=== PATIENT | male | born 1945 | race Caucasian/White ===

== ENCOUNTER 2022-05-26 10:55 | Inpatient (IN) ==
--- NOTE | 2022-05-26 11:21 | Emergency Department Note ---
History of Present Illness General Chief complaint: Fall Stated complaint: FALL, L SIDE WEAKNESS Time Seen by Provider: 05/26/22 11:06 Source: patient, EMS, RN notes reviewed and old records reviewed (I did review the notes from EMS) Mode of arrival: ambulatory Limitations: no limitations History of Present Illness This patient is a 77-year-old male who comes in with weakness on his and numbness on his left side. He fell last night around 7 or 8 he said he was leaning against the counter and kind of slid down he did hit his head he has minimal headache there is no loss of conscious no neck pain. He thinks he went to bed around 10:00 and felt like he was feeling okay woke up around 7 today and noticed that he was weak and numb on his left side more so numbness and weakness he does have trouble with his legs normally due to back issues but not his arm. Denies any trouble speaking or swallowing he is not on any blood thinners she has a minimal headache no change in vision. No chest pain or shortness of breath no abdominal pain no fever chills he does do peritoneal dialysis at home. Home Medications Medication Instructions Recorded Confirmed Type allopurinol 100 mg tablet 200 mg PO DAILY 03/23/21 05/26/22 History carvedilol 3.125 mg tablet 3.125 mg PO BID 03/23/21 05/26/22 History latanoprost 0.005 % eye drops 1 drp OPB HS 03/23/21 05/26/22 History oxycodone 5 mg tablet 7.5 mg PO Q6H PRN Pain 03/23/21 05/26/22 History triamcinolone acetonide 0.1 % 1 applic topical DIRECTED PRN 03/23/21 05/26/22 History topical ointment Skin Irritation lactulose 10 gram/15 mL oral 30 ml PO DAILY 05/26/22 05/26/22 History solution sevelamer carbonate 800 mg tablet 800 mg PO TIDM 05/26/22 05/26/22 History torsemide 100 mg tablet 100 mg PO DAILY 05/26/22 05/26/22 History Allergies Allergy/AdvReac Type Severity Reaction Status Date / Time No Known Allergies Allergy Verified 03/23/21 15:27 Past Med/Surg History Medical History Anemia of renal disease ESRD (end stage renal disease) on dialysis Peritoneal dialysis Glaucoma Gout History of nephrolithiasis HLD (hyperlipidemia) HTN (hypertension) Lumbar stenosis with neurogenic claudication Pre-diabetes Spondylolisthesis of lumbar region Surgical History History of lumbar fusion Hx of cataract extraction Hx of colonoscopy Hx of prostatectomy robotic assisted retropubic 2013 Family History Mother , at 88 Stroke Father , in 60s Heart disease Social History Smoking Status: Never smoker Tobacco Type: Smokeless Tobacco (Dip or Chew) Second Hand Exposure: No; Do You Dip or Chew Tobacco: Yes; Tobacco Cessation Education Requested by Patient: No Hx Alcohol Use: No Hx Substance Use: No Preferred Language: Liberian Communication Ability: Effective Food And Drug Research Scientist Required: No Beliefs That Will Affect Care: None marital status: Current Living Situation: Spouse Other Information That Helps Us Care for You: No Feels Safe at Home: Yes Safety Concerns: Feels Safe At This Time Assistive Devices: Cane Immunizations: Past medical historyperitoneal dialysis. He says he is on dialysis secondary to Advil/NSAID use he says he is on this permanently since February Social historyl[facility] in the [facility] Review of Systems A total of 10 systems reviewed and were otherwise negative Physical Exam Vital Signs Vital Signs - 24 hr 05/26/22 10:59 05/26/22 11:18 05/26/22 12:19 Temperature Temperature Source Pulse Rate 60 61 Pulse Rate [Right Apical] 61 Pulse Rate from SpO2 Sensor Respiratory Rate 16 16 Respiratory Effort / Characteristics Non-Labored Spontaneous Non-Labored Spontaneous Respiratory Depth Normal Normal Respiratory Pattern Regular Regular Blood Pressure Blood Pressure [Left Arm] 125/76 Blood Pressure Mean Blood Pressure Mean [Left Arm] 92 Pulse Oximetry 100 Oxygen Delivery Method Room Air Sepsis Recent Fever Within 48 Hours No Sepsis New/Unexplained Change in Mental Status No Sepsis Action Taken by Nursing No Action Required 05/26/22 12:24 05/26/22 11:16 05/26/22 12:00 Temperature 36.6 C Temperature Source Oral Pulse Rate 59 L 61 Pulse Rate [Right Apical] Pulse Rate from SpO2 Sensor 61 Respiratory Rate 15 16 Respiratory Effort / Characteristics Respiratory Depth Respiratory Pattern Blood Pressure 125/76 144/79 H Blood Pressure [Left Arm] Blood Pressure Mean 92 100 Blood Pressure Mean [Left Arm] Pulse Oximetry 97 100 Oxygen Delivery Method Room Air Room Air Sepsis Recent Fever Within 48 Hours Sepsis New/Unexplained Change in Mental Status Sepsis Action Taken by Nursing 05/26/22 12:44 05/26/22 13:00 05/26/22 13:30 Temperature Temperature Source Pulse Rate 65 74 65 Pulse Rate [Right Apical] Pulse Rate from SpO2 Sensor 67 73 66 Respiratory Rate 16 10 L 14 Respiratory Effort / Characteristics Respiratory Depth Respiratory Pattern Blood Pressure 128/72 121/70 127/73 Blood Pressure [Left Arm] Blood Pressure Mean 90 87 91 Blood Pressure Mean [Left Arm] Pulse Oximetry 96 94 97 Oxygen Delivery Method Room Air Room Air Room Air Sepsis Recent Fever Within 48 Hours Sepsis New/Unexplained Change in Mental Status Sepsis Action Taken by Nursing 05/26/22 14:00 Temperature Temperature Source Pulse Rate 65 Pulse Rate [Right Apical] Pulse Rate from SpO2 Sensor 66 Respiratory Rate 16 Respiratory Effort / Characteristics Respiratory Depth Respiratory Pattern Blood Pressure 148/77 H Blood Pressure [Left Arm] Blood Pressure Mean 100 Blood Pressure Mean [Left Arm] Pulse Oximetry 96 Oxygen Delivery Method Room Air Sepsis Recent Fever Within 48 Hours Sepsis New/Unexplained Change in Mental Status Sepsis Action Taken by Nursing General: Well developed well nourished older male who appears in no acute distress, breathing comfortably on room air. Normal speech HEENT: Normal cephalic atraumatic. Pupils are equal round and reactive to light. Extraocular movements are intact. Oropharynx is pink with moist mucous membranes. No swelling of the mouth lips or tongue. Neck: Supple with a midline trachea. No meningeal signs or stiffness, no JVD or bruits. No Stridor. Chest: Clear to auscultation bilaterally. No wheezes or rhonchi. No increased work of breathing. Heart: Regular rate and rhythm without murmurs or gallops. Abdomen: Soft nontender, nondistended without rebound guarding or rigidity. Extremities: No cyanosis clubbing or edema. No calf tenderness or assymetry Spine/Back. Non tender to palpation. No CVA tenderness Skin: Good turgor without rashes. Neurologic exam: Cranial nerves two through 12 are intact. Sensation is decreased to light touch in the left arm and leg. 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 Course Administered Medications Sevelamer HCl (Sevelamer Hcl 800 Mg Tablet) 800 mg PO TIDM MITZY Stop: 06/25/22 16:59 Last Admin: 05/26/22 18:04 Dose: Not Given Documented By: DW Discontinued Medications Aspirin (Aspirin 81 Mg Chew) 324 mg PO NOW STA Stop: 05/26/22 13:13 Last Admin: 05/26/22 13:29 Dose: 324 mg Documented By: TOMASZ Clopidogrel Bisulfate (Clopidogrel Bisulfate 300 Mg Tab) 600 mg PO NOW STA Stop: 05/26/22 13:13 Last Admin: 05/26/22 13:30 Dose: 600 mg Documented By: TOMASZ Sodium Chloride (Nss 1000ml) 500 mls @ 999 mls/hr IV .Q31M ONE Stop: 05/26/22 13:59 Last Infusion: 05/26/22 14:57 Dose: 0 mls/hr Documented By: Admin: 05/26/22 14:12 Dose: 999 mls/hr Documented By: ALMITA Ioversol (Optiray 320 500ml) 110 ml IV ONCE ONE Stop: 05/26/22 12:43 Last Admin: 05/26/22 12:43 Dose: 110 ml Documented By: JB Critical Care Time Critical Care Time: Yes Total Critical Care Time: 40 Due to the patient presenting with strokelike symptoms, the need to call a stroke alert, discussions with multiple consultants including neurology and consideration for potential thrombolytics or neuro intervention that are time- limited, frequent reassessment and family discussion, I have personally spent greater than 30 minutes of critical care time in the direct management of this patient. This includes bedside care, interpretation of diagnostic studies, and testing, discussion with consultants, patient, and family members, and other required patient management activities. This 30 minutes is in excess of all separately billable procedures. Medical Decision Making Differential Diagnosis CVA, intracranial hemorrhage, trauma, cervical spine injury, TIA, infection, electrolyte or metabolic abnormal Medical Records Attestation: I reviewed the patient's medical records. Home Medications Current Medication List: was personally reviewed by me Laboratory Data Attestation: I reviewed the patient's lab results. 05/26/22 11:10 05/26/22 11:10 Lab Results 05/26/22 05/26/22 05/26/22 Range/Units 11:03 11:10 11:10 WBC 5.50 (4.8-10.8) K/ul RBC 4.00 L (4.70-6.10) M/uL Hgb 12.5 L (14.0-18.0) g/dl POC Hgb (14.0-18.0) g/dl Hct 37.2 L (42.0-52.0) % POC Hct (42-52) % MCV 93.0 (80.0-100.0) fL MCH 31.3 (25.0-34.0) pg MCHC 33.6 (32.0-36.0) g/dL RDW Std Deviation 56.7 H (36.4-46.3) fL RDW Coeff of Bayron 16.5 H (11.5-14.5) % Plt Count 256 (130-400) K/uL MPV 10.0 (9.4-12.4) fL Immature Gran % (Auto) 0.2 % Neut % (Auto) 61.8 % Lymph % (Auto) 22.0 % [place] % (Auto) 8.7 % Eos % (Auto) 6.2 % Baso % (Auto) 1.1 % Neut # (Auto) 3.40 (1.40-6.50) K/uL Lymph # (Auto) 1.21 (1.2-3.4) K/uL [place] # (Auto) 0.48 (0.11-0.59) K/uL Eos # (Auto) 0.34 (0-0.50) K/uL Baso # (Auto) 0.06 (0-0.2) K/uL Immature Gran # (Auto) 0.01 (0.01-0.20) K/uL PT 10.2 (9.0-12.0) Seconds INR 1.0 (0.9-1.1) APTT 25.2 (21.0-31.0) Seconds PTT Ratio 0.9 POC Sodium (135-144) mmol/L Sodium (136-145) mmol/L POC Potassium (3.3-5.0) mmol/L Potassium (3.5-5.1) mmol/L POC Chloride (101-112) mmol/L Chloride (98-107) mmol/L Carbon Dioxide (21-32) mmol/L POC Total CO2 (24-31) mmol/L Anion Gap (3-11) POC Anion Gap (16-25) mmol/L POC BUN (7-18) mg/dl BUN (6-23) mg/dl Creatinine (0.6-1.4) mg/dl POC Creatinine (0.6-1.3) mg/dl Est Cr Clr Drug Dosing ml/min Est GFR ( Amer) ml/min Est GFR (Non-Af Amer) ml/min BUN/Creatinine Ratio (10-20) Glucose (70-99(Fasting)) mg/dl POC Glucose 72 (70-99) mg/dl POC Glucose (other) (70-99) mg/dl Calcium (8.6-10.3) mg/dl POC Ioniz Calcium Karlo (1.12-1.32) mmol/l Magnesium (1.7-2.4) mg/dl Total Bilirubin (0.2-1.0) mg/dl AST (13-39) U/L ALT (7-52) U/L Alkaline Phosphatase (34-104) U/L Troponin I High Sens (0-20) pg/ml Total Protein (6.0-8.3) gm/dl Albumin (3.4-5.0) gm/dl Globulin (2.5-4.0) gm/dl Albumin/Globulin Ratio (0.9-2) SARS-CoV-2, RNA, NAAT (NEGATIVE) Blood Type Antibody Screen 05/26/22 05/26/22 05/26/22 Range/Units 11:10 11:11 11:36 WBC (4.8-10.8) K/ul RBC (4.70-6.10) M/uL Hgb (14.0-18.0) g/dl POC Hgb 11.2 L (14.0-18.0) g/dl Hct (42.0-52.0) % POC Hct 33 L (42-52) % MCV (80.0-100.0) fL MCH (25.0-34.0) pg MCHC (32.0-36.0) g/dL RDW Std Deviation (36.4-46.3) fL RDW Coeff of Bayron (11.5-14.5) % Plt Count (130-400) K/uL MPV (9.4-12.4) fL Immature Gran % (Auto) % Neut % (Auto) % Lymph % (Auto) % [place] % (Auto) % Eos % (Auto) % Baso % (Auto) % Neut # (Auto) (1.40-6.50) K/uL Lymph # (Auto) (1.2-3.4) K/uL [place] # (Auto) (0.11-0.59) K/uL Eos # (Auto) (0-0.50) K/uL Baso # (Auto) (0-0.2) K/uL Immature Gran # (Auto) (0.01-0.20) K/uL PT (9.0-12.0) Seconds INR (0.9-1.1) APTT (21.0-31.0) Seconds PTT Ratio POC Sodium 137 (135-144) mmol/L Sodium 134 L (136-145) mmol/L POC Potassium 4.6 (3.3-5.0) mmol/L Potassium 4.0 (3.5-5.1) mmol/L POC Chloride 99 L (101-112) mmol/L Chloride 95 L (98-107) mmol/L Carbon Dioxide 25 (21-32) mmol/L POC Total CO2 26 (24-31) mmol/L Anion Gap 14 H (3-11) POC Anion Gap 17.0 (16-25) mmol/L POC BUN 64 H (7-18) mg/dl BUN 55 H (6-23) mg/dl Creatinine 6.35 H* (0.6-1.4) mg/dl POC Creatinine 6.7 H* (0.6-1.3) mg/dl Est Cr Clr Drug Dosing 8.9 ml/min Est GFR ( Amer) 9.0 ml/min Est GFR (Non-Af Amer) 7.8 ml/min BUN/Creatinine Ratio 8.7 L (10-20) Glucose 92 (70-99(Fasting)) mg/dl POC Glucose (70-99) mg/dl POC Glucose (other) 87 (70-99) mg/dl Calcium 9.8 (8.6-10.3) mg/dl POC Ioniz Calcium Karlo 1.04 L (1.12-1.32) mmol/l Magnesium 2.4 (1.7-2.4) mg/dl Total Bilirubin 0.5 (0.2-1.0) mg/dl AST 26 (13-39) U/L ALT 21 (7-52) U/L Alkaline Phosphatase 69 (34-104) U/L Troponin I High Sens 18.1 (0-20) pg/ml Total Protein 8.0 (6.0-8.3) gm/dl Albumin 4.0 (3.4-5.0) gm/dl Globulin 4.0 (2.5-4.0) gm/dl Albumin/Globulin Ratio 1.0 (0.9-2) SARS-CoV-2, RNA, NAAT (NEGATIVE) Blood Type A Negative Antibody Screen NEGATIVE 05/26/22 Range/Units 12:21 WBC (4.8-10.8) K/ul RBC (4.70-6.10) M/uL Hgb (14.0-18.0) g/dl POC Hgb (14.0-18.0) g/dl Hct (42.0-52.0) % POC Hct (42-52) % MCV (80.0-100.0) fL MCH (25.0-34.0) pg MCHC (32.0-36.0) g/dL RDW Std Deviation (36.4-46.3) fL RDW Coeff of Bayron (11.5-14.5) % Plt Count (130-400) K/uL MPV (9.4-12.4) fL Immature Gran % (Auto) % Neut % (Auto) % Lymph % (Auto) % [place] % (Auto) % Eos % (Auto) % Baso % (Auto) % Neut # (Auto) (1.40-6.50) K/uL Lymph # (Auto) (1.2-3.4) K/uL [place] # (Auto) (0.11-0.59) K/uL Eos # (Auto) (0-0.50) K/uL Baso # (Auto) (0-0.2) K/uL Immature Gran # (Auto) (0.01-0.20) K/uL PT (9.0-12.0) Seconds INR (0.9-1.1) APTT (21.0-31.0) Seconds PTT Ratio POC Sodium (135-144) mmol/L Sodium (136-145) mmol/L POC Potassium (3.3-5.0) mmol/L Potassium (3.5-5.1) mmol/L POC Chloride (101-112) mmol/L Chloride (98-107) mmol/L Carbon Dioxide (21-32) mmol/L POC Total CO2 (24-31) mmol/L Anion Gap (3-11) POC Anion Gap (16-25) mmol/L POC BUN (7-18) mg/dl BUN (6-23) mg/dl Creatinine (0.6-1.4) mg/dl POC Creatinine (0.6-1.3) mg/dl Est Cr Clr Drug Dosing ml/min Est GFR ( Amer) ml/min Est GFR (Non-Af Amer) ml/min BUN/Creatinine Ratio (10-20) Glucose (70-99(Fasting)) mg/dl POC Glucose (70-99) mg/dl POC Glucose (other) (70-99) mg/dl Calcium (8.6-10.3) mg/dl POC Ioniz Calcium Karlo (1.12-1.32) mmol/l Magnesium (1.7-2.4) mg/dl Total Bilirubin (0.2-1.0) mg/dl AST (13-39) U/L ALT (7-52) U/L Alkaline Phosphatase (34-104) U/L Troponin I High Sens (0-20) pg/ml Total Protein (6.0-8.3) gm/dl Albumin (3.4-5.0) gm/dl Globulin (2.5-4.0) gm/dl Albumin/Globulin Ratio (0.9-2) SARS-CoV-2, RNA, NAAT NEGATIVE (NEGATIVE) Blood Type Antibody Screen Imaging Data Attestation: I personally reviewed and interpreted this imaging study as follows: My Impression: Head CTno hemorrhage or mass effect seen Radiologist's Impression: Head CT 05/26/22 11:[address] DOSE: HISTORY: Left-sided paresthesias. Recent head injury. neuro deficit, acute stroke suspected TECHNIQUE: Multiaxial CT images of the head were performed without the use of intravenous contrast. Automated exposure control was utilized for this study. A dose lowering technique was utilized adhering to the principles of ALARA. Comparison: None. Findings: The paranasal sinuses and mastoid air cells are clear. There is a 2.5 cm lucent lesion within the high convexity right parietal bone. This favors a benign lesion such as a hemangioma. Otherwise, the calvarium and skull base are intact. The ventricles and sulci which remain mild age-related involutional changes. There is no hematoma, midline shift, intracranial mass identified. Within the right posterior sylvian fissure on image 16 there is a punctate hyperdense focus suspicious for thrombus within a branch of the distal right MCA. Distal to this area there is a focal hypodensity within the right parietal lobe likely corresponding to an acute distal MCA territory infarct. This is best seen on image 19. Impression: Within the right posterior sylvian fissure there is a punctate hyperdense focus suspicious for thrombus within a branch of the distal right MCA. Distal to this area there is a focal hypodensity within the right parietal lobe likely corresponding to an acute distal MCA territory infarct. ACT 112: Negative or not required by law. Electronically signed by: Marito Mcgee M.D. 05/26/2022 11:[address] 05/26/22 11:18 CT cervical spine wo con CLINICAL HISTORY: fall TECHNIQUE: Multidetector row helical CT of the cervical spine was performed without administration of intravenous contrast. Coronal and sagittal reformations were obtained. Automated dose lowering techniques and/or adjustment according to patient size were utilized for this exam. Comparison: None available at the time of this dictation. FINDINGS: No acute fractures or subluxations are identified. Degenerative changes are seen in the visualized spine. The alignment is normal. Soft tissues are unremarkable. IMPRESSION: Degenerative changes without evidence of acute bony injury. ACT 112: Negative or not required by law. Electronically signed by: Ren Thompson M.D. 05/26/2022 11:37 AM Head CTA 05/26/22 12:13 HEAD CTA HISTORY: Left-sided paresthesias. Abnormal head CT. cva, eval for large vessel occlusion TECHNIQUE: Multiaxial CT images of the head were performed both before and after the intravenous administration of contrast to evaluate the major cerebral vessels. Maximum intensity projection images were also obtained. A dose lowe ring technique was utilized adhering to the principles of ALARA. COMPARISON: None. FINDINGS: Small area of hypodensity within the right parietal lobe again noted consistent with an acute infarct. There is a small distal branch of the right MCA within the distal sylvian fissure best seen on images 169 through 179 which is severely attenuated consistent with the area of thrombus seen on the prior study. This accounts for the acute right MCA territory infarct. Otherwise, the bilateral ACAs, bilateral sewer repairer, and left MCA show no significant stenosis, occlusion, or aneurysm. Mild calcified plaque within the bilateral carotid siphons without significant stenosis or occlusion. A basilar artery and left vertebral artery widely patent. 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 The distal right vertebral artery is severely hypoplastic and not well visualized. The major dural venous sinuses are patent. IMPRESSION: 1. Small area of hypodensity within the right parietal lobe again noted consistent with an acute infarct. 2. There is a small distal branch of the right MCA within the distal sylvian fissure which is severely attenuated consistent with the area of thrombus seen on the prior study. This accounts for the acute right MCA territory infarct. 3. 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 4. Severely hypoplastic distal right vertebral artery which is not well visualized. ACT 112: Negative or not required by law. Electronically signed by: Marito Mcgee M.D. 05/26/2022 1:09 PM Neck CTA 05/26/22 12:13 CT ANGIOGRAPHY OF THE NECK WITH CONTRAST CLINICAL HISTORY: Neuro deficit. Possible stroke. Evaluate for large vessel occlusion. COMPARISON STUDY: No previous studies for comparison. Technique: CT angiography of the carotid and vertebral arteries was obtained using [employer] and 3D reconstruction on an independent workstation. NASCET criteria was utilized. Automated exposure control was utilized for the study. A dose lowering technique was utilized adhering to the principles of ALARA. CT DOSE: 509.50 mGy.cm Findings: Visualized portions of the lung apices are unremarkable. There is no cervical lymphadenopathy. There is moderate plaque within the proximal left internal carotid artery without stenosis. The left common carotid and cervical internal carotid arteries are patent. There is moderate plaque of the left subclavian artery without stenosis. The left vertebral artery is dominant and patent. The right vertebral artery is diminutive and ends in PICA. There is no stenosis within the right common carotid artery. Moderate plaque within this vessel is noted. There is extensive plaque within the proximal right internal carotid artery. Vessel narrowing is difficult to measure on the axial images however there is approximate 40-50% stenosis of the proximal right internal carotid artery. No additional stenoses are identified. IMPRESSION: 1. Extensive plaque within the proximal right internal carotid artery with approximate 40-50% stenosis. 2. Moderate plaque within the left internal carotid artery without stenosis. 3. Dominant, patent left carotid artery. Diminutive right vertebral artery, on a congenital basis. ACT 112: Negative or not required by law. Electronically signed by: Junito Kim M.D. 05/26/2022 1:06 PM ECG Data Attestation: I personally reviewed and interpreted this ECG as follows: Indication: + weakness Rate (beats per minute): 58 Rhythm: + sinus bradycardia ECG Intervals/blocks: + Normal QRS, + Normal QT and + Normal UT ECG [place]: + Normal ECG ST segments: + Normal ST segments ECG Findings: no PACs or no PVCs Comparison ECG Date: from (03/23/21) Change: no significant change MDM Narrative This patient comes in as described above he was placed in room C9. He has strokelike symptoms. It sounds like they likely started last night he woke up this way but also had an episode last night when he fell. He is on no blood thinners. He is outside the tPA window at this point. I did call a stroke alert and talk to Dr. Epstein. Initially I did the CAT scan of the head and neck without contrast as I wanted to clarify his renal status better to ensure that he was permanently on dialysis. I did talk to Dr. 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 She said that if he still makes urine they would try to avoid contrast if possible. If it may alter his medical care, the then we can do it. I discussed this with Dr. Epstein when the CAT scan came back and the radiologist was concerned on the CAT scan for a MCA occlusion Dr. Epstein the neurologist felt like the benefit would outweigh the risk and if he has a large vessel occlusion he may be amenable to an intervention. I discussed this with the family and explained the risk and the benefits and they agree. CT angiogram does show an occlusion but it is distal to the point where it is not amenable to neuro intervention. Dr. Epstein reviewed the angiography and agrees. He did recommend putting the patient on aspirin and Plavix which I ordered both also IV hydration which I ordered 500 cc bolus given the fact that he is a dialysis p atient I started with just 500 and having permissive hypertension up to 220 systolic. I did consult and discussed the case with the [facility] team and the patient will be admitted Continuous cardiac monitoring: Orders placed in EMR for continuous cardiac monitoring. Upon my interpretation patient was noted to be sinus bradycardia with a rate of 60 Impression & Plan Stroke, Acute left-sided weakness, Left sided numbness, ESRD (end stage renal disease) on dialysis Discharge Plan Visit Data Chief Complaint: Fall Stated Complaint: FALL, L SIDE WEAKNESS ED Provider: Medhat Ambrocio Discharge Problem: Stroke, Acute left-sided weakness, Left sided numbness, ESRD (end stage renal disease) on dialysis Patient Disposition: Admitted As Inpatient Discharge Instructions Interventions: ED Discharge Assessment Last Done: 05/26/22 17:05
[2022-05-26 11:32] LABS: Basophils # (auto) 0.06 K/uL (0-0.2); Basophils % (auto) 1.1 %; Eosinophils # (auto) 0.34 K/uL (0-0.50); Eosinophils % (auto) 6.2 %; Hematocrit (blood only) 37.2 % (42.0-52.0); Hemoglobin 12.5 g/dl (14.0-18.0); Immature Granulocytes # (auto) 0.01 K/uL (0.01-0.20); Immature Granulocytes % (auto) 0.2 %; Lymphocytes # (auto) 1.21 K/uL (1.2-3.4); Mean Corpuscular Hemoglobin 31.3 pg (25.0-34.0); Mean Corpuscular Hgb Conc 33.6 g/dL (32.0-36.0); Monocytes # (auto) 0.48 K/uL (0.11-0.59); Monocytes % (auto) 8.7 %; Neutrophils % (auto) 61.8 %; Platelet Count 256 K/uL (130-400); RDW Coefficient of Variation 16.5 % (11.5-14.5); RDW Standard Deviation 56.7 fL (36.4-46.3)
--- NOTE | 2022-05-26 11:39 | CT Scan Report ---
CT cervical spine wo con CLINICAL HISTORY: fall TECHNIQUE: Multidetector row helical CT of the cervical spine was performed without administration of intravenous contrast. Coronal and sagittal reformations were obtained. Automated dose lowering techn iques and/or adjustment according to patient size were utilized for this exam. Comparison: None available at the time of this dictation. FINDINGS: No acute fractures or subluxations are identified. Degenerative changes are seen in the visualized sp ine. The alignment is normal. Soft tissues are unremarkable. IMPRESSION: Degenerative changes without evidence of acute bony injury. ACT 112: Negative or not required by law. Electronically signed by: Ren Thompson M.D. 05/26/2022 11:37 AM
[2022-05-26 11:40] LABS: iSTAT Creatinine 6.7 mg/dl (0.6-1.3); iSTAT Hemoglobin 11.2 g/dl (14.0-18.0); iSTAT Ionized Calcium 1.04 mmol/l (1.12-1.32); iSTAT Potassium 4.6 mmol/L (3.3-5.0)
--- NOTE | 2022-05-26 11:49 | CT Scan Report ---
HEAD CT NONCONTRAST CT DOSE: HISTORY: Left-sided paresthesias. Recent head injury. neuro deficit, acute stroke suspected TECHNIQUE: Multiaxial CT images of the head were performed without the use of intravenous contrast. A utomated exposure control was utilized for this study. A dose lowering technique was utilized adheri ng to the principles of ALARA. Comparison: None. Findings: The paranasal sinuses and mastoid air cells are clear. There is a 2.5 cm lucent lesion with in the high convexity right parietal bone. This favors a benign lesion such as a hemangioma. Otherwis e, the calvarium and skull base are intact. The ventricles and sulci which remain mild age-related in volutional changes. There is no hematoma, midline shift, intracranial mass identified. Within the rig ht posterior sylvian fissure on image 16 there is a punctate hyperdense focus suspicious for thrombus within a branch of the distal right MCA. Distal to this area there is a focal hypodensity within the right parietal lobe likely corresponding to an acute distal MCA territory infarct. This is best seen on image 19. Impression: Within the right posterior sylvian fissure there is a punctate hyperdense focus suspicious for thromb us within a branch of the distal right MCA. Distal to this area there is a focal hypodensity within t he right parietal lobe likely corresponding to an acute distal MCA territory infarct. ACT 112: Negative or not required by law. Electronically signed by: Marito Mcgee M.D. 05/26/2022 11:47 AM
[2022-05-26 12:00] LABS: BUN Creatinine Ratio 8.7 (10-20); Bilirubin,Total 0.5 mg/dl (0.2-1.0); Calcium 9.8 mg/dl (8.6-10.3); Creatinine Clr Calc Pharmacy 8.9 ml/min; Est GFR (Non-African American) 7.8 ml/min; Magnesium 2.4 mg/dl (1.7-2.4); Troponin I High Sensitivity 18.1 pg/ml (0-20)
[2022-05-26 12:04] LABS: Partial Thromboplastin Ratio 0.9; Partial Thromboplastin Time 25.2 Seconds (21.0-31.0); Prothrombin Time 10.2 Seconds (9.0-12.0)
[2022-05-26] MEDS ORDERED: OPTIRAY 320 500ml IV ONE (12:42)
--- NOTE | 2022-05-26 13:09 | CT Scan Report ---
CT ANGIOGRAPHY OF THE NECK WITH CONTRAST CLINICAL HISTORY: Neuro deficit. Possible stroke. Evaluate for large vessel occlusion. COMPARISON STUDY: No previous studies for comparison. Technique: CT angiography of the carotid and vertebral arteries was obtained using [employer] and 3D rec onstruction on an independent workstation. NASCET criteria was utilized. Automated exposure control was utilized for the study. A dose lowering technique was utilized adhering to the principles of ALA RA. CT DOSE: 509.50 mGy.cm Findings: Visualized portions of the lung apices are unremarkable. There is no cervical lymphadenopat hy. There is moderate plaque within the proximal left internal carotid artery without stenosis. The l eft common carotid and cervical internal carotid arteries are patent. There is moderate plaque of the left subclavian artery without stenosis. The left vertebral artery is dominant and patent. The right vertebral artery is diminutive and ends in PICA. There is no stenosis within the right common caroti d artery. Moderate plaque within this vessel is noted. There is extensive plaque within the proximal right internal carotid artery. Vessel narrowing is difficult to measure on the axial images however t here is approximate 40-50% stenosis of the proximal right internal carotid artery. No additional sten oses are identified. IMPRESSION: 1. Extensive plaque within the proximal right internal carotid artery with approximate 40-50% stenosi s. 2. Moderate plaque within the left internal carotid artery without stenosis. 3. Dominant, patent left carotid artery. Diminutive right vertebral artery, on a congenital basis. ACT 112: Negative or not required by law. Electronically signed by: Junito Kim M.D. 05/26/2022 1:06 PM
--- NOTE | 2022-05-26 13:11 | CT Scan Report ---
HEAD CTA HISTORY: Left-sided paresthesias. Abnormal head CT. cva, eval for large vessel occlusion TECHNIQUE: Multiaxial CT images of the head were performed both before and after the intravenous admi nistration of contrast to evaluate the major cerebral vessels. Maximum intensity projection images we re also obtained. A dose lowering technique was utilized adhering to the principles of ALARA. COMPARISON: None. FINDINGS: Small area of hypodensity within the right parietal lobe again noted consistent with an acu te infarct. There is a small distal branch of the right MCA within the distal sylvian fissure best se en on images 169 through 179 which is severely attenuated consistent with the area of thrombus seen o n the prior study. This accounts for the acute right MCA territory infarct. Otherwise, the bilateral ACAs, bilateral ror engineer, and left MCA show no significant stenosis, occlusion, or aneurysm. Mild calcifi ed plaque within the bilateral carotid siphons without significant stenosis or occlusion. A basilar a rtery and left vertebral artery widely patent. Focal fusiform aneurysmal dilatation of the distal lef t vertebral artery on image 91 measuring 5.6 mm. The distal right vertebral artery is severely hypopl astic and not well visualized. The major dural venous sinuses are patent. IMPRESSION: 1. Small area of hypodensity within the right parietal lobe again noted consistent with an acute infa rct. 2. There is a small distal branch of the right MCA within the distal sylvian fissure which is severel y attenuated consistent with the area of thrombus seen on the prior study. This accounts for the acut e right MCA territory infarct. 3. 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 4. Severely hypoplastic distal right vertebral artery which is not well visualized. ACT 112: Negative or not required by law. Electronically signed by: Marito Mcgee M.D. 05/26/2022 1:09 PM
[2022-05-26] MEDS ORDERED: ASPIRIN 81 MG CHEW PO STA (13:12)
[2022-05-26] MEDS ORDERED: CLOPIDOGREL BISULFATE 300 MG TAB PO STA (13:12)
[2022-05-26] MEDS ORDERED: SODIUM CHLORIDE 0.9% 1000ML 500 ML IV ONE (13:29)
--- NOTE | 2022-05-26 14:05 | History & Physical Report ---
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 2. There is a small distal branch of the right MCA within the distal sylvian fissure which is severely attenuated consistent with the area of thrombus seen on the prior study. This accounts for the acute right MCA territory infarct. 3. 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 4. Severely hypoplastic distal right vertebral artery which is not well visualized. Head CT: Within the right posterior sylvian fissure there is a punctate hyperdense focus suspicious for thrombus within a branch of the distal right MCA. Distal to this area there is a focal hypodensity within the right parietal lobe likely corresponding to an acute distal MCA territory infarct. admit to PCU Consult neurology continue dual antiplatelet therapy with ASA and plavix Initiate statin therapy continue tele monitoring echocardiogram pt out of window for TPA and per Tele stroke distal occlusion not amendable to intervention Neuro checks permissive HTN A1c, lipid panel in am PT/OT/ST ESRD on PD nephrology consulted daily weights, renal diet HTN allow for permissive HTN will hold bp meds for now, coreg and torsemide Pre diabetes a1c 6.0 03/2022 diet/lifestyle modifications no indication for monitoring at this time Gout continue allopurinol DVT ppx: ASA, Plavix, SCDS PCP: Praneeth FULL CODE Dispo: Admit to PCU for further stroke work up A total of 90 minutes was spent with greater than 50% of that time personally viewing all current laboratory work and diagnostic imaging studies obtained in the ED. Additionally, I was able to view the patients past medication reconciliation and history with direct visualization in the patients chart. Included in the time above, a portion of that time was spent assessing the patient while discussing and collaborating with specialists, if necessary, and making medical decision making on treatment plan. All of the above was collaborated with Dr. Ennis. Please see addendum for further details. History of Present Illness Chief Complaint: L sided weakness/numbness x 1 day. Primary Care Provider: Barrett Dacosta MD This is a 77-year-old male who has significant past medical history of end-stage renal disease on PD, T2DM, HTN, HLD, gout, anemia of renal disease, glaucoma, history of prostate cancer who presents to ED secondary to left-sided numbness and weakness since this morning. Patient fell last night around 7 or 8 when he was leaning against the counter and kind of slid down and hit his head but there was no loss of consciousness. EMS was summoned by but at that time he would not come to ER. He does have a minimal headache but no neck pain. He believes he went to bed around 10 PM and was feeling in his normal state of health at that time. He woke up at approximately 7 AM today and noticed that he was experiencing weakness and numbness to left side more than usual. This morning he was unable to walk. Typically he walks w/o assist device. He denies f/c/s, dizziness, lightheaded, cough, cp, sob, palpitations, n/v/d, abd pain, change in bowel or urinary habits. Currently he denies problems other than weakness/numbness to L arm/leg. He denies difficulty talking of swallowing. In ED patient was hemodynamically stable. A stroke alert was called due to neurological symptoms. Initial head CT concerning for suspicious thrombus within the branch of the distal right MCA as distal to this area there was a focal hypodensity within the right parietal lobe likely corresponding with an acute distal MCA territory infarct. He underwent head and neck CTA which revealed again small area of hypodensity within the right parietal lobe consistent with acute infarct, small distal branch of right MCA within distal sylvian fissure which is severely attenuated consistent with area of thrombus seen on the prior study. This accounts for the acute right MCA territory infarct. Foca fusiform aneurysm dilatation of the distal left vertebral artery measuring 5.6 mm as well as a severe hypoplastic distal right vertebral artery which is not well visualized. Neck CTA revealed extensive plaque within the proximal right internal carotid artery approximately 40 to 50% stenosis, moderate plaque within the left internal carotid artery without stenosis. Dominant, patent left carotid artery. 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 Telemetry neurologist recommended loading with ASA and Plavix. Patient was out of window for thrombolytic and occlusion to distal for intervention. Allergies Allergy/AdvReac Type Severity Reaction Status Date / Time No Known Allergies Allergy Verified 03/23/21 15:27 Home Medications Medication Instructions Recorded Confirmed Type allopurinol 100 mg tablet 200 mg PO DAILY 03/23/21 05/26/22 History carvedilol 3.125 mg tablet 3.125 mg PO BID 03/23/21 05/26/22 History latanoprost 0.005 % eye drops 1 drp OPB HS 03/23/21 05/26/22 History oxycodone 5 mg tablet 7.5 mg PO Q6H PRN Pain 03/23/21 05/26/22 History triamcinolone acetonide 0.1 % 1 applic topical DIRECTED PRN 03/23/21 05/26/22 History topical ointment Skin Irritation lactulose 10 gram/15 mL oral 30 ml PO DAILY 05/26/22 05/26/22 History solution sevelamer carbonate 800 mg tablet 800 mg PO TIDM 05/26/22 05/26/22 History torsemide 100 mg tablet 100 mg PO DAILY 05/26/22 05/26/22 History Past Med/Surg History Medical History Anemia of renal disease ESRD (end stage renal disease) on dialysis Peritoneal dialysis Glaucoma Gout History of nephrolithiasis HLD (hyperlipidemia) HTN (hypertension) Lumbar stenosis with neurogenic claudication Pre-diabetes Spondylolisthesis of lumbar region Surgical History History of lumbar fusion Hx of cataract extraction Hx of colonoscopy Hx of prostatectomy robotic assisted retropubic 2013 Family History Mother , at 88 Stroke Father , in 60s Heart disease Social History Smoking Status: Never smoker Tobacco Type: Smokeless Tobacco (Dip or Chew) Second Hand Exposure: No; Do You Dip or Chew Tobacco: Yes; Tobacco Cessation Education Requested by Patient: No Hx Alcohol Use: No Hx Substance Use: No Preferred Language: Kiswahili Communication Ability: Effective Oil Refiner Required: No Beliefs That Will Affect Care: None marital status: Current Living Situation: Spouse Other Information That Helps Us Care for You: No Feels Safe at Home: Yes Safety Concerns: Feels Safe At This Time Assistive Devices: Cane Review of Systems Review of Systems: All systems reviewed & are unremarkable except as noted in HPI & below Physical Exam Physical Exam: please refer to Dr. Ennis addendum for physical exam findings. Results & Data Results & Data Vital Signs (Past 12 Hours) Vital Signs Temp Pulse Pulse Resp BP BP Pulse Ox 05/26/22 13:00 74 10 L 121/70 94 05/26/22 12:44 65 16 128/72 96 05/26/22 12:00 61 16 144/79 H 100 05/26/22 11:16 59 L 15 125/76 97 05/26/22 12:24 36.6 C 05/26/22 12:19 61 05/26/22 11:18 61 16 125/76 100 05/26/22 10:59 60 16 O2 Del Method 05/26/22 13:00 Room Air 05/26/22 12:44 Room Air 05/26/22 12:00 Room Air 05/26/22 11:16 Room Air 05/26/22 12:24 05/26/22 12:19 05/26/22 11:18 Room Air 05/26/22 10:[address] 05/26/22 11:[address] DOSE: HISTORY: Left-sided paresthesias. Recent head injury. neuro deficit, acute stroke suspected TECHNIQUE: Multiaxial CT images of the head were performed without the use of intravenous contrast. Automated exposure control was utilized for this study. A dose lowering technique was utilized adhering to the principles of ALARA. Comparison: None. Findings: The paranasal sinuses and mastoid air cells are clear. There is a 2.5 cm lucent lesion within the high convexity right parietal bone. This favors a benign lesion such as a hemangioma. Otherwise, the calvarium and skull base are intact. The ventricles and sulci which remain mild age-related involutional changes. There is no hematoma, midline shift, intracranial mass identified. Within the right posterior sylvian fissure on image 16 there is a punctate hyperdense focus suspicious for thrombus within a branch of the distal right MCA. Distal to this area there is a focal hypodensity within the right parietal lobe likely corresponding to an acute distal MCA territory infarct. This is best seen on image 19. Impression: Within the right posterior sylvian fissure there is a punctate hyperdense focus suspicious for thrombus within a branch of the distal right MCA. Distal to this area there is a focal hypodensity within the right parietal lobe likely corresponding to an acute distal MCA territory infarct. ACT 112: Negative or not required by law. Electronically signed by: Marito Mcgee M.D. 05/26/2022 11:[address] 05/26/22 11:18 CT cervical spine wo con CLINICAL HISTORY: fall TECHNIQUE: Multidetector row helical CT of the cervical spine was performed without administration of intravenous contrast. Coronal and sagittal reformations were obtained. Automated dose lowering techniques and/or adjustment according to patient size were utilized for this exam. Comparison: None available at the time of this dictation. FINDINGS: No acute fractures or subluxations are identified. Degenerative changes are seen in the visualized spine. The alignment is normal. Soft tissues are unremarkable. IMPRESSION: Degenerative changes without evidence of acute bony injury. ACT 112: Negative or not required by law. Electronically signed by: Ren Thompson M.D. 05/26/2022 11:37 AM Head CTA 05/26/22 12:13 HEAD CTA HISTORY: Left-sided paresthesias. Abnormal head CT. cva, eval for large vessel occlusion TECHNIQUE: Multiaxial CT images of the head were performed both before and after the intravenous administration of contrast to evaluate the major cerebral vessels. Maximum intensity projection images were also obtained. A dose lowering technique was utilized adhering to the principles of ALARA. COMPARISON: None. FINDINGS: Small area of hypodensity within the right parietal lobe again noted consistent with an acute infarct. There is a small distal branch of the right MCA within the distal sylvian fissure best seen on images 169 through 179 which is severely attenuated consistent with the area of thrombus seen on the prior study. This accounts for the acute right MCA territory infarct. Otherwise, the bilateral ACAs, bilateral hall clerk, and left MCA show no significant stenosis, occlusion, or aneurysm. Mild calcified plaque within the bilateral carotid siphons without significant stenosis or occlusion. A basilar artery and left yakelin tebral artery widely patent. 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 The distal right vertebral artery is severely hypoplastic and not well visualized. The major dural venous sinuses are patent. IMPRESSION: 1. Small area of hypodensity within the right parietal lobe again noted consistent with an acute infarct. 2. There is a small distal branch of the right MCA within the distal sylvian fissure which is severely attenuated consistent with the area of thrombus seen on the prior study. This accounts for the acute right MCA territory infarct. 3. 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 4. Severely hypoplastic distal right vertebral artery which is not well visualized. ACT 112: Negative or not required by law. Electronically signed by: Marito Mcgee M.D. 05/26/2022 1:09 PM Neck CTA 05/26/22 12:13 CT ANGIOGRAPHY OF THE NECK WITH CONTRAST CLINICAL HISTORY: Neuro deficit. Possible stroke. Evaluate for large vessel occlusion. COMPARISON STUDY: No previous studies for comparison. Technique: CT angiography of the carotid and vertebral arteries was obtained using [employer] and 3D reconstruction on an independent workstation. NASCET criteria was utilized. Automated exposure control was utilized for the study. A dose lowering technique was utilized adhering to the principles of ALARA. CT DOSE: 509.50 mGy.cm Findings: Visualized portions of the lung apices are unremarkable. There is no cervical lymphadenopathy. There is moderate plaque within the proximal left internal carotid artery without stenosis. The left common carotid and cervical internal carotid arteries are patent. There is moderate plaque of the left subclavian artery without stenosis. The left vertebral artery is dominant and patent. The right vertebral artery is diminutive and ends in PICA. There is no stenosis within the right common carotid artery. Moderate plaque within this vessel is noted. There is extensive plaque within the proximal right internal carotid artery. Vessel narrowing is difficult to measure on the axial images however there is approximate 40-50% stenosis of the proximal right internal carotid artery. No additional stenoses are identified. IMPRESSION: 1. Extensive plaque within the proximal right internal carotid artery with approximate 40-50% stenosis. 2. Moderate plaque within the left internal carotid artery without stenosis. 3. Dominant, patent left carotid artery. Diminutive right vertebral artery, on a congenital basis. ACT 112: Negative or not required by law. Electronically signed by: Junito Kim M.D. 05/26/2022 1:06 PM Medications Administered Medication List Discontinued Medications Aspirin (Aspirin 81 Mg Chew) 324 mg PO NOW STA Stop: 05/26/22 13:13 Last Admin: 05/26/22 13:29 Dose: 324 mg Documented By: TOMASZ Clopidogrel Bisulfate (Clopidogrel Bisulfate 300 Mg Tab) 600 mg PO NOW STA Stop: 05/26/22 13:13 Last Admin: 05/26/22 13:30 Dose: 600 mg Documented By: TOMASZ Sodium Chloride (Nss 1000ml) 500 mls @ 999 mls/hr IV .Q31M ONE Stop: 05/26/22 13:59 Last Admin: 05/26/22 14:12 Dose: 999 mls/hr Documented By: ALMITA Ioversol (Optiray 320 500ml) 110 ml IV ONCE ONE Stop: 05/26/22 12:43 Last Admin: 05/26/22 12:43 Dose: 110 ml Documented By: JB ECG Rate (beats per minute): 58 Rhythm: sinus bradycardia Additional Comments: viewed by me COVID-19 Results Results COVID-19 Adm Lab Results: RBC 4.00 M/uL (4.70-6.10) L 05/26/22 WBC 5.50 K/ul (4.8-10.8) 05/26/22 Hgb 12.5 g/dl (14.0-18.0) L 05/26/22 Hct 37.2 % (42.0-52.0) L 05/26/22 Plt Count 256 K/uL (130-400) 05/26/22 Neutrophils (%) (Auto) 61.8 % 05/26/22 Lymphocytes (%) (Auto) 22.0 % 05/26/22 Monocytes # (Auto) 0.48 K/uL (0.11-0.59) 05/26/22 Eosinophils # (Auto) 0.34 K/uL (0-0.50) 05/26/22 Immature Granulocyte % (Auto) 0.2 % 05/26/22 Neutrophils # (Auto) 3.40 K/uL (1.40-6.50) 05/26/22 Lymphocytes # (Auto) 1.21 K/uL (1.2-3.4) 05/26/22 Monocytes # (Auto) 0.48 K/uL (0.11-0.59) 05/26/22 Eosinophils # (Auto) 0.34 K/uL (0-0.50) 05/26/22 Basophils # (Auto) 0.06 K/uL (0-0.2) 05/26/22 Immature Granulocyte # (Auto) 0.01 K/uL (0.01-0.20) 3 Na 134 mmol/L (136-145) L 05/26/22 K 4.0 mmol/L (3.5-5.1) 05/26/22 Cl 95 mmol/L (98-107) L 05/26/22 CO2 25 mmol/L (21-32) 05/26/22 Anion Gap 14 (3-11) H 05/26/22 BUN 55 mg/dl (6-23) H 05/26/22 Creatinine 6.35 mg/dl (0.6-1.4) H* 05/26/22 BUN/Creatinine Ratio 8.7 (10-20) L 05/26/22 Glucose Level 92 mg/dl (70-99(Fasting)) 05/26/22 Ca 9.8 mg/dl (8.6-10.3) 05/26/22 Total Bilirubin 0.5 mg/dl (0.2-1.0) 05/26/22 AST/SGOT 26 U/L (13-39) 05/26/22 ALT/SGPT 21 U/L (7-52) 05/26/22 Alkaline Phosphatase 69 U/L (34-104) 05/26/22 Total Protein 8.0 gm/dl (6.0-8.3) 05/26/22 Albumin 4.0 gm/dl (3.4-5.0) 05/26/22 Globulin 4.0 gm/dl (2.5-4.0) 05/26/22 Albumin/Globulin Ratio 1.0 (0.9-2) 05/26/22 PTT 25.2 Seconds (21.0-31.0) 05/26/22 INR 1.0 (0.9-1.1) 05/26/22 SARS-CoV-2, RNA, NAAT NEGATIVE (NEGATIVE) 05/26/22 Code Status & VTE Plan Code Status FULL CODE VTE Prophylaxis Plan VTE Prophylaxis will be ordered: Yes Supervising Physician Co-Signing Physician Notes History and physical exam performed by me. History notable for 77-year-old man with history of end-stage renal disease on peritoneal dialysis, diabetes mellitus, hypertension, gout, anemia, prostate cancer who presents with left-sided numbness and weakness this morning. According to and patient, patient had a fall yesterday night around 7 PM. Did not lose consciousness helped him as he was falling down and called EMS. She reported that he had some speech change at the time but that when EMS came out symptoms has resolved and he did not go with EMS. On waking up this morning, patient could not get up due to left-sided weakness. Patient also reports left-sided numbness especially and upper and lower extremities. Denies any changes speech, difficulty swallowing. Denies any dizziness, headache, nausea, vomiting. Denies any other complaints. On Exam, General: Elderly man in no distress Eyes: PERRL, conjunctivae normal, not pale, anicteric sclerae, EOM intact bilaterally ENMT: External ear and nose normal, oropharynx normal Respiratory: Normal respiratory effort, no respiratory distress, lungs clear to auscultation, no crackles and no wheezes Cardiovascular: RRR S1 S2 Gastrointestinal (Abdomen): Abdomen is not distended, soft, non-tender to palpation, no guarding, no palpable hepatosplenomegaly, normal bowel sounds Musculoskeletal: No pedal edema Neurologic: Alert and oriented x 3, deficits to fine touch on LUE/LLE, +Left arm drift, good hand manager management Psychiatric: Euthymic affect Labs notable for hemoglobin of 12.5, creatinine of 6.35, BUN of 55, CT head noted punctate hyperdense focus suspicious for thrombus within a branch of distal right MCA. CT angio head showed this small acute infarct in the right parietal lobe, small distal branch of the right MCA thrombus, fusiform aneurysmal dilatation of the distal left vertebral artery measuring 5.6 mm, severely hypoplastic distal right vertebral artery. CT angio of the neck noted extensive plaque within the proximal right internal carotid with approximate 40 to 50% stenosis, moderate plaque within the left internal carotid artery without stenosis, dominant patent left carotid artery, diminutive right vertebral artery on a congenital basis Acute CVA Per ER physician, patient was evaluated by neurologist. His past window for tPA and thrombosis beyond intervention Patient was loaded with aspirin and Plavix in the ER. We will continue aspirin 81 and Plavix 75 mg for now pending neurology evaluation Get echocardiogram. Check hemoglobin A1c and lipid panel Start atorvastatin PT/OT eval Nephrology consult for peritoneal dialysis Other plans as detailed by Josette Arce PA-C
--- NOTE | 2022-05-26 14:18 | Electrocardiogram Report ---
Test Reason : Blood Pressure : / mmHG Vent. Rate : 058 BPM Atrial Rate : 058 BPM P-R Int : 178 ms QRS Dur : 084 ms QT Int : 468 ms P-R-T Axes : -18 -09 003 degrees QTc Int : 459 ms Poor data quality, interpretation may be adversely affected Sinus bradycardia Otherwise normal ECG When compared with ECG of 23-MAR-2021 12:15, No significant change was found Confirmed by Benitez Zuñiga ([id number]) on 05/26/2022 2:17:59 PM Referred By: REFERRED SELF Confirmed By:Nathaniel Zuñiga
[2022-05-26] MEDS ORDERED: POLYETHYLENE (MIRALAX) 17 GM PACK PO PRN (16:57)
[2022-05-26] MEDS ORDERED: ONDANSETRON INJ 2 MG/ML 2 ML VIAL IV PRN (16:57)
[2022-05-26] MEDS ORDERED: PHARMACIST DISCHARGE MED REC CONSULT PRN (16:57)
[2022-05-26] MEDS ORDERED: oxyCODONE HCL IR 5 MG TAB (IMMEDIATE RELEASE) PO PRN (16:57)
[2022-05-26] MEDS ORDERED: ACETAMINOPHEN 325 MG TAB PO PRN (16:57)
[2022-05-26] MEDS ORDERED: SEVELAMER HCL 800 MG TABLET PO PRN (17:04)
[2022-05-26] MEDS: SEVELAMER HCL 800 MG TABLET PO SCH (18:04)
--- NOTE | 2022-05-26 18:11 | Nephrology Consultation ---
Date of Consultation May 26, 2022 Assessment & Plan (1) ESRD (end stage renal disease) on dialysis: Have modified his outpatient manual exchange prescription to 4 x 2.5 L exchanges over 8 hours with all 1.5% dextrose today. He tells me the cycler does not work due to drain challenges; unfortunately overnight we have few other options but to attempt the cycler. May need to roll patient at times during the night to help him drain; nurses aware and will communicate about this Avoid further IV contrast if possible in attempt to retain residual renal function; that said in life-threatening situations, IV contrast not contraindicated Avoid torsemide and other diuretics or ANGEL inhibitor or ARB for the next 48 hours at least in the setting of IV contrast administration in attempt to retain any residual renal function Daily basic metabolic panel Continue lactulose and with meals sevelamer Hemoglobin above threshold for needing intervention at this time (2) Acute right MCA stroke: Per primary service (3) Anemia of renal disease: History of Present Illness Reason for Consultation: ESRD on PD Requesting Physician: Dr Ennis Attending Physician: Carlie Ennis MD History of Present Illness 77 y/o M whom I am asked to see for ESRD on peritoneal dialysis was admitted today with an acute right middle cerebral artery stroke. Past medical history includes impaired fasting glucose, hypertension, hyperlipidemia, gout, prostate cancer, chronic back pain on narcotics. He fell at approximately 7:30 PM last evening and hit his head without loss of consciousness. The patient refused ER evaluation. This morning he noticed left-sided numbness and weakness in the arm and leg. He was also unable to walk. He came to the ER for evaluation where a stroke alert was called. Work- up revealed acute right MCA territory infarct. [facility] neurology evaluated the patient. He is beyond the timeframe for thrombolytics and right MCA occl usion is not amenable to intervention. Permissive hypertension is recommended at this time. He did have CT angiography to work-up the stroke. His is at bedside and tells me he has been on PD since February 2022. He normally does not use the cycler because "it does not work for me," presumably meaning that he has challenges with draining. They were able to do 1 exchange yesterday but have not had any dialysis today. He still makes urine daily but cannot tell me how much. He reports 1 episode of peritonitis to date attributed to constipation. He dialyzes under the care of Dr. Quan at [facility]. His last bowel movement was yesterday. Denies abdominal pain, nausea vomiting, diarrhea. He does believe he may have made less urine today than usual. No other new or worrisome voiding symptoms. Denies issues with swallowing. Denies cough or shortness of breath. Denies uncontrolled pain at this time. Ongoing left numbness and weakness. No edema. No fevers or chills. He has redness on the dorsi of bilateral hands which tells me is actually improved and attributes to antimicrobial cleansers for PD. Allergies Allergy/AdvReac Type Severity Reaction Status Date / Time No Known Allergies Allergy Verified 03/23/21 15:27 Home Medications Medication Instructions Recorded Confirmed Type allopurinol 100 mg tablet 200 mg PO DAILY 03/23/21 05/26/22 History carvedilol 3.125 mg tablet 3.125 mg PO BID 03/23/21 05/26/22 History latanoprost 0.005 % eye drops 1 drp OPB HS 03/23/21 05/26/22 History oxycodone 5 mg tablet 7.5 mg PO Q6H PRN Pain 03/23/21 05/26/22 History triamcinolone acetonide 0.1 % 1 applic topical DIRECTED PRN 03/23/21 05/26/22 History topical ointment Skin Irritation lactulose 10 gram/15 mL oral 30 ml PO DAILY 05/26/22 05/26/22 History solution sevelamer carbonate 800 mg tablet 800 mg PO TIDM 05/26/22 05/26/22 History torsemide 100 mg tablet 100 mg PO DAILY 05/26/22 05/26/22 History Patient History Medical History Anemia of renal disease ESRD (end stage renal disease) on dialysis Peritoneal dialysis Glaucoma Gout History of nephrolithiasis HLD (hyperlipidemia) HTN (hypertension) Lumbar stenosis with neurogenic claudication Pre-diabetes Spondylolisthesis of lumbar region Surgical History History of lumbar fusion Hx of cataract extraction Hx of colonoscopy Hx of prostatectomy robotic assisted retropubic 2013 Family History Mother , at 88 Stroke Father , in 60s Heart disease Social History Smoking Status: Never smoker Tobacco Type: Smokeless Tobacco (Dip or Chew) Second Hand Exposure: No; Do You Dip or Chew Tobacco: Yes; Tobacco Cessation Education Requested by Patient: No Hx Alcohol Use: No Hx Substance Use: No Preferred Language: [place] Communication Ability: Effective Tacking Machine Operator Required: No Beliefs That Will Affect Care: None marital status: Current Living Situation: Spouse Other Information That Helps Us Care for You: No Feels Safe at Home: Yes Safety Concerns: Feels Safe At This Time Assistive Devices: Cane Review of Systems Review of Systems: All systems reviewed & are unremarkable except as noted in HPI & below Physical Exam Constitutional: well developed, well nourished and average body habitus; no acute distress Eyes: EOM intact bilaterally ENMT: Ears: + external ear abnormality (Laceration) Nose: no external nose abnormality Mouth: + dry oral mucous membranes Neck: no nuchal rigidity Respiratory: normal respiratory effort Auscultation: + diminished lung sounds Cardiovascular: RRR, no murmur, no edema Gastrointestinal (Abdomen): Inspection/Auscultation: abdomen normal to inspec tion (Peritoneal dialysis catheter), normal bowel sounds and + scaphoid Percussion/Palpation: abdomen soft; abdomen nontender Musculoskeletal: Extremities: strength 5/5 throughout Skin: no rashes, warm and dry Trauma: + laceration (Left brow) Neurologic: diego, fluent speech, no tremor Psychiatric: Orientation: oriented x 3 Speech: normal rate/rhythm/volume of speech Mood: + irritable mood Results & Data Vital Signs (Past 12 Hours) Vital Signs Temp Pulse Pulse Resp BP BP Pulse Ox 05/26/22 17:11 05/26/22 17:11 62 05/26/22 17:00 36.4 C L 61 16 150/77 H 100 05/26/22 16:24 64 05/26/22 15:30 62 16 143/86 H 100 05/26/22 15:00 69 21 148/82 H 98 05/26/22 15:35 62 14 143/86 H 100 05/26/22 14:30 61 17 143/74 H 99 05/26/22 14:00 65 16 148/77 H 96 05/26/22 13:30 65 14 127/73 97 05/26/22 13:00 74 10 L 121/70 94 05/26/22 12:44 65 16 128/72 96 05/26/22 12:00 61 16 144/79 H 100 05/26/22 11:16 59 L 15 125/76 97 05/26/22 12:24 36.6 C 05/26/22 12:19 61 05/26/22 11:18 61 16 125/76 100 05/26/22 10:59 60 16 O2 Del Method 05/26/22 17:11 Room Air 05/26/22 17:11 05/26/22 17:00 Room Air 05/26/22 16:24 05/26/22 15:30 Room Air 05/26/22 15:00 Room Air 05/26/22 15:35 Room Air 05/26/22 14:30 Room Air 05/26/22 14:00 Room Air 05/26/22 13:30 Room Air 05/26/22 13:00 Room Air 05/26/22 12:44 Room Air 05/26/22 12:00 Room Air 05/26/22 11:16 Room Air 05/26/22 12:24 05/26/22 12:19 05/26/22 11:18 Room Air 05/26/22 10:59 Laboratory Results 05/26/22 11:10 05/26/22 11:10 Diagnostic Findings Imaging reviewed
[2022-05-26] MEDS: LATANOPROST 0.005% OP SOLN 2.5 ML BTL OPB SCH (21:19)
[2022-05-27 07:19] LABS: Basophils # (auto) 0.05 K/uL (0-0.2); Eosinophils # (auto) 0.31 K/uL (0-0.50); Eosinophils % (auto) 6.4 %; Hematocrit (blood only) 36.3 % (42.0-52.0); Hemoglobin 12.1 g/dl (14.0-18.0); Immature Granulocytes # (auto) 0.02 K/uL (0.01-0.20); Immature Granulocytes % (auto) 0.4 %; Lymphocytes # (auto) 1.06 K/uL (1.2-3.4); Lymphocytes % (auto) 21.8 %; Mean Corpuscular Hgb Conc 33.3 g/dL (32.0-36.0); Mean Corpuscular Volume 93.1 fL (80.0-100.0); Mean Platelet Volume 9.9 fL (9.4-12.4); Monocytes # (auto) 0.49 K/uL (0.11-0.59); Monocytes % (auto) 10.1 %; Neutrophils # (auto) 2.93 K/uL (1.40-6.50); Neutrophils % (auto) 60.3 %; Platelet Count 235 K/uL (130-400); RDW Coefficient of Variation 16.7 % (11.5-14.5); RDW Standard Deviation 56.2 fL (36.4-46.3); White Blood Count 4.86 K/ul (4.8-10.8)
[2022-05-27 08:03] LABS: BUN Creatinine Ratio 8.3 (10-20); Chol HDL Ratio 6.3 (0-5); Creatinine Clr Calc Pharmacy 9.4 ml/min; Est GFR (African American) 9.6 ml/min; Est GFR (Non-African American) 8.3 ml/min; Potassium 3.7 mmol/L (3.5-5.1)
[2022-05-27] MEDS: SEVELAMER HCL 800 MG TABLET PO SCH ×3 (08:18→17:29)
[2022-05-27] MEDS: allopurinoL 100 MG TAB PO SCH (08:18)
[2022-05-27] MEDS: ATORVASTATIN 40 MG TAB PO SCH (08:19)
[2022-05-27] MEDS: LACTULOSE SYRUP 20 GM/30 ML UDC PO SCH (08:19)
[2022-05-27] MEDS: CLOPIDOGREL BISULFATE 75 MG TAB PO SCH (08:19)
[2022-05-27] MEDS: ASPIRIN 81 MG ECTAB PO SCH (08:19)
[2022-05-27 08:30] LABS: Estimated Average Glucose 131 mg/dl; Hemoglobin A1C 6.2 % (4.5-5.6)
--- NOTE | 2022-05-27 10:48 | Magnetic Resonance Report ---
Brain MRI WITHOUT CONTRAST HISTORY: Left-sided weakness. Acute right MCA territory stroke. Headaches. Follow-up. TECHNIQUE: Multiplanar multisequence MRI of the brain was performed without the use of contrast. COMPARISON STUDY: Head CT 05/26/2022. FINDINGS: Patchy areas of restricted diffusion involving the right temporoparietal region which measu res an area of approximately 4.5 x 3.4 cm consistent with the patient's known distal right MCA territ ory infarct. This is similar to the prior CT examination. There is associated cytotoxic edema at the area of infarct. However, no significant mass effect or midline shift at this time. The midline struc tures appear intact. Prior bilateral lens replacement. The paranasal sinuses and mastoid air cells ar e clear. The major vascular flow-voids at the skull base are well-maintained. Mild atrophy and microv ascular ischemic changes are noted. No intracranial hemorrhage identified. IMPRESSION: 1. Confirmation of the distal right MCA territory infarct as described above. This is similar to the prior CT examination. 2. No intracranial hemorrhage or midline shift at this time. ACT 112: Negative or not required by law. Electronically signed by: Marito Mcgee M.D. 05/27/2022 10:46 AM
--- NOTE | 2022-05-27 14:23 | Neurology Consultation ---
Date of Consultation May 27, 2022 Assessment & Plan (1) Acute right MCA stroke: Impression: The patient had new onset of left-sided weakness and numbness which started the day before yesterday. The patient was not a candidate for intravenous or intra-arterial thrombolytic treatment. He was loaded with a spirin and Plavix as well as started on Lipitor, and was admitted to hospital for stroke work-up. Imaging studies was consistent with right distal middle cerebral artery territory ischemic stroke. The patient has been neurologically stable. Cardiac monitoring has been showing sinus rhythm. Plan/recommendations: We will keep the patient on double antiplatelet treatment for a month. Then, one of antiplatelet agent can be stopped. We will keep the patient on Lipitor 40 mg daily. Goal LDL level is lower than 70. Management of hypertension. There is no further indication of permissive hypertension. Goal blood pressure is below 130/80. Management of metabolic derangements including hyperglycemia. Physical therapy, and Occupational Therapy evaluations. Based on the evalua tion, the patient will need outpatient or inpatient rehabilitation. The patient will need follow-up at neurology clinic. I will contact with [facility] neurology, to set up an appointment. If the patient stays stable, then he can be discharged tomorrow. (2) ESRD (end stage renal disease) on dialysis: Impression: The patient has end-stage renal disease on peritoneal dialysis. (3) HLD (hyperlipidemia): Impression: The patient is started on Lipitor 40 mg at bedtime. Goal LDL level is lower than 70. (4) HTN (hypertension): Impression: The patient has history of hypertension on treatment. Recommendations: No further indication for permissive hypertension. Regular management of hypertension. (5) Aneurysm of left vertebral artery: Impression: Imaging studies showed incidental findings of a left vertebral artery fusiform dilatation, suggestive of aneurysm. Recommendations: We will keep the patient on antiplatelet and lipid-lowering treatment for now. Outpatient evaluation at vascular neurology clinic or interventional radiology for vertebral artery aneurysm. (6) Stenosis of right vertebral artery: Impression: Imaging studies showed right distal vertebral artery stenosis. There is no associated ischemic lesion. Recommendations: There is no indication for intervention. Conservative treatment on antiplatelet and lipid-lowering agents. Plan Thank you for the consultation. History of Present Illness Reason for Consultation: CVA Requesting Physician: Brandon manriquez MD Attending Physician: Brandon Manriquez MD History of Present Illness The patient is an 77-year-old right-handed gentleman, who presented to emergency department yesterday morning, because of left-sided weakness and numbness, which started the day before yesterday. Apparently, the patient fell down after his left leg gave up the day before yesterday evening which caused the left upper extremity bruises. The patient was initially seen by local emergency department, and based on their evaluation, there was no obvious neurological deficit, and he was discharged home. He decided to come to ED of [facility] yesterday morning due to worsening symptoms. His NIH stroke scale was 5 in ED, and stroke alert was activated. Tele stroke neurology was consulted and the patient was found not a candidate for intravenous thrombolytic treatment because of being outside of window. The patient was not a candidate for intra-arterial thrombectomy based on distal location of thrombus and low NIHSS. The patient was loaded with aspirin and Plavix, and was admitted to hospital for further stroke work-up. Since admission, cardiac monitoring has been showing sinus rhythm. He is started on Lipitor [address] was consistent with right MCA territory ischemic stroke. CT angiography of the head showed right middle cerebral artery distal branch occlusion. CT angiography has also showed left vertebral artery fusiform aneurysm, and right vertebral artery distal stenosis. Overall, the patient has been doing better today. He still has a left-sided heaviness, some sensory deficit, coordination difficulty, but he was able to stand up with walker. The patient denies having stroke symptoms in the past. He has been on peritoneal dialysis for end-stage renal disease. The patient has been compliant on treatment. I have reviewed the patient's chart including imaging studies and visualized them personally. I have discussed the case with the patient and family and answered their questions in detail. Allergies Allergy/AdvReac Type Severity Reaction Status Date / Time No Known Allergies Allergy Verified 03/23/21 15:27 Home Medications Medication Instructions Recorded Confirmed Type allopurinol 100 mg tablet 200 mg PO DAILY 03/23/21 05/26/22 History carvedilol 3.125 mg tablet 3.125 mg PO BID 03/23/21 05/26/22 History latanoprost 0.005 % eye drops 1 drp OPB HS 03/23/21 05/26/22 History oxycodone 5 mg tablet 7.5 mg PO Q6H PRN Pain 03/23/21 05/26/22 History triamcinolone acetonide 0.1 % 1 applic topical DIRECTED PRN 03/23/21 05/26/22 History topical ointment Skin Irritation lactulose 10 gram/15 mL oral 30 ml PO DAILY 05/26/22 05/26/22 History solution sevelamer carbonate 800 mg tablet 800 mg PO TIDM 05/26/22 05/26/22 History torsemide 100 mg tablet 100 mg PO DAILY 05/26/22 05/26/22 History Patient History Medical History Anemia of renal disease ESRD (end stage renal disease) on dialysis Peritoneal dialysis Glaucoma Gout History of nephrolithiasis HLD (hyperlipidemia) HTN (hypertension) Lumbar stenosis with neurogenic claudication Pre-diabetes Spondylolisthesis of lumbar region Surgical History History of lumbar fusion Hx of cataract extraction Hx of colonoscopy Hx of prostatectomy robotic assisted retropubic 2013 Family History Mother , at 88 Stroke Father , in 60s Heart disease Social History Smoking Status: Never smoker Tobacco Type: Smokeless Tobacco (Dip or Chew) Second Hand Exposure: No; Do You Dip or Chew Tobacco: Yes; Tobacco Cessation Education Requested by Patient: No Hx Alcohol Use: No Hx Substance Use: No Preferred Language: Frisian Communication Ability: Effective Dj Instructor Required: No Beliefs That Will Affect Care: None marital status: Current Living Situation: Spouse Other Information That Helps Us Care for You: No Feels Safe at Home: Yes Safety Concerns: Feels Safe At This Time Assistive Devices: Cane Review of Systems Review of Systems: All systems reviewed & are unremarkable except as noted in HPI & below Physical Exam Physical Exam: General Examination: Constitutional: Well developed person in no acute distress. HENT: Normal exam with inspection. CV: Hearth rhythm is regular. Neck: Supple, no carotid bruits. Lungs: Non-labored and comfortable breathing. Abdomen: Soft, non-tender, non-distended. Skin: No rash or ecchymosis. Left arm bruises. Extremities: No edema or cyanosis NEUROLOGICAL EXAMINATION: Mental Status: Alert and oriented to place, person and time. Cranial Nerves: II-XII are intact. No nystagmus. Funduscopy: Normal looking optic discs. Motor: 5/5 in right upper and lower extremities. Left arm strength is 4+ to 5- /5. Left foot dorsiflexion is 4-/5, left leg strength is 4+/5 overall. Tone: Normal without spasticity or rigidity. Sensory: Intact to all sensory modalities. Coordination: Dysmetria with left FTN and HTS testing. Speech: Fluent. Comprehension is intact. Gait: Not assessed Musculoskeletal: Normal muscle bulk, no atrophy. DTRs: 2+ in upper extremities and 1+ in lower extremities. Left Babinsky. Results & Data Vital Signs (Past 12 Hours) Vital Signs Temp Pulse Pulse Pulse Resp BP Pulse Ox 05/27/22 08:30 05/27/22 11:36 36.7 C 68 18 151/79 H 98 05/27/22 07:00 65 05/27/22 07:40 36.9 C 70 16 05/27/22 07:28 36.9 C 70 16 161/92 H 98 05/27/22 03:11 36.4 C L 66 16 143/79 H 97 O2 Del Method 05/27/22 08:30 Room Air 05/27/22 11:36 Room Air 05/27/22 07:00 05/27/22 07:40 05/27/22 07:28 Room Air 05/27/22 03:11 Room Air Laboratory Results Laboratory Results - last 24 hr 05/27/22 05/27/22 05/27/22 05:30 05:30 05:30 WBC 4.86 RBC 3.90 L Hgb 12.1 L Hct 36.3 L MCV 93.1 MCH 31.0 MCHC 33.3 RDW Std Deviation 56.2 H RDW Coeff of Bayron 16.7 H Plt Count 235 MPV 9.9 Immature Gran % (Auto) 0.4 Neut % (Auto) 60.3 Lymph % (Auto) 21.8 Roberts % (Auto) 10.1 Eos % (Auto) 6.4 Baso % (Auto) 1.0 Neut # (Auto) 2.93 Lymph # (Auto) 1.06 L Roberts # (Auto) 0.49 Eos # (Auto) 0.31 Baso # (Auto) 0.05 Immature Gran # (Auto) 0.02 Sodium 135 L Potassium 3.7 Chloride 97 L Carbon Dioxide 27 Anion Gap 11 BUN 50 H Creatinine 6.03 H* D Est Cr Clr Drug Dosing 9.4 Est GFR ( Amer) 9.6 Est GFR (Non-Af Amer) 8.3 BUN/Creatinine Ratio 8.3 L Glucose 87 Estimat Average Glucose 131 Hemoglobin A1c 6.2 H Calcium 9.0 Triglycerides 265 H Cholesterol 164 LDL Cholesterol, Calc 85 VLDL Cholesterol, Calc 53 H HDL Cholesterol 26 Cholesterol/HDL Ratio 6.3 H Diagnostic Findings Head CT 05/26/22 11:[address] DOSE: HISTORY: Left-sided paresthesias. Recent head injury. neuro deficit, acute stroke suspected TECHNIQUE: Multiaxial CT images of the head were performed without the use of intravenous contrast. Automated exposure control was utilized for this study. A dose lowering technique was utilized adhering to the principles of ALARA. Comparison: None. Findings: The paranasal sinuses and mastoid air cells are clear. There is a 2.5 cm lucent lesion within the high convexity right parietal bone. This favors a benign lesion such as a hemangioma. Otherwise, the calvarium and skull base are intact. The ventricles and sulci which remain mild age-related involutional changes. There is no hematoma, midline shift, intracranial mass identified. Within the right posterior sylvian fissure on image 16 there is a punctate hyperdense focus suspicious for thrombus within a branch of the distal right MCA. Distal to this area there is a focal hypodensity within the right parietal lobe likely corresponding to an acute distal MCA territory infarct. This is best seen on image 19. Impression: Within the right posterior sylvian fissure there is a punctate hyperdense focus suspicious for thrombus within a branch of the distal right MCA. Distal to this area there is a focal hypodensity within the right parietal lobe likely corresponding to an acute distal MCA territory infarct. ACT 112: Negative or not required by law. Electronically signed by: Marito Mcgee M.D. 05/26/2022 11:[address] 05/26/22 11:18 CT cervical spine wo con CLINICAL HISTORY: fall TECHNIQUE: Multidetector row helical CT of the cervical spine was performed without administration of intravenous contrast. Coronal and sagittal reformations were obtained. Automated dose lowering techniques and/or adjustment according to patient size were utilized for this exam. Comparison: None available at the time of this dictation. FINDINGS: No acute fractures or subluxations are identified. Degenerative changes are seen in the visualized spine. The alignment is normal. Soft tissues are unremarkable. IMPRESSION: Degenerative changes without evidence of acute bony injury. ACT 112: Negative or not required by law. Electronically signed by: Ren Thompson M.D. 05/26/2022 11:37 AM Head CTA 05/26/22 12:13 HEAD CTA HISTORY: Left-sided paresthesias. Abnormal head CT. cva, eval for large vessel occlusion TECHNIQUE: Multiaxial CT images of the head were performed both before and after the intravenous administration of contrast to evaluate the major cerebral vessels. Maximum intensity projection images were also obtained. A dose lowering technique was utilized adhering to the principles of ALARA. COMPARISON: None. FINDINGS: Small area of hypodensity within the right parietal lobe again noted consistent with an acute infarct. There is a small distal branch of the right MCA within the distal sylvian fissure best seen on images 169 through 179 which is severely attenuated consistent with the area of thrombus seen on the prior study. This accounts for the acute right MCA territory infarct. Otherwise, the b ilateral ACAs, bilateral sheet metal shop foreman, and left MCA show no significant stenosis, occlusion, or aneurysm. Mild calcified plaque within the bilateral carotid siphons without significant stenosis or occlusion. A basilar artery and left vertebral artery widely patent. 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 The distal right vertebral artery is severely hypoplastic and not well visualized. The major dural venous sinuses are patent. IMPRESSION: 1. Small area of hypodensity within the right parietal lobe again noted consistent with an acute infarct. 2. There is a small distal branch of the right MCA within the distal sylvian fissure which is severely attenuated consistent with the area of thrombus seen on the prior study. This accounts for the acute right MCA territory infarct. 3. 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 4. Severely hypoplastic distal right vertebral artery which is not well visualized. ACT 112: Negative or not required by law. Electronically signed by: Marito Mcgee M.D. 05/26/2022 1:09 PM Neck CTA 05/26/22 12:13 CT ANGIOGRAPHY OF THE NECK WITH CONTRAST CLINICAL HISTORY: Neuro deficit. Possible stroke. Evaluate for large vessel occlusion. COMPARISON STUDY: No previous studies for comparison. Technique: CT angiography of the carotid and vertebral arteries was obtained using [employer] and 3D reconstruction on an independent workstation. NASCET criteria was utilized. Automated exposure control was utilized for the study. A dose lowering technique was utilized adhering to the principles of ALARA. CT DOSE: 509.50 mGy.cm Findings: Visualized portions of the lung apices are unremarkable. There is no cervical lymphadenopathy. There is moderate plaque within the proximal left internal carotid artery without stenosis. The left common carotid and cervical internal carotid arteries are patent. There is moderate plaque of the left subclavian artery without stenosis. The left vertebral artery is dominant and patent. The right vertebral artery is diminutive and ends in PICA. There is no stenosis within the right common carotid artery. Moderate plaque within this vessel is noted. There is extensive plaque within the proximal right internal carotid artery. Vessel narrowing is difficult to measure on the axial images however there is approximate 40-50% stenosis of the proximal right internal carotid artery. No additional stenoses are identified. IMPRESSION: 1. Extensive plaque within the proximal right internal carotid artery with approximate 40-50% stenosis. 2. Moderate plaque within the left internal carotid artery without stenosis. 3. Dominant, patent left carotid artery. Diminutive right vertebral artery, on a congenital basis. ACT 112: Negative or not required by law. Electronically signed by: Junito Kim M.D. 05/26/2022 1:06 PM Brain MRI 05/27/22 09:01 Brain MRI WITHOUT CONTRAST HISTORY: Left-sided weakness. Acute right MCA territory stroke. Headaches. Follow-up. TECHNIQUE: Multiplanar multisequence MRI of the brain was performed without the use of contrast. COMPARISON STUDY: Head CT 05/26/2022. FINDINGS: Patchy areas of restricted diffusion involving the right temporoparietal region which measures an area of approximately 4.5 x 3.4 cm consistent with the patient's known distal right MCA territory infarct. This is similar to the prior CT examination. There is associated cytotoxic edema at the area of infarct. However, no significant mass effect or midline shift at this time. The midline structures appear intact. Prior bilateral lens replacement. The paranasal sinuses and mastoid air cells are clear. The major vascular flow- voids at the skull base are well-maintained. Mild atrophy and microvascular ischemic changes are noted. No intracranial hemorrhage identified. IMPRESSION: 1. Confirmation of the distal right MCA territory infarct as described above. This is similar to the prior CT examination. 2. No intracranial hemorrhage or midline shift at this time. ACT 112: Negative or not required by law. Electronically signed by: Marito Mcgee M.D. 05/27/2022 10:46 AM ECHO--normal left ventricular chamber size and wall thickness, normal left ventricular systolic function, no patent foramen ovale, no obvious intracardiac embolic source.
--- NOTE | 2022-05-27 14:58 | Hospitalist Progress Note ---
Date of Service May 27, 2022 Assessment & Plan (1) Acute right MCA stroke: (2) Cerebral infarction due to occlusion of right middle cerebral artery: (3) Acute left-sided weakness: (4) ESRD (end stage renal disease) on dialysis: (5) HTN (hypertension): (6) Pre-diabetes: Plan Patient is a 77 yr male with H/O End-stage renal disease on dialysis, DM II, HTN, HLD, gout, anemia of renal disease, glaucoma, history of prostate cancer who presents to ED secondary to left-sided numbness and weakness. 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 There is a small distal branch of the right MCA within the distal sylvian fissure which is severely attenuated consistent with the area of thrombus seen on the prior study. This accounts for the acute right MCA territory infarct. 3. 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 4. Severely hypoplastic dis juan miguel right vertebral artery which is not well visualized. --Head CT: Within the right posterior sylvian fissure there is a punctate hyperdense focus suspicious for thrombus within a branch of the distal right MCA. Distal to this area there is a focal hypodensity within the right parietal lobe likely corresponding to an acute distal MCA territory infarct. --Brain MRI:Confirmation of the distal right MCA territory infarct as described above. This is similar to the prior CT examination. No intracranial hemorrhage or midline shift at this time. --Neck CTA:Extensive plaque within the proximal right internal carotid artery with approximate 40-50% stenosis. Moderate plaque within the left internal carotid artery without stenosis. Dominant, patent left carotid artery. Diminut rosario right vertebral artery, on a congenital basis. --ECHO: EF 55 to 60%. Grade 2 diastolic dysfunction. Calcified mitral apparatus causing mitral stenosis. Moderate mitral regurgitation. Mild mitral stenosis. Interatrial septum is intact with no evidence of ASD. No interatrial shunt. Continue aspirin, Plavix, Lipitor PT OT, speech eval Appreciate neurology input Needs rehab placement Prediabetes HbA1c 6.2 ESRD on Dialysis Appreciate Nephrology Input HTN allow for permissive HTN BP slightly elevated Resume home medications as able Gout continue allopurinol DVT Px: SCDs for now Code Status FULL CODE Admission and Anticipated Discharge Date Admission Date: May 26, 2022 Subjective Patient is seen and examined at bedside States having right arm, left leg weakness Denies any chest pain, shortness of breath, dizziness, nausea, abdominal pain Eager to get discharged Discussed with patient's at bedside No other complaints Review of Systems Review of Systems: All systems reviewed & are unremarkable except as noted in Subjective Physical Exam Physical Exam: Physical Exam: Vitals signs as noted above General Appearance:Moderately built and nourished, no apparent distress Head: normocephalic, Atraumatic Eyes: normal inspection, EOMI Neck: supple, Trachea midline Respiratory/Chest: Normal breath sounds, CTA, No accessory muscle use Cardiovascular: S1, S2, + murmur Abdomen/GI:Soft, Non tender, Bowel sounds present Extremities/Musculoskeletal:normal inspection, no edema Neurologic/Psych:AAOX3, grossly no focal motor deficits, Mild hearing impairment Skin: normal color, warm Results & Data Results & Data Vital Signs (Past 12 Hours) Vital Signs Temp Pulse Pulse Pulse Resp BP Pulse Ox 05/27/22 08:30 05/27/22 11:36 36.7 C 68 18 151/79 H 98 05/27/22 07:00 65 05/27/22 07:40 36.9 C 70 16 05/27/22 07:28 36.9 C 70 16 161/92 H 98 05/27/22 03:11 36.4 C L 66 16 143/79 H 97 O2 Del Method 05/27/22 08:30 Room Air 05/27/22 11:36 Room Air 05/27/22 07:00 05/27/22 07:40 05/27/22 07:28 Room Air 05/27/22 03:11 Room Air Laboratory Results Short CBC 05/27/22 Range/Units 05:30 WBC 4.86 (4.8-10.8) K/ul Hgb 12.1 L (14.0-18.0) g/dl Hct 36.3 L (42.0-52.0) % Plt Count 235 (130-400) K/uL BMP 05/27/22 05:30 Sodium 135 L Potassium 3.7 Chloride 97 L Carbon Dioxide 27 BUN 50 H Creatinine 6.03 H* D Glucose 87 Calcium 9.0
--- NOTE | 2022-05-27 17:33 | Nephrology Progress Note ---
Date of Service May 27, 2022 Assessment & Plan (1) ESRD (end stage renal disease) on dialysis: Plan: Have modified his outpatient manual exchange prescription to 4 x 2.5 L exchanges over 10 hours with 2 at 1.5% and 2 at 2.5% given neuro comments about ending permissive HTN He stated at admission that the cycler does not work due to drain challenges; but he ran w/ 2 alarms on day of admission. May need to roll patient at times during the night to help him drain. Avoid further IV contrast if possible in attempt to retain residual renal function; that said in life-threatening situations, IV contrast not contraindicated Avoid torsemide and other diuretics or ANGEL inhibitor or ARB for the next 24 hours at least in the setting of IV contrast administration in attempt to retain any residual renal function Daily basic metabolic panel Continue lactulose and with meals sevelamer Hemoglobin above threshold for needing intervention at this time (2) Acute right MCA stroke: Plan: Per primary service and neuro Admission and Anticipated Discharge Date Admission Date: May 26, 2022 Subjective ambulated in bang today w/ walker and 2 person assist; no BM; no sob, no edema, no n/v; refusing to use bedside commode he states Review of Systems Review of Systems: All systems reviewed & are unremarkable except as noted in Subjective Physical Exam Constitutional: well developed, well nourished and average body habitus; no acute distress Eyes: EOM intact bilaterally ENMT: Ears: + external ear abnormality (Laceration) Nose: no external nose abnormality Mouth: + dry oral mucous membranes Neck: no nuchal rigidity Respiratory: normal respiratory effort Auscultation: + diminished lung sounds Cardiovascular: RRR, no murmur, no edema Gastrointestinal (Abdomen): Inspection/Auscultation: abdomen normal to inspection (Peritoneal dialysis catheter), normal bowel sounds and + scaphoid Percussion/Palpation: abdomen soft; abdomen nontender Musculoskeletal: Extremities: strength 5/5 throughout Skin: no rashes, warm and dry Trauma: + laceration (Left brow) Psychiatric: Orientation: oriented x 3 Speech: normal rate/rhythm/volume of speech Mood: + irritable mood Results & Data Vital Signs (Past 12 Hours) Vital Signs Temp Pulse Pulse Pulse Resp BP Pulse Ox 05/27/22 16:00 75 05/27/22 16:10 36.8 C 78 17 142/80 H 97 05/27/22 08:30 05/27/22 11:36 36.7 C 68 18 151/79 H 98 05/27/22 07:00 65 05/27/22 07:40 36.9 C 70 16 05/27/22 07:28 36.9 C 70 16 161/92 H 98 O2 Del Method 05/27/22 16:00 05/27/22 16:10 Room Air 05/27/22 08:30 Room Air 05/27/22 11:36 Room Air 05/27/22 07:00 05/27/22 07:40 05/27/22 07:28 Room Air Laboratory Results 05/27/22 05:30 05/27/22 05:30
[2022-05-27] MEDS: LATANOPROST 0.005% OP SOLN 2.5 ML BTL OPB SCH (20:40)
[2022-05-28 07:45] LABS: Basophils # (auto) 0.04 K/uL (0-0.2); Basophils % (auto) 0.9 %; Eosinophils # (auto) 0.34 K/uL (0-0.50); Eosinophils % (auto) 7.3 %; Hematocrit (blood only) 35.4 % (42.0-52.0); Hemoglobin 11.9 g/dl (14.0-18.0); Immature Granulocytes # (auto) 0.01 K/uL (0.01-0.20); Immature Granulocytes % (auto) 0.2 %; Lymphocytes # (auto) 1.02 K/uL (1.2-3.4); Mean Corpuscular Hgb Conc 33.6 g/dL (32.0-36.0); Mean Corpuscular Volume 92.2 fL (80.0-100.0); Mean Platelet Volume 9.8 fL (9.4-12.4); Monocytes # (auto) 0.46 K/uL (0.11-0.59); Monocytes % (auto) 9.9 %; Neutrophils # (auto) 2.76 K/uL (1.40-6.50); Neutrophils % (auto) 59.7 %; Platelet Count 227 K/uL (130-400); RDW Coefficient of Variation 16.3 % (11.5-14.5); RDW Standard Deviation 55.5 fL (36.4-46.3); Red Blood Count 3.84 M/uL (4.70-6.10); White Blood Count 4.63 K/ul (4.8-10.8)
[2022-05-28] MEDS: allopurinoL 100 MG TAB PO SCH (08:02)
[2022-05-28] MEDS: SEVELAMER HCL 800 MG TABLET PO SCH ×3 (08:02→16:53)
[2022-05-28] MEDS: LACTULOSE SYRUP 20 GM/30 ML UDC PO SCH (08:02)
[2022-05-28] MEDS: ASPIRIN 81 MG ECTAB PO SCH (08:02)
[2022-05-28] MEDS: ATORVASTATIN 40 MG TAB PO SCH (08:02)
[2022-05-28] MEDS: CLOPIDOGREL BISULFATE 75 MG TAB PO SCH (08:02)
[2022-05-28 08:41] LABS: BUN Creatinine Ratio 7.3 (10-20); Calcium 8.9 mg/dl (8.6-10.3); Creatinine Clr Calc Pharmacy 8.8 ml/min; Est GFR (African American) 8.9 ml/min; Est GFR (Non-African American) 7.6 ml/min; Potassium 3.6 mmol/L (3.5-5.1)
[2022-05-28] MEDS: carvediloL 3.125 MG TAB PO SCH ×2 (11:21→21:53)
--- NOTE | 2022-05-28 16:14 | Neurology Progress Note ---
Date of Service May 28, 2022 Assessment & Plan (1) Acute right MCA stroke: Plan: Impression: The patient had new onset of left-sided weakness and numbness. The patient was not a candidate for intravenous or intra-arterial thrombolytic treatment. He was loaded with aspirin and Plavix as well as started on Lipitor, and was admitted to hospital for stroke work-up. Imaging studies was consistent with right distal middle cerebral artery territory ischemic stroke. The patient has been neurologically stable. Cardiac monitoring has been showing sinus rhythm. Plan/recommendations: We will keep the patient on double antiplatelet treatment for a month. Then, one of antiplatelet agent can be stopped. We will keep the patient on Lipitor 40 mg daily. Goal LDL level is lower than 70. Management of hypertension. There is no further indication of permissive hypertension. Goal blood pressure is below 130/80. Management of metabolic derangements including hyperglycemia. Physical therapy, and Occupational Therapy evaluations. Based on the e valuation, the patient will need outpatient or inpatient rehabilitation. The patient will need follow-up at neurology clinic. I have contacted with [facility] neurology, to set up an appointment. Will sign off. (2) ESRD (end stage renal disease) on dialysis: Plan: Impression: The patient has end-stage renal disease on peritoneal dialysis. (3) HLD (hyperlipidemia): Plan: Impression: The patient is started on Lipitor 40 mg at bedtime. Goal LDL level is lower than 70. (4) HTN (hypertension): Plan: Impression: The patient has history of hypertension on treatment. Recommendations: No further indication for permissive hypertension. Regular management of hypertension. (5) Aneurysm of left vertebral artery: Plan: Impression: Imaging studies showed incidental findings of a left vertebral artery fusiform dilatation, suggestive of aneurysm. Recommendations: We will keep the patient on antiplatelet and lipid-lowering treatment for now. Outpatient evaluation at vascular neurology clinic or interventional radiology for vertebral artery aneurysm. (6) Stenosis of right vertebral artery: Plan: Impression: Imaging studies showed right distal vertebral artery stenosis. There is no associated ischemic lesion. Recommendations: There is no indication for intervention. Conservative treatment on antiplatelet and lipid-lowering agents. Plan As seen above. Admission and Anticipated Discharge Date Admission Date: May 26, 2022 Subjective The patient denies any new neurological symptoms. His left sided weakness, and coordination difficulty has been improving. He was able to ambulate with walker today. He eats well. No swallowing difficulty. Review of Systems Review of Systems: All systems reviewed & are unremarkable except as noted in Subjective Physical Exam Physical Exam: General Examination: Constitutional: Well developed person in no acute distress. HENT: Normal exam with inspection. CV: Hearth rhythm is regular. Neck: Supple, no carotid bruits. Lungs: Non-labored and comfortable breathing. Abdomen: Soft, non-tender, non-distended. Skin: No rash or ecchymosis. Left arm bruises. Extremities: No edema or cyanosis NEUROLOGICAL EXAMINATION: Mental Status: Alert and oriented to place, person and time. Cranial Nerves: II-XII are intact. No nystagmus. Funduscopy: Normal looking optic discs. Motor: 5/5 in right upper and lower extremities. Left arm strength is 5-/5. Left foot dorsiflexion is 4-/5, left leg strength is 4+ to 5-/5 overall. Tone: Normal without spasticity or rigidity. Sensory: Intact to all sensory modalities. Coordination: Dysmetria with left FTN and HTS testing which has been better since yesterday Speech: Fluent. Comprehension is intact. Gait: Not assessed Musculoskeletal: Normal muscle bulk, no atrophy. DTRs: 2+ in upper extremities and 1+ in lower extremities. Left Babinsky. Results & Data Vital Signs (Past 12 Hours) Vital Signs Temp Pulse Pulse Pulse Resp BP Pulse Ox 05/28/22 15:47 107 H 05/28/22 15:29 37.0 C 104 H 18 114/79 96 05/28/22 11:53 36.7 C 109 H 19 98/70 L 97 05/28/22 08:00 36.6 C 67 18 05/28/22 07:00 84 05/28/22 07:52 36.6 C 67 18 140/76 96 O2 Del Method 05/28/22 15:47 05/28/22 15:29 Room Air 05/28/22 11:53 Room Air 05/28/22 08:00 05/28/22 07:00 05/28/22 07:52 Room Air Laboratory Results Laboratory Results - last 24 hr 05/28/22 05/28/22 06:56 06:56 WBC 4.63 L RBC 3.84 L Hgb 11.9 L Hct 35.4 L MCV 92.2 MCH 31.0 MCHC 33.6 RDW Std Deviation 55.5 H RDW Coeff of Bayron 16.3 H Plt Count 227 MPV 9.8 Immature Gran % (Auto) 0.2 Neut % (Auto) 59.7 Lymph % (Auto) 22.0 Twiggs % (Auto) 9.9 Eos % (Auto) 7.3 Baso % (Auto) 0.9 Neut # (Auto) 2.76 Lymph # (Auto) 1.02 L Twiggs # (Auto) 0.46 Eos # (Auto) 0.34 Baso # (Auto) 0.04 Immature Gran # (Auto) 0.01 Sodium 135 L Potassium 3.6 Chloride 97 L Carbon Dioxide 27 Anion Gap 11 BUN 47 H Creatinine 6.45 H* D Est Cr Clr Drug Dosing 8.8 Est GFR ( Amer) 8.9 Est GFR (Non-Af Amer) 7.6 BUN/Creatinine Ratio 7.3 L Glucose 104 H Calcium 8.[address] 05/26/22 11:[address] DOSE: HISTORY: Left-sided paresthesias. Recent head injury. neuro deficit, acute stroke suspected TECHNIQUE: Multiaxial CT images of the head were performed without the use of intravenous contrast. Automated exposure control was utilized for this study. A dose lowering technique was utilized adhering to the principles of ALARA. Comparison: None. Findings: The paranasal sinuses and mastoid air cells are clear. There is a 2.5 cm lucent lesion within the high convexity right parietal bone. This favors a benign lesion such as a hemangioma. Otherwise, the calvarium and skull base are intact. The ventricles and sulci which remain mild age-related involutional changes. There is no hematoma, midline shift, intracranial mass identified. Within the right posterior sylvian fissure on image 16 there is a punctate hyperdense focus suspicious for thrombus within a branch of the distal right MCA. Distal to this area there is a focal hypodensity within the right parietal lobe likely corresponding to an acute distal MCA territory infarct. This is best seen on image 19. Impression: Within the right posterior sylvian fissure there is a punctate hyperdense focus suspicious for thrombus within a branch of the distal right MCA. Distal to this area there is a focal hypodensity within the right parietal lobe likely corresponding to an acute distal MCA territory infarct. ACT 112: Negative or not required by law. Electronically signed by: Marito Mcgee M.D. 05/26/2022 11:[address] 05/26/22 11:18 CT cervical spine wo con CLINICAL HISTORY: fall TECHNIQUE: Multidetector row helical CT of the cervical spine was performed without administration of intravenous contrast. Coronal and sagittal reformations were obtained. Automated dose lowering techniques and/or adjustment according to patient size were utilized for this exam. Comparison: None available at the time of this dictation. FINDINGS: No acute fractures or subluxations are identified. Degenerative changes are seen in the visualized spine. The alignment is normal. Soft tissues are unremarkable. IMPRESSION: Degenerative changes without evidence of acute bony injury. ACT 112: Negative or not required by law. Electronically signed by: Ren Thompson M.D. 05/26/2022 11:37 AM Head CTA 05/26/22 12:13 HEAD CTA HISTORY: Left-sided paresthesias. Abnormal head CT. cva, eval for large vessel occlusion TECHNIQUE: Multiaxial CT images of the head were performed both before and after the intravenous administration of contrast to evaluate the major cerebral vessels. Maximum intensity projection images were also obtained. A dose lowering technique was utilized adhering to the principles of ALARA. COMPARISON: None. FINDINGS: Small area of hypodensity within the right parietal lobe again noted consistent with an acute infarct. There is a small distal branch of the right MCA within the distal sylvian fissure best seen on images 169 through 179 which is severely attenuated consistent with the area of thrombus seen on the prior study. This accounts for the acute right MCA territory infarct. Otherwise, the bilateral ACAs, bilateral supervisor wood room, and left MCA show no significant stenosis, occlusion, or aneurysm. Mild calcified plaque within the bilateral carotid siphons without significant stenosis or occlusion. A basilar artery and left vertebral artery widely patent. 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 The distal right vertebral artery is severely hypoplastic and not well visualized. The major dural venous sinuses are patent. IMPRESSION: 1. Small area of hypodensity within the right parietal lobe again noted consistent with an acute infarct. 2. There is a small distal branch of the right MCA within the distal sylvian fissure which is severely attenuated consistent with the area of thrombus seen on the prior study. This accounts for the acute right MCA territory infarct. 3. 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 4. Severely hypoplastic distal right vertebral artery which is not well visualized. ACT 112: Negative or not required by law. Electronically signed by: Marito Mcgee M.D. 05/26/2022 1:09 PM Neck CTA 05/26/22 12:13 CT ANGIOGRAPHY OF THE NECK WITH CONTRAST CLINICAL HISTORY: Neuro deficit. Possible stroke. Evaluate for large vessel occlusion. COMPARISON STUDY: No previous studies for comparison. Technique: CT angiography of the carotid and vertebral arteries was obtained using Optiray and 3D reconstruction on an independent workstation. NASCET criteria was utilized. Automated exposure control was utilized for the study. A dose lowering technique was utilized adhering to the principles of ALARA. CT DOSE: 509.50 mGy.cm Findings: Visualized portions of the lung apices are unremarkable. There is no cervical lymphadenopathy. There is moderate plaque within the proximal left internal carotid artery without stenosis. The left common carotid and cervical internal carotid arteries are patent. There is moderate plaque of the left subcl michael artery without stenosis. The left vertebral artery is dominant and patent. The right vertebral artery is diminutive and ends in PICA. There is no stenosis within the right common carotid artery. Moderate plaque within this vessel is noted. There is extensive plaque within the proximal right internal carotid artery. Vessel narrowing is difficult to measure on the axial images however there is approximate 40-50% stenosis of the proximal right internal carotid artery. No additional stenoses are identified. IMPRESSION: 1. Extensive plaque within the proximal right internal carotid artery with approximate 40-50% stenosis. 2. Moderate plaque within the left internal carotid artery without stenosis. 3. Dominant, patent left carotid artery. Diminutive right vertebral artery, on a congenital basis. ACT 112: Negative or not required by law. Electronically signed by: Junito Kim M.D. 05/26/2022 1:06 PM Brain MRI 05/27/22 09:01 Brain MRI WITHOUT CONTRAST HISTORY: Left-sided weakness. Acute right MCA territory stroke. Headaches. Follow-up. TECHNIQUE: Multiplanar multisequence MRI of the brain was performed without the use of contrast. COMPARISON STUDY: Head CT 05/26/2022. FINDINGS: Patchy areas of restricted diffusion involving the right temporoparietal region which measures an area of approximately 4.5 x 3.4 cm consistent with the patient's known distal right MCA territory infarct. This is similar to the prior CT examination. There is associated cytotoxic edema at the area of infarct. However, no significant mass effect or midline shift at this time. The midline structures appear intact. Prior bilateral lens replacement. The paranasal sinuses and mastoid air cells are clear. The major vascular flow- voids at the skull base are well-maintained. Mild atrophy and microvascular ischemic changes are noted. No intracranial hemorrhage identified. IMPRESSION: 1. Confirmation of the distal right MCA territory infarct as described above. This is similar to the prior CT examination. 2. No intracranial hemorrhage or midline shift at this time. ACT 112: Negative or not required by law. Electronically signed by: Marito Mcgee M.D. 05/27/2022 10:46 AM
--- NOTE | 2022-05-28 16:54 | Hospitalist Progress Note ---
Date of Service May 28, 2022 Assessment & Plan (1) Acute right MCA stroke: (2) Cerebral infarction due to occlusion of right middle cerebral artery: (3) Acute left-sided weakness: (4) ESRD (end stage renal disease) on dialysis: (5) HTN (hypertension): (6) Pre-diabetes: Plan Patient is a 77 yr male with H/O End-stage renal disease on dialysis, DM II, HTN, HLD, gout, anemia of renal disease, glaucoma, history of prostate cancer who presents to ED secondary to left-sided numbness and weakness. 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 There is a small distal branch of the right MCA within the distal sylvian fissure which is severely attenuated consistent with the area of thrombus seen on the prior study. This accounts for the acute right MCA territory infarct. 3. 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 4. Severely hypoplastic dis juan miguel right vertebral artery which is not well visualized. --Head CT: Within the right posterior sylvian fissure there is a punctate hyperdense focus suspicious for thrombus within a branch of the distal right MCA. Distal to this area there is a focal hypodensity within the right parietal lobe likely corresponding to an acute distal MCA territory infarct. --Brain MRI:Confirmation of the distal right MCA territory infarct as described above. This is similar to the prior CT examination. No intracranial hemorrhage or midline shift at this time. --Neck CTA:Extensive plaque within the proximal right internal carotid artery with approximate 40-50% stenosis. Moderate plaque within the left internal carotid artery without stenosis. Dominant, patent left carotid artery. Diminut rosario right vertebral artery, on a congenital basis. --ECHO: EF 55 to 60%. Grade 2 diastolic dysfunction. Calcified mitral apparatus causing mitral stenosis. Moderate mitral regurgitation. Mild mitral stenosis. Interatrial septum is intact with no evidence of ASD. No interatrial shunt. Continue aspirin, Plavix, Lipitor PT OT, speech eval Appreciate neurology input Waiting for rehab placement Needs follow-up with neurology upon discharge Prediabetes HbA1c 6.2 ESRD on Dialysis Appreciate Nephrology Input HTN Continue Coreg Gout continue allopurinol DVT Px: SCDs for now Code Status FULL CODE Disposition Rehab as able Admission and Anticipated Discharge Date Admission Date: May 26, 2022 Subjective Patient is seen and examined at bedside Left sided weakness improving No new complaints Denies any chest pain, shortness of breath, dizziness, nausea, abdominal pain Rehab as able Review of Systems Review of Systems: All systems reviewed & are unremarkable except as noted in Subjective Physical Exam Physical Exam: Physical Exam: Vitals signs as noted above General Appearance:Moderately built and nourished, no apparent distress Head: normocephalic, Atraumatic Eyes: normal inspection, EOMI Neck: supple, Trachea midline Respiratory/Chest: Normal breath sounds, CTA, No accessory muscle use Cardiovascular: S1, S2, + murmur Abdomen/GI:Soft, Non tender, Bowel sounds present Extremities/Musculoskeletal:normal inspection, no edema Neurologic/Psych:AAOX3, Left leg mild weakness when compared to Right Skin: normal color, warm Results & Data Results & Data Vital Signs (Past 12 Hours) Vital Signs Temp Pulse Pulse Pulse Resp BP Pulse Ox 05/28/22 15:47 107 H 05/28/22 15:29 37.0 C 104 H 18 114/79 96 05/28/22 11:53 36.7 C 109 H 19 98/70 L 97 05/28/22 08:00 36.6 C 67 18 05/28/22 07:00 84 05/28/22 07:52 36.6 C 67 18 140/76 96 O2 Del Method 05/28/22 15:47 05/28/22 15:29 Room Air 05/28/22 11:53 Room Air 05/28/22 08:00 05/28/22 07:00 05/28/22 07:52 Room Air Laboratory Results Short CBC 05/28/22 Range/Units 06:56 WBC 4.63 L (4.8-10.8) K/ul Hgb 11.9 L (14.0-18.0) g/dl Hct 35.4 L (42.0-52.0) % Plt Count 227 (130-400) K/uL BMP 05/28/22 06:56 Sodium 135 L Potassium 3.6 Chloride 97 L Carbon Dioxide 27 BUN 47 H Creatinine 6.45 H* D Glucose 104 H Calcium 8.9
--- NOTE | 2022-05-28 18:50 | Nephrology Progress Note ---
Date of Service May 28, 2022 Assessment & Plan (1) ESRD (end stage renal disease) on dialysis: Plan: Have modified his outpatient manual exchange prescription to 4 x 2.5 L exchanges over 10 hours with 2 at 1.5% and 2 at 2.5% given neuro comments about ending permissive HTN He stated at admission that the cycler does not work due to drain challenges; but he ran w/ 2 alarms on day of admission. May need to roll patient at times during the night to help him drain. Avoid further IV contrast if possible in attempt to retain residual renal function; that said in life-threatening situations, IV contrast not contraindicated Avoid torsemide and other diuretics or ANGEL inhibitor or ARB for the next 24 hours at least in the setting of IV contrast administration in attempt to retain any residual renal function Daily basic metabolic panel Continue lactulose and with meals sevelamer > lactulose frequency increased to tid w/ hold parameter, cont miralax prn Hemoglobin above threshold for needing intervention at this time (2) Acute right MCA stroke: Plan: Per primary service and neuro Admission and Anticipated Discharge Date Admission Date: May 26, 2022 Subjective has ambulated w/ walker and asst to bathroom; feeling stronger; no sob; still no bm; no abd pain or n/v/d Review of Systems Review of Systems: All systems reviewed & are unremarkable except as noted in Subjective Physical Exam Constitutional: well developed, well nourished and average body habitus; no acute distress Eyes: EOM intact bilaterally ENMT: Ears: + external ear abnormality (Laceration) Nose: no external nose abnormality Mouth: + dry oral mucous membranes Neck: no nuchal rigidity Respiratory: normal respiratory effort Auscultation: + diminished lung sounds Cardiovascular: RRR, no murmur, no edema Gastrointestinal (Abdomen): Inspection/Auscultation: abdomen normal to inspection (Peritoneal dialysis catheter), normal bowel sounds and + scaphoid Percussion/Palpation: abdomen soft; abdomen nontender Musculoskeletal: Extremities: strength 5/5 throughout Skin: no rashes, warm and dry Trauma: + laceration (Left brow) Psychiatric: Orientation: oriented x 3 Speech: normal rate/rhythm/volume of speech Results & Data Vital Signs (Past 12 Hours) Vital Signs Temp Pulse Pulse Pulse Resp BP Pulse Ox 05/28/22 18:24 36.9 C 101 H 18 114/77 96 05/28/22 15:47 107 H 05/28/22 15:29 37.0 C 104 H 18 114/79 96 05/28/22 11:53 36.7 C 109 H 19 98/70 L 97 05/28/22 08:00 36.6 C 67 18 05/28/22 07:00 84 05/28/22 07:52 36.6 C 67 18 140/76 96 O2 Del Method 05/28/22 18:24 Room Air 05/28/22 15:47 05/28/22 15:29 Room Air 05/28/22 11:53 Room Air 05/28/22 08:00 05/28/22 07:00 05/28/22 07:52 Room Air Laboratory Results 05/28/22 06:56 05/28/22 06:56
[2022-05-28] MEDS ORDERED: LACTULOSE SYRUP 30 GM/45 ML UDP PO SCH (21:00)
[2022-05-28] MEDS: LATANOPROST 0.005% OP SOLN 2.5 ML BTL OPB SCH (21:54)
[2022-05-29] MEDS ORDERED: ALBUMIN 25% 100 mL 25 GM/100 ML VIAL IV ONE ×2 (04:02→06:30)
--- NOTE | 2022-05-29 04:18 | Communication Note ---
Date of Service: May 29, 2022 Code elisa called around 3:50 AM. Transient unresponsiveness while on the commode. Patient with diarrhea symptoms as per RN. Patient denies abdominal pain. Patient denies chest pain, SOB. No witnessed seizures. SBP 100s noted with patient in the supine position. Lactic acid 4.5 AP Syncopal event possible orthostasis laxative induced diarrhea given borderline BP Rule out C. difficile IVF bolus, recheck lactic acid Hold Coreg for now Hold lactulose stool C. difficile Will relay to AM provider.
[2022-05-29 04:23] LABS: Basophils # (auto) 0.06 K/uL (0-0.2); Basophils % (auto) 0.9 %; Eosinophils # (auto) 0.34 K/uL (0-0.50); Eosinophils % (auto) 4.9 %; Hematocrit (blood only) 40.4 % (42.0-52.0); Hemoglobin 13.5 g/dl (14.0-18.0); Immature Granulocytes # (auto) 0.02 K/uL (0.01-0.20); Immature Granulocytes % (auto) 0.3 %; Lymphocytes # (auto) 1.96 K/uL (1.2-3.4); Lymphocytes % (auto) 28.2 %; Mean Corpuscular Hemoglobin 31.1 pg (25.0-34.0); Mean Corpuscular Hgb Conc 33.4 g/dL (32.0-36.0); Mean Corpuscular Volume 93.1 fL (80.0-100.0); Mean Platelet Volume 9.9 fL (9.4-12.4); Monocytes # (auto) 0.59 K/uL (0.11-0.59); Monocytes % (auto) 8.5 %; Neutrophils # (auto) 3.98 K/uL (1.40-6.50); Neutrophils % (auto) 57.2 %; Platelet Count 232 K/uL (130-400); RDW Coefficient of Variation 16.4 % (11.5-14.5); RDW Standard Deviation 55.4 fL (36.4-46.3); Red Blood Count 4.34 M/uL (4.70-6.10); White Blood Count 6.95 K/ul (4.8-10.8)
[2022-05-29] MEDS ORDERED: SODIUM CHLORIDE 0.9% 1000ML 1,000 ML IV ONE (04:26)
[2022-05-29 04:31] LABS: BUN Creatinine Ratio 7.6 (10-20); Calcium 9.2 mg/dl (8.6-10.3); Creatinine Clr Calc Pharmacy 8.6 ml/min; Est GFR (African American) 8.7 ml/min; Est GFR (Non-African American) 7.5 ml/min; Magnesium 2.3 mg/dl (1.7-2.4); Potassium 3.6 mmol/L (3.5-5.1)
[2022-05-29] MEDS: SEVELAMER HCL 800 MG TABLET PO SCH ×3 (07:53→16:26)
[2022-05-29] MEDS: CLOPIDOGREL BISULFATE 75 MG TAB PO SCH (09:02)
[2022-05-29] MEDS: ASPIRIN 81 MG ECTAB PO SCH (09:02)
[2022-05-29] MEDS: allopurinoL 100 MG TAB PO SCH (09:02)
[2022-05-29] MEDS: ATORVASTATIN 40 MG TAB PO SCH (09:02)
--- NOTE | 2022-05-29 15:09 | Hospitalist Progress Note ---
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 There is a small distal branch of the right MCA within the distal sylvian fissure which is severely attenuated consistent with the area of thrombus seen on the prior study. This accounts for the acute right MCA territory infarct. 3. 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 4. 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 --Head CT: Within the right posterior sylvian fissure there is a punctate hyperdense focus suspicious for thrombus within a branch of the distal right MCA. Distal to this area there is a focal hypodensity within the right parietal lobe likely corresponding to an acute distal MCA territory infarct. --Brain MRI:Confirmation of the distal right MCA territory infarct as described above. This is similar to the prior CT examination. No intracranial hemorrhage or midline shift at this time. --Neck CTA:Extensive plaque within the proximal right internal carotid artery with approximate 40-50% stenosis. Moderate plaque within the left internal carotid artery without stenosis. Dominant, patent left carotid artery. Diminu tive right vertebral artery, on a congenital basis. --ECHO: EF 55 to 60%. Grade 2 diastolic dysfunction. Calcified mitral apparatus causing mitral stenosis. Moderate mitral regurgitation. Mild mitral stenosis. Interatrial septum is intact with no evidence of ASD. No interatrial shunt. Continue aspirin, Plavix, Lipitor PT OT, speech eval Appreciate neurology input Waiting for rehab placement Needs follow-up with neurology upon discharge Needs ZIO monitor arranged as outpatient Syncope Positive Orthostatics BP relatively low Coreg held Monitor BP Prediabetes HbA1c 6.2 ESRD on Dialysis Appreciate Nephrology Input HTN Resume Coreg as able Gout continue allopurinol DVT Px: SCDs for now Code Status FULL CODE Disposition Rehab as able Admission and Anticipated Discharge Date Admission Date: May 26, 2022 Subjective Patient is seen and examined at bedside Patient had a syncopal episode overnight Left sided weakness continues to improve Denies any chest pain, shortness of breath, dizziness, nausea, abdominal pain Had a brief run of tachycardia on monitor-asymptomatic Review of Systems Review of Systems: All systems reviewed & are unremarkable except as noted in Subjective Physical Exam Physical Exam: Physical Exam: Vitals signs as noted above General Appearance:Moderately built and nourished, no apparent distress Head: normocephalic, Atraumatic Eyes: normal inspection, EOMI Neck: supple, Trachea midline Respiratory/Chest: Normal breath sounds, CTA, No accessory muscle use Cardiovascular: S1, S2, + murmur Abdomen/GI:Soft, Non tender, Bowel sounds present Extremities/Musculoskeletal:normal inspection, no edema Neurologic/Psych:AAOX3, Left leg mild weakness when compared to Right Skin: normal color, warm Results & Data Results & Data Vital Signs (Past 12 Hours) Vital Signs Temp Pulse Pulse Pulse Resp BP BP 05/29/22 11:23 36.5 C 77 18 110/70 05/29/22 08:00 75 05/29/22 08:12 36.3 C L 80 17 05/29/22 07:50 36.3 C L 80 17 127/71 05/29/22 04:17 102 H 124/58 L 05/29/22 03:49 36.9 C 78 18 102/64 05/29/22 03:27 36.6 C 88 14 124/87 Pulse Ox O2 Del Method 05/29/22 11:23 99 Room Air 05/29/22 08:00 05/29/22 08:12 05/29/22 07:50 98 Room Air 05/29/22 04:17 05/29/22 03:49 96 Room Air 05/29/22 03:27 97 Room Air Laboratory Results Short CBC 05/29/22 Range/Units 03:57 WBC 6.95 (4.8-10.8) K/ul Hgb 13.5 L (14.0-18.0) g/dl Hct 40.4 L (42.0-52.0) % Plt Count 232 (130-400) K/uL BMP 05/29/22 04:03 Sodium 134 L Potassium 3.6 Chloride 97 L Carbon Dioxide 22 BUN 50 H Creatinine 6.57 H* Glucose 138 H Calcium 9.2
[2022-05-29] MEDS ORDERED: NSS + 20MEQ KCL 20 MEQ/1,000 ML BAG IV ONE (15:51)
--- NOTE | 2022-05-29 15:55 | Nephrology Progress Note ---
Date of Service May 29, 2022 Assessment & Plan (1) ESRD (end stage renal disease) on dialysis: Plan: Have modified his outpatient manual exchange prescription to 4 x 2.5 L exchanges over 10 hours with 2 at 1.5% and 2 at 2.5%. His BP is generally good but will run gently this evening >> all 1.5% exchanges. Target BP per neuro is <130/80 and he is on target He stated at admission that the cycler does not work due to drain challenges; but he ran w/ 2 alarms on day of admission. May need to roll patient at times during the night to help him drain. Avoid further IV contrast if possible in attempt to retain residual renal function; that said in life-threatening situations, IV contrast not contraindicated No indication at this time to resume torsemide and he may not need it anytime soon Daily basic metabolic panel Continue with meals sevelamer >>>resumed lactulose AM dose starting tomorrow with hold parameters to hold if > 1 BM /day >> HE IS AT RISK FOR PD PERITONITIS if he does not maintain BM daily at least Hemoglobin above threshold for needing intervention at this time (2) Acute right MCA stroke: Plan: Per primary service and neuro Admission and Anticipated Discharge Date Admission Date: May 26, 2022 Subjective Patient had normal saline 1/2 L and 2 doses of albumin overnight after he had transient unresponsiveness while sitting on the commode for a bowel movement. Of note these were his first bowel movements this admission. Participated in physical therapy today feeling more optimistic. Denies shortness of breath, weakness, chest pain, edema. Does endorse a slight headache Review of Systems Review of Systems: All systems reviewed & are unremarkable except as noted in Subjective Physical Exam Constitutional: well developed (Sitting up in chair looking out the window), well nourished and average body habitus; no acute distress Eyes: EOM intact bilaterally ENMT: Ears: + external ear abnormality (Laceration) Nose: no external nose abnormality Mouth: + dry oral mucous membranes Neck: no nuchal rigidity Respiratory: normal respiratory effort Auscultation: + diminished lung sounds Cardiovascular: Rate/Rhythm: + tachycardic Extremities: no AV fistula Gastrointestinal (Abdomen): Inspection/Auscultation: abdomen normal to inspection (Peritoneal dialysis catheter), normal bowel sounds and + scaphoid Percussion/Palpation: abdomen soft; abdomen nontender Musculoskeletal: Extremities: strength 5/5 throughout Skin: no rashes, warm and dry Trauma: + laceration (Left brow) Psychiatric: Orientation: oriented x 3 Speech: normal rate/rhythm/volume of speech Affect: euthymic affect Results & Data Vital Signs (Past 12 Hours) Vital Signs Temp Pulse Pulse Pulse Resp BP BP 05/29/22 15:36 36.5 C 116 H 20 94/59 L 05/29/22 11:23 36.5 C 77 18 110/70 05/29/22 08:00 75 05/29/22 08:12 36.3 C L 80 17 05/29/22 07:50 36.3 C L 80 17 127/71 05/29/22 04:17 102 H 124/58 L 05/29/22 03:49 36.9 C 78 18 102/64 Pulse Ox O2 Del Method 05/29/22 15:36 98 Room Air 05/29/22 11:23 99 Room Air 05/29/22 08:00 05/29/22 08:12 05/29/22 07:50 98 Room Air 05/29/22 04:17 05/29/22 03:49 96 Room Air Laboratory Results 05/29/22 03:57 05/29/22 04:03
[2022-05-29] MEDS: METOPROLOL TARTRATE 25 MG TAB PO SCH ×2 (17:14→21:37)
[2022-05-29] MEDS: LATANOPROST 0.005% OP SOLN 2.5 ML BTL OPB SCH (21:38)
[2022-05-30] MEDS: allopurinoL 100 MG TAB PO SCH (08:52)
[2022-05-30] MEDS: SEVELAMER HCL 800 MG TABLET PO SCH ×2 (08:52→11:51)
[2022-05-30] MEDS: CLOPIDOGREL BISULFATE 75 MG TAB PO SCH (08:52)
[2022-05-30] MEDS: ASPIRIN 81 MG ECTAB PO SCH (08:52)
[2022-05-30] MEDS: ATORVASTATIN 40 MG TAB PO SCH (08:52)
[2022-05-30] MEDS: METOPROLOL TARTRATE 25 MG TAB PO SCH (08:53)
[2022-05-30] MEDS ORDERED: LACTULOSE SYRUP 30 GM/45 ML UDP PO SCH (09:00)
[2022-05-30 09:25] LABS: Hematocrit (blood only) 36.5 % (42.0-52.0); Hemoglobin 12.3 g/dl (14.0-18.0); Mean Corpuscular Hemoglobin 31.1 pg (25.0-34.0); Mean Corpuscular Hgb Conc 33.7 g/dL (32.0-36.0); Mean Corpuscular Volume 92.4 fL (80.0-100.0); Mean Platelet Volume 9.9 fL (9.4-12.4); Platelet Count 221 K/uL (130-400); RDW Coefficient of Variation 16.1 % (11.5-14.5); RDW Standard Deviation 55.2 fL (36.4-46.3); Red Blood Count 3.95 M/uL (4.70-6.10)
[2022-05-30 09:53] LABS: BUN Creatinine Ratio 8.4 (10-20); Calcium 9.1 mg/dl (8.6-10.3); Est GFR (African American) 9.1 ml/min; Est GFR (Non-African American) 7.9 ml/min; Potassium 3.2 mmol/L (3.5-5.1)
--- NOTE | 2022-05-30 10:56 | Dialysis Progress Note ---
Date of Service May 30, 2022 Assessment & Plan Admission and Anticipated Discharge Date Admission Date: May 26, 2022 Subjective Assessment & Plan (1) ESRD (end stage renal disease) on dialysis: Plan: Have modified his outpatient manual exchange prescription to 4 x 2.5 L exchanges over 10 hours with cycler with 2 at 1.5% and 2 at 2.5%. for tonight will do all 2.5% to achieve some UF. Avoid further IV contrast if possible in attempt to retain residual renal function; that said in life-threatening situations, IV contrast not contraindicated Daily basic metabolic panel Continue with meals sevelamer Resume home dose of torsemide 100 daily from tomorrow. (2) Acute right MCA stroke: Plan: Per primary service and neuro Subjective patient seen for PD. Had no UF overnight. No issues overnight. Review of Systems Review of Systems: All systems reviewed & are unremarkable except as noted in Subjective Physical Exam Constitutional: well developed (Sitting up in chair looking out the window), well nourished and average body habitus; no acute distress Eyes: EOM intact bilaterally ENMT: Ears: + external ear abnormality (Laceration) Nose: no external nose abnormality Mouth: + dry oral mucous membranes Neck: no nuchal rigidity Respiratory: normal respiratory effort Auscultation: + diminished lung sounds Cardiovascular: Rate/Rhythm: + tachycardic Extremities: no AV fistula Gastrointestinal (Abdomen): Inspection/Auscultation: abdomen normal to inspection (Peritoneal dialysis catheter), normal bowel sounds and + scaphoid Percussion/Palpation: abdomen soft; abdomen nontender Musculoskeletal: Extremities: strength 5/5 throughout Skin: no rashes, warm and dry Trauma: + laceration (Left brow) Psychiatric: Orientation: oriented x 3 Speech: normal rate/rhythm/volume of speech Affect: euthymic affect Results & Data Vital Signs (Past 12 Hours) Vital Signs Temp Pulse Pulse Resp BP Pulse Ox O2 Del Method 05/30/22 07:46 36.5 C 77 18 05/30/22 07:57 76 05/30/22 07:46 36.5 C 77 18 127/77 98 Room Air 05/30/22 03:31 36.8 C 75 18 132/81 99 Room Air 05/29/22 23:00 36.5 C 73 16 148/86 H 99 Room Air
[2022-05-30] MEDS ORDERED: POTASSIUM CHLORIDE CRTAB 20 MEQ TABCR PO STA (11:16)
--- NOTE | 2022-05-30 12:33 | Pharmacy Report ---
- Date of Service May 30, 2022 - Pharmacy CVA/TIA Medication Review Medications to Prevent Stroke handout has been added to the patients discharge packet. Antiplatelet(s) * ASA 81mg PO daily * Plavix 75mg PO daily * Per neuro recommendations, continue DAPT x1 month, then one antiplatelet agent may be discontinued Cholesterol * High intensity statin: atorvastatin 40 mg daily DVT Prophylaxis * Pharmacologic and mechanical DVT prophylaxis deferred due to frequent ambulation Therapeutic Anticoagulation * No history of Afib/Aflutter noted Type 2 Diabetes * Patient does not have T2DM * Pre-diabetes, per A1c 6.2% -- diet/lifestyle modifications should be encouraged
--- NOTE | 2022-05-30 14:02 | Hospitalist Progress Note ---
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 There is a small distal branch of the right MCA within the distal sylvian fissure which is severely attenuated consistent with the area of thrombus seen on the prior study. This accounts for the acute right MCA territory infarct. 3. 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 4. 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 --Head CT: Within the right posterior sylvian fissure there is a punctate hyperdense focus suspicious for thrombus within a branch of the distal right MCA. Distal to this area there is a focal hypodensity within the right parietal lobe likely corresponding to an acute distal MCA territory infarct. --Brain MRI:Confirmation of the distal right MCA territory infarct as described above. This is similar to the prior CT examination. No intracranial hemorrhage or midline shift at this time. --Neck CTA:Extensive plaque within the proximal right internal carotid artery with approximate 40-50% stenosis. Moderate plaque within the left internal carotid artery without stenosis. Dominant, patent left carotid artery. Diminu tive right vertebral artery, on a congenital basis. --ECHO: EF 55 to 60%. Grade 2 diastolic dysfunction. Calcified mitral apparatus causing mitral stenosis. Moderate mitral regurgitation. Mild mitral stenosis. Interatrial septum is intact with no evidence of ASD. No interatrial shunt. Continue aspirin, Plavix, Lipitor PT OT, speech eval Appreciate neurology input Needs follow-up with neurology upon discharge Needs ZIO monitor arranged as outpatient Patient prefers to be discharged home with home health Syncope Positive Orthostatics BP relatively low Coreg changed to Metoprolol Monitor BP Prediabetes HbA1c 6.2 ESRD on Dialysis Appreciate Nephrology Input Plan to resume torsemide tomorrow HTN Continue Metoprolol Gout continue allopurinol Code Status FULL CODE Disposition Home with Home Health Admission and Anticipated Discharge Date Admission Date: May 26, 2022 Subjective Patient is seen and examined at bedside Doing well this morning No new complaints No issues on life skills coordinator overnight Left sided weakness improved Denies any chest pain, shortness of breath, dizziness, nausea, abdominal pain Discussed with nephrology today Review of Systems 2 Review of Systems: All systems reviewed & are unremarkable except as noted in Subjective Physical Exam Physical Exam: Physical Exam: Vitals signs as noted above General Appearance:Moderately built and nourished, no apparent distress Head: normocephalic, Atraumatic Eyes: normal inspection, EOMI Neck: supple, Trachea midline Respiratory/Chest: Normal breath sounds, CTA, No accessory muscle use Cardiovascular: S1, S2, + murmur Abdomen/GI:Soft, Non tender, Bowel sounds present Extremities/Musculoskeletal:normal inspection, no edema Neurologic/Psych:AAOX3, Left leg mild weakness when compared to Right Skin: normal color, warm Results & Data Results & Data Vital Signs (Past 12 Hours) Vital Signs Temp Pulse Pulse Resp BP Pulse Ox O2 Del Method 05/30/22 11:25 36.5 C 97 H 19 113/73 99 Room Air 05/30/22 07:46 36.5 C 77 18 05/30/22 07:57 76 05/30/22 07:46 36.5 C 77 18 127/77 98 Room Air 05/30/22 03:31 36.8 C 75 18 132/81 99 Room Air Laboratory Results Short CBC 05/30/22 Range/Units 09:03 WBC 8.00 (4.8-10.8) K/ul Hgb 12.3 L (14.0-18.0) g/dl Hct 36.5 L (42.0-52.0) % Plt Count 221 (130-400) K/uL BMP 05/30/22 09:03 Sodium 135 L Potassium 3.2 L Chloride 98 Carbon Dioxide 26 BUN 53 H Creatinine 6.28 H* Glucose 187 H Calcium 9.1
--- NOTE | 2022-05-30 14:16 | Discharge Summary ---
Date of Service May 30, 2022 Admission HPI Per Admitting Provider This is a 77-year-old male who has significant past medical history of end-stage renal disease on PD, T2DM, HTN, HLD, gout, anemia of renal disease, glaucoma, history of prostate cancer who presents to ED secondary to left-sided numbness and weakness since this morning. Patient fell last night around 7 or 8 when he was leaning against the counter and kind of slid down and hit his head but there was no loss of consciousness. EMS was summoned by but at that time he would not come to ER. He does have a minimal headache but no neck pain. He believes he went to bed around 10 PM and was feeling in his normal state of health at that time. He woke up at approximately 7 AM today and noticed that he was experiencing weakness and numbness to left side more than usual. This morning he was unable to walk. Typically he walks w/o assist device. He denies f/c/s, dizziness, lightheaded, cough, cp, sob, palpitations, n/v/d, abd pain, change in bowel or urinary habits. Currently he denies problems other than weakn ess/numbness to L arm/leg. He denies difficulty talking of swallowing. In ED patient was hemodynamically stable. A stroke alert was called due to neurological symptoms. Initial head CT concerning for suspicious thrombus within the branch of the distal right MCA as distal to this area there was a focal hypodensity within the right parietal lobe likely corresponding with an acute distal MCA territory infarct. He underwent head and neck CTA which revealed again small area of hypodensity within the right parietal lobe consistent with acute infarct, small distal branch of right MCA within distal sylvian fissure which is severely attenuated consistent with area of thrombus seen on the prior study. This accounts for the acute right MCA territory infarct. Foca fusiform aneurysm dilatation of the distal left vertebral artery measuring 5.6 mm as well as a severe hypoplastic distal right vertebral artery which is not well visualized. Neck CTA revealed extensive plaque within the proximal right internal carotid artery approximately 40 to 50% stenosis, moderate plaque within the left internal carotid artery without stenosis. Dominant, patent left carotid artery. 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 Telemetry neurologist recommended loading with ASA and Plavix. Patient was out of window for thrombolytic and occlusion to distal for intervention. Admission Exam Per Admitting Provider General: Elderly man in no distress Eyes: PERRL, conjunctivae normal, not pale, anicteric sclerae, EOM intact bilaterally ENMT: External ear and nose normal, oropharynx normal Respiratory: Normal respiratory effort, no respiratory distress, lungs clear to auscultation, no crackles and no wheezes Cardiovascular: RRR S1 S2 Gastrointestinal (Abdomen): Abdomen is not distended, soft, non-tender to palpation, no guarding, no palpable hepatosplenomegaly, normal bowel sounds Musculoskeletal: No pedal edema Neurologic: Alert and oriented x 3, deficits to fine touch on LUE/LLE, +Left arm 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, 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 Psychiatric: Euthymic affect Principal Diagnosis Acute cerebrovascular accident Distal left vertebral artery aneurysm Syncope End-stage renal disease on dialysis Discharge Data Allergies Allergy/AdvReac Type Severity Reaction Status Date / Time No Known Allergies Allergy Verified 03/23/21 15:27 Consultations 05/26/22 14:01 Consult Neurology Routine 05/26/22 14:07 Consult Nephrology Routine Procedures Performed Laboratory Results WBC 8.00 K/ul (4.8-10.8) 05/30/22 09:03 RBC 3.95 M/uL (4.70-6.10) L 05/30/22 09:03 Hgb 12.3 g/dl (14.0-18.0) L 05/30/22 09:03 POC Hgb 11.2 g/dl (14.0-18.0) L 05/26/22 11:11 Hct 36.5 % (42.0-52.0) L 05/30/22 09:03 POC Hct 33 % (42-52) L 05/26/22 11:11 MCV 92.4 fL (80.0-100.0) 05/30/22 09:03 MCH 31.1 pg (25.0-34.0) 05/30/22 09:03 MCHC 33.7 g/dL (32.0-36.0) 05/30/22 09:03 RDW Std Deviation 55.2 fL (36.4-46.3) H 05/30/22 09:03 RDW Coeff of Bayron 16.1 % (11.5-14.5) H 05/30/22 09:03 Plt Count 221 K/uL (130-400) 05/30/22 09:03 MPV 9.9 fL (9.4-12.4) 05/30/22 09:03 Immature Gran % (Auto) 0.3 % 05/29/22 03:57 Neut % (Auto) 57.2 % 05/29/22 03:57 Lymph % (Auto) 28.2 % 05/29/22 03:57 Kershaw % (Auto) 8.5 % 05/29/22 03:57 Eos % (Auto) 4.9 % 05/29/22 03:57 Baso % (Auto) 0.9 % 05/29/22 03:57 Neut # (Auto) 3.98 K/uL (1.40-6.50) 05/29/22 03:57 Lymph # (Auto) 1.96 K/uL (1.2-3.4) 05/29/22 03:57 Kershaw # (Auto) 0.59 K/uL (0.11-0.59) 05/29/22 03:57 Eos # (Auto) 0.34 K/uL (0-0.50) 05/29/22 03:57 Baso # (Auto) 0.06 K/uL (0-0.2) 05/29/22 03:57 Immature Gran # (Auto) 0.02 K/uL (0.01-0.20) 05/29/22 03:57 PT 10.2 Seconds (9.0-12.0) 05/26/22 11:10 INR 1.0 (0.9-1.1) 05/26/22 11:10 APTT 25.2 Seconds (21.0-31.0) 05/26/22 11:10 PTT Ratio 0.9 05/26/22 11:10 POC Sodium 137 mmol/L (135-144) 05/26/22 11:11 Sodium 135 mmol/L (136-145) L 05/30/22 09:03 POC Potassium 4.6 mmol/L (3.3-5.0) 05/26/22 11:11 Potassium 3.2 mmol/L (3.5-5.1) L 05/30/22 09:03 POC Chloride 99 mmol/L (101-112) L 05/26/22 11:11 Chloride 98 mmol/L (98-107) 05/30/22 09:03 Carbon Dioxide 26 mmol/L (21-32) 05/30/22 09:03 POC Total CO2 26 mmol/L (24-31) 05/26/22 11:11 Anion Gap 11 (3-11) 05/30/22 09:03 POC Anion Gap 17.0 mmol/L (16-25) 05/26/22 11:11 POC BUN 64 mg/dl (7-18) H 05/26/22 11:11 BUN 53 mg/dl (6-23) H 05/30/22 09:03 Creatinine 6.28 mg/dl (0.6-1.4) H* 05/30/22 09:03 POC Creatinine 6.7 mg/dl (0.6-1.3) H* 05/26/22 11:11 Est Cr Clr Drug Dosing 9.0 ml/min 05/30/22 09:03 Est GFR ( Amer) 9.1 ml/min 05/30/22 09:03 Est GFR (Non-Af Amer) 7.9 ml/min 05/30/22 09:03 BUN/Creatinine Ratio 8.4 (10-20) L 05/30/22 09:03 Glucose 187 mg/dl (70-99(Fasting)) H 05/30/22 09:03 POC Glucose 72 mg/dl (70-99) 05/26/22 11:03 POC Glucose (other) 87 mg/dl (70-99) 05/26/22 11:11 Estimat Average Glucose 131 mg/dl 05/27/22 05:30 Hemoglobin A1c 6.2 % (4.5-5.6) H 05/27/22 05:30 Lactate 4.8 mmol/L (0.4-2.0) H* 05/29/22 03:57 Calcium 9.1 mg/dl (8.6-10.3) 05/30/22 09:03 POC Ioniz Calcium Karlo 1.04 mmol/l (1.12-1.32) L 05/26/22 11:11 Magnesium 2.3 mg/dl (1.7-2.4) 05/29/22 04:03 Total Bilirubin 0.5 mg/dl (0.2-1.0) 05/26/22 11:10 AST 26 U/L (13-39) 05/26/22 11:10 ALT 21 U/L (7-52) 05/26/22 11:10 Alkaline Phosphatase 69 U/L (34-104) 05/26/22 11:10 Troponin I High Sens 18.1 pg/ml (0-20) 05/26/22 11:10 Total Protein 8.0 gm/dl (6.0-8.3) 05/26/22 11:10 Albumin 4.0 gm/dl (3.4-5.0) 05/26/22 11:10 Globulin 4.0 gm/dl (2.5-4.0) 05/26/22 11:10 Albumin/Globulin Ratio 1.0 (0.9-2) 05/26/22 11:10 Triglycerides 265 mg/dl (0-150) H 05/27/22 05:30 Cholesterol 164 mg/dl (0-200) 05/27/22 05:30 LDL Cholesterol, Calc 85 mg/dl 05/27/22 05:30 VLDL Cholesterol, Calc 53 mg/dl (0-30) H 05/27/22 05:30 HDL Cholesterol 26 mg/dl 05/27/22 05:30 Cholesterol/HDL Ratio 6.3 (0-5) H 05/27/22 05:30 SARS-CoV-2, RNA, NAAT NEGATIVE (NEGATIVE) 05/26/22 12:21 Blood Type A Negative 05/26/22 11:36 Antibody Screen NEGATIVE 05/26/22 11:[address] 05/26/22 11:[address] DOSE: HISTORY: Left-sided paresthesias. Recent head injury. neuro deficit, acute stroke suspected TECHNIQUE: Multiaxial CT images of the head were performed without the use of intravenous contrast. Automated exposure control was utilized for this study. A dose lowering technique was utilized adhering to the principles of ALARA. Comparison: None. Findings: The paranasal sinuses and mastoid air cells are clear. There is a 2.5 cm lucent lesion within the high convexity right parietal bone. This favors a benign lesion such as a hemangioma. Otherwise, the calvarium and skull base are intact. The ventricles and sulci which remain mild age-related involutional changes. There is no hematoma, midline shift, intracranial mass identified. Within the right posterior sylvian fissure on image 16 there is a punctate hyperdense focus suspicious for thrombus within a branch of the distal right MCA. Distal to this area there is a focal hypodensity within the right parietal lobe likely corresponding to an acute distal MCA territory infarct. This is best seen on image 19. Impression: Within the right posterior sylvian fissure there is a punctate hyperdense focus suspicious for thrombus within a branch of the distal right MCA. Distal to this area there is a focal hypodensity within the right parietal lobe likely corresponding to an acute distal MCA territory infarct. ACT 112: Negative or not required by law. Electronically signed by: Marito Mcgee M.D. 05/26/2022 11:[address] 05/26/22 11:18 CT cervical spine wo con CLINICAL HISTORY: fall TECHNIQUE: Multidetector row helical CT of the cervical spine was performed without administration of intravenous contrast. Coronal and sagittal reformations were obtained. Automated dose lowering techniques and/or adjustment according to patient size were utilized for this exam. Comparison: None available at the time of this dictation. FINDINGS: No acute fractures or subluxations are identified. Degenerative changes are seen in the visualized spine. The alignment is normal. Soft tissues are unremarkable. IMPRESSION: Degenerative changes without evidence of acute bony injury. ACT 112: Negative or not required by law. Electronically signed by: Ren Thompson M.D. 05/26/2022 11:37 AM Head CTA 05/26/22 12:13 HEAD CTA HISTORY: Left-sided paresthesias. Abnormal head CT. cva, eval for large vessel occlusion TECHNIQUE: Multiaxial CT images of the head were performed both before and after the intravenous administration of contrast to evaluate the major cerebral vessels. Maximum intensity projection images were also obtained. A dose lowering technique was utilized adhering to the principles of ALARA. COMPARISON: None. FINDINGS: Small area of hypodensity within the right parietal lobe again noted consistent with an acute infarct. There is a small distal branch of the right MCA within the distal sylvian fissure best seen on images 169 through 179 which is severely attenuated consistent with the area of thrombus seen on the prior study. This accounts for the acute right MCA territory infarct. Otherwise, the bilateral ACAs, bilateral tile inspector, and left MCA show no significant stenosis, occlusion, or aneurysm. Mild calcified plaque within the bilateral carotid siphons without significant stenosis or occlusion. A basilar artery and left vertebral artery widely patent. 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 The distal right ve rtebral artery is severely hypoplastic and not well visualized. The major dural venous sinuses are patent. IMPRESSION: 1. Small area of hypodensity within the right parietal lobe again noted con sistent with an acute infarct. 2. There is a small distal branch of the right MCA within the distal sylvian fissure which is severely attenuated consistent with the area of thrombus seen on the prior study. This accounts for the acute right MCA territory infarct. 3. 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 4. Severely hypoplastic distal right vertebral artery which is not well visualized. ACT 112: Negative or not required by law. Electronically signed by: Marito Mcgee M.D. 05/26/2022 1:09 PM Neck CTA 05/26/22 12:13 CT ANGIOGRAPHY OF THE NECK WITH CONTRAST CLINICAL HISTORY: Neuro deficit. Possible stroke. Evaluate for large vessel occlusion. COMPARISON STUDY: No previous studies for comparison. Technique: CT angiography of the carotid and vertebral arteries was obtained using [employer] and 3D reconstruction on an independent workstation. NASCET criteria was utilized. Automated exposure control was utilized for the study. A dose lowering technique was utilized adhering to the principles of ALARA. CT DOSE: 509.50 mGy.cm Findings: Visualized portions of the lung apices are unremarkable. There is no cervical lymphadenopathy. There is moderate plaque within the proximal left internal carotid artery without stenosis. The left common carotid and cervical internal carotid arteries are patent. There is moderate plaque of the left subclavian artery without stenosis. The left vertebral artery is dominant and patent. The right vertebral artery is diminutive and ends in PICA. There is no stenosis within the right common carotid artery. Moderate plaque within this vessel is noted. There is extensive plaque within the proximal right internal carotid artery. Vessel narrowing is difficult to measure on the axial images however there is approximate 40-50% stenosis of the proximal right internal carotid artery. No additional stenoses are identified. IMPRESSION: 1. Extensive plaque within the proximal right internal carotid artery with approximate 40-50% stenosis. 2. Moderate plaque within the left internal carotid artery without stenosis. 3. Dominant, patent left carotid artery. Diminutive right vertebral artery, on a congenital basis. ACT 112: Negative or not required by law. Electronically signed by: Junito Kim M.D. 05/26/2022 1:06 PM Brain MRI 05/27/22 09:01 Brain MRI WITHOUT CONTRAST HISTORY: Left-sided weakness. Acute right MCA territory stroke. Headaches. Follow-up. TECHNIQUE: Multiplanar multisequence MRI of the brain was performed without the use of contrast. COMPARISON STUDY: Head CT 05/26/2022. FINDINGS: Patchy areas of restricted diffusion involving the right temporoparietal region which measures an area of approximately 4.5 x 3.4 cm consistent with the patient's known distal right MCA territory infarct. This is similar to the prior CT examination. There is associated cytotoxic edema at the area of infarct. However, no significant mass effect or midline shift at this time. The midline structures appear intact. Prior bilateral lens replacement. The paranasal sinuses and mastoid air cells are clear. The major vascular flow- voids at the skull base are well-maintained. Mild atrophy and microvascular ischemic changes are noted. No intracranial hemorrhage identified. IMPRESSION: 1. Confirmation of the distal right MCA territory infarct as described above. This is similar to the prior CT examination. 2. No intracranial hemorrhage or midline shift at this time. ACT 112: Negative or not required by law. Electronically signed by: Marito Mcgee M.D. 05/27/2022 10:46 AM Ordered Studies 05/26/22 11:17 CT head/brain wo con Stat 05/26/22 11:18 CT cervical spine wo con Stat 05/26/22 12:13 CT angio head w con Stat CT angio neck with con Stat 05/27/22 09:01 MRI Brain [MR brain wo con] Routine Hospital Course (1) Acute right MCA stroke: (2) Cerebral infarction due to occlusion of right middle cerebral artery: (3) Acute left-sided weakness: (4) ESRD (end stage renal disease) on dialysis: (5) HTN (hypertension): (6) Pre-diabetes: Plan Patient is a 77 yr male with H/O End-stage renal disease on dialysis, DM II, HTN, HLD, gout, anemia of renal disease, glaucoma, history of prostate cancer who presents to ED secondary to left-sided numbness and weakness. 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 There is a small distal branch of the right MCA within the distal sylvian fissure which is severely attenuated consistent with the area of thrombus seen on the prior study. This accounts for the acute right MCA territory infarct. 3. 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 4. Severely hypoplastic distal right vertebral artery which is not well visualized. --Head CT: Within the right posterior sylvian fissure there is a punctate hyperdense focus suspicious for thrombus within a branch of the distal right MCA. Distal to this area there is a focal hypodensity within the right parietal lobe likely corresponding to an acute distal MCA territory infarct. --Brain MRI:Confirmation of the distal right MCA territory infarct as described above. This is similar to the prior CT examination. No intracranial hemorrhage or midline shift at this time. --Neck CTA:Extensive plaque within the proximal right internal carotid artery with approximate 40-50% stenosis. Moderate plaque within the left internal carotid artery without stenosis. Dominant, patent left carotid artery. Diminutive right vertebral artery, on a congenital basis. --ECHO: EF 55 to 60%. Grade 2 diastolic dysfunction. Calcified mitral apparatus causing mitral stenosis. Moderate mitral regurgitation. Mild mitral stenosis. Interatrial septum is intact with no evidence of ASD. No interatrial shunt. Continue aspirin, Plavix, Lipitor PT OT, speech eval Appreciate neurology input Needs follow-up with neurology upon discharge Needs ZIO monitor arranged as outpatient Patient prefers to be discharged home with home health Syncope Positive Orthostatics BP relatively low Coreg changed to Metoprolol Monitor BP Prediabetes HbA1c 6.2 ESRD on Dialysis Appreciate Nephrology Input Plan to resume torsemide tomorrow HTN Continue Metoprolol Gout continue allopurinol Code Status FULL CODE Disposition Home with Home Health Total Time Total Time Spent Total Time Spent (In Minutes): 67 minutes Discharge Plan Discharge Items Patient Disposition: Home - Home Health Services Reason For Visit: ACUTE CVA Discharge Diagnosis: Acute cerebrovascular accident Distal left vertebral artery aneurysm Syncope End-stage renal disease on dialysis Activity: Per Instructions section Exercise/Sports: Gradually increase as tolerated Non-emergency contact: Primary Care Provider, Transit Coach Operator and Neurologist Call non-emergency contact if: you have any medication questions, your symptoms worsen, your pain is concerning for you and you have a fever Follow-up/Referrals: Barrett Dacosta MD [Primary Care Provider] - Raysa Markham PA-C [Physician Behavioral Intervention Specialist] - (Date & Time 06/30/2022 11:20 AM Provider Raysa Markham PA-C Department Neurology [facility] ) Diet: Dialysis Renal Addtl Attending Provider Instructions: Follow-up with your primary care physician Dr. Dc in 1 week Follow-up with your neurologist in 4 weeks Consider following with your detective precinct in 2-4 weeks as advised -- Get Zio patch arranged as outpatient to help rule out arrhythmias --- Continue aspirin 81 mg daily, Plavix 75 mg daily for 1 month and then take aspirin 81 mg daily alone as recommended by her neurologist --Start taking Lipitor 40 mg daily Seek immediate medical attention if your symptoms reoccur or worsen Please take all medications as instructed on discharge list below. Please call if you have any questions or problems. You can reach a [facility] hospitalist on duty at [facility] 24 hours a day by calling [phone] Risk Factors for Stroke: You can reduce your chances of stroke by working with your medical provider to a dopt a healthy lifestyle. Some specific ways to lower your chance of stroke are: * If you are a smoker, now is the time to stop smoking cigarettes * If you are diabetic, improve the control of your blood sugars * Avoid excessive amounts of alcohol * Control high blood pressure * Lose weight if you are overweight * Be sure to lead an active lifestyle * Eat a healthy diet low in salt, cholesterol and fat You should know about other risk factors for stroke that you are unable to control. These include: * Age 55 years or older * Male gender * Certain racial groups: , or / * Family History of Stroke, Mini stroke or Heart Attack * Sickle Cell Disease Follow Up: It is important for you to keep your follow up appointments with your medical provider. Who to Call and When: Medical Emergencies: Call 911 immediately if you experience any of the following warning signs and symptoms of Stroke: * Sudden numbness or weakness of the face, arm or leg, especially on one side of the body * Sudden confusion, trouble speaking or understanding * Sudden trouble seeing in one or both eyes * Sudden trouble walking, dizziness, loss of balance or coordination * Sudden severe headache with no cause Do not delay calling 911 if you experience any warning signs or symptoms of a stroke. Delay in seeking medical attention may affect what treatments can be given to you. . Pending Studies at Discharge: No Stand-Alone Forms: My [facility], Smoking Cessation, Medications to Prevent Stroke Medications and DC Order Prescriptions: New atorvastatin 40 mg Tablet 40 mg PO QAM Qty: 30 0RF clopidogrel 75 mg Tablet 75 mg PO QAM Qty: 30 0RF aspirin 81 mg Tablet,Delayed Release (Dr/Ec) 81 mg PO QAM Qty: 30 1RF metoprolol tartrate 25 mg Tablet 12.5 mg PO BID Qty: 60 1RF Continued latanoprost 0.005 % drops 1 drp OPB HS allopurinol 100 mg tablet 200 mg PO DAILY triamcinolone acetonide 0.1 % ointment 1 applic TOPICAL DIRECTED PRN (Reason: Skin Irritation) oxycodone 5 mg tablet 7.5 mg PO Q6H PRN (Reason: Pain) torsemide 100 mg tablet 100 mg PO DAILY lactulose 10 gram/15 mL solution 30 ml PO DAILY sevelamer carbonate 800 mg tablet 800 mg PO TIDM Rx Instructions: meals and snacks Discontinued carvedilol 3.125 mg tablet 3.125 mg PO BID Discharge Orders: Discharge Order (Routine); Ordered 05/30/22 Ordered By: Brandon Cyr/Other Patient Handouts: A1C, 5 Steps for Eating Healthier Admission Data Admit Date/Time: 05/26/22 14:01 Attending Provider: Brandon Manriquez Admit Provider: Carlie Ennis I. Primary Care Provider: Barrett Dacosta Other Providers: Destini Rodriguez ; Medhat Agarwal ; [facility],Home Healthcare ; [facility]
--- NOTE | 2022-05-30 14:57 | Electrocardiogram Report ---
Test Reason : Blood Pressure : / mmHG Vent. Rate : 116 BPM Atrial Rate : 116 BPM P-R Int : 164 ms QRS Dur : 100 ms QT Int : 340 ms P-R-T Axes : 013 004 067 degrees QTc Int : 472 ms Sinus tachycardia Possible Inferior infarct , age undetermined Abnormal ECG When compared with ECG of 26-MAY-2022 11:05, Vent. rate has increased BY 58 BPM Borderline criteria for Inferior infarct are now Present T wave inversion no longer evident in Inferior leads Confirmed by Stiven Mccann ([id number]) on 05/30/2022 2:56:48 PM Referred By: REFERRED SELF Confirmed By:Stiven Mccann
== END 2022-05-30 15:44 | disposition home health service (06) | DRG 64 ==
LOC: ED 10:55 → 2S 14:01 → SUATTDRO 14:01 → 2S 17:05

== ENCOUNTER 2022-09-05 10:46 | Inpatient (IN) ==
[2022-09-05] MEDS ORDERED: SODIUM CHLORIDE 0.9% 1000ML 250 ML IV ONE (11:25)
--- NOTE | 2022-09-05 11:42 | XRay Report ---
XR chest 1V portable CLINICAL HISTORY: Sepsis TECHNIQUE: Single frontal radiograph of the chest was obtained. Comparison: None available at the time of this dictation. FINDINGS: No lines and tubes are seen. Calcified aortic knob is seen. The lungs are clear. No evidence of pleur al effusion or pneumothorax. IMPRESSION: No acute abnormalities and in particular no radiographic evidence of pneumonia. ACT 112: Negative or not required by law. Electronically signed by: Ren Thompsno M.D. 09/05/2022 11:40 AM
[2022-09-05] MEDS ORDERED: SODIUM CHLORIDE 0.9% 1000ML 500 ML IV ONE (11:52)
[2022-09-05] MEDS ORDERED: OPTIRAY 320 100ml IV ONE (11:54)
[2022-09-05 11:55] LABS: Basophils # (auto) 0.03 K/uL (0-0.2); Basophils % (auto) 0.3 %; Eosinophils # (auto) 0.06 K/uL (0-0.50); Eosinophils % (auto) 0.6 %; Hematocrit (blood only) 35.1 % (42.0-52.0); Hemoglobin 12.6 g/dl (14.0-18.0); Immature Granulocytes # (auto) 0.06 K/uL (0.01-0.20); Immature Granulocytes % (auto) 0.6 %; Lymphocytes # (auto) 1.04 K/uL (1.2-3.4); Lymphocytes % (auto) 10.9 %; Mean Corpuscular Hemoglobin 33.7 pg (25.0-34.0); Mean Corpuscular Hgb Conc 35.9 g/dL (32.0-36.0); Mean Corpuscular Volume 93.9 fL (80.0-100.0); Mean Platelet Volume 9.2 fL (9.4-12.4); Monocytes # (auto) 0.57 K/uL (0.11-0.59); Neutrophils # (auto) 7.79 K/uL (1.40-6.50); Neutrophils % (auto) 81.6 %; Nucleated RBC # (auto) 0.02 K/uL (0-0.12); Nucleated RBC % (auto) 0.2 %; Platelet Count 365 K/uL (130-400); RDW Coefficient of Variation 16.5 % (11.5-14.5); RDW Standard Deviation 56.3 fL (36.4-46.3); Red Blood Count 3.74 M/uL (4.70-6.10); White Blood Count 9.55 K/ul (4.8-10.8)
--- NOTE | 2022-09-05 12:19 | CT Scan Report ---
ABDOMEN AND PELVIS CT WITH IV CONTRAST CT DOSE: 943.89 mGy.cm HISTORY: Lower abdominal pain. Diarrhea. Hypotension. TECHNIQUE: Multiaxial CT images of the abdomen and pelvis were performed following the use of intrave nous contrast. A dose lowering technique was utilized adhering to the principles of ALARA. COMPARISON STUDY: Abdomen and pelvis CT 09/03/2022. FINDINGS: Mild dependent changes seen within the lung bases. A calcified granuloma within the left lo wer lobe. A few small foci of gas/pneumoperitoneum seen within the right upper quadrant which have im proved. This is likely due to the patient's peritoneal catheter which terminates in the right lower q uadrant. Otherwise, no pneumatosis. No acute fractures identified. L3-S1 posterior decompression and fusion with pedicle screws and rods. The liver, gallbladder, pancreas, spleen, and adrenal glands unr emarkable. No renal or ureteral stones. No hydronephrosis. No bladder wall thickening. The right kidn ey remains atrophic. Bilateral renal hypo and hyperdense lesions again noted. No retroperitoneal lymp hadenopathy. Calcified plaque within the normal caliber abdominal aorta. No pelvic lymphadenopathy. T here is mass effect along the bladder from the distended rectum which contains a large stool ball alize suring 9 x 8 cm. This is similar to the prior study. Persistent mild rectal wall thickening for the d egree of distention may represent a stercoral colitis. There is mild perirectal edema. Moderate to la rge amount of liquid stool seen throughout the remaining colon. Colonic diverticulosis. No evidence f or acute diverticulitis. No dilated loops of small bowel identified. Normal appendix. Small to modera te amount of ascites is again noted. IMPRESSION: 1. Moderate to large amount of liquid stool seen throughout the colon including a 9 x 8 cm rectal sto ol ball. This is similar to the prior study. 2. Mild rectal wall thickening for the degree of distention is again noted. There is also mild perire ctal edema. This could represent a stercoral proctitis. 3. A few scattered foci of pneumoperitoneum seen within the upper abdomen which is likely due to the patient's peritoneal dialysis catheter. This has improved in the interval. 4. Small to moderate amount of ascites. 5. Colonic diverticulosis. No evidence for acute diverticular disc. 6. No evidence for a small bowel obstruction. ACT 112: Negative or not required by law. Electronically signed by: Marito Mcgee M.D. 09/05/2022 12:17 PM
[2022-09-05 12:22] LABS: Albumin Level 3.7 gm/dl (3.4-5.0); BUN Creatinine Ratio 9.3 (10-20); Bilirubin Direct 0.1 mg/dl (0-0.2); Bilirubin,Total 0.4 mg/dl (0.2-1.0); Calcium 9.3 mg/dl (8.6-10.3); Creatinine Clr Calc Pharmacy 0.3 ml/min; Est GFR (African American) 9.2 ml/min; Est GFR (Non-African American) 7.9 ml/min; Magnesium 2.2 mg/dl (1.7-2.4); Potassium 2.6 mmol/L (3.5-5.1); Total Protein 7.5 gm/dl (6.0-8.3); Troponin I High Sensitivity 45.6 pg/ml (0-20)
[2022-09-05 12:27] LABS: Base Excess VBG 4.2 mEq/L; HCO3 VBG 28 mmol/L; Oxygen Saturation VBG < 60.0 %; PCO2 VBG 40 mmHg (38-50); PO2 VBG 29 mmHg; pH VBG 7.46 (7.36-7.41)
[2022-09-05 12:28] LABS: Partial Thromboplastin Time 27.2 Seconds (21.0-31.0); Prothrombin Time 11.1 Seconds (9.0-12.0)
[2022-09-05] MEDS ORDERED: PIPERACILLIN/TAZOBACTAM 4.5 GM/120 ML BAG IV ONE (12:54)
[2022-09-05] MEDS ORDERED: POTASSIUM CHLORIDE 10 MEQ TABCR PO STA (12:59)
[2022-09-05] MEDS ORDERED: ACETAMINOPHEN 325 MG TAB PO PRN (13:56)
[2022-09-05] MEDS ORDERED: ONDANSETRON INJ 2 MG/ML 2 ML VIAL IV PRN (13:56)
[2022-09-05] MEDS ORDERED: POLYETHYLENE (MIRALAX) 17 GM PACK PO PRN (13:56)
--- NOTE | 2022-09-05 14:20 | History & Physical Report ---
Date of Service September 05, 2022 Assessment & Plan (1) Sepsis associated hypotension: Plan: improved with 250 ml bolus x 2 unclear if pt truly has sepsis of infectious etiology vs SIRS of non-infectious etiology, will continue IV abx until this becomes clearer pt remains afebrile and without leukocytosis f/u UA, blood and peritoneal fluid cultures no e/o infection on CXR or CT A/P CT A/P notable for stercoral proctitis, huge stool ball Present on Admission?: Yes (2) ESRD (end stage renal disease) on dialysis: Plan: does peritoneal dialysis 4x per day small amount of pneumoperitoneum d/t PD nephrology consulted, appreciate input, will follow recs per Nephrology no PD today (3) Abdominal pain: Plan: d/t chronic opioid induced constipation responded well to Milk of Mg but this had to be d/c d/t renal function. He tried Miralax without improvement. Lactulose worked "too well" and causes uncontrollable diarrhea persistent stool ball despite tx with enemas, will consult GI could benefit from Lubiprostone, Naloxegol or Naldemedine if these are compatible with ERSD on dialysis continue analgesia, avoid opiates as able Present on Admission?: Yes (4) Constipation due to opioid therapy: Plan: continue bowel regimen, GI consulted, appreciate input could benefit from Lubiprostone, Naloxegol or Naldemedine if these are compatible with ERSD on dialysis Present on Admission?: Yes (5) Stercoral colitis: Plan: bowel regimen, GI consulted, appreciate input, will follow recs (6) Type 2 diabetes, diet controlled: Plan: previously on metformin, now diet controlled diabetic diet, monitor glucose, initiate insulin coverage if needed Present on Admission?: Yes (7) Stroke: Plan: no new deficits completed 21 days of DAPT continue ASA daily Present on Admission?: Yes (8) Anemia of renal disease: Plan: h/h 12.6/35.1 at baseline monitor transfuse for hgb < 7 Present on Admission?: Yes (9) HLD (hyperlipidemia): Plan: continue statin therapy no need to check a lipid panel at this time Present on Admission?: Yes (10) HTN (hypertension): Plan: well controlled continue metoprolol 12.5 mg daily and Torsemide 100 mg daily if BP will support (hold for now, resume when indicated) Present on Admission?: Yes (11) Gout: Plan: no complaints at this time continue allopurinol Present on Admission?: Yes (12) Lumbar stenosis with neurogenic claudication: Plan: continue Tramadol consider tx for opioid induced constipation (OIC) Present on Admission?: Yes History of Present Illness Chief Complaint: abdominal pain Primary Care Provider: Barrett Dacosta MD Mr. 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 He presented due to intractable abdominal pain in the setting of chronic constipation. Here he is found to have Sepsis. CT reveals a large amount of liquid stool, a stool ball, and stercoral proctitis. He reports abdominal pain described as sharp and crampy, currently 0/10 but at worst 8/10. Pain escalates until he moves his bowels and then resolves until it begins to build up again. Pain is mainly in the RLQ and suprapubic area and radiates to the low back. He does not notice any other exacerbating or alleviating factors. This is associated with generalized weakness and poor oral intake. He denies dizziness, lightheadedness, f/c/n/v, cough, congestion, rhinorrhea, sore throat, CP/pressure, and dysuria. He does not decreased UOP despite diuretic therapy. He has no other complaints. Mr. Cason states this has been going on for a few weeks now, and is not any better or worse than before. He was seen in the ED 09/03/22 for the same problem with similar findings on imaging. He was treated with an enema which resulted in significant stool output so he was discharged home. He and his did not feel he was any better at that point. He has chronic long standing constipation d/t opiate therapy with Oxycodone which he stopped taking about 3 weeks prior. He used to take Milk of Magnesia which worked well but had to stop d/t progression to ESRD dependent on PD. He was given Miralax but states that never really did anything. He tried lactulose but that worked "too well" and caused uncontrollable diarrhea. ED Course: VS notable for HR 105 and BP 83/52, improved with 500 cc bolus. RR 22. b/w notable for h/h 12.6/35.1, Na 130, K 2.6, Cl 87, AG 19, BUN 58, Cr 6.27, glucose 146. Remaining CBC, CMP, and Mg are wnl/unremarkable. Trop I 45.6, ProCal 0.50. VBG pH 7.46, remaining VBG unimpressive. CXR: neg for acute pathology. CT abd/pelvis with Contrast; read as "Moderate to large amount of liquid stool seen throughout the colon including a 9 x 8 cm rectal stool ball. This is similar to the prior study. Mild rectal wall thickening for the degree of distention is again noted. There is also mild perirectal edema. This could represent a stercoral proctitis. A few scattered foci of pneumoperitoneum seen within the upper abdomen which is likely due to the patient's peritoneal dialysis catheter. This has improved in the interval. Small to moderate amount of ascites." Pt was given IVF. Zosyn is ordered, we are waiting for peritoneal fluid to be collected for testing prior to administration. He was also given a milk of molasses enema and admitted to hospitalist service. Allergies Allergy/AdvReac Type Severity Reaction Status Date / Time No Known Allergies Allergy Verified 09/03/22 13:55 Home Medications Medication Instructions Recorded Confirmed Type allopurinol 100 mg tablet 200 mg PO QAM 03/23/21 09/05/22 History latanoprost 0.005 % eye drops 1 drp OPB HS 03/23/21 09/05/22 History triamcinolone acetonide 0.1 % 1 applic topical DIRECTED PRN 03/23/21 09/05/22 History topical ointment Skin Irritation torsemide 100 mg tablet 100 mg PO DAILY 05/26/22 09/05/22 History aspirin 81 mg tablet,delayed 81 mg PO QAM #30 tabs 05/30/22 09/05/22 Rx release atorvastatin 40 mg tablet 40 mg PO QAM #30 tabs 05/30/22 09/05/22 Rx metoprolol succinate 25 mg 12.5 mg PO QAM 09/03/22 09/05/22 History tablet,extended release 24 hr potassium chloride 20 mEq 20 meq PO .EVERY OTHER DAY 09/03/22 09/05/22 History tablet,extended release(part/cryst) tramadol 50 mg tablet 50 - 100 mg PO Q6H PRN Pain 09/03/22 09/05/22 History sevelamer carbonate 800 mg tablet 800 mg PO TID 09/05/22 09/05/22 History vitamin B complex-vitamin C-folic 1 tab PO DAILY 09/05/22 09/05/22 History acid 0.8 mg tablet (Belinda-Moose) Past Med/Surg History Medical History (Updated 09/05/22 @ 15:06 by Michelle Clements MD) Anemia of renal disease Constipation due to opioid therapy ESRD (end stage renal disease) on dialysis Peritoneal dialysis Glaucoma Gout History of nephrolithiasis HLD (hyperlipidemia) HTN (hypertension) Lumbar stenosis with neurogenic claudication Prostate cancer Spondylolisthesis of lumbar region Stercoral colitis Type 2 diabetes, diet controlled Surgical History History of lumbar fusion Hx of cataract extraction Hx of colonoscopy Hx of prostatectomy robotic assisted retropubic 2013 Family History Mother , at 88 Stroke Father , in 60s Heart disease Social History (Updated 09/05/22 @ 14:43 by Michelle Clements MD) Smoking Status: Never smoker Tobacco Type: Smokeless Tobacco (Dip or Chew) Second Hand Exposure: No; Do You Dip or Chew Tobacco: Yes (1/2 can per day); Hx Alcohol Use: No (used to drink 4-6 beers per day, quit when started peritoneal dialysis.) Hx Substance Use: No Preferred Language: Latvian Communication Ability: Effective Hearing Ability: Hard of Hearing Superintendent Renting Managing Required: No Beliefs That Will Affect Care: None marital status: Current Living Situation: Spouse Feels Safe at Home: Yes Assistive Devices: Cane Review of Systems Review of Systems: All systems reviewed & are unremarkable except as noted in HPI & below Physical Exam Physical Exam: General: NAD, appears older than stated age Head: NC, AT, temporal wasting, sunken cheeks Eyes: anicteric sclera, no conjunctival injection Nose: nares patent Mouth: MMM Neck: supple, trachea midline CV: RRR, S1 S2, no m/r/g Pulm: CTA b/l Abd/GI: + BS, soft, tender to minimal palpation RLQ > suprabubic area, ND, no guarding : no [place] Ext: no pretibial edema MSK: normal bulk and tone Neuro: moving all 4 extremities, alert, oriented x 3. Left sided weakness at baseline. Psych: pleasant mood and affect Skin: visible skin is warm, dry, and without rash. Pt not fully undressed for exam. Results & Data Results & Data Vital Signs (Past 12 Hours) Vital Signs Temp Pulse Pulse Resp BP BP Pulse Ox 09/05/22 13:30 73 23 09/05/22 11:40 71 17 105/61 98 09/05/22 13:15 76 15 09/05/22 13:00 76 18 09/05/22 13:00 105/71 09/05/22 12:45 81 13 97 09/05/22 12:30 76 14 98 09/05/22 12:30 103/67 09/05/22 12:27 102/65 09/05/22 12:27 77 19 09/05/22 12:15 79 22 98 09/05/22 12:10 82 20 98 09/05/22 12:10 89/60 L 09/05/22 12:00 81 19 98 09/05/22 11:45 81 20 09/05/22 11:30 92 H 18 09/05/22 11:23 88 15 09/05/22 12:25 75 09/05/22 11:25 71 17 95 09/05/22 11:09 36.2 C L 105 H 19 83/52 L 100 O2 Del Method 09/05/22 13:30 09/05/22 11:40 Room Air 09/05/22 13:15 09/05/22 13:00 09/05/22 13:00 09/05/22 12:45 09/05/22 12:30 09/05/22 12:30 09/05/22 12:27 09/05/22 12:27 09/05/22 12:15 09/05/22 12:10 09/05/22 12:10 09/05/22 12:00 09/05/22 11:45 09/05/22 11:30 09/05/22 11:23 09/05/22 12:25 09/05/22 11:25 Room Air 09/05/22 11:09 Room Air Laboratory Results Short CBC 09/05/22 Range/Units 11:31 WBC 9.55 (4.8-10.8) K/ul Hgb 12.6 L (14.0-18.0) g/dl Hct 35.1 L (42.0-52.0) % Plt Count 365 (130-400) K/uL BMP 09/05/22 11:31 Sodium 130 L Potassium 2.6 L Chloride 87 L Carbon Dioxide 24 BUN 58 H Creatinine 6.27 H* Glucose 146 H Calcium 9.3 Liver Function 09/05/22 Range/Units 11:31 Total Bilirubin 0.4 (0.2-1.0) mg/dl Direct Bilirubin 0.1 (0-0.2) mg/dl AST 22 (13-39) U/L ALT 21 (7-52) U/L Alkaline Phosphatase 91 (34-104) U/L Albumin 3.7 (3.4-5.0) gm/dl Diagnostic Findings Abdomen/Pelvis CT 09/05/22 11:[address] WITH IV CONTRAST HISTORY: Lower abdominal pain. Diarrhea. Hypotension. COMPARISON STUDY: Abdomen and pelvis CT 09/03/2022. FINDINGS: Mild dependent changes seen within the lung bases. A calcified granuloma within the left lower lobe. A few small foci of gas/pneumoperitoneum seen within the right upper quadrant which have improved. This is likely due to the patient's peritoneal catheter which terminates in the right lower quadrant. Otherwise, no pneumatosis. No acute fractures identified. L3-S1 posterior decompression and fusion with pedicle screws and rods. The liver, gallbladder, pancreas, spleen, and adrenal glands unremarkable. No renal or ureteral stones. No hydronephrosis. No bladder wall thickening. The right kidney remains atrophic. Bilateral renal hypo and hyperdense lesions again noted. No retroperitoneal lymphadenopathy. Calcified plaque within the normal caliber abdominal aorta. No pelvic lymphadenopathy. There is mass effect along the bladder from the distended rectum which contains a large stool ball measuring 9 x 8 cm. This is similar to the prior study. Persistent mild rectal wall thickeni ng for the degree of distention may represent a stercoral colitis. There is mild perirectal edema. Moderate to large amount of liquid stool seen throughout the remaining colon. Colonic diverticulosis. No evidence for acute diverticulitis. No dilated loops of small bowel identified. Normal appendix. Small to moderate amount of ascites is again noted. IMPRESSION: 1. Moderate to large amount of liquid stool seen throughout the colon including a 9 x 8 cm rectal stool ball. This is similar to the prior study. 2. Mild rectal wall thickening for the degree of distention is again noted. There is also mild perirectal edema. This could represent a stercoral proctitis. 3. A few scattered foci of pneumoperitoneum seen within the upper abdomen which is likely due to the patient's peritoneal dialysis catheter. This has improved in the interval. 4. Small to moderate amount of ascites. 5. Colonic diverticulosis. No evidence for acute diverticular disc. 6. No evidence for a small bowel obstruction. Electronically signed by: Marito Mcgee M.D. 09/05/2022 12:17 PM Chest X-Ray 09/05/22 11:25 XR chest 1V portable FINDINGS: No lines and tubes are seen. Calcified aortic knob is seen. The lungs are clear. No evidence of pleural effusion or pneumothorax. IMPRESSION: No acute abnormalities and in particular no radiographic evidence of pneumonia. electronically signed by: Ren Thompson M.D. 09/05/2022 11:40 AM Code Status & VTE Plan Code Status DNR VTE Prophylaxis Plan VTE Prophylaxis will be ordered: Yes
[2022-09-05] MEDS ORDERED: TRIAMCINOLONE ACET 0.1% OINT 15 GM TUBE TOP PRN (15:07)
[2022-09-05] MEDS ORDERED: traMADol HCL 50 MG TABLET PO PRN ×2 (15:12→15:16)
[2022-09-05] MEDS ORDERED: ENOXAPARIN INJ 40 MG/0.4 ML SYR SQ SCH (16:00)
--- NOTE | 2022-09-05 16:40 | Nephrology Consultation ---
Date of Consultation September 05, 2022 Assessment & Plan (1) ESRD (end stage renal disease) on dialysis: ESRD on PD -He is on manual exchanges( 2. 5 l, 1.5%,3 bags of 4 hr dwell and 1 bag of 8 hr long dwell0 -Chronic hypotension , but has been asymptomatic. -In hospital, he will be of Cycler, 4 cycles, 2.5 lit of 1.5%, 4 exchanges for a total of 10 hr. -OK with fluid bolus if becomes symptomatic with hypotension -Continue on home medications , except the diuretics. - Kcl 40 meq daily - Renally dose antibiotic. (2) Sepsis associated hypotension: As above -Peritoneal fluid was clear, unlikley peritonitis.Continue with Zoysn until fluid analysis is avaliable.Will need IP abx if it shows peritonitis-- Vancomycin + cefepime until cultures avaliable. - Likley 2/ colitis. (3) Stercoral colitis: (4) Constipation due to opioid therapy: History of Present Illness Reason for Consultation: ESRD on PD History of Present Illness 77 year old male a/w crampy RLQ and suprapubic abdominal pain, genreralized weakness and poor oral intake over the last few weeks. ER workup was sihnifucant for sepsis and CT revealed a large amount of liquid stool, a stool ball, and stercoral proctitis with few scattered foci of pneumoperitoneum seen within the upper abdomenHe was seen in the ED 09/03/22 for the same problem with similar findings on imaging. He was treated with an enema which resulted in significant stool output so he was discharged home. 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 He used to take Milk of Magnesia which worked well but had to stop d/t progression to ESRD dependent on PD, He has tried miralax which did not help, lactulose worked but caused uncontrollable diarrhea. ED work up was signifucant for HR 105 and BP 83/52(improved with 500 cc bolus)Labs were significant for Na 130, K 2.6, Cl 87, AG 19, BUN 58, Cr 6.27, glucose 146. Remaining CBC, CMP, and Mg are wnl/unremarkable. Pt received IV fluid bolus and was started on Zosyn Peritoneal fluid for sent for analysis. Allergies Allergy/AdvReac Type Severity Reaction Status Date / Time No Known Allergies Allergy Verified 09/03/22 13:55 Home Medications Medication Instructions Recorded Confirmed Type allopurinol 100 mg tablet 200 mg PO QAM 03/23/21 09/05/22 History latanoprost 0.005 % eye drops 1 drp OPB HS 03/23/21 09/05/22 History triamcinolone acetonide 0.1 % 1 applic topical DIRECTED PRN 03/23/21 09/05/22 History topical ointment Skin Irritation torsemide 100 mg tablet 100 mg PO DAILY 05/26/22 09/05/22 History aspirin 81 mg tablet,delayed 81 mg PO QAM #30 tabs 05/30/22 09/05/22 Rx release atorvastatin 40 mg tablet 40 mg PO QAM #30 tabs 05/30/22 09/05/22 Rx metoprolol succinate 25 mg 12.5 mg PO QAM 09/03/22 09/05/22 History tablet,extended release 24 hr potassium chloride 20 mEq 20 meq PO .EVERY OTHER DAY 09/03/22 09/05/22 History tablet,extended release(part/cryst) tramadol 50 mg tablet 50 - 100 mg PO Q6H PRN Pain 09/03/22 09/05/22 History sevelamer carbonate 800 mg tablet 800 mg PO TID 09/05/22 09/05/22 History vitamin B complex-vitamin C-folic 1 tab PO DAILY 09/05/22 09/05/22 History acid 0.8 mg tablet (Belinda-Moose) Patient History Medical History (Updated 09/05/22 @ 15:06 by Michelle Clements MD) Anemia of renal disease Constipation due to opioid therapy ESRD (end stage renal disease) on dialysis Peritoneal dialysis Glaucoma Gout History of nephrolithiasis HLD (hyperlipidemia) HTN (hypertension) Lumbar stenosis with neurogenic claudication Prostate cancer Spondylolisthesis of lumbar region Stercoral colitis Type 2 diabetes, diet controlled Surgical History History of lumbar fusion Hx of cataract extraction Hx of colonoscopy Hx of prostatectomy robotic assisted retropubic 2013 Family History Mother , at 88 Stroke Father , in 60s Heart disease Social History (Updated 09/05/22 @ 14:43 by Michelle Clements MD) Smoking Status: Never smoker Tobacco Type: Smokeless Tobacco (Dip or Chew) Second Hand Exposure: No; Do You Dip or Chew Tobacco: Yes (1/2 can per day); Tobacco Cessation Education Requested by Patient: No Hx Alcohol Use: No (used to drink 4-6 beers per day, quit when started peritoneal dialysis.) Hx Substance Use: No Preferred Language: Turkish Communication Ability: Effective Hearing Ability: Hard of Hearing Data Reporting Analyst Required: No Beliefs That Will Affect Care: None marital status: Current Living Situation: Spouse Feels Safe at Home: Yes Assistive Devices: Cane Review of Systems Review of Systems: All systems reviewed & are unremarkable except as noted in HPI & below Physical Exam Physical Exam: General:NAD, appears older than stated age Eyes: anicteric sclera, no conjunctival injection Neck:supple, trachea midline CV:RRR, S1 S2, no m/r/g Pulm:CTA b/l Abd/GI:+ BS, soft, tender to minimal palpation RLQ > suprabubic area, ND, no guarding Ext:no pretibial edema Results & Data Vital Signs (Past 12 Hours) Vital Signs Temp Pulse Pulse Resp BP BP Pulse Ox 09/05/22 14:30 69 24 100 09/05/22 14:30 116/63 09/05/22 14:27 70 27 H 09/05/22 14:27 114/49 L 09/05/22 14:22 70 20 09/05/22 13:30 102/57 L 09/05/22 13:30 73 23 09/05/22 11:40 71 17 105/61 98 09/05/22 13:15 76 15 09/05/22 13:00 76 18 09/05/22 13:00 105/71 09/05/22 12:45 81 13 97 09/05/22 12:30 76 14 98 09/05/22 12:30 103/67 09/05/22 12:27 102/65 09/05/22 12:27 77 19 09/05/22 12:15 79 22 98 09/05/22 12:10 82 20 98 09/05/22 12:10 89/60 L 09/05/22 12:00 81 19 98 09/05/22 11:45 81 20 09/05/22 11:30 92 H 18 09/05/22 11:23 88 15 09/05/22 12:25 75 09/05/22 11:25 71 17 95 09/05/22 11:09 36.2 C L 105 H 19 83/52 L 100 O2 Del Method 09/05/22 14:30 09/05/22 14:30 09/05/22 14:27 09/05/22 14:27 09/05/22 14:22 09/05/22 13:30 09/05/22 13:30 09/05/22 11:40 Room Air 09/05/22 13:15 09/05/22 13:00 09/05/22 13:00 09/05/22 12:45 09/05/22 12:30 09/05/22 12:30 09/05/22 12:27 09/05/22 12:27 09/05/22 12:15 09/05/22 12:10 09/05/22 12:10 09/05/22 12:00 09/05/22 11:45 09/05/22 11:30 09/05/22 11:23 09/05/22 12:25 09/05/22 11:25 Room Air 09/05/22 11:09 Room Air Laboratory Results 09/05/22 11:31 09/05/22 11:31
--- NOTE | 2022-09-05 16:51 | Emergency Department Note ---
History of Present Illness General Chief complaint: GI Assessment Stated complaint: MIGHT STILL HAVE BLOCKAGE IN BOWEL Time Seen by Provider: 09/05/22 11:15 History of Present Illness Provider complaint: Abdominal pain constipation Onset (ago): week(s) 2 Maximum Pain Intensity: 8 77-year-old male presents emergency department with family member for abdominal pain and constipation. Patient symptoms been low for last 2 weeks. Patient rep orts that he was seen in the emergency department 2 days ago and was given enemas which he thought cleared him up but states he is now again having constipation and thinks his bowels are blocked. Patient is a peritoneal dialysis patient. He reports abdominal pain. No nausea or vomiting. No fever s. Home Medications Medication Instructions Recorded Confirmed Type allopurinol 100 mg tablet 200 mg PO QAM 03/23/21 09/05/22 History latanoprost 0.005 % eye drops 1 drp OPB HS 03/23/21 09/05/22 History triamcinolone acetonide 0.1 % 1 applic topical DIRECTED PRN 03/23/21 09/05/22 History topical ointment Skin Irritation torsemide 100 mg tablet 100 mg PO DAILY 05/26/22 09/05/22 History aspirin 81 mg tablet,delayed 81 mg PO QAM #30 tabs 05/30/22 09/05/22 Rx release atorvastatin 40 mg tablet 40 mg PO QAM #30 tabs 05/30/22 09/05/22 Rx metoprolol succinate 25 mg 12.5 mg PO QAM 09/03/22 09/05/22 History tablet,extended release 24 hr potassium chloride 20 mEq 20 meq PO .EVERY OTHER DAY 09/03/22 09/05/22 History tablet,extended release(part/cryst) tramadol 50 mg tablet 50 - 100 mg PO Q6H PRN Pain 09/03/22 09/05/22 History sevelamer carbonate 800 mg tablet 800 mg PO TID 09/05/22 09/05/22 History vitamin B complex-vitamin C-folic 1 tab PO DAILY 09/05/22 09/05/22 History acid 0.8 mg tablet ([place]inda-Moose) Allergies Allergy/AdvReac Type Severity Reaction Status Date / Time No Known Allergies Allergy Verified 09/03/22 13:55 Past Med/Surg History Medical History Anemia of renal disease Constipation due to opioid therapy ESRD (end stage renal disease) on dialysis Peritoneal dialysis Glaucoma Gout History of nephrolithiasis HLD (hyperlipidemia) HTN (hypertension) Lumbar stenosis with neurogenic claudication Prostate cancer Spondylolisthesis of lumbar region Stercoral colitis Type 2 diabetes, diet controlled Surgical History History of lumbar fusion Hx of cataract extraction Hx of colonoscopy Hx of prostatectomy robotic assisted retropubic 2013 Family History Mother , at 88 Stroke Father , in 60s Heart disease Social History Smoking Status: Never smoker Tobacco Type: Smokeless Tobacco (Dip or Chew) Second Hand Exposure: No; Do You Dip or Chew Tobacco: Yes (1/2 can per day); Tobacco Cessation Education Requested by Patient: No Hx Alcohol Use: No (used to drink 4-6 beers per day, quit when started peritoneal dialysis.) Hx Substance Use: No Preferred Language: Pakistani Communication Ability: Effective Hearing Ability: Hard of Hearing Federal Judge Required: No Beliefs That Will Affect Care: None marital status: Current Living Situation: Spouse Feels Safe at Home: Yes Assistive Devices: Cane Physical Exam Vital Signs Vital Signs - 24 hr 09/05/22 11:09 09/05/22 11:25 09/05/22 12:25 Temperature 36.2 C L Temperature Source Temporal Artery Scan Pulse Rate 105 H 71 75 Pulse Rate [Right Finger] Pulse Rate from SpO2 Sensor Pulse Rhythm Regular Pulse Rhythm [Right Finger] Pulse Strength [Right Finger] Respiratory Rate 19 17 Respiratory Effort / Characteristics Respiratory Depth Respiratory Pattern Blood Pressure 83/52 L Blood Pressure [Right Arm] Blood Pressure Mean 62 Blood Pressure Mean [Right Arm] Pulse Oximetry 100 95 Oxygen Delivery Method Room Air Room Air Sepsis Recent Fever Within 48 Hours No Sepsis New/Unexplained Change in Mental Status N/A Sepsis Action Taken by Nursing Physician Notified 09/05/22 11:23 09/05/22 11:30 09/05/22 11:45 Temperature Temperature Source Pulse Rate 88 92 H 81 Pulse Rate [Right Finger] Pulse Rate from SpO2 Sensor Pulse Rhythm Pulse Rhythm [Right Finger] Pulse Strength [Right Finger] Respiratory Rate 15 18 20 Respiratory Effort / Characteristics Respiratory Depth Respiratory Pattern Blood Pressure Blood Pressure [Right Arm] Blood Pressure Mean Blood Pressure Mean [Right Arm] Pulse Oximetry Oxygen Delivery Method Sepsis Recent Fever Within 48 Hours Sepsis New/Unexplained Change in Mental Status Sepsis Action Taken by Nursing 09/05/22 12:00 09/05/22 12:10 09/05/22 12:10 Temperature Temperature Source Pulse Rate 81 82 Pulse Rate [Right Finger] Pulse Rate from SpO2 Sensor 80 78 Pulse Rhythm Pulse Rhythm [Right Finger] Pulse Strength [Right Finger] Respiratory Rate 19 20 Respiratory Effort / Characteristics Respiratory Depth Respiratory Pattern Blood Pressure 89/60 L Blood Pressure [Right Arm] Blood Pressure Mean 68 Blood Pressure Mean [Right Arm] Pulse Oximetry 98 98 Oxygen Delivery Method Sepsis Recent Fever Within 48 Hours Sepsis New/Unexplained Change in Mental Status Sepsis Action Taken by Nursing 09/05/22 12:15 09/05/22 12:27 09/05/22 12:27 Temperature Temperature Source Pulse Rate 79 77 Pulse Rate [Right Finger] Pulse Rate from SpO2 Sensor 80 Pulse Rhythm Pulse Rhythm [Right Finger] Pulse Strength [Right Finger] Respiratory Rate 22 19 Respiratory Effort / Characteristics Respiratory Depth Respiratory Pattern Blood Pressure 102/65 Blood Pressure [Right Arm] Blood Pressure Mean 70 Blood Pressure Mean [Right Arm] Pulse Oximetry 98 Oxygen Delivery Method Sepsis Recent Fever Within 48 Hours Sepsis New/Unexplained Change in Mental Status Sepsis Action Taken by Nursing 09/05/22 12:30 09/05/22 12:30 09/05/22 12:45 Temperature Temperature Source Pulse Rate 76 81 Pulse Rate [Right Finger] Pulse Rate from SpO2 Sensor 75 81 Pulse Rhythm Pulse Rhythm [Right Finger] Pulse Strength [Right Finger] Respiratory Rate 14 13 Respiratory Effort / Characteristics Respiratory Depth Respiratory Pattern Blood Pressure 103/67 Blood Pressure [Right Arm] Blood Pressure Mean 80 Blood Pressure Mean [Right Arm] Pulse Oximetry 98 97 Oxygen Delivery Method Sepsis Recent Fever Within 48 Hours Sepsis New/Unexplained Change in Mental Status Sepsis Action Taken by Nursing 09/05/22 13:00 09/05/22 13:00 09/05/22 13:15 Temperature Temperature Source Pulse Rate 76 76 Pulse Rate [Right Finger] Pulse Rate from SpO2 Sensor Pulse Rhythm Pulse Rhythm [Right Finger] Pulse Strength [Right Finger] Respiratory Rate 18 15 Respiratory Effort / Characteristics Respiratory Depth Respiratory Pattern Blood Pressure 105/71 Blood Pressure [Right Arm] Blood Pressure Mean 78 Blood Pressure Mean [Right Arm] Pulse Oximetry Oxygen Delivery Method Sepsis Recent Fever Within 48 Hours Sepsis New/Unexplained Change in Mental Status Sepsis Action Taken by Nursing 09/05/22 11:40 09/05/22 13:30 09/05/22 13:30 Temperature Temperature Source Pulse Rate 73 Pulse Rate [Right Finger] 71 Pulse Rate from SpO2 Sensor Pulse Rhythm Pulse Rhythm [Right Finger] Regular Pulse Strength [Right Finger] Normal Respiratory Rate 17 23 Respiratory Effort / Characteristics Non-Labored Respiratory Depth Normal Respiratory Pattern Regular Blood Pressure 102/57 L Blood Pressure [Right Arm] 105/61 Blood Pressure Mean 78 Blood Pressure Mean [Right Arm] 75 Pulse Oximetry 98 Oxygen Delivery Method Room Air Sepsis Recent Fever Within 48 Hours Sepsis New/Unexplained Change in Mental Status Sepsis Action Taken by Nursing 09/05/22 14:22 09/05/22 14:27 09/05/22 14:27 Temperature Temperature Source Pulse Rate 70 70 Pulse Rate [Right Finger] Pulse Rate from SpO2 Sensor Pulse Rhythm Pulse Rhythm [Right Finger] Pulse Strength [Right Finger] Respiratory Rate 20 27 H Respiratory Effort / Characteristics Respiratory Depth Respiratory Pattern Blood Pressure 114/49 L Blood Pressure [Right Arm] Blood Pressure Mean 78 Blood Pressure Mean [Right Arm] Pulse Oximetry Oxygen Delivery Method Sepsis Recent Fever Within 48 Hours Sepsis New/Unexplained Change in Mental Status Sepsis Action Taken by Nursing 09/05/22 14:30 09/05/22 14:30 09/05/22 16:31 Temperature Temperature Source Pulse Rate 69 Pulse Rate [Right Finger] 66 Pulse Rate from SpO2 Sensor 60 Pulse Rhythm Pulse Rhythm [Right Finger] Pulse Strength [Right Finger] Respiratory Rate 24 17 Respiratory Effort / Characteristics Non-Labored Spontaneous Respiratory Depth Normal Respiratory Pattern Blood Pressure 116/63 Blood Pressure [Right Arm] 106/71 Blood Pressure Mean 76 Blood Pressure Mean [Right Arm] 82 Pulse Oximetry 100 98 Oxygen Delivery Method Room Air Sepsis Recent Fever Within 48 Hours Sepsis New/Unexplained Change in Mental Status Sepsis Action Taken by Nursing 09/05/22 16:21 Temperature Temperature Source Pulse Rate 63 Pulse Rate [Right Finger] Pulse Rate from SpO2 Sensor Pulse Rhythm Pulse Rhythm [Right Finger] Pulse Strength [Right Finger] Respiratory Rate Respiratory Effort / Characteristics Respiratory Depth Respiratory Pattern Blood Pressure Blood Pressure [Right Arm] Blood Pressure Mean Blood Pressure Mean [Right Arm] Pulse Oximetry Oxygen Delivery Method Sepsis Recent Fever Within 48 Hours Sepsis New/Unexplained Change in Mental Status Sepsis Action Taken by Nursing Physical Exam EYES: Conjunctivae and EOM are normal. Pupils are equal, round, and reactive to light. Right eye exhibits no discharge. Left eye exhibits no discharge. No scleral icterus. NECK: Normal range of motion. Neck supple. No JVD present. No spinous process tenderness present. No tracheal deviation and normal range of motion present. CV: Normal rate, regular rhythm, normal heart sounds and intact distal pulses. There is no peripheral edema. Palpable radial pulses bue. PULM/CHEST: Effort normal and breath sounds normal. No respiratory distress. No stridor. He has no wheezes. He has no rales. ABD: The abdomen is soft. Peritoneal dialysis catheter in place. Pain on palpation of the left lower quadrant right lower quadrant and suprapubic area. No guarding or rigidity. MUSC/SKEL: Normal range of motion. There is no peripheral edema, tenderness or deformity. NEURO: Motor and sensation grossly intact. Course Course 1115: The patient was evaluated in room B2. A complete history and physical exam was performed Cardiac monitoring: An order was placed for continuous cardiac monitoring. The monitor shows a rate of 90 with sinus rhythm interpreted by me Patient arrives hypotensive. Sepsis protocols initiated. Patient is end-stage renal disease on peritoneal dialysis therefore we will judiciously give small fluid boluses. Normal saline bolus of 250 cc ordered for the patient. 1150: Patient's blood pressure improved with small normal saline 250 cc normal saline bolus. Patient's lactic acid is elevated above 4. Additional normal saline bolus of 250 cc will be given. 1224: Vital signs stable, blood pressure stable after 2 250 cc normal saline boluses. Labs show white blood cell count 9.55. Hemoglobin 12.6. VBG within normal limits. Sodium 130. Potassium 2.6. Creatinine to baseline 6.27. Lactic acid 4.7. Troponin elevated at 45.6, patient not reporting chest pain most likely elevated secondary to patient's end-stage renal disease. CT of the abdomen pelvis shows moderate to large amount of liquid stool with a centimeter rectal stool ball with mild wall rectal thickening associated with perirectal edema associated with sterile coral proctitis. There is a few small scattered foci of pneumoperitoneum seen within the upper abdomen which is likely due to the patient's peritoneal dialysis catheter. Small amount of ascites. Patient does do peritoneal dialysis. Patient has no peritoneal signs however bacterial peritonitis and infected peritoneal fluid could be causing the patient's pain. Discussed the case with nephrology Dr. Cordova. The patient confirms that he does have peritoneal dialysate 2500 cc in him at this time and at the time of the CT scan. 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 Dr. Cordova states to hold the dialysis today. He wants the peritoneal dialysis fluid to be analyzed and states he is going to see if a nurse can come down and evaluate the patient to remove some peritoneal dialysis fluid to analyze it. 1249: Vital signs stable. Dr. Cordova states his nurse will be down to pull off some peritoneal fluid to conduct studies on it. He states he will place the orders for the peritoneal dialysis fluid studies that he wants done. He states he will hold dialysis today. He states it is okay to start antibiotics empirically for sepsis after the patient's peritoneal fluid is pulled. No intraperitoneal antibiotics at this time. He recommends given the patient's K- Dur 40 mill equivalents p.o. Enemas ordered for the patient. Patient will be admitted to the hospitalist team Ab. Administered Medications Enoxaparin Sodium (Enoxaparin Inj 40 Mg/0.4 Ml Syr) 40 mg SQ Q24H MITZY Stop: 10/05/22 15:59 Last Admin: 09/05/22 16:18 Dose: 40 mg Documented By: BERT Discontinued Medications Sodium Chloride (Nss 1000ml) 250 mls @ 999 mls/hr IV .Q16M ONE Stop: 09/05/22 11:40 Last Infusion: 09/05/22 12:08 Dose: 0 mls/hr Documented By: Admin: 09/05/22 11:42 Dose: 999 mls/hr Documented By: ROSS Sodium Chloride (Nss 1000ml) 500 mls @ 999 mls/hr IV .Q31M ONE Stop: 09/05/22 12:22 Last Infusion: 09/05/22 14:55 Dose: 0 mls/hr Documented By: Infusion: 09/05/22 12:30 Dose: 999 mls/hr Documented By: Admin: 09/05/22 12:13 Dose: 999 mls/hr Documented By: ROSS Piperacillin Sod/Tazobactam Sod (Zosyn) 4.5 gm in 120 mls @ 240 mls/hr IV NOW ONE Stop: 09/05/22 13:23 Last Infusion: 09/05/22 14:54 Dose: 0 mls/hr Documented By: Admin: 09/05/22 14:14 Dose: 240 mls/hr Documented By: KARLEY Ioversol (Optiray 320 100ml) 93 ml IV ONCE ONE Stop: 09/05/22 11:55 Last Admin: 09/05/22 11:51 Dose: 93 ml Documented By: CARLOS Potassium Chloride (Potassium Chloride 10 Meq Tabcr) 40 meq PO NOW STA Stop: 09/05/22 13:00 Last Admin: 09/05/22 14:16 Dose: 40 meq Documented By: KARLEY Critical Care Time Critical Care Time: Yes Total Critical Care Time: 54 I have personally spent greater than 54 minutes of critical care time in the direct management of this patient. This includes bedside care, interpretation of diagnostic studies, and testing, discussion with consultants, patient, and family members, and other required patient management activities. This 54 minutes is in excess of all separately billable procedures. Medical Decision Making Laboratory Data Attestation: I reviewed the patient's lab results. 09/05/22 11:31 09/05/22 11:31 Lab Results 09/05/22 09/05/22 09/05/22 Range/Units 11:31 11:31 11:31 WBC 9.55 (4.8-10.8) K/ul RBC 3.74 L (4.70-6.10) M/uL Hgb 12.6 L (14.0-18.0) g/dl Hct 35.1 L (42.0-52.0) % MCV 93.9 (80.0-100.0) fL MCH 33.7 (25.0-34.0) pg MCHC 35.9 (32.0-36.0) g/dL RDW Std Deviation 56.3 H (36.4-46.3) fL RDW Coeff of [place]ron 16.5 H (11.5-14.5) % Plt Count 365 (130-400) K/uL MPV 9.2 L (9.4-12.4) fL Immature Gran % (Auto) 0.6 % Neut % (Auto) 81.6 % Lymph % (Auto) 10.9 % [place] % (Auto) 6.0 % Eos % (Auto) 0.6 % Baso % (Auto) 0.3 % Neut # (Auto) 7.79 H (1.40-6.50) K/uL Lymph # (Auto) 1.04 L (1.2-3.4) K/uL [place] # (Auto) 0.57 (0.11-0.59) K/uL Eos # (Auto) 0.06 (0-0.50) K/uL Baso # (Auto) 0.03 (0-0.2) K/uL Immature Gran # (Auto) 0.06 (0.01-0.20) K/uL Absolute Nucleated RBC 0.02 (0-0.12) K/uL Nucleated RBC % (auto) 0.2 % PT 11.1 (9.0-12.0) Seconds INR 1.0 (0.9-1.1) APTT 27.2 (21.0-31.0) Seconds PTT Ratio 1.0 VBG pH (7.36-7.41) VBG pCO2 (38-50) mmHg VBG pO2 mmHg VBG HCO3 mmol/L VBG O2 Saturation % VBG Base Excess mEq/L Sodium 130 L (136-145) mmol/L Potassium 2.6 L (3.5-5.1) mmol/L Chloride 87 L (98-107) mmol/L Carbon Dioxide 24 (21-32) mmol/L Anion Gap 19 H (3-11) BUN 58 H (6-23) mg/dl Creatinine 6.27 H* (0.6-1.4) mg/dl Est Cr Clr Drug Dosing 0.3 ml/min Est GFR ( Amer) 9.2 ml/min Est GFR (Non-Af Amer) 7.9 ml/min BUN/Creatinine Ratio 9.3 L (10-20) Glucose 146 H (70-99(Fasting)) mg/dl Lactate (0.4-2.0) mmol/L Calcium 9.3 (8.6-10.3) mg/dl Magnesium 2.2 (1.7-2.4) mg/dl Total Bilirubin 0.4 (0.2-1.0) mg/dl Direct Bilirubin 0.1 (0-0.2) mg/dl AST 22 (13-39) U/L ALT 21 (7-52) U/L Alkaline Phosphatase 91 (34-104) U/L Troponin I High Sens 45.6 H (0-20) pg/ml Total Protein 7.5 (6.0-8.3) gm/dl Albumin 3.7 (3.4-5.0) gm/dl Procalcitonin (0-0.5) ng/ml Urine Color Urine Appearance (Clear) Urine pH (4.5-7.5) Ur Specific [place] (1.000-1.030) Urine Protein (Negative) Urine Glucose (UA) (Negative) Urine Ketones (Negative) Urine Blood (Negative) Urine Nitrite (Negative) Urine Bilirubin (Negative) Urine Urobilinogen (Negative) Ur Leukocyte Esterase (Negative) Urine WBC (Auto) (0-5) /hpf Urine RBC (Auto) (0-4) /hpf U Hyaline Cast (Auto) (0-5) /lpf U Epithel Cells (Auto) (0-5) /lpf Urine Bacteria (Auto) (Negative) Fluid Comment SARS-CoV-2, RNA, NAAT (NEGATIVE) 09/05/22 09/05/22 09/05/22 Range/Units 11:31 11:31 12:10 WBC (4.8-10.8) K/ul RBC (4.70-6.10) M/uL Hgb (14.0-18.0) g/dl Hct (42.0-52.0) % MCV (80.0-100.0) fL MCH (25.0-34.0) pg MCHC (32.0-36.0) g/dL RDW Std Deviation (36.4-46.3) fL RDW Coeff of Bayron (11.5-14.5) % Plt Count (130-400) K/uL MPV (9.4-12.4) fL Immature Gran % (Auto) % Neut % (Auto) % Lymph % (Auto) % [place] % (Auto) % Eos % (Auto) % Baso % (Auto) % Neut # (Auto) (1.40-6.50) K/uL Lymph # (Auto) (1.2-3.4) K/uL [place] # (Auto) (0.11-0.59) K/uL Eos # (Auto) (0-0.50) K/uL Baso # (Auto) (0-0.2) K/uL Immature Gran # (Auto) (0.01-0.20) K/uL Absolute Nucleated RBC (0-0.12) K/uL Nucleated RBC % (auto) % PT (9.0-12.0) Seconds INR (0.9-1.1) APTT (21.0-31.0) Seconds PTT Ratio VBG pH 7.46 H (7.36-7.41) VBG pCO2 40 (38-50) mmHg VBG pO2 29 mmHg VBG HCO3 28 mmol/L VBG O2 Saturation < 60.0 % VBG Base Excess 4.2 mEq/L Sodium (136-145) mmol/L Potassium (3.5-5.1) mmol/L Chloride (98-107) mmol/L Carbon Dioxide (21-32) mmol/L Anion Gap (3-11) BUN (6-23) mg/dl Creatinine (0.6-1.4) mg/dl Est Cr Clr Drug Dosing ml/min Est GFR ( Amer) ml/min Est GFR (Non-Af Amer) ml/min BUN/Creatinine Ratio (10-20) Glucose (70-99(Fasting)) mg/dl Lactate 4.7 H* (0.4-2.0) mmol/L Calcium (8.6-10.3) mg/dl Magnesium (1.7-2.4) mg/dl Total Bilirubin (0.2-1.0) mg/dl Direct Bilirubin (0-0.2) mg/dl AST (13-39) U/L ALT (7-52) U/L Alkaline Phosphatase (34-104) U/L Troponin I High Sens (0-20) pg/ml Total Protein (6.0-8.3) gm/dl Albumin (3.4-5.0) gm/dl Procalcitonin 0.50 (0-0.5) ng/ml Urine Color Urine Appearance (Clear) Urine pH (4.5-7.5) Ur Specific [place] (1.000-1.030) Urine Protein (Negative) Urine Glucose (UA) (Negative) Urine Ketones (Negative) Urine Blood (Negative) Urine Nitrite (Negative) Urine Bilirubin (Negative) Urine Urobilinogen (Negative) Ur Leukocyte Esterase (Negative) Urine WBC (Auto) (0-5) /hpf Urine RBC (Auto) (0-4) /hpf U Hyaline Cast (Auto) (0-5) /lpf U Epithel Cells (Auto) (0-5) /lpf Urine Bacteria (Auto) (Negative) Fluid Comment SARS-CoV-2, RNA, NAAT (NEGATIVE) 09/05/22 09/05/22 09/05/22 Range/Units 13:38 13:55 13:55 WBC (4.8-10.8) K/ul RBC (4.70-6.10) M/uL Hgb (14.0-18.0) g/dl Hct (42.0-52.0) % MCV (80.0-100.0) fL MCH (25.0-34.0) pg MCHC (32.0-36.0) g/dL RDW Std Deviation (36.4-46.3) fL RDW Coeff of Bayron (11.5-14.5) % Plt Count (130-400) K/uL MPV (9.4-12.4) fL Immature Gran % (Auto) % Neut % (Auto) % Lymph % (Auto) % [place] % (Auto) % Eos % (Auto) % Baso % (Auto) % Neut # (Auto) (1.40-6.50) K/uL Lymph # (Auto) (1.2-3.4) K/uL [place] # (Auto) (0.11-0.59) K/uL Eos # (Auto) (0-0.50) K/uL Baso # (Auto) (0-0.2) K/uL Immature Gran # (Auto) (0.01-0.20) K/uL Absolute Nucleated RBC (0-0.12) K/uL Nucleated RBC % (auto) % PT (9.0-12.0) Seconds INR (0.9-1.1) APTT (21.0-31.0) Seconds PTT Ratio VBG pH (7.36-7.41) VBG pCO2 (38-50) mmHg VBG pO2 mmHg VBG HCO3 mmol/L VBG O2 Saturation % VBG Base Excess mEq/L Sodium (136-145) mmol/L Potassium (3.5-5.1) mmol/L Chloride (98-107) mmol/L Carbon Dioxide (21-32) mmol/L Anion Gap (3-11) BUN (6-23) mg/dl Creatinine (0.6-1.4) mg/dl Est Cr Clr Drug Dosing ml/min Est GFR ( Amer) ml/min Est GFR (Non-Af Amer) ml/min BUN/Creatinine Ratio (10-20) Glucose (70-99(Fasting)) mg/dl Lactate (0.4-2.0) mmol/L Calcium (8.6-10.3) mg/dl Magnesium (1.7-2.4) mg/dl Total Bilirubin (0.2-1.0) mg/dl Direct Bilirubin (0-0.2) mg/dl AST (13-39) U/L ALT (7-52) U/L Alkaline Phosphatase (34-104) U/L Troponin I High Sens (0-20) pg/ml Total Protein (6.0-8.3) gm/dl Albumin (3.4-5.0) gm/dl Procalcitonin (0-0.5) ng/ml Urine Color Urine Appearance (Clear) Urine pH (4.5-7.5) Ur Specific [place] (1.000-1.030) Urine Protein (Negative) Urine Glucose (UA) (Negative) Urine Ketones (Negative) Urine Blood (Negative) Urine Nitrite (Negative) Urine Bilirubin (Negative) Urine Urobilinogen (Negative) Ur Leukocyte Esterase (Negative) Urine WBC (Auto) (0-5) /hpf Urine RBC (Auto) (0-4) /hpf U Hyaline Cast (Auto) (0-5) /lpf U Epithel Cells (Auto) (0-5) /lpf Urine Bacteria (Auto) (Negative) Fluid Comment SARS-CoV-2, RNA, NAAT NEGATIVE (NEGATIVE) 09/05/22 Range/Units 14:41 WBC (4.8-10.8) K/ul RBC (4.70-6.10) M/uL Hgb (14.0-18.0) g/dl Hct (42.0-52.0) % MCV (80.0-100.0) fL MCH (25.0-34.0) pg MCHC (32.0-36.0) g/dL RDW Std Deviation (36.4-46.3) fL RDW Coeff of [place]ron (11.5-14.5) % Plt Count (130-400) K/uL MPV (9.4-12.4) fL Immature Gran % (Auto) % Neut % (Auto) % Lymph % (Auto) % [place] % (Auto) % Eos % (Auto) % Baso % (Auto) % Neut # (Auto) (1.40-6.50) K/uL Lymph # (Auto) (1.2-3.4) K/uL [place] # (Auto) (0.11-0.59) K/uL Eos # (Auto) (0-0.50) K/uL Baso # (Auto) (0-0.2) K/uL Immature Gran # (Auto) (0.01-0.20) K/uL Absolute Nucleated RBC (0-0.12) K/uL Nucleated RBC % (auto) % PT (9.0-12.0) Seconds INR (0.9-1.1) APTT (21.0-31.0) Seconds PTT Ratio VBG pH (7.36-7.41) VBG pCO2 (38-50) mmHg VBG pO2 mmHg VBG HCO3 mmol/L VBG O2 Saturation % VBG Base Excess mEq/L Sodium (136-145) mmol/L Potassium (3.5-5.1) mmol/L Chloride (98-107) mmol/L Carbon Dioxide (21-32) mmol/L Anion Gap (3-11) BUN (6-23) mg/dl Creatinine (0.6-1.4) mg/dl Est Cr Clr Drug Dosing ml/min Est GFR ( Amer) ml/min Est GFR (Non-Af Amer) ml/min BUN/Creatinine Ratio (10-20) Glucose (70-99(Fasting)) mg/dl Lactate 2.9 H* (0.4-2.0) mmol/L Calcium (8.6-10.3) mg/dl Magnesium (1.7-2.4) mg/dl Total Bilirubin (0.2-1.0) mg/dl Direct Bilirubin (0-0.2) mg/dl AST (13-39) U/L ALT (7-52) U/L Alkaline Phosphatase (34-104) U/L Troponin I High Sens (0-20) pg/ml Total Protein (6.0-8.3) gm/dl Albumin (3.4-5.0) gm/dl Procalcitonin (0-0.5) ng/ml Urine Color Urine Appearance (Clear) Urine pH (4.5-7.5) Ur Specific [place] (1.000-1.030) Urine Protein (Negative) Urine Glucose (UA) (Negative) Urine Ketones (Negative) Urine Blood (Negative) Urine Nitrite (Negative) Urine Bilirubin (Negative) Urine Urobilinogen (Negative) Ur Leukocyte Esterase (Negative) Urine WBC (Auto) (0-5) /hpf Urine RBC (Auto) (0-4) /hpf U Hyaline Cast (Auto) (0-5) /lpf U Epithel Cells (Auto) (0-5) /lpf Urine Bacteria (Auto) (Negative) Fluid Comment SARS-CoV-2, RNA, NAAT (NEGATIVE) Imaging Data Attestation: I personally reviewed and interpreted this imaging study as follows: My Impression: Chest x-ray negative. Airway clear. No pneumothorax. No consolidation. No cardiomegaly or cephalization.. No free air under the diaphragm. No fractures of the skeletal structures. Radiologist's Impression: Abdomen/Pelvis CT 09/05/22 11:[address] WITH IV CONTRAST CT DOSE: 943.89 mGy.cm HISTORY: Lower abdominal pain. Diarrhea. Hypotension. TECHNIQUE: Multiaxial CT images of the abdomen and pelvis were performed following the use of intravenous contrast. A dose lowering technique was utilized adhering to the principles of ALARA. COMPARISON STUDY: Abdomen and pelvis CT 09/03/2022. FINDINGS: Mild dependent changes seen within the lung bases. A calcified granuloma within the left lower lobe. A few small foci of gas/pneumoperitoneum seen within the right upper quadrant which have improved. This is likely due to the patient's peritoneal catheter which terminates in the right lower quadrant. Otherwise, no pneumatosis. No acute fractures identified. L3-S1 posterior decompression and fusion with pedicle screws and rods. The liver, gallbladder, pancreas, spleen, and adrenal glands unremarkable. No renal or ureteral stones. No hydronephrosis. No bladder wall thickening. The right kidney remains atrophic. Bilateral renal hypo and hyperdense lesions again noted. No retroperitoneal lymphadenopathy. Calcified plaque within the normal caliber abdominal aorta. No pelvic lymphadenopathy. There is mass effect along the bladder from the distended rectum which contains a large stool ball measuring 9 x 8 cm. This is similar to the prior study. Persistent mild rectal wall thickening for the degree of distention may represent a stercoral colitis. There is mild perirectal edema. Moderate to large amount of liquid stool seen throughout the remaining colon. Colonic diverticulosis. No evidence for acute diverticulitis. No dilated loops of small bowel identified. Normal appendix. Small to moderate amount of ascites is again noted. IMPRESSION: 1. Moderate to large amount of liquid stool seen throughout the colon including a 9 x 8 cm rectal stool ball. This is similar to the prior study. 2. Mild rectal wall thickening for the degree of distention is again noted. There is also mild perirectal edema. This could represent a stercoral proctitis. 3. A few scattered foci of pneumoperitoneum seen within the upper abdomen which is likely due to the patient's peritoneal dialysis catheter. This has improved in the interval. 4. Small to moderate amount of ascites. 5. Colonic diverticulosis. No evidence for acute diverticular disc. 6. No evidence for a small bowel obstruction. ACT 112: Negative or not required by law. Electronically signed by: Marito Mcgee M.D. 09/05/2022 12:17 PM Chest X-Ray 09/05/22 11:25 XR chest 1V portable CLINICAL HISTORY: Sepsis TECHNIQUE: Single frontal radiograph of the chest was obtained. Comparison: None available at the time of this dictation. FINDINGS: No lines and tubes are seen. Calcified aortic knob is seen. The lungs are clear. No evidence of pleural effusion or pneumothorax. IMPRESSION: No acute abnormalities and in particular no radiographic evidence of pneumonia. ACT 112: Negative or not required by law. Electronically signed by: Ren Thompson M.D. 09/05/2022 11:40 AM ECG Data Attestation: I personally reviewed and interpreted this ECG as follows: Additional Comments: EKG #1 at 1131: Sinus arrhythmia with rate of 89. NM 202 QRS [address] elevation or ST depression. EKG #2 at 1433: Sinus rhythm with a rate of 57. NM 210 QRS [address] elevation or ST depression. MDM Narrative 1115: The patient was evaluated in room B2. A complete history and physical exam was performed Cardiac monitoring: An order was placed for continuous cardiac monitoring. The monitor shows a rate of 90 with sinus rhythm interpreted by me Patient arrives hypotensive. Sepsis protocols initiated. Patient is end-stage renal disease on peritoneal dialysis therefore we will judiciously give small fluid boluses. Normal saline bolus of 250 cc ordered for the patient. 1150: Patient's blood pressure improved with small normal saline 250 cc normal saline bolus. Patient's lactic acid is elevated above 4. Additional normal saline bolus of 250 cc will be given. 1224: Vital signs stable, blood pressure stable after 2 250 cc normal saline boluses. Labs show white blood cell count 9.55. Hemoglobin 12.6. VBG within normal limits. Sodium 130. Potassium 2.6. Creatinine to baseline 6.27. Lactic acid 4.7. Troponin elevated at 45.6, patient not reporting chest pain most likely elevated secondary to patient's end-stage renal disease. CT of the abdomen pelvis shows moderate to large amount of liquid stool with a centimeter rectal stool ball with mild wall rectal thickening associated with perirectal edema associated with sterile coral proctitis. There is a few small scattered foci of pneumoperitoneum seen within the upper abdomen which is likely due to the patient's peritoneal dialysis catheter. Small amount of ascites. Patient does do peritoneal dialysis. Patient has no peritoneal signs however bacterial peritonitis and infected peritoneal fluid could be causing the patient's pain. Discussed the case with nephrology Dr. Cordova. The patient confirms that he does have peritoneal dialysate 2500 cc in him at this time and at the time of the CT scan. 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 Dr. Cordova states to hold the dialysis today. He wants the peritoneal dialysis fluid to be analyzed and states he is going to see if a nurse can come down and evaluate the patient to remove some peritoneal dialysis fluid to analyze it. 1249: Vital signs stable. Dr. Cordova states his nurse will be down to pull off some peritoneal fluid to conduct studies on it. He states he will place the orders for the peritoneal dialysis fluid studies that he wants done. He states he will hold dialysis today. He states it is okay to start antibiotics empirically for sepsis after the patient's peritoneal fluid is pulled. No intraperitoneal antibiotics at this time. He recommends given the patient's K- Dur 40 mill equivalents p.o. Enemas ordered for the patient. Patient will be admitted to the hospitalist team Ab. Impression & Plan Sepsis, Stercoral colitis Discharge Plan Visit Data Chief Complaint: GI Assessment Stated Complaint: MIGHT STILL HAVE BLOCKAGE IN BOWEL ED Provider: Lico Og Discharge Problem: Sepsis, Stercoral colitis Patient Disposition: Admitted As Inpatient Discharge Instructions Interventions: ED Discharge Assessment Last Done: 09/05/22 16:33 Prescriptions Prescriptions: No Action latanoprost 0.005 % drops 1 drp OPB HS allopurinol 100 mg tablet 200 mg PO QAM triamcinolone acetonide 0.1 % ointment 1 applic TOPICAL DIRECTED PRN (Reason: Skin Irritation) tramadol 50 mg tablet 50 - 100 mg PO Q6H PRN (Reason: Pain) potassium chloride 20 mEq tablet,ER particles/crystals 20 meq PO .EVERY OTHER DAY metoprolol succinate 25 mg tablet extended release 24 hr 12.5 mg PO QAM torsemide 100 mg tablet 100 mg PO DAILY atorvastatin 40 mg Tablet 40 mg PO QAM Qty: 30 0RF aspirin 81 mg Tablet,Delayed Release (Dr/Ec) 81 mg PO QAM Qty: 30 1RF [place] 0.8 mg tablet 1 tab PO DAILY sevelamer carbonate 800 mg tablet 800 mg PO TID
[2022-09-05 17:08] LABS: Appearance Peritoneal Fluid Clear; Color Peritoneal Fluid Straw; RBC Peritoneal Fluid Auto < 2000 /uL; WBC Peritoneal Fluid Auto 14 /ul (0-300)
[2022-09-05] MEDS: SEVELAMER HCL 800 MG TABLET PO SCH (17:24)
[2022-09-05 17:40] LABS: Eosinophils, Fluid 4 %; Lymphocytes, Fluid 28 %; Mono,Macrophage,Mesothelial 60 %; Neutrophils, Fluid 8 %
[2022-09-05] MEDS: POTASSIUM CHLORIDE CRTAB 20 MEQ TABCR PO SCH (18:27)
[2022-09-05] MEDS: LATANOPROST 0.005% OP SOLN 2.5 ML BTL OPB SCH (20:45)
[2022-09-05] MEDS: PIPERACILLIN/TAZOBACTAM 4.5 GM in DEXTROSE 5% 100 ML IV SCH (20:45)
[2022-09-06 06:38] LABS: Hemoglobin 11.4 g/dl (14.0-18.0); Mean Corpuscular Hemoglobin 33.1 pg (25.0-34.0); Mean Corpuscular Hgb Conc 34.5 g/dL (32.0-36.0); Mean Corpuscular Volume 95.9 fL (80.0-100.0); Mean Platelet Volume 9.3 fL (9.4-12.4); Platelet Count 307 K/uL (130-400); RDW Coefficient of Variation 16.4 % (11.5-14.5); RDW Standard Deviation 57.5 fL (36.4-46.3); Red Blood Count 3.44 M/uL (4.70-6.10); White Blood Count 8.46 K/ul (4.8-10.8)
[2022-09-06 07:07] LABS: BUN Creatinine Ratio 8.7 (10-20); Calcium 8.4 mg/dl (8.6-10.3); Creatinine Clr Calc Pharmacy 9.9 ml/min; Est GFR (African American) 10.6 ml/min; Est GFR (Non-African American) 9.2 ml/min; Potassium 3.1 mmol/L (3.5-5.1)
[2022-09-06] MEDS: PIPERACILLIN/TAZOBACTAM 4.5 GM in DEXTROSE 5% 100 ML IV SCH ×2 (07:41→20:18)
[2022-09-06] MEDS: SEVELAMER HCL 800 MG TABLET PO SCH ×3 (07:42→17:07)
[2022-09-06] MEDS: ASPIRIN 81 MG ECTAB PO SCH (08:39)
[2022-09-06] MEDS: allopurinoL 100 MG TAB PO SCH (08:39)
[2022-09-06] MEDS: ATORVASTATIN 40 MG TAB PO SCH (08:39)
[2022-09-06] MEDS: DOCUSATE SODIUM/SENNA 50/8.6MG TAB PO SCH (08:39)
[2022-09-06] MEDS: NEPHROCAPS PO SCH (08:39)
[2022-09-06] MEDS ORDERED: DOCUSATE SODIUM/SENNA 50/8.6MG TAB PO SCH (09:00)
--- NOTE | 2022-09-06 09:45 | Gastrointestinal Consultation ---
Date of Consultation September 06, 2022 Assessment & Plan (1) Constipation: Pleasant elderly man with chronic OIC that has been difficult to control. He has a rectal stool ball with evidence of stercoral proctitis on CT scan. I think I will start by giving him a colonoscopy prep to hopefully get the stool ball out. He actually says he wants to try that. Afterwards he can try to maintain control with miralax and sennokot. Any pharmaceutical treatments would have to be approved by renal so I request they tell us which ones are safe in dialysis patients. History of Present Illness Reason for Consultation: constipation Attending Physician: Leonides Reyes MD History of Present Illness 77 year old man with chronic OIC. He was admitted with "sepsis" and found to have large amount of liquid stool in his colon and a 9 cm stool ball in his rectum. He is taking miralax twice daily as an outpatient for his bowel movements but has only been on it two days. He is also taking sennokot. He has had five previous colonoscopies with the last being five years ago with "nothing serious found". He tells me he leaks a little liquid stool every 10-15 minutes during the day but never has a good bowel movement. He is on tramadol for his back. He sees no blood in his stool. He doesn't have much in the way of abdominal pain but is tender when his belly is pressed on. Allergies Allergy/AdvReac Type Severity Reaction Status Date / Time No Known Allergies Allergy Verified 09/03/22 13:55 Home Medications Medication Instructions Recorded Confirmed Type allopurinol 100 mg tablet 200 mg PO QAM 03/23/21 09/05/22 History latanoprost 0.005 % eye drops 1 drp OPB HS 03/23/21 09/05/22 History triamcinolone acetonide 0.1 % 1 applic topical DIRECTED PRN 03/23/21 09/05/22 History topical ointment Skin Irritation torsemide 100 mg tablet 100 mg PO DAILY 05/26/22 09/05/22 History aspirin 81 mg tablet,delayed 81 mg PO QAM #30 tabs 05/30/22 09/05/22 Rx release atorvastatin 40 mg tablet 40 mg PO QAM #30 tabs 05/30/22 09/05/22 Rx metoprolol succinate 25 mg 12.5 mg PO QAM 09/03/22 09/05/22 History tablet,extended release 24 hr potassium chloride 20 mEq 20 meq PO .EVERY OTHER DAY 09/03/22 09/05/22 History tablet,extended release(part/cryst) tramadol 50 mg tablet 50 - 100 mg PO Q6H PRN Pain 09/03/22 09/05/22 History sevelamer carbonate 800 mg tablet 800 mg PO TID 09/05/22 09/05/22 History vitamin B complex-vitamin C-folic 1 tab PO DAILY 09/05/22 09/05/22 History acid 0.8 mg tablet (Belinda-Moose) Patient History Medical History Anemia of renal disease Constipation due to opioid therapy ESRD (end stage renal disease) on dialysis Peritoneal dialysis Glaucoma Gout History of nephrolithiasis HLD (hyperlipidemia) HTN (hypertension) Lumbar stenosis with neurogenic claudication Prostate cancer Spondylolisthesis of lumbar region Stercoral colitis Type 2 diabetes, diet controlled Surgical History History of lumbar fusion Hx of cataract extraction Hx of colonoscopy Hx of prostatectomy robotic assisted retropubic 2013 Family History Mother , at 88 Stroke Father , in 60s Heart disease Social History Smoking Status: Never smoker Tobacco Type: Smokeless Tobacco (Dip or Chew) Second Hand Exposure: No; Do You Dip or Chew Tobacco: Yes (1/2 can per day); Tobacco Cessation Education Requested by Patient: No Hx Alcohol Use: No Hx Substance Use: No Preferred Language: Thai Communication Ability: Effective Hearing Ability: Hard of Hearing Neurology Technologist Required: No Beliefs That Will Affect Care: None marital status: Current Living Situation: Spouse Feels Safe at Home: Yes Assistive Devices: Cane Review of Systems Review of Systems: All systems reviewed & are unremarkable except as noted in HPI & below Results & Data Vital Signs (Past 12 Hours) Vital Signs Temp Pulse Pulse Pulse Resp BP BP 09/06/22 08:25 36.3 C L 69 20 108/66 09/06/22 07:26 72 09/06/22 04:00 36.5 C 81 18 118/79 09/05/22 22:39 72 09/06/22 00:31 09/05/22 23:00 36.5 C 64 18 109/71 Pulse Ox O2 Del Method 09/06/22 08:25 99 Room Air 09/06/22 07:26 09/06/22 04:00 98 Room Air 09/05/22 22:39 09/06/22 00:31 Room Air 09/05/22 23:00 98 Room Air Laboratory Results Laboratory Results WBC 8.46 K/ul (4.8-10.8) 09/06/22 05:34 RBC 3.44 M/uL (4.70-6.10) L 09/06/22 05:34 Hgb 11.4 g/dl (14.0-18.0) L 09/06/22 05:34 Hct 33.0 % (42.0-52.0) L 09/06/22 05:34 MCV 95.9 fL (80.0-100.0) 09/06/22 05:34 MCH 33.1 pg (25.0-34.0) 09/06/22 05:34 MCHC 34.5 g/dL (32.0-36.0) 09/06/22 05:34 RDW Std Deviation 57.5 fL (36.4-46.3) H 09/06/22 05:34 RDW Coeff of [place] 16.4 % (11.5-14.5) H 09/06/22 05:34 Plt Count 307 K/uL (130-400) 09/06/22 05:34 MPV 9.3 fL (9.4-12.4) L 09/06/22 05:34 Immature Gran % (Auto) 0.6 % 09/05/22 11:31 Neut % (Auto) 81.6 % 09/05/22 11:31 Lymph % (Auto) 10.9 % 09/05/22 11:31 [place] % (Auto) 6.0 % 09/05/22 11:31 Eos % (Auto) 0.6 % 09/05/22 11:31 Baso % (Auto) 0.3 % 09/05/22 11:31 Neut # (Auto) 7.79 K/uL (1.40-6.50) H 09/05/22 11:31 Lymph # (Auto) 1.04 K/uL (1.2-3.4) L 09/05/22 11:31 [place] # (Auto) 0.57 K/uL (0.11-0.59) 09/05/22 11:31 Eos # (Auto) 0.06 K/uL (0-0.50) 09/05/22 11:31 Baso # (Auto) 0.03 K/uL (0-0.2) 09/05/22 11:31 Immature Gran # (Auto) 0.06 K/uL (0.01-0.20) 09/05/22 11:31 Absolute Nucleated RBC 0.02 K/uL (0-0.12) 09/05/22 11:31 Nucleated RBC % (auto) 0.2 % 09/05/22 11:31 PT 11.1 Seconds (9.0-12.0) 09/05/22 11:31 INR 1.0 (0.9-1.1) 09/05/22 11:31 APTT 27.2 Seconds (21.0-31.0) 09/05/22 11:31 PTT Ratio 1.0 09/05/22 11:31 VBG pH 7.46 (7.36-7.41) H 09/05/22 12:10 VBG pCO2 40 mmHg (38-50) 09/05/22 12:10 VBG pO2 29 mmHg 09/05/22 12:10 VBG HCO3 28 mmol/L 09/05/22 12:10 VBG O2 Saturation < 60.0 % 09/05/22 12:10 VBG Base Excess 4.2 mEq/L 09/05/22 12:10 Sodium 131 mmol/L (136-145) L 09/06/22 05:34 Potassium 3.1 mmol/L (3.5-5.1) L 09/06/22 05:34 Chloride 92 mmol/L (98-107) L 09/06/22 05:34 Carbon Dioxide 26 mmol/L (21-32) 09/06/22 05:34 Anion Gap 13 (3-11) H 09/06/22 05:34 BUN 48 mg/dl (6-23) H 09/06/22 05:34 Creatinine 5.54 mg/dl (0.6-1.4) H* D 09/06/22 05:34 Est Cr Clr Drug Dosing 9.9 ml/min 09/06/22 05:34 Est GFR ( Amer) 10.6 ml/min 09/06/22 05:34 Est GFR (Non-Af Amer) 9.2 ml/min 09/06/22 05:34 BUN/Creatinine Ratio 8.7 (10-20) L 09/06/22 05:34 Glucose 130 mg/dl (70-99(Fasting)) H 09/06/22 05:34 POC Glucose 111 mg/dl (70-99) H 09/05/22 16:53 Lactate 2.9 mmol/L (0.4-2.0) H* 09/05/22 14:41 Calcium 8.4 mg/dl (8.6-10.3) L 09/06/22 05:34 Magnesium 2.2 mg/dl (1.7-2.4) 09/05/22 11:31 Total Bilirubin 0.4 mg/dl (0.2-1.0) 09/05/22 11:31 Direct Bilirubin 0.1 mg/dl (0-0.2) 09/05/22 11:31 AST 22 U/L (13-39) 09/05/22 11:31 ALT 21 U/L (7-52) 09/05/22 11:31 Alkaline Phosphatase 91 U/L (34-104) 09/05/22 11:31 Troponin I High Sens 45.6 pg/ml (0-20) H 09/05/22 11:31 Total Protein 7.5 gm/dl (6.0-8.3) 09/05/22 11:31 Albumin 3.7 gm/dl (3.4-5.0) 09/05/22 11:31 Procalcitonin 0.50 ng/ml (0-0.5) 09/05/22 11:31 Urine Color 09/05/22 13:55 Urine Appearance (Clear) 09/05/22 13:55 Urine pH (4.5-7.5) 09/05/22 13:55 Ur Specific [place] (1.000-1.030) 09/05/22 13:55 Urine Protein (Negative) 09/05/22 13:55 Urine Glucose (UA) (Negative) 09/05/22 13:55 Urine Ketones (Negative) 09/05/22 13:55 Urine Blood (Negative) 09/05/22 13:55 Urine Nitrite (Negative) 09/05/22 13:55 Urine Bilirubin (Negative) 09/05/22 13:55 Urine Urobilinogen (Negative) 09/05/22 13:55 Ur Leukocyte Esterase (Negative) 09/05/22 13:55 Urine WBC (Auto) /hpf (0-5) 09/05/22 13:55 Urine RBC (Auto) /hpf (0-4) 09/05/22 13:55 U Hyaline Cast (Auto) /lpf (0-5) 09/05/22 13:55 U Epithel Cells (Auto) /lpf (0-5) 09/05/22 13:55 Urine Bacteria (Auto) (Negative) 09/05/22 13:55 Fluid Neutrophils % 8 % 09/05/22 13:55 Fluid Lymphocytes % 28 % 09/05/22 13:55 Fluid Eosinophils % 4 % 09/05/22 13:55 Fluid [place] % 60 % 09/05/22 13:55 Fluid Comment 09/05/22 13:55 Peritoneal Color Straw 09/05/22 13:55 Peritoneal Appearance Clear 09/05/22 13:55 Peritoneal WBC (Auto) 14 /ul (0-300) 09/05/22 13:55 Peritoneal RBC (Auto) < 2000 /uL 09/05/22 13:55 Peritoneal Lipase < 3 U/L 09/05/22 13:55 SARS-CoV-2, RNA, NAAT NEGATIVE (NEGATIVE) 09/05/22 13:38 Impressions Abdomen/Pelvis CT 09/05/22 11:[address] WITH IV CONTRAST CT DOSE: 943.89 mGy.cm HISTORY: Lower abdominal pain. Diarrhea. Hypotension. TECHNIQUE: Multiaxial CT images of the abdomen and pelvis were performed following the use of intravenous contrast. A dose lowering technique was utilized adhering to the principles of ALARA. COMPARISON STUDY: Abdomen and pelvis CT 09/03/2022. FINDINGS: Mild dependent changes seen within the lung bases. A calcified granuloma within the left lower lobe. A few small foci of gas/pneumoperitoneum seen within the right upper quadrant which have improved. This is likely due to the patient's peritoneal catheter which terminates in the right lower quadrant. Otherwise, no pneumatosis. No acute fractures identified. L3-S1 posterior decompression and fusion with pedicle screws and rods. The liver, gallbladder, pancreas, spleen, and adrenal glands unremarkable. No renal or ureteral stones. No hydronephrosis. No bladder wall thickening. The right kidney remains atrophic. Bilateral renal hypo and hyperdense lesions again noted. No retroperitoneal lymphadenopathy. Calcified plaque within the normal caliber abdominal aorta. No pelvic lymphadenopathy. There is mass effect along the bladder from the distended rectum which contains a large stool ball measuring 9 x 8 cm. This is similar to the prior study. Persistent mild rectal wall thickening for the degree of distention may represent a stercoral colitis. There is mild perirectal edema. Moderate to large amount of liquid stool seen throughout the remaining colon. Colonic diverticulosis. No evidence for acute diverticulitis. No dilated loops of small bowel identified. Normal appendix. Small to moderate amount of ascites is again noted. IMPRESSION: 1. Moderate to large amount of liquid stool seen throughout the colon including a 9 x 8 cm rectal stool ball. This is similar to the prior study. 2. Mild rectal wall thickening for the degree of distention is again noted. There is also mild perirectal edema. This could represent a stercoral proctitis. 3. A few scattered foci of pneumoperitoneum seen within the upper abdomen which is likely due to the patient's peritoneal dialysis catheter. This has improved in the interval. 4. Small to moderate amount of ascites. 5. Colonic diverticulosis. No evidence for acute diverticular disc. 6. No evidence for a small bowel obstruction. ACT 112: Negative or not required by law. Electronically signed by: Marito Mcgee M.D. 09/05/2022 12:17 PM Chest X-Ray 09/05/22 11:25 XR chest 1V portable CLINICAL HISTORY: Sepsis TECHNIQUE: Single frontal radiograph of the chest was obtained. Comparison: None available at the time of this dictation. FINDINGS: No lines and tubes are seen. Calcified aortic knob is seen. The lungs are clear. No evidence of pleural effusion or pneumothorax. IMPRESSION: No acute abnormalities and in particular no radiographic evidence of pneumonia. ACT 112: Negative or not required by law. Electronically signed by: Ren Thompson M.D. 09/05/2022 11:40 AM
[2022-09-06] MEDS: ACETAMINOPHEN 500 MG TAB PO PRN (10:27)
--- NOTE | 2022-09-06 11:29 | Nephrology Progress Note ---
Date of Service September 06, 2022 Assessment & Plan (1) ESRD (end stage renal disease) on dialysis: Plan: ESRD on PD -He is on manual exchanges( 2. 5 l, 1.5%,3 bags of 4 hr dwell and 1 bag of 8 hr long dwell0 -Chronic hypotension , but has been asymptomatic. -In hospital, he will be of Cycler, 4 cycles, 2.5 lit of 1.5%, 4 exchanges for a total of 10 hr.- Continue on the dame prescription today, -OK with fluid bolus if becomes symptomatic with hypotension -Continue on home medications , restart the diuretics. - Kcl 40 meq daily - Renally dose antibiotic. (2) Sepsis associated hypotension: Plan: As above -Peritoneal fluid was clear, no peritonitis.Continue with Zoysn . - Likley 2/ colitis. (3) Stercoral colitis: (4) Constipation due to opioid therapy: Admission and Anticipated Discharge Date Admission Date: September 05, 2022 Subjective Comfortable, abdominal pain better.UOP has decreased. Review of Systems Review of Systems: All systems reviewed & are unremarkable except as noted in HPI & below Physical Exam Physical Exam: General:NAD, appears older than stated age Eyes: anicteric sclera, no conjunctival injection Neck:supple, trachea midline CV:RRR, S1 S2, no m/r/g Pulm:CTA b/l Abd/GI:+ BS, soft, tender to minimal palpation RLQ > suprabubic area, ND, no guarding Ext:no pretibial edema Results & Data Vital Signs (Past 12 Hours) Vital Signs Temp Pulse Pulse Resp BP BP Pulse Ox 09/06/22 07:45 09/06/22 08:25 36.3 C L 69 20 108/66 99 09/06/22 07:26 72 09/06/22 04:00 36.5 C 81 18 118/79 98 09/06/22 00:31 O2 Del Method 09/06/22 07:45 Room Air 09/06/22 08:25 Room Air 09/06/22 07:26 09/06/22 04:00 Room Air 09/06/22 00:31 Room Air Laboratory Results 09/06/22 05:34 09/06/22 05:34
[2022-09-06] MEDS: TORSEMIDE 100 MG TAB PO SCH (11:53)
[2022-09-06] MEDS: HEPARIN SOD 5,000 UNIT/0.5 ML VIAL SC SCH ×2 (13:29→22:47)
--- NOTE | 2022-09-06 14:54 | Hospitalist Progress Note ---
Date of Service September 06, 2022 Assessment & Plan (1) Sepsis associated hypotension: Plan: improved with 250 ml bolus x 2. Patient states he always has low blood pressure due to his dialysis. At this point, it is unclear if pt truly has sepsis of infectious etiology vs SIRS of non-infectious etiology, but will continue empiric IV abx until final culture results. Patient remains afebrile and without leukocytosis, procalcitonin negative No evidence of infection on chest x-ray or CT abdomen pelvis except for stercoral proctitis with stool ball in CT Follow-up on final blood and peritoneal fluid cultures for further antibiotic management (2) ESRD (end stage renal disease) on dialysis: Plan: does peritoneal dialysis 4x per day small amount of pneumoperitoneum d/t PD PD per nephrology (3) Stercoral colitis: Plan: CT A/P shows 1. Moderate to large amount of liquid stool seen throughout the colon including a 9 x 8 cm rectal stool ball. This is similar to the prior study. 2. Mild rectal wall thickening for the degree of distention is again noted. There is also mild perirectal edema. This could represent a stercoral proctitis. 3. A few scattered foci of pneumoperitoneum seen within the upper abdomen which is likely due to the patient's peritoneal dialysis catheter. This has improved in the interval. 4. Small to moderate amount of ascites. 5. Colonic diverticulosis. No evidence for acute diverticular disc. 6. No evidence for a small bowel obstruction. Continue empiric Zosyn. Other management as below (4) Constipation due to opioid therapy: Plan: d/t chronic opioid induced constipation responded well to Milk of magnesia but this had to be d/c d/t renal function. He tried Miralax without improvement. Lactulose worked "too well" and causes uncontrollable diarrhea persistent stool ball despite tx with enemas Seen by GI-planning for bowel prep but awaiting nephrology input given his dialysis. I have relayed GI concerns to nephrology. (5) Type 2 diabetes, diet controlled: Plan: previously on metformin, now diet controlled diabetic diet, SSI prn (6) Stroke: Plan: no new deficits completed 21 days of DAPT continue ASA daily (7) Anemia of renal disease: Plan: h/h 12.6/35.1 , at baseline (8) HLD (hyperlipidemia): Plan: continue statin therapy (9) HTN (hypertension): Plan: well controlled, continue home metoprolol and torsemide with hold parameters (10) Gout: Plan: no complaints at this time. continue allopurinol (11) Lumbar stenosis with neurogenic claudication: Plan: continue Tramadol (12) Hypokalemia: Plan: Repleted. Recheck in a.m. (13) Hyponatremia: Plan: Mild, recheck in a.m. Plan DVT prophylaxis-subcu heparin Disposition-pending Admission and Anticipated Discharge Date Admission Date: September 05, 2022 Subjective Patient was seen and examined at bedside. He complains of ongoing overflow incontinence and would like it to be fixed. He would like to try bowel prep as suggested by GI, awaiting nephrology input given his dialysis status. Has mild pain in right lower abdomen. Denies fever, chills, chest pain, cough, cold, URI symptoms, nausea or vomiting. He makes little urine but denies any dysuria. Review of Systems Review of Systems: All systems reviewed & are unremarkable except as noted in Subjective Physical Exam Physical Exam: General: Lying comfortably in bed, not in distress, on room air HEENT: EOMI, VICTOR MANUEL, MMM Chest: Clear breath sounds bilaterally, no wheezes or crackles CVS: Regular rate and rhythm, normal heart sounds, no murmur Abdomen: Soft, mild tenderness right lower quadrant, not distended, normal bowel sounds. Peritoneal dialysis catheter in situ-no signs of infection, no evidence of generalized peritonitis. Neuro: Awake, alert, oriented, conversing well, non focal Extremities: No cyanosis, clubbing or edema Results & Data Results & Data Vital Signs (Past 12 Hours) Vital Signs Temp Pulse Pulse Resp BP BP Pulse Ox 09/06/22 11:48 36.3 C L 62 18 133/76 100 09/06/22 07:45 09/06/22 08:25 36.3 C L 69 20 108/66 99 09/06/22 07:26 72 09/06/22 04:00 36.5 C 81 18 118/79 98 O2 Del Method 09/06/22 11:48 Room Air 09/06/22 07:45 Room Air 09/06/22 08:25 Room Air 09/06/22 07:26 09/06/22 04:00 Room Air Laboratory Results Short CBC 09/06/22 Range/Units 05:34 WBC 8.46 (4.8-10.8) K/ul Hgb 11.4 L (14.0-18.0) g/dl Hct 33.0 L (42.0-52.0) % Plt Count 307 (130-400) K/uL BMP 09/06/22 05:34 Sodium 131 L Potassium 3.1 L Chloride 92 L Carbon Dioxide 26 BUN 48 H Creatinine 5.54 H* D Glucose 130 H Calcium 8.4 L Urine 09/05/22 Range/Units 13:55 Urine Color Urine Appearance (Clear) Urine pH (4.5-7.5) Ur Specific [place] (1.000-1.030) Urine Protein (Negative) Urine Glucose (UA) (Negative) Medications Administered Current Inpatient Medications Acetaminophen (Acetaminophen 500 Mg Tab) 1,000 mg PO Q8H PRN PRN Reason: pain/fever Stop: 10/05/22 13:55 Last Admin: 09/06/22 10:27 Dose: 1,000 mg Allopurinol (Allopurinol 100 Mg Tab) 200 mg PO [facility] Stop: 10/06/22 08:59 Last Admin: 09/06/22 08:39 Dose: 200 mg Aspirin (Aspirin 81 Mg Ectab) 81 mg PO [facility] Stop: 10/06/22 08:59 Last Admin: 09/06/22 08:39 Dose: 81 mg Atorvastatin Calcium (Atorvastatin 40 Mg Tab) 40 mg PO [facility] Stop: 10/06/22 08:59 Last Admin: 09/06/22 08:39 Dose: 40 mg Heparin Sodium (Porcine) (Heparin Sod 5,000 Unit/0.5 Ml Vial) 5,000 units SC Q8 [facility] Stop: 10/06/22 13:59 Last Admin: 09/06/22 13:29 Dose: 5,000 units Piperacillin Sod/Tazobactam (Sod 4.5 gm/ Dextrose) 120 mls @ 30 mls/hr IV Q12H [facility]; Protocol Stop: 09/07/22 19:59 Last Infusion: 09/06/22 11:42 Dose: Infused Latanoprost (Latanoprost 0.005% Op Soln 2.5 Ml Btl) 1 drops OPB HS [facility] Stop: 10/05/22 20:59 Last Admin: 09/05/22 20:45 Dose: 1 drops Ondansetron HCl (Ondansetron Inj 2 Mg/Ml 2 Ml Vial) 4 mg IV Q6H PRN PRN Reason: Nausea Stop: 10/05/22 13:55 Polyethylene Glycol (Polyethylene (Miralax) 17 Gm Pack) 17 gm PO DAILY PRN PRN Reason: Constipation Stop: 10/05/22 13:55 Last Admin: 09/06/22 08:38 Dose: 17 gm Potassium Chloride (Potassium Chloride Crtab 20 Meq Tabcr) 20 meq PO Q2D@0900 [facility] Stop: 10/05/22 15:14 Last Admin: 09/05/22 18:27 Dose: 20 meq Senna/Docusate Sodium (Docusate Sodium/Senna 50/8.6mg Tab) 1 tab PO QAM [facility] Stop: 10/06/22 08:59 Last Admin: 09/06/22 08:39 Dose: 1 tab Sevelamer HCl (Sevelamer Hcl 800 Mg Tablet) 800 mg PO TIDM [facility] Stop: 10/05/22 16:59 Last Admin: 09/06/22 11:53 Dose: Not Given Torsemide (Torsemide 100 Mg Tab) 100 mg PO QAM [facility] Stop: 10/06/22 11:29 Last Admin: 09/06/22 11:53 Dose: 100 mg Tramadol HCl (Tramadol Hcl 50 Mg Tablet) 50 mg PO Q4H PRN PRN Reason: Moderate Pain (Scale 4, 5, 6) Stop: 10/05/22 15:11 Last Admin: 09/06/22 13:28 Dose: 50 mg Triamcinolone Acetonide (Triamcinolone Acet 0.1% Oint 15 Gm Tube) 1 appln TOP UD PRN PRN Reason: Skin Irritation Stop: 10/05/22 15:06 Vitamin B Complex/Folic Acid (Nephrocaps) 1 cap PO DAILY [facility] Stop: 10/06/22 08:59 Last Admin: 09/06/22 08:39 Dose: 1 cap
[2022-09-06] MEDS ORDERED: POTASSIUM CHLORIDE CRTAB 20 MEQ TABCR PO ONE (15:08)
[2022-09-06] MEDS: LINACLOTIDE 145 MCG CAPSULE PO SCH (17:07)
[2022-09-06] MEDS: LATANOPROST 0.005% OP SOLN 2.5 ML BTL OPB SCH (20:19)
[2022-09-07] MEDS: HEPARIN SOD 5,000 UNIT/0.5 ML VIAL SC SCH ×3 (06:15→22:29)
[2022-09-07] MEDS: PIPERACILLIN/TAZOBACTAM 4.5 GM in DEXTROSE 5% 100 ML IV SCH (08:30)
[2022-09-07] MEDS: ASPIRIN 81 MG ECTAB PO SCH (08:58)
[2022-09-07] MEDS: POTASSIUM CHLORIDE CRTAB 20 MEQ TABCR PO SCH (08:58)
[2022-09-07] MEDS: TORSEMIDE 100 MG TAB PO SCH (08:58)
[2022-09-07] MEDS: DOCUSATE SODIUM/SENNA 50/8.6MG TAB PO SCH (08:58)
[2022-09-07] MEDS: NEPHROCAPS PO SCH (08:58)
[2022-09-07] MEDS: LINACLOTIDE 145 MCG CAPSULE PO SCH (08:58)
[2022-09-07] MEDS: ATORVASTATIN 40 MG TAB PO SCH (08:59)
[2022-09-07] MEDS: allopurinoL 100 MG TAB PO SCH (08:59)
[2022-09-07] MEDS: SEVELAMER HCL 800 MG TABLET PO SCH ×3 (08:59→16:59)
--- NOTE | 2022-09-07 09:17 | Gastroenterology Progress Note ---
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 Thank you for allowing us to participate in the care of this patient. Please call with any acute changes, questions or concerns. Please see addendum below with additional recommendation from my supervising physician. Admission and Anticipated Discharge Date Admission Date: September 05, 2022 Supervising Physician Co-Signing Physician Notes I have seen and examined the patient with JACOBO Fernandez whose note reflects our findings and plan. Subjective Feeling well. No abd pain. Moved large amounts of stools, mixed liquid and formed. No black or bloody stools. Is asking for a repeat KUB as he wants to go home but is fearful he may have some impaction still. No rectal pain. Review of Systems Review of Systems: All systems reviewed & are unremarkable except as noted in HPI & below Physical Exam Constitutional: WD/WN, vitals as above Respiratory: normal respiratory effort, lungs clear to auscultation Cardiovascular: Rate/Rhythm: regular rate Gastrointestinal (Abdomen): normal bowel sounds, soft, nontender, no hepatosplenomegaly Skin: no rashes, warm and dry Results & Data Vital Signs (Past 12 Hours) Vital Signs Temp Pulse Pulse Resp BP Pulse Ox O2 Del Method 09/07/22 08:05 78 09/07/22 03:09 36.4 C L 88 18 121/77 94 Room Air 09/06/22 23:48 90 09/06/22 23:19 Room Air 09/06/22 23:08 36.7 C 84 18 110/73 96 Room Air
[2022-09-07 11:02] LABS: Hematocrit (blood only) 35.1 % (42.0-52.0); Hemoglobin 12.3 g/dl (14.0-18.0); Mean Corpuscular Hemoglobin 33.4 pg (25.0-34.0); Mean Corpuscular Volume 95.4 fL (80.0-100.0); Mean Platelet Volume 9.1 fL (9.4-12.4); Platelet Count 341 K/uL (130-400); RDW Coefficient of Variation 16.3 % (11.5-14.5); RDW Standard Deviation 57.4 fL (36.4-46.3); Red Blood Count 3.68 M/uL (4.70-6.10); White Blood Count 8.27 K/ul (4.8-10.8)
[2022-09-07 11:17] LABS: Albumin Globulin Ratio 0.9 (0.9-2); Albumin Level 3.2 gm/dl (3.4-5.0); BUN Creatinine Ratio 8.6 (10-20); Bilirubin,Total 0.4 mg/dl (0.2-1.0); Calcium 8.7 mg/dl (8.6-10.3); Creatinine Clr Calc Pharmacy 10.6 ml/min; Est GFR (African American) 11.2 ml/min; Est GFR (Non-African American) 9.6 ml/min; Globulin 3.5 gm/dl (2.5-4.0); Magnesium 2.1 mg/dl (1.7-2.4); Phosphorus 4.2 mg/dl (2.5-4.9); Potassium 3.4 mmol/L (3.5-5.1); Total Protein 6.7 gm/dl (6.0-8.3)
--- NOTE | 2022-09-07 11:51 | Hospitalist Progress Note ---
Date of Service September 07, 2022 Assessment & Plan (1) Stercoral colitis: (2) Constipation due to opioid therapy: Plan: Presented with abd pain, constipation and had low BP BP improved with 250 ml bolus x 2. Patient states he always has low blood pressure due to his dialysis. Patient has been on empirical antibiotics Patient remains afebrile and without leukocytosis, procalcitonin negative Blood cultures and PD culture are negative so far CT A/P shows 1. Moderate to large amount of liquid stool seen throughout the colon including a 9 x 8 cm rectal stool ball. This is similar to the prior study. 2. Mild rectal wall thickening for the degree of distention is again noted. There is also mild perirectal edema. This could represent a stercoral proctitis. 3. A few scattered foci of pneumoperitoneum seen within the upper abdomen which is likely due to the patient's peritoneal dialysis catheter. This has improved in the interval. 4. Small to moderate amount of ascites. 5. Colonic diverticulosis. No evidence for acute diverticular disc. 6. No evidence for a small bowel obstruction. Based on my review of results so far and discussion with patient, Sepsis is unlikely Stop zosyn and monitor Chronic opioid induced constipation Per history, responded well to Milk of magnesia but this had to be d/c d/t renal function. Lactulose worked "too well" and causes uncontrollable diarrhea Persistent stool ball despite tx with enemas GI evaluation noted. Had bowel prep Has been having multiple BM since yesterday per patient Will get KUB today Will need to be on Miralax 1-2x daily per GI (3) ESRD (end stage renal disease) on dialysis: Plan: Does peritoneal dialysis 4x per day Small amount of pneumoperitoneum d/t PD PD per nephrology (4) Type 2 diabetes, diet controlled: Plan: Previously on metformin, now diet controlled (5) Stroke: Plan: No new deficits completed 21 days of DAPT continue ASA daily (6) Anemia of renal disease: Plan: Hb 12.3, at baseline (7) HLD (hyperlipidemia): Plan: Continue statin therapy (8) HTN (hypertension): Plan: Well controlled Continue home metoprolol and torsemide with hold parameters (9) Gout: Plan: no complaints at this time. continue allopurinol (10) Lumbar stenosis with neurogenic claudication: Plan: Continue Tramadol (11) Hypokalemia: Plan: Monitor and replete (12) Hyponatremia: Plan: Nephro on board Monitor Plan DVT prophylaxis-subcu heparin I spent a total of 45 minutes coordinating, documenting and providing care for this patient excluding time spent in performance of separately billed services Admission and Anticipated Discharge Date Admission Date: September 05, 2022 Subjective Patient seen and examined Patient reports feeling better today since he started moving bowels Reports mild abd discomfort which he reported as gas pains Reports generalized weakness which he attributed to poor intake due to constipation for weeks Denied any nausea or vomiting Denied fever, chills, dizziness Denied cough, chest pain, shortness of breath Physical Exam Constitutional: + well hydrated; no acute distress Eyes: PERRL, conjunctivae normal, anicteric sclerae ENMT: external ear and nose normal, oropharynx normal Respiratory: normal respiratory effort, lungs clear to auscultation Cardiovascular: Rate/Rhythm: regular rate S1 S2 Gastrointestinal (Abdomen): normal bowel sounds, soft, nontender, no hepatosplenomegaly PD catheter in situ Musculoskeletal: No pedal edema Neurologic: PERRL, EOMI, accommodation nl, no face palsy, no dysarthria Psychiatric: A+Ox3, euthymic affect Results & Data Results & Data Vital Signs (Past 12 Hours) Vital Signs Temp Pulse Pulse Pulse Resp BP BP 09/07/22 11:37 36.4 C L 68 17 117/71 09/07/22 07:45 09/07/22 08:35 36.3 C L 76 18 09/07/22 08:05 78 09/07/22 03:09 36.4 C L 88 18 121/77 Pulse Ox O2 Del Method 09/07/22 11:37 96 Room Air 09/07/22 07:45 Room Air 09/07/22 08:35 09/07/22 08:05 09/07/22 03:09 94 Room Air Laboratory Results Abnormal lab results 09/07/22 09/07/22 Range/Units 10:28 10:28 RBC 3.68 L (4.70-6.10) M/uL Hgb 12.3 L (14.0-18.0) g/dl Hct 35.1 L (42.0-52.0) % RDW Std Deviation 57.4 H (36.4-46.3) fL RDW Coeff of Bayron 16.3 H (11.5-14.5) % MPV 9.1 L (9.4-12.4) fL Sodium 127 L (136-145) mmol/L Potassium 3.4 L (3.5-5.1) mmol/L Chloride 89 L (98-107) mmol/L Anion Gap 12 H (3-11) BUN 46 H (6-23) mg/dl Creatinine 5.33 H* (0.6-1.4) mg/dl BUN/Creatinine Ratio 8.6 L (10-20) Glucose 108 H (70-99(Fasting)) mg/dl Albumin 3.2 L (3.4-5.0) gm/dl
--- NOTE | 2022-09-07 17:35 | XRay Report ---
XR KUB/Abdomen 1 view CLINICAL HISTORY: assess stool burden TECHNIQUE: 1 view of the abdomen was obtained. Comparison: Comparison is made to abdomen radiographs 09/03/2022 FINDINGS: A pelvic drain is seen. Degenerative changes are seen in the visualized skeleton. Posterior fixation hardware is seen in the lumbar spine. The bowel gas pattern is nonobstructive. Prominent rectal stool is again seen without evidence of inspissation. Rectal which appears to measure approximately 11 cm. IMPRESSION: Interval enlargement of rectal caliber no measuring 11 mm, although still without emmanuel inspissation. ACT 112: Negative or not required by law. Electronically signed by: Ren Thompson M.D. 09/07/2022 5:34 PM
--- NOTE | 2022-09-07 19:40 | Nephrology Progress Note ---
Date of Service September 07, 2022 Assessment & Plan (1) ESRD (end stage renal disease) on dialysis: Plan: ESRD on PD -He is on manual exchanges at home ( 2. 5 L @ 1.5%,3 bags of 4 hr dwell and 1 bag of 8 hr long dwell0 -not hypertensive generally and SBP often 100-110s as OP; 20 mg daily lasix spring 2022 intensified to 100 mg daily torsemide; sBP at baseline today and has been fairly low -held torsemide starting 09/08 -In hospital, he will be of Cycler, 4 cycles, 2.5 lit of 1.5%, 4 exchanges for a total of 10 hr.- Continue on the same prescription today, only 200 mL UF overnight but had lots of BM >>frequent stool today w/ concerns pt can contaminate PD catheter/tubing with stool >> will ask nursing to check him q 1hr overnight -OK with fluid bolus if becomes symptomatic with hypotension -Continue on home medications except for diuretics > lowered torsemide to 60 mg daily for now -continue q 2 day low dose K; else replete K prn -daily bmp (2) Stercoral colitis: Plan: no evidence of sepsis continue bowel regimen >> nephro fine with miralax regimen proposed by GI; will monitor chemistries on this (sometimes see high Ca and/or mag) (3) Constipation due to opioid therapy: Admission and Anticipated Discharge Date Admission Date: September 05, 2022 Subjective started bowel prep type constipation regimen yesterday am and non stop stools ever since. mild low ant abdominal pain. no n/v. no f/c; no sob. complains that cycler " doesn't work for him" b/c of alarming all night. 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 Review of Systems Review of Systems: All systems reviewed & are unremarkable except as noted in Subjective Physical Exam Constitutional: well developed, + thin and cooperative Eyes: EOM intact bilaterally ENMT: Ears: no external ear abnormality Nose: no external nose abnormality Mouth: + dry oral mucous membranes Neck: no nuchal rigidity Respiratory: normal respiratory effort Auscultation: + diminished lung sounds Gastrointestinal (Abdomen): Inspection/Auscultation: normal bowel sounds Percussion/Palpation: abdomen soft; abdomen nontender Musculoskeletal: Extremities: strength 5/5 throughout Skin: no rashes, warm and dry Neurologic: diego, fluent speech, no tremor Results & Data Vital Signs (Past 12 Hours) Vital Signs Temp Pulse Pulse Pulse Resp BP BP 09/07/22 17:45 36.7 C 68 18 110/65 09/07/22 16:25 36.7 C 67 18 104/64 09/07/22 15:40 66 09/07/22 11:37 36.4 C L 68 17 117/71 09/07/22 07:45 09/07/22 08:35 36.3 C L 76 18 09/07/22 08:05 78 Pulse Ox O2 Del Method 09/07/22 17:45 09/07/22 16:25 95 Room Air 09/07/22 15:40 09/07/22 11:37 96 Room Air 09/07/22 07:45 Room Air 09/07/22 08:35 09/07/22 08:05 Laboratory Results 09/07/22 10:28 09/07/22 10:28
[2022-09-07] MEDS: LATANOPROST 0.005% OP SOLN 2.5 ML BTL OPB SCH (22:29)
--- NOTE | 2022-09-07 23:12 | Electrocardiogram Report ---
Test Reason : Blood Pressure : / mmHG Vent. Rate : 089 BPM Atrial Rate : 089 BPM P-R Int : 202 ms QRS Dur : 082 ms QT Int : 392 ms P-R-T Axes : 077 -12 032 degrees QTc Int : 477 ms Normal sinus rhythm Premature atrial complexes Inferior infarct (cited on or before 29-MAY-2022) Anterior infarct , age undetermined Abnormal ECG When compared with ECG of 03-SEP-2022 10:26, Anterior infarct is now Present Questionable change in initial forces of Inferior leads Premature atrial complexes are now Present Confirmed by Julio Lima [id number]) on 09/07/2022 11:12:27 PM Referred By: Confirmed By:Julio Lima
[2022-09-08] MEDS: HEPARIN SOD 5,000 UNIT/0.5 ML VIAL SC SCH ×3 (04:59→20:22)
[2022-09-08 06:36] LABS: Hematocrit (blood only) 32.2 % (42.0-52.0); Hemoglobin 11.2 g/dl (14.0-18.0); Mean Corpuscular Hemoglobin 32.9 pg (25.0-34.0); Mean Corpuscular Hgb Conc 34.8 g/dL (32.0-36.0); Mean Corpuscular Volume 94.7 fL (80.0-100.0); Mean Platelet Volume 9.4 fL (9.4-12.4); Platelet Count 331 K/uL (130-400); RDW Coefficient of Variation 15.9 % (11.5-14.5); RDW Standard Deviation 54.4 fL (36.4-46.3); White Blood Count 6.82 K/ul (4.8-10.8)
[2022-09-08 07:02] LABS: BUN Creatinine Ratio 7.6 (10-20); Calcium 8.1 mg/dl (8.6-10.3); Creatinine Clr Calc Pharmacy 10.2 ml/min; Est GFR (African American) 11.4 ml/min; Est GFR (Non-African American) 9.8 ml/min; Phosphorus 4.4 mg/dl (2.5-4.9)
[2022-09-08] MEDS: SEVELAMER HCL 800 MG TABLET PO SCH ×3 (08:51→17:14)
[2022-09-08] MEDS: NEPHROCAPS PO SCH (08:52)
[2022-09-08] MEDS: LINACLOTIDE 145 MCG CAPSULE PO SCH (08:52)
[2022-09-08] MEDS: DOCUSATE SODIUM/SENNA 50/8.6MG TAB PO SCH (08:53)
[2022-09-08] MEDS: ASPIRIN 81 MG ECTAB PO SCH (08:53)
[2022-09-08] MEDS: ATORVASTATIN 40 MG TAB PO SCH (08:53)
[2022-09-08] MEDS: allopurinoL 100 MG TAB PO SCH (08:53)
[2022-09-08] MEDS ORDERED: POTASSIUM CHLORIDE CRTAB 20 MEQ TABCR PO SCH (09:00)
[2022-09-08] MEDS ORDERED: TORSEMIDE 10 MG TAB PO SCH (09:00)
--- NOTE | 2022-09-08 10:02 | Nephrology Progress Note ---
Date of Service September 08, 2022 Assessment & Plan (1) ESRD (end stage renal disease) on dialysis: Plan: ESRD on PD -He is on manual exchanges at home ( 2. 5 L @ 1.5%, 3 bags of 4 hr dwell and 1 bag of 8 hr long dwell) -not hypertensive generally and SBP often 100-110s as OP; 20 mg daily lasix spring 2022 intensified to 100 mg daily torsemide; SBP at baseline today and has been fairly low -lowered torsemide starting 09/08 to 60 mg daily; consider holding if he cannot maintain good bowel regimen -In hospital, he will be on Cycler, 4 cycles, 2.5 lit of 1.5%, 4 exchanges for a total of 10 hr.- Continue on the same prescription today, only 200 mL UF overnight but had lots of BM >>frequent stool today w/ concerns pt can contaminate PD catheter/tubing with stool >> will ask nursing to check him q 1hr overnight -OK with fluid bolus if becomes symptomatic with hypotension -Continue on home medications except for diuretics > had torsemide 60 mg daily this am; stopped now ocmpletely -continue q 2 day low dose K; else replete K prn > getting 40 of K IV currently and for recheck 2100 -daily bmp Care coordinated w/ Dr Ennis multiple times in the day (2) Stercoral colitis: Plan: no evidence of sepsis continue bowel regimen >> note GI recommends now q6h tap water enemas >> nephro fine with miralax regimen proposed by GI; will monitor chemistries on this (sometimes see high Ca and/or mag) >>stopped diuretics since these in conjunction w/ fluid limits as dialysis patient can worsen constipation (3) Constipation due to opioid therapy: Admission and Anticipated Discharge Date Admission Date: September 05, 2022 Subjective 8 bm overnight and constant this am per RN; pt c/o back pain after transfer for XR. no sob, no n/v. hypotensive this am and had 1/2 L NS; tx overnight also actually gave him/retained 369 mL fluid Review of Systems Review of Systems: All systems reviewed & are unremarkable except as noted in Subjective Physical Exam 2 Constitutional: well developed, + thin and cooperative Eyes: EOM intact bilaterally ENMT: Ears: no external ear abnormality Nose: no external nose abnormality Mouth: + dry oral mucous membranes Neck: no nuchal rigidity Respiratory: normal respiratory effort Auscultation: + diminished lung sounds Cardiovascular: Rate/Rhythm: + tachycardic Extremities: no edema Gastrointestinal (Abdomen): Inspection/Auscultation: normal bowel sounds Percussion/Palpation: abdomen soft; abdomen nontender Musculoskeletal: Extremities: strength 5/5 throughout Skin: no rashes, warm and dry Neurologic: diego, fluent speech Results & Data Vital Signs (Past 12 Hours) Vital Signs Temp Pulse Pulse Pulse Resp BP BP 09/08/22 08:12 36.5 C 85 17 114/72 09/08/22 08:12 36.5 C 85 17 114/72 09/08/22 03:11 36.4 C L 77 18 112/70 09/08/22 00:05 89 09/07/22 23:19 09/07/22 23:00 36.6 C 76 18 110/70 Pulse Ox O2 Del Method 09/08/22 08:12 97 Room Air 09/08/22 08:12 97 Room Air 09/08/22 03:11 96 Room Air 09/08/22 00:05 09/07/22 23:19 Room Air 09/07/22 23:00 98 Room Air Laboratory Results 09/08/22 05:42 09/08/22 05:[address] non con 1. Increase in pneumoperitoneum since CT of September 05, 2022. Although nonspecific, this is probably related to the peritoneal dialysis catheter. Small amount of peritoneal fluid, decreased since prior exam. 2. No significant change in a large stool ball within the rectum. Mild rectal wall thickening with adjacent stranding which has slightly increased. This favo rs stercoral proctitis. Moderate amount of poorly formed stool throughout remainder of the colon. 3. Interval development of fluid-filled, mildly dilated small bowel without transition point. This may reflect an ileus. A partial small bowel obstruction is considered less likely.
[2022-09-08] MEDS: POTASSIUM CHLORIDE / WTR 10 MEQ/100 ML PLCT IV SCH ×4 (10:27→19:49)
[2022-09-08] MEDS: ACETAMINOPHEN 500 MG TAB PO PRN (10:27)
--- NOTE | 2022-09-08 10:34 | Hospitalist Progress Note ---
Date of Service September 08, 2022 Assessment & Plan (1) Stercoral colitis: (2) Constipation due to opioid therapy: Plan: Presented with abd pain, constipation and had low BP BP improved with 250 ml bolus x 2. Patient states he always has low blood pressure due to his dialysis. Patient was started on empirical antibiotics on admission Patient remains afebrile and without leukocytosis, procalcitonin negative Blood cultures and PD culture are negative so far CT A/P on 09/05/22 showed Moderate to large amount of liquid stool seen throughout the colon including a 9 x 8 cm rectal stool ball, Mild rectal wall thickening for the degree of distention is again noted. There is also mild perirectal edema. This could represent a stercoral proctitis. A few scattered foci of pneumoperitoneum seen within the upper abdomen which is likely due to the patient's peritoneal dialysis catheter. This has improved in the interval. No evidence for a small bowel obstruction. Antibiotics had been stopped on 09/07/22 after 48h of empirical therapy Chronic opioid induced constipation Per history, responded well to Milk of magnesia but this had to be d/c d/t renal function. 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 Gave 500cc NSS bolus Stopped torsemide for now in view of GI losses and electrolyte abnormalities Discussed with Nephro who recommends another NSS 500cc bolus (3) ESRD (end stage renal disease) on dialysis: Plan: Does peritoneal dialysis 4x per day Pneumoperitoneum seen on CTs likely due to PD Peritoneal fluid analysis/culture negative for infection PD per nephrology (4) Type 2 diabetes, diet controlled: Plan: Previously on metformin, now diet controlled (5) Stroke: Plan: No new deficits completed 21 days of DAPT continue ASA daily (6) Anemia of renal disease: Plan: Hb 11.2 today Monitor (7) HLD (hyperlipidemia): Plan: Continue statin therapy (8) HTN (hypertension): Plan: Hypotensive today Continue home metoprolol with hold parameters Torsemide on hold as above (9) Gout: Plan: No complaints at this time. continue allopurinol (10) Lumbar stenosis with neurogenic claudication: Plan: Continue Tramadol (11) Hypokalemia: Plan: Monitor and replete (12) Hyponatremia: Plan: Nephro on board Monitor Plan DVT prophylaxis-subcu heparin I spent a total of 50 minutes coordinating, documenting and providing care for this patient excluding time spent in performance of separately billed services Admission and Anticipated Discharge Date Admission Date: September 05, 2022 Subjective Patient seen and examined Reported he was doing fine this morning without much abd discomfort until after breakfast. Reports abd pain feels like pressure in lower abdomen Denied any anal pain Has been having liquid BM, multiple times today Reports weakness Denied any cough, chest pain, SOB, vomiting Denied any fever, chills Physical Exam Constitutional: + well hydrated; no acute distress Eyes: PERRL, conjunctivae normal, anicteric sclerae ENMT: external ear and nose normal, oropharynx normal Respiratory: normal respiratory effort, lungs clear to auscultation Cardiovascular: Rate/Rhythm: regular rate Regular rhythm S1 S2 Gastrointestinal (Abdomen): Abd is not distended, soft, mild low abd tenderness, no rebound/guarding PD catheter in situ Musculoskeletal: No pedal edema Neurologic: PERRL, EOMI, accommodation nl, no face palsy, no dysarthria Psychiatric: A+Ox3, euthymic affect Results & Data Results & Data Vital Signs (Past 12 Hours) Vital Signs Temp Pulse Pulse Pulse Resp BP BP 09/08/22 08:12 36.5 C 85 17 114/72 09/08/22 08:12 36.5 C 85 17 114/72 09/08/22 03:11 36.4 C L 77 18 112/70 09/08/22 00:05 89 09/07/22 23:19 09/07/22 23:00 36.6 C 76 18 110/70 Pulse Ox O2 Del Method 09/08/22 08:12 97 Room Air 09/08/22 08:12 97 Room Air 09/08/22 03:11 96 Room Air 09/08/22 00:05 09/07/22 23:19 Room Air 09/07/22 23:00 98 Room Air Laboratory Results Abnormal lab results 09/08/22 09/08/22 09/08/22 Range/Units 05:42 05:42 14:47 RBC 3.40 L (4.70-6.10) M/uL Hgb 11.2 L (14.0-18.0) g/dl Hct 32.2 L (42.0-52.0) % RDW Std Deviation 54.4 H (36.4-46.3) fL RDW Coeff of Bayron 15.9 H (11.5-14.5) % Sodium 129 L (136-145) mmol/L Potassium 3.0 L 3.3 L (3.5-5.1) mmol/L Chloride 91 L (98-107) mmol/L BUN 40 H (6-23) mg/dl Creatinine 5.23 H* (0.6-1.4) mg/dl BUN/Creatinine Ratio 7.6 L (10-20) Glucose 110 H (70-99(Fasting)) mg/dl Calcium 8.1 L (8.6-10.3) mg/dl
--- NOTE | 2022-09-08 10:36 | XRay Report ---
KUB CLINICAL HISTORY: Reassess XR findings COMPARISON STUDY: CT of the abdomen and pelvis September 05, 2022. KUB September 07, 2022. FINDINGS: Peritoneal dialysis catheter is incidentally noted. There are postoperative findings within the lumbosacral spine. Large amount of stool within the rectum is noted. Mild small bowel dilatation has developed since prior examination. IMPRESSION: 1. Interval development of mild small bowel dilatation. This may reflect an ileus. A small bowel obst ruction is considered less likely however radiographic follow-up is recommended. 2. Large amount of stool within the rectum. ACT 112: Negative or not required by law. Electronically signed by: Junito Kim M.D. 09/08/2022 10:34 AM
[2022-09-08] MEDS ORDERED: SODIUM CHLORIDE 0.9% 1000ML 500 ML IV ONE ×2 (11:06→16:58)
--- NOTE | 2022-09-08 15:51 | CT Scan Report ---
CT OF THE ABDOMEN AND PELVIS WITHOUT CONTRAST CLINICAL HISTORY: Reassess rectal bowel/constipation/stercoral colitis. COMPARISON STUDY: CT of the abdomen and pelvis September 05, 2022 and KUB performed earlier today. TECHNIQUE: Axial images of the abdomen and pelvis were obtained without IV contrast. Images were revi ewed in the axial, sagittal, and coronal planes. Automated exposure control was utilized for the dagoberto dy. A dose lowering technique was utilized adhering to the principles of ALARA. FINDINGS: Numerous locules of extraluminal gas have increased since CT of September 05, 2022. These are pro bably related to the peritoneal dialysis catheter. A small amount of abdominal and pelvic ascites has slightly decreased. Unenhanced images of the liver, spleen, adrenal glands and pancreas are unremark able. Layering hyperdense material within the gallbladder is noted. This could reflect vicarious excr etion of contrast. Marked right and moderate left renal atrophy are noted. Bilateral renal lesions ar e suboptimally assessed on this unenhanced examination. A large stool ball within the rectum is simil ar to prior exam. Mild adjacent stranding has slightly increased. Moderate amount of liquid stool thr oughout the colon is again noted. There is no evidence for acute appendicitis. The small bowel is now mildly dilated and fluid-filled. No transition point is identified. There is colonic diverticulosis without evidence for acute diverticulitis. No fluid collection is present. Postoperative findings wit hin the spine are incidentally noted. IMPRESSION: 1. Increase in pneumoperitoneum since CT of September 05, 2022. Although nonspecific, this is probably rela ibis to the peritoneal dialysis catheter. Small amount of peritoneal fluid, decreased since prior exam . 2. No significant change in a large stool ball within the rectum. Mild rectal wall thickening with ad jacent stranding which has slightly increased. This favors stercoral proctitis. Moderate amount of po khurram formed stool throughout remainder of the colon. 3. Interval development of fluid-filled, mildly dilated small bowel without transition point. This ma y reflect an ileus. A partial small bowel obstruction is considered less likely. ACT 112: Negative or not required by law. Electronically signed by: Junito Kim M.D. 09/08/2022 3:50 PM
--- NOTE | 2022-09-08 16:40 | Electrocardiogram Report ---
Test Reason : Blood Pressure : / mmHG Vent. Rate : 057 BPM Atrial Rate : 057 BPM P-R Int : 210 ms QRS Dur : 076 ms QT Int : 470 ms P-R-T Axes : 072 -14 020 degrees QTc Int : 457 ms Sinus bradycardia with marked sinus arrhythmia with 1st degree A-V block Possible Inferior infarct (cited on or before 29-MAY-2022) Cannot rule out Anterior infarct (cited on or before 05-SEP-2022) Abnormal ECG When compared with ECG of 05-SEP-2022 11:31, Vent. rate has decreased BY 32 BPM Questionable change in initial forces of Anterior leads Confirmed by Julio Lima ([id number]) on 09/08/2022 4:40:01 PM Referred By: REFERRED SELF Confirmed By:Julio Lima
[2022-09-08] MEDS: LATANOPROST 0.005% OP SOLN 2.5 ML BTL OPB SCH (20:22)
[2022-09-08 21:18] LABS: Calcium 7.8 mg/dl (8.6-10.3); Creatinine Clr Calc Pharmacy 9.7 ml/min; Est GFR (African American) 10.7 ml/min; Est GFR (Non-African American) 9.2 ml/min; Potassium 3.5 mmol/L (3.5-5.1)
[2022-09-09] MEDS: PROMETHAZINE HCL 6.25 MG in SODIUM CHLORIDE 0.9% 50 ML IV PRN ×2 (03:37→09:56)
[2022-09-09] MEDS: HEPARIN SOD 5,000 UNIT/0.5 ML VIAL SC SCH ×2 (04:56→15:06)
[2022-09-09] MEDS ORDERED: MICONAZOLE NITRATE POWDER 85 GM EXT PRN (04:59)
--- NOTE | 2022-09-09 06:53 | CT Scan Report ---
CT OF THE ABDOMEN AND PELVIS WITHOUT CONTRAST CLINICAL HISTORY: worsening belly pain, hx pneumoperitoneum COMPARISON STUDY: CT of the abdomen and pelvis September 08, 2022. TECHNIQUE: Axial images of the abdomen and pelvis were obtained without IV contrast. Images were revi ewed in the axial, sagittal, and coronal planes. Automated exposure control was utilized for the dagoberto dy. A dose lowering technique was utilized adhering to the principles of ALARA. FINDINGS: Multiple locules of extraluminal gas are similar to CT of September 08, 2022. A small amount of a bdominal and pelvic ascites has slightly decreased. Peritoneal dialysis catheter is in place. Evaluat ion of the abdomen and pelvis is suboptimal on this unenhanced exam. Liver, spleen, adrenal glands an d pancreas are unremarkable. There is layering hyperdense material within the gallbladder. Marked rig ht and moderate left renal atrophy is noted. Large amount stool within the rectum is again noted. Rec juan miguel wall thickening with mild adjacent stranding is again noted. Multiple loops of moderately small b owel are noted. Well-defined transition point is not identified. Small bowel dilatation has increased since prior examination. There is contrast within the bladder from recent contrast-enhanced CT T. No acute fractures are identified. There is no lymphadenopathy. No fluid collection is identified. IMPRESSION: 1. No significant change in pneumoperitoneum since CT of September 08, 2022. This is nonspecific although p robably related to the indwelling peritoneal dialysis catheter. However, a perforated hollow viscus c ould result in a similar imaging appearance. 2. Increase in small bowel dilatation. This could reflect an ileus or partial small bowel obstruction . 3. Large amount of stool within the rectum. Rectal wall thickening with adjacent stranding suggestive of stercoral proctitis. ACT 112: Negative or not required by law. Electronically signed by: Junito Kmi M.D. 09/09/2022 6:51 AM
--- NOTE | 2022-09-09 07:31 | Communication Note ---
Date of Service: September 09, 2022 Late entry 2 AM Made aware by RN of worsening abdominal pain/nausea symptoms Patient with BM after enema administration. AP Worsening abdominal pain Pneumoperitoneum on CT 09/[address] abdomen pelvis [address] abdomen pelvis results noted 1. No significant change in pneumoperitoneum since CT of September 08, 2022. This is nonspecific although probably related to the indwelling peritoneal dialysis catheter. However, a perforated hollow viscus could result in a similar imaging appearance. 2. Increase in small bowel dilatation. This could reflect an ileus or partial small bowel obstruction. 3. Large amount of stool within the rectum. Rectal wall thickening with adjacent stranding suggestive of stercoral proctitis General surgery consult Re: Possible partial SBO on CT N.p.o. status until patient seen by General Surgery
[2022-09-09 07:35] LABS: Hematocrit (blood only) 30.5 % (42.0-52.0); Hemoglobin 10.5 g/dl (14.0-18.0); Mean Corpuscular Hgb Conc 34.4 g/dL (32.0-36.0); Mean Corpuscular Volume 95.9 fL (80.0-100.0); Mean Platelet Volume 9.5 fL (9.4-12.4); Platelet Count 307 K/uL (130-400); RDW Coefficient of Variation 15.9 % (11.5-14.5); RDW Standard Deviation 56.3 fL (36.4-46.3); Red Blood Count 3.18 M/uL (4.70-6.10); White Blood Count 8.74 K/ul (4.8-10.8)
[2022-09-09 08:01] LABS: BUN Creatinine Ratio 7.5 (10-20); Calcium 7.9 mg/dl (8.6-10.3); Creatinine Clr Calc Pharmacy 10.7 ml/min; Est GFR (African American) 11.5 ml/min; Est GFR (Non-African American) 9.9 ml/min; Magnesium 1.8 mg/dl (1.7-2.4); Phosphorus 3.9 mg/dl (2.5-4.9)
[2022-09-09] MEDS: allopurinoL 100 MG TAB PO SCH (08:39)
[2022-09-09] MEDS: SEVELAMER HCL 800 MG TABLET PO SCH ×3 (08:39→16:45)
[2022-09-09] MEDS: ASPIRIN 81 MG ECTAB PO SCH (08:40)
[2022-09-09] MEDS: ATORVASTATIN 40 MG TAB PO SCH (08:40)
[2022-09-09] MEDS: LINACLOTIDE 145 MCG CAPSULE PO SCH (08:40)
[2022-09-09] MEDS: DOCUSATE SODIUM/SENNA 50/8.6MG TAB PO SCH (08:40)
[2022-09-09] MEDS: NEPHROCAPS PO SCH (08:40)
[2022-09-09] MEDS ORDERED: POTASSIUM CHLORIDE CRTAB 20 MEQ TABCR PO SCH (09:00)
--- NOTE | 2022-09-09 09:04 | Surgery Consultation ---
Date of Consultation September 09, 2022 Assessment & Plan (1) Abdominal pain: Patient resting in bed Reports last BM was this AM Continues to have Abd pain worse in the RLQ and LLQs to palpation, abdomen soft non-distended, PD catheter insertion site covered with medipore tape + Nausea, denies vomiting CT scan shows possible SBO/ileus VSS Will continue conservative treatment and NPO status Dr. Jorge to see patient later this AM. Supervising Physician Co-Signing Physician Notes Dr. Lauren note as above-I saw the patient in his room and examined him and also reviewed all of his studies I also had his on the cell phone and she heard my discussion and I answered any questions. Actually the patient looks relatively good He is awake and alert, his vital signs are stable, he does complain of some abdominal pain His abdomen is flat and soft and he does not have peritoneal signs, he does have some bowel sounds He has some mild tenderness to deep palpation in the pelvis I reviewed his CAT scan with radiology-the free air is likely from his catheter, there is no evidence of bowel perforation or significant Bowel obstruction from comparison with previous films. We could repeat culture his fluid, obviously he could even have spontaneous bacterial peritonitis He does have significant stool in his rectum which persists-this will likely need to be removed as he is having stool around this area He may need manual and/or endoscopic help with this If he required surgery it would be likely an end colostomy and then he would have to be placed on hemodialysis And his postoperative course may be very difficult He may need PPN if he cannot eat and this may be difficult with his renal failure I will discuss this with the medical team and also the supervisor electronics processing No plan for operation at this point, I will follow him over the weekend History of Present Illness Reason for Consultation: SBO/Ileus seen on CT Attending Physician: Carlie Ennis MD History of Present Illness Patient is a 77 year male with PMH DM2, ESRD with PD catheter, Right MCA stroke, HTN, HLD, constipation due to opioid therapy, that presented to the ER on 09/03/22 with c/o abdominal pain /constipation that was ongoing for 2 weeks. He was treated with an enema and d/c home. Unfortunately he was not feeling better and presented to the ER on 09/05 with worsening abd pain, constipation, hypotension. Patient was admitted, sepsis was r/o, negative blood and peritoneal fluid cultures. Patient was started on miralax and tap water enemas, has had multiple BMs last one noted was this AM. Was taken for an ABd. CT scan early this AM due to worsening abd pain and patient was made NPO. Allergies Allergy/AdvReac Type Severity Reaction Status Date / Time No Known Allergies Allergy Verified 09/03/22 13:55 Home Medications Medication Instructions Recorded Confirmed Type allopurinol 100 mg tablet 200 mg PO QAM 03/23/21 09/05/22 History latanoprost 0.005 % eye drops 1 drp OPB HS 03/23/21 09/05/22 History triamcinolone acetonide 0.1 % 1 applic topical DIRECTED PRN 03/23/21 09/05/22 History topical ointment Skin Irritation torsemide 100 mg tablet 100 mg PO DAILY 05/26/22 09/05/22 History aspirin 81 mg tablet,delayed 81 mg PO QAM #30 tabs 05/30/22 09/05/22 Rx release atorvastatin 40 mg tablet 40 mg PO QAM #30 tabs 05/30/22 09/05/22 Rx metoprolol succinate 25 mg 12.5 mg PO QAM 09/03/22 09/05/22 History tablet,extended release 24 hr potassium chloride 20 mEq 20 meq PO .EVERY OTHER DAY 09/03/22 09/05/22 History tablet,extended release(part/cryst) tramadol 50 mg tablet 50 - 100 mg PO Q6H PRN Pain 09/03/22 09/05/22 History sevelamer carbonate 800 mg tablet 800 mg PO TID 09/05/22 09/05/22 History vitamin B complex-vitamin C-folic 1 tab PO DAILY 09/05/22 09/05/22 History acid 0.8 mg tablet (Belinda-Moose) Patient History Medical History Anemia of renal disease Constipation due to opioid therapy ESRD (end stage renal disease) on dialysis Peritoneal dialysis Glaucoma Gout History of nephrolithiasis HLD (hyperlipidemia) HTN (hypertension) Lumbar stenosis with neurogenic claudication Prostate cancer Spondylolisthesis of lumbar region Stercoral colitis Type 2 diabetes, diet controlled Surgical History History of lumbar fusion Hx of cataract extraction Hx of colonoscopy Hx of prostatectomy robotic assisted retropubic 2013 Family History Mother , at 88 Stroke Father , in 60s Heart disease Social History Smoking Status: Never smoker Tobacco Type: Smokeless Tobacco (Dip or Chew) Second Hand Exposure: No; Do You Dip or Chew Tobacco: Yes (1/2 can per day); Tobacco Cessation Education Requested by Patient: No Hx Alcohol Use: No Hx Substance Use: No Preferred Language: Turkish Communication Ability: Effective Hearing Ability: Hard of Hearing Wall Cleaner Required: No Beliefs That Will Affect Care: None marital status: Current Living Situation: Spouse Feels Safe at Home: Yes Assistive Devices: Bedside Commode, Cane and Walker Review of Systems Respiratory: no dyspnea Cardiovascular: no chest pain Gastrointestinal: + abdominal pain (reports generalized abd pain worse in RLQ and LLQ to palpation) and + nausea; no vomiting Last reported BM this AM Physical Exam Constitutional: cooperative; no acute distress alert/awake/ oriented Respiratory: normal respiratory effort; no respiratory distress and does not use accessory muscles Cardiovascular: Rate/Rhythm: regular rate Gastrointestinal (Abdomen): Inspection/Auscultation: + abdominal surgical drain present (PD catheter ); abdomen not distended Percussion/Palpation: + abdomen tender and abdomen soft Results & Data Vital Signs (Past 12 Hours) Vital Signs Temp Pulse Pulse Pulse Resp BP BP 09/09/22 06:45 98.1 F 80 20 09/09/22 07:47 72 09/09/22 07:37 98.1 F 80 20 112/66 09/09/22 04:34 98.2 F 75 14 118/66 09/09/22 02:59 98.2 F 72 16 108/64 09/08/22 22:12 87 09/08/22 22:59 99.0 F 85 16 111/64 Pulse Ox O2 Del Method 09/09/22 06:45 09/09/22 07:47 09/09/22 07:37 98 Room Air 09/09/22 04:34 98 Room Air 09/09/22 02:59 96 Room Air 09/08/22 22:12 07/06/23 22:59 97 Room Air Diagnostic Findings [place], [place] [phone] CT Scan Report Patient:GUILLERMO ALEJANDRO Admit Date:09/05/22 MR#:[id number] Address1:[address] [place] [address] Acct ID:[id number] Address2: Date:1945 [facility] Zip:[place] [address] Age:77 Location:2W Sex:M Room/Bed:[facility] Att Phy:Carlie Ennis MD Diagnosis:SEPSIS Arianne Phy:Barrett Dacosta MD Service Date:09/09/22 Fam Phy: Interpreting Phy:Junito Kim MDAdmit Phy:Michelle Clements MD Ordering Phy:Leon Ferguson MD cc: ~ CT OF THE ABDOMEN AND PELVIS WITHOUT CONTRAST CLINICAL HISTORY: worsening belly pain, hx pneumoperitoneum COMPARISON STUDY: CT of the abdomen and pelvis September 08, 2022. TECHNIQUE: Axial images of the abdomen and pelvis were obtained without IV contrast. Images were reviewed in the axial, sagittal, and coronal planes. Automated exposure control was utilized for the study. A dose lowering technique was utilized adhering to the principles of ALARA. FINDINGS: Multiple locules of extraluminal gas are similar to CT of September 08, 2022. A small amount of abdominal and pelvic ascites has slightly decreased. Peritoneal dialysis catheter is in place. Evaluation of the abdomen and pelvis is suboptimal on this unenhanced exam. Liver, spleen, adrenal glands and pancreas are unremarkable. There is layering hyperdense material within the gallbladder. Marked right and moderate left renal atrophy is noted. Large amount stool within the rectum is again noted. Rectal wall thickening with mild adjacent stranding is again noted. Multiple loops of moderately small bowel are noted. Well-defined transition point is not identified. Small bowel dilatation has increased since prior examination. There is contrast within the bladder from recent contrast-enhanced CT T. No acute fractures are identified. There is no lymphadenopathy. No fluid collection is identified. IMPRESSION: 1. No significant change in pneumoperitoneum since CT of September 08, 2022. This is nonspecific although probably related to the indwelling peritoneal dialysis catheter. However, a perforated hollow viscus could result in a similar imaging appearance. 2. Increase in small bowel dilatation. This could reflect an ileus or partial small bowel obstruction. 3. Large amount of stool within the rectum. Rectal wall thickening with adjacent stranding suggestive of stercoral proctitis. ACT 112: Negative or not required by law. PG Care Time/CCT Total # of Minutes Spent Total Time Spent with Patient: Total time spent is greater than 50% in coordination of care (as documented) at patient's floor/unit and/or counseling patient: Coding Level of Care Code 16160 INT INP/OBS CARE 2/55MIN Diagnoses Abdominal pain R10.9
--- NOTE | 2022-09-09 09:20 | Gastroenterology Progress Note ---
Date of Service September 09, 2022 Assessment & Plan (1) Stercoral colitis: Plan 77 year old male w/ history of right MCA CVA (July 2022), ESRD on PD, chronic anemia, NIDDM-II (diet controlled, previously on Metformin) associated with HTN and HLP, nephrolithiasis, prostate ca s/p prostatectomy, Lumbar stenosis with claudication, and glaucoma admitted w/ constipation, impaction, bowels moving after bowel purge last night Agree with general surgery evaluation May continue Tap water enema q6h for 24 hours Should be on a bowel regimen, Miralax 1-2 capfuls 1-2 times daily if cleared by renal Recall as needed. Thank you for allowing us to participate in the care of this patient. Please call with any acute changes, questions or concerns. Please see addendum below with additional recommendation from my supervising physician. Admission and Anticipated Discharge Date Admission Date: September 05, 2022 Supervising Physician Co-Signing Physician Notes I have seen and examined the patient with JACOBO Renteria whose note reflects our findings and plan. Imaging reviewed. Patient needs a bowel regimen as detailed above. Subjective GI asked to re-evaluate. Some abd pain yesterday. KUB ?ileus and persistent fecal impaction. Had CT x 2. Notes he has mild pain. No no nausea, vomiting. Having pasty BMs after enema. Was evaluated by general surgery this AM. CT 2022: 1. No significant change in pneumoperitoneum since CT of September 08, 2022. This is nonspecific although probably related to the indwelling peritoneal dialysis catheter. However, a perforated hollow viscus could result in a similar imaging appearance.Increase in small bowel dilatation. This could reflect an ileus or partial small bowel obstruction.Large amount of stool within the rectum. Rectal wall thickening with adjacent stranding suggestive of stercoral proctitis. Review of Systems Review of Systems: All systems reviewed & are unremarkable except as noted in HPI & below Physical Exam Constitutional: WD/WN, vitals as above Respiratory: normal respiratory effort, lungs clear to auscultation Cardiovascular: Rate/Rhythm: regular rate and regular rhythm Gastrointestinal (Abdomen): normal bowel sounds, soft, nontender, no hepatosp lenomegaly Skin: no rashes, warm and dry Results & Data Vital Signs (Past 12 Hours) Vital Signs Temp Pulse Pulse Pulse Resp BP BP 09/09/22 06:45 36.7 C 80 20 09/09/22 07:47 72 09/09/22 07:37 36.7 C 80 20 112/66 09/09/22 04:34 36.8 C 75 14 118/66 09/09/22 02:59 36.8 C 72 16 108/64 09/08/22 22:12 87 09/08/22 22:59 37.2 C 85 16 111/64 Pulse Ox O2 Del Method 09/09/22 06:45 09/09/22 07:47 09/09/22 07:37 98 Room Air 09/09/22 04:34 98 Room Air 09/09/22 02:59 96 Room Air 09/08/22 22:12 09/08/22 22:59 97 Room Air
[2022-09-09] MEDS: PLASMA-LYTE A 1,000 ML IV SCH ×2 (09:30→22:50)
[2022-09-09] MEDS: POTASSIUM CHLORIDE / WTR 10 MEQ/100 ML PLCT IV SCH ×4 (09:32→12:38)
--- NOTE | 2022-09-09 10:22 | Nephrology Progress Note ---
Date of Service September 09, 2022 Assessment & Plan (1) Abdominal pain: Plan: PD peritonitis is on the differential here >PD fluid studies ordered; senior health physics technician team aware >intraperitoneal empiric abtx > 1.25 gm ceftazidime and 1.5 gm vanco to dwell 6- 8 hrs in 2L of 1.5% dextrose >vanco level for am ordered -abtx to continue or not tomorrow pending fluid study results -control pain >> per primary service >d/w Dr Ennis and will f/u pending cell count diff (2) ESRD (end stage renal disease) on dialysis: Plan: ESRD on PD -He is on manual exchanges at home ( 2. 5 L @ 1.5%, 3 bags of 4 hr dwell and 1 bag of 8 hr long dwell) -SBP often 100-110s as OP; 20 mg daily lasix spring 2022 intensified to 100 mg daily torsemide; SBP at baseline today -stopped torsemide and would avoid resuming given constipation issues/dialysis fluid limits -In hospital, he will be on Cycler, 4 cycles, 2.5 lit of 1.5%, 4 exchanges for a total of 10 hr. - Continue on the same prescription today, had 365 mL UF overnight but had lots of BM -reasonable while NPO to do gentle IVF > no mroe than 50 mL/hr -Continue on home medications except for diuretics stopped now completely -continue q 2 day low dose K; else replete K prn > getting 40 of K IV currently and for recheck 2100 -daily bmp Care coordinated w/ Dr Ennis multiple times in the day and also w/ Dr Jorge I spent a total of 50 minutes coordinating, documenting and providing care for this patient excluding time spent in performance of separately billed services (3) Stercoral colitis: Plan: needs disimpaction continue GI recommendations q6h tap water enemas >> nephro fine with miralax regimen proposed by GI; will monitor chemistries on this (sometimes see high Ca and/or mag) >>stopped diuretics since these in conjunction w/ fluid limits as dialysis patient can worsen constipation Admission and Anticipated Discharge Date Admission Date: September 05, 2022 Subjective came off PD in middle of night d/t abrupt onset BLQ/periumbilical abd pain w/ N; CT unrevealing/ no new findings. pain persists though improved. no sob. Review of Systems Review of Systems: All systems reviewed & are unremarkable except as noted in Subjective Physical Exam Constitutional: well developed, + thin and cooperative; no acute distress (lying flat on RA, sleeping but wakens fully) Eyes: EOM intact bilaterally ENMT: Ears: no external ear abnormality Nose: no external nose abnormality Mouth: + dry oral mucous membranes Neck: no nuchal rigidity Respiratory: normal respiratory effort Auscultation: + diminished lung sounds Cardiovascular: Rate/Rhythm: regular rate and regular rhythm Extremities: no edema Gastrointestinal (Abdomen): Inspection/Auscultation: normal bowel sounds and + abdominal surgical drain present (PD cath) Percussion/Palpation: + abdomen tender (periumbilical, BLQ) and abdomen soft; no guarding and no ascites Musculoskeletal: Extremities: strength 5/5 throughout Skin: no rashes, warm and dry Neurologic: diego, fluent speech, no tremor Results & Data Vital Signs (Past 12 Hours) Vital Signs Temp Pulse Pulse Pulse Resp BP BP 09/09/22 06:45 36.7 C 80 20 09/09/22 07:47 72 09/09/22 07:37 36.7 C 80 20 112/66 09/09/22 04:34 36.8 C 75 14 118/66 09/09/22 02:59 36.8 C 72 16 108/64 09/08/22 22:12 87 09/08/22 22:59 37.2 C 85 16 111/64 Pulse Ox O2 Del Method 09/09/22 06:45 09/09/22 07:47 09/09/22 07:37 98 Room Air 09/09/22 04:34 98 Room Air 09/09/22 02:59 96 Room Air 09/08/22 22:12 09/08/22 22:59 97 Room Air Laboratory Results 09/09/22 06:59 09/09/22 06:[address] a/p reviewed
[2022-09-09] MEDS ORDERED: PERITONEAL 1.5% IP SCH ×2 (11:30)
[2022-09-09] MEDS ORDERED: VANCOMYCIN HCL IP SCH ×2 (11:30)
[2022-09-09] MEDS ORDERED: DIALYSIS IP SCH ×2 (11:30)
[2022-09-09] MEDS ORDERED: CEFTAZIDIME IP SCH ×2 (11:30)
--- NOTE | 2022-09-09 12:56 | Hospitalist Progress Note ---
Date of Service September 09, 2022 Assessment & Plan (1) Stercoral colitis: (2) Constipation due to opioid therapy: Plan: Presented with abd pain, constipation and had low BP BP improved with 250 ml bolus x 2. Patient states he always has low blood pressure due to his dialysis. Patient was started on empirical antibiotics on admission Patient remains afebrile and without leukocytosis, procalcitonin negative Admission Blood cultures and PD culture are negative so far CT A/P on 09/05/22 showed Moderate to large amount of liquid stool seen throughout the colon including a 9 x 8 cm rectal stool ball, Mild rectal wall thickening for the degree of distention is again noted. There is also mild perirectal edema. This could represent a stercoral proctitis. A few scattered foci of pneumoperitoneum seen within the upper abdomen which is likely due to the patient's peritoneal dialysis catheter. This has improved in the interval. No evidence for a small bowel obstruction. Antibiotics had been stopped on 09/07/22 after 48h of empirical therapy Chronic opioid induced constipation Per history, responded well to Milk of magnesia but this had to be d/c d/t renal function. Lactulose worked "too well" and causes uncontrollable diarrhea Repeat CT A/P on 09/08/22 noted no significant change in large stool ball within rectum, mild rectal wall thickening slightly increased, stool throughout colon, fluid filled mildly dilated small bowel without transition suggestive of ileus Repeat CT A/P 09/09/22 noted no significant change in pneumoperitoneum, increase in small bowel dilatation suggesting ileus or partial SBO, large stool in rectum I discussed with surgeon Dr Jorge. Patient will be high risk for surgical management considering comorbidities and if need for surgery, he will end up with colostomy and transition to HD. Conservative management recommended for now RN attempted disimpaction. She reported stool was too hard and tough to disimpact Discussed with GI. I asked about possible endoscopic options but GI stated they could not do anything procedurally GI recommend extending tap water enema for another 24h and attempting disimpaction again tomorrow Serial imaging I discussed with Aircraft Structural Fitter due to increasing pain. Also concern for possible development of peritonitis from possible transmigration from gut giselle. PD RN sent PD fluid analysis. Fluid analysis had 2515 WBC compared to 14 on 09/05/22 Fluid culture in lab Possible peritonitis. Nephro added intra peritoneal antibiotics. Will monitor for now. Low threshold for systemic antibiotics if patient develops SIRS Started plasmalyte since patient is NPO Replete hypokalemia and monitor (3) ESRD (end stage renal disease) on dialysis: Plan: Does peritoneal dialysis 4x per day Pneumoperitoneum seen on CTs likely due to PD As above (4) Type 2 diabetes, diet controlled: Plan: Previously on metformin, now diet controlled (5) Stroke: Plan: No new deficits completed 21 days of DAPT continue ASA daily (6) Anemia of renal disease: Plan: Hb 10.5 today Monitor (7) HLD (hyperlipidemia): Plan: Continue statin therapy (8) HTN (hypertension): Plan: Continue home metoprolol with hold parameters Torsemide on hold for now (9) Gout: Plan: No complaints at this time. continue allopurinol (10) Lumbar stenosis with neurogenic claudication: Plan: Continue Tramadol (11) Hypokalemia: Plan: Monitor and replete (12) Hyponatremia: Plan: Nephro on board Monitor Plan DVT prophylaxis-subcu heparin I spent a total of 55 minutes coordinating, documenting and providing care for this patient excluding time spent in performance of separately billed services Admission and Anticipated Discharge Date Admission Date: September 05, 2022 Subjective Per Nuclear Fuels Research Engineer, patien's abd pain worsened overnight with nausea. CT abd was repeated which noted increased small bowel dilatation. Patient has been NPO since. Seen and examined today Reports weakness, stated he did not get enough sleep last night Reports low abd pain and nausea Denied vomiting Denied fever, chills, chest pain, cough, SOB Physical Exam Constitutional: + well hydrated Eyes: PERRL, conjunctivae normal, anicteric sclerae ENMT: external ear and nose normal, oropharynx normal Respiratory: normal respiratory effort, lungs clear to auscultation Cardiovascular: Rate/Rhythm: regular rate and regular rhythm S1 S2 Gastrointestinal (Abdomen): Abd is soft, not distended but tender, No rebound/guarding, +bowel sounds Musculoskeletal: No pedal edema Neurologic: PERRL, EOMI, accommodation nl, no face palsy, no dysarthria Psychiatric: A+Ox3, euthymic affect Results & Data Results & Data Vital Signs (Past 12 Hours) Vital Signs Temp Pulse Pulse Pulse Resp BP BP 09/09/22 11:17 36.5 C 64 16 132/79 09/09/22 10:02 09/09/22 06:45 36.7 C 80 20 09/09/22 07:47 72 09/09/22 07:37 36.7 C 80 20 112/66 09/09/22 04:34 36.8 C 75 14 118/66 09/09/22 02:59 36.8 C 72 16 108/64 Pulse Ox O2 Del Method 09/09/22 11:17 91 Room Air 09/09/22 10:02 Room Air 09/09/22 06:45 09/09/22 07:47 09/09/22 07:37 98 Room Air 09/09/22 04:34 98 Room Air 09/09/22 02:59 96 Room Air Laboratory Results Abnormal lab results 09/08/22 09/08/22 09/09/22 Range/Units 14:47 20:24 06:59 RBC 3.18 L (4.70-6.10) M/uL Hgb 10.5 L (14.0-18.0) g/dl Hct 30.5 L (42.0-52.0) % RDW Std Deviation 56.3 H (36.4-46.3) fL RDW Coeff of Bayron 15.9 H (11.5-14.5) % Sodium 132 L (136-145) mmol/L Potassium 3.3 L (3.5-5.1) mmol/L Chloride (98-107) mmol/L Carbon Dioxide 20 L (21-32) mmol/L Anion Gap 14 H (3-11) BUN 44 H (6-23) mg/dl Creatinine 5.53 H* D (0.6-1.4) mg/dl BUN/Creatinine Ratio 8.0 L (10-20) Glucose 167 H (70-99(Fasting)) mg/dl Calcium 7.8 L (8.6-10.3) mg/dl Peritoneal WBC (Auto) (0-300) /ul 09/09/22 09/09/22 Range/Units 06:59 13:30 RBC (4.70-6.10) M/uL Hgb (14.0-18.0) g/dl Hct (42.0-52.0) % RDW Std Deviation (36.4-46.3) fL RDW Coeff of Bayron (11.5-14.5) % Sodium 131 L (136-145) mmol/L Potassium 3.0 L (3.5-5.1) mmol/L Chloride 95 L (98-107) mmol/L Carbon Dioxide (21-32) mmol/L Anion Gap (3-11) BUN 39 H (6-23) mg/dl Creatinine 5.21 H* D (0.6-1.4) mg/dl BUN/Creatinine Ratio 7.5 L (10-20) Glucose (70-99(Fasting)) mg/dl Calcium 7.9 L (8.6-10.3) mg/dl Peritoneal WBC (Auto) 2515 H (0-300) /ul
[2022-09-09 14:25] LABS: Appearance Peritoneal Fluid Hazy; Color Peritoneal Fluid Pale Yellow; RBC Peritoneal Fluid Auto < 2000 /uL; WBC Peritoneal Fluid Auto 2515 /ul (0-300)
[2022-09-09 14:44] LABS: Eosinophils, Fluid 1 %; Mono,Macrophage,Mesothelial 14 %; Neutrophils, Fluid 85 %
[2022-09-09] MEDS ORDERED: ONDANSETRON INJ 2 MG/ML 2 ML VIAL IV STA (14:53)
--- NOTE | 2022-09-09 15:25 | XRay Report ---
KUB CLINICAL HISTORY: Small bowel obstruction. FINDINGS: 2 AP, portable, supine abdominal radiographs are correlated with abdominal CT performed the same day 09/09/2022. There is gaseous distention of the stomach and small bowel loops consistent with persistent high-grade obstruction. Small bowel loops measure up to 5 cm. Foci of intraperitoneal free air are suggested in the upper abdomen. This is not well assessed on these supine images. A catheter is present in the pelvis. Excreted IV contrast fills the bladder. There are no abnormal abdominal ca lcifications. The skeletal structures are osteopenic and appear intact. Spondylotic and postsurgical change is noted in the lumbar spine. IMPRESSION: 1. Persistent high-grade small bowel obstruction. 2. Small foci of intraperitoneal free air were better assessed on today's abdominal CT and may be rel ated to the presence of a pelvic catheter. Electronically signed by: Rayshawn Javed M.D. 09/09/2022 3:23 PM
--- NOTE | 2022-09-09 16:09 | Critical Care Consultation ---
Date of Consultation September 09, 2022 Assessment & Plan (1) Bowel obstruction: (2) Hypokalemia: (3) Sepsis: (4) Stercoral colitis: (5) Type 2 diabetes, diet controlled: (6) ESRD (end stage renal disease) on dialysis: (7) Glaucoma: Plan Reason Critically Ill: 77-year-old male past medical history of end-stage renal disease on peritoneal dialysis, dyslipidemia, MCA CVA in July 2022, hypertension, dyslipidemia presented to the hospital with sepsis secondary to abdominal peritonitis. Developed high-grade SBO. 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 Plan: Put NG tube in and put it to intermittent dysfunction Plan for the patient is to likely go to the OR later today. No rebound on physical exam but patient is in severe distress, pain medications as needed Patient is already on antibiotics vancomycin and ceftazidime I did speak with Dr. Jorge, if the patient goes to the OR he might end up with colostomy and will not be able to use the peritoneal dialysis catheter. In that instance tomorrow we can put dialysis catheter in the IJ. Labs from today morning showed a potassium of 3. No acute need for dialysis right now Repeat lactate is 1.5 Patient was actively wheezing. I will start the patient on Brovana and budesonide nebulized. Case was discussed with Dr. Jorge I have personally spent 40 minutes of critical care time in the direct management of this patient. This is a life/limb threatening event. This includes time spent evaluating patient, direct bedside care, chart review, placing orders, interpretation of diagnostic studies, discussion with consultants, patient, and family members, as well as other required patient management activities. This time is exclusive of all separately billable procedures, and teaching time and separate from and in addition to any other critical care service time. History of Present Illness Attending Physician: Carlie Ennis MD History of Present Illness 77-year-old male was admitted to the hospital because of abdominal pain and sepsis Past medical history: End-stage renal disease on peritoneal dialysis at home, right MCA CVA in 2012, diabetes type 2 on metformin, hypertension, dyslipidemia, glaucoma Patient was being treated on the floor with antibiotics for abdominal peritonitis. He developed SBO in the interim which was progressively getting worse. ICU was consulted as patient will likely need to go to the OR and then transferred to the ICU for further care At the time of examination patient was in acute distress secondary to vomiting and abdominal discomfort. He was saturating 96 to 97% on room air. Did complain of abdominal pain which was getting progressively worse. Denies any issues with breathing, no chest pain, no dizziness. Denies any cough, no hemoptysis Has been having low-grade fevers. 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 Allergies Allergy/AdvReac Type Severity Reaction Status Date / Time No Known Allergies Allergy Verified 09/03/22 13:55 Home Medications Medication Instructions Recorded Confirmed Type allopurinol 100 mg tablet 200 mg PO QAM 03/23/21 09/05/22 History latanoprost 0.005 % eye drops 1 drp OPB HS 03/23/21 09/05/22 History triamcinolone acetonide 0.1 % 1 applic topical DIRECTED PRN 03/23/21 09/05/22 History topical ointment Skin Irritation torsemide 100 mg tablet 100 mg PO DAILY 05/26/22 09/05/22 History aspirin 81 mg tablet,delayed 81 mg PO QAM #30 tabs 05/30/22 09/05/22 Rx release atorvastatin 40 mg tablet 40 mg PO QAM #30 tabs 05/30/22 09/05/22 Rx metoprolol succinate 25 mg 12.5 mg PO QAM 09/03/22 09/05/22 History tablet,extended release 24 hr potassium chloride 20 mEq 20 meq PO .EVERY OTHER DAY 09/03/22 09/05/22 History tablet,extended release(part/cryst) tramadol 50 mg tablet 50 - 100 mg PO Q6H PRN Pain 09/03/22 09/05/22 History sevelamer carbonate 800 mg tablet 800 mg PO TID 09/05/22 09/05/22 History vitamin B complex-vitamin C-folic 1 tab PO DAILY 09/05/22 09/05/22 History acid 0.8 mg tablet (Belinda-Moose) Patient History Medical History Anemia of renal disease Constipation due to opioid therapy ESRD (end stage renal disease) on dialysis Peritoneal dialysis Glaucoma Gout History of nephrolithiasis HLD (hyperlipidemia) HTN (hypertension) Lumbar stenosis with neurogenic claudication Prostate cancer Spondylolisthesis of lumbar region Stercoral colitis Type 2 diabetes, diet controlled Surgical History History of lumbar fusion Hx of cataract extraction Hx of colonoscopy Hx of prostatectomy robotic assisted retropubic 2013 Family History Mother , at 88 Stroke Father , in 60s Heart disease Social History Smoking Status: Never smoker Tobacco Type: Smokeless Tobacco (Dip or Chew) Second Hand Exposure: No; Do You Dip or Chew Tobacco: Yes (1/2 can per day); Tobacco Cessation Education Requested by Patient: No Hx Alcohol Use: No Hx Substance Use: No Preferred Language: Wolof Communication Ability: Effective Hearing Ability: Hard of Hearing Jute Bag Cutting Machine Operator Required: No Beliefs That Will Affect Care: None marital status: Current Living Situation: Spouse Feels Safe at Home: Yes Assistive Devices: Bedside Commode, Cane and Walker Review of Systems Review of Systems: All systems reviewed & are unremarkable except as noted in HPI & below Physical Exam Physical Exam: Constitutional: In acute distress secondary to pain HEENT: EOMI, PERRLA Respiratory system: Decreased air entry bilaterally, no rhonchi, mild crackles bilateral lower lobes, positive expiratory wheeze bilaterally CVS: S1-S2 positive, no murmurs or gallops, tachycardia Abdomen: Tense, diffuse mild tenderness, no rebound, peritoneal dialysis catheter in place Extremities: +2 pulses bilaterally radialis/ dorsalis pedis, no cyanosis, no edema Neuro: Awake alert oriented x3 Psych: Normal mood and affect G/U: No Vega Skin: no rashes, warm and dry Lymphatic: no cervical or axillary lymphadenopathy Results & Data Results & Data Vital Signs (Past 12 Hours) Vital Signs Temp Pulse Pulse Pulse Resp BP BP 09/09/22 15:41 37.1 C 95 H 18 153/92 H 09/09/22 11:17 36.5 C 64 16 132/79 09/09/22 10:02 09/09/22 06:45 36.7 C 80 20 09/09/22 07:47 72 09/09/22 07:37 36.7 C 80 20 112/66 09/09/22 04:34 36.8 C 75 14 118/66 Pulse Ox O2 Del Method 09/09/22 15:41 93 Room Air 09/09/22 11:17 91 Room Air 09/09/22 10:02 Room Air 09/09/22 06:45 09/09/22 07:47 09/09/22 07:37 98 Room Air 09/09/22 04:34 98 Room Air Laboratory Results 09/09/22 06:59 Coding Level of Care Code 73059 CRITICAL CARE 1ST 30-74M Diagnoses Bowel obstruction K56.609 Hypokalemia E87.6 Sepsis A41.9 Stercoral colitis K52.89 Type 2 diabetes, diet controlled E11.9 ESRD (end stage renal disease) on dialysis N18.6; Z99.2 Glaucoma H40.9 Time Spent (min) 40
[2022-09-09 16:17] LABS: BUN Creatinine Ratio 7.2 (10-20); Calcium 8.4 mg/dl (8.6-10.3); Creatinine Clr Calc Pharmacy 10.5 ml/min; Est GFR (African American) 11.2 ml/min; Est GFR (Non-African American) 9.7 ml/min; Potassium 3.6 mmol/L (3.5-5.1)
[2022-09-09] MEDS ORDERED: VANCOMYCIN CONSULT ACTIVE PRN (16:19)
[2022-09-09] MEDS ORDERED: VANCOMYCIN HCL 1,500 MG in SODIUM CHLORIDE 0.9% 500 ML IV STA (16:35)
--- NOTE | 2022-09-09 17:25 | Surgery Progress Note ---
Date of Service September 09, 2022 Assessment & Plan (1) Bowel obstruction: Plan: Patient having more abdominal pain and his KUB shows worsening bowel obstruction GI and nurses unable to disimpact his rectum Repeat examination of his peritoneal fluid shows increasing white blood cells which may be an indication of translocation of bacteria Patient requires emergent abdominal exploration likely colostomy possible bowel resection May attempt to evacuate his rectum however this is not a priority at this time Patient will have to go to the ICU postop We will need to remove his peritoneal catheter and he will need hemodialysis Admission and Anticipated Discharge Date Admission Date: September 05, 2022 Results & Data Vital Signs (Past 12 Hours) Vital Signs Temp Pulse Pulse Pulse Resp BP BP 09/09/22 16:46 83 09/09/22 16:20 37.1 C 95 H 64 18 09/09/22 10:45 36.5 C 64 16 132/79 09/09/22 15:41 37.1 C 95 H 18 153/92 H 09/09/22 11:17 36.5 C 64 16 132/79 09/09/22 10:02 09/09/22 06:45 36.7 C 80 20 09/09/22 07:47 72 09/09/22 07:37 36.7 C 80 20 112/66 Pulse Ox O2 Del Method 09/09/22 16:46 09/09/22 16:20 09/09/22 10:45 09/09/22 15:41 93 Room Air 09/09/22 11:17 91 Room Air 09/09/22 10:02 Room Air 09/09/22 06:45 09/09/22 07:47 09/09/22 07:37 98 Room Air PG Care Time/CCT Total # of Minutes Spent Total Time Spent with Patient: Total time spent is greater than 50% in coordination of care (as documented) at patient's floor/unit and/or counseling patient: Coding Level of Care Code None Diagnoses Bowel obstruction K56.609
--- NOTE | 2022-09-09 17:35 | XRay Report ---
KUB CLINICAL HISTORY: Enteric tube placement. Small bowel obstruction. FINDINGS: 2 AP, portable, upright views of the lower chest and upper abdomen are correlated with abdo keo CT and radiographs performed the same day 09/09/2022. Enteric tube has been placed. The tip proje cts over diaphragm of the mid stomach. There is evidence of persistent high-grade small bowel obstruc tion. Gaseous distention of the stomach has decreased from previous. Title is a ventriculoperitoneal free air are again suggested below the diaphragm. This was better assessed on today's CT scan. There are no abnormal abdominal calcifications. The skeletal structures are osteopenic. Spondylotic and pos tsurgical change is partially visualized in the lumbar spine. There is a subacute-appearing left late ral rib fracture. IMPRESSION: 1. An enteric tube has been placed as above. 2. Persistent high-grade small bowel obstruction. 3. Small foci of intraperitoneal free air below the diaphragm were better assessed on today's CT scan . Electronically signed by: Rayshawn Javed M.D. 09/09/2022 5:34 PM
[2022-09-09] MEDS ORDERED: fentaNYL citrate PF 100 MCG/2 ML VIAL ONE (18:03)
--- NOTE | 2022-09-09 18:05 | Anesthesiology Consultation ---
Date of Service September 09, 2022 Assessment & Plan Chart Review Chart Review: Acceptable Risk for Surgery and Patient NOT seen in Pre Admission Testing Consults Requested none ASA [id number] Proposed Anesthesia Anesthesia Type: General Anesthesia Line Insertion: Arterial line and Central Venous Catheter Risk / Benefits Reviewed With: PT / POA / Parent / Guardian, Accepts Plan and Informed Consent Obtained History Surgery Operation Date: 09/09/22 17:15 Proposed Procedures p Exploratory Laparotomy - Kishor Jorge MD, FACS Height/Weight Height: 5 ft 6 in Weight: 62.7 kg Allergies Allergy/AdvReac Type Severity Reaction Status Date / Time No Known Allergies Allergy Verified 09/03/22 13:55 Medications Home Medications Medication Instructions Recorded Confirmed Last Taken allopurinol 100 mg tablet 200 mg PO QAM 03/23/21 09/05/22 09/03/22 latanoprost 0.005 % eye drops 1 drp OPB HS 03/23/21 09/05/22 09/02/22 triamcinolone acetonide 0.1 % 1 applic topical DIRECTED PRN 03/23/21 09/05/22 09/02/22 topical ointment Skin Irritation torsemide 100 mg tablet 100 mg PO DAILY 05/26/22 09/05/22 09/03/22 aspirin 81 mg tablet,delayed 81 mg PO QAM #30 tabs 05/30/22 09/05/22 09/03/22 release atorvastatin 40 mg tablet 40 mg PO QAM #30 tabs 05/30/22 09/05/22 09/03/22 metoprolol succinate 25 mg 12.5 mg PO QAM 09/03/22 09/05/22 09/03/22 tablet,extended release 24 hr potassium chloride 20 mEq 20 meq PO .EVERY OTHER DAY 09/03/22 09/05/22 09/01/22 tablet,extended release(part/cryst) tramadol 50 mg tablet 50 - 100 mg PO Q6H PRN Pain 09/03/22 09/05/22 09/02/22 sevelamer carbonate 800 mg tablet 800 mg PO TID 09/05/22 09/05/22 Unknown vitamin B complex-vitamin C-folic 1 tab PO DAILY 09/05/22 09/05/22 Unknown acid 0.8 mg tablet (Belinda-Moose) Active Medications Generic Name Dose Route Start Last Admin Trade Name Freq PRN Reason Stop Dose Admin Acetaminophen 1,000 mg 09/06/22 09:34 09/08/22 10:27 Acetaminophen 500 Mg Tab PO 10/05/22 13:55 1,000 mg Q8H PRN Administration pain/fever Allopurinol 200 mg 09/06/22 09:00 09/09/22 08:39 Allopurinol 100 Mg Tab PO 10/06/22 08:59 200 mg QAM MITZY Administration Aspirin 81 mg 09/06/22 09:00 09/09/22 08:40 Aspirin 81 Mg Ectab PO 10/06/22 08:59 81 mg QAM MITZY Administration Atorvastatin Calcium 40 mg 09/06/22 09:00 09/09/22 08:40 Atorvastatin 40 Mg Tab PO 10/06/22 08:59 40 mg QAM MITZY Administration Heparin Sodium (Porcine) 5,000 units 09/06/22 14:00 09/09/22 15:06 Heparin Sod 5,000 Unit/0.5 Ml Vial SC 10/06/22 13:59 Not Given Q8 MITZY Promethazine HCl 6.25 mg/ 50.25 mls @ 201 mls/hr 09/09/22 02:06 09/09/22 10:20 Sodium Chloride IV 10/09/22 02:05 Infused Q6H PRN Infusion Nausea And Vomiting Parenteral Electrolytes 1,000 mls @ 50 mls/hr 09/09/22 09:30 09/09/22 10:20 Plasma-Lyte A Ph 7.4 IV 10/09/22 09:29 50 mls/hr .Q20H MITZY Infusion Ceftazidime 1,000 mg/ Dextrose 60 mls @ 100 mls/hr 09/09/22 16:30 09/09/22 17:31 IV 09/19/22 16:29 Infused Q12H MITZY Infusion Protocol Vancomycin HCl 1,500 mg/ 530 mls @ 200 mls/hr 09/09/22 16:35 09/09/22 17:31 Sodium Chloride IV 09/09/22 19:13 200 mls/hr ONE STA Administration Latanoprost 1 drops 09/05/22 21:00 09/08/22 20:22 Latanoprost 0.005% Op Soln 2.5 Ml Btl OPB 10/05/22 20:59 1 drops HS MITZY Administration Linaclotide 145 mcg 09/06/22 16:30 09/09/22 08:40 Linaclotide 145 Mcg Capsule PO 10/06/22 16:29 145 mcg DAILY MITZY Administration Polyethylene Glycol 17 gm 09/05/22 13:56 09/06/22 08:38 Polyethylene (Miralax) 17 Gm Pack PO 10/05/22 13:55 17 gm DAILY PRN Administration Constipation Potassium Chloride 20 meq 09/09/22 09:00 09/09/22 08:39 Potassium Chloride Crtab 20 Meq Tabcr PO 10/09/22 08:59 20 meq Q2D MITZY Administration Senna/Docusate Sodium 1 tab 09/06/22 09:00 09/09/22 08:40 Docusate Sodium/Senna 50/8.6mg Tab PO 10/06/22 08:59 1 tab QAM MITZY Administration Sevelamer HCl 800 mg 09/05/22 17:00 09/09/22 16:45 Sevelamer Hcl 800 Mg Tablet PO 10/05/22 16:59 Not Given TIDM MITZY Tramadol HCl 50 mg 09/05/22 15:12 09/06/22 13:28 Tramadol Hcl 50 Mg Tablet PO 10/05/22 15:11 50 mg Q4H PRN Administration Moderate Pain (Scale 4, 5, 6) Vitamin B Complex/Folic Acid 1 cap 09/06/22 09:00 09/09/22 08:40 Nephrocaps PO 10/06/22 08:59 1 cap DAILY MITZY Administration NPO Date Last Intake of Fluids: 09/08/22 Time Last Intake of Fluids: 08:00 Date Last Intake of Solids: 09/08/22 Time Last Intake of Solids: 08:00 Past Medical History Medical History Anemia of renal disease Constipation due to opioid therapy ESRD (end stage renal disease) on dialysis Peritoneal dialysis Glaucoma Gout History of nephrolithiasis HLD (hyperlipidemia) HTN (hypertension) Lumbar stenosis with neurogenic claudication Prostate cancer Spondylolisthesis of lumbar region Stercoral colitis Type 2 diabetes, diet controlled Exercise / Class Metabolic Activity II 4-5 Yardwork/Stairs/Walk up hill Past Family History Family History Mother , at 88 Stroke Father , in 60s Heart disease Past Surgical History Surgical History History of lumbar fusion Hx of cataract extraction Hx of colonoscopy Hx of prostatectomy robotic assisted retropubic 2013 Past Anesthesia History No Hx of Anesthesia Complications and No Family Hx of Anesthesia Complications History of PONV No Hx of PONV and No Hx of Motion Sickness Social History Smoking Status: Never smoker tobacco type: smokeless tobacco Do You Dip or Chew Tobacco: Yes (1/2 can per day) Hx Alcohol Use: No Hx Substance Use: No Physical Exam Vital Signs Last Vital Signs Temp 37.1 C 09/09/22 16:20 Pulse 83 09/09/22 16:46 Resp 18 09/09/22 16:20 BP 153/92 H 09/09/22 15:41 Pulse Ox 93 09/09/22 15:41 O2 Del Method Room Air 09/09/22 15:[address] ENMT Mouth: no dentition abnormality Thyromental Distance: > or= 3.5 Finger Breadths Mallampati Class: II Neck normal visual inspection Respiratory normal respiratory effort Auscultation: lungs clear to auscultation bilaterally Cardiovascular Rate/Rhythm: regular rate and regular rhythm Psychiatric Orientation: alert Testing Laboratory Results 09/09/22 06:59 09/09/22 15:27 PT 11.1 Seconds (9.0-12.0) 09/05/22 11:31 INR 1.0 (0.9-1.1) 09/05/22 11:31 APTT 27.2 Seconds (21.0-31.0) 09/05/22 11:31 Urine Color 09/05/22 13:55 Urine Appearance (Clear) 09/05/22 13:55 Urine pH (4.5-7.5) 09/05/22 13:55 Ur Specific [place] (1.000-1.030) 09/05/22 13:55 Urine Protein (Negative) 09/05/22 13:55 Urine Glucose (UA) (Negative) 09/05/22 13:55 Urine Ketones (Negative) 09/05/22 13:55 Urine Nitrite (Negative) 09/05/22 13:55 Ur Leukocyte Esterase (Negative) 09/05/22 13:55 Urine WBC (Auto) /hpf (0-5) 09/05/22 13:55 Urine RBC (Auto) /hpf (0-4) 09/05/22 13:55 U Hyaline Cast (Auto) /lpf (0-5) 09/05/22 13:55 U Epithel Cells (Auto) /lpf (0-5) 09/05/22 13:55 Urine Bacteria (Auto) (Negative) 09/05/22 13:55 09/09/22 13:30 Gram Stain - Final Peritoneal dialysis fluid 09/05/22 13:55 Gram Stain - Final Peritoneal Fluid Aerobic and Anaerobic Culture - Preliminary No growth to date. 09/05/22 12:10 Aerobic Blood Culture - Preliminary Blood No growth in Aerobic bottle after 48 hours. Anaerobic Blood Culture - Preliminary No growth in Anaerobic bottle after 48 hours. 09/05/22 11:31 Aerobic Blood Culture - Preliminary Blood No growth in Aerobic bottle after 48 hours. Anaerobic Blood Culture - Preliminary No growth in Anaerobic bottle after 48 hours.
[2022-09-09] MEDS ORDERED: ARFORMOTEROL TART 15MCG/2ML VIAL INH SCH (19:00)
[2022-09-09] MEDS ORDERED: LIDOCAINE 2% 2 ML VIAL/AMP(20MG/ML) INFIL ONE (19:08)
[2022-09-09] MEDS ORDERED: PROPOFOL IV EMULSION 10 MG/ML 20 ML VIAL IV ONE (19:08)
[2022-09-09] MEDS ORDERED: SUCCINYLCHOLINE CHLORIDE 20 MG/ML 10 ML VIAL IV ONE (19:09)
[2022-09-09] MEDS ORDERED: ROCURONIUM BROMIDE 10 MG/ML 5 ML VIAL IV ONE (19:09)
[2022-09-09] MEDS ORDERED: ALBUT/IPRATROP 3MG/0.5MG NEB 3 ML VIAL ONE (19:22)
[2022-09-09] MEDS: FORMOTEROL 20 MCG/2 ML VIAL INH SCH ×2 (19:27→21:09)
[2022-09-09] MEDS: BUDESONIDE 0.25 MG/2 ML VIAL (PULMICORT) NEB SCH ×2 (19:27→21:09)
--- NOTE | 2022-09-09 19:57 | Post Operative Brief Note ---
PG Immediate Post Op with CF Date of Surgery September 09, 2022 Pre & Post Diagnosis Operation Date: 09/09/22 17:15 Pre-Op Diagnosis: Bowel obstruction Post-Op Diagnosis: Bowel obstruction I identified the patient and participated in the time-out.: Yes Procedure Operation Date: 09/09/22 17:15 Actual Procedures p Exploratory Laparotomy for Bowel Obstruction - Kishor Jorge MD, FACS Loop sigmoid colostomy Removal of peritoneal dialysis catheter Surgeon Kishor Jorge MD, FACS Typewriters Functional Tester cheryl ramon Estimated Blood Loss 20 Findings Consistent with Post-Op Diagnosis Torsion of the small bowel, dilated bladder Specimens Specimen Description: #1Microbiology Peritoneal Fluid for Routine culture and sentivity with anaerobic and aerobic
[2022-09-09] MEDS ORDERED: MIDAZOLAM HCL 1 MG/ML 2ML VIAL ONE (20:09)
--- NOTE | 2022-09-09 20:11 | Operative Report ---
PG Post Operative Report Pre & Post Diagnosis Operation Date: 09/09/22 17:15 Pre-Op Diagnosis: Bowel obstruction Post-Op Diagnosis: Bowel obstruction I identified the patient and participated in the time-out.: Yes Procedure Operation Date: 09/09/22 17:15 Actual Procedures p Exploratory Laparotomy for Bowel Obstruction - Kishor Jorge MD, FACS Surgeon Kishor Jorge MD, FACS Line Servicer cheryl ramon Estimated Blood Loss 20 Findings Consistent with Post-Op Diagnosis Specimens None Description of Procedure Patient was brought in the operating room for a small bowel obstruction and also rectal obstruction He is placed the operating room table initially in the lithotomy position-he underwent disimpaction of the rectum He was then placed supine-pneumatic stockings were in place nasogastric tube and A-line were in place His abdomen was prepped and draped in usual fashion Midline incision was made from above the umbilicus to the pubis Entering the abdominal cavity and encountered some cloudy fluid which was cultured he had a peritoneal catheter in place which was removed he did have some torsion of the small bowel into the right upper quadrant seem to be causing dilation of the proximal small bowel possibly related to the peritoneal catheter-there were no specific adhesions The small bowel was traced from the ligament of Treitz to the cecum completely viable with no other significant obstruction Because the patient's colonic obstruction I felt this loop sigmoid colostomy would be best Sigmoid colon was mobilized and brought out through the left abdominal wall secured to the fascia and skin using both 2-0 chromic and 0 chromic suture The abdomen was irrigated with saline solution The fascia closed using both running and interrupted #1 PDS suture, also some #1 chromic for the peritoneum Quarter inch Christy drain placed in subcutaneous space secured to the skin using 4-0 nylon suture Skin reapproximated using alessia Colostomy was opened it was completely viable Stoma appliance placed and dressing applied patient transferred to the intensive care unit in guarded condition I attest to the content of the Intraoperative Record and any orders documented therein. Any exceptions are noted below.
--- NOTE | 2022-09-09 20:22 | XRay Report ---
KUB CLINICAL HISTORY: Intraoperative radiographs. Small bowel obstruction. Incorrect sponge count. FINDINGS: 2 AP, portable, supine abdominal radiographs are correlated with [facility] performed earlier the same day 09/09/2022. An enteric tube is unchanged in position. There is co ntinued gaseous distention of the small bowel loops indicating persistent obstruction. Foci of intrap eritoneal free air seen on today's CT scan are not well-visualized. Midline skin clips project over t he lower abdomen and pelvis. A presumed surgical drain is in place. No additional radiodense foreign body is identified. Excreted IV contrast is present within the bladder lumen. There are no abnormal a bdominal calcifications. The skeletal structures are osteopenic and appear intact. Spondylotic and po stsurgical change is noted in the lumbar spine. IMPRESSION: 1. There is no radiodense foreign body identified to suggest a retained surgical sponge. 2. Persistent small bowel obstruction. 3. Midline skin clips and a presumed surgical drain project over the pelvis. Correlate clinically. Electronically signed by: Rayshawn Javed M.D. 09/09/2022 8:20 PM
[2022-09-09] MEDS ORDERED: PROPOFOL IV EMULSION 10 MG/ML 100 ML VIAL IV ONE (20:42)
[2022-09-09] MEDS ORDERED: fentaNYL citrate PF 100 MCG/2 ML VIAL IV PRN (20:44)
[2022-09-09] MEDS ORDERED: STAT IV Infusion **Titration per Protocol STA ×2 (20:44→20:46)
[2022-09-09] MEDS ORDERED: PROPOFOL BOLUS FROM BAG IV PRN (20:44)
[2022-09-09] MEDS ORDERED: fentaNYL citrate 2,500 MCG/250 ML BAG IV SCH (21:00)
--- NOTE | 2022-09-09 21:02 | Anesthesiology Progress Note ---
Date of Service September 09, 2022 Anesthesia Post Procedure Vital Signs Vital Signs: Temp Pulse Pulse Pulse Pulse Resp BP 09/09/22 16:46 83 09/09/22 16:20 37.1 C 95 H 64 18 09/09/22 10:45 36.5 C 64 16 09/09/22 15:41 37.1 C 95 H 18 09/09/22 11:17 36.5 C 64 16 132/79 09/09/22 10:02 09/09/22 06:45 36.7 C 80 20 09/09/22 07:47 72 09/09/22 07:37 36.7 C 80 20 112/66 09/09/22 04:34 36.8 C 75 14 118/66 09/09/22 02:59 36.8 C 72 16 09/08/22 22:12 87 09/08/22 22:59 37.2 C 85 16 BP Pulse Ox O2 Del Method 09/09/22 16:46 09/09/22 16:20 09/09/22 10:45 132/79 09/09/22 15:41 153/92 H 93 Room Air 09/09/22 11:17 91 Room Air 09/09/22 10:02 Room Air 09/09/22 06:45 09/09/22 07:47 09/09/22 07:37 98 Room Air 09/09/22 04:34 98 Room Air 09/09/22 02:59 108/64 96 Room Air 09/08/22 22:12 09/08/22 22:59 111/64 97 Room Air Pain Intensity Medial Abdomen: Pain Intensity: 8 Back: Pain Intensity: 2 Transfer of Care Handoff Completed per policy Notes Mental Status: see notes below Patient Amnestic to Procedure: Yes Nausea / Vomiting: adequately controlled Pain: adequately controlled Airway Patency, RR, SpO2: stable & adequate BP & HR: stable & adequate Hydration State: stable & adequate Anesthetic Complications: no major complications apparent Notes: Patient left intubated as planned and he does not currently have access for dialysis and fluid shifts are expected after surgery. HD temporary catheter planned for placement tomorrow by ICU. Report given to ICU ASSOCIATE DIRECTOR QA.
[2022-09-09 21:09] LABS: iSTAT Art Bld Gas pCO2 Correct 31 mmHg (35-46); iSTAT Art Bld Gas pH Corrected 7.448 (7.35-7.45); iSTAT Arterial Blood Gas HCO3 22 meg/L (19-24); iSTAT Arterial Blood Gas pCO2 32 mmHg (35-46); iSTAT Arterial Blood Gas pH 7.44 (7.35-7.45); iSTAT Arterial Blood Gas pO2 130 mmHg (80-95); iSTAT Arterial Blood Gas pO2 C 127; iSTAT Carbon Dioxide 23 mmol/L (24-31); iSTAT FiO2 35 %; iSTAT Hematocrit 37 % (42-52); iSTAT Hemoglobin 12.6 g/dl (14.0-18.0); iSTAT Potassium 3.2 mmol/L (3.3-5.0); iSTAT Site Art Line; iSTAT Sodium 132 mmol/L (135-144)
--- NOTE | 2022-09-09 21:21 | Anesthesia Procedure Note ---
Anesthesia Procedure Note Central Line Note Indication: Central intravenous access Consent: Risk / Benefits Reviewed With: PT / POA / Parent / Guardian, Accepts Plan, Informed Consent Obtained and All Questions Answered Monitors attached: Blood Pressure, CO2, EKG and Pulse Oximetry Oxygen delivery method: ETT Time out completed: Yes Premedication: General anesthesia Laterality: Right Location: Internal Jugular Surgical Prep: Hand hygeine: Soap and water and Alcohol based hand rub Equipment/Supplies: Cap, Mask, Sterile gown, Sterile gloves, Sterile drapes and Sterile procedures used Skin prep: Chloraprep Ultrasound Guidance: Ultrasound used: Yes US equipment and supplies: Sterile Gel and Sterile Probe Cover Central line lumen: Triple Attempts: 1 Post-Procedure: Pt hemodynamically stable, Pt tolerates well, No complication and Post placement CXR ordered
[2022-09-09] MEDS: propofoL 1,000 MG/100 ML VIAL IV SCH (21:35)
[2022-09-09] MEDS: fentaNYL BOLUS from BAG IV PRN (21:38)
[2022-09-09 21:55] LABS: Basophils # (auto) 0.03 K/uL (0-0.2); Basophils % (auto) 0.3 %; Eosinophils # (auto) 0.07 K/uL (0-0.50); Eosinophils % (auto) 0.7 %; Hematocrit (blood only) 31.8 % (42.0-52.0); Hemoglobin 10.9 g/dl (14.0-18.0); Immature Granulocytes # (auto) 0.05 K/uL (0.01-0.20); Immature Granulocytes % (auto) 0.5 %; Lymphocytes # (auto) 0.62 K/uL (1.2-3.4); Lymphocytes % (auto) 6.4 %; Mean Corpuscular Hemoglobin 33.3 pg (25.0-34.0); Mean Corpuscular Hgb Conc 34.3 g/dL (32.0-36.0); Mean Corpuscular Volume 97.2 fL (80.0-100.0); Mean Platelet Volume 9.5 fL (9.4-12.4); Monocytes # (auto) 0.47 K/uL (0.11-0.59); Monocytes % (auto) 4.9 %; Neutrophils # (auto) 8.44 K/uL (1.40-6.50); Neutrophils % (auto) 87.2 %; Platelet Count 338 K/uL (130-400); RDW Coefficient of Variation 16.2 % (11.5-14.5); RDW Standard Deviation 56.9 fL (36.4-46.3); Red Blood Count 3.27 M/uL (4.70-6.10); White Blood Count 9.68 K/ul (4.8-10.8)
[2022-09-09 22:05] LABS: BUN Creatinine Ratio 7.3 (10-20); Calcium 7.8 mg/dl (8.6-10.3); Creatinine Clr Calc Pharmacy 11.3 ml/min; Est GFR (African American) 12.3 ml/min; Est GFR (Non-African American) 10.6 ml/min; Magnesium 1.8 mg/dl (1.7-2.4); Potassium 3.4 mmol/L (3.5-5.1)
[2022-09-09] MEDS: ICU Protocol for HYPERglycemia SCH (22:13)
--- NOTE | 2022-09-09 23:17 | XRay Report ---
SINGLE VIEW CHEST CLINICAL HISTORY: Catheter placement. FINDINGS: 2 AP, portable, supine chest radiographs are compared to study dated 09/05/2022. A right inte rnal jugular central venous catheter has been placed. The tip projects over the right atrium. An endo tracheal tube has been placed. The tip projects approximately 2 cm above the t[place]. An enteric tube is unchanged in position. The tip projects below the diaphragm over the proximal stomach. The cardiom ediastinal heart is enlarged noting atherosclerotic calcification of the thoracic aorta. The pulmonar y vasculature is noncongested. There are low lung volumes with bibasilar atelectasis. No large pleura l effusion or pneumothorax is seen. The skeletal structures are osteopenic. The bony thorax is grossl y intact. Fusion hardware is seen in the lumbar spine. A small bowel obstruction is noted in the uppe r abdomen. IMPRESSION: 1. Line and tube placement as above. No pneumothorax is seen post procedure. 2. Cardiomegaly without radiographic evidence of congestive failure. 3. Low lung volumes with bibasilar atelectasis. 4. Small bowel obstruction is noted in the upper abdomen. ACT 112: Negative or not required by law. Electronically signed by: Rayshawn Javed M.D. 09/09/2022 11:15 PM
[2022-09-09] MEDS: LATANOPROST 0.005% OP SOLN 2.5 ML BTL OPB SCH (23:43)
[2022-09-10] MEDS ORDERED: STAT IV Infusion **Titration per Protocol STA (00:47)
[2022-09-10] MEDS ORDERED: NOREPINEPHRINE/D5W 4 MG/250 ML IV ONE (00:49)
[2022-09-10] MEDS ORDERED: NOREPINEPHRINE/D5W 4 MG/250 ML PLCT IV SCH (01:00)
[2022-09-10] MEDS: fentaNYL BOLUS from BAG IV PRN (01:24)
[2022-09-10 04:06] LABS: iSTAT Art Bld Gas pCO2 Correct 30 mmHg (35-46); iSTAT Art Bld Gas pH Corrected 7.516 (7.35-7.45); iSTAT Arterial Blood Gas HCO3 24 meg/L (19-24); iSTAT Arterial Blood Gas pCO2 30 mmHg (35-46); iSTAT Arterial Blood Gas pH 7.52 (7.35-7.45); iSTAT Arterial Blood Gas pO2 97 mmHg (80-95); iSTAT Arterial Blood Gas pO2 C 99; iSTAT Carbon Dioxide 25 mmol/L (24-31); iSTAT FiO2 25 %; iSTAT Hematocrit 29 % (42-52); iSTAT Hemoglobin 9.9 g/dl (14.0-18.0); iSTAT Potassium 3.5 mmol/L (3.3-5.0); iSTAT Site Art Line; iSTAT Sodium 131 mmol/L (135-144)
[2022-09-10 04:49] LABS: Basophils # (auto) 0.04 K/uL (0-0.2); Basophils % (auto) 0.4 %; Eosinophils # (auto) 0.17 K/uL (0-0.50); Eosinophils % (auto) 1.6 %; Hematocrit (blood only) 29.2 % (42.0-52.0); Immature Granulocytes # (auto) 0.04 K/uL (0.01-0.20); Immature Granulocytes % (auto) 0.4 %; Lymphocytes # (auto) 1.41 K/uL (1.2-3.4); Lymphocytes % (auto) 13.3 %; Mean Corpuscular Hgb Conc 34.2 g/dL (32.0-36.0); Mean Corpuscular Volume 96.4 fL (80.0-100.0); Mean Platelet Volume 9.4 fL (9.4-12.4); Monocytes # (auto) 0.62 K/uL (0.11-0.59); Monocytes % (auto) 5.8 %; Neutrophils # (auto) 8.33 K/uL (1.40-6.50); Neutrophils % (auto) 78.5 %; Platelet Count 370 K/uL (130-400); RDW Coefficient of Variation 16.1 % (11.5-14.5); Red Blood Count 3.03 M/uL (4.70-6.10); White Blood Count 10.61 K/ul (4.8-10.8)
[2022-09-10 05:08] LABS: BUN Creatinine Ratio 7.2 (10-20); Calcium 7.6 mg/dl (8.6-10.3); Creatinine Clr Calc Pharmacy 10.6 ml/min; Est GFR (African American) 11.3 ml/min; Est GFR (Non-African American) 9.8 ml/min; Magnesium 1.8 mg/dl (1.7-2.4); Potassium 3.5 mmol/L (3.5-5.1)
[2022-09-10] MEDS: propofoL 1,000 MG/100 ML VIAL IV SCH ×2 (06:31→16:04)
[2022-09-10] MEDS: FORMOTEROL 20 MCG/2 ML VIAL INH SCH ×2 (07:07→19:16)
[2022-09-10] MEDS: BUDESONIDE 0.25 MG/2 ML VIAL (PULMICORT) NEB SCH ×2 (07:07→19:16)
[2022-09-10] MEDS: ICU Protocol for HYPERglycemia SCH ×4 (07:39→20:11)
--- NOTE | 2022-09-10 07:42 | Critical Care Progress Note ---
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 Developed high-grade SBO. 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 Plan: In/out: +3.2 L, urine output 783 Potassium and magnesium being replaced Plan is to have hemodialysis today. I will place a right IJ dialysis catheter. Case was discussed with nephrology After the dialysis catheter is placed in trial of SBT. Continue with IV antibiotics for abdominal peritonitis Try to wean off vasopressors as able Patient's was also called and updated regarding current condition I have personally spent 38 minutes of critical care time in the direct management of this patient. This is a life/limb threatening event. This includes time spent evaluating patient, direct bedside care, chart review, placing orders, interpretation of diagnostic studies, discussion with consultants, patient, and family members, as well as other required patient management activities. This time is exclusive of all separately billable procedures, and teaching time and separate from and in addition to any other critical care service time. Admission and Anticipated Discharge Date Admission Date: September 05, 2022 Subjective Patient seen and examined at bedside. No acute distress, no adverse events overnight. Patient was on propofol 30, fentanyl 50 and Levophed 0.04 at the time of examination Map was in the low 70s. He was RASS -1, answering all the questions appropriately Denied any abdominal pain, no headache, no chest pain NG tube to suction Review of Systems Review of Systems: All systems reviewed & are unremarkable except as noted in Subjective Physical Exam Physical Exam: Constitutional: No acute distress HEENT: EOMI, PERRLA Respiratory system: Decreased air entry bilaterally, no rhonchi, mild crackles bilateral lower lobes, no wheeze CVS: S1-S2 positive, no murmurs or gallops Abdomen: Soft, Non tender, no rebound, left-sided ileostomy, midline incision dressing in place Extremities: +2 pulses bilaterally radialis/ dorsalis pedis, no cyanosis, no edema Neuro: Intubated, RASS -1, moving all extremities, following simple commands Psych: Unable to access G/U: No [place] Skin: no rashes, warm and dry Lymphatic: no cervical or axillary lymphadenopathy Results & Data Results & Data Vital Signs (Past 12 Hours) Vital Signs Temp Pulse Pulse Pulse Resp BP BP 09/10/22 07:02 63 14 09/10/22 06:00 37.0 C 66 12 09/10/22 06:00 116/66 09/10/22 05:30 37.1 C 68 12 09/10/22 05:00 37.1 C 62 12 09/10/22 05:00 125/69 09/10/22 04:30 37.2 C 71 12 09/10/22 04:00 37.2 C 77 16 09/10/22 04:00 114/74 09/10/22 04:00 09/10/22 03:50 60 15 09/10/22 03:30 37.3 C 74 28 H 09/10/22 03:00 37.2 C 66 12 09/10/22 03:00 132/69 09/10/22 02:30 37.2 C 72 12 09/10/22 02:00 37.0 C 64 15 09/10/22 02:00 113/68 09/10/22 01:30 36.8 C 80 21 09/10/22 01:00 36.5 C 79 14 09/10/22 01:00 123/72 09/10/22 00:30 36.1 C L 78 14 09/10/22 00:00 35.6 C L 70 14 09/10/22 00:00 112/70 09/09/22 23:30 35.2 C L 58 L 14 09/09/22 23:00 34.8 C L 65 15 09/09/22 22:30 34.5 C L 63 14 09/09/22 22:57 63 14 09/09/22 22:22 09/09/22 22:00 34.5 C L 61 14 140/80 09/09/22 21:30 34.4 C L 77 14 09/09/22 21:25 164/106 H 09/09/22 21:25 34.3 C L 83 14 09/09/22 21:18 34.4 C L 69 14 09/09/22 21:51 72 09/09/22 21:10 75 14 09/09/22 21:01 14 09/09/22 20:30 61 18 09/09/22 20:55 34.3 C L 78 14 134/79 09/09/22 20:50 33.7 C L 76 14 154/87 H 09/09/22 20:40 34.1 C L 81 18 129/66 Pulse Ox O2 Del Method FiO2 09/10/22 07:02 100 25 09/10/22 06:00 100 09/10/22 06:00 09/10/22 05:30 99 09/10/22 05:00 100 09/10/22 05:00 09/10/22 04:30 98 09/10/22 04:00 98 09/10/22 04:00 09/10/22 04:00 25 09/10/22 03:50 99 25 09/10/22 03:30 98 09/10/22 03:00 99 09/10/22 03:00 09/10/22 02:30 98 09/10/22 02:00 98 09/10/22 02:00 09/10/22 01:30 98 09/10/22 01:00 98 09/10/22 01:00 09/10/22 00:30 99 09/10/22 00:00 99 09/10/22 00:00 09/09/22 23:30 100 09/09/22 23:00 09/09/22 22:30 100 09/09/22 22:57 100 25 09/09/22 22:22 Mechanical Vent 30 09/09/22 22:00 100 Mechanical Vent 09/09/22 21:30 100 09/09/22 21:25 09/09/22 21:25 100 09/09/22 21:18 100 09/09/22 21:51 09/09/22 21:10 100 Mechanical Vent 30 09/09/22 21:01 30 09/09/22 20:30 100 35 09/09/22 20:55 100 Mechanical Vent 30 09/09/22 20:50 100 Mechanical Vent 30 09/09/22 20:40 100 Mechanical Vent 35 Laboratory Results 09/10/22 04:09 09/10/22 04:09 Coding Level of Care Code 37777 CRITICAL CARE 1ST 30-74M Diagnoses Bowel obstruction K56.609 Hypokalemia E87.6 Sepsis A41.9 Stercoral colitis K52.89 Type 2 diabetes, diet controlled E11.9 ESRD (end stage renal disease) on dialysis N18.6; Z99.2 Glaucoma H40.9 Time Spent (min) 38
[2022-09-10] MEDS: POTASSIUM CHLORIDE / WTR 10 MEQ/100 ML PLCT IV SCH ×2 (08:48→09:45)
[2022-09-10] MEDS: MAGNESIUM SULFATE / D5W 1 GM/100 ML BAG IV SCH ×2 (08:48→10:05)
[2022-09-10] MEDS ORDERED: SODIUM CHLORIDE 0.9% 1000ML 1,000 ML IV PRN (09:53)
--- NOTE | 2022-09-10 10:33 | Nephrology Progress Note ---
Date of Service September 10, 2022 Assessment & Plan (1) ESRD (end stage renal disease) on dialysis: Plan: ESRD on PD -PD catheter was taken out yesterday -He is for temporary dialysis catheter today -Electrolytes are within normal range, he is around 3 L positive, and continues to get fluids with antibiotics and IV infusion. Chances of him getting fluid overloaded is high. -We will dialyze him today with 250/500-BFR/DFR-UF of 1 L, keeping this MAP more than 65. Care coordinated with Dr. Thompson and Dr. Sexton. (2) Abdominal pain: Plan: - Patient is now ex lap with colostomy -Renally dose antibiotics. (3) Stercoral colitis: Admission and Anticipated Discharge Date Admission Date: September 05, 2022 Subjective Patient intubated , appears comfortable. Had ex lap yesterday, colostomy in situ On small dose of Levophed, systolic blood pressures have been in early 110s Review of Systems Review of Systems: Unobtainable due to cognitive status Physical Exam Physical Exam: General: Ill-appearing but comfortable, Intubated CV:RRR, S1 S2, no m/r/g Pulm:CTA b/l Abd/GI: Soft, colostomy bag in-situ Ext:no pretibial edema Results & Data Vital Signs (Past 12 Hours) Vital Signs Temp Pulse Resp BP Pulse Ox O2 Del Method FiO2 09/10/22 08:00 Mechanical Vent 09/10/22 08:00 58 L 09/10/22 08:00 25 09/10/22 07:02 63 14 100 25 09/10/22 06:00 37.0 C 66 12 100 09/10/22 06:00 116/66 09/10/22 05:30 37.1 C 68 12 99 09/10/22 05:00 37.1 C 62 12 100 09/10/22 05:00 125/69 09/10/22 04:30 37.2 C 71 12 98 09/10/22 04:00 37.2 C 77 16 98 09/10/22 04:00 114/74 09/10/22 04:00 25 09/10/22 03:50 60 15 99 25 09/10/22 03:30 37.3 C 74 28 H 98 09/10/22 03:00 37.2 C 66 12 99 09/10/22 03:00 132/69 09/10/22 02:30 37.2 C 72 12 98 09/10/22 02:00 37.0 C 64 15 98 09/10/22 02:00 113/68 09/10/22 01:30 36.8 C 80 21 98 09/10/22 01:00 36.5 C 79 14 98 09/10/22 01:00 123/72 09/10/22 00:30 36.1 C L 78 14 99 09/10/22 00:00 35.6 C L 70 14 99 09/10/22 00:00 112/70 09/09/22 23:30 35.2 C L 58 L 14 100 09/09/22 23:00 34.8 C L 65 15 09/09/22 22:30 34.5 C L 63 14 100 09/09/22 22:57 63 14 100 25 Laboratory Results 09/10/22 04:09 09/10/22 04:09
[2022-09-10] MEDS: PANTOprazole 40 MG in SYRINGE 0 ML IV SCH (10:47)
--- NOTE | 2022-09-10 11:15 | Hospitalist Progress Note ---
Date of Service September 10, 2022 Assessment & Plan (1) Bowel obstruction: (2) Status post exploratory laparotomy: (3) Colostomy in place: (4) Stercoral colitis: (5) Constipation due to opioid therapy: Plan: Presented on 09/05/22 with abd pain, constipation and had low BP BP improved with 250 ml bolus x 2. CT A/P on 09/05/22 showed Moderate to large amount of liquid stool seen throughout the colon including a 9 x 8 cm rectal stool ball, Mild rectal wall thickening for the degree of distention is again noted. There is also mild perirectal edema. This could represent a stercoral proctitis. A few scattered foci of pneumoperitoneum seen within the upper abdomen which is likely due to the patient's peritoneal dialysis catheter. This has improved in the interval. No evidence for a small bowel obstruction. Patient stated he always has low blood pressure due to his dialysis. Patient was started on empirical antibiotics on admission Infectious workup on admission was negative Antibiotics had been stopped on 09/07/22 after 48h of empirical therapy Chronic opioid induced constipation Patient was started on aggressive bowel regimen. Despite watery diarrhea, he continued to have pain and serial imaging showed persistent stool ball/rectal obstruction Repeat CT A/P on 09/08/22 noted no significant change in large stool ball within rectum, mild rectal wall thickening slightly increased, stool throughout colon, fluid filled mildly dilated small bowel without transition suggestive of ileus Repeat CT A/P 09/09/22 noted no significant change in pneumoperitoneum, increase in small bowel dilatation suggesting ileus or partial SBO, large stool in rectum Patient developed Small bowel obstruction as well on 09/09/22 Had exploratory laparotomy for bowel obstruction by Dr Jorge last night Currently POD 1 in ICU Discussed with ICU Defer vent and pressor management to him Possible extubation later today Continue IV vanc and ceftazidime for now (6) ESRD (end stage renal disease) on dialysis: Plan: Patient was on peritoneal dialysis 4x per day prior to admission Initial peritoneal fluid analysis on admission was negative for infection Repeat peritoneal fluid analysis on 09/09/22 showed increased WBC 2500 Likely due to bacterial translocation in setting of bowel obstruction Patient's PD catheter has been removed with ex lap ICU Dr merino place HD catheter to initiate HD Discussed with Home Health Specialist Dr Cordova (7) Type 2 diabetes, diet controlled: Plan: Previously on metformin, now diet controlled Blood glucose is well control Monitor (8) Stroke: Plan: Completed 21 days of DAPT Will resume ASA daily once enteral feeding is established (9) Anemia of renal disease: Plan: Hb 10 today Monitor (10) HLD (hyperlipidemia): (11) HTN (hypertension): Plan: Metoprolol and torsemide on hold for now (12) Gout: Plan: H/o Gout. Was on allopurinol (13) Lumbar stenosis with neurogenic claudication: (14) Hypokalemia: Plan: K is 3.5 today Monitor (15) Hyponatremia: Plan: Nephro on board Monitor Plan DVT prophylaxis-subcu heparin I spent a total of 55 minutes coordinating, documenting and providing care for this patient excluding time spent in performance of separately billed services Admission and Anticipated Discharge Date Admission Date: September 05, 2022 Subjective Patient seen and examined He is currently intubated and sedated He is on propofol, fentanyl and levophed. Review of Systems Review of Systems: Unobtainable due to endotracheal tube and Unobtainable due to reduced consciousness Physical Exam Constitutional: Intubated and sedated Respiratory: normal respiratory effort, lungs clear to auscultation ETT in situ Cardiovascular: Rate/Rhythm: regular rate and regular rhythm S1 S2 Gastrointestinal (Abdomen): Dressing over surgical site. Colostomy in situ Musculoskeletal: No pedal edema Neurologic: Intubated and sedated Genitourinary: Vega in situ Results & Data Results & Data Vital Signs (Past 12 Hours) Vital Signs Temp Pulse Resp BP Pulse Ox O2 Del Method FiO2 09/10/22 10:00 36.8 C 70 16 99 09/10/22 10:00 120/69 09/10/22 09:00 36.9 C 67 14 100 09/10/22 09:00 113/62 09/10/22 08:00 36.9 C 72 17 91 09/10/22 08:00 118/58 L 09/10/22 07:00 36.9 C 60 12 100 09/10/22 07:00 114/60 09/10/22 08:00 Mechanical Vent 09/10/22 08:00 58 L 09/10/22 08:00 25 09/10/22 07:02 63 14 100 25 09/10/22 06:00 37.0 C 66 12 100 09/10/22 06:00 116/66 09/10/22 05:30 37.1 C 68 12 99 09/10/22 05:00 37.1 C 62 12 100 09/10/22 05:00 125/69 09/10/22 04:30 37.2 C 71 12 98 09/10/22 04:00 37.2 C 77 16 98 09/10/22 04:00 114/74 09/10/22 04:00 25 09/10/22 03:50 60 15 99 25 09/10/22 03:30 37.3 C 74 28 H 98 09/10/22 03:00 37.2 C 66 12 99 09/10/22 03:00 132/69 09/10/22 02:30 37.2 C 72 12 98 09/10/22 02:00 37.0 C 64 15 98 09/10/22 02:00 113/68 09/10/22 01:30 36.8 C 80 21 98 09/10/22 01:00 36.5 C 79 14 98 09/10/22 01:00 123/72 09/10/22 00:30 36.1 C L 78 14 99 09/10/22 00:00 35.6 C L 70 14 99 09/10/22 00:00 112/70 09/09/22 23:30 35.2 C L 58 L 14 100 Laboratory Results Abnormal lab results 09/09/22 09/09/22 09/09/22 Range/Units 13:30 15:27 20:54 RBC (4.70-6.10) M/uL Hgb (14.0-18.0) g/dl POC Hgb 12.6 L (14.0-18.0) g/dl Hct (42.0-52.0) % POC Hct 37 L (42-52) % RDW Std Deviation (36.4-46.3) fL RDW Coeff of Bayron (11.5-14.5) % Neut # (Auto) (1.40-6.50) K/uL Lymph # (Auto) (1.2-3.4) K/uL Lee # (Auto) (0.11-0.59) K/uL POC pH (7.35-7.45) POC pCO2 32 L (35-46) mmHg POC pO2 130 H (80-95) mmHg POC Total CO2 23 L (24-31) mmol/L POC Base Excess (-9-1.8) marlon/L ABG pH (Temp Correct) (7.35-7.45) ABG pCO2 (Temp Corrct 31 L (35-46) mmHg POC ABG O2 Sat 99.0 H (90-95) % POC Sodium 132 L (135-144) mmol/L Sodium 130 L (136-145) mmol/L POC Potassium 3.2 L (3.3-5.0) mmol/L Potassium (3.5-5.1) mmol/L Chloride 94 L (98-107) mmol/L Anion Gap (3-11) BUN 38 H (6-23) mg/dl Creatinine 5.30 H* (0.6-1.4) mg/dl BUN/Creatinine Ratio 7.2 L (10-20) Glucose 106 H (70-99(Fasting)) mg/dl POC Glucose (70-99) mg/dl Calcium 8.4 L (8.6-10.3) mg/dl Ionized Calcium (1.12-1.32) mmol/L Phosphorus (2.5-4.9) mg/dl Peritoneal WBC (Auto) 2515 H (0-300) /ul Random Vancomycin (10-20) mcg/ml 09/09/22 09/09/22 09/10/22 Range/Units 21:00 21:00 00:16 RBC 3.27 L (4.70-6.10) M/uL Hgb 10.9 L (14.0-18.0) g/dl POC Hgb (14.0-18.0) g/dl Hct 31.8 L (42.0-52.0) % POC Hct (42-52) % RDW Std Deviation 56.9 H (36.4-46.3) fL RDW Coeff of Bayron 16.2 H (11.5-14.5) % Neut # (Auto) 8.44 H (1.40-6.50) K/uL Lymph # (Auto) 0.62 L (1.2-3.4) K/uL Lee # (Auto) (0.11-0.59) K/uL POC pH (7.35-7.45) POC pCO2 (35-46) mmHg POC pO2 (80-95) mmHg POC Total CO2 (24-31) mmol/L POC Base Excess (-9-1.8) marlon/L ABG pH (Temp Correct) (7.35-7.45) ABG pCO2 (Temp Corrct (35-46) mmHg POC ABG O2 Sat (90-95) % POC Sodium (135-144) mmol/L Sodium 132 L (136-145) mmol/L POC Potassium (3.3-5.0) mmol/L Potassium 3.4 L (3.5-5.1) mmol/L Chloride (98-107) mmol/L Anion Gap 13 H (3-11) BUN 36 H (6-23) mg/dl Creatinine 4.93 H* D (0.6-1.4) mg/dl BUN/Creatinine Ratio 7.3 L (10-20) Glucose 135 H (70-99(Fasting)) mg/dl POC Glucose 115 H (70-99) mg/dl Calcium 7.8 L (8.6-10.3) mg/dl Ionized Calcium (1.12-1.32) mmol/L Phosphorus (2.5-4.9) mg/dl Peritoneal WBC (Auto) (0-300) /ul Random Vancomycin (10-20) mcg/ml 09/10/22 09/10/22 09/10/22 Range/Units 03:49 04:09 04:09 RBC 3.03 L (4.70-6.10) M/uL Hgb 10.0 L (14.0-18.0) g/dl POC Hgb 9.9 L (14.0-18.0) g/dl Hct 29.2 L (42.0-52.0) % POC Hct 29 L (42-52) % RDW Std Deviation 57.0 H (36.4-46.3) fL RDW Coeff of Bayron 16.1 H (11.5-14.5) % Neut # (Auto) 8.33 H (1.40-6.50) K/uL Lymph # (Auto) (1.2-3.4) K/uL Lee # (Auto) 0.62 H (0.11-0.59) K/uL POC pH 7.52 H* (7.35-7.45) POC pCO2 30 L (35-46) mmHg POC pO2 97 H (80-95) mmHg POC Total CO2 (24-31) mmol/L POC Base Excess 2.0 H (-9-1.8) marlon/L ABG pH (Temp Correct) 7.516 H* (7.35-7.45) ABG pCO2 (Temp Corrct 30 L (35-46) mmHg POC ABG O2 Sat 98.0 H (90-95) % POC Sodium 131 L (135-144) mmol/L Sodium (136-145) mmol/L POC Potassium (3.3-5.0) mmol/L Potassium (3.5-5.1) mmol/L Chloride (98-107) mmol/L Anion Gap (3-11) BUN (6-23) mg/dl Creatinine (0.6-1.4) mg/dl BUN/Creatinine Ratio (10-20) Glucose (70-99(Fasting)) mg/dl POC Glucose (70-99) mg/dl Calcium (8.6-10.3) mg/dl Ionized Calcium (1.12-1.32) mmol/L Phosphorus (2.5-4.9) mg/dl Peritoneal WBC (Auto) (0-300) /ul Random Vancomycin 23.1 H (10-20) mcg/ml 09/10/22 09/10/22 Range/Units 04:09 04:09 RBC (4.70-6.10) M/uL Hgb (14.0-18.0) g/dl POC Hgb (14.0-18.0) g/dl Hct (42.0-52.0) % POC Hct (42-52) % RDW Std Deviation (36.4-46.3) fL RDW Coeff of Bayron (11.5-14.5) % Neut # (Auto) (1.40-6.50) K/uL Lymph # (Auto) (1.2-3.4) K/uL Lee # (Auto) (0.11-0.59) K/uL POC pH (7.35-7.45) POC pCO2 (35-46) mmHg POC pO2 (80-95) mmHg POC Total CO2 (24-31) mmol/L POC Base Excess (-9-1.8) marlon/L ABG pH (Temp Correct) (7.35-7.45) ABG pCO2 (Temp Corrct (35-46) mmHg POC ABG O2 Sat (90-95) % POC Sodium (135-144) mmol/L Sodium 133 L (136-145) mmol/L POC Potassium (3.3-5.0) mmol/L Potassium (3.5-5.1) mmol/L Chloride (98-107) mmol/L Anion Gap (3-11) BUN 38 H (6-23) mg/dl Creatinine 5.26 H* D (0.6-1.4) mg/dl BUN/Creatinine Ratio 7.2 L (10-20) Glucose (70-99(Fasting)) mg/dl POC Glucose (70-99) mg/dl Calcium 7.6 L (8.6-10.3) mg/dl Ionized Calcium 1.05 L (1.12-1.32) mmol/L Phosphorus 5.0 H D (2.5-4.9) mg/dl Peritoneal WBC (Auto) (0-300) /ul Random Vancomycin (10-20) mcg/ml
--- NOTE | 2022-09-10 12:07 | Procedure Note ---
Procedure Note Date of Service September 10, 2022 Note Procedure: Inserting ultrasound-guided dialysis catheter Cardiology Manager: Dr. Alba Saenz Indication: End-stage renal disease Consent: Informed consent by patient's and verified with timeout prior to procedure. Anesthesia: 1% lidocaine without epinephrine local. Procedure: Consent was verified and timeout performed. Appropriate imaging studies were reviewed prior to the procedure. Under aseptic and sterile condition, right IJ vein was accessed under direct ultrasound guidance. Guidewire was confirmed to be within the lumen of vein with the help of ultrasound. Catheter was introduced via Seldinger technique. Guide a wire was removed. Good non-pulsatile blood flow was appreciated from all the ports. The catheter was placed at 13 cm and sutured in place. BioPatch was applied to the catheter and a sterile Tegaderm dressing was applied over the catheter with careful attention to sterility. Lung sliding was appreciated post procedure with the help ultrasound. Chest x-ray to follow Patient tolerated the procedure well. Blood loss: Less than 1 cc Complications: None Coding CPT Codes Tubes, Drains, and Vasc Access - Tubes, Drains, and Vasc Access: [id number] Insertion of cannula for hemodialysis ([id number]) Tubes, Drains, and Vasc Access - Tubes, Drains, and Vasc Access: [id number] Ultrasound Guidance For Vascular ([id number]) [facility] [place] Procedure Codes (Charges) Tubes, Drains, and Vasc Access Procedure 1: Tubes, Drains, and Vasc Access: [id number] Insertion of cannula for hemodialysis Procedure 2: Tubes, Drains, and Vasc Access: [id number] Ultrasound Guidance For Vascular
[2022-09-10] MEDS: HEPARIN SOD 5,000 UNIT/0.5 ML VIAL SQ SCH ×2 (12:32→20:09)
--- NOTE | 2022-09-10 12:45 | XRay Report ---
XR chest 1V portable HISTORY: 77 years-old Male Confirm line placement status post placement of a right IJ central venous catheter COMPARISON: 09/09/2022 TECHNIQUE: AP view of the chest FINDINGS: Cardiac silhouette is enlarged. Enteric tube distal tip projects over the gastric fundus. Endotrachea l tube overlies the midline, 4.5 cm superior to the tawanna. Right IJ central venous catheter distal t ip projects over the mid SVC. No pneumothorax. Trace pleural effusions with mild bibasilar opacities. Pneumoperitoneum redemonstrated. Bones appear grossly intact. IMPRESSION: 1. Lines and tubes as above. 2. Mild bibasilar opacities suggest atelectasis. 3. Pneumoperitoneum again noted. ACT 112: Negative or not required by law. The above report was generated using voice recognition software. It may contain grammatical, syntax o r spelling errors. Electronically signed by: Velasquez Reveles M.D. 09/10/2022 12:44 PM
--- NOTE | 2022-09-10 15:34 | Communication Note ---
Date of Service: September 10, 2022 GI brief note pt underwent ex lap with sigmoid colostomy for tx of his bowel obstruction last night. currently has some abdominal pain, receiving dialysis. recs: it will be important for him to be on a regular bowel regimen as an outpatient, can consider miralax 17 g BID upon discharge follow up with [facility] gi as outpatient Gallito Ochoa MD Gastroenterology
[2022-09-10] MEDS ORDERED: MoRPHine SULFATE 2 MG/ML CARP ONE (17:45)
[2022-09-10] MEDS: MoRPHine SULFATE 2 MG/ML CARP IV PRN (20:40)
[2022-09-11 04:07] LABS: HBSAG NON-REACTIVE (NON-REACTIVE); Hepatitis B Surface Ab, Quant <5 mIU/mL (> OR = 10)
[2022-09-11] MEDS: LATANOPROST 0.005% OP SOLN 2.5 ML BTL OPB SCH ×3 (04:59→20:32)
[2022-09-11] MEDS: MoRPHine SULFATE 2 MG/ML CARP IV PRN ×6 (05:00→20:59)
[2022-09-11 05:30] LABS: Basophils # (auto) 0.04 K/uL (0-0.2); Basophils % (auto) 0.5 %; Eosinophils # (auto) 0.31 K/uL (0-0.50); Eosinophils % (auto) 4.2 %; Hematocrit (blood only) 26.1 % (42.0-52.0); Hemoglobin 8.9 g/dl (14.0-18.0); Immature Granulocytes # (auto) 0.06 K/uL (0.01-0.20); Immature Granulocytes % (auto) 0.8 %; Lymphocytes # (auto) 0.89 K/uL (1.2-3.4); Lymphocytes % (auto) 12.2 %; Mean Corpuscular Hemoglobin 33.5 pg (25.0-34.0); Mean Corpuscular Hgb Conc 34.1 g/dL (32.0-36.0); Mean Corpuscular Volume 98.1 fL (80.0-100.0); Mean Platelet Volume 9.8 fL (9.4-12.4); Monocytes # (auto) 0.55 K/uL (0.11-0.59); Monocytes % (auto) 7.5 %; Neutrophils # (auto) 5.45 K/uL (1.40-6.50); Neutrophils % (auto) 74.8 %; Platelet Count 347 K/uL (130-400); RDW Coefficient of Variation 16.3 % (11.5-14.5); RDW Standard Deviation 58.3 fL (36.4-46.3); Red Blood Count 2.66 M/uL (4.70-6.10)
[2022-09-11] MEDS ORDERED: MINERAL OIL 30 ML UDC PO ONE (06:30)
--- NOTE | 2022-09-11 06:32 | Surgery Progress Note ---
Date of Service September 11, 2022 Assessment & Plan (1) Status post exploratory laparotomy: Plan: NG tube has had out approximately 700 total, 100 cc overnight-we will try clamping and also may give meds per NG tube Hopefully can DC NG tube within the next 24 to 48 hours and begin clear liquids Continue with IV antibiotics, check his cultures Wounds appear to be stable Requiring some pressor support at the present time Patient does awaken and is responsive Appreciate ICU and medical management Admission and Anticipated Discharge Date Admission Date: September 05, 2022 Results & Data Vital Signs (Past 12 Hours) Vital Signs Temp Pulse Resp BP Pulse Ox O2 Del Method 09/11/22 01:05 93 H 09/11/22 00:00 37.9 C H 91 H 22 139/65 99 09/10/22 23:00 37.9 C H 90 18 138/61 94 09/10/22 21:00 Room Air 09/10/22 22:00 37.9 C H 90 18 140/65 97 09/10/22 21:00 37.9 C H 84 21 124/66 95 09/10/22 20:20 124/53 L 09/10/22 20:20 37.9 C H 75 25 H 100 09/10/22 20:00 37.9 C H 81 21 100 Room Air 09/10/22 19:01 37.8 C H 78 14 98 09/10/22 19:00 37.8 C H 74 20 100 PG Care Time/CCT Total # of Minutes Spent Total Time Spent with Patient: Total time spent is greater than 50% in coordination of care (as documented) at patient's floor/unit and/or counseling patient: Coding Level of Care Code None Diagnoses Status post exploratory laparotomy Z98.890
[2022-09-11] MEDS: BUDESONIDE 0.25 MG/2 ML VIAL (PULMICORT) NEB SCH ×2 (06:56→19:18)
[2022-09-11] MEDS: FORMOTEROL 20 MCG/2 ML VIAL INH SCH ×2 (06:56→19:18)
--- NOTE | 2022-09-11 07:10 | Critical Care Progress Note ---
Date of Service September 11, 2022 Assessment & Plan (1) Bowel obstruction: (2) Hypokalemia: (3) Sepsis: (4) Stercoral colitis: (5) Type 2 diabetes, diet controlled: (6) ESRD (end stage renal disease) on dialysis: (7) Glaucoma: Plan Reason Critically Ill: 77-year-old male past medical history of end-stage renal disease on peritoneal dialysis, dyslipidemia, MCA CVA in July 2022, hypertension, dyslipidemia presented to the hospital with sepsis secondary to abdominal peritonitis. Developed high-grade SBO. 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 Plan: In/out: Positive 524, urine output 815 Patient is hemodynamically stable to be downgraded to medical floor. Case was discussed with Dr. Luisito Priest plan for dialysis as per nephrology. The right IJ catheter is positional. She will need to keep that in mind when lilian luis is to be dialyzed likely tomorrow Please note the above document was generated using voice recognition software. It may contain grammatical, syntax or spelling errors.Any formal questions or concerns about the content, text or information contained within the body of this dictation should be directly addressed to the provider for clarification. Admission and Anticipated Discharge Date Admission Date: September 05, 2022 Subjective Patient seen and examined at bedside. No acute distress, notable since overnight Denies any chest pain, no shortness of breath Does complain of some abdominal discomfort. Map was in the high 70s at the time of examination He has been off vasopressor support since being extubated yesterday NGT still to suction Review of Systems Review of Systems: All systems reviewed & are unremarkable except as noted in Subjective Physical Exam Physical Exam: Constitutional: No acute distress HEENT: EOMI, PERRLA Respiratory system: Decreased air entry bilaterally, no rhonchi, mild crackles bilateral lower lobes, no wheeze CVS: S1-S2 positive, no murmurs or gallops Abdomen: Soft, mild tenderness, no rebound, left-sided ileostomy, midline incision dressing in place Extremities: +2 pulses bilaterally radialis/ dorsalis pedis, no cyanosis, no edema Neuro: Awake alert oriented x3 Psych: Normal mood and effect G/U: Vega Skin: no rashes, warm and dry Lymphatic: no cervical or axillary lymphadenopathy Results & Data Results & Data Vital Signs (Past 12 Hours) Vital Signs Temp Pulse Pulse Resp BP Pulse Ox O2 Del Method 09/11/22 06:57 75 18 100 Room Air 09/11/22 01:05 93 H 09/11/22 00:00 37.9 C H 91 H 22 139/65 99 09/10/22 23:00 37.9 C H 90 18 138/61 94 09/10/22 21:00 Room Air 09/10/22 22:00 37.9 C H 90 18 140/65 97 09/10/22 21:00 37.9 C H 84 21 124/66 95 09/10/22 20:20 124/53 L 09/10/22 20:20 37.9 C H 75 25 H 100 09/10/22 20:00 37.9 C H 81 21 100 Room Air Laboratory Results 09/11/22 04:10 Coding Level of Care Code 27445 SUB INP/OBS CARE 3/50MIN Diagnoses Bowel obstruction K56.609 Hypokalemia E87.6 Sepsis A41.9 Stercoral colitis K52.89 Type 2 diabetes, diet controlled E11.9 ESRD (end stage renal disease) on dialysis N18.6; Z99.2 Glaucoma H40.9
[2022-09-11 07:13] LABS: Anion Gap 10 (3-11); BUN Creatinine Ratio 6.1 (10-20); Blood Urea Nitrogen 27 mg/dl (6-23); Calcium 7.8 mg/dl (8.6-10.3); Carbon Dioxide 23 mmol/L (21-32); Chloride 100 mmol/L (98-107); Creatinine Clr Calc Pharmacy 12.9 ml/min; Est GFR (Non-African American) 12.1 ml/min; Glucose 73 mg/dl (70-99(Fasting)); Magnesium 2.2 mg/dl (1.7-2.4); Phosphorus 5.2 mg/dl (2.5-4.9); Sodium 133 mmol/L (136-145)
[2022-09-11] MEDS: ICU Protocol for HYPERglycemia SCH ×2 (08:03→11:14)
--- NOTE | 2022-09-11 08:23 | XRay Report ---
XR chest 1V portable HISTORY: 77 years-old Male f/u acute shortness of breath COMPARISON: 09/10/2022 TECHNIQUE: AP view of the chest FINDINGS: Right IJ dual-lumen hemodialysis catheter distal tip is noted in the expected location of the mid SVC . Distal tip of enteric tube projects over the gastric fundus. Status post extubation. Cardiac silhou ette is mildly enlarged. Atherosclerosis of the aorta. Mild subsegmental bibasilar atelectasis. Pneum operitoneum again noted. Bones appear grossly intact. IMPRESSION: 1. Status post extubation with stable positioning of the enteric tube and right IJ catheter. 2. Mild left basilar prominent atelectasis. 3. Pneumoperitoneum redemonstrated. ACT 112: Negative or not required by law. The above report was generated using voice recognition software. It may contain grammatical, syntax o r spelling errors. Electronically signed by: Velasquez Reveles M.D. 09/11/2022 8:21 AM
[2022-09-11] MEDS: HEPARIN SOD 5,000 UNIT/0.5 ML VIAL SQ SCH ×2 (08:49→20:33)
[2022-09-11] MEDS: SENNOSIDES 8.8 MG/5 ML UDC PO SCH ×2 (08:49→20:33)
[2022-09-11] MEDS ORDERED: VANCOMYCIN HCL 1,000 MG in SODIUM CHLORIDE 0.9% 250 ML IV ONE (09:15)
[2022-09-11] MEDS: PANTOprazole 40 MG in SYRINGE 0 ML IV SCH (10:14)
--- NOTE | 2022-09-11 10:56 | Nephrology Progress Note ---
Date of Service September 11, 2022 Assessment & Plan (1) ESRD (end stage renal disease) on dialysis: Plan: ESRD on PD -PD catheter was taken out on 09/09. Had temporay HD catheter put in on 09/10, -Dialysis catheter was very position,could not get a good dialysis - Will dialyse him tmrw for 3 hr with @ 1-1.5 lit UF. 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 (2) Abdominal pain: Plan: - Patient is now ex lap with colostomy -Renally dose antibiotics. (3) Stercoral colitis: Plan: ok with Miralax, if needed. Admission and Anticipated Discharge Date Admission Date: September 05, 2022 Subjective Patient seen and examined at bedside. No acute distress, notable since overnight Does complain of some abdominal discomfort. Map was in the high 70s at the time of examination He has been off vasopressor support since being extubated yesterday Review of Systems Review of Systems: All systems reviewed & are unremarkable except as noted in HPI & below Physical Exam Physical Exam: General: Ill-appearing but comfortable. CV:RRR, S1 S2, no m/r/g Pulm:CTA b/l Abd/GI: Soft, colostomy bag in-situ Ext:no pretibial edema Results & Data Vital Signs (Past 12 Hours) Vital Signs Temp Pulse Pulse Resp BP Pulse Ox O2 Del Method 09/11/22 10:00 37.1 C 74 14 138/77 100 Room Air 09/11/22 09:00 37.2 C 77 17 129/77 100 Room Air 09/11/22 08:00 37.3 C 77 14 121/69 96 Room Air 09/11/22 07:00 37.5 C 76 15 100 Room Air 09/11/22 06:57 75 18 100 Room Air 09/11/22 01:05 93 H 09/11/22 00:00 37.9 C H 91 H 22 139/65 99 09/10/22 23:00 37.9 C H 90 18 138/61 94 Laboratory Results 09/11/22 04:10 09/11/22 07:36
--- NOTE | 2022-09-11 11:34 | Hospitalist Progress Note ---
Date of Service September 11, 2022 Assessment & Plan (1) Bowel obstruction: (2) Status post exploratory laparotomy: (3) Colostomy in place: (4) Stercoral colitis: (5) Constipation due to opioid therapy: Plan: Presented on 09/05/22 with abd pain, constipation and had low BP BP improved with 250 ml bolus x 2. CT A/P on 09/05/22 showed Moderate to large amount of liquid stool seen throughout the colon including a 9 x 8 cm rectal stool ball, Mild rectal wall thickening for the degree of distention is again noted. There is also mild perirectal edema. This could represent a stercoral proctitis. A few scattered foci of pneumoperitoneum seen within the upper abdomen which is likely due to the patient's peritoneal dialysis catheter. This has improved in the interval. No evidence for a small bowel obstruction. Patient stated he always had low blood pressure due to his dialysis. Patient was started on empirical antibiotics on admission Infectious workup on admission was negative Antibiotics was initially stopped on 09/07/22 after 48h of empirical therapy Chronic opioid induced constipation Patient was started on aggressive bowel regimen. Despite watery diarrhea, he continued to have pain and serial imaging showed persistent stool ball/rectal obstruction Repeat CT A/P on 09/08/22 noted no significant change in large stool ball within rectum, mild rectal wall thickening slightly increased, stool throughout colon, fluid filled mildly dilated small bowel without transition suggestive of ileus Repeat CT A/P 09/09/22 noted no significant change in pneumoperitoneum, increase in small bowel dilatation suggesting ileus or partial SBO, large stool in rectum Initial peritoneal fluid analysis on admission was negative for infection Repeat peritoneal fluid analysis on 09/09/22 showed increased WBC 2500 Likely due to bacterial translocation in setting of bowel obstruction Patient developed Small bowel obstruction as well on 09/09/22 Had exploratory laparotomy for bowel obstruction, sigmoid colostomy creation and removal of PD catheter by Dr Jorge on 09/09/22 POD#2 Extubated on 09/10/22 Continue IV vanc and ceftazidime for now for sepsis due to abdominal peritonitis NGT currently clamped. Monitor and possible removal in 24-48h (6) ESRD (end stage renal disease) on dialysis: Plan: Patient was on peritoneal dialysis 4x per day prior to admission Discussed with Volunteer Services Coordinator Dr Cordova Got HD yesterday via temporary HD catheter Will need a tunneled or permanent catheter (7) Type 2 diabetes, diet controlled: Plan: Previously on metformin, now diet controlled Blood glucose is well control Monitor (8) Stroke: Plan: Completed 21 days of DAPT Will resume ASA daily once enteral feeding is established (9) Anemia of renal disease: Plan: Hb 8.9 today from 10 yesterday Acute on chronic anemia may be related to surgery/HD Monitor (10) HLD (hyperlipidemia): (11) HTN (hypertension): Plan: Metoprolol and torsemide on hold for now (12) Gout: Plan: H/o Gout. Was on allopurinol (13) Lumbar stenosis with neurogenic claudication: (14) Hypokalemia: Plan: Resolved (15) Hyponatremia: Plan: Nephro on board Monitor Plan DVT prophylaxis- no pharm agent for now in view of recent surgery. Monitor Downgrade to PCU I spent a total of 50 minutes coordinating, documenting and providing care for this patient excluding time spent in performance of separately billed services Admission and Anticipated Discharge Date Admission Date: September 05, 2022 Subjective Patient seen and examined Was extubated yesterday Currently patient reports feeling better Reports surgical site pain is well controlled Reports mild cough. Still has NGT in situ No shortness of breath, chest pain, nausea, vomiting Physical Exam Constitutional: + well hydrated; no acute distress Eyes: PERRL, conjunctivae normal, anicteric sclerae ENMT: external ear and nose normal, oropharynx normal NGT in situ Respiratory: normal respiratory effort, lungs clear to auscultation Cardiovascular: Rate/Rhythm: regular rate and regular rhythm S1 S2 Gastrointestinal (Abdomen): Clean surgical site dressing, colostomy in situ, reduced bowel sounds Musculoskeletal: No pedal edema Neurologic: PERRL, EOMI, accommodation nl, no face palsy, no dysarthria Psychiatric: A+Ox3, euthymic affect Genitourinary: Vega in situ Results & Data Results & Data Vital Signs (Past 12 Hours) Vital Signs Temp Pulse Pulse Resp BP Pulse Ox O2 Del Method 09/11/22 11:00 37.0 C 83 18 116/62 97 Room Air 09/11/22 10:00 37.1 C 74 14 138/77 100 Room Air 09/11/22 09:00 37.2 C 77 17 129/77 100 Room Air 09/11/22 08:00 37.3 C 77 14 121/69 96 Room Air 09/11/22 07:00 37.5 C 76 15 100 Room Air 09/11/22 06:57 75 18 100 Room Air 09/11/22 01:05 93 H 09/11/22 00:00 37.9 C H 91 H 22 139/65 99 Laboratory Results Abnormal lab results 09/10/22 09/10/22 09/11/22 Range/Units 10:38 12:08 04:10 RBC 2.66 L (4.70-6.10) M/uL Hgb 8.9 L (14.0-18.0) g/dl Hct 26.1 L (42.0-52.0) % RDW Std Deviation 58.3 H (36.4-46.3) fL RDW Coeff of Bayron 16.3 H (11.5-14.5) % Lymph # (Auto) 0.89 L (1.2-3.4) K/uL Sodium (136-145) mmol/L BUN (6-23) mg/dl Creatinine (0.6-1.4) mg/dl BUN/Creatinine Ratio (10-20) POC Glucose (other) 105 H (70-99) mg/dl Calcium (8.6-10.3) mg/dl Ionized Calcium (1.12-1.32) mmol/L Phosphorus (2.5-4.9) mg/dl Hep Bs Antibody, Quant <5 L (> OR = 10) mIU/mL 09/11/22 09/11/22 Range/Units 04:10 04:10 RBC (4.70-6.10) M/uL Hgb (14.0-18.0) g/dl Hct (42.0-52.0) % RDW Std Deviation (36.4-46.3) fL RDW Coeff of Bayron (11.5-14.5) % Lymph # (Auto) (1.2-3.4) K/uL Sodium 133 L (136-145) mmol/L BUN 27 H (6-23) mg/dl Creatinine 4.41 H D (0.6-1.4) mg/dl BUN/Creatinine Ratio 6.1 L (10-20) POC Glucose (other) (70-99) mg/dl Calcium 7.8 L (8.6-10.3) mg/dl Ionized Calcium 1.06 L (1.12-1.32) mmol/L Phosphorus 5.2 H (2.5-4.9) mg/dl Hep Bs Antibody, Quant (> OR = 10) mIU/mL
[2022-09-11] MEDS ORDERED: GLUCAGON FOR INJ 1 MG VIAL SQ PRN (18:18)
[2022-09-11] MEDS ORDERED: GLUCOSE 40% GEL 15 GM TUBE PO PRN (18:18)
[2022-09-11] MEDS ORDERED: CARBOHYDRATES FOR HYPOGLYCEMIA PO PRN (18:18)
[2022-09-11] MEDS ORDERED: GLUCOSE 10 TAB/TUBE PO PRN (18:18)
[2022-09-11] MEDS ORDERED: DEXTROSE 50% 50 ML SYRINGE IV PRN (18:18)
[2022-09-11] MEDS: D5W AND NSS 1,000 ML IV SCH (18:26)
[2022-09-12] MEDS: MoRPHine SULFATE 2 MG/ML CARP IV PRN ×5 (00:19→18:48)
[2022-09-12 06:18] LABS: Basophils # (auto) 0.02 K/uL (0-0.2); Basophils % (auto) 0.3 %; Eosinophils # (auto) 0.33 K/uL (0-0.50); Eosinophils % (auto) 5.3 %; Hematocrit (blood only) 23.4 % (42.0-52.0); Hemoglobin 7.7 g/dl (14.0-18.0); Immature Granulocytes # (auto) 0.05 K/uL (0.01-0.20); Immature Granulocytes % (auto) 0.8 %; Lymphocytes # (auto) 1.03 K/uL (1.2-3.4); Lymphocytes % (auto) 16.5 %; Mean Corpuscular Hemoglobin 32.6 pg (25.0-34.0); Mean Corpuscular Hgb Conc 32.9 g/dL (32.0-36.0); Mean Corpuscular Volume 99.2 fL (80.0-100.0); Mean Platelet Volume 9.1 fL (9.4-12.4); Monocytes # (auto) 0.55 K/uL (0.11-0.59); Monocytes % (auto) 8.8 %; Neutrophils # (auto) 4.25 K/uL (1.40-6.50); Neutrophils % (auto) 68.3 %; Platelet Count 321 K/uL (130-400); RDW Coefficient of Variation 15.4 % (11.5-14.5); Red Blood Count 2.36 M/uL (4.70-6.10); White Blood Count 6.23 K/ul (4.8-10.8)
--- NOTE | 2022-09-12 06:32 | Surgery Progress Note ---
Date of Service September 12, 2022 Assessment & Plan (1) Status post exploratory laparotomy: Plan: Patient with history of severe abdominal pain and bowel obstruction This was likely a combination of torsion of the small bowel, possibly secondary to peritoneal dialysis catheter and also feculent impaction in the rectum He has a loop sigmoid colostomy His NG tube has been removed, we are going to start him on clear liquids I was able to disimpact a significant amount of very thick stool from his rectum-there is still some remaining We will benefit from enemas although may hold off today Admission and Anticipated Discharge Date Admission Date: September 05, 2022 Results & Data Vital Signs (Past 12 Hours) Vital Signs Temp Pulse Pulse Pulse Resp BP BP 09/12/22 03:58 36.6 C 77 16 118/68 09/12/22 00:08 36.8 C 80 16 114/65 09/11/22 22:34 80 09/11/22 19:58 37.0 C 82 16 119/68 09/11/22 19:23 86 16 Pulse Ox O2 Del Method 09/12/22 03:58 95 Room Air 09/12/22 00:08 95 Room Air 09/11/22 22:34 09/11/22 19:58 95 Room Air 09/11/22 19:23 95 Room Air PG Care Time/CCT Total # of Minutes Spent Total Time Spent with Patient: Total time spent is greater than 50% in coordination of care (as documented) at patient's floor/unit and/or counseling patient: Coding Level of Care Code 23716 Post Operative Follow-Up Diagnoses Status post exploratory laparotomy Z98.890
[2022-09-12 06:41] LABS: Calcium 7.7 mg/dl (8.6-10.3); Creatinine Clr Calc Pharmacy 10.7 ml/min; Est GFR (African American) 11.2 ml/min; Est GFR (Non-African American) 9.6 ml/min; Magnesium 2.2 mg/dl (1.7-2.4); Phosphorus 5.5 mg/dl (2.5-4.9); Potassium 3.6 mmol/L (3.5-5.1)
[2022-09-12 06:46] LABS: Polychromasia 1+
[2022-09-12] MEDS ORDERED: SODIUM CHLORIDE 0.9% 1000ML 1,000 ML IV PRN (07:00)
[2022-09-12] MEDS: FORMOTEROL 20 MCG/2 ML VIAL INH SCH ×2 (07:18→19:15)
[2022-09-12] MEDS: BUDESONIDE 0.25 MG/2 ML VIAL (PULMICORT) NEB SCH ×2 (07:18→19:15)
[2022-09-12] MEDS: HEPARIN SOD 5,000 UNIT/0.5 ML VIAL SQ SCH ×2 (08:41→20:31)
[2022-09-12] MEDS: SENNOSIDES 8.8 MG/5 ML UDC PO SCH ×2 (08:41→20:33)
--- NOTE | 2022-09-12 10:30 | Gastroenterology Progress Note ---
Date of Service September 12, 2022 Assessment & Plan (1) Bowel obstruction: (2) Status post exploratory laparotomy: Plan Pt is a 77 yo male w bowel obstruction s/p ex lap and sigmoid colostomy creation on 09/09/2022. Good ostomy output, NGT DC'd, tolerating CL diet. - Recommend daily bowel regimen, prefer Miralax 17g daily to BID over Senna if cleared by renal (dialysis pt) - Diet advancement per surgery - No new GI plans, will sign off; pls recall prn Admission and Anticipated Discharge Date Admission Date: September 05, 2022 Supervising Physician Co-Signing Physician Notes I personally saw and evaluated the patient on 09/12/2022 with JACOBO Knight and agree with her findings and plan of care. Patient seen on dialysis. No complaints. New colostomy bag on exam. Abdomen soft. NG tube has been removed and he is on a clear liquid diet. Would recommend a daily bowel regimen with miralax 17g and can increase to BID if needed. Advance diet per surgery recommendations. GI will sign off but please call back with questions. Ava Parekh, DO Gastroenterology and Hepatology Subjective Patient's NG tube was removed this morning, he has mild nausea but no vomiting. Able to tolerate clear liquid diet. Mild abdominal pain. Ostomy is putting out liquid fluid. Review of Systems Review of Systems: All systems reviewed & are unremarkable except as noted in HPI & below Physical Exam Constitutional: WD/WN, vitals as above well groomed, cooperative and comfortable Eyes: PERRL, conjunctivae normal, anicteric sclerae ENMT: external ear and nose normal, oropharynx normal Respiratory: normal respiratory effort, lungs clear to auscultation Cardiovascular: RRR, no murmur, no edema Gastrointestinal (Abdomen): Mild ttp generalized, LLQ ostomy w clear liquid output. BS hypoactive Skin: no rashes, warm and dry no jaundice Psychiatric: A+Ox3, euthymic affect Lymphatic: no lymphedema Results & Data Vital Signs (Past 12 Hours) Vital Signs Temp Pulse Pulse Pulse Pulse Resp BP 09/12/22 10:00 78 98/56 L 09/12/22 09:45 36.7 C 68 108/64 09/12/22 09:40 36.7 C 78 09/12/22 07:56 75 09/12/22 07:51 36.5 C 72 18 09/12/22 07:19 66 16 09/12/22 03:58 36.6 C 77 16 09/12/22 00:08 36.8 C 80 16 09/11/22 22:34 80 BP BP Pulse Ox O2 Del Method 09/12/22 10:00 09/12/22 09:45 09/12/22 09:40 09/12/22 07:56 09/12/22 07:51 125/72 98 Room Air 09/12/22 07:19 96 Room Air 09/12/22 03:58 118/68 95 Room Air 09/12/22 00:08 114/65 95 Room Air 09/11/22 22:34
--- NOTE | 2022-09-12 10:54 | Dialysis Progress Note ---
Date of Service September 12, 2022 Assessment & Plan Admission and Anticipated Discharge Date Admission Date: September 05, 2022 Subjective Assessment & Plan (1) ESRD (end stage renal disease) on dialysis: Plan: ESRD on PD -PD catheter was taken out on 09/09. Had temporay HD catheter put in on 09/10, Dialysis catheter very positional. 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 Cannot be restarted on PD. Bp pretty good now. was on demadex at home. will use lasix 80 daily from tomorrow. (2) Abdominal pain: Plan: - Patient is now ex lap with colostomy -Renally dose antibiotics. (3) Stercoral colitis: Plan: ok with Miralax, if needed. Subjective Patient seen and examined during Dialysis. BP is fine. CVC is very positional and getting poor Qb. Making urine and has quezada. Also Liquid stool in the Colostomy. No acute distress, notable since overnight Does complain of some abdominal discomfort. On clear diet now. Able to have good conversation with me. Review of Systems Review of Systems: All systems reviewed & are unremarkable except as noted in HPI & below Physical Exam Physical Exam: General: Ill-appearing but comfortable. CV:RRR, S1 S2, no m/r/g Pulm:CTA b/l Abd/GI: Soft, colostomy bag in-situ Ext:no pretibial edema Results & Data Vital Signs (Past 12 Hours) Vital Signs Temp Pulse Pulse Pulse Pulse Resp BP 09/12/22 10:00 78 98/56 L 09/12/22 09:45 36.7 C 68 108/64 09/12/22 09:40 36.7 C 78 09/12/22 07:56 75 09/12/22 07:51 36.5 C 72 18 09/12/22 07:19 66 16 09/12/22 03:58 36.6 C 77 16 09/12/22 00:08 36.8 C 80 16 BP BP Pulse Ox O2 Del Method 09/12/22 10:00 09/12/22 09:45 09/12/22 09:40 09/12/22 07:56 09/12/22 07:51 125/72 98 Room Air 09/12/22 07:19 96 Room Air 09/12/22 03:58 118/68 95 Room Air 09/12/22 00:08 114/65 95 Room Air
--- NOTE | 2022-09-12 11:51 | Hospitalist Progress Note ---
Date of Service September 12, 2022 Assessment & Plan (1) Bowel obstruction: (2) Status post exploratory laparotomy: (3) Colostomy in place: (4) Stercoral colitis: (5) Constipation due to opioid therapy: Plan: Presented on 09/05/22 with abd pain, constipation and had low BP BP improved with 250 ml bolus x 2. CT A/P on 09/05/22 showed Moderate to large amount of liquid stool seen throughout the colon including a 9 x 8 cm rectal stool ball, Mild rectal wall thickening for the degree of distention is again noted. There is also mild perirectal edema. This could represent a stercoral proctitis. A few scattered foci of pneumoperitoneum seen within the upper abdomen which is likely due to the patient's peritoneal dialysis catheter. This has improved in the interval. No evidence for a small bowel obstruction. Patient stated he always had low blood pressure due to his dialysis. Patient was started on empirical antibiotics on admission Infectious workup on admission was negative Antibiotics was initially stopped on 09/07/22 after 48h of empirical therapy Chronic opioid induced constipation Patient was started on aggressive bowel regimen. Despite watery diarrhea, he continued to have pain and serial imaging showed persistent stool ball/rectal obstruction Repeat CT A/P on 09/08/22 noted no significant change in large stool ball within rectum, mild rectal wall thickening slightly increased, stool throughout colon, fluid filled mildly dilated small bowel without transition suggestive of ileus Repeat CT A/P 09/09/22 noted no significant change in pneumoperitoneum, increase in small bowel dilatation suggesting ileus or partial SBO, large stool in rectum Initial peritoneal fluid analysis on admission was negative for infection Repeat peritoneal fluid analysis on 09/09/22 showed increased WBC 2500 Likely due to bacterial translocation in setting of bowel obstruction Peritoneal fluid culture growing pseudomonas Patient developed Small bowel obstruction as well on 09/09/22 Had exploratory laparotomy for bowel obstruction, sigmoid colostomy creation and removal of PD catheter by Dr Jorge on 09/09/22 POD#3 Extubated on 09/10/22 Continue IV ceftazidime for sepsis due to abdominal peritonitis Stop Vancomycin Discussed with Pharm for renal dosing and adjusting dosing time to after HD Continue clears per surgery (6) ESRD (end stage renal disease) on dialysis: Plan: Patient was on peritoneal dialysis 4x per day prior to admission Discussed with Residential Substance Abuse Counselor Dr Quan today Per HD nurse, temporary catheter is quite possitional Will need a tunneled or permanent catheter. Vasc surg consulted to arrange for this (7) Type 2 diabetes, diet controlled: Plan: Previously on metformin, now diet controlled Hypoglycemic episodes due poor intake at this time with recent ex lap/colostomy Continue D5 saline for now Monitor blood glucose. Hypoglycemic protocol (8) Stroke: Plan: Completed 21 days of DAPT Will resume ASA daily once enteral feeding is established (9) Anemia of renal disease: Plan: Hb 7.7 today from 10 on 09/10/22 Acute on chronic anemia may be related to surgery/HD Monitor (10) HLD (hyperlipidemia): (11) HTN (hypertension): Plan: Metoprolol and torsemide on hold for now (12) Gout: Plan: H/o Gout. Was on allopurinol (13) Lumbar stenosis with neurogenic claudication: (14) Hypokalemia: Plan: Resolved (15) Hyponatremia: Plan: Nephro on board Monitor Plan DVT prophylaxis: Hep sq I spent a total of 50 minutes coordinating, documenting and providing care for this patient excluding time spent in performance of separately billed services Admission and Anticipated Discharge Date Admission Date: September 05, 2022 Subjective Patient seen and examined in HD unit Getting HD Reports some abdominal soreness but stated it is mild/well controlled Denied any nausea,vomiting NGT has been removed and stated he has been tolerating clears well Denied any chest pain, cough, SOB No fevers, chills Physical Exam Constitutional: + well hydrated; no acute distress Eyes: PERRL, conjunctivae normal, anicteric sclerae ENMT: external ear and nose normal, oropharynx normal Neck: Temporary HD catheter on right side of neck Respiratory: normal respiratory effort, lungs clear to auscultation Cardiovascular: Rate/Rhythm: regular rate and regular rhythm S1 S2 Gastrointestinal (Abdomen): Clean dressing over ex lap site, colostomy in situ Musculoskeletal: No pedal edema Neurologic: PERRL, EOMI, accommodation nl, no face palsy, no dysarthria Psychiatric: A+Ox3, euthymic affect Results & Data Results & Data Vital Signs (Past 12 Hours) Vital Signs Temp Pulse Pulse Pulse Pulse Resp BP 09/12/22 11:00 73 102/51 L 09/12/22 10:30 73 110/63 09/12/22 10:00 78 98/56 L 09/12/22 09:45 36.7 C 68 108/64 09/12/22 09:40 36.7 C 78 09/12/22 07:56 75 09/12/22 07:51 36.5 C 72 18 09/12/22 07:19 66 16 09/12/22 03:58 36.6 C 77 16 09/12/22 00:08 36.8 C 80 16 BP BP Pulse Ox O2 Del Method 09/12/22 11:00 09/12/22 10:30 09/12/22 10:00 09/12/22 09:45 09/12/22 09:40 09/12/22 07:56 09/12/22 07:51 125/72 98 Room Air 09/12/22 07:19 96 Room Air 09/12/22 03:58 118/68 95 Room Air 09/12/22 00:08 114/65 95 Room Air Laboratory Results Abnormal lab results 09/11/22 09/12/22 09/12/22 Range/Units 18:00 05:31 05:31 RBC 2.36 L (4.70-6.10) M/uL Hgb 7.7 L (14.0-18.0) g/dl Hct 23.4 L (42.0-52.0) % RDW Std Deviation 56.0 H (36.4-46.3) fL RDW Coeff of Bayron 15.4 H (11.5-14.5) % MPV 9.1 L (9.4-12.4) fL Lymph # (Auto) 1.03 L (1.2-3.4) K/uL Sodium 135 L (136-145) mmol/L BUN 37 H (6-23) mg/dl Creatinine 5.32 H* D (0.6-1.4) mg/dl BUN/Creatinine Ratio 7.0 L (10-20) POC Glucose 67 L* (70-99) mg/dl Calcium 7.7 L (8.6-10.3) mg/dl Phosphorus 5.5 H (2.5-4.9) mg/dl Random Vancomycin (10-20) mcg/ml 09/12/22 09/12/22 09/12/22 Range/Units 06:07 06:26 08:10 RBC (4.70-6.10) M/uL Hgb (14.0-18.0) g/dl Hct (42.0-52.0) % RDW Std Deviation (36.4-46.3) fL RDW Coeff of Bayron (11.5-14.5) % MPV (9.4-12.4) fL Lymph # (Auto) (1.2-3.4) K/uL Sodium (136-145) mmol/L BUN (6-23) mg/dl Creatinine (0.6-1.4) mg/dl BUN/Creatinine Ratio (10-20) POC Glucose 67 L* 126 H (70-99) mg/dl Calcium (8.6-10.3) mg/dl Phosphorus (2.5-4.9) mg/dl Random Vancomycin 21.5 H (10-20) mcg/ml
[2022-09-12] MEDS: PANTOprazole 40 MG in SYRINGE 0 ML IV SCH (13:28)
[2022-09-12] MEDS ORDERED: cefTAZidime 500 MG in DEXTROSE 5% 50 ML IV ONE (16:00)
[2022-09-12] MEDS: D5W AND NSS 1,000 ML IV SCH (16:06)
[2022-09-12] MEDS: LATANOPROST 0.005% OP SOLN 2.5 ML BTL OPB SCH (20:33)
[2022-09-13 06:15] LABS: Hematocrit (blood only) 21.2 % (42.0-52.0); Mean Corpuscular Hemoglobin 33.3 pg (25.0-34.0); Platelet Count 293 K/uL (130-400); RDW Coefficient of Variation 15.4 % (11.5-14.5); RDW Standard Deviation 56.1 fL (36.4-46.3); White Blood Count 5.41 K/ul (4.8-10.8)
[2022-09-13 06:36] LABS: BUN Creatinine Ratio 5.3 (10-20); Calcium 7.4 mg/dl (8.6-10.3); Creatinine Clr Calc Pharmacy 15.8 ml/min; Est GFR (Non-African American) 15.5 ml/min; Potassium 3.5 mmol/L (3.5-5.1)
[2022-09-13] MEDS: BUDESONIDE 0.25 MG/2 ML VIAL (PULMICORT) NEB SCH ×2 (07:06→19:11)
[2022-09-13] MEDS: FORMOTEROL 20 MCG/2 ML VIAL INH SCH ×2 (07:06→19:11)
[2022-09-13] MEDS: FUROSEMIDE 40 MG/4 ML VIAL IV SCH (08:49)
[2022-09-13] MEDS: HEPARIN SOD 5,000 UNIT/0.5 ML VIAL SQ SCH (08:49)
[2022-09-13] MEDS: SENNOSIDES 8.8 MG/5 ML UDC PO SCH ×2 (08:50→20:08)
--- NOTE | 2022-09-13 09:29 | Surgery Progress Note ---
Date of Service September 13, 2022 Assessment & Plan (1) Status post exploratory laparotomy: Plan: Patient's vital signs are stable and he is afebrile His H&H has dropped and is likely a combination of perioperative fluid shifts and possibly some mild bleeding Does not seem to have melena Interestingly his peritoneal fluid just prior to surgery and Intra-Op grew Pseudomonas-somewhat unlikely that this came from the bowel however there is always a possibility Also could have come from his peritoneal catheter We can advance his diet from a surgical standpoint May consider giving him a fleets enema and that he continues to have significant stool within his rectum although some was disimpacted in the operating room Admission and Anticipated Discharge Date Admission Date: September 05, 2022 Results & Data Vital Signs (Past 12 Hours) Vital Signs Temp Pulse Pulse Pulse Resp BP BP 09/13/22 07:59 66 09/13/22 07:53 36.7 C 75 18 115/64 09/13/22 07:06 72 18 09/13/22 02:31 37.1 C 65 17 118/65 09/12/22 23:00 74 09/12/22 22:39 36.7 C 73 17 117/66 Pulse Ox O2 Del Method 09/13/22 07:59 09/13/22 07:53 98 Room Air 09/13/22 07:06 96 Room Air 09/13/22 02:31 97 Room Air 09/12/22 23:00 09/12/22 22:39 96 Room Air PG Care Time/CCT Total # of Minutes Spent Total Time Spent with Patient: Total time spent is greater than 50% in coordination of care (as documented) at patient's floor/unit and/or counseling patient: Coding Level of Care Code None Diagnoses Status post exploratory laparotomy Z98.890
--- NOTE | 2022-09-13 09:56 | Nephrology Progress Note ---
Date of Service September 13, 2022 Assessment & Plan Admission and Anticipated Discharge Date Admission Date: September 05, 2022 Subjective Assessment & Plan (1) ESRD (end stage renal disease) on dialysis: Plan: ESRD on PD -PD catheter was taken out on 09/09. Had temporay HD catheter put in on 09/10, Dialysis catheter very positional. 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 vascular planning to put in tunnelled HD on . Cannot be restarted on PD. next HD tomorrow through temp HD cath Bp pretty good now. Was on demadex at home. will use iv lasix 80 daily from now. Plan is for Discharge to [facility]. (2) Abdominal pain: Plan: - Patient is now ex lap with colostomy -Renally dose antibiotics. (3) Stercoral colitis: Plan: ok with Miralax, if needed. Subjective had Dialysis. BP is fine. CVC is very positional and getting poor Qb. Making urine and has quezada. Also Liquid stool in the Colostomy. No acute distress, notable since overnight Does complain of some abdominal discomfort. Diet advanced a bit. Able to have good conversation with me. Review of Systems Review of Systems: All systems reviewed & are unremarkable except as noted in HPI & below Physical Exam Physical Exam: General: Ill-appearing but comfortable. CV:RRR, S1 S2, no m/r/g Pulm:CTA b/l Abd/GI: Soft, colostomy bag in-situ Ext:no pretibial edema Results & Data Vital Signs (Past 12 Hours) Vital Signs Temp Pulse Pulse Pulse Resp BP BP 09/13/22 07:59 66 09/13/22 07:53 36.7 C 75 18 115/64 09/13/22 07:06 72 18 09/13/22 02:31 37.1 C 65 17 118/65 09/12/22 23:00 74 09/12/22 22:39 36.7 C 73 17 117/66 Pulse Ox O2 Del Method 09/13/22 07:59 09/13/22 07:53 98 Room Air 09/13/22 07:06 96 Room Air 09/13/22 02:31 97 Room Air 09/12/22 23:00 09/12/22 22:39 96 Room Air
[2022-09-13] MEDS ORDERED: SOD PHOSPHATE/SOD BIPHOSPHATE ENEMA 132 ML BTL PR ONE ×2 (10:00→15:45)
[2022-09-13] MEDS: MoRPHine SULFATE 2 MG/ML CARP IV PRN ×2 (10:50→15:55)
[2022-09-13] MEDS: PANTOprazole 40 MG in SYRINGE 0 ML IV SCH (12:06)
[2022-09-13] MEDS: D5W AND NSS 1,000 ML IV SCH (12:06)
--- NOTE | 2022-09-13 12:16 | Hospitalist Progress Note ---
Date of Service September 13, 2022 Assessment & Plan (1) Bowel obstruction: (2) Status post exploratory laparotomy: (3) Colostomy in place: (4) Sepsis: (5) Peritonitis: (6) Stercoral colitis: (7) Constipation due to opioid therapy: Plan: Presented on 09/05/22 with abd pain, constipation and had low BP BP improved with 250 ml bolus x 2. CT A/P on 09/05/22 showed Moderate to large amount of liquid stool seen throughout the colon including a 9 x 8 cm rectal stool ball, Mild rectal wall thickening for the degree of distention is again noted. There is also mild perirectal edema. This could represent a stercoral proctitis. A few scattered foci of pneumoperitoneum seen within the upper abdomen which is likely due to the patient's peritoneal dialysis catheter. This has improved in the interval. No evidence for a small bowel obstruction. Patient stated he always had low blood pressure due to his dialysis. Patient was started on empirical antibiotics on admission Infectious workup on admission was negative Antibiotics was initially stopped on 09/07/22 after 48h of empirical therapy Chronic opioid induced constipation Patient was started on aggressive bowel regimen. Despite watery diarrhea, he continued to have pain and serial imaging showed persistent stool ball/rectal obstruction Repeat CT A/P on 09/08/22 noted no significant change in large stool ball within rectum, mild rectal wall thickening slightly increased, stool throughout colon, fluid filled mildly dilated small bowel without transition suggestive of ileus Repeat CT A/P 09/09/22 noted no significant change in pneumoperitoneum, increase in small bowel dilatation suggesting ileus or partial SBO, large stool in rectum Initial peritoneal fluid analysis on admission was negative for infection Repeat peritoneal fluid analysis on 09/09/22 showed increased WBC 2500 Likely due to bacterial translocation in setting of bowel obstruction Pre and intra op Peritoneal fluid culture from 09/09/22 grew pseudomonas aeruginosa Patient developed Small bowel obstruction as well on 09/09/22 Had exploratory laparotomy for bowel obstruction, sigmoid colostomy creation and removal of PD catheter by Dr Jorge on 09/09/22 POD#4 Extubated on 09/10/22 Continue IV ceftazidime for sepsis due to abdominal peritonitis Diet advanced to full liquid. (8) ESRD (end stage renal disease) on dialysis: Plan: Patient was on peritoneal dialysis 4x per day prior to admission Temporary catheter is quite positional. Will be removed after HD tomorrow Vasc surg planning tunneled HD on (9) Type 2 diabetes, diet controlled: Plan: Previously on metformin, now diet controlled Had hypoglycemic episodes due poor intake at this time with recent ex lap/colostomy With improving oral intake, stop IVF D5 saline Monitor blood glucose. Hypoglycemic protocol (10) Stroke: Plan: Completed 21 days of DAPT Hold ASA for now in view of small surgical site bleeding (11) Anemia of renal disease: Plan: Hb 7 today from 10 on 09/10/22 Acute on chronic anemia may be related to surgery/HD Repeat Hb is 7.3 Monitor Hb. Transfuse prn to keep Hb>7 (12) HLD (hyperlipidemia): (13) HTN (hypertension): Plan: Metoprolol and torsemide on hold for now (14) Gout: Plan: H/o Gout. Was on allopurinol (15) Lumbar stenosis with neurogenic claudication: (16) Hypokalemia: Plan: Resolved (17) Hyponatremia: Plan: Resolved Plan DVT prophylaxis: Hep sq on hold due to some surgical site bleeding now controlled I spent a total of 45 minutes coordinating, documenting and providing care for this patient excluding time spent in performance of separately billed services Admission and Anticipated Discharge Date Admission Date: September 05, 2022 Subjective Patient seen and examined Had some surgical site bleeding this morning. Addressed by Surgical team Denied any nausea,vomiting Denied any chest pain, cough, SOB Reports mild surgical site soreness. Tolerating po. Diet advanced to full liquid No bloody BM in colostomy Physical Exam Constitutional: + well hydrated; no acute distress Eyes: PERRL, conjunctivae normal, anicteric sclerae ENMT: external ear and nose normal, oropharynx normal Respiratory: normal respiratory effort, lungs clear to auscultation Cardiovascular: Rate/Rhythm: regular rate and regular rhythm S1 S2 Gastrointestinal (Abdomen): Surgical site dressing changed by surgical team, colostomy in situ Musculoskeletal: No pedal edema Neurologic: PERRL, EOMI, accommodation nl, no face palsy, no dysarthria Psychiatric: A+Ox3, euthymic affect Results & Data Results & Data Vital Signs (Past 12 Hours) Vital Signs Temp Pulse Pulse Pulse Resp BP BP 09/13/22 10:51 36.6 C 79 18 109/67 09/13/22 07:59 66 09/13/22 07:53 36.7 C 75 18 115/64 07/11/23 07:06 72 18 09/13/22 02:31 37.1 C 65 17 118/65 Pulse Ox O2 Del Method 09/13/22 10:51 99 Room Air 09/13/22 07:59 09/13/22 07:53 98 Room Air 09/13/22 07:06 96 Room Air 09/13/22 02:31 97 Room Air Laboratory Results Abnormal lab results 09/12/22 09/12/22 09/13/22 Range/Units 18:34 20:05 05:20 RBC (4.70-6.10) M/uL Hgb (14.0-18.0) g/dl Hct (42.0-52.0) % MCV (80.0-100.0) fL RDW Std Deviation (36.4-46.3) fL RDW Coeff of Bayron (11.5-14.5) % MPV (9.4-12.4) fL Creatinine (0.6-1.4) mg/dl BUN/Creatinine Ratio (10-20) Glucose (70-99(Fasting)) mg/dl POC Glucose 106 H 101 H 106 H (70-99) mg/dl Calcium (8.6-10.3) mg/dl 09/13/22 09/13/22 09/13/22 Range/Units 05:38 05:38 12:30 RBC 2.10 L 2.20 L (4.70-6.10) M/uL Hgb 7.0 L 7.3 L (14.0-18.0) g/dl Hct 21.2 L 22.3 L (42.0-52.0) % MCV 101.0 H 101.4 H (80.0-100.0) fL RDW Std Deviation 56.1 H 59.3 H (36.4-46.3) fL RDW Coeff of Bayron 15.4 H 15.9 H (11.5-14.5) % MPV 9.0 L 9.1 L (9.4-12.4) fL Creatinine 3.59 H D (0.6-1.4) mg/dl BUN/Creatinine Ratio 5.3 L (10-20) Glucose 100 H (70-99(Fasting)) mg/dl POC Glucose (70-99) mg/dl Calcium 7.4 L (8.6-10.3) mg/dl
[2022-09-13 13:00] LABS: Hematocrit (blood only) 22.3 % (42.0-52.0); Hemoglobin 7.3 g/dl (14.0-18.0); Mean Corpuscular Hemoglobin 33.2 pg (25.0-34.0); Mean Corpuscular Hgb Conc 32.7 g/dL (32.0-36.0); Mean Corpuscular Volume 101.4 fL (80.0-100.0); Mean Platelet Volume 9.1 fL (9.4-12.4); Platelet Count 307 K/uL (130-400); RDW Coefficient of Variation 15.9 % (11.5-14.5); RDW Standard Deviation 59.3 fL (36.4-46.3); White Blood Count 6.33 K/ul (4.8-10.8)
--- NOTE | 2022-09-13 13:03 | Consultation ---
Date of Consultation September 13, 2022 Assessment & Plan (1) ESRD on hemodialysis: Pt has had CAPD catheter removed, now planning to undergo HD permanently. Planning on permcath insertion in OR on MONDAY, after nursing to remove current temporary HD catheter tomorrow after his HD session. Pt is agreeable. Procedure, risks,benefits, and alternatives discussed with pt by myself at Dr Miller's request. Pt expresses understanding and agreeement. Pt's was present as well. History of Present Illness Reason for Consultation: permcath insertion Attending Physician: Carlie Ennis MD History of Present Illness 77 yo m with multiple medical problems, including ESRD on CAPD prior to arrival, DMII, chronic constipation, CVA, gout, glaucoma, HTN, hyperlipidemia, lumbar spinal stenosis on chronic opioid therapy, anemia, admitted for severe abd pain and found to have a severe bowel obstruction requiring ex lap with colostomy and removal of CAPD catheter. Pt states has been on PD at home since February. Never had AVF created for backup. He is now undergoing HD via R IJ temp HD catheter for past 1-2 weeks, but will require permcath for outpt continuing HD. Pt admits some pain in his abd incisions. Taking PO clears without N/V. Denies TOMAS, fever, chest pain, SOB, rest pain, ulcerations, other complaints. Allergies Allergy/AdvReac Type Severity Reaction Status Date / Time No Known Allergies Allergy Verified 09/03/22 13:55 Home Medications Medication Instructions Recorded Confirmed Type allopurinol 100 mg tablet 200 mg PO QAM 03/23/21 09/05/22 History latanoprost 0.005 % eye drops 1 drp OPB HS 03/23/21 09/05/22 History triamcinolone acetonide 0.1 % 1 applic topical DIRECTED PRN 03/23/21 09/05/22 History topical ointment Skin Irritation torsemide 100 mg tablet 100 mg PO DAILY 05/26/22 09/05/22 History aspirin 81 mg tablet,delayed 81 mg PO QAM #30 tabs 05/30/22 09/05/22 Rx release atorvastatin 40 mg tablet 40 mg PO QAM #30 tabs 05/30/22 09/05/22 Rx metoprolol succinate 25 mg 12.5 mg PO QAM 09/03/22 09/05/22 History tablet,extended release 24 hr potassium chloride 20 mEq 20 meq PO .EVERY OTHER DAY 09/03/22 09/05/22 History tablet,extended release(part/cryst) tramadol 50 mg tablet 50 - 100 mg PO Q6H PRN Pain 09/03/22 09/05/22 History sevelamer carbonate 800 mg tablet 800 mg PO TID 09/05/22 09/05/22 History vitamin B complex-vitamin C-folic 1 tab PO DAILY 09/05/22 09/05/22 History acid 0.8 mg tablet (Belinda-Moose) Patient History Medical History Anemia of renal disease Constipation due to opioid therapy ESRD (end stage renal disease) on dialysis Peritoneal dialysis Glaucoma Gout History of nephrolithiasis HLD (hyperlipidemia) HTN (hypertension) Lumbar stenosis with neurogenic claudication Prostate cancer Spondylolisthesis of lumbar region Stercoral colitis Type 2 diabetes, diet controlled Surgical History H/O exploratory laparotomy (09/09/22) Exploratory Laparotomy for Bowel Obstruction - Kishor Jorge MD, FACS History of lumbar fusion Hx of cataract extraction Hx of colonoscopy Hx of prostatectomy robotic assisted retropubic 2013 Family History Mother , at 88 Stroke Father , in 60s Heart disease Social History Smoking Status: Never smoker Tobacco Type: Smokeless Tobacco (Dip or Chew) Second Hand Exposure: No; Do You Dip or Chew Tobacco: Yes (1/2 can per day); Tobacco Cessation Education Requested by Patient: No Hx Alcohol Use: No Hx Substance Use: No Preferred Language: Tongan Communication Ability: Effective Hearing Ability: Hard of Hearing Hospital Chief Financial Officer Required: No Beliefs That Will Affect Care: None marital status: Current Living Situation: Spouse Feels Safe at Home: Yes Assistive Devices: Bedside Commode, Cane and Walker Review of Systems Review of Systems: All systems reviewed & are unremarkable except as noted in HPI & below Physical Exam Constitutional: WD/WN, vitals as above + thin and + frail appearing; not in distress ENMT: Ears: no hearing impairment Neck: trachea midline Respiratory: normal respiratory effort, lungs clear to auscultation Auscultation: + diminished lung sounds Cardiovascular: Rate/Rhythm: regular rate and regular rhythm Extremities: normal capillary refill and + vascular access device (R IJ temp HD catheter); no edema and no AV fistula Gastrointestinal (Abdomen): Inspection/Auscultation: + abdominal surgical incision (colostomy) and + abdominal surgical drain present Musculoskeletal: no cyanosis or clubbing, extremities motor strength 5/5 Skin: no rashes, warm and dry Neurologic: moves all extremities and awake; no focal motor deficits and not confused Psychiatric: A+Ox3, euthymic affect Results & Data Vital Signs (Past 12 Hours) Vital Signs Temp Pulse Pulse Pulse Resp BP BP 09/13/22 10:51 36.6 C 79 18 109/67 09/13/22 07:59 66 09/13/22 07:53 36.7 C 75 18 115/64 09/13/22 07:06 72 18 09/13/22 02:31 37.1 C 65 17 118/65 Pulse Ox O2 Del Method 09/13/22 10:51 99 Room Air 09/13/22 07:59 09/13/22 07:53 98 Room Air 09/13/22 07:06 96 Room Air 09/13/22 02:31 97 Room Air
[2022-09-13] MEDS: LATANOPROST 0.005% OP SOLN 2.5 ML BTL OPB SCH (20:08)
[2022-09-14] MEDS: MoRPHine SULFATE 2 MG/ML CARP IV PRN ×4 (04:31→20:51)
[2022-09-14 06:50] LABS: Hemoglobin 6.2 g/dl (14.0-18.0); Mean Corpuscular Hemoglobin 33.3 pg (25.0-34.0); Mean Corpuscular Hgb Conc 32.6 g/dL (32.0-36.0); Mean Corpuscular Volume 102.2 fL (80.0-100.0); Mean Platelet Volume 9.2 fL (9.4-12.4); Platelet Count 297 K/uL (130-400); RDW Coefficient of Variation 15.9 % (11.5-14.5); RDW Standard Deviation 59.7 fL (36.4-46.3); Red Blood Count 1.86 M/uL (4.70-6.10); White Blood Count 5.87 K/ul (4.8-10.8)
[2022-09-14] MEDS ORDERED: IRON SUCROSE 200 MG in SYRINGE 0 ML IV ONE (07:00)
[2022-09-14] MEDS ORDERED: EPOETIN ALFA 10,000 UNITS/ML VIAL IV ONE (07:00)
[2022-09-14] MEDS ORDERED: SODIUM CHLORIDE 0.9% 1000ML 1,000 ML IV PRN (07:00)
[2022-09-14] MEDS: FORMOTEROL 20 MCG/2 ML VIAL INH SCH (07:05)
[2022-09-14] MEDS: BUDESONIDE 0.25 MG/2 ML VIAL (PULMICORT) NEB SCH (07:05)
[2022-09-14 07:18] LABS: BUN Creatinine Ratio 6.4 (10-20); Calcium 7.4 mg/dl (8.6-10.3); Est GFR (Non-African American) 11.2 ml/min; Phosphorus 4.3 mg/dl (2.5-4.9); Potassium 3.6 mmol/L (3.5-5.1)
[2022-09-14] MEDS ORDERED: SODIUM CHLORIDE 0.9% 250 ML IV PRN ×2 (07:36→12:34)
--- NOTE | 2022-09-14 09:48 | Dialysis Progress Note ---
Date of Service September 14, 2022 Assessment & Plan Admission and Anticipated Discharge Date Admission Date: September 05, 2022 Subjective Assessment & Plan (1) ESRD (end stage renal disease) on dialysis: Plan: ESRD on PD -PD catheter was taken out on 09/09. Had temporay HD catheter put in on 09/10, Dialysis catheter very positional. vascular planning to put in tunnelled HD on . Cannot be restarted on PD. So far doing ok with Dialysis today Bp pretty good now. Was on demadex at home. Plan is for Discharge to [facility]. change to demadex 100 daily. (2) Abdominal pain: Plan: - Patient is now ex lap with colostomy -Renally dose antibiotics. (3) Stercoral colitis: Plan: ok with Miralax, if needed. Subjective Seen on dialysis. CVC postional but still getting 200-250Qb. . BP is fine. CVC is very positional and getting poor Qb. Making urine and has quezada. Also Liquid stool in the Colostomy. No acute distress, notable since overnight Does complain of some abdominal discomfort. Diet advanced a bit. Able to have good conversation with me. Review of Systems Review of Systems: All systems reviewed & are unremarkable except as noted in HPI & below Physical Exam Physical Exam: General: Ill-appearing but comfortable. CV:RRR, S1 S2, no m/r/g Pulm:CTA b/l Abd/GI: Soft, colostomy bag in-situ Ext:no pretibial edema Results & Data Vital Signs (Past 12 Hours) Vital Signs Temp Pulse Pulse Pulse Pulse Resp BP 09/14/22 09:30 66 118/63 09/14/22 09:15 72 102/64 09/14/22 08:15 36.4 C L 85 09/14/22 08:45 68 102/54 L 09/14/22 08:30 72 104/52 L 09/14/22 09:00 36.3 C L 68 101/56 L 09/14/22 08:20 76 104/56 L 09/14/22 08:44 36.4 C L 72 16 104/52 L 09/14/22 07:36 37.2 C 77 18 09/14/22 07:05 72 16 09/14/22 03:09 36.7 C 75 16 09/13/22 23:59 85 09/13/22 22:54 36.9 C 81 17 BP Pulse Ox O2 Del Method 09/14/22 09:30 09/14/22 09:15 09/14/22 08:15 09/14/22 08:45 09/14/22 08:30 09/14/22 09:00 09/14/22 08:20 09/14/22 08:44 09/14/22 07:36 130/68 98 Room Air 09/14/22 07:05 98 Room Air 09/14/22 03:09 111/67 95 Room Air 09/13/22 23:59 09/13/22 22:54 110/65 96 Room Air
[2022-09-14] MEDS: SENNOSIDES 8.8 MG/5 ML UDC PO SCH ×2 (12:21→20:51)
[2022-09-14] MEDS: PANTOprazole 40 MG in SYRINGE 0 ML IV SCH (12:22)
--- NOTE | 2022-09-14 16:26 | Hospitalist Progress Note ---
Date of Service September 14, 2022 Assessment & Plan (1) Bowel obstruction: (2) Status post exploratory laparotomy: (3) Colostomy in place: (4) Sepsis: (5) Peritonitis: (6) Stercoral colitis: (7) Constipation due to opioid therapy: Plan 77-year-old male with PMH of right MCA CVA [July 2022], ESRD on PD [4 times per day], chronic anemia, NIDDM 2 [diet-controlled, previously on metformin] associated with HTN and HLP, nephrolithiasis, prostate cancer status post prostatectomy, lumbar stenosis with claudication and glaucoma presented to the ED 09/05 due to intractable abdominal pain in the setting of chronic constipation likely secondary to opiate use. CT revealed a large amount of liquid stool, stool ball and stercoral proctitis. He is being managed for the following: At presentation: Sepsis associated hypotension, Stercoral colitis, constipation likely due to chronic opiate therapy Later on developed: Bowel obstruction status post exploratory laparotomy, peritonitis Presented 09/05/2022 with abdominal pain, constipation, low BP. BP improved with fluid bolus in the ED. Of note, patient reports he has low normal blood pressure in general due to his dialysis. Admitting CTAP:CT A/P on 09/05/22 showedModerate to large amount of liquid stool seen throughout the colon including a 9 x 8 cm rectal stool ball, Mild rectal wall thickening for the degree of distention is again noted. There is also mild perirectal edema. This could represent a stercoral proctitis. A few scattered foci of pneumoperitoneum seen within the upper abdomen which is likely due to the patient's peritoneal dialysis catheter. This has improved in the interval. No evidence for a small bowel obstruction. Patient was started on empirical antibiotics on admission, stopped 09/07/2022 after 48-hour of empirical therapy. Infectious workup on admission was negative. Patient was started on aggressive bowel regimen. Despite watery diarrhea, he continued to have pain and serial imaging showed persistent stool ball/rectal obstruction Repeat CT A/P on 09/08/22 noted no significant change in large stool ball within rectum, mild rectal wall thickening slightly increased, stool throughout colon, fluid filled mildly dilated small bowel without transition suggestive of ileus Repeat CT A/P 09/09/22 noted no significant change in pneumoperitoneum, increase in small bowel dilatation suggesting ileus or partial SBO, large stool in rectum Initial peritoneal fluid analysis on admission was negative for infection. Repeat peritoneal fluid analysis on 09/09/22 showed increased WBC 2500 Likely due to bacterial translocation in setting of bowel obstruction. Pre and intra op Peritoneal fluid culture from 09/09/22 grew pseudomonas aeruginosa Patient developed Small bowel obstruction as well on 09/09/22----->>>Had exploratory laparotomy for bowel obstruction, sigmoid colostomy creation and removal of PD catheter by Dr Jorge on 09/09/22. Extubated on 09/10/22, no further wheezing, resp nguyen pt has been stable on RA, will DC pumicort and formoterol NEB and INH 09/14. Will DC pt's iv ppi 09/14. Continue IV ceftazidime 09/13 for sepsis due to abdominal peritonitis Diet advanced to full liquid. Acute on chronic anemia on the background of anemia of renal disease: Complicated by recent abdominal surgery. Hemoglobin below 7 today, status post 2 unit PRBC. Follow-up H&H every 6 hours or as needed. Monitor Hb. Transfuse prn to keep Hb>7 ESRD (end stage renal disease) on dialysis: Patient was on peritoneal dialysis 4x per day prior to admission Temporary catheter is quite positional. Vasc surg planning tunneled HD on , NPO midnight. On HD, Nephro on board. Other chronic medical conditions: Continue with home meds as and when able. Type 2 diabetes, diet controlled: Previously on metformin, now diet controlled Had hypoglycemic episodes due poor intake at this time with recent ex lap/colostomy With improving oral intake, stop IVF D5 saline Monitor blood glucose. Hypoglycemic protocol Stroke: Completed 21 days of DAPT, Hold ASA for now in view of small surgical site bleeding HLD, HTN: Continue with home meds. Metoprolol (for high BP ) on hold d/t low BP. Gout: Was on allopurinol Lumbar stenosis with neurogenic claudication DVT prophylaxis: Hep sq on hold due to some surgical site bleeding Admission and Anticipated Discharge Date Admission Date: September 05, 2022 Subjective Patient seen and examined at bedside as a follow-up of sepsis, peritonitis, constipation due to opioid therapy, bowel obstruction, status post exploratory laparotomy. Patient was lying in bed, on room air, reports no new acute event overnight, reports he is not sure about bowel movement. Per RN, patient had loose bowel per rectum with no blood or black stool. Patient is eating okay. Patient reports belly pain, had just received pain medication prior to my exam. Patient denies fever or chills or chest pain. Physical Exam Physical Exam: GENERAL: Alert and oriented x3. NAD, on RA. appears ill/sick/frail/weak. HEENT: No pallor, no icterus. Pupils equal, round and reactive to light. Oral mucosa moist. Right IJ temporary HD catheter in place. NECK: No JVD, no neck masses. HEART: S1 and S2 heard. Regular rate and rhythm. No murmur, no gallop. RESPIRATORY SYSTEM: Normal AP diameter. No accessory muscle use. No wheezing, no crackles. ABDOMEN: Soft, bowel sounds present, nontender, no distention. Surgical dressing C/D/I. Colostomy in situ. Abdominal surgical drain present. CENTRAL NERVOUS SYSTEM: No facial droop. Speech is clear. Obeys simple commands. Moves extremities. EXTREMITIES: No edema, no erythema seen. Urinary catheter in situ with gadiel urine collection noted. Results & Data Results & Data Vital Signs (Past 12 Hours) Vital Signs Temp Pulse Pulse Pulse Resp BP BP 09/14/22 15:40 71 09/14/22 15:32 70 14 114/71 09/14/22 14:59 69 16 128/72 09/14/22 14:32 97 H 14 108/64 09/14/22 14:02 36.6 C 71 14 103/64 09/14/22 13:47 36.4 C L 76 14 107/67 09/14/22 13:29 36.5 C 72 16 99/63 L 09/14/22 11:50 36.5 C 73 09/14/22 11:54 36.5 C 80 16 123/53 L 09/14/22 11:00 69 123/74 09/14/22 10:30 62 116/62 09/14/22 10:15 63 100/63 09/14/22 10:00 70 101/59 L 09/14/22 07:00 67 09/14/22 09:46 36.4 C L 68 112/62 09/14/22 09:30 66 118/63 09/14/22 09:47 36.4 C L 18 112/62 09/14/22 09:15 72 102/64 09/14/22 08:15 36.4 C L 85 09/14/22 08:45 68 102/54 L 09/14/22 08:30 72 104/52 L 09/14/22 09:00 36.3 C L 68 101/56 L 09/14/22 08:20 76 104/56 L 09/14/22 08:44 36.4 C L 72 16 104/52 L 09/14/22 07:36 37.2 C 77 18 130/68 09/14/22 07:05 72 16 BP Pulse Ox O2 Del Method 09/14/22 15:40 09/14/22 15:32 97 09/14/22 14:59 98 09/14/22 14:32 97 09/14/22 14:02 99 09/14/22 13:47 98 09/14/22 13:29 99 09/14/22 11:50 106/61 09/14/22 11:54 97 Room Air 09/14/22 11:00 09/14/22 10:30 09/14/22 10:15 09/14/22 10:00 09/14/22 07:00 09/14/22 09:46 09/14/22 09:30 09/14/22 09:47 09/14/22 09:15 09/14/22 08:15 09/14/22 08:45 09/14/22 08:30 09/14/22 09:00 09/14/22 08:20 09/14/22 08:44 09/14/22 07:36 98 Room Air 09/14/22 07:05 98 Room Air
[2022-09-14 17:50] LABS: Hematocrit (blood only) 25.2 % (42.0-52.0); Hemoglobin 8.7 g/dl (14.0-18.0)
[2022-09-14] MEDS: FUROSEMIDE 40 MG/4 ML VIAL IV SCH (19:01)
[2022-09-14] MEDS: LATANOPROST 0.005% OP SOLN 2.5 ML BTL OPB SCH (20:52)
[2022-09-14 21:08] LABS: Hematocrit (blood only) 23.9 % (42.0-52.0); Hemoglobin 8.2 g/dl (14.0-18.0)
--- NOTE | 2022-09-15 05:57 | Surgery Progress Note ---
Date of Service September 15, 2022 Assessment & Plan (1) Status post exploratory laparotomy: Plan: tolerating full liquids- npo now for perm cath today- adv as tolerated after surgery H/H stable after 1 u RBCs likely d/c marine later today- place gauze ivelisse daily PT/OT colostomy care IV atbx for now- ? 2 weeks total (po) Admission and Anticipated Discharge Date Admission Date: September 05, 2022 Results & Data Vital Signs (Past 12 Hours) Vital Signs Temp Pulse Pulse Resp BP Pulse Ox O2 Del Method 09/14/22 23:59 75 09/15/22 03:13 36.6 C 69 18 110/57 L 97 Room Air 09/14/22 22:35 36.8 C 66 17 110/57 L 97 Room Air 09/14/22 19:08 37.1 C 77 18 105/55 L 97 Room Air PG Care Time/CCT Total # of Minutes Spent Total Time Spent with Patient: Total time spent is greater than 50% in coordination of care (as documented) at patient's floor/unit and/or counseling patient: Coding Level of Care Code 75924 Post Operative Follow-Up Diagnoses Status post exploratory laparotomy Z98.890
[2022-09-15 06:54] LABS: Hematocrit (blood only) 24.5 % (42.0-52.0); Hemoglobin 8.3 g/dl (14.0-18.0); Mean Corpuscular Hemoglobin 31.8 pg (25.0-34.0); Mean Corpuscular Hgb Conc 33.9 g/dL (32.0-36.0); Mean Corpuscular Volume 93.9 fL (80.0-100.0); Mean Platelet Volume 9.1 fL (9.4-12.4); Platelet Count 288 K/uL (130-400); RDW Coefficient of Variation 17.1 % (11.5-14.5); Red Blood Count 2.61 M/uL (4.70-6.10); White Blood Count 6.58 K/ul (4.8-10.8)
[2022-09-15 07:14] LABS: BUN Creatinine Ratio 6.1 (10-20); Calcium 7.6 mg/dl (8.6-10.3); Creatinine Clr Calc Pharmacy 16.5 ml/min; Est GFR (Non-African American) 16.4 ml/min; Magnesium 1.9 mg/dl (1.7-2.4); Phosphorus 3.1 mg/dl (2.5-4.9)
[2022-09-15] MEDS: MoRPHine SULFATE 2 MG/ML CARP IV PRN ×4 (07:25→22:13)
--- NOTE | 2022-09-15 08:53 | Communication Note ---
Date of Service: September 15, 2022 Temporary HD catheter was not removed yesterday as ordered/requested. Discussed with RN, they will have it removed today. Will move pt's permcath insertion procedure to tomorrow morning around 1000.
[2022-09-15] MEDS: TORSEMIDE 100 MG TAB PO SCH (09:14)
[2022-09-15] MEDS: SENNOSIDES 8.8 MG/5 ML UDC PO SCH ×2 (09:14→21:56)
--- NOTE | 2022-09-15 10:39 | Nephrology Progress Note ---
Date of Service September 15, 2022 Assessment & Plan Admission and Anticipated Discharge Date Admission Date: September 05, 2022 Subjective Assessment & Plan (1) ESRD (end stage renal disease) on dialysis: Plan: ESRD on PD -PD catheter was taken out on 09/09. Had temporary HD catheter put in on 09/10, Dialysis catheter very positional. vascular planning to put in tunnelled HD on . Cannot be restarted on PD. Tunnelled HD cath tomorrow and dialysis tomorrow. Bp pretty good now. Was on demadex at home. Plan is for Discharge to [facility]. demadex 100 daily. (2) Abdominal pain: Plan: - Patient is now ex lap with colostomy -Renally dose antibiotics. (3) Stercoral colitis: Plan: ok with Miralax, if needed. Subjective CVC positional but still getting 200-250Qb. . BP is fine. CVC is very positional and getting poor Qb. Making urine and has quezada. Also Liquid stool in the Colostomy. No acute distress, notable since overnight Does complain of some abdominal discomfort. Tunnelled Cath postponed for tomorrow. Diet being advanced. Review of Systems Review of Systems: All systems reviewed & are unremarkable except as noted in HPI & below Physical Exam Physical Exam: General: Ill-appearing but comfortable. CV:RRR, S1 S2, no m/r/g Pulm:CTA b/l Abd/GI: Soft, colostomy bag in-situ Ext:no pretibial edema Results & Data Vital Signs (Past 12 Hours) Vital Signs Temp Pulse Pulse Resp BP Pulse Ox O2 Del Method 09/15/22 08:00 71 09/15/22 07:36 37.0 C 79 18 108/65 97 Room Air 09/14/22 23:59 75 09/15/22 03:13 36.6 C 69 18 110/57 L 97 Room Air 09/14/22 22:35 36.8 C 66 17 110/57 L 97 Room Air
[2022-09-15 18:03] LABS: Hematocrit (blood only) 25.6 % (42.0-52.0); Hemoglobin 8.5 g/dl (14.0-18.0)
--- NOTE | 2022-09-15 18:07 | Hospitalist Progress Note ---
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 CT revealed a large amount of liquid stool, stool ball and stercoral proctitis. He is being managed for the following: At presentation: Sepsis associated hypotension, Stercoral colitis, constipation likely due to chronic opiate therapy Later on developed: Bowel obstruction status post exploratory laparotomy, peritonitis Presented 09/05/2022 with abdominal pain, constipation, low BP. BP improved with fluid bolus in the ED. Of note, patient reports he has low normal blood pressure in general due to his dialysis. Admitting CTAP:CT A/P on 09/05/22 showedModerate to large amount of liquid stool seen throughout the colon including a 9 x 8 cm rectal stool ball, Mild rectal wall thickening for the degree of distention is again noted. There is also mild perirectal edema. This could represent a stercoral proctitis. A few scattered foci of pneumoperitoneum seen within the upper abdomen which is likely due to the patient's peritoneal dialysis catheter. This has improved in the interval. No evidence for a small bowel obstruction. Patient was started on empirical antibiotics on admission, stopped 09/07/2022 after 48-hour of empirical therapy. Infectious workup on admission was negative. Patient was started on aggressive bowel regimen. Despite watery diarrhea, he continued to have pain and serial imaging showed persistent stool ball/rectal obstruction Repeat CT A/P on 09/08/22 noted no significant change in large stool ball within rectum, mild rectal wall thickening slightly increased, stool throughout colon, fluid filled mildly dilated small bowel without transition suggestive of ileus Repeat CT A/P 09/09/22 noted no significant change in pneumoperitoneum, increase in small bowel dilatation suggesting ileus or partial SBO, large stool in rectum Initial peritoneal fluid analysis on admission was negative for infection. Repeat peritoneal fluid analysis on 09/09/22 showed increased WBC 2500 Likely due to bacterial translocation in setting of bowel obstruction. Pre and intra op Peritoneal fluid culture from 09/09/22 grew pseudomonas aeruginosa Patient developed Small bowel obstruction as well on 09/09/22----->>>Had exploratory laparotomy for bowel obstruction, sigmoid colostomy creation and removal of PD catheter by Dr Jorge on 09/09/22. Extubated on 09/10/22, no further wheezing, resp nguyen pt has been stable on RA, DC'd pulmicort Neb and formoterol INH 09/14. Continue IV ceftazidime 09/13 for sepsis due to abdominal peritonitis. Per [facility] (Dr Gonzalez) (reached out to by pharmacist), recs is 21 day atb therapy, iv while inpatient then PO levaquin on dc to complete the course. When started, do levaquin 750 mg po x 1 f/b 500 mg q48h. QTc monitoring weekly while on levaquin. Diet advanced per Sx. Acute on chronic anemia on the background of anemia of renal disease: Complicated by recent abdominal surgery. Hemoglobin below 7 on 09/14, status post 2 unit PRBC. Follow-up H&H every 6 hours or as needed. Monitor Hb. Transfuse prn to keep Hb>7 ESRD (end stage renal disease) on dialysis: Patient was on peritoneal dialysis 4x per day prior to admission Temporary catheter is quite positional. Vasc surg planning tunneled HD on monday now, NPO midnight. On HD, Nephro on board. Other chronic medical conditions: Continue with home meds as and when able. Type 2 diabetes, diet controlled: Previously on metformin, now diet controlled Had hypoglycemic episodes due poor intake at this time with recent ex lap/colostomy With improving oral intake, stop IVF D5 saline Monitor blood glucose. Hypoglycemic protocol Stroke: Completed 21 days of DAPT, Hold ASA for now in view of small surgical site bleeding HLD, HTN: Continue with home meds. Metoprolol (for high BP ) on hold d/t low BP. Gout: Was on allopurinol Lumbar stenosis with neurogenic claudication DVT prophylaxis: Hep sq on hold due to some surgical site bleeding Admission and Anticipated Discharge Date Admission Date: September 05, 2022 Subjective Patient seen and examined at bedside as a follow-up of sepsis, peritonitis, constipation due to opioid therapy, bowel obstruction, status post exploratory laparotomy. Patient was lying in bed, on room air, reports no new acute event overnight. Per RN, patient had smear bowel movement per rectum with no blood or black stool. Patient is eating okay. Patient reports belly pain, doesn't appear in distress. Patient denies fever or chills or chest pain. Physical Exam Physical Exam: GENERAL: Alert and oriented x3. NAD, on RA. appears ill/sick/frail/weak. HEENT: No pallor, no icterus. Pupils equal, round and reactive to light. Oral mucosa moist. Right IJ temporary HD catheter in place. NECK: No JVD, no neck masses. HEART: S1 and S2 heard. Regular rate and rhythm. No murmur, no gallop. RESPIRATORY SYSTEM: Normal AP diameter. No accessory muscle use. No wheezing, no crackles. ABDOMEN: Soft, bowel sounds present, nontender, no distention. Surgical dressing C/D/I. Colostomy in situ. Abdominal surgical drain present. CENTRAL NERVOUS SYSTEM: No facial droop. Speech is clear. Obeys simple commands. Moves extremities. EXTREMITIES: No edema, no erythema seen. Urinary catheter in situ with gadiel urine collection noted. Results & Data Results & Data Vital Signs (Past 12 Hours) Vital Signs Temp Pulse Pulse Pulse Resp BP BP 09/15/22 15:30 36.8 C 71 71 18 118/69 09/15/22 15:18 74 09/15/22 12:45 73 16 117/66 09/15/22 12:30 72 14 116/67 09/15/22 12:15 69 14 118/64 09/15/22 12:00 72 16 114/67 09/15/22 11:45 65 65 16 106/64 09/15/22 11:00 36.8 C 76 16 110/56 L 09/15/22 08:00 71 09/15/22 07:36 37.0 C 79 18 108/65 Pulse Ox O2 Del Method 09/15/22 15:30 93 Room Air 09/15/22 15:18 09/15/22 12:45 99 Room Air 09/15/22 12:30 98 Room Air 09/15/22 12:15 97 Room Air 09/15/22 12:00 99 Room Air 09/15/22 11:45 99 Room Air 09/15/22 11:00 96 Room Air 09/15/22 08:00 09/15/22 07:36 97 Room Air
[2022-09-15] MEDS: LATANOPROST 0.005% OP SOLN 2.5 ML BTL OPB SCH (21:56)
[2022-09-16 06:31] LABS: Hematocrit (blood only) 23.7 % (42.0-52.0); Hemoglobin 8.1 g/dl (14.0-18.0); Mean Corpuscular Hemoglobin 32.4 pg (25.0-34.0); Mean Corpuscular Hgb Conc 34.2 g/dL (32.0-36.0); Mean Corpuscular Volume 94.8 fL (80.0-100.0); Platelet Count 312 K/uL (130-400); RDW Coefficient of Variation 16.5 % (11.5-14.5); RDW Standard Deviation 56.9 fL (36.4-46.3); White Blood Count 6.65 K/ul (4.8-10.8)
[2022-09-16 06:53] LABS: Calcium 7.5 mg/dl (8.6-10.3); Creatinine Clr Calc Pharmacy 12.5 ml/min; Est GFR (African American) 13.5 ml/min; Est GFR (Non-African American) 11.7 ml/min; Potassium 4.2 mmol/L (3.5-5.1)
[2022-09-16] MEDS ORDERED: EPOETIN ALFA 10,000 UNITS/ML VIAL IV ONE (07:00)
[2022-09-16] MEDS ORDERED: SODIUM CHLORIDE 0.9% 1000ML 1,000 ML IV PRN (07:00)
--- NOTE | 2022-09-16 07:32 | History & Physical Bridge Note ---
Date of Service September 16, 2022 History & Physical Bridge Note Patient for insertion of permcath today. I have discussed the risks options and benefits of the procedure with the patient. The patient understands the risks options and benefits and agrees to the procedure. I have examined the patient, reviewed the History & Physical and in the interval since the performance of the History & Physical I have noted the following changes of clinical significance: no changes noted
--- NOTE | 2022-09-16 10:45 | Nephrology Progress Note ---
Date of Service September 16, 2022 Assessment & Plan Admission and Anticipated Discharge Date Admission Date: September 05, 2022 Subjective Subjective Assessment & Plan (1) ESRD (end stage renal disease) on dialysis: Plan: ESRD on PD -PD catheter was taken out on 09/09. Had temporary HD catheter put in on 09/10, Dialysis catheter very positional. vascular planning to put in tunnelled HD today and will do HD after that. Cannot be restarted on PD. Bp pretty good now. Plan is for Discharge to [facility]. demadex 100 daily. with urine + colostomy output does not need much UF. (2) Abdominal pain: Plan: - Patient is now ex lap with colostomy for Bowel perf/peritonitis -Renally dose antibiotics. (3) Stercoral colitis: Plan: ok with Miralax, if needed. Subjective CVC positional but still getting 200-250Qb. . BP is fine. CVC is very positional and getting poor Qb. Making urine and has quezada. Also Liquid stool in the Colostomy. No acute distress, notable since overnight Does complain of some abdominal discomfort. Tunnelled Cath postponed for tomorrow. Diet being advanced. Review of Systems Review of Systems: All systems reviewed & are unremarkable except as noted in HPI & below Physical Exam Physical Exam: General: Ill-appearing but comfortable. CV:RRR, S1 S2, no m/r/g Pulm:CTA b/l Abd/GI: Soft, colostomy bag in-situ Ext:no pretibial edema Results & Data Vital Signs (Past 12 Hours) Vital Signs Temp Pulse Pulse Resp BP BP Pulse Ox 09/16/22 07:48 65 09/16/22 07:37 36.7 C 67 18 121/69 96 09/16/22 02:51 36.8 C 72 18 117/61 96 O2 Del Method 09/16/22 07:48 09/16/22 07:37 Room Air 09/16/22 02:51 Room Air
[2022-09-16] MEDS ORDERED: fentaNYL citrate PF 100 MCG/2 ML VIAL ONE (11:45)
[2022-09-16] MEDS ORDERED: HEPARIN SOD (PORCINE) 5,000 UNITS/ML VIAL ONE (11:45)
[2022-09-16] MEDS ORDERED: MIDAZOLAM HCL 1 MG/ML 2ML VIAL ONE (11:45)
[2022-09-16] MEDS ORDERED: LIDOCAINE 1% LOCAL 20 ML VIAL ONE (11:46)
--- NOTE | 2022-09-16 12:21 | Pre Anesthesia Assessment ---
Date of Service September 16, 2022 Pre Sedation Assessment Vital Signs Temp Pulse Pulse Pulse Resp BP BP 09/16/22 12:15 71 16 91/56 L 09/16/22 12:10 62 16 106/60 09/16/22 12:01 75 16 110/64 09/16/22 11:12 36.8 C 70 18 118/59 L 09/16/22 10:46 36.7 C 68 18 121/67 09/16/22 07:48 65 09/16/22 07:37 36.7 C 67 18 121/69 09/15/22 22:14 73 09/16/22 02:51 36.8 C 72 18 117/61 09/15/22 22:36 36.8 C 78 18 133/72 09/15/22 19:09 37 C 74 18 115/58 L 09/15/22 15:30 36.8 C 71 71 18 118/69 09/15/22 15:18 74 09/15/22 12:45 73 16 117/66 09/15/22 12:30 72 14 116/67 Pulse Ox O2 Del Method O2 Flow Rate 09/16/22 12:15 100 Oxymask 4 09/16/22 12:10 100 Oxymask 4 09/16/22 12:01 100 Oxymask 4 09/16/22 11:12 99 Room Air 09/16/22 10:46 98 Room Air 09/16/22 07:48 09/16/22 07:37 96 Room Air 09/15/22 22:14 09/16/22 02:51 96 Room Air 09/15/22 22:36 97 Room Air 09/15/22 19:09 97 Room Air 09/15/22 15:30 93 Room Air 09/15/22 15:18 09/15/22 12:45 99 Room Air 09/15/22 12:30 98 Room Air Cardiovascular RRR, no murmur, no edema Respiratory normal respiratory effort, lungs clear to auscultation Pre-Sedation Airway Assessment Smoking Status: Never smoker Hx Sleep Apnea: No Short, Thick Neck: No Thyromental Distance: > or= 3.5 Finger Breadths Oral Cavity: + WNL Mallampati Class: III ASA: ASA4 NPO Status Date of Last Intake of Fluids: 09/15/22 Time of Last Intake of Fluids: 18:00 Date of Last Intake of Solid Food: 09/15/22 Time of Last Intake of Solid Foods: 12:00 Procedure Planning Contraindications for Sedation: none Current Medications Reviewed: Yes Notes The planned sedation has been discussed with the patient. Informed Consent was obtained. I have identified the patient, determined the appropriateness of sedation and have assessed the patient immediately prior to the procedure. All medicine(s) and interventions are by my order.
--- NOTE | 2022-09-16 12:25 | Operative Report ---
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 The temporary catheter was pulled yesterday. He is here today for insertion of a PermCath. I have discussed the risks options and benefits of the procedure with the patient. The patient understands the risks options and benefits and agrees to the procedure. Description of Procedure Patient was taken to the angio suite and placed in the supine position. The right side of the neck and chest wall were prepped and draped in a sterile manner. The patient was identified and a timeout performed. Local anesthesia was then administered to the appropriate areas of the neck and chest wall. Ultrasound was then used to locate the right internal jugular vein. The vein compressed easily, had no filing defects, and was patent. The vein was then punctured under direct ultrasound imaging. A guidewire was then passed centrally under fluoroscopic imaging. A stab wound was then made in the ante rior chest wall and a 19 cm permcath was passed from the stab wound on the chest wall to the puncture site on the neck. The puncture site was then dilated till the 14Fr peel away sheath was inserted. The permcath was then inserted through the sheath to a central position in the distal superior vena cava. The peel away sheath was then removed. The catheter was then sutured in place using nylon sutures. The puncture was then closed using a 4-0 Vicryl subcuticular suture. Dermabond was used for a dressing on the puncture site. Both ports aspirated and flushed easily and were then packed with heparin. A sterile dressing was applied to the catheter. The patient left the operation room in satisfactory condition and tolerated the procedure well. All needle and sponge counts were correct at the end of the procedure. I attest to the content of the Intraoperative Record and any orders documented therein. Any exceptions are noted below.
--- NOTE | 2022-09-16 12:26 | Post Anesthesia Assessment ---
Date of Service September 16, 2022 Post Sedation Assessment Vital Signs Temp Pulse Pulse Pulse Resp BP BP 09/16/22 12:25 71 16 106/60 09/16/22 12:20 66 16 89/52 L 09/16/22 12:15 71 16 91/56 L 09/16/22 12:10 62 16 106/60 09/16/22 12:01 75 16 110/64 09/16/22 11:12 36.8 C 70 18 118/59 L 09/16/22 10:46 36.7 C 68 18 121/67 09/16/22 07:48 65 09/16/22 07:37 36.7 C 67 18 121/69 09/15/22 22:14 73 09/16/22 02:51 36.8 C 72 18 117/61 09/15/22 22:36 36.8 C 78 18 133/72 09/15/22 19:09 37 C 74 18 115/58 L 09/15/22 15:30 36.8 C 71 71 18 118/69 09/15/22 15:18 74 09/15/22 12:45 73 16 117/66 09/15/22 12:30 72 14 116/67 Pulse Ox O2 Del Method O2 Flow Rate 09/16/22 12:25 95 Room Air 0 09/16/22 12:20 98 Room Air 0 09/16/22 12:15 100 Oxymask 4 09/16/22 12:10 100 Oxymask 4 09/16/22 12:01 100 Oxymask 4 09/16/22 11:12 99 Room Air 09/16/22 10:46 98 Room Air 09/16/22 07:48 09/16/22 07:37 96 Room Air 09/15/22 22:14 09/16/22 02:51 96 Room Air 09/15/22 22:36 97 Room Air 09/15/22 19:09 97 Room Air 09/15/22 15:30 93 Room Air 09/15/22 15:18 09/15/22 12:45 99 Room Air 09/15/22 12:30 98 Room Air Recovery Score Activity: Moves 4 extremities Respiration: Deep Breath/Cough Circulation: +/-20% PreAnes Value Consciousness: Fully Awake Oxygen Saturation: > 92% On Room Air Post Anesthesia Score: 10 Discharge Sedation Level of Care: Fast Track Phase II Post Sedation Plan On clinical assessment, the patient appears to have tolerated the sedation without complications. Patient is recovering as anticipated. Patient will continue to be monitored by nursing and may be discharged when sedation discharge criteria are met per below protocol. Upon Completions of procedure up to 15 minutes continue every 5 minute vital signs and the P.A.R. score; then discharge to a Phase I or Fast Track to Phase II per the following guidelines: * Discharge Patient to appropriate Phase II area if PAR is 8 or greater or return to pre- procedure baseline. The post - procedure orders will be as directed. * If PAR score is less than 8 or not return to pre-procedure baseline then patient will follow Phase I monitoring till PAR is reached for Phase II. The Phase I may be done in procedure room or may call to secure a Phase I area. * If naloxone or flumazenil are used for reversal, hold in Phase I for continued monitoring from when last reversal dose was given for a minimum of 60 minutes or longer pending the nurse and/or physician discretion of patient condition before discharge to Phase II. Please call the Sedation Physician to re-evaluate and complete post-note for discharge to Phase II area. Do NOT discharge from procedure sedation or Phase 1 until post- sedation evaluation note is complete by procedure /sedation MD Sedation Discharge Instructions to be given to the patient at discharge to home.
--- NOTE | 2022-09-16 14:36 | Discharge Summary ---
Date of Service September 18, 2022 Admission HPI Per Admitting Provider Mr. 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 He presented due to intractable abdominal pain in the setting of chronic constipation. Here he is found to have Sepsis. CT reveals a large amount of liquid stool, a stool ball, and stercoral proctitis. He reports abdominal pain described as sharp and crampy, currently 0/10 but at worst 8/10. Pain escalates until he moves his bowels and then resolves until it begins to build up again. Pain is mainly in the RLQ and suprapubic area and radiates to the low back. He does not notice any other exacerbating or alleviating factors. This is associated with generalized weakness and poor oral intake. He denies dizziness, lightheadedness, f/c/n/v, cough, congestion, rhinorrhea, sore throat, CP/pressure, and dysuria. He does not decreased UOP despite diuretic therapy. He has no other complaints. Mr. Cason states this has been going on for a few weeks now, and is not any better or worse than before. He was seen in the ED 09/03/22 for the same problem with similar findings on imaging. He was treated with an enema which resulted in significant stool output so he was discharged home. He and his did not feel he was any better at that point. He has chronic long standing constipation d/t opiate therapy with Oxycodone which he stopped taking about 3 weeks prior. He used to take Milk of Magnesia which worked well but had to stop d/t progression to ESRD dependent on PD. He was given Miralax but states that never really did anything. He tried lactulose but that worked "too well" and caused uncontrollable diarrhea. ED Course: VS notable for HR 105 and BP 83/52, improved with 500 cc bolus. RR 22. b/w notable for h/h 12.6/35.1, Na 130, K 2.6, Cl 87, AG 19, BUN 58, Cr 6.27, glucose 146. Remaining CBC, CMP, and Mg are wnl/unremarkable. Trop I 45.6, ProCal 0.50. VBG pH 7.46, remaining VBG unimpressive. CXR: neg for acute pathology. CT abd/pelvis with Contrast; read as "Moderate to large amount of liquid stool seen throughout the colon including a 9 x 8 cm rectal stool ball. This is similar to the prior study. Mild rectal wall thickening for the degree of distention is again noted. There is also mild perirectal edema. This could represent a stercoral proctitis. A few scattered foci of pneumoperitoneum seen within the upper abdomen which is likely due to the patient's peritoneal dialysis catheter. This has improved in the interval. Small to moderate amount of ascites." Pt was given IVF. Zosyn is ordered, we are waiting for peritoneal fluid to be collected for testing prior to administration. He was also given a milk of molasses enema and admitted to hospitalist service. Admission Exam Per Admitting Provider General:NAD, appears older than stated age Head:NC, AT, temporal wasting, sunken cheeks Eyes: anicteric sclera, no conjunctival injection Nose:nares patent Mouth:MMM Neck:supple, trachea midline CV:RRR, S1 S2, no m/r/g Pulm:CTA b/l Abd/GI:+ BS, soft, tender to minimal palpation RLQ > suprabubic area, ND, no guarding :no quezada Ext:no pretibial edema MSK:normal bulk and tone Neuro:moving all 4 extremities, alert, oriented x 3. Left sided weakness at bas ines. Psych:pleasant mood and affect Skin:visible skin is warm, dry, and without rash. Pt not fully undressed for exam. Principal Diagnosis Sepsis associated hypotension, stercoral colitis, constipation likely due to chronic opiate therapy Bowel obstruction status post exploratory laparotomy, peritonitis ESRD on hemodialysis Acute on chronic anemia in the background of anemia of CKD Discharge Exam GENERAL: Alert and oriented x3. NAD, on RA. Appears motivated. HEENT: No pallor, no icterus. Pupils equal, round and reactive to light. Oral mucosa moist. Right IJ temporary HD catheter removed. NECK: No JVD, no neck masses. HEART: S1 and S2 heard. Regular rate and rhythm. No murmur, no gallop. RESPIRATORY SYSTEM: Normal AP diameter. No accessory muscle use. No wheezing, no crackles. ABDOMEN: Soft, bowel sounds present, nontender, no distention. Surgical dressing C/D/I. Colostomy in situ. CENTRAL NERVOUS SYSTEM: No facial droop. Speech is clear. Obeys simple commands. Moves extremities. EXTREMITIES: No edema, no erythema seen. Discharge Data Allergies Allergy/AdvReac Type Severity Reaction Status Date / Time No Known Allergies Allergy Verified 09/03/22 13:55 Consultations 09/05/22 12:55 ED Decision to Admit Stat 09/05/22 15:11 Consult Nephrology Routine 09/05/22 15:16 Consult Gastroenterology Routine 09/09/22 07:29 Consult General Surgery Routine 09/09/22 20:25 Consult Parts Department Supervisor Routine 09/09/22 20:44 Consult Parts Department Supervisor Routine 09/12/22 12:03 Consult Vascular Surgery Routine Procedures Performed Operation Date: 09/16/22 10:20 Actual Procedures p Perm Cath Insertion Right Jugular Vein, Ultrasound Localization of Right Jugular Vein, Fluoroscopy for Positioning, Moderate Sedation [id number](Right) - Kimani Miller MD Ordered Studies 09/05/22 11:25 CT abd pelvis IV con only Stat 09/08/22 14:35 CT Abd and Pelvis [CT abd pelvis wo con] Stat 09/09/22 02:15 CT Abd and Pelvis [CT abd pelvis wo con] Stat 09/10/22 10:22 US point of care ultrasound Urgent 09/16/22 07:15 EV cvc insrt tunnel wo prt/rf test technician Routine Hospital Course (1) Bowel obstruction: (2) Status post exploratory laparotomy: (3) Colostomy in place: (4) Sepsis: (5) Peritonitis: (6) Stercoral colitis: (7) Constipation due to opioid therapy: Plan 77-year-old male with PMH of right MCA CVA [July 2022], ESRD on PD [4 times per day], chronic anemia, NIDDM 2 [diet-controlled, previously on metformin] associated with HTN and HLP, nephrolithiasis, prostate cancer status post prostatectomy, lumbar stenosis with claudication and glaucoma presented to the ED 09/05 due to intractable abdominal pain in the setting of chronic constipation likely secondary to opiate use. CT revealed a large amount of liquid stool, stool ball and stercoral proctitis. He was managed for the following: At presentation: Sepsis associated hypotension, Stercoral colitis, constipation likely due to chronic opiate therapy Later on developed: Bowel obstruction status post exploratory laparotomy, peritonitis Presented 09/05/2022 with abdominal pain, constipation, low BP. BP improved with fluid bolus in the ED. Of note, patient reports he has low normal blood pressure in general due to his dialysis. Admitting CTAP:CT A/P on 09/05/22 showedModerate to large amount of liquid stool seen throughout the colon including a 9 x 8 cm rectal stool ball, Mild rectal wall thickening for the degree of distention is again noted. There is also mild perirectal edema. This could represent a stercoral proctitis. A few scattered foci of pneumoperitoneum seen within the upper abdomen which is likely due to the patient's peritoneal dialysis catheter. This has improved in the interval. No evidence for a small bowel obstruction. Patient was started on empirical antibiotics on admission, stopped 09/07/2022 after 48-hour of empirical therapy. Infectious workup on admission was negative. Patient was started on aggressive bowel regimen. Despite watery diarrhea, he continued to have pain and serial imaging showed persistent stool ball/rectal obstruction Repeat CT A/P on 09/08/22 noted no significant change in large stool ball w ithin rectum, mild rectal wall thickening slightly increased, stool throughout colon, fluid filled mildly dilated small bowel without transition suggestive of ileus Repeat CT A/P 09/09/22 noted no significant change in pneumoperitoneum, increase in small bowel dilatation suggesting ileus or partial SBO, large stool in rectum Initial peritoneal fluid analysis on admission was negative for infection. Repeat peritoneal fluid analysis on 09/09/22 showed increased WBC 2500 Likely due to bacterial translocation in setting of bowel obstruction. Pre and intra op Peritoneal fluid culture from 09/09/22 grew pseudomonas aeruginosa Patient developed Small bowel obstruction as well on 09/09/22----->>>Had exploratory laparotomy for bowel obstruction, sigmoid colostomy creation and removal of PD catheter by Dr Jorge on 09/09/22. Continue IV ceftazidime 09/13 for sepsis due to abdominal peritonitis. Per [facility] ID (Dr Gonzalez) (reached out to by pharmacist), recs is 21 day atb therapy, iv while inpatient then PO levaquin on dc to complete the course. When started, do levaquin 750 mg po x 1 f/b 500 mg q48h. QTc monitoring weekly while on levaquin. Diet advanced per Sx. Colostomy care per Sx recs. Acute on chronic anemia on the background of anemia of renal disease: Complicated by recent abdominal surgery. Hemoglobin below 7 on 09/14, status post 2 unit PRBC. Follow-up H&H as needed. Stable lately. Monitor Hb. Transfuse prn to keep Hb>7 ESRD (end stage renal disease) on dialysis: Patient was on peritoneal dialysis 4x per day prior to admission s/p perm cath 09/16. On HD, Nephro on board. Other chronic medical conditions: Continue with home meds as and when able. Type 2 diabetes, diet controlled: Previously on metformin, now diet controlled Had hypoglycemic episodes due poor intake at this time with recent ex lap/colostomy With improving oral intake, stop IVF D5 saline Monitor blood glucose. Hypoglycemic protocol Stroke: Completed 21 days of DAPT, c/w home aspirin HLD, HTN: Continue with home meds. Metoprolol (for high BP ) on hold d/t low BP. Gout: Was on allopurinol Lumbar stenosis with neurogenic claudication DVT prophylaxis: Hep sq. Patient being discharged to [facility] with following instruction at the point of discharge: Follow-up with your primary care physician within a week time and likely you will need labs CBC/CMP/magnesium/phosphorus. Patient underwent exploratory laparotomy for small bowel obstruction. Continue colostomy care. Patient also had Pseudomonas peritonitis. He will be discharged after today's dose of IV ceftazidime. He is to start on Levaquin from 09/19/2022 as: Levaquin 750 mg p.o. x1 followed by Levaquin 500 mg every 48 hours. He will need EKG weekly for QTc monitoring until the duration of Levaquin. He will need 15 more days of Levaquin therapy. Start date of antibiotic 09/13/2022. End date of antibiotic 10/03/2022. Total of 3 weeks therapy. Patient can use as needed pain medication for pain management. Can advance the diet as tolerated to low fiber diet. Maintain hemodialysis schedule. Please make sure that you are able to get your medications today by calling your pharmacy before you leave the hospital so that your treatment continuity is not broken. Home Health Attestation I certify that this patient is under my care and that I, or a physicians fast food assistant restaurant manager working with me, had a face to-face encounter that meets the home health [id number] encounter requirements with this patient. The encounter with the patient was in whole, or in part, for the following medical condition, which is the primary reason for home health care (list medical condition): I certify that, based on my findings, the following services are medically necessary home health services: My clinical findings support the need for the above services because: Further, I certify that my clinical findings support that this patient is homebound (i.e. absences from home require considerable and taxing effort and are for medical reasons or quaker services or infrequently or of short duration when for other reasons) because: Certification for Home Health Services: Based on the above findings, I certify that this patient is confined to the home and needs intermittent longterm care, physical therapy and/or speech therapy or continues to need occupational therapy. The patient is under my care, and I have initiated the establishment of the plan of care. This patient will be followed by a physician who will periodically review the plan of care. Total Time Total Time Spent Total Time Spent (In Minutes): 55 Discharge Plan Discharge Items Patient Disposition: Transfer Inpatient Rehab Fac Reason For Visit: SEPSIS Discharge Diagnosis: Sepsis associated hypotension, stercoral colitis, constipation likely due to chronic opiate therapy Bowel obstruction status post exploratory laparotomy, peritonitis ESRD on hemodialysis Acute on chronic anemia in the background of anemia of CKD Activity: Per Instructions section Exercise/Sports: Wait until after follow-up appointment Non-emergency contact: Primary Care Provider Call non-emergency contact if: you have any medication questions, your pain is not controlled, your pain is worsening, you have a fever, your temperature is above 101.5, your wound has increased redness, your wound has increased drainage and your wound pain has increased Follow-up/Referrals: Kishor Jorge MD, FACS [Physician] - Barrett Dacosta MD [Primary Care Provider] - Diet: Carb Consistent or DM2 Addtl Attending Provider Instructions: Follow-up with your primary care physician within a week time and likely you will need labs CBC/CMP/magnesium/phosphorus. Patient underwent exploratory laparotomy for small bowel obstruction. Continue colostomy care. Midline abdominal incision is being dressing with single layer of Xeroform, 4 x 4 gauze and tape. Please change this daily. Patient also had Pseudomonas peritonitis. He will be discharged after today's dose of IV ceftazidime. He is to start on Levaquin from 09/19/2022 as: Levaquin 750 mg p.o. x1 followed by Levaquin 500 mg every 48 hours. He will need EKG weekly for QTc monitoring until the duration of Levaquin. Start date of antibiotic 09/13/2022. End date of antibiotic 10/03/2022. Total of 3 weeks therapy. Probiotics will be added. Patient can use as needed pain medication for pain management. Can advance the diet as tolerated to low fiber diet. Maintain hemodialysis schedule. Please make sure that you are able to get your medications today by calling your pharmacy before you leave the hospital so that your treatment continuity is not broken. SPECIAL CARE INSTRUCTIONS: * Cover incisions and change daily for comfort/drainage. * Empty drain 2-3 times per day and record. * May use ibuprofen for pain as tolerated. * Expect some swelling and bruising. Call your doctor if: * Temperature above 101 degrees * Pain not relieved by pain medicine ordered * There is increased drainage or redness from any incision * You have any unanswered questions or concerns [phone]. FOLLOW UP VISIT: If not already scheduled, please call the office for a follow-up visit. OFFICE PHONE NUMBER: Dr. Jorge Office follow up in 1-2 weeks for staple removal Pending Studies at Discharge: No Stand-Alone Forms: My [facility] Skilled Items Patient informed of condition?: Yes DNR: Yes Discharge Level of Care: Acute rehab Communicable Disease: No Discharge Prognosis: Stable Lines: None Urinary Catheter: No Medications and DC Order Prescriptions: New sennosides [senna] 8.8 mg/5 mL syrup 5 ml PO BID Qty: 237 0RF levofloxacin 750 mg tablet 750 mg PO DAILY 1 Days Qty: 1 0RF Rx Instructions: For Date 09/19/22. levofloxacin 500 mg tablet 500 mg PO Q48H 13 Days Qty: 7 0RF Rx Instructions: Start date 09/21/22. End date 10/03/22. Continued latanoprost 0.005 % drops 1 drp OPB HS allopurinol 100 mg tablet 200 mg PO QAM triamcinolone acetonide 0.1 % ointment 1 applic TOPICAL DIRECTED PRN (Reason: Skin Irritation) tramadol 50 mg tablet 50 - 100 mg PO Q6H PRN (Reason: Pain) potassium chloride 20 mEq tablet,ER particles/crystals 20 meq PO .EVERY OTHER DAY torsemide 100 mg tablet 100 mg PO DAILY atorvastatin 40 mg Tablet 40 mg PO QAM Qty: 30 0RF aspirin 81 mg Tablet,Delayed Release (Dr/Ec) 81 mg PO QAM Qty: 30 1RF Belinda-Moose 0.8 mg tablet 1 tab PO DAILY sevelamer carbonate 800 mg tablet 800 mg PO TID Held metoprolol succinate 25 mg tablet extended release 24 hr 12.5 mg PO QAM Hold Instructions: Resume on 09/20/22. Was used for HTN, hold until BP improves to high normal. Discharge Orders: Discharge Order (Routine); Ordered 09/18/22 Ordered By: Cristina Rojas Admission Data Admit Date/Time: 09/05/22 13:57 Attending Provider: Cristina Rojas Admit Provider: Michelle Clements Primary Care Provider: Barrett Dacosta Other Providers: Leonides Reyes ; Rayshawn Reed ; Medhat Gonzalez ; Arnaldo Rowe ; Juan Forrest ; Deandre Matute ; Florentin Martinez ; Alba Saenz ; Lio Douglas ; Dede Mcnair ; [facility] ; [place] ; Michelle Clements ; Conor Cordova ; Rukhsana Gunter ; Kishor Jorge ; Melony Benito ; Syd Alfaro ; Samuel Ha ; Patriico Rodriguze ; Devon Killian ; Connie Siegel ; Rafael Salinas ; Gene Cunningham ; Wendi Rodriguez ; Sylvester Lester ; Kimani Miller Other Interventions: Discharge Summary Assessment (RN) Last Done: 09/18/22 11:05
--- NOTE | 2022-09-16 14:37 | Hospitalist Progress Note ---
Date of Service September 16, 2022 Assessment & Plan (1) Bowel obstruction: (2) Status post exploratory laparotomy: (3) Colostomy in place: (4) Sepsis: (5) Peritonitis: (6) Stercoral colitis: (7) Constipation due to opioid therapy: Plan 77-year-old male with PMH of right MCA CVA [July 2022], ESRD on PD [4 times per day], chronic anemia, NIDDM 2 [diet-controlled, previously on metformin] associated with HTN and HLP, nephrolithiasis, prostate cancer status post prostatectomy, lumbar stenosis with claudication and glaucoma presented to the ED 09/05 due to intractable abdominal pain in the setting of chronic constipation likely secondary to opiate use. CT revealed a large amount of liquid stool, stool ball and stercoral proctitis. He was managed for the following: At presentation: Sepsis associated hypotension, Stercoral colitis, constipation likely due to chronic opiate therapy Later on developed: Bowel obstruction status post exploratory laparotomy, peritonitis Presented 09/05/2022 with abdominal pain, constipation, low BP. BP improved with fluid bolus in the ED. Of note, patient reports he has low normal blood pressure in general due to his dialysis. Admitting CTAP:CT A/P on 09/05/22 showedModerate to large amount of liquid stool seen throughout the colon including a 9 x 8 cm rectal stool ball, Mild rectal wall thickening for the degree of distention is again noted. There is also mild perirectal edema. This could represent a stercoral proctitis. A few scattered foci of pneumoperitoneum seen within the upper abdomen which is likely due to the patient's peritoneal dialysis catheter. This has improved in the interval. No evidence for a small bowel obstruction. Patient was started on empirical antibiotics on admission, stopped 09/07/2022 after 48-hour of empirical therapy. Infectious workup on admission was negative. Patient was started on aggressive bowel regimen. Despite watery diarrhea, he continued to have pain and serial imaging showed persistent stool ball/rectal obstruction Repeat CT A/P on 09/08/22 noted no significant change in large stool ball within rectum, mild rectal wall thickening slightly increased, stool throughout colon, fluid filled mildly dilated small bowel without transition suggestive of ileus Repeat CT A/P 09/09/22 noted no significant change in pneumoperitoneum, inc rease in small bowel dilatation suggesting ileus or partial SBO, large stool in rectum Initial peritoneal fluid analysis on admission was negative for infection. Repeat peritoneal fluid analysis on 09/09/22 showed increased WBC 2500 Likely due to bacterial translocation in setting of bowel obstruction. Pre and intra op Peritoneal fluid culture from 09/09/22 grew pseudomonas aeruginosa Patient developed Small bowel obstruction as well on 09/09/22----->>>Had exploratory laparotomy for bowel obstruction, sigmoid colostomy creation and removal of PD catheter by Dr Jorge on 09/09/22. Continue IV ceftazidime 09/13 for sepsis due to abdominal peritonitis. Per [facility] ID (Dr Gonzalez) (reached out to by pharmacist), recs is 21 day atb therapy, iv while inpatient then PO levaquin on dc to complete the course. When started, do levaquin 750 mg po x 1 f/b 500 mg q48h. QTc monitoring weekly while on levaquin. Diet advanced per Sx. Acute on chronic anemia on the background of anemia of renal disease: Complicated by recent abdominal surgery. Hemoglobin below 7 on 09/14, status post 2 unit PRBC. Follow-up H&H every 6 hours or as needed. Monitor Hb. Transfuse prn to keep Hb>7 ESRD (end stage renal disease) on dialysis: Patient was on peritoneal dialysis 4x per day prior to admission Temporary catheter is quite positional. taken out today for plan of placing perm cath today. On HD, Nephro on board. Other chronic medical conditions: Continue with home meds as and when able. Type 2 diabetes, diet controlled: Previously on metformin, now diet controlled Had hypoglycemic episodes due poor intake at this time with recent ex lap/colostomy With improving oral intake, stop IVF D5 saline Monitor blood glucose. Hypoglycemic protocol Stroke: Completed 21 days of DAPT, Hold ASA for now in view of small surgical site bleeding HLD, HTN: Continue with home meds. Metoprolol (for high BP ) on hold d/t low BP. Gout: Was on allopurinol Lumbar stenosis with neurogenic claudication DVT prophylaxis: Hep sq on hold due to some surgical site bleeding Admission and Anticipated Discharge Date Admission Date: September 05, 2022 Subjective Patient seen and examined at bedside as a follow-up of sepsis, peritonitis, constipation due to opioid therapy, bowel obstruction, status post exploratory laparotomy. Patient was lying in bed, on room air, reports no new acute event overnight. Patient is awaiting perm cath placement today. Patient reports belly pain under control, doesn't appear in distress. Patient denies fever or chills or chest p ain. Physical Exam Physical Exam: GENERAL: Alert and oriented x3. NAD, on RA. Appears motivated. HEENT: No pallor, no icterus. Pupils equal, round and reactive to light. Oral mucosa moist. Right IJ temporary HD catheter removed. NECK: No JVD, no neck masses. HEART: S1 and S2 heard. Regular rate and rhythm. No murmur, no gallop. RESPIRATORY SYSTEM: Normal AP diameter. No accessory muscle use. No wheezing, no crackles. ABDOMEN: Soft, bowel sounds present, nontender, no distention. Surgical dressing C/D/I. Colostomy in situ. CENTRAL NERVOUS SYSTEM: No facial droop. Speech is clear. Obeys simple commands. Moves extremities. EXTREMITIES: No edema, no erythema seen. Urinary catheter in situ with gadiel urine collection noted. Results & Data Results & Data Vital Signs (Past 12 Hours) Vital Signs Temp Pulse Pulse Pulse Resp BP BP 09/16/22 14:00 74 108/69 09/16/22 13:30 77 116/72 09/16/22 12:34 84 110/60 09/16/22 13:00 71 112/69 09/16/22 12:30 36.3 C L 78 09/16/22 12:25 71 16 09/16/22 12:20 66 16 09/16/22 12:15 71 16 09/16/22 12:10 62 16 09/16/22 12:01 75 16 09/16/22 12:30 36.3 C L 78 106/60 09/16/22 11:12 36.8 C 70 18 118/59 L 09/16/22 10:46 36.7 C 68 18 09/16/22 07:48 65 09/16/22 07:37 36.7 C 67 18 09/16/22 02:51 36.8 C 72 18 117/61 BP Pulse Ox O2 Del Method O2 Flow Rate 09/16/22 14:00 09/16/22 13:30 09/16/22 12:34 09/16/22 13:00 09/16/22 12:30 09/16/22 12:25 106/60 95 Room Air 0 09/16/22 12:20 89/52 L 98 Room Air 0 09/16/22 12:15 91/56 L 100 Oxymask 4 09/16/22 12:10 106/60 100 Oxymask 4 09/16/22 12:01 110/64 100 Oxymask 4 09/16/22 12:30 09/16/22 11:12 99 Room Air 09/16/22 10:46 121/67 98 Room Air 09/16/22 07:48 09/16/22 07:37 121/69 96 Room Air 09/16/22 02:51 96 Room Air
[2022-09-16 15:00] LABS: Hematocrit (blood only) 27.7 % (42.0-52.0); Hemoglobin 9.2 g/dl (14.0-18.0)
[2022-09-16] MEDS: SENNOSIDES 8.8 MG/5 ML UDC PO SCH ×2 (15:28→20:26)
--- NOTE | 2022-09-16 15:47 | Surgery Progress Note ---
This patient was discussed with the surgical PA. I agree with this plan. Date of Service September 16, 2022 Assessment & Plan (1) Status post exploratory laparotomy: Plan: Seen in HD unit, pt underwent permcath placement today w/ vascular WBC 6.5, Hbg 8.1. vitals stable On fulls, may continue to adv to low fiber as tolerates Ostomy functioning Midline wound w/ alessia and nu-gauze wick packing to inferior and superior poles Abx for total of 2 weeks recommended, may do po Dispo planning per medicine when accepted to facility Admission and Anticipated Discharge Date Admission Date: September 05, 2022 Subjective Patient seen in dialysis unit. Has some belly pain, but is manageable and not worsening. No nausea/vomiting. Underwent permacath placement today. Physical Exam Physical Exam: awake, resting in dialysis Respiratory: normal respiratory effort Gastrointestinal (Abdomen): Inspection/Auscultation: + abdominal surgical incision (midline c/d/i, surgical alessia intact w/ nu-gauze ivelisse. ); abdomen not distended Percussion/Palpation: abdomen soft; abdomen nontender ostomy viable and functioning Results & Data Vital Signs (Past 12 Hours) Vital Signs Temp Pulse Pulse Pulse Resp BP BP 09/16/22 15:30 75 103/73 09/16/22 15:00 78 104/64 09/16/22 14:30 76 116/80 09/16/22 14:00 74 108/69 09/16/22 13:30 77 116/72 09/16/22 12:34 84 110/60 09/16/22 13:00 71 112/69 09/16/22 12:30 36.3 C L 78 09/16/22 12:25 71 16 09/16/22 12:20 66 16 09/16/22 12:15 71 16 09/16/22 12:10 62 16 09/16/22 12:01 75 16 09/16/22 12:30 36.3 C L 78 106/60 09/16/22 11:12 36.8 C 70 18 118/59 L 09/16/22 10:46 36.7 C 68 18 09/16/22 07:48 65 09/16/22 07:37 36.7 C 67 18 BP Pulse Ox O2 Del Method O2 Flow Rate 09/16/22 15:30 09/16/22 15:00 09/16/22 14:30 09/16/22 14:00 09/16/22 13:30 09/16/22 12:34 09/16/22 13:00 09/16/22 12:30 09/16/22 12:25 106/60 95 Room Air 0 09/16/22 12:20 89/52 L 98 Room Air 0 09/16/22 12:15 91/56 L 100 Oxymask 4 09/16/22 12:10 106/60 100 Oxymask 4 09/16/22 12:01 110/64 100 Oxymask 4 09/16/22 12:30 09/16/22 11:12 99 Room Air 09/16/22 10:46 121/67 98 Room Air 09/16/22 07:48 09/16/22 07:37 121/69 96 Room Air PG Care Time/CCT Total # of Minutes Spent Total Time Spent with Patient: Total time spent is greater than 50% in coordination of care (as documented) at patient's floor/unit and/or counseling patient: Coding Level of Care Code 34781 Post Operative Follow-Up Diagnoses Status post exploratory laparotomy Z98.890
[2022-09-16] MEDS: TORSEMIDE 100 MG TAB PO SCH (17:48)
[2022-09-16] MEDS: LATANOPROST 0.005% OP SOLN 2.5 ML BTL OPB SCH (20:16)
[2022-09-16] MEDS ORDERED: GLUCOSE 10 TAB/TUBE PO PRN (22:27)
[2022-09-16] MEDS ORDERED: CARBOHYDRATES FOR HYPOGLYCEMIA PO PRN (22:27)
[2022-09-16] MEDS ORDERED: GLUCOSE 40% GEL 15 GM TUBE PO PRN (22:27)
[2022-09-16] MEDS ORDERED: DEXTROSE 50% 50 ML SYRINGE IV PRN (22:27)
[2022-09-16] MEDS ORDERED: GLUCAGON FOR INJ 1 MG VIAL SQ PRN (22:27)
[2022-09-16] MEDS: INSULIN ASPART PER UNIT CHARGE SC SCH (22:46)
[2022-09-17] MEDS: MoRPHine SULFATE 2 MG/ML CARP IV PRN (08:19)
[2022-09-17] MEDS: TORSEMIDE 100 MG TAB PO SCH (08:19)
[2022-09-17] MEDS: SENNOSIDES 8.8 MG/5 ML UDC PO SCH ×2 (09:03→20:51)
[2022-09-17] MEDS: INSULIN ASPART PER UNIT CHARGE SC SCH ×4 (09:03→20:37)
--- NOTE | 2022-09-17 12:29 | Surgery Progress Note ---
Beryl was seen this am with the surgical PA. I agree with this plan Date of Service September 17, 2022 Assessment & Plan (1) Status post exploratory laparotomy: Plan: 09/17/2022 POD #8 s/p Ex Lap, Sigmoid Colostomy with Dr. Jorge, POD #1 s/p Permcath plac ement with Dr. Miller. Ostomy functioning well. Ok to hold stool softener for now. Patient is afebrile. He reports that his abdominal pain is improved. He is tolerating full liquid- will try low fiber diet and see how he tolerates. Plan is to discharge patient to rehab facility ([facility]?). Patient seen and examined with Dr. Rodriguez. 09/16/2022 Seen in HD unit, pt underwent permcath placement today w/ vascular WBC 6.5, Hbg 8.1. vitals stable On fulls, may continue to adv to low fiber as tolerates Ostomy functioning Midline wound w/ alessia and nu-gauze wick packing to inferior and superior poles Abx for total of 2 weeks recommended, may do po Dispo planning per medicine when accepted to facility Admission and Anticipated Discharge Date Admission Date: September 05, 2022 Subjective Patient resting in bed. Has some belly pain, but is manageable and not worsening. No nausea/vomiting. Underwent permacath placement wtih Dr. Miller yesterday. Patient was tentatively accepted to [facility], but due to to permacath placement yesterday, transfer has been delayed. Physical Exam Respiratory: normal respiratory effort Gastrointestinal (Abdomen): Inspection/Auscultation: + abdominal surgical incision (midline c/d/i, surgical alessia intact w/ nu-gauze ivelisse. ); abdomen not distended Percussion/Palpation: abdomen soft; abdomen nontender ostomy viable and functioning Results & Data Vital Signs (Past 12 Hours) Vital Signs Temp Pulse Pulse Resp BP Pulse Ox O2 Del Method 09/17/22 10:51 36.4 C L 88 16 96/61 L 98 Room Air 09/17/22 07:59 75 09/17/22 07:52 36.5 C 91 H 18 129/81 97 Room Air 09/17/22 03:00 36.4 C L 82 18 116/71 96 Room Air PG Care Time/CCT Total # of Minutes Spent Total Time Spent with Patient: Total time spent is greater than 50% in coordination of care (as documented) at patient's floor/unit and/or counseling patient: Coding Level of Care Code 66478 Post Operative Follow-Up Diagnoses Status post exploratory laparotomy Z98.890
--- NOTE | 2022-09-17 16:51 | Hospitalist Progress Note ---
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 CT revealed a large amount of liquid stool, stool ball and stercoral proctitis. He was managed for the following: At presentation: Sepsis associated hypotension, Stercoral colitis, constipation likely due to chronic opiate therapy Later on developed: Bowel obstruction status post exploratory laparotomy, peritonitis Presented 09/05/2022 with abdominal pain, constipation, low BP. BP improved with fluid bolus in the ED. Of note, patient reports he has low normal blood pressure in general due to his dialysis. Admitting CTAP:CT A/P on 09/05/22 showedModerate to large amount of liquid stool seen throughout the colon including a 9 x 8 cm rectal stool ball, Mild rectal wall thickening for the degree of distention is again noted. There is also mild perirectal edema. This could represent a stercoral proctitis. A few scattered foci of pneumoperitoneum seen within the upper abdomen which is likely due to the patient's peritoneal dialysis catheter. This has improved in the interval. No evidence for a small bowel obstruction. Patient was started on empirical antibiotics on admission, stopped 09/07/2022 after 48-hour of empirical therapy. Infectious workup on admission was negative. Patient was started on aggressive bowel regimen. Despite watery diarrhea, he continued to have pain and serial imaging showed persistent stool ball/rectal obstruction Repeat CT A/P on 09/08/22 noted no significant change in large stool ball within rectum, mild rectal wall thickening slightly increased, stool throughout colon, fluid filled mildly dilated small bowel without transition suggestive of ileus Repeat CT A/P 09/09/22 noted no significant change in pneumoperitoneum, inc rease in small bowel dilatation suggesting ileus or partial SBO, large stool in rectum Initial peritoneal fluid analysis on admission was negative for infection. Repeat peritoneal fluid analysis on 09/09/22 showed increased WBC 2500 Likely due to bacterial translocation in setting of bowel obstruction. Pre and intra op Peritoneal fluid culture from 09/09/22 grew pseudomonas aeruginosa Patient developed Small bowel obstruction as well on 09/09/22----->>>Had exploratory laparotomy for bowel obstruction, sigmoid colostomy creation and removal of PD catheter by Dr Jorge on 09/09/22. Continue IV ceftazidime 09/13 for sepsis due to abdominal peritonitis. Per [facility] ID (Dr Gonzalez) (reached out to by pharmacist), recs is 21 day atb therapy, iv while inpatient then PO levaquin on dc to complete the course. When started, do levaquin 750 mg po x 1 f/b 500 mg q48h. QTc monitoring weekly while on levaquin. Diet advanced per Sx. Acute on chronic anemia on the background of anemia of renal disease: Complicated by recent abdominal surgery. Hemoglobin below 7 on 09/14, status post 2 unit PRBC. Follow-up H&H daily or as needed. Monitor Hb. Transfuse prn to keep Hb>7 ESRD (end stage renal disease) on dialysis: Patient was on peritoneal dialysis 4x per day prior to admission s/p permcath placement 09/17 On HD, Nephro on board. Other chronic medical conditions: Continue with home meds as and when able. Type 2 diabetes, diet controlled: Previously on metformin, now diet controlled Had hypoglycemic episodes due poor intake at this time with recent ex lap/colostomy With improving oral intake, stop IVF D5 saline Monitor blood glucose. Hypoglycemic protocol Stroke: Completed 21 days of DAPT, Hold ASA for now in view of small surgical site bleeding HLD, HTN: Continue with home meds. Metoprolol (for high BP ) on hold d/t low BP. Gout: Was on allopurinol Lumbar stenosis with neurogenic claudication DVT prophylaxis: Hep sq Likely dc farhana to [facility] Admission and Anticipated Discharge Date Admission Date: September 05, 2022 Subjective Patient seen and examined at bedside as a follow-up of sepsis, peritonitis, constipation due to opioid therapy, bowel obstruction, status post exploratory laparotomy. Patient was lying in bed, on room air, reports no new acute event overnight. Patient s/p perm cath placement 09/16. Patient reports belly pain under control, doesn't appear in distress. Patient denies fever or chills or chest pain. Physical Exam Physical Exam: GENERAL: Alert and oriented x3. NAD, on RA. Appears motivated. HEENT: No pallor, no icterus. Pupils equal, round and reactive to light. Oral mucosa moist. Right IJ temporary HD catheter removed. NECK: No JVD, no neck masses. HEART: S1 and S2 heard. Regular rate and rhythm. No murmur, no gallop. RESPIRATORY SYSTEM: Normal AP diameter. No accessory muscle use. No wheezing, no crackles. ABDOMEN: Soft, bowel sounds present, nontender, no distention. Surgical dressing C/D/I. Colostomy in situ. CENTRAL NERVOUS SYSTEM: No facial droop. Speech is clear. Obeys simple commands. Moves extremities. EXTREMITIES: No edema, no erythema seen. Urinary catheter in situ with gadiel urine collection noted. Results & Data Results & Data Vital Signs (Past 12 Hours) Vital Signs Temp Pulse Pulse Resp BP Pulse Ox O2 Del Method 09/17/22 15:44 37.0 C 76 18 106/59 L 97 Room Air 09/17/22 15:11 83 09/17/22 10:51 36.4 C L 88 16 96/61 L 98 Room Air 09/17/22 07:59 75 09/17/22 07:52 36.5 C 91 H 18 129/81 97 Room Air
[2022-09-17] MEDS: LATANOPROST 0.005% OP SOLN 2.5 ML BTL OPB SCH (20:51)
[2022-09-17] MEDS: HEPARIN SOD 5,000 UNIT/0.5 ML VIAL SQ SCH (21:30)
[2022-09-18 06:25] LABS: Hematocrit (blood only) 24.8 % (42.0-52.0); Hemoglobin 8.3 g/dl (14.0-18.0)
[2022-09-18 06:41] LABS: Magnesium 1.8 mg/dl (1.7-2.4); Phosphorus 2.9 mg/dl (2.5-4.9)
[2022-09-18] MEDS: INSULIN ASPART PER UNIT CHARGE SC SCH ×2 (08:03→11:30)
[2022-09-18] MEDS: HEPARIN SOD 5,000 UNIT/0.5 ML VIAL SQ SCH (08:03)
[2022-09-18] MEDS: SENNOSIDES 8.8 MG/5 ML UDC PO SCH (08:04)
[2022-09-18] MEDS: TORSEMIDE 100 MG TAB PO SCH (08:04)
--- NOTE | 2022-09-18 11:57 | Surgery Progress Note ---
I saw and examined this patient with the surgical PA. I agree with this plan. Date of Service September 18, 2022 Assessment & Plan (1) Status post exploratory laparotomy: Plan: 09/18/2022 POD #9 s/p Ex Lap, Sigmoid Colostomy with Dr. Jorge, POD #2 s/p Permcath placement with Dr. Miller. Ostomy functioning well. Abdominal incision is healing well with no signs of infection. Patient is doing well and is tolerating low fiber diet. Plan is for discharge to [facility] today. Patient seen and examined with Dr. Rodriguez. 09/17/2022 POD #8 s/p Ex Lap, Sigmoid Colostomy with Dr. Jorge, POD #1 s/p Permcath placement with Dr. Miller. Ostomy functioning well. Ok to hold stool softener for now. Patient is afebrile. He reports that his abdominal pain is improved. He is tolerating full liquid- will try low fiber diet and see how he tolerates. Plan is to discharge patient to rehab facility ([facility]?). Patient seen and examined with Dr. Rodriguez. 09/16/2022 Seen in HD unit, pt underwent permcath placement today w/ vascular WBC 6.5, Hbg 8.1. vitals stable On fulls, may continue to adv to low fiber as tolerates Ostomy functioning Midline wound w/ alessia and nu-gauze wick packing to inferior and superior poles Abx for total of 2 weeks recommended, may do po Dispo planning per medicine when accepted to facility Admission and Anticipated Discharge Date Admission Date: September 05, 2022 Subjective Mr. Cason is laying in bed, reports that he is doing well today. He is tolerating a low fiber diet. He denies nausea or vomiting. Physical Exam Respiratory: normal respiratory effort Gastrointestinal (Abdomen): Inspection/Auscultation: + abdominal surgical incision (midline c/d/i, surgical alessia intact w/ nu-gauze ivelisse. ); abdomen not distended Percussion/Palpation: abdomen soft; abdomen nontender Gauze ivelisse removed today at bedside- some bleeding occurred from both superior and inferior aspect of incision. Bleeding stopped with pressure and Vaseline gauze was placed over incision with 4 x 4 s and medipore tape. [place] still in place. Results & Data Vital Signs (Past 12 Hours) Vital Signs Temp Pulse Pulse Pulse Pulse Pulse Resp 09/18/22 11:35 36.6 C 88 18 09/18/22 11:05 36.7 C 74 81 68 71 16 09/18/22 09:09 09/18/22 08:38 76 09/18/22 07:06 36.7 C 74 16 09/18/22 03:00 36.6 C 78 21 BP BP Pulse Ox O2 Del Method 09/18/22 11:35 112/67 96 Room Air 09/18/22 11:05 112/66 112/53 L 99 09/18/22 09:09 Room Air 09/18/22 08:38 09/18/22 07:06 112/66 99 Room Air 09/18/22 03:00 107/68 97 Room Air PG Care Time/CCT Total # of Minutes Spent Total Time Spent with Patient: Total time spent is greater than 50% in coordination of care (as documented) at patient's floor/unit and/or counseling patient: Coding Level of Care Code 48563 Post Operative Follow-Up Diagnoses Status post exploratory laparotomy Z98.890
== END 2022-09-18 16:16 | DRG 853 ==
LOC: ED 10:46 → 2W 13:57 → SUATTDRO 13:57 → 2W 16:33 → 1E 09-09 20:25 → 2S 09-11 11:59 → 2E 09-11 15:26

== ENCOUNTER 2023-03-27 11:38 | Inpatient (IN) ==
[2023-03-27] MEDS ORDERED: MoRPHine SULFATE 4 MG/ML 1 ML CARP\\VIAL IV STA (11:48)
[2023-03-27] MEDS ORDERED: ONDANSETRON INJ 2 MG/ML 2 ML VIAL IV STA (11:48)
--- NOTE | 2023-03-27 11:48 | Emergency Department Note ---
Impression & Plan Closed hip fracture ADMIT ED Provider Note HPI: History obtained from patient. The patient is a 77-year-old gentleman with history of end-stage renal disease, on dialysis, presents emergency department with chief complaint of left lower extremity pain after mechanical fall. Patient states that he was in his house when he believes he tripped over a loose shoe. Patient states he fell onto his left side and has acute pain in the area of his left hip and thigh area. Patient presents the emergency department with his left lower extremity slightly shortened and internally rotated. Patient denies hitting his head, denies any loss of consciousness. ROS: - Per HPI Differential Diagnosis: Hip fracture, hip dislocation, knee fracture, knee dislocation, amongst other potential pathologies. *Outpatient medications and allergy history reviewed. PE: General: Alert, frail-appearing, no acute distress HEENT: Normocephalic, trachea midline Eyes: Extraocular eye movement is intact, no scleral erythema Pulmonary: Clear to auscultation bilaterally, no wheezing Cardio: Regular rate and rhythm GI: Abdomen is soft to palpation : No suprapubic tenderness MSK: The left lower extremity is held in external rotation and slightly shortened with flexion at the knee secondary to pain at the left hip, there is a palpable dorsalis pedis pulse in the left lower extremity, motor and sensory function is intact distally in the left foot, there is some prominence of the medial aspect of the left knee, patella appears to be midline without obvious dislocation Skin: No evidence of rash, dialysis catheter to the right upper chest without surrounding erythema Neuro: Alert, no focal deficits Psychiatric: Cooperative INDEPENDENT INTERPRETATIONS: residential monitor: (As interpreted by myself): - An order was placed for continuous cardiac monitoring - Patient was noted to be in sinus rhythm with a rate of 65 EKG: (As interpreted by myself): Rate: 59 Rhythm: Sinus rhythm Intervals: Within normal limits ST changes: No ST elevation Time: 1355 Interventions provided in ED: -IV morphine, IV Zofran Medical Decision Making: Shortly after the patient arrived IV was established and lab work obtained, patient was given IV morphine and IV Zofran here in the ED for his pain. X-ray imaging confirms evidence of left-sided hip fracture. X-ray imaging of the left knee does not show any obvious evidence of fracture or dislocation. Lab work shows no leukocytosis, hemoglobin is stable at 11.0, platelet count is normal, CMP does not show any critical findings, does show baseline chronic kidney disease/end-stage renal disease. Patient states he has an established relationship with [facility] therefore routine consultation was placed for the patient's orthopedist, Dr. Eng. [facility] office was notified about the routine consultation by the ED racing secretary. I discussed the patient's presentation with the admitting hospitalist for [facility] and the patient was placed for admission in stable condition. Consultants/Discussions held with other healthcare providers: -Hospitalist service, Anne-Marie Brito PA-C Disposition discussion held by myself with: -Patient Diagnosis: 1. Left-sided hip fracture, acute, closed 2. Mechanical fall, acute 3. 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 Hx of prostatectomy robotic assisted retropubic 2012 Hx of colonoscopy History of lumbar fusion Family History Mother , at 88 Stroke Father , in 60s Heart disease Social History Smoking Status: Never smoker Tobacco Type: Smokeless Tobacco (Dip or Chew) Second Hand Exposure: No; Do You Dip or Chew Tobacco: Yes (1 can/3 days; advised); Hx Alcohol Use: Yes (hx-not anymore) Hx Substance Use: No Preferred Language: Georgian Communication Ability: Effective Visual Impairment: No Limitations Hearing Ability: Hard of Hearing 3D Specialist Required: No Beliefs That Will Affect Care: None marital status: Current Living Situation: Spouse Feels Safe at Home: Yes Assistive Devices: Cane, Glasses, Hearing Aid - Bilateral and Walker Allergies Allergies Allergy/AdvReac Type Severity Reaction Status Date / Time No Known Allergies Allergy Verified 03/27/23 13:20 Home Meds Home Medications Medication Instructions Recorded Confirmed latanoprost 0.005 % eye drops 1 drp OPB HS 03/23/21 03/27/23 (Xalatan) torsemide 100 mg tablet 100 mg PO QAM 05/26/22 03/27/23 metoprolol succinate 25 mg 12.5 mg PO QAM 09/03/22 03/27/23 tablet,extended release 24 hr tramadol 50 mg tablet 50 - 100 mg PO Q6H PRN Pain 09/03/22 03/27/23 vitamin B complex-vitamin C-folic 1 tab PO QPM 09/05/22 03/27/23 acid 0.8 mg tablet (Belinda-Moose) sennosides 8.8 mg/5 mL oral syrup 5 ml PO BID PRN Constipation 01/02/23 03/27/23 (senna) sevelamer carbonate 800 mg tablet 800 mg PO UD 01/02/23 03/27/23 (Renvela) omeprazole 40 mg capsule,delayed 40 mg PO QAM 03/27/23 03/27/23 release Results & Data (ED) Vital Signs Vital Signs - 24 hr 03/27/23 11:47 03/27/23 11:47 03/27/23 12:01 Temperature 36.8 C Temperature Source Oral Pulse Rate 62 62 62 Pulse Rhythm Regular Respiratory Rate 20 20 Respiratory Effort / Characteristics Non-Labored Spontaneous Respiratory Depth Normal Blood Pressure 122/72 Blood Pressure Mean 88 Pulse Oximetry 99 97 Oxygen Delivery Method Room Air Room Air Sepsis Recent Fever Within 48 Hours No Sepsis New/Unexplained Change in Mental Status N/A Sepsis Action Taken by Nursing No Action Required Laboratory Data 03/27/23 11:50 03/27/23 11:50 Lab Results 03/27/23 Range/Units 11:50 WBC 8.38 (4.8-10.8) K/ul RBC 3.37 L (4.70-6.10) M/uL Hgb 11.0 L (14.0-18.0) g/dl Hct 34.2 L (42.0-52.0) % MCV 101.5 H (80.0-100.0) fL MCH 32.6 (25.0-34.0) pg MCHC 32.2 (32.0-36.0) g/dL RDW Std Deviation 61.1 H (36.4-46.3) fL RDW Coeff of Bayron 16.3 H (11.5-14.5) % Plt Count 256 (130-400) K/uL MPV 9.3 L (9.4-12.4) fL Immature Gran % (Auto) 0.4 % Neut % (Auto) 76.4 % Lymph % (Auto) 9.9 % Potter % (Auto) 7.3 % Eos % (Auto) 5.0 % Baso % (Auto) 1.0 % Neut # (Auto) 6.41 (1.40-6.50) K/uL Lymph # (Auto) 0.83 L (1.20-3.40) K/uL Potter # (Auto) 0.61 H (0.11-0.59) K/uL Eos # (Auto) 0.42 (0.00-0.50) K/uL Baso # (Auto) 0.08 (0.00-0.20) K/uL Immature Gran # (Auto) 0.03 (0.01-0.20) K/uL PT 10.8 (9.0-12.0) Seconds INR 1.0 (0.9-1.1) Sodium 137 (136-145) mmol/L Potassium 4.5 (3.5-5.1) mmol/L Chloride 97 L (98-107) mmol/L Carbon Dioxide 32 (21-32) mmol/L Anion Gap 8 (3-11) BUN 26 H (6-23) mg/dl Creatinine 3.14 H (0.6-1.4) mg/dl Est Cr Clr Drug Dosing 18.1 ml/min Est GFR ( Amer) 21.2 ml/min Est GFR (Non-Af Amer) 18.2 ml/min BUN/Creatinine Ratio 8.3 L (10-20) Glucose 77 (70-99(Fasting)) mg/dl Calcium 9.6 (8.6-10.3) mg/dl Total Bilirubin 0.4 (0.2-1.0) mg/dl AST 31 (13-39) U/L ALT 11 (7-52) U/L Alkaline Phosphatase 57 (34-104) U/L Total Protein 7.5 (6.0-8.3) gm/dl Albumin 4.1 (3.4-5.0) gm/dl Globulin 3.4 (2.5-4.0) gm/dl Albumin/Globulin Ratio 1.2 (0.9-2) Administered Medications Discontinued Medications Morphine Sulfate (Morphine Sulfate 4 Mg/Ml 1 Ml Carp\Vial) 4 mg IV NOW STA Stop: 03/27/23 11:49 Last Admin: 03/27/23 12:03 Dose: 4 mg Documented By: ANA M Ondansetron HCl (Ondansetron Inj 2 Mg/Ml 2 Ml Vial) 4 mg IV NOW STA Stop: 03/27/23 11:49 Last Admin: 03/27/23 12:03 Dose: 4 mg Documented By: ANA M Imaging Data Radiologist's Impression: Chest X-Ray 03/27/23 00:00 XR chest 1V not portable HISTORY: 77 years-old Male LEFT HIP FAX acute chest trauma COMPARISON: 12/02/2022 TECHNIQUE: AP view of the chest FINDINGS: The patient is rotated towards the left. Cardiac silhouette is enlarged. Pulmonary vascular congestion with interstitial coarsening. Atherosclerosis of the aorta. Right IJ dual-lumen hemodialysis catheter distal tip projection in the right atrium. No pneumothorax. Trace pleural effusion suggested with mild bibasilar densities, likely atelectatic. Degenerative changes of the shoulders and spine. IMPRESSION: 1. Cardiomegaly with pulmonary vascular congestion. 2. Probable trace pleural effusions. 3. No acute posttraumatic abnormality of the chest identified. ACT 112: Negative or not required by law. The above report was generated using voice recognition software. It may contain grammatical, syntax or spelling errors. Electronically signed by: Velasquez Reveles M.D. 03/27/2023 12:43 PM Hip X-Ray 03/27/23 11:45 XR hip LT min 2V, XR femur LT 1V CLINICAL HISTORY: fall TECHNIQUE: 2 views of the left hip and one view of the left femur were obtained. Comparison: None available at the time of this dictation. FINDINGS: Intratrochanteric fracture of the femur is seen with minimal displacement. Hip joint is probably degenerative in appearance. Soft tissue swelling is seen. IMPRESSION: Intertrochanteric fracture of the femur with associated soft tissue swelling. ACT 112: Negative or not required by law. Electronically signed by: Ren Thompson M.D. 03/27/2023 12:47 PM Knee X-Ray 03/27/23 11:45 XR knee LT 1 or 2V routine HISTORY: 77 years-old Male fall acute left knee pain status post fall COMPARISON: Left hip and femur radiographs of same day TECHNIQUE: 2 views of the left knee FINDINGS: Limited study secondary to positioning. Arterial calcifications. Demineralized appearance of the bones. No definite acute fracture or dislocation identified. IMPRESSION: Limited exam secondary to positioning. No acute fracture or dislocation identified on the suboptimal images submitted. ACT 112: Negative or not required by law. The above report was generated using voice recognition software. It may contain grammatical, syntax or spelling errors. Electronically signed by: Velasquez Reveles M.D. 03/27/2023 12:42 PM Femur X-Ray 03/27/23 11:48 XR hip LT min 2V, XR femur LT 1V CLINICAL HISTORY: fall TECHNIQUE: 2 views of the left hip and one view of the left femur were obtained. Comparison: None available at the time of this dictation. FINDINGS: Intratrochanteric fracture of the femur is seen with minimal displacement. Hip joint is probably degenerative in appearance. Soft tissue swelling is seen. IMPRESSION: Intertrochanteric fracture of the femur with associated soft tissue swelling. ACT 112: Negative or not required by law. Electronically signed by: Ren Thompson M.D. 03/27/2023 12:47 PM Discharge Plan Visit Data Chief Complaint: Fall ED Provider: Adarsh Simeon Discharge Problem: Closed hip fracture Forms Stand Alone Forms: [facility] [email or web address] Prescriptions Prescriptions: No Action latanoprost [Xalatan] 0.005 % drops 1 drp OPB HS tramadol 50 mg tablet 50 - 100 mg PO Q6H PRN (Reason: Pain) Patient Comments: doesn't take very often, maybe only once per day metoprolol succinate 25 mg tablet extended release 24 hr 12.5 mg PO QAM Hold Instructions: Resume on 09/20/22. Was used for HTN, hold until BP improves to high normal. torsemide 100 mg tablet 100 mg PO QAM Belinda-Moose 0.8 mg tablet 1 tab PO QPM sennosides [senna] 8.8 mg/5 mL syrup 5 ml PO BID PRN (Reason: Constipation) sevelamer carbonate [Renvela] 800 mg tablet 800 mg PO UD Patient Comments: usually only takes BID due to only eating 2 meals per day. Rx Instructions: take 1 tablet by mouth TID w/meals omeprazole 40 mg capsule,delayed release(DR/EC) 40 mg PO QAM Referrals Referrals: Barrett Dacosta MD [Primary Care Provider] - Discharge Problem: Closed hip fracture Qualifiers: Encounter type: initial encounter Laterality: left Qualified Code(s): S72.002A - Fracture of unspecified part of neck of left femur, initial encounter for closed fracture
[2023-03-27 12:19] LABS: Basophils # (auto) 0.08 K/uL (0.00-0.20); Eosinophils # (auto) 0.42 K/uL (0.00-0.50); Hematocrit (blood only) 34.2 % (42.0-52.0); Immature Granulocytes # (auto) 0.03 K/uL (0.01-0.20); Immature Granulocytes % (auto) 0.4 %; Lymphocytes # (auto) 0.83 K/uL (1.20-3.40); Lymphocytes % (auto) 9.9 %; Mean Corpuscular Hemoglobin 32.6 pg (25.0-34.0); Mean Corpuscular Hgb Conc 32.2 g/dL (32.0-36.0); Mean Corpuscular Volume 101.5 fL (80.0-100.0); Mean Platelet Volume 9.3 fL (9.4-12.4); Monocytes # (auto) 0.61 K/uL (0.11-0.59); Monocytes % (auto) 7.3 %; Neutrophils # (auto) 6.41 K/uL (1.40-6.50); Neutrophils % (auto) 76.4 %; Platelet Count 256 K/uL (130-400); RDW Coefficient of Variation 16.3 % (11.5-14.5); RDW Standard Deviation 61.1 fL (36.4-46.3); Red Blood Count 3.37 M/uL (4.70-6.10); White Blood Count 8.38 K/ul (4.8-10.8)
[2023-03-27 12:36] LABS: Albumin Globulin Ratio 1.2 (0.9-2); Albumin Level 4.1 gm/dl (3.4-5.0); BUN Creatinine Ratio 8.3 (10-20); Bilirubin,Total 0.4 mg/dl (0.2-1.0); Calcium 9.6 mg/dl (8.6-10.3); Creatinine Clr Calc Pharmacy 18.1 ml/min; Est GFR (African American) 21.2 ml/min; Est GFR (Non-African American) 18.2 ml/min; Globulin 3.4 gm/dl (2.5-4.0); Potassium 4.5 mmol/L (3.5-5.1); Total Protein 7.5 gm/dl (6.0-8.3)
--- NOTE | 2023-03-27 12:43 | XRay Report ---
XR knee LT 1 or 2V routine HISTORY: 77 years-old Male fall acute left knee pain status post fall COMPARISON: Left hip and femur radiographs of same day TECHNIQUE: 2 views of the left knee FINDINGS: Limited study secondary to positioning. Arterial calcifications. Demineralized appearance of the bone s. No definite acute fracture or dislocation identified. IMPRESSION: Limited exam secondary to positioning. No acute fracture or dislocation identified on the suboptimal images submitted. ACT 112: Negative or not required by law. The above report was generated using voice recognition software. It may contain grammatical, syntax o r spelling errors. Electronically signed by: Velasquez Reveles M.D. 03/27/2023 12:42 PM
--- NOTE | 2023-03-27 12:44 | XRay Report ---
XR chest 1V not portable HISTORY: 77 years-old Male LEFT HIP FAX acute chest trauma COMPARISON: 12/02/2022 TECHNIQUE: AP view of the chest FINDINGS: The patient is rotated towards the left. Cardiac silhouette is enlarged. Pulmonary vascular congestio n with interstitial coarsening. Atherosclerosis of the aorta. Right IJ dual-lumen hemodialysis cathet er distal tip projection in the right atrium. No pneumothorax. Trace pleural effusion suggested with mild bibasilar densities, likely atelectatic. Degenerative changes of the shoulders and spine. IMPRESSION: 1. Cardiomegaly with pulmonary vascular congestion. 2. Probable trace pleural effusions. 3. No acute posttraumatic abnormality of the chest identified. ACT 112: Negative or not required by law. The above report was generated using voice recognition software. It may contain grammatical, syntax o r spelling errors. Electronically signed by: Velasquez Reveles M.D. 03/27/2023 12:43 PM
[2023-03-27 12:47] LABS: Prothrombin Time 10.8 Seconds (9.0-12.0)
--- NOTE | 2023-03-27 12:49 | XRay Report ---
XR hip LT min 2V, XR femur LT 1V CLINICAL HISTORY: fall TECHNIQUE: 2 views of the left hip and one view of the left femur were obtained. Comparison: None available at the time of this dictation. FINDINGS: Intratrochanteric fracture of the femur is seen with minimal displacement. Hip joint is probably dege nerative in appearance. Soft tissue swelling is seen. IMPRESSION: Intertrochanteric fracture of the femur with associated soft tissue swelling. ACT 112: Negative or not required by law. Electronically signed by: Ren Thompson M.D. 03/27/2023 12:47 PM
--- NOTE | 2023-03-27 13:47 | History & Physical Report ---
Date of Service March 27, 2023 Assessment & Plan (1) Fall: (2) Closed hip fracture: Plan: This is a 77yo M with a PMH of ESRD on HD, Mobitz type 1 block, DM II, history of stroke with residual L sided weakness, history of esophageal cancer with some dysphagia, h/o bowel obstruction requiring ex lap and colostomy placement in September 2022, h/o grade II diastolic dysfunction on May 2022 echo and other medical problems listed below who presents after a fall at home. Femur XR with intertrochanteric fracture of the femur with associated soft tissue swelling. Comfortable after dose of IV morphine in ED. Will continue with scheduled tylenol, lidocain patch and PRN oxycodone for severe pain [facility] ortho consulted given previous R hip repair by Dr. Marques Anesthesia consulted, pre-op abx given per hip fracture protocol CBC, BMP in am (3) Mobitz type 1 second degree AV block: Plan: Patient has seen Dr. Amezquita and Dr. Lanza in the past for borderline tachy bebo syndrome and had his Lopressor dose decreased to 12.5mg daily without any further issues Denies any palpitations or CP Cardiology consulted for clearance - Dr. Perez feels patient is stable from cardiac perspective w/o s/sx of unstable angina, worsening arrhythmia or unstable CHF. Okay to proceed with estimated low risk of perioperative cardiac complication (4) Stroke: Plan: R MCA CVA in 2022 with some L sided residual weakness Continue atorvastatin (5) Type 2 diabetes, diet controlled: Plan: Diet controlled, most recent a1c 4.9 in 01/26 Initial BSG 77 Continue diabetic diet Add BSG AC HS if AM glucose elevated (6) ESRD (end stage renal disease) on dialysis: Plan: HD MWF, dialyzed this morning, has a RIJ tunneled catheter Continue Renvela, torsemide following OR tomorrow Routine nephro consulted for HD mgmt during admission (7) HTN (hypertension): Plan: Normotensive. Continue Toprol (8) HLD (hyperlipidemia): Plan: Chronic, stable. Continue statin (9) Lumbar stenosis with neurogenic claudication: Plan: Chronic, stable. Continue pain control (will hold home tramadol while receiving oxycodone here). 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 Recently seen by Dr. Roland med onc. Considering role of chemo after rad onc evaluation. Dr. Olivas does not suggest surgical intervention given comobidities Follow up with Dr. Roland in clinic History of Present Illness Chief Complaint: fall Primary Care Provider: Barrett Dacosta MD This is a 77yo M with a PMH of ESRD on HD, Mobitz type 1 block, DM II, history of stroke with residual L sided weakness, history of esophageal cancer with some dysphagia, h/o bowel obstruction requiring ex lap and colostomy placement in September 2022, h/o grade II diastolic dysfunction on May 2022 echo and other medical problems listed below who presents after a fall at home. Was in his basement and tripped over a shoe, falling onto left side. Developed acute pain in area of left hip and thigh after fall. Otherwise denies any acute changes. History of fall in the past with R sided hip fracture s/p surgical repair by Dr. Joshi. Also has history of residual L sided weakness following a stroke and ambulates with a cane at baseline. Denies any F/C, lightheadedness, CP, SOB, N/V, abdominal pain, dysuria, colostomy output at baseline. H/o esophageal cancer with some dysphasia but is comfortable swallowing liquids, soft foods and small pills. Was seen in August by Dr. Lanza for concerns regarding sick sinus syndrome and underwent Ziopatch testing. Does not have a pacemaker. Allergies Allergy/AdvReac Type Severity Reaction Status Date / Time No Known Allergies Allergy Verified 03/27/23 13:20 Home Medications Medication Instructions Recorded Confirmed Type latanoprost 0.005 % eye drops 1 drp OPB HS 03/23/21 03/27/23 History (Xalatan) torsemide 100 mg tablet 100 mg PO QAM 05/26/22 03/27/23 History metoprolol succinate 25 mg 12.5 mg PO QAM 09/03/22 03/27/23 History tablet,extended release 24 hr tramadol 50 mg tablet 50 - 100 mg PO Q6H PRN Pain 09/03/22 03/27/23 History vitamin B complex-vitamin C-folic 1 tab PO QPM 09/05/22 03/27/23 History acid 0.8 mg tablet (Belinda-Moose) sennosides 8.8 mg/5 mL oral syrup 5 ml PO BID PRN Constipation 01/02/23 03/27/23 History (senna) sevelamer carbonate 800 mg tablet 800 mg PO UD 01/02/23 03/27/23 History (Renvela) omeprazole 40 mg capsule,delayed 40 mg PO QAM 03/27/23 03/27/23 History release Past Med/Surg History Medical History Open-angle glaucoma SSS (sick sinus syndrome) History of stroke 05/25/22, f/u [facility] GERD (gastroesophageal reflux disease) Constipation due to opioid therapy Stercoral colitis hx Prostate cancer 2012, sx tx only Type 2 diabetes, diet controlled 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 Hx of prostatectomy robotic assisted retropubic 2013 Hx of colonoscopy History of lumbar fusion Family History Mother , at 88 Stroke Father , in 60s Heart disease Social History Smoking Status: Never smoker Tobacco Type: Smokeless Tobacco (Dip or Chew) Second Hand Exposure: No; Do You Dip or Chew Tobacco: Yes (1 can/3 days; advised); Hx Alcohol Use: Yes (hx-not anymore) Hx Substance Use: No Preferred Language: Occitan Communication Ability: Effective Visual Impairment: No Limitations Hearing Ability: Hard of Hearing Motor Adjuster Required: No Beliefs That Will Affect Care: None marital status: Current Living Situation: Spouse Feels Safe at Home: Yes Assistive Devices: Cane, Glasses, Hearing Aid - Bilateral and Walker Review of Systems Review of Systems: At least ten systems reviewed and negative except as noted in the HPI. Physical Exam Physical Exam: Please see Dr. Ennis's addendum for physical exam. Results & Data Results & Data Vital Signs (Past 12 Hours) Vital Signs Temp Pulse Resp BP Pulse Ox O2 Del Method 03/27/23 12:01 62 03/27/23 11:47 62 20 97 Room Air 03/27/23 11:47 36.8 C 62 20 122/72 99 Room Air Laboratory Results Short CBC 03/27/23 Range/Units 11:50 WBC 8.38 (4.8-10.8) K/ul Hgb 11.0 L (14.0-18.0) g/dl Hct 34.2 L (42.0-52.0) % Plt Count 256 (130-400) K/uL BMP 03/27/23 11:50 Sodium 137 Potassium 4.5 Chloride 97 L Carbon Dioxide 32 BUN 26 H Creatinine 3.14 H Glucose 77 Calcium 9.6 Liver Function 03/27/23 Range/Units 11:50 Total Bilirubin 0.4 (0.2-1.0) mg/dl AST 31 (13-39) U/L ALT 11 (7-52) U/L Alkaline Phosphatase 57 (34-104) U/L Albumin 4.1 (3.4-5.0) gm/dl Diagnostic Findings Chest X-Ray 03/27/23 00:00 XR chest 1V not portable HISTORY: 77 years-old Male LEFT HIP FAX acute chest trauma COMPARISON: 12/02/2022 TECHNIQUE: AP view of the chest FINDINGS: The patient is rotated towards the left. Cardiac silhouette is enlarged. Pulmonary vascular congestion with interstitial coarsening. Atherosclerosis of the aorta. Right IJ dual-lumen hemodialysis catheter distal tip projection in the right atrium. No pneumothorax. Trace pleural effusion suggested with mild bibasilar densities, likely atelectatic. Degenerative changes of the shoulders and spine. IMPRESSION: 1. Cardiomegaly with pulmonary vascular congestion. 2. Probable trace pleural effusions. 3. No acute posttraumatic abnormality of the chest identified. ACT 112: Negative or not required by law. The above report was generated using voice recognition software. It may contain grammatical, syntax or spelling errors. Electronically signed by: Velasquez Reveles M.D. 03/27/2023 12:43 PM Hip X-Ray 03/27/23 11:45 XR hip LT min 2V, XR femur LT 1V CLINICAL HISTORY: fall TECHNIQUE: 2 views of the left hip and one view of the left femur were obtained. Comparison: None available at the time of this dictation. FINDINGS: Intratrochanteric fracture of the femur is seen with minimal displacement. Hip joint is probably degenerative in appearance. Soft tissue swelling is seen. IMPRESSION: Intertrochanteric fracture of the femur with associated soft tissue swelling. ACT 112: Negative or not required by law. Electronically signed by: Ren Thompson M.D. 03/27/2023 12:47 PM Knee X-Ray 03/27/23 11:45 XR knee LT 1 or 2V routine HISTORY: 77 years-old Male fall acute left knee pain status post fall COMPARISON: Left hip and femur radiographs of same day TECHNIQUE: 2 views of the left knee FINDINGS: Limited study secondary to positioning. Arterial calcifications. Demineralized appearance of the bones. No definite acute fracture or dislocation identified. IMPRESSION: Limited exam secondary to positioning. No acute fracture or dislocation identified on the suboptimal images submitted. ACT 112: Negative or not required by law. The above report was generated using voice recognition software. It may contain grammatical, syntax or spelling errors. Electronically signed by: Velasquez Reveles M.D. 03/27/2023 12:42 PM Femur X-Ray 03/27/23 11:48 XR hip LT min 2V, XR femur LT 1V CLINICAL HISTORY: fall TECHNIQUE: 2 views of the left hip and one view of the left femur were obtained. Comparison: None available at the time of this dictation. FINDINGS: Intratrochanteric fracture of the femur is seen with minimal displacement. Hip joint is probably degenerative in appearance. Soft tissue swelling is seen. IMPRESSION: Intertrochanteric fracture of the femur with associated soft tissue swelling. ACT 112: Negative or not required by law. Electronically signed by: Ren Thompson M.D. 03/27/2023 12:[address] 03/27/23 13:11 CT knee LT wo con HISTORY: 77 years-old Male Fall acute left knee pain status post fall COMPARISON: Left knee radiographs 03/27/2023 TECHNIQUE: Multiple axial CT images of the left knee were obtained without the use of IV contrast. A dose lowering technique was used consistent with the principals of BENIGNO. FINDINGS: Limited exam secondary to positioning. The mineralized appearance of the bones. Chondrocalcinosis with tricompartmental osteoarthritis, mild to moderate the patellofemoral joint and mild within the medial and lateral compartments. No acute fracture or dislocation identified. Trace joint effusion with suprapatellar synovial calcifications. Arterial calcifications are also noted. 3.4 x 1.8 x 4.0 cm mildly complex Newby's cyst. Tendons and ligaments are not well evaluated by CT technique. IMPRESSION: No acute fracture or dislocation. ACT 112: Negative or not required by law. The above report was generated using voice recognition software. It may contain grammatical, syntax or spelling errors. Electronically signed by: Velasquez Reveles M.D. 03/27/2023 3:24 PM ECG Additional Comments: EKG reviewed with sinus bradycardia at 59 bpm, no acute ST changes Supervising Physician Co-Signing Physician Notes History and physical exam performed by me 77 year old man with history of ESRD on HD, SSS, DM II, stroke, history of esophageal cancer with some dysphagia, bowel obstruction requiring ex lap and colostomy placement in September who presents after a fall. Reported he was in his basement and slipped and fell on his left side. Denied head trauma or LOC. Denied chest pain, palpitation. Reports he uses a cane. Had some mild left sided deficits after his stroke. Reports dysphagia especially to pills. On exam, General: Elderly man in no acute distress Eyes: PERRL, conjunctivae normal, not pale, anicteric sclerae, EOM intact bilaterally ENMT: External ear and nose normal, oropharynx normal Neck: Normal visual inspection, no tracheal deviation, no swelling noted Respiratory: Normal respiratory effort, no respiratory distress, lungs clear to auscultation, no crackles and no wheezes Cardiovascular: RRR S1 S2 Chest (Breasts): Right anterior chest wall HD catheter Gastrointestinal (Abdomen): Abdomen is not distended, soft, non-tender to palpation, no guarding, no palpable hepatosplenomegaly, normal bowel sounds, +colostomy Musculoskeletal: LLE abducted and externally rotated Neurologic: Alert and oriented x 3, No focal weakness, sensation grossly intact Labs notable for Hb of 11, Cr 3.14 Hip XRs show left femoral intertrochanteric fracture. Mechanical fall Left femoral fracture Pain control Ortho consult Reviewed outpatient [facility] records including [facility] and EP note. Will get Cardiology input for preop eval prior to surgery Keep NPO PMN Reported he had HD today. Nephro c/s for HD. Gets HD MWF Aspiration precautions. Soft easy to chew diet. Crush meds/liquid meds if possible I spent a total of 50 minutes coordinating, documenting and providing care for this patient excluding time spent in performance of separately billed services (2) Closed hip fracture Encounter type: initial encounter Laterality: left Qualified Code(s): S72.002A - Fracture of unspecified part of neck of left femur, initial encounter for closed fracture
[2023-03-27] MEDS ORDERED: LIDOCAINE 5% 1 PATCH TD STA (14:27)
--- NOTE | 2023-03-27 14:43 | Orthopedic Consultation ---
Date of Consultation March 27, 2023 Assessment & Plan (1) Closed hip fracture: Discussed and reviewed imaging and findings with patient and . He has a intratrochanteric fracture of the left hip with min displacement. We discussed conservative versus surgical intervention. Risk were discussed as well as benefits. Risk and complications were explained to the patient and include but are not limited to infection, pain, bleeding, scarring, nerve and blood vessel damage, wound problems, weakness, stiffness, incomplete relief of symptoms, tendon ligament injury, hardware failure, fracture, nonunion, malunion, blood clots, embolisms, heart attack, stroke and . Written consent was obtained today and signed by patient's , PUSHPA. Patient has been n.p.o. and is not on any anticoagulation. Patient had dialysis this morning. Once medically cleared by cardiology it is anticipated that patient will be taken to the OR for anopen reduction internal fixation of the left hip with [facility] orthopedic surgeon. There is an order for patient to be n.p.o. at midnight. Patient has been typed and screened. Will order antibiotic for preop. All questions were answered to patient and satisfaction.Time spent with patient and 30 minutes total. Patient seen and evaluated. For further details refer to Juliet's dictation. He fell at home. Injured left hip. Previous right hip fracture repair several months ago. He is not on a blood thinner. He has an extensive past medical history including bowel obstruction and colostomy. Stroke heart disease diabetes and end-stage renal disease on dialysis. His labs and radiographs are reviewed. He has an apparent three-part left hip intertrochanteric fracture. Left DP pulse not palpable PT pulse 1+ sensation intact. The left lower extremity shows shortening and external rotation with flexion at the knee and hip. Otherwise nontender except for the left hip area which I marked with my initials after confirming the operative site with him. He has 5 to 5- out of 5 ankle and toe plantarflexion dorsiflexion inversion and eversion strength. Plan is hold anticoagulation. N.p.o. after midnight. Trochanteric femoral nailing tomorrow. I went over him the generalities of risks benefits rehab and recovery and he elected to proceed with surgical intervention. We resigned the consent form which was witnessed. No history of MRSA staph infections bleeding or blood clots or metal allergies. Present on Admission?: Yes History of Present Illness Reason for Consultation: Left hip fracture History of Present Illness Patient is a 77-year-old male who was seen at bedside in the ER. We were asked to consult on patient due to a left hip fracture. He is seen bedside with his present and with Bebe Graham PA-C. Patient explains that he and his just returned home from dialysis when he went downstairs into the basement to build a fire. He states he must of slipped out of his shoe and he fell onto the left side. He was unable to get up and patient was then transported to the ER via ambulance. He explains that he is unable to weight-bear on that leg and he has pain if he attempts to move the leg or wiggle the toes. He is complaining of left knee pain as well. He denies any paresthesia. He does have a history of weakness of that left lower extremity due to a history of CVA and this resulted in deficit of the left sided weakness. He denies any loss of consciousness or hitting his head. He denies any open areas. He typically utilizes a cane. He does have a history of end-stage renal disease requiring dialysis Monday and Fridays. 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 He was seen previously in November where he had a right hemiarthroplasty done by Dr. Prakash logan and has recovered fully from this. He is interested in surgical intervention.He states his last time that he ate or drink anything was last night.He has been n.p.o. since last night. Allergies Allergy/AdvReac Type Severity Reaction Status Date / Time No Known Allergies Allergy Verified 03/27/23 13:20 Home Medications Medication Instructions Recorded Confirmed Type latanoprost 0.005 % eye drops 1 drp OPB HS 03/23/21 03/27/23 History (Xalatan) torsemide 100 mg tablet 100 mg PO QAM 05/26/22 03/27/23 History metoprolol succinate 25 mg 12.5 mg PO QAM 09/03/22 03/27/23 History tablet,extended release 24 hr tramadol 50 mg tablet 50 - 100 mg PO Q6H PRN Pain 09/03/22 03/27/23 History vitamin B complex-vitamin C-folic 1 tab PO QPM 09/05/22 03/27/23 History acid 0.8 mg tablet (Belinda-Moose) sennosides 8.8 mg/5 mL oral syrup 5 ml PO BID PRN Constipation 01/02/23 03/27/23 History (senna) sevelamer carbonate 800 mg tablet 800 mg PO UD 01/02/23 03/27/23 History (Renvela) omeprazole 40 mg capsule,delayed 40 mg PO QAM 03/27/23 03/27/23 History release Patient History Medical History Open-angle glaucoma SSS (sick sinus syndrome) History of stroke 05/25/22, f/u [facility] GERD (gastroesophageal reflux disease) Constipation due to opioid therapy Stercoral colitis hx Prostate cancer 2012, sx tx only Type 2 diabetes, diet controlled 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 Hx of prostatectomy robotic assisted retropubic 2012 Hx of colonoscopy History of lumbar fusion Family History Mother , at 88 Stroke Father , in 60s Heart disease Social History Smoking Status: Never smoker Tobacco Type: Smokeless Tobacco (Dip or Chew) Second Hand Exposure: No; Do You Dip or Chew Tobacco: Yes (1 can/3 days; advised); Hx Alcohol Use: No Hx Substance Use: No Preferred Language: Ukrainian Communication Ability: Effective Visual Impairment: No Limitations Hearing Ability: Hard of Hearing Retail Merchandising Specialist Required: No Beliefs That Will Affect Care: None marital status: Current Living Situation: Spouse Other Information That Helps Us Care for You: No Feels Safe at Home: Yes Safety Concerns: Feels Safe At This Time Assistive Devices: Cane, Glasses and Walker Review of Systems Constitutional: as per Subjective / HPI Physical Exam Physical Exam: General: Patient is alert and oriented answering questions appropriately. No acute distress. Cardio: Normal sinus rhythm no murmurs appreciated Lungs: Normal breath sounds negative for any wheeze and rhonchi Integumentary: Skin is normal in color and temperature negative for any abrasions or ecchymosis Musculoskeletal: Left lower extremity knee is flexed hip is externally rotated and shortened compared to the right. Negative for any edema or ecchymosis. Knee shows no effusion.Superficial abrasion scabbed appears old. Left lower extremity has no edema. There is palpable tenderness over the left groin. Palpable pulses DP 1+ bilaterally. Sensation is intact over bilateral lower extremities. Negative for any tenderness over the left shoulder or elbow or wrist. There is a healed scar over the distal forearm on the left upper extremity which is consistent with a history of a fistula. Results & Data Vital Signs (Past 12 Hours) Vital Signs Temp Pulse Pulse Resp BP BP Pulse Ox 03/27/23 14:16 61 18 127/83 95 03/27/23 12:01 62 03/27/23 11:47 62 20 97 03/27/23 11:47 36.8 C 62 20 122/72 99 O2 Del Method 03/27/23 14:16 Room Air 03/27/23 12:01 03/27/23 11:47 Room Air 03/27/23 11:47 Room Air Laboratory Results 03/27/23 Range/Units 11:50 WBC 8.38 (4.8-10.8) K/ul RBC 3.37 L (4.70-6.10) M/uL Hgb 11.0 L (14.0-18.0) g/dl Hct 34.2 L (42.0-52.0) % MCV 101.5 H (80.0-100.0) fL MCH 32.6 (25.0-34.0) pg MCHC 32.2 (32.0-36.0) g/dL RDW Std Deviation 61.1 H (36.4-46.3) fL RDW Coeff of Bayron 16.3 H (11.5-14.5) % Plt Count 256 (130-400) K/uL MPV 9.3 L (9.4-12.4) fL Immature Gran % (Auto) 0.4 % Neut % (Auto) 76.4 % Lymph % (Auto) 9.9 % [place] % (Auto) 7.3 % Eos % (Auto) 5.0 % Baso % (Auto) 1.0 % Neut # (Auto) 6.41 (1.40-6.50) K/uL Lymph # (Auto) 0.83 L (1.20-3.40) K/uL [place] # (Auto) 0.61 H (0.11-0.59) K/uL Eos # (Auto) 0.42 (0.00-0.50) K/uL Baso # (Auto) 0.08 (0.00-0.20) K/uL Immature Gran # (Auto) 0.03 (0.01-0.20) K/uL PT 10.8 (9.0-12.0) Seconds INR 1.0 (0.9-1.1) Sodium 137 (136-145) mmol/L Potassium 4.5 (3.5-5.1) mmol/L Chloride 97 L (98-107) mmol/L Carbon Dioxide 32 (21-32) mmol/L Anion Gap 8 (3-11) BUN 26 H (6-23) mg/dl Creatinine 3.14 H (0.6-1.4) mg/dl Est Cr Clr Drug Dosing 18.1 ml/min Est GFR ( Amer) 21.2 ml/min Est GFR (Non-Af Amer) 18.2 ml/min BUN/Creatinine Ratio 8.3 L (10-20) Glucose 77 (70-99(Fasting)) mg/dl Calcium 9.6 (8.6-10.3) mg/dl Total Bilirubin 0.4 (0.2-1.0) mg/dl AST 31 (13-39) U/L ALT 11 (7-52) U/L Alkaline Phosphatase 57 (34-104) U/L Total Protein 7.5 (6.0-8.3) gm/dl Albumin 4.1 (3.4-5.0) gm/dl Globulin 3.4 (2.5-4.0) gm/dl Albumin/Globulin Ratio 1.2 (0.9-2) Diagnostic Findings Chest X-Ray 03/27/23 00:00 XR chest 1V not portable HISTORY: 77 years-old Male LEFT HIP FAX acute chest trauma COMPARISON: 12/02/2022 TECHNIQUE: AP view of the chest FINDINGS: The patient is rotated towards the left. Cardiac silhouette is enlarged. Pulmonary vascular congestion with interstitial coarsening. Atherosclerosis of the aorta. Right IJ dual-lumen hemodialysis catheter distal tip projection in the right atrium. No pneumothorax. Trace pleural effusion suggested with mild bibasilar densities, likely atelectatic. Degenerative changes of the shoulders and spine. IMPRESSION: 1. Cardiomegaly with pulmonary vascular congestion. 2. Probable trace pleural effusions. 3. No acute posttraumatic abnormality of the chest identified. ACT 112: Negative or not required by law. The above report was generated using voice recognition software. It may contain grammatical, syntax or spelling errors. Electronically signed by: Velasquez Reveles M.D. 03/27/2023 12:43 PM Hip X-Ray 03/27/23 11:45 XR hip LT min 2V, XR femur LT 1V CLINICAL HISTORY: fall TECHNIQUE: 2 views of the left hip and one view of the left femur were obtained. Comparison: None available at the time of this dictation. FINDINGS: Intratrochanteric fracture of the femur is seen with minimal displacement. Hip joint is probably degenerative in appearance. Soft tissue swelling is seen. IMPRESSION: Intertrochanteric fracture of the femur with associated soft tissue swelling. ACT 112: Negative or not required by law. Electronically signed by: Ren Thompson M.D. 03/27/2023 12:47 PM Knee X-Ray 03/27/23 11:45 XR knee LT 1 or 2V routine HISTORY: 77 years-old Male fall acute left knee pain status post fall COMPARISON: Left hip and femur radiographs of same day TECHNIQUE: 2 views of the left knee FINDINGS: Limited study secondary to positioning. Arterial calcifications. Demineralized appearance of the bones. No definite acute fracture or dislocation identified. IMPRESSION: Limited exam secondary to positioning. No acute fracture or dislocation identified on the suboptimal images submitted. ACT 112: Negative or not required by law. The above report was generated using voice recognition software. It may contain grammatical, syntax or spelling errors. Electronically signed by: Velasquez Reveles M.D. 03/27/2023 12:42 PM Femur X-Ray 03/27/23 11:48 XR hip LT min 2V, XR femur LT 1V CLINICAL HISTORY: fall TECHNIQUE: 2 views of the left hip and one view of the left femur were obtained. Comparison: None available at the time of this dictation. FINDINGS: Intratrochanteric fracture of the femur is seen with minimal displacement. Hip joint is probably degenerative in appearance. Soft tissue swelling is seen. IMPRESSION: Intertrochanteric fracture of the femur with associated soft tissue swelling. ACT 112: Negative or not required by law. Electronically signed by: Ren Thompson M.D. 03/27/2023 12:47 PM (1) Closed hip fracture Encounter type: initial encounter Laterality: left Qualified Code(s): S72.002A - Fracture of unspecified part of neck of left femur, initial encounter for closed fracture
--- NOTE | 2023-03-27 15:26 | CT Scan Report ---
CT knee LT wo con HISTORY: 77 years-old Male Fall acute left knee pain status post fall COMPARISON: Left knee radiographs 03/27/2023 TECHNIQUE: Multiple axial CT images of the left knee were obtained without the use of IV contrast. A dose lowering technique was used consistent with the principals of ALARA. FINDINGS: Limited exam secondary to positioning. The mineralized appearance of the bones. Chondrocalcinosis wit h tricompartmental osteoarthritis, mild to moderate the patellofemoral joint and mild within the medi al and lateral compartments. No acute fracture or dislocation identified. Trace joint effusion with s uprapatellar synovial calcifications. Arterial calcifications are also noted. 3.4 x 1.8 x 4.0 cm mild ly complex Newby's cyst. Tendons and ligaments are not well evaluated by CT technique. IMPRESSION: No acute fracture or dislocation. ACT 112: Negative or not required by law. The above report was generated using voice recognition software. It may contain grammatical, syntax o r spelling errors. Electronically signed by: Velasquez Reveles M.D. 03/27/2023 3:24 PM
[2023-03-27] MEDS ORDERED: bisacodyL 10 MG SUPP PR PRN (16:36)
[2023-03-27] MEDS ORDERED: MAGNESIUM HYDROXIDE SUSP 30 ML UDC PO PRN (16:36)
[2023-03-27] MEDS ORDERED: ONDANSETRON INJ 2 MG/ML 2 ML VIAL IV PRN (16:36)
[2023-03-27] MEDS ORDERED: NALOXONE HCL 0.4 MG/1 ML VIAL/CARP IV PRN (16:36)
--- NOTE | 2023-03-27 16:44 | Electrocardiogram Report ---
Test Reason : Blood Pressure : / mmHG Vent. Rate : 059 BPM Atrial Rate : 059 BPM P-R Int : 188 ms QRS Dur : 086 ms QT Int : 452 ms P-R-T Axes : 094 000 010 degrees QTc Int : 447 ms Sinus bradycardia Poor R wave progression, consider anterior UT vs. lead placement vs. LVH Abnormal ECG When compared with ECG of 03-DEC-2022 04:40, Criteria for Inferior infarct are no longer Present T wave amplitude has decreased in Lateral leads Confirmed by Benitez Zuñiga ([id number]) on 03/27/2023 4:44:04 PM Referred By: REFERRED SELF Confirmed By:Nathaniel Zuñiga
[2023-03-27] MEDS: ACETAMINOPHEN 500 MG TAB PO SCH (17:11)
[2023-03-27] MEDS: oxyCODONE HCL IR 5 MG TAB (IMMEDIATE RELEASE) PO PRN (17:11)
--- OUTSIDE RECORDS SUMMARY | 2023-03-27 18:32 | External Medical Summary | Summary of Care ---
Author Name Unknown Organization [facility] Address [address] [place] [address] Phone [phone] Care Team Providers Care Electrical Instrument Technician Name Role Phone Barrett Dacosta MD Primary Care Provider + Reason for Visit * Reason Comments Consultation Malignant neoplasm o f the esophagus * Evaluate & Treat - Unlimited Visits (Within 10 days (routine)) - Authorized Specialty Diagnoses / Procedures Referred By Contac t Referred To Contact Hematology/Oncology / Hematology Oncology Diagnoses Malignant neoplasm of esophagus, unspecified location (HCC) Barrett Dacosta MD [address] [facility] [place] [address] Referral ID Status Reason Start Date Expiration Date Visits Requested Visits Authorized [id number] Authorized Specialty Services Required 03/09/[phone] Encounter Details Date Type Department Care Team (Latest Contact Info) Description 03/22/2023 12:15 PM EST Office Visit Hematology/Oncology Teri Dodson [place] [address] [facility] [place] [id number] Werner Roland MD [address] [place] [address] Esophageal adenocarcinoma (HCC)* Allergies No known active allergiesdocumented as of this encounter (statuses as of 03/22/2023) Medications Medication Sig Dispensed Refills Start Date End Date Status Latanoprost 0.005 % Ophthalmic Solution (Xalatan) Instill 1 Drop into both eyes at bedtime. 0 05/27/2020 Active Acetaminophen 325 MG Oral Tablet Take 1 Tablet by mouth every 6 hours as needed. 0 Active Belinda-Moose Oral Tablet Take 1 Tablet by mouth in the morning. 0 04/19/2022 Active Torsemide 100 MG Oral Tablet (Demadex) Take 1 Tablet by mouth in the morning. 0 Active Sennosides 8.8 MG/5ML Oral Syrup (Senokot) Take 5 mL by mouth daily as needed for Constipation. 236 mL 5 12/19/2022 Active Omeprazole 40 MG Oral Capsule Delayed Release (PriLOSEC) Take 1 Capsule by mouth in the morning. 90 Capsule 0 01/13/2023 04/13/2023 Active traMADol HCl 50 MG Oral Tablet (Ultram)Indication s:MEDICATION USE AGREEMENT,Status post lumbar spinal fusion,Chronic bilateral low back pain, unspecified whether sciatica present Take 2 Tablets by mouth every 6 hours as needed for Pain, Severe. 240 Tablet 0 01/23/2023 Active Gabapentin 100 MG Oral Capsule (Neurontin) Take 1 Capsule by mouth in the morning and 1 Capsule at noon and 1 Capsule before bedtime. 0 01/23/2023 Active Sevelamer Carbonate 800 MG Oral Tablet (Renvela) TAKE 1 TABLET BY MOUTH THREE TIMES A DAY WITH MEALS 0 01/31/2023 Active oxyCODONE HCl 5 MG Oral Tablet (Oxy IR)Indications:Mal ignant neoplasm of esophagus, unspecified location (HCC),Status post lumbar spinal fusion Take 1 Tablet by mouth every 4 hours as needed for Pain, Moderate or Pain, Severe. 1 Tablet 0 03/09/2023 Active Additional Information Patient not taking.Reported on 03/22/2023 documented as of this encounter (statuses as of 03/22/2023) Active Problems Problem Noted Date Diagnosed Date Protein-calorie malnutrition 03/09/2023 Hemiplegia and hemiparesis f ollowing cerebral infarction affecting left non-dominant side 03/09/2023 AVF (arteriovenous fistula) 03/08/2023 Hypertensive CKD, ESRD on dialysis 12/16/2022 Altered bowel elimination due to intestinal osto my 12/16/2022 Medical home patient encounter 09/28/2022 Colostomy status 09/26/2022 Overview: Sigmoid colostomy by Dr. Jorge on 09/09/22 SSS (sick sinus syndrome) 09/05/2022 Atrioventricular block, Mobitz type 1, [place] 09/05/2022 1st degree AV block 09/05/2022 Anemia due to chronic kidney disease, on chronic dialysis 06/03/2022 Aneurysm of left vertebral artery 06/03/2022 Overview: 05/26 [facility]A [facility] Type 2 diabetes mellitus wit h chronic kidney disease on chronic dialysis 03/01/2022 Calcification of aorta 03/01/2022 ESRD on dialysis 03/01/2022 Primary open-angle glaucoma, bilateral, indeterm inate stage 02/14/2020 Persistent proteinuria 04/18/2018 Type 2 diabetes mellitus wit h hemoglobin A1c goal of less than 8.0% 11/27/2017 MEDICATION USE AGREEMENT 02/19/2015 Status post lumbar spinal fusion 06/17/2014 Overview: 06/11/14 Sia Routine general medical exam ination at a health care facility 04/24/2014 Overview: 01/26 EGD gastro-esoph mass PATH: 11/26 fall, right hip frx. 12/26 EGD + high grade dysplasia (? [place] [facility] [place]esophagitis, martha 4 wk. CVA 05/26 [facility]. Left sided weakness. 05/26 TTE [facility] normal EF Grade 2 Farmer Dys. Moderate AV sclerosis and calcified mitral valve--stenosis + mod MR.mild MS. No shunt. 04/24 colon-polyp tubular adenoma. Declined f/u. 2012 adenoma. 08/18 TTE-possilbe vegetation. Mild LVH History of prostate cancer 01/09/2013 Overview: S/p [place] [facility] [place], goal below 140/90 06/04/2012 Gout 06/04/2012 Overview: 07/18 indomethicin non-form documented as of this encounter (statuses as of 03/22/2023) Resolved Problems Problem Noted Date Diagnosed Date Resolved Date Cerebrovascular accident (CV A) due to thrombosis of right middle cerebral artery 09/05/2022 09/26/2022 Overview: Hx - CVA in May 2022 Glaucoma 06/03/2022 08/18/2022 End stage renal disease 03/01/2022 03/2 10/2022 Kidney disease, chronic, sta ge IV (GFR 15-29 ml/min) 01/12/2022 01/20/2022 Anemia in stage 4 chronic kidney disease 02/19/2021 06/03/2022 Kidney disease, chronic, sta ge IV (GFR 15-29 ml/min) 02/19/2021 09/01/2022 Type 2 diabetes mellitus wit h stage 3b chronic kidney disease, without long-term current use of insulin 08/19/2020 08/19/2020 Benign hypertension with sta ge 3b chronic kidney disease 07/14/2020 08/19/2020 Overview: Per CKD protocol Chronic kidney disease, stage 3b 07/14/2020 08/19/2020 Overview: Per CKD protocol Chronic kidney disease, stage 3b 07/14/2020 08/19/2020 Overview: Per CKD protocol Type 2 diabetes mellitus wit h stage 3b chronic kidney disease 07/14/2020 08/19/2020 Overview: Per CKD protocol Stage 3a chronic kidney disease 05/08/2020 07/16/2020 Overview: Per CKD protocol Diabetes mellitus with stage 3 chronic kidney disease 01/13/2020 07/16/2020 Overview: Per CKD protocol Hypertensive kidney disease with stage 3b chronic kidney disease 01/13/2020 08/19/2020 Overview: Per CKD protocol Benign hypertension with CKD (chronic kidney disease) stage III 04/01/2019 07/16/2020 Overview: Per CKD protocol Type 2 diabetes mellitus wit h stage 3 chronic kidney disease, without long-term current use of insulin 09/19/2018 01/16/2020 Overview: Per CKD protocol Hypertensive kidney disease with chronic kidney disease stage III 09/19/2018 01/16/2020 Overview: Per CKD protocol Diabetes mellitus with nephropathy 04/09/2018 08/12/2021 Constipation due to opioid therapy 03/29/2018 08/27/2019 Overview: Acute. History of nonmelanoma skin cancer 07/11/2017 07/11/2017 History of melanoma in situ 01/06/2016 09/18/2019 Overview: Historical. Kidney disease, chronic, sta ge III (GFR 30-59 ml/min) 03/16/2015 10/18/2018 Overview: Per CKD protocol #1 Bilateral low back pain without sciatica 02/19/2015 08/27/2019 Overview: Acute. Nevus 09/19/2014 10/12/2016 Abnormal echocardiogram 08/19/2014 07 Recurrent sinus infections 04/24/2014 0 10/12/2016 Microalbuminuria 04/24/2014 10/12/2016 Dyslipidemia, goal LDL below 130 11/07/2013 06/03/2022 Dyslipidemia, goal LDL below 100 11/06/2013 11/07/2013 OA (osteoarthritis) of knee 11/06/2013 10/12/2016 Elevated prostate specific antigen (PSA) 08/06/2012 02/20/2013 Type 2 diabetes mellitus wit h hemoglobin A1c goal of less than 7.0% 06/04/2012 11/07/2013 Overview: ICD-10 update of inactive term Hyperlipidemia with target LDL less than 130 3 11/06/2013 Overview: ICD-10 update of inactive term Malignant melanoma of face 06/04/2012 0 10/12/2016 Internal hemorrhoids 06/04/2012 017 documented as of this encounter (statuses as of 03/22/2023) Immunizations Name Administration Dates Next Due COVID-19 mRNA, LNP-s, No Pre serve, 2-Dose Series (MyNewPlace) 02/20/2021,06/17/2020,05/26/2020 Covid-19, Mrna, Lnp-s, Pf, B ivalent, 30 Mcg, IM, 12 yrs and above (Pfizer) 12/24/2021 Hepatitis B Vaccine, Recombi nant, Adjuvanted, 20 mcg/mL (Heplisav-B) 04/11/2022,03/11/2022 Pneumococcal Conjugate Vacc, 13 Valent (Prevnar) 08/05/2015 Pneumococcal Conjugate Vaccine, 7 Valent 011 Pneumococcal Polysaccharide PPV23 (Pneumovax) 11/06/2013,01/05/2010 Season Influenza, Quad, PF, Adjuvanted, 65+ Yrs, IM (FLUAD) 11/16/2019 Seasonal Influenza, PF, 6 M & above, IM , (FluLaval or Fluzone) 11/27/2017,01/23/2017 Seasonal Influenza, Quadriva lent Hd (Fluzone Hd) 12/11/2021,11/21/2020 Seasonal Influenza, Quadriva lent Hd, 65+ Yrs 12/08/2022 Seasonal Influenza, Quadriva lent, No Preserve, IM 12/09/2015,02/19/2015 Seasonal Influenza, Split, I IV3, With Preserve, Inj 11/06/2013,02/20/2013,11/19/2011 Seasonal Influenza, Trivalen t, Adjuvanted, 65+ yrs 01/22/2019 TDAP (age 11 and older)(Adacel) 11/18/2010,01/05 Varicella Zoster Vaccine (Adult) 11/19/2011 Zoster Vaccine Recombinant (Shingrix) 08/20/2019 ,04/01/2019 documented as of this encounter Social History Tobacco Use Types Packs/Day Years Used Date Smoking Tobacco: Never Smokeless Tobacco: Current Snuff Tobacco Cessation:Ready to Q uit: Not Asked; Counseling Given: Not Answered Comments:half can per day Alcohol Use Standard Drinks/Week Comments Not Currently 0.8 (1 standard drink = 0.6 oz p ure alcohol) occasionally PHQ-2 Answer Date Recorded PHQ Adult Total Score 0 09/01/2022 Hunger Vital Sign Answer Date Recorded Within the past 12 months, y ou worried that your food would run out before you got the money to buy more. Never true 09/28/19 23 Within the past 12 months, t he food you bought just didn't last and you didn't have money to get more. Never true 09/27/2022 Sex and Gender Information Value Date Recorded Sex Assigned at Male 09/01/2022 8:13 AM EDT Gender Identity Male 09/01/2022 8:13 AM EDT Sexual Orientation Straight 09/01/2022 8: 13 AM EDT Job Start Date Occupation Industry Not on file Not on file Not on file documented as of this encounter Last Filed Vital Signs Vital Sign Reading Time Taken Comments Blood Pressure 122/66 03/22/2023 11:51 AM EST Pulse 79 03/22/2023 11:51 AM EST Temperature 35.3 C (95.5 F) 03/22/2023 1 1:51 AM EST Respiratory Rate 16 03/22/2023 11:5 1 AM EST Oxygen Saturation 97% 03/22/2023 11: 51 AM EST Inhaled Oxygen Concentration - - Weight 63.5 kg (139 lb 14.4 oz) 024 11:51 AM EST Height - - Body Mass Index 22.58 02/16/2023 12:15 PM EST documented in this encounter Progress Notes * Werner Roland MD - 03/22/2023 12:15 PM EST Hematology/Oncology Outpatient Consult Note [facility] [place] [address] [facility] [place] [address] GUILLERMO CASON MR # [id number] :1945 77-year-old male, REASON FOR CONSULTATION: Consultation for Guillermo Cason requested by Dr. Barrett Dacosta for evaluation and discussion of treatment options for esophageal cancer. Date of consultation:03/22/2023 DIAGNOSIS: - lower esophageal adenocarcinoma T2 N0 M0. He is on hemodialysis ( originally started on peritoneal dialysis about a year back, lately change to hemodialysis after complications in the abdomen which required sigmoid colostomy. 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 ( he used NSAID for the chronic back pain). CURRENT TREATMENT: He will be seen by radiation oncologist at [facility] and then he will decide whether he would like to proceed with combined chemotherapy and radiation treatment. Earlier he was seen by Dr. Olivas, because of comorbid conditions, no surgical intervention offered. DIAGNOSTIC WORKUP: Recently somewhere in November 2022 when he was admitted for right hip fracture following fall andrequired surgical intervention, he could not swallow the pill, he then had evaluation by GI, had endoscopic evaluation on 3 occasions, the last endoscopy evaluation was done in February 2023 which showed lower esophageal mass, biopsy showed invasive adenocarcinoma, moderately differentiated arising off high-grade dysplasia. HER2 Randy positive (02/17/2020 -EUS showed T2 N0 M0. PET-CT scan done on 01/31/2023 showed poorly defined probable mass at distal to the GE junction. Nometabolic active disease noted anywhere else. Has lost some weight, current weight around 139 lb. He has chronic back pain, had back surgery, has been taking tramadol, could not take gabapentin because of some side effects, also has oxycodone prescribed by his primary-care provider. INTERVAL HISTORY: He has come the clinic for the initial evaluation, accompanied by his in the office. Ambulating with the help of the cane. He says that he had a CV stroke with some weakness involving the left side of the body but then he recovered well, he had some fall with fracture of the right hip which required surgical intervention( Displaced fracture of right femoral neck) in November 2022. REVIEW OF SYSTEMS: GENERAL: Slight weight loss noted, feeling weak and tired,, no fever, sweats or chills. SKIN: No skin rash, no bruising. HEAD: No new or new headache, no dizziness. EYES: No recent change in the vision, no diplopia, EARS: No earache no tinnitus, NOSE: No epistaxis, No nasal discharge or stuffiness, MOUTH: No sores, no dysphagia, no hoarseness of voice, NECK: No lumps, No swelling in thyroid area. No stiffness. PULMONARY: No cough, No shortness of breath at rest, no hemoptysis, no chest pain, No wheezing. CARDIOVASCULAR: No anginal chest pain, no PND, no orthopnea. No palpitation, no leg edema. GASTROINTESTINAL: No abdominal pain, no nausea or vomiting. No diarrhea, No constipation. No blood in stool or black tarry stools. No abdominal distention. UROLOGIC: No burning urination. No hematuria. MUSCULOSKELETAL: Chronic back pain right hip replacement surgery in November 2022. HEMATOLOGIC: Mild anemia,, no bleeding disorder, No bruising. NEUROLOGIC: No seizures, no focal weakness, no speech difficulty, No memory disturbances. Tingling and numbness of extremities. PSYCHIATRIC: No depression. No anxiety. No psychosis. Past Medical History: Diagnosis Date Abnormal echocardiogram 08/19/2014 Anemia due to chronic kidney disease, on chronic dialysis ([facility]) 06/03/2022 Anemia in stage 4 chronic kidney disease 02/19/2021 Aneurysm of left vertebral artery ([facility]) 06/03/2022 Benign neoplasm of colon 07/20/12 COLONOSCOPY FLEXIBLE PROXIMAL DIAGNOSTIC performed by Rukhsana Gunter DO at [facility],ADENOMATOUS POLYPS REPEAT COLONOSCOPY IN 5 YEARS Bilateral low back pain without sciatica 02/19/2015 Cerebrovascular accident (CVA) due to thrombosis of right middle cerebral artery (HCC) 09/05/2022 Hx - CVA in May 2022 Constipation due to opioid therapy 03/29/2018 Diabetes mellitus with nephropathy ([facility]) 04/09/2018 Dyslipidemia, goal LDL below 100 11/06/2013 Dyslipidemia, goal LDL below 130 11/07/2013 Gout 06/04/2012 High blood pressure HTN, goal below 140/80 06/04/2012 Internal hemorrhoids 06/04/2012 Kidney disease, chronic, stage IV (GFR 15-29 ml/min) (HCC) 02/19/2021 Malignant melanoma of face (HCC) 06/04/2012 Malignant melanoma of skin of other and unspecified parts of face MEDICATION USE AGREEMENT 02/19/2015 Microalbuminuria 04/24/2014 OA (osteoarthritis) of knee 11/06/2013 Other and unspecified hyperlipidemia Hypercholesterolemia Prediabetes 07/18/2014 Prostate cancer (HCC) 11/13/12 marco 7 and 6 Recurrent sinus infections 04/24/2014 Status post lumbar spinal fusion 06/17/2014 06/11/14 Sia Type 2 diabetes mellitus with chronic kidney disease on chronic dialysis ([facility]) 03/01/2022 Type 2 diabetes mellitus with hemoglobin A1c goal of less than 8.0% ([facility]) 11/27/2017 Past Surgical History: Procedure Laterality Date AV ACCESS, DIRECT ANASTOMOSIS Left 02/09/2023 ARTERIOVENOUS ANASTOMOSIS OPEN DIRECT ANY SITE performed [place] Brian Pay[place] [facility] [place], DIAGNOSTIC (RECTUM) 07/20/2012 COLONOSCOPY FLEXIBLE PROXIMAL DIAGNOSTIC performed [place] Rukhsana Gunter DO [place] [facility] [place],ADENOMATOUS POLYPS REPEAT COLONOSCOPY IN 5 YEARS COLONOSCOPY, DIAGNOSTIC (RECTUM) 05/03/2018 diverticulosis sigmoid colon/biopsies show adenomatous polyps/recall 3 years/COLONOSCOPY FLEXIBLE PROXIMAL DIAGNOSTIC performed by Rukhsana Gunter DO at [facility]COPY [facility] COLONOSCOPY/REMOVE LESION 2009 EGD, FLEXIBLE, ENDO MUCOSAL RESECTION N/A 02/16/2023 ESOPHAGOGASTRODUODENOSCOPY (EGD), FLEXIBLE, TRANSORAL: MUCOSAL RESECTION performed by Karlee Buitrago MD at OR [facility] EGD, W/ENDOSCOPIC US N/A 01/13/2023 partially obstructing tumor GEJ/one benign appearing enlarged lymph node/biopsies show Valentin's esophagus high grade dysplasia/EGD/[place] EGD, W/ENDOSCOPIC US 02/16/2023 ESOPHAGOGASTRODUODENOSCOPY (EGD), FLEXIBLE, TRANSORAL, ENDOSCOPIC ULTRASOUND performed by Karlee Buitrago MD at OR [facility] FRAGMENT KIDNEY STONE BY SHOCK WAVE 2008? ric INJECTION LUMBAR/SACRAL 03/28/2014 INJECTION SPINE LUMBAR OR SACRAL performed by Vicente Mcpherson DO at OR [facility] LAPAROSCOPY, W/ INSERT INTRAPERITONEAL CATH N/A 01/12/2022 LAPAROSCOPIC INSERTION INTRAPERITONEAL CANNULA OR CATHETER performed by Florentin Will MD at OR [facility] LUMBAR / SACRAL EPIDURAL, SINGLE LEVEL 08/08/2016 INJECTION TRANSFORAMINAL EPIDURAL LUMBAR OR SACRAL performed by [place] Latasha Mcpherson DO at OR [facility] LUMBAR / SACRAL EPIDURAL, SINGLE LEVEL 08/25/2016 INJECTION TRANSFORAMINAL EPIDURAL LUMBAR OR SACRAL performed by Vicente Latasha Mcpherson DO at OR [facility] LUMBAR SPINE FUSION W/BONE GRAFT 06/11/2014 Dr Corrales [facility] AJCC STAGE 0 OR 1A DOCUMENTED 1999 face NEEDLE/PUNCH BIOPSY OF PROSTATE 11/06/2012 Prostate,Needle/Punch Biopsy OTHER 09/16/2022 Permacath placement for HD @[facility] TX COLOSTOMY/SKIN LEVEL CECOSTOMY 09/09/2022 Dr Jorge [facility] TX EXPLORATORY LAPAROTOMY CELIOTOMY W/WO BIOPSY SPX 09/09/2022 Dr Jorge [facility]. ex lap for SBO/sigmoid colostomy, removal PD catheter. TX REVJ TOT HIP ARTHRP FEM ONLY W/WO ALGRFT Right 12/03/2022 PROSTATECTOMY, RETROPUBIC RADICAL, LAP 01/07/2013 ROBOTIC LAPAROSCOPIC PROSTATECTOMY RETROPUBIC RADICAL performed by Cordell Whitehead MD at [facility] REMOVE CATARACT, INSERT LENS PROSTH 2007 bilateral Current Outpatient Medications Medication Sig Dispense Refill Latanoprost 0.005 % Ophthalmic Solution (Xalatan) Instill 1 Drop into both eyes at bedtime. Acetaminophen 325 MG Oral Tablet Take 1 Tablet by mouth every 6 hours as needed. Belinda-Moose Oral Tablet Take 1 Tablet by mouth in the morning. Torsemide 100 MG Oral Tablet (Demadex) Take 1 Tablet by mouth in the morning. Sennosides 8.8 MG/5ML Oral Syrup (Senokot) Take 5 mL by mouth daily as needed for Constipation. 236mL 5 Omeprazole 40 MG Oral Capsule Delayed Release (PriLOSEC) Take 1 Capsule by mouth in the morning. 90Capsule 0 traMADol HCl 50 MG Oral Tablet (Ultram) Take 2 Tablets by mouth every 6 hours as needed for Pain, Severe. 240 Tablet 0 Gabapentin 100 MG Oral Capsule (Neurontin) Take 1 Capsule by mouth in the morning and 1 Capsule at noon and 1 Capsule before bedtime. Sevelamer Carbonate 800 MG Oral Tablet (Renvela) TAKE 1 TABLET BY MOUTH THREE TIMES A DAY WITH MEALS oxyCODONE HCl 5 MG Oral Tablet (Oxy IR) Take 1 Tablet by mouth every 4 hours as needed for Pain, Moderate or Pain, Severe. 1 Tablet 0 No current facility-administered medications for this visit. 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 1 son w/step grandson. no grandkids Other Topics Concern Service Yes Comment: [employer] Blood Transfusions No Caffeine Concern No Occupational Exposure No Hobby Hazards No Sleep Concern No Stress Concern No Weight Concern No Special Diet No Back Care Not Asked Exercise Yes Bike Helmet Not Asked Seat Belt Yes Self-Exams Not Asked Social History Narrative Switching to oil 2019 Social Determinants of Health Financial Resource Strain: Not on file Food Insecurity: No Food Insecurity (09/27/2022) Hunger Vital Sign Worried About Running Out of Food in the Last Year: Never true Ran Out of Food in the Last Year: Never true Transportation Needs: Not on file Physical Activity: Not on file Stress: Not on file Social Connections: Not on file Intimate Partner Violence: Not on file Housing Stability: Not on file On Exam: BP 122/66 (BP Site: Left Arm, BP Position: Sitting, BP Cuff Size: Large) | Pulse 79 | Temp 35.3 C(95.5 F) (Tympanic) | Resp 16 | Wt 63.5 kg (139 lb 14.4 oz) | SpO2 97% | BMI 22.58 kg/m | BSA 1.72 m Constitutional: Patient is alert, cooperative and oriented x 3. Well built man, Patient is in no acute distress. HEENT:No icterus, no pallor, Throat and pharynx normal. Sinuses are non-tender. Neck: Supple and without lymphadenopathy or masses. No JVD. No Palpable supraclavicular lymph nodes. Lungs: Clear to auscultation. Bilateral symmetric air entry. No wheezing or rhonchi. Cardiovascular: Normal heart sounds, no murmurs.Regular rate and rhythm. Abdomen: soft, nontender, no hepatomegaly, no splenomegaly. Bowel sounds are normal. Neurological: No gross focal neurological deficit; walks with help of cane. Extremities: No finger clubbing, No cyanosis. No leg edema. Skin:: No skin rash. LABS: Blood workup done on 01/12/2023: -WBC 6500, H&H of 14.5/46.3, Platelet count of [id number] -BUN/Creat: 17/2.5, Calcium 10.2. IMAGING: CT chest, abdomen pelvis on 12/29/2022: No metastatic disease, 3 mm calcification in the ampulla ofthe pancreatic duct. ASSESSMENT AND PLAN: 77-year-old male, Lower esophageal adenocarcinoma based on EUS, T2 N0 M0, PET-CT scan negative for distant metastaticdisease. Several comorbid conditions, mainly chronic back pain, CV stroke, ESRD, currently on hemodialysis, has sigmoid colostomy, I reviewed with the patient and his regarding the diagnostic workup, reviewed the blood workupfindings. Seen by Dr. Olivas, no surgical intervention suggested based on his comorbid conditions. Discussed with him regarding the role of combined chemotherapy and radiation treatment that can be considered, he has an appointment with the radiation oncologist next week and then he will let us know. If he is in agreement, we could consider weekly Paclitaxel and carboplatin, he can receive the chemotherapy on the nondialysis day and have dialysis on the following day. Other option would be he could continue with radiation treatment alone Thanks for the consultation. Dr. Werner Roland Hem/Onc (This note was completed using the dictation program Fluency Direct. As such, there may be misspellings word substitutions, or other variations that should not change the essence of the clinical content of this encounter note. If there is need for further clarification, please direct questions to the provider listed above.) documented in this encounter Nursing Notes * Rosalba Sorto CMA - 03/22/2023 11:51 AM EST Filed Vitals: 03/22/23 1151 BP: 122/66 Pulse: 79 Resp: 16 Temp: 35.3 C (95.5 F) TempSrc: Tympanic SpO2: 97% Weight: 63.5 kg (139 lb 14.4 oz) Patient was instructed to not get up on the exam table/exam chair until directed and assisted by their provider; patient is to remain seated in the chair/ wheelchair/ exam table/ exam chair for fall prevention and safety reasons. Patient is aware to have assistance to step down off exam table/exam chair with personnel. Patient voiced full comprehension of instructions. documented in this encounter Plan of Treatment Upcoming Encounters Date Type Department Care Team (Late st Contact Info) Description 03/29/2023 9:00 AM EST Scheduled Telephone Palliative Medicine, [facility] [address] [facility] 5th [place] [address] [place], Nurse Palliative Medicine [address] [place] [address] 04/05/2023 11:30 AM EST Office Visit Vascular Surgery, [facility] [address] [place] [address] Brian Patyon MD [address] [place] [address] 06/29/2023 8:00 AM EDT Office Visit Family Practice [facility] [address] [place] [address] Barrett Dacosta MD [address] [place] [address] 01/23/2024 11:00 AM EST Telemedicine Neurosurgery, [place] [address] [place] [address] Earle Murphy MD [address] [place], [place] [id number] Scheduled Procedures Name Priority Associated Diagnoses Date/Ti me COLONOSCOPY, FLEXIBLE; WITH ENDOSCOPIC MUCOSAL RESECTION Recall History of colonic polyps Scheduled Referrals Name Type Priority Associated Diagnoses Orde r Schedule HEMATOLOGY/ONCOLOGY REFERRAL OP Referral Within 10 days (routine) Malignant neoplasm of esophagus, unspecified location (HCC) Ordered: 03/09/2023 Health Maintenance Due Date Last Done Comments DTaP,Tdap,and Td Vaccines (3 - Td or Tdap) 11/18/2020 11/18/2010, 01/05/2010 COLONOSCOPY-EVERY 3 YRS AGES 18-100 05/03/2021 05/03/2018, 05/03/2018, 07/20/2012, Additional history exists Diabetic Foot Exam 03/01/2023 03/01/2022, 1 04/21/2020, 02/14/2020, Additional history exists HbA1c 07/13/2023 01/12/2023, 01/0 05/2022, 08/16/2021, Additional history exists Diabetic Eye Exam 07/27/2023 07/26/2022 (Do ne elsewhere), 07/26/2022, 06/01/2021, Additional history exists Depression Screening 09/02/2023 09/01/2022, 11/09/2016 (Declined) Pneumococcal Vaccine: 65+ Years Completed 08/05/2015, 11/06/2013, 01/05/2010 Zoster Vaccines Completed 08/20/2019, 03/07, 11/19/2011 Albumin/Creatinine Ratio Discontinued 022, 09/24/2019, 04/01/2019, Additional history exists Nephrology Referral Discontinued 11/30/2021 Hepatitis B Completed 04/11/2022, 03/11/2022 Influenza Vaccine (FLU shot) Completed 12/08/2022, 12/11/2021, 11/21/2020, Additional history exists COVID-19 Vaccine Completed 01/06/2023, , 02/20/2021, Additional history exists GARDASIL-HPV IMMUNIZATION SERIES Aged Out No longer eligible based on patient's age to complete this topic MENINGOCOCCAL (MENACTRA/MENVEO) Aged Out No longer eligible based on patient's age to complete this topic documented as of this encounter Medical Devices Not on filedocumented as of this encounter Visit Diagnoses Diagnosis Esophageal adenocarcinoma (HCC)- Primary Malignant neoplasm of esophagus, unspecified site documented in this encounter Advance Directives Latest Code Status on File Code Status Date Activated Date Inactivated Comments Full Code 01/12/2022 6:58 AM 01/12/2022 3:29 PM Question Answer Comments Discussion of Advance Directives occurred with: Not Discussed due to patient's condition preop order Code Status History Code Status Date Activated Date Inactivated Comments Full Code 01/07/2013 12:35 PM 01/09/2013 3:16 PM This order reflects the patients wishes and were consensually agreed upon. Question Answer Comments Discussion of Advance Directives occurred with: Not Discussed Healthcare Agents on File Name Relationship Healthcare Agent Relationshi p Communication Jacklyn Cason Spouse Health Care Repr esentative (appointed verbally by patient or by statute hierarchy) Care Teams Electrical Instrument Technician Relationship Specialty Start Date End Date Barrett Dacosta MD [address] [place] [address] PCP - General Family Medicine 04/11/18 documented as of this encounter"
--- OUTSIDE RECORDS SUMMARY | 2023-03-27 18:32 | External Medical Summary | Summary of Care ---
Author Name Unknown Organization [facility] Address [address] [facility] [place] [address] Phone [phone] Care Team Providers Care Mysql Database Administrator Name Role Phone Barrett Dacosta MD Primary Care Provider + Reason for Visit * Reason Onset Date Comments Appointment 03/10/2023 Encounter Details Date Type Department Care Team (Late st Contact Info) Description 03/10/2023 Telephone Family Practice [facility] [address] [place] [id number] Barrett Dacosta MD [address] [place] [address] Appointment Allergies No known active allergiesdocumented as of this encounter (statuses as of 03/10/2023) Medications Medication Sig Dispensed Refills Start Date [...] Active traMADol HCl 50 MG Oral Tablet (Ultram)Indications :MEDICATION USE AGREEMENT,Status post lumbar spinal fusion,Chronic bilateral [...] oxyCODONE HCl 5 MG Oral Tablet (Oxy IR)Indications:Ginna gnant neoplasm of esophagus, unspecified location (HCC),Status post lumbar spinal fusion Take 1 Tablet by mouth every 4 hours as needed for Pain, Moderate or Pain, Severe. 1 Tablet 0 03/09/2023 Active documented as of this encounter (statuses as of 03/10/2023) Active Problems Problem Noted Date Diagnosed Date [...] syndrome) 09/05/2022 Atrioventricular block, Mobitz type 1, Wemellykebac h 09/05/2022 1st degree AV block 09/05/2022 Anemia due to chronic kidney disease, on chronic dialysis 06/03/2022 Aneurysm of left vertebral artery 06/03/2022 Overview: 05/26 [facility] Type 2 diabetes mellitus wit h chronic [...] + high grade dysplasia (? Cancer--sent to [facility] for review)/esophagitis, martha 4 wk. CVA 05/26 [facility]. Left sided weakness. 05/26 TTE [facility] normal EF Grade 2 Farmer Dys. Moderate AV sclerosis and calcified mitral valve--stenosis + mod MR.mild MS. No shunt. 04/24 colon-polyp tubular adenoma. Declined f/u. 2012 adenoma. 08/18 TTE-possilbe vegetation. Mild LVH History of prostate cancer 01/09/2013 Overview: S/p resection Dr Whitehead [facility] HTN, goal below 140/90 06/04/2012 Gout 06/04/2012 Overview: 07/18 indomethicin non-form documented as of this encounter (statuses as of 03/10/2023) Resolved Problems Problem Noted Date Diagnosed Date [...] Acute. Nevus 09/19/2014 10/12/2016 Abnormal echocardiogram 08/19/2014 07/ Recurrent sinus infections 04/24/2014 0 10/12/2016 Microalbuminuria [...] as of this encounter (statuses as of 03/10/2023) Immunizations Name Administration Dates Next Due COVID-19 mRNA, LNP-s, No Pre serve, 2-Dose Series ([employer]) 02/20/2021,06/17/2020,05/26/2020 Covid-19, Mrna, Lnp-s, Pf, B ivalent, [...] Smoking Tobacco: Never Smokeless Tobacco: Current Snuff Comments:half can per day Alcohol Use Standard [...] on file documented as of this encounter Miscellaneous Notes * Telephone Encounter - Kristina Sorto OSA - 03/10/2023 10:31 AM EST I called rad/onc at [facility], they took his info and will call him to schedule an appt documented in this encounter Plan of Treatment Upcoming Encounters Date Type Department Care Team (Late st Contact Info) Description 04/05/2023 11:30 AM EST Office Visit Vascular Surgery, [facility] [address] [facility] [place] [address] Brian Payton MD [address] [place] [address] 06/29/2023 8:00 AM EDT Office Visit Family Practice [facility] [address] [facility] [place] [address] Barrett Dacosta MD [address] [facility] [place] [address] 01/23/2024 11:00 AM EST Telemedicine Neurosurgery, [place] [address] [place] [address] Earle Murphy MD [address] [place], [place] [phone] Scheduled Procedures Name Priority Associated Diagnoses Date/Ti me COLONOSCOPY, FLEXIBLE; WITH ENDOSCOPIC MUCOSAL RESECTION Recall History of colonic polyps Health Maintenance Due Date Last Done Comments DTaP,Tdap,and Td Vaccines (3 - Td or Tdap) 11/18/2020 11/18/2010, 01/05/2010 COLONOSCOPY-EVERY 3 YRS AGES 18-100 05/03/2021 05/03/2018, 05/03/2018, 07/20/2012, Additional history exists Diabetic Foot Exam 03/01/2023 03/01/2022, 1 04/21/2020, 02/14/2020, Additional history exists HbA1c 07/13/2023 01/12/2023, 05/2022, 08/16/2021, Additional history exists Diabetic Eye [...] Not on filedocumented as of this encounter Advance Directives Latest Code Status [...] Name Relationship Healthcare Agent Relationshi p Communication Jacklynmaureen Cason Spouse Health Care Repr esentative (appointed verbally by patient or by statute hierarchy) Care Teams Mysql Database Administrator Relationship Specialty Start Date End Date Barrett Dacosta MD [address] [address] PCP - General Family Medicine 04/11/18 documented as of this encounter
--- OUTSIDE RECORDS SUMMARY | 2023-03-27 18:32 | External Medical Summary | Summary of Care ---
Author Name Unknown Organization [facility] Address [address] [facility] [place] [address] Phone [phone] Care Team Providers Care Event Organizer Name Role Phone Barrett Dacosta MD Primary Care Provider + Reason for Visit * Reason Onset Date Comments NEW PATIENT 03/09/2023 JAN SEEN SOONER Encounter Details Date Type Department Care Team (Late st Contact Info) Description 03/09/2023 Telephone Hematology/Oncology [facility] [place] [address] [place] [address] Werner Roland MD [address] [facility] [place] [address] NEW PATIENT (JAN SEEN SOONER) Allergies No known active allergiesdocumented as of this encounter (statuses as of 03/09/2023) Medications Medication Sig Dispensed Refills Start Date [...] as of this encounter (statuses as of 03/09/2023) Active Problems Problem Noted Date Diagnosed Date [...] syndrome) 09/05/2022 Atrioventricular block, Mobitz type 1, Wenckebac h 09/05/2022 1st degree AV block 09/05/2022 Anemia due to chronic kidney disease, on chronic dialysis 06/03/2022 Aneurysm of left vertebral artery 06/03/2022 Overview: 05/26 [facility] Type 2 diabetes mellitus wit h chronic [...] + high grade dysplasia (? Cancer--sent to [facility] for review)/esophagitis, martha 4 wk. CVA 05/26 [facility]. Left sided weakness. 05/26 TTE [facility] normal EF Grade 2 Farmer Dys. Moderate AV sclerosis and calcified mitral valve--stenosis + mod MR.mild MS. No shunt. 04/24 colon-polyp tubular adenoma. Declined f/u. 2012 adenoma. 08/18 TTE-possilbe vegetation. Mild LVH History of prostate cancer 01/09/2013 Overview: S/p resection Dr Whitehead [facility] HTN, goal below 140/90 06/04/2012 Gout 06/04/2012 Overview: 07/18 indomethicin non-form documented as of this encounter (statuses as of 03/09/2023) Resolved Problems Problem Noted Date Diagnosed Date [...] Acute. Nevus 09/19/2014 10/12/2016 Abnormal echocardiogram 08/19/2014 07/1 Recurrent sinus infections 04/24/2014 0 10/12/2016 Microalbuminuria [...] as of this encounter (statuses as of 03/09/2023) Immunizations Name Administration Dates Next Due COVID-19 mRNA, LNP-s, No Pre serve, 2-Dose Series ([employer]) 02/20/2021,06/17/2020,05/26/2020 Covid-19, Mrna, Lnp-s, Pf, B ivalent, 30 Mcg, IM, 12 yrs and above ([employer]) 12/24/2021 Hepatitis B Vaccine, Recombi nant, Adjuvanted, [...] encounter Miscellaneous Notes * Telephone Encounter - Rosalba Sorto, DISPENSING AUDIOLOGIST - 03/09/2023 1:08 PM EST Referral received for patient to be seen for New Oncology Consult for Malignant neoplasm of esophagus Called cell but went to [facility] that was not set up. Called home number and spoke with agreed to be scheduled on 03/22 at 12:15pm with Dr. Werner Roland Will enter into EPIC as soon as closed spot opens documented in this encounter Plan of Treatment Upcoming Encounters Date Type Department Care Team (Late st Contact Info) Description 04/05/2023 11:30 AM EST Office Visit Vascular Surgery, [facility] [address] [place] [address] Brian Payton MD [address] [place], [place] [phone] 06/29/2023 8:00 AM EDT Office Visit Family Practice [facility] [address] [place] [address] Barrett Dacosta MD [address] [place] [address] 01/23/2024 11:00 AM EST Telemedicine Neurosurgery, [place] [address] [place], [place] [phone] Earle Murphy MD [address] [place] [address] Scheduled Procedures Name Priority Associated Diagnoses Date/Ti [...] patient or by statute hierarchy) Care Teams Event Organizer Relationship Specialty Start Date End Date Barrett Dacosta MD [address] [place] [address] PCP - General Family Medicine 04/11/18 documented as of this encounter
--- OUTSIDE RECORDS SUMMARY | 2023-03-27 18:32 | External Medical Summary | Summary of Care ---
Author Name Unknown Organization [facility] Address [address] [place] [place] [address] Phone [phone] Care Team Providers Care Oracle Fusion Middleware Developer Name Role Phone Barrett Dacosta MD Primary Care Provider + Reason for Referral * Evaluate & Treat - Unlimited Visits (Within 10 days (routine)) - Authorized Specialty Diagnoses / Procedures Referred By Contac t Referred To Contact Hospice and Palliative Medicine / Palliative Medicine Diagnoses Malignant neoplasm of esophagus, unspecified location (HCC) Barrett Dacosta MD [address] [place] [address] Referral ID Status Reason Start Date Expiration Date Visits Requested Visits Authorized [id number] Authorized Specialty Services Required 03/09/[phone] Question Answer Referral Priority Within 10 days (routine) Where should this appointment be scheduled? [facility] Reason for Referral: Cancer Palliative Medicine To Address: Goals of Care Is this referral for [facility] Palliative service? ([facility] Insurance Only) No Comments Goals, Symptoms. Was told by Surg onc not good candidate for surg. On ESRd. Plans to stop dialysis when symptoms severe. * Evaluate & Treat - Unlimited Visits (Within 10 days (routine)) - Authorized Specialty Diagnoses / Procedures Referred By Contac t Referred To Contact Hematology/Oncology / Hematology Oncology Diagnoses Malignant neoplasm of esophagus, unspecified location (HCC) Barrett Dacosta MD [address] [place] [address] Referral ID Status Reason Start Date Expiration Date Visits Requested Visits Authorized [id number] Authorized Specialty Services Required 03/09/[phone] Question Answer Referral Priority Within 10 days (routine) Where should this appointment be scheduled? [facility] Reason for Referral Malignant Oncology (Solid Organ Cancer) Comments Eval for palliative chemo options for esophageal CA @[facility]. Wants to discuss options * Evaluate & Treat - Unlimited Visits (Within 10 days (routine)) - Authorized Specialty Diagnoses / Procedures Referred By Contac t Referred To Contact Radiation Oncology Diagnoses Malignant neoplasm of esophagus, unspecified location (HCC) Barrett Dacosta MD [address] [place] [address] Referral ID Status Reason Start Date Expiration Date Visits Requested Visits Authorized [id number] Authorized Specialty Services Required 03/09/[phone] Question Answer Referral Priority Within 10 days (routine) Where should this appointment be scheduled? [facility] What is the preferred location to have this test performed? Non-[facility] Site Comments Eval for palliative XRT for esophageal CA @[facility]. Wants to discuss options. Reason for Visit * Reason Comments Return Visit Discuss current medi janki issues, tx, etc. 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 1 Tablet 0 03/09/2023 Active Aspirin 81 MG Oral Tablet Delayed Release Take 1 Tablet by mouth daily. 0 05/30/2022 03/09/2023 Discontinue d(Medicatio n List Clean Up) Atorvastatin Calcium 40 MG Oral Tablet (Lipitor) Take 1 Tablet by mouth in the morning. 90 Tablet 3 06/03/2022 03/09/2023 Discontinue d(Medicatio n List Clean Up) Metoprolol Succinate ER 25 MG Oral Tablet Extended Release 24 Hour (toPROL XL)Indications:Ess ential hypertension with goal blood pressure less than 140/90 12.5 mg ( half) tablet daily 45 Tablet 3 08/08/2022 03/09/2023 Discontinue d(Medicatio n List Clean Up) Allopurinol 100 MG Oral Tablet (Zyloprim)Indicati ons:Gout TAKE 2 TABLETS BY MOUTH EVERY MORNING 180 Tablet 3 01/28/2023 03/09/2023 Discontinue d(Medicatio n List Clean Up) documented as of this encounter (statuses as [...] left vertebral artery 06/03/2022 Overview: 05/26 CTA [facility] Type 2 diabetes mellitus wit h chronic [...] grade dysplasia (? Cancer--[place] [facility] [place]esophagitis, martha 4 wk. CVA 05/26 [facility]. Left sided weakness. 05/26 TTE [facility] normal EF Grade 2 Farmer Dys. Moderate AV sclerosis and calcified mitral valve--stenosis + mod MR.mild MS. No shunt. 04/24 colon-polyp tubular adenoma. Declined f/u. 2012 adenoma. 08/18 TTE-possilbe vegetation. Mild LVH History of prostate cancer 01/09/2013 Overview: S/p resection Dr Whitehead [facility] HTN, goal below 140/90 06/04/2012 Gout 06/04/2012 Overview: 07/18 indomethicin non-form documented as of this encounter (statuses as of 03/09/2023) Resolved Problems Problem Noted Date Diagnosed Date Resolved Date Cerebrovascular accident (CV A) due to thrombosis of right middle cerebral artery 09/05/2022 09/26/2022 Overview: Hx - CVA in May 2022 Glaucoma 06/03/2022 08/18/2022 End stage renal disease 03/01/2022 0310/2022 Kidney disease, chronic, sta ge IV (GFR [...] mRNA, LNP-s, No Pre serve, 2-Dose Series ([employer]) 02/20/2021,06/17/2020,05/26/2020 Covid-19, Mrna, Lnp-s, Pf, B ivalent, [...] Sign Reading Time Taken Comments Blood Pressure 106/60 03/09/2023 10:39 AM EST Pulse 82 03/09/2023 10:39 AM EST Temperature - - Respiratory Rate 14 03/09/2023 10:39 AM EST Oxygen Saturation 97% 03/09/2023 10:39 AM EST Inhaled Oxygen Concentration - - Weight - - Height - - Body Mass Index - - documented in this encounter Progress Notes * Barrett Dacosta MD - 03/09/2023 1:10 PM EST SUBJECTIVE: Ricky Cason is a 77 year old male here for Return Visit (Discuss current medical issues, tx, etc.) . Here for f/u with . Josette Hsu RN present for visit throughout. Overall pt feeling ok. Recent diagnosis confirmation of esophagea cancer. He had a telephone consult with Surgical Oncology recommended against surgery given his health status. Patient admits feelingsurprised and upset by this as had thought it would be fairly simple surgery. He is okay with not having surgery as it will be more complicated. His main symptom of his esophageal cancer now is occasional difficulty swallowing pills and food. He was doing fine earlier this week with the last 2 days have been more difficult with pills. He wants to remove as many pills as he is taking as possible. His plan is when the esophageal cancer is giving him a lot of on tolerable symptoms he will plan onstopping dialysis going on hospice. At this point he has not ready to do this. He is interested in speaking with radiation oncology andregular Oncology to see if there is any role that they would have from palliative care. He is awarethat it is not a curable cancer at this point w/out surg & XRT/chemo before hand. Some fatigue but otherwise--No fever, chills, chest pain, shortness of breath, headache, nausea, vomit, diarrhea, constipation or vision changes Back pain is somewhat controlled by tramadol he would be interested in retry in the oxycodone. He is a little has not to do this as he had severe constipation in the past requiring surgery and ostomy. Oxycodone was more helpful for his back pain. He has some oxy at home--doesn't need refil lnow. Sitting for a long time at HD is especially hard on his back pain. patient has experienced improvement in pain control and level of functioning well on oxycodone./ tramadol The narcotic will be used in combination with tolerated non pharmacologic therapy and non opiate pharacologic therapy and I have reviewed her medical record documentation for urine drug screening testing for listed and illicit drugs with the potential for abuse consistent with prescribed controlled substances. Patient has tried and failed non-drug pain management modalities and non-opioid drugs, acetaminophen, nsaids, etc. It will be used in combination with tolerated non drug therapies and non-opioid meds. Patient was assessed for potential risk of misuse, abuse, and addiction based on family and social history. Patient was counseled regarding potential side effects of opioids including risk or misuse, abuse, addiction. Patient was assessed for recent (w/in 60d) opioid use. Patient was evaluated for risk factors for opioid related harm. If identified to be at high risk for Opioid -related harm, the prescribed considered naloxone. Barrett Dacosta MD ROS: Negative except above. Past Medical History: Diagnosis Date Abnormal echocardiogram 08/19/2014 Anemia due to chronic kidney disease, on chronic dialysis (HCC) 06/03/2022 Anemia in stage 4 chronic kidney disease 02/19/2021 Aneurysm of left vertebral artery (HCC) 06/03/2022 Benign neoplasm of colon 07/20/12 COLONOSCOPY FLEXIBLE PROXIMAL DIAGNOSTIC performed by Rukhsana Gunter DO at [facility]COPY [facility],ADENOMATOUS POLYPS REPEAT COLONOSCOPY IN 5 YEARS Bilateral low back pain without sciatica 02/19/2015 Cerebrovascular accident (CVA) due to thrombosis of right middle cerebral artery ([facility]) 09/05/2022 Hx - CVA in May 2022 Constipation due to opioid therapy 03/29/2018 Diabetes mellitus with nephropathy ([facility]) 04/09/2018 Dyslipidemia, goal LDL below 100 11/06/2013 Dyslipidemia, goal LDL below 130 11/07/2013 Gout 06/04/2012 High blood pressure HTN, goal below 140/80 06/04/2012 Internal hemorrhoids 06/04/2012 Kidney disease, chronic, stage IV (GFR 15-29 ml/min) ([facility]) 02/19/2021 Malignant melanoma of face (HCC) 06/04/2012 Malignant melanoma of skin of other and unspecified parts of face MEDICATION USE AGREEMENT 02/19/2015 Microalbuminuria 04/24/2014 OA (osteoarthritis) of knee 11/06/2013 Other and unspecified hyperlipidemia Hypercholesterolemia Prediabetes 07/18/2014 Prostate cancer ([facility]) 11/13/12 marco 7 and 6 Recurrent sinus infections 04/24/2014 Status post lumbar spinal fusion 06/17/2014 06/11/14 [place] Type 2 diabetes mellitus with chronic kidney disease on chronic dialysis ([facility]) 03/01/2022 Type 2 diabetes mellitus with hemoglobin A1c goal of less than 8.0% ([facility]) 11/27/2017 Past Surgical History: Procedure Laterality Date AV ACCESS, DIRECT ANASTOMOSIS Left 02/09/2023 ARTERIOVENOUS ANASTOMOSIS OPEN DIRECT ANY SITE performed by Brian Payton MD at [place] [facility] COLONOSCOPY, DIAGNOSTIC (RECTUM) 07/20/2012 COLONOSCOPY FLEXIBLE PROXIMAL DIAGNOSTIC performed by Rukhsana T Suvock, DO at ENDOSCOPY [facility],ADENOMATOUS POLYPS REPEAT COLONOSCOPY IN 5 YEARS COLONOSCOPY, DIAGNOSTIC (RECTUM) 05/03/2018 diverticulosis sigmoid colon/biopsies show adenomatous polyps/recall 3 years/COLONOSCOPY FLEXIBLE PROXIMAL DIAGNOSTIC performed by Rukhsana Gunter DO at ENDOSCOPY [facility] COLONOSCOPY/REMOVE LESION 2009 EGD, FLEXIBLE, ENDO MUCOSAL RESECTION N/A 02/16/2023 ESOPHAGOGASTRODUODENOSCOPY (EGD), FLEXIBLE, TRANSORAL: MUCOSAL RESECTION performed by Karlee Buitrago MD at OR [facility] EGD, W/ENDOSCOPIC US N/A 01/13/2023 partially obstructing tumor GEJ/one benign appearing enlarged lymph node/biopsies show Valentin's esophagus high grade dysplasia/EGD/[place] EGD, W/ENDOSCOPIC US 02/16/2023 ESOPHAGOGASTRODUODENOSCOPY (EGD), FLEXIBLE, TRANSORAL, ENDOSCOPIC ULTRASOUND performed by Karlee Buitrago MD at OR [facility] FRAGMENT KIDNEY STONE BY SHOCK WAVE 2008? ric INJECTION LUMBAR/SACRAL 03/28/2014 INJECTION SPINE LUMBAR OR SACRAL performed by [place] Latasha Mcpherson DO at OR [facility] LAPAROSCOPY, W/ INSERT INTRAPERITONEAL CATH N/A 01/12/2022 LAPAROSCOPIC INSERTION INTRAPERITONEAL CANNULA OR CATHETER performed by Florentin Will MD at OR [facility] LUMBAR / SACRAL EPIDURAL, SINGLE LEVEL 08/08/2016 INJECTION TRANSFORAMINAL EPIDURAL LUMBAR OR SACRAL performed by [place] Latasha Mcpherson DO at OR [facility] LUMBAR / SACRAL EPIDURAL, SINGLE LEVEL 08/25/2016 INJECTION TRANSFORAMINAL EPIDURAL LUMBAR OR SACRAL performed by [place] Latasha Mcpherson DO at OR [facility] LUMBAR SPINE FUSION W/BONE GRAFT 06/11/2014 Dr Corrales MELANOMA AJCC STAGE 0 OR 1A DOCUMENTED 1999 face NEEDLE/PUNCH BIOPSY OF PROSTATE 11/06/2012 Prostate,Needle/Punch Biopsy OTHER 09/16/2022 Permacath placement for HD @[facility] [place] COLOSTOMY/SKIN LEVEL CECOSTOMY 09/09/2022 Dr Jorge [facility] [place] EXPLORATORY LAPAROTOMY CELIOTOMY W/WO BIOPSY SPX 09/09/2022 Dr Jorge [facility]. ex lap for SBO/sigmoid colostomy, removal PD catheter. 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 Physical: BP 106/60 | Pulse 82 | Resp 14 | SpO2 97% General-No apparent Distress., thin. Mild temporal wasting Head, Eyes, Ears, Nose, Throat--Normocephalic, atraumatic Neck-Supple Lymph-no lymphadenopathy Lungs-Clear to Auscultation bilaterally Cardiovascular--Regular rate & Rhythm, +s1, s2, no murmur Abdomen-soft, nontender, nondistended + bowel sounds Extremities--no edema Neuro-alert & oriented x3 walking w/cane Vasc-left wrist +thrill. No redness. (C15.9) Malignant neoplasm of esophagus, unspecified location (HCC) (primary encounter diagnosis) Plan: RADIATION/ONCOLOGY REFERRAL OP, HEMATOLOGY/ONCOLOGY REFERRAL OP, PALLIATIVE CARE REFERRAL OP, oxyCODONE HCl 5 MG Oral Tablet (Oxy IR) Discussed goals of care--comfort, improve ADLs if he can Will need f/u palliative for further discussion DNR/DNI/POLST etc -d.c allopurinol, atorvastatin, ASA, metoprolol. RBA discussed, based on his goals of care. 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 No f/u needed given above comorbidities. I spent a total of 40-54 minutes (exact time 53 mins) on the date of service in preparation, delivery, and documentation of the care provided to Ricky Cason excluding any time spent in the performance of separately billed services. (This note was completed using the dictation program Fluency Direct. As such, there may be misspellings, word substitutions, or other variations that should not change the essence of the clinical content of this encounter note.If there is need for further clarification, please direct questions to the provider listed above.) Barrett Dacosta MD documented in this encounter Nursing Notes * Dang Mota LPN - 03/09/2023 10:39 AM EST The patient has been properly identified by confirmation of name and date of . Chief Complaint Patient presents with Return Visit Discuss current medical issues, tx, etc. documented in this encounter Plan of Treatment Upcoming Encounters Date Type Department Care Team (Late st Contact Info) Description 04/05/2023 11:30 AM EST Office Visit Vascular Surgery, [facility] [address] [facility] [place] [address] Brian Payton MD [address] [place] [address] 06/29/2023 8:00 AM EDT Office Visit Family Practice [facility] [address] [facility] [place] [address] Barrett Dacosta MD [address] [facility] [place] [address] 01/23/2024 11:00 AM EST Telemedicine Neurosurgery, [place] [address] [place] [address] Earle Murphy MD [address] [place] [address] Scheduled Procedures Name Priority Associated Diagnoses Date/Ti me COLONOSCOPY, FLEXIBLE; WITH ENDOSCOPIC MUCOSAL RESECTION Recall History of colonic polyps Scheduled Referrals Name Type Priority Associated Diagnoses Orde r Schedule RADIATION/ONCOLOGY REFERRAL OP Referral Within 10 days (routine) Malignant neoplasm of esophagus, unspecified location (HCC) Ordered: 03/09/2023 HEMATOLOGY/ONCOLOGY REFERRAL OP Referral Within 10 days (routine) Malignant neoplasm of esophagus, unspecified location (HCC) Ordered: 03/09/2023 PALLIATIVE CARE REFERRAL OP Referral Within 10 days (routine) Malignant neoplasm of esophagus, unspecified location (HCC) Ordered: 03/09/2023 Health Maintenance Due Date Last Done Comments DTaP,Tdap,and Td Vaccines (3 - Td or Tdap) 11/18/2020 11/18/2010, 01/05/2010 COLONOSCOPY-EVERY 3 YRS AGES 18-100 05/03/2021 05/03/2018, 05/03/2018, 07/20/2012, Additional history exists Diabetic Foot Exam 03/01/2023 03/01/2022, 1 04/21/2020, 02/14/2020, Additional history exists HbA1c 07/13/2023 01/12/2023, 01/05/2022, 08/16/2021, Additional history exists Diabetic Eye Exam [...] as of this encounter Visit Diagnoses Diagnosis Malignant neoplasm of esophagus, unspecified location (HCC)- Primary ESRD on dialysis (HCC) End stage renal disease Status post lumbar spinal fusion Arthrodesis status 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) Other complication of colostomy or enterostomy Protein-calorie malnutrition, unspecified severity (HCC) Hemiplegia and hemiparesis following cerebral infarction affecting left non- dominant side (HCC) Hypertensive CKD, ESRD on dialysis (HCC) Unspecified hypertensive kidney disease with chronic kidney disease stage V or end stage renal disease Type 2 diabetes mellitus with chronic kidney disease on chronic dialysis, unspecified whether extermination inspector insulin use (HCC) Aneurysm of left vertebral artery (HCC) documented in this encounter Advance Directives Latest [...] Relationship Healthcare Agent Relationshi p Communication Jacklyn Casno Spouse Health Care Repr esentative (appointed verbally by patient or by statute hierarchy) Care Teams Oracle Fusion Middleware Developer Relationship Specialty Start Date End Date Barrett Dacosta MD [address] [place] [address] PCP - General Family Medicine 04/11/18 documented as of this encounter"
--- OUTSIDE RECORDS SUMMARY | 2023-03-27 18:32 | External Medical Summary | Summary of Care ---
Author Name Unknown Organization [facility] Address [address] [facility] [place] [address] Phone [phone] Care Team Providers Care Unclaimed Property Officer Name Role Phone Barrett Dacosta MD Primary Care Provider + Reason for Visit * Reason Onset Date Comments Films 03/15/2023 Encounter Details Date Type Department Care Team (Late st Contact Info) Description 03/15/2023 Telephone Radiology Film File [address] [facility] [place] [id number] Karlee Buitrago MD [address] [place] [address] Films Allergies No known active allergiesdocumented as of this encounter (statuses as of 03/15/2023) Medications Medication Sig Dispensed Refills Start Date [...] as of this encounter (statuses as of 03/15/2023) Active Problems Problem Noted Date Diagnosed Date [...] left vertebral artery 06/03/2022 Overview: 05/26 CTA [facility] Type 2 diabetes mellitus wit h chronic [...] + high grade dysplasia (? Cancer--sent to [facility] for review)/esophagitis, martha 4 wk. CVA 05/26 [facility]. Left sided weakness. 05/26 TTE [facility] normal EF Grade 2 Farmer Dys. Moderate AV sclerosis and calcified mitral valve--stenosis + mod MR.mild MS. No shunt. 04/24 colon-polyp tubular adenoma. Declined f/u. 2012 adenoma. 08/18 TTE-possilbe vegetation. Mild LVH History of prostate cancer 01/09/2013 Overview: S/p resection Dr Whitehead [facility] HTN, goal below 140/90 06/04/2012 Gout 06/04/2012 Overview: 07/18 indomethicin non-form documented as of this encounter (statuses as of 03/15/2023) Resolved Problems Problem Noted Date Diagnosed Date Resolved Date Cerebrovascular accident (CV A) due to thrombosis of right middle cerebral artery 09/05/2022 09/26/2022 Overview: Hx - CVA in May 2022 Glaucoma 06/03/2022 08/18/2022 End stage renal disease 03/01/202205/05 Kidney disease, chronic, sta ge IV (GFR [...] as of this encounter (statuses as of 03/15/2023) Immunizations Name Administration Dates Next Due COVID-19 mRNA, LNP-s, No Pre serve, 2-Dose Series ([employer]) 02/20/2021,06/17/2020,05/26/2020 Covid-19, Mrna, Lnp-s, Pf, B ivalent, [...] encounter Miscellaneous Notes * Telephone Encounter - Rukhsana Lentz OSA - 03/15/2023 8:51 AM EST [facility] Radiology/Oncology department requesting 12-29-22 to present images be pushed through PACS. [place] Authorization to Release on file. Images pushed to [facility] PACS external connection. Associated report(s) not needed. documented in this encounter Plan of Treatment Upcoming Encounters Date Type Department Care Team (Late st Contact Info) Description 03/22/2023 10:30 AM EST Office Visit Palliative Medicine [facility] [address] [place] [address] Anne-Marie Manjarrez MD [address] [place] [id number] 03/22/2023 12:15 PM EST Office Visit Hematology/Oncology [facility] [address] [place] [address] Werner Roland MD [address] [place] [address] 04/05/2023 11:30 AM EST Office Visit Vascular Surgery, [facility] [address] [place] [address] Brian Payton MD [address], [place] [phone] 06/29/2023 8:00 AM EDT Office Visit Family Practice [facility] [address] [place] [address] Barrett Dacosta MD [address] [place] [address] 01/23/2024 11:00 AM EST Telemedicine Neurosurgery, [place] [address], [place] [phone] Earle Murphy MD [address] [place] [address] Scheduled Procedures Name Priority Associated [...] patient or by statute hierarchy) Care Teams Unclaimed Property Officer Relationship Specialty Start Date End Date Barrett Dacosta MD [address] [place] [address] PCP - General Family Medicine 04/11/18 documented as of this encounter
--- OUTSIDE RECORDS SUMMARY | 2023-03-27 18:32 | External Medical Summary | Summary of Care ---
Author Name Unknown Organization [facility] Address [address] [place] [address] Phone [phone] Care Team Providers Care Culinary Director Name Role Phone Barrett Dacosta MD Primary Care Provider + Reason for Visit * Reason Comments NEW PATIENT * Evaluate & Treat - Unlimited Visits (Within 10 days (routine)) - Authorized Specialty Diagnoses / Procedures Referred By Contac t Referred To Contact Hospice and Palliative Medicine / Palliative Medicine Diagnoses Malignant neoplasm of esophagus, unspecified location (HCC) Barrett Dacosta MD [address] [place] [address] Referral ID Status Reason Start Date Expiration Date Visits Requested Visits Authorized [id number] Authorized Specialty Services Required 03/09/2023 999 [id number] Encounter Details Date Type Department Care Team (Late st Contact Info) Description 03/22/2023 10:30 AM EST Office Visit Palliative Medicine [facility] [address] [place] [address] Anne-Marie Manjarrez MD [address] [place] [id number] Malignant neoplasm of esophagus, unspecified location (HCC)*; ESRD on dialysis (HCC); Constipation due to pain medication; Encounter for palliative care Allergies No known active allergiesdocumented as of [...] syndrome) 09/05/2022 Atrioventricular block, Mobitz type 1, Edward h 09/05/2022 1st degree AV block 09/05/2022 Anemia due to chronic kidney disease, on chronic dialysis 06/03/2022 Aneurysm of left vertebral artery 06/03/2022 Overview: 05/26 CTA [facility] Type 2 diabetes mellitus wit h [...] grade dysplasia (? Cancer--[place] [facility] [place]esophagitis, martha 4 wk. CVA 05/26 [facility]. Left sided weakness. 05/26 TTE [facility] normal EF Grade 2 Farmer Dys. Moderate AV sclerosis and calcified mitral valve--stenosis + mod MR.mild MS. No shunt. 04/24 colon-polyp tubular adenoma. Declined f/u. 2012 adenoma. 08/18 TTE-possilbe vegetation. Mild LVH History of prostate cancer 01/09/2013 Overview: S/p resection Dr Whitehead [facility] HTN, goal below 140/90 06/04/2012 Gout 06/04/2012 [...] Overview: Acute. Nevus 09/19/2014 10/12/2016 Abnormal echocardiogram 08/19/201409/03 Recurrent sinus infections 04/24/2014 0 10/12/2016 Microalbuminuria [...] Hyperlipidemia with target LDL less than 130 06/04/201 3 11/06/2013 Overview: ICD-10 update of inactive term Malignant melanoma of face 06/04/2012 0 10/12/2016 Internal hemorrhoids 06/04/2012 017 documented as of this encounter (statuses as of 03/22/2023) Immunizations Name Administration Dates Next Due COVID-19 mRNA, LNP-s, No Pre serve, 2-Dose Series (Appriss) 02/20/2021,06/17/2020,05/26/2020 Covid-19, Mrna, Lnp-s, Pf, B ivalent, [...] Current Snuff Tobacco Cessation:Ready to Q uit: No; Counseling Given: No Comments:half can per day Alcohol Use Standard [...] Time Taken Comments Blood Pressure 122/66 03/22/2023 10:21 AM EST Pulse 79 03/22/2023 10:21 AM EST Temperature 35.3 C (95.5 F) 03/22/2023 1 0:21 AM EST Respiratory Rate 16 03/22/2023 10:2 1 AM EST Oxygen Saturation 97% 03/22/2023 10: 21 AM EST Inhaled Oxygen Concentration - - Weight 63.5 kg (139 lb 14.4 oz) 024 10:21 AM EST Height - - Body Mass Index 22.58 02/16/2023 12:15 PM EST documented in this encounter Patient Instructions * Patient Instructions* Edith Allison LPN - 03/22/2023 10:14 AM EST Our Palliative Medicine Clinic is available Monday through Monday during business hours, so we are unavailable on weekends and holidays. Please ensure that you request refills early in the week as itmay take 1-2 days for them to be addressed and filled, for authorizations to be approved, or for the pharmacy to order them if needed. You can contact our office at [phone], which is our clinic in [place], or you can message us on [employer]. If you have an emergency outside of these hours, we recommend calling your primary care clinic, Oncology office, or going to the ER if you have a medical emergency. documented in this encounter Progress Notes * Anne-Marie Manjarrez MD - 03/22/2023 10:30 AM EST Images from the original note were not included. Palliative Medicine Outpatient Consult Note [facility] Palliative Medicine Outreach [address] [place] [address] Name: Ricky Cason Date: 03/22/2023 Referring Provider: Barrett Dacosta MD Reason for Consult: Goals of care; Pain and symptom management Patient accompanied by patients , history obtained from pt and HPI: Ricky Cason is a 77 year old male with a primary diagnosis of esophageal cancer, as well as ESRD on dialysis. He was diagnosed with esophageal cancer, T2N0M0, saw Dr Olivas who explainedthat typically the plan would be chemo and radiation and then esophagectomy, which would then require a feeding tube. Per that note he said he was not interested in chemo / surgery / radiation, wouldbe OK with doing dialysis. Referred to palliative care for goals of care and symptom management. He had a very rough , at times has wanted to stop everything - started dialysis 01/25 fromtaking too much ibuprofen, he had a CVA in 05/26, bowel blockage from taking opioids so had a colon resection, now has colostomy in 09/2022, hip surgery in fall 2022, and then esophageal cancer was diagnosed after that. He was told it was pre-cancer but then reports after a procedure it was cancerous. He is frustrated with all his appointments and doctors. Goes to dialysis MWF at 5am, but lives 1 hour away. Likes to goldman and fish but can't do any of that. 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 All other systems negative. Functional Status: - Palliative Performance Scale: 80% - Activities of Daily Living: (bolded items indicate areas of independence) 6/6 BADL (transfer, toilet, continence, bathe, dress self, feed self) 2/7 IADL (meds, transport, telephone, shop, housekeeping, meal prep, money management) - Ambulates: w/cane Patient Active Problem List Diagnosis Code HTN, goal below 140/90 I10 Gout M10.9 History of prostate cancer Z85.46 Routine general medical examination at a health care facility Z00.00 Status post lumbar spinal fusion Z98.1 MEDICATION USE AGREEMENT [id number] Type 2 diabetes mellitus with hemoglobin A1c goal of less than 8.0% ([facility]) E11.9 Persistent proteinuria R80.1 Primary open-angle glaucoma, bilateral, indeterminate stage H40.1134 Type 2 diabetes mellitus with chronic kidney disease on chronic dialysis ([facility]) E11.22, N18.6, Z99.2 Calcification of aorta ([facility]) I70.0 ESRD on dialysis ([facility]) N18.6, Z99.2 Anemia due to chronic kidney disease, on chronic dialysis ([facility]) N18.6, D63.1, Z99.2 Aneurysm of left vertebral artery ([facility]) I72.6 SSS (sick sinus syndrome) ([facility]) I49.5 Atrioventricular block, Mobitz type 1, Wenckebach I44.1 1st degree AV block I44.0 Colostomy status ([facility]) Z93.3 Medical home patient encounter Z00.8 Hypertensive CKD, ESRD on dialysis ([facility]) I12.0, N18.6, Z99.2 Altered bowel elimination due to intestinal ostomy ([facility]) K94.19 AVF (arteriovenous fistula) ([facility]) I77.0 Protein-calorie malnutrition ([facility]) E46 Hemiplegia and hemiparesis following cerebral infarction affecting left non- dominant side ([facility]) I69.354 Past Surgical History: Procedure Laterality Date AV ACCESS, DIRECT ANASTOMOSIS Left 02/09/2023 ARTERIOVENOUS ANASTOMOSIS OPEN DIRECT ANY SITE performed by Brian Payton MD at OR [facility] COLONOSCOPY, DIAGNOSTIC (RECTUM) 07/20/2012 COLONOSCOPY FLEXIBLE PROXIMAL DIAGNOSTIC performed by Rukhsana Gunter DO at [facility]OSCOPY [facility],ADENOMATOUS POLYPS REPEAT COLONOSCOPY IN 5 YEARS COLONOSCOPY, DIAGNOSTIC (RECTUM) 05/03/2018 diverticulosis sigmoid colon/biopsies show adenomatous polyps/recall 3 years/COLONOSCOPY FLEXIBLE PROXIMAL DIAGNOSTIC performed by Rukhsana Gunter DO at ENDOSCOPY [facility] COLONOSCOPY/REMOVE LESION 2009 EGD, FLEXIBLE, ENDO MUCOSAL RESECTION N/A 02/16/2023 ESOPHAGOGASTRODUODENOSCOPY (EGD), FLEXIBLE, TRANSORAL: MUCOSAL RESECTION performed by Karlee Buitrago MD at OR [facility] EGD, W/ENDOSCOPIC US N/A 01/13/2023 partially obstructing tumor GEJ/one benign appearing enlarged lymph node/biopsies show Valentin's esophagus high grade dysplasia/EGD/[place] EGD, W/ENDOSCOPIC US 02/16/2023 ESOPHAGOGASTRODUODENOSCOPY (EGD), FLEXIBLE, TRANSORAL, ENDOSCOPIC ULTRASOUND performed by Karlee Buitrago MD at OR [facility] FRAGMENT KIDNEY STONE BY SHOCK WAVE 2008? ric INJECTION LUMBAR/SACRAL 03/28/2014 INJECTION SPINE LUMBAR OR SACRAL performed by Vicente Mcpherson, at OR [facility] LAPAROSCOPY, W/ INSERT INTRAPERITONEAL CATH N/A 01/12/2022 LAPAROSCOPIC INSERTION INTRAPERITONEAL CANNULA OR CATHETER performed by Florentin Will MD at OR [facility] LUMBAR / SACRAL EPIDURAL, SINGLE LEVEL 08/08/2016 INJECTION TRANSFORAMINAL EPIDURAL LUMBAR OR SACRAL performed by Olustee Latasha Mcpherson DO at OR [facility] LUMBAR / SACRAL EPIDURAL, SINGLE LEVEL 08/25/2016 INJECTION TRANSFORAMINAL EPIDURAL LUMBAR OR SACRAL performed by Olustee Latasha Mcpherson, at OR [facility] LUMBAR SPINE FUSION W/BONE GRAFT 06/11/2014 Dr Corrales MELANOMA AJCC STAGE 0 OR 1A DOCUMENTED 1999 face NEEDLE/PUNCH BIOPSY OF PROSTATE 11/06/2012 Prostate,Needle/Punch Biopsy OTHER 09/16/2022 Permacath placement for HD @[facility] MS COLOSTOMY/SKIN LEVEL CECOSTOMY 09/09/2022 Dr Jorge [facility] MS EXPLORATORY LAPAROTOMY CELIOTOMY W/WO BIOPSY SPX 09/09/2022 Dr Jorge [facility]. ex lap for SBO/sigmoid colostomy, removal PD catheter. MS REVJ TOT HIP ARTHRP FEM ONLY W/WO ALGRFT Right 12/03/2022 PROSTATECTOMY, RETROPUBIC RADICAL, LAP 01/07/2013 ROBOTIC LAPAROSCOPIC PROSTATECTOMY RETROPUBIC RADICAL performed by Cordell Whitehead MD at OR [facility] REMOVE CATARACT, INSERT LENS PROSTH 2007 bilateral Family History Problem Relation Age of Onset Hypertension Father Hypertension Mother Hypertension Brother X2 Hypertension Sister X6 Heart Disorder Mother [place] Heart Disorder Father [place] Heart Disorder Brother X2 KS Family Status Relation Status Mo at age 88 stroke Fa at age 60s heart disease Sis Alive Sis heart disease Sis MS Sis Alive Sis Alive Bro Alive Bro heart disease Son Alive Bro (Not Specified) Sis (Not Specified) Bro (Not Specified) Social History Socioeconomic History Marital status: Number of children: 1 Occupational History 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 Employer: [employer] Comment: [employer] Tobacco Use Smoking status: [...] grandkids Other Topics Concern Service Yes Comment: Acision reserves Blood Transfusions No Caffeine Concern No Occupational Exposure No Hobby Hazards No Sleep Concern No Stress Concern No Weight Concern No Special Diet No Exercise Yes Seat Belt Yes Social History Narrative Switching to oil 2019 Social Determinants of Health Food Insecurity: No Food Insecurity (09/27/2022) Hunger Vital Sign Worried About Running Out of Food in the Last Year: Never true Ran Out of Food in the Last Year: Never true Family Support: Well supported by Children: 1 son, 1hr away Relevant Medications: Current Outpatient Medications Medication Sig Dispense Refill [...] No current facility-administered medications for this visit. Allergies: Patient has no known allergies. PHYSICAL EXAMINATION: Constitutional: BP 122/66 | Pulse 79 | Temp 35.3 C (95.5 F) | Resp 16 | Wt 63.5 kg (139 lb 14.4oz) | SpO2 97% | BMI 22.58 kg/m | BSA 1.72 m , no acute distress, chronically ill, pleasant andcooperative, breathing ambient air comfortably HENT: normocephalic, atraumatic. Eyes: anicteric, sclera and conjunctiva normal. Neck: no stridor Chest: normal respiratory effort Abdominal: nondistended Extremities: no edema, no clubbing, no cyanosis Neuro: alert, oriented to person, place, and time Psych: normal mood and affect Data Review: External notes reviewed: Surgery notes reviewed Lab / Imaging Results: imaging reviewed History obtained from: pt and Discussion with other team members: d/w Dr Roland Decision-making Capacity: Does Patient have Decisional Capacity? yes Does Patient have a Healthcare Agent? Yes, Discussion with Patient & Family: Met with patient and Introduced role of Outpatient Palliative Medicine team and reviewed symptoms as above. Reviewed patient's/family's understanding of current medical situation. He says he is unsure at times what he wants to do - thinks he may be OK with chemo or radiation if it helped, but does not wantto get surgery after hearing what it would be like He knows if he stopped dialysis, he would pass away in 7-10 days Discussed ACP as below Advanced Care Planning: AD: n/a Asked permission to discuss ACP Reviewed 3 pathways of care - full vs limited vs comfort. He is ok with limited tx for now, but if declines wants to be comfortable. Goal is to pass away at home. Reviewed CPR and poor success rates in setting of serious illness. He is clear he is a DNR He is ok with LIMITED tx He is ok with abx for comfort Does not want artificial nutrition or IV hydration POLST completed, original given to patient, copy taken to be put into EMR under ACP docs but also scanned into Chart Review --> Scans ASSESSMENT/PLAN: Ricky Cason is a/an 77 year old male referred for consultation to Palliative Medicine with the primary diagnosis of: Esophageal cancer ESRD on dialysis Hx of bowel obstruction with colostomy formation Chronic back pain s/p lumbar spinal fusion, on Tramadol Hx of prostate CA Goals of care - hear from various doctors about options for esophageal ca, if declines, wants to becomfortable DNR/DNI if admitted Recommendations: They are still gathering opinions from all - Dr Luan keller is later today and meeting with [facility] on . Will plan for our nursing staff to call them on Mon to check in. If he has made his decisions, we can hold off on further scheduling and leave things PRN. If he needs help discussing what to do, we can schedule him for 2 wees time at . If he does start chemo or radiation, we can book in 1 mo to see how he is doing. POLST to go on refrigerator Thank you for this consult. We appreciate the opportunity to take part in the care of your patient. Note routed back to referring provider and PCP. I spent a total of Greater than 55 mins (exact time 62 mins) on the date of service in preparation,delivery, and documentation of the care provided to Ricky Cason excluding any time spent in theperformance of separately billed services. Anne-Marie Manjarrez MD Palliative Medicine Physician [facility] Office: [phone] 03/22/2023 * Edith Allison LPN - 03/22/2023 10:17 AM EST NEW Palliative Visit Has with him today Pain: no cancer pain-has chronic back pain Last BM: has a colostomy. Has liquid Senna and a glass of miralax daily Sleeping is sporadic-if has to get up to empty colostomy bag Eating and drinking "okay", but everything he eats goes "right through him" Doesn't like to eat before appts, so hasn't eaten since 2pm yesterday No N/V Other issues: documented in this encounter Plan of Treatment Upcoming Encounters Date Type Department Care Team (Late st Contact Info) Description 03/22/2023 12:15 PM EST Office Visit Hematology/Oncology [facility] [place] [address] [place], [place] [address] Werner Roland MD [address] [facility] [place], [place] [address] 03/29/2023 9:00 AM EST Scheduled Telephone Palliative Medicine, [facility] [address] [facility] 5th [place] [address] Fl, Nurse Palliative Medicine [facility] [address] [place] [address] 04/05/2023 11:30 AM EST Office Visit Vascular Surgery, [facility] [address] [facility] [place] [address] Brian Payton MD [address] [place] [address] 06/29/2023 8:00 AM EDT Office Visit Family Practice [facility] [address] [facility] [place] [address] Barrett Dacosta MD [address] [place] [address] 01/23/2024 11:00 AM EST Telemedicine Neurosurgery, [place] [address] [place] [address] Earle Murphy MD [address] [place], [place] [id number] Scheduled Procedures Name Priority Associated Diagnoses Date/Ti me COLONOSCOPY, FLEXIBLE; WITH ENDOSCOPIC MUCOSAL RESECTION Recall History of colonic polyps Scheduled Referrals Name Type Priority Associated Diagnoses Orde r Schedule PALLIATIVE CARE REFERRAL OP Referral Within 10 [...] on dialysis (HCC) End stage renal disease Constipation due to pain medication Other constipation Encounter for palliative care documented in this encounter Advance Directives Latest [...] patient or by statute hierarchy) Care Teams Culinary Director Relationship Specialty Start Date End Date Barrett Dacosta MD [address] [place] [address] PCP - General Family Medicine 04/11/18 documented as of this encounter
--- OUTSIDE RECORDS SUMMARY | 2023-03-27 18:33 | External Medical Summary | Summary of Care ---
Author Name Unknown Organization [facility] Address [address] [place] [address] Phone [phone] Care Team Providers Care Psychosocial Rehabilitation Counselor Name Role Phone Barrett Dacosta MD Primary Care Provider + Reason for Visit * Reason Comments Post-Op Encounter Details Date Type Department Care Team (Late st Contact Info) Description 03/08/2023 11:50 AM EST Office Visit Vascular Surgery, [facility] [address] [facility] [place] [address] Brian Payton MD [address] [place] [address] ESRD on dialysis ([facility])*; AVF (arteriovenous fistula) ([facility]) Allergies No known active allergiesdocumented as of this encounter (statuses as of 03/08/2023) Medications Medication Sig Dispensed Refills Start Date End Date Status Latanoprost 0.005 % Ophthalmic Solution (Xalatan) Instill 1 Drop into both eyes at bedtime. 0 05/27/2020 Active Acetaminophen 325 MG Oral Tablet Take 1 Tablet by mouth every 6 hours as needed. 0 Active Aspirin 81 MG Oral Tablet Delayed Release Take 1 Tablet by mouth daily. 0 05/30/2022 Active Belinda-Moose Oral Tablet Take 1 Tablet by mouth in the morning. 0 04/19/2022 Active Atorvastatin Calcium 40 MG Oral Tablet (Lipitor) Take 1 Tablet by mouth in the morning. 90 Tablet 3 06/03/2022 Active Metoprolol Succinate ER 25 MG Oral Tablet Extended Release 24 Hour (toPROL XL)Indications:Ess ential hypertension with goal blood pressure less than 140/90 12.5 mg ( half) tablet daily 45 Tablet 3 08/08/2022 Active Torsemide 100 MG Oral Tablet (Demadex) [...] 1 Capsule before bedtime. 0 01/23/2023 Active Allopurinol 100 MG Oral Tablet (Zyloprim)Indicati ons:Gout TAKE 2 TABLETS BY MOUTH EVERY MORNING 180 Tablet 3 01/28/2023 Active Sevelamer Carbonate 800 MG Oral Tablet (Renvela) TAKE 1 TABLET BY MOUTH THREE TIMES A DAY WITH MEALS 0 01/31/2023 Active Azithromycin 250 MG Oral Tablet (Zithromax Z-James) Take two tablets by mouth on first day, then 1 tablet daily until gone 6 Tablet 0 02/06/2023 03/08/2023 Discontinued (Medication List Clean Up) documented as of this encounter (statuses as of 03/08/2023) Active Problems Problem Noted Date Diagnosed Date AVF (arteriovenous fistula) 03/08/2023 Hypertensive CKD, ESRD on dialysis 12/16/2022 Altered bowel elimination due to intestinal osto my 12/16/2022 Medical home patient encounter 09/28/2022 Colostomy status 09/26/2022 Overview: Sigmoid colostomy by Dr. Joreg on 09/09/22 SSS (sick sinus syndrome) 09/05/2022 Atrioventricular block, Mobitz type 1, Wenckebac h 09/05/2022 1st degree AV block 09/05/2022 Anemia due to chronic kidney disease, on chronic dialysis 06/03/2022 Aneurysm of left vertebral artery 06/03/2022 Overview: 05/26 CTA [facility] Type 2 diabetes mellitus wit h chronic kidney disease on chronic dialysis 03/01/2022 Calcification of aorta 03/01/2022 ESRD on dialysis 03/01/2022 Primary open-angle glaucoma, bilateral, indeterm inate stage 02/14/2020 Persistent proteinuria 04/18/2018 Type 2 diabetes mellitus wit h hemoglobin A1c goal of less than 8.0% 11/27/2017 MEDICATION USE AGREEMENT 02/19/2015 Status post lumbar spinal fusion 06/17/2014 Overview: 06/11/14 [place]tti Routine general medical exam ination at a health care facility 04/24/2014 Overview: 01/26 EGD gastro-esoph mass PATH: 11/26 fall, right hip frx. 12/26 EGD + high grade dysplasia (? Cancer--sent to [facility] for review)/esophagitis, martha 4 wk. CVA 05/26 [facility]. Left sided weakness. 05/26 TTE [facility] normal EF Grade 2 Farmer Dys. Moderate AV sclerosis and calcified mitral valve--stenosis + mod MR.mild MS. No shunt. 04/24 colon-polyp tubular adenoma. Declined f/u. 2012 adenoma. 08/18 TTE-possilbe vegetation. Mild LVH History of prostate cancer 01/09/2013 Overview: S/p resection Dr Whitehead [facility] HTN, goal below 140/90 06/04/2012 Gout 06/04/2012 Overview: 07/18 indomethicin non-form documented as of this encounter (statuses as of 03/08/2023) Resolved Problems Problem Noted Date Diagnosed Date Resolved Date Cerebrovascular accident (CV A) due to thrombosis of right middle cerebral artery 09/05/2022 09/26/2022 Overview: Hx - CVA in May 2022 Glaucoma 06/03/2022 08/18/2022 End stage renal disease 03/01/2022 03/10/2022 Kidney disease, chronic, sta ge IV (GFR [...] as of this encounter (statuses as of 03/08/2023) Immunizations Name Administration Dates Next Due COVID-19 mRNA, LNP-s, No Pre serve, 2-Dose Series ([employer]) 02/20/2021,06/17/2020,05/26/2020 Covid-19, Mrna, Lnp-s, Pf, B ivalent, 30 Mcg, IM, 12 yrs and above ([employer]) 12/24/2021 Hepatitis B Vaccine, Recombi nant, Adjuvanted, [...] Sign Reading Time Taken Comments Blood Pressure 116/58 03/08/2023 11:33 AM EST Pulse 88 03/08/2023 11:33 AM EST Temperature 36.3 C (97.3 F) 03/08/2023 11:[address] Respiratory Rate - - Oxygen Saturation - - Inhaled Oxygen Concentration - - Weight 60.1 kg (132 lb 9.6 oz) 03/08/2023 11:33 AM EST Height - - Body Mass Index 21.4 02/16/2023 12:15 PM EST documented in this encounter Progress Notes * Elmer Bhatt PA-C - 03/08/2023 11:50 AM EST Date of Service: 03/08/2023 11:35 AM Ricky Cason is a 77 year old male. Patient being seen in consultation at the request of Barrett Dacosta MD Chief Complaint: Post op visit S/P creation of LEFT RC AVF on 02/09/[address] Payton Patient had EGD 02/16/23, revealed grade T2N0M0 of the distal esophagus Seen, via TeleMed, by Dr Olivas Patient declined chemo, radiation and surgery (esophagogastrectomy) From an AVF standpoint, incision has healed well. 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 Li will not do ostomy reversal, now that pt is with a new diagnosis of esophageal cancer. Culture of peritoneal fluid grew pseudomonas Patient discharged on 3 wks of antibiotics (Levaquin), end date of 10/03/22 Patient receives HD MWF, via RIJ TDC (inserted 09/16/[address] Miller) @ [facility] Current issues with TDC: No Patient is RIGHT handed No prior ICD/PPM No chronic pain/numbness of fingers/hands/arms He does have residual LUE/LLE weakness, from his stroke Pt broke his RIGHT hip in Nov, underwent ORIF @ [facility] 12/03/22 Dr. Srikanth Quan, [facility], is patient's Haz Tech Current Outpatient Medications Medication Sig Dispense Refill Latanoprost 0.005 % Ophthalmic Solution (Xalatan) Instill 1 Drop into both eyes at bedtime. Acetaminophen 325 MG Oral Tablet Take 1 Tablet by mouth every 6 hours as needed. Aspirin 81 MG Oral Tablet Delayed Release Take 1 Tablet by mouth daily. Belinda-Moose Oral Tablet Take 1 Tablet by mouth in the morning. Atorvastatin Calcium 40 MG Oral Tablet (Lipitor) Take 1 Tablet by mouth in the morning. 90 Tablet 3 Metoprolol Succinate ER 25 MG Oral Tablet Extended Release 24 Hour (toPROL XL) 12.5 mg ( half) tablet daily 45 Tablet 3 Torsemide 100 MG Oral Tablet (Demadex) Take [...] at noon and 1 Capsule before bedtime. Allopurinol 100 MG Oral Tablet (Zyloprim) TAKE 2 TABLETS BY MOUTH EVERY MORNING 180 Tablet 3 Azithromycin 250 MG Oral Tablet (Zithromax Z-James) Take two tablets by mouth on first day, then 1 tablet daily until gone 6 Tablet 0 Sevelamer Carbonate 800 MG Oral Tablet (Renvela) TAKE 1 TABLET BY MOUTH THREE TIMES A DAY WITH MEALS No current facility-administered medications for this visit. Review of patient's allergies indicates: No Known Allergies Patient Active Problem List Diagnosis Code HTN, goal below 140/90 I10 Gout M10.9 History of prostate cancer Z85.46 Routine general medical examination at a health care facility Z00.00 Status post lumbar spinal fusion Z98.1 MEDICATION USE AGREEMENT [id number] Type 2 diabetes mellitus with hemoglobin A1c goal of less than 8.0% ([facility]) E11.9 Persistent proteinuria R80.1 Primary open-angle glaucoma, bilateral, indeterminate stage H40.1134 Type 2 diabetes mellitus with chronic kidney disease on chronic dialysis ([facility]) E11.22, N18.6, Z99.2 Calcification of aorta ([facility]) I70.0 ESRD on dialysis ([facility]) N18.6, Z99.2 Anemia due to chronic kidney disease, on chronic dialysis ([facility]) N18.6, D63.1, Z99.2 Aneurysm of left vertebral artery ([facility]) I72.6 SSS (sick sinus syndrome) ([facility]) I49.5 Atrioventricular block, Mobitz type 1, Wenckebach I44.1 1st degree AV block I44.0 Colostomy status ([facility]) Z93.3 Medical home patient encounter Z00.8 Hypertensive CKD, ESRD on dialysis ([facility]) I12.0, N18.6, Z99.2 Altered bowel elimination due to intestinal ostomy ([facility]) K94.19 Past Medical History: Diagnosis Date Abnormal echocardiogram 08/19/2014 Anemia due to chronic kidney disease, on chronic dialysis ([facility]) 06/03/2022 Anemia in stage 4 chronic kidney disease 02/19/2021 Aneurysm of left vertebral artery ([facility]) 06/03/2022 Benign neoplasm of colon 07/20/12 COLONOSCOPY FLEXIBLE PROXIMAL DIAGNOSTIC performed by Rukhsana Gunter DO at [facility],ADENOMATOUS POLYPS REPEAT COLONOSCOPY IN 5 YEARS Bilateral low back pain without sciatica 02/19/2015 Cerebrovascular accident (CVA) due to thrombosis of right middle cerebral artery ([facility]) 09/05/2022 Hx - CVA in May 2022 Constipation due to opioid therapy 03/29/2018 Diabetes mellitus with nephropathy ([facility]) 04/09/2018 Dyslipidemia, goal LDL below 100 11/06/2013 Dyslipidemia, goal LDL below 130 11/07/2013 Gout 06/04/2012 High blood pressure HTN, goal below 140/80 06/04/2012 Internal hemorrhoids 06/04/2012 Kidney disease, chronic, stage IV (GFR 15-29 ml/min) ([facility]) 02/19/2021 Malignant melanoma of face ([facility]) 06/04/2012 Malignant melanoma of skin of other and unspecified parts of face MEDICATION USE AGREEMENT 02/19/2015 Microalbuminuria 04/24/2014 OA (osteoarthritis) of knee 11/06/2013 Other and unspecified hyperlipidemia Hypercholesterolemia Prediabetes 07/18/2014 Prostate cancer (HCC) 11/13/12 marco 7 and 6 Recurrent sinus infections 04/24/2014 Status post lumbar spinal fusion 06/17/2014 06/11/14 [place]oretti Type 2 diabetes mellitus with chronic kidney disease on chronic dialysis (HCC) 03/01/2022 Type 2 diabetes mellitus with hemoglobin A1c goal of less than 8.0% (HCC) 11/27/2017 Past Surgical History: Procedure Laterality Date AV ACCESS, DIRECT ANASTOMOSIS Left 02/09/2023 ARTERIOVENOUS ANASTOMOSIS OPEN DIRECT ANY SITE performed by Brian Payton MD at OR [facility] COLONOSCOPY, DIAGNOSTIC (RECTUM) 07/20/2012 COLONOSCOPY FLEXIBLE PROXIMAL DIAGNOSTIC performed by Rukhsana Gunter DO at ENDOSCOPY [facility],ADENOMATOUS POLYPS REPEAT COLONOSCOPY IN 5 YEARS COLONOSCOPY, DIAGNOSTIC (RECTUM) 05/03/2018 diverticulosis sigmoid colon/biopsies show adenomatous polyps/recall 3 years/COLONOSCOPY FLEXIBLE PROXIMAL DIAGNOSTIC performed by Rukhsana Gunter DO at ENDOSCOPY [facility] COLONOSCOPY/REMOVE LESION 2009 EGD, FLEXIBLE, ENDO MUCOSAL RESECTION N/A 02/16/2023 ESOPHAGOGASTRODUODENOSCOPY (EGD), FLEXIBLE, TRANSORAL: MUCOSAL RESECTION performed by Karlee Buitrago MD at OR [facility] EGD, W/ENDOSCOPIC US N/A 01/13/2023 partially obstructing tumor GEJ/one benign appearing enlarged lymph node/biopsies show Valentin's esophagus high grade dysplasia/EGD/[place] EGD, W/ENDOSCOPIC US 02/16/2023 ESOPHAGOGASTRODUODENOSCOPY (EGD), FLEXIBLE, TRANSORAL, ENDOSCOPIC ULTRASOUND performed by Karlee Buitrago MD at OR [facility] FRAGMENT KIDNEY STONE BY SHOCK WAVE 2008? ric INJECTION LUMBAR/SACRAL 03/28/2014 INJECTION SPINE LUMBAR OR SACRAL performed by Vicente Mcpherson DO at OR [facility] LAPAROSCOPY, W/ INSERT INTRAPERITONEAL CATH N/A 01/12/2022 LAPAROSCOPIC INSERTION INTRAPERITONEAL CANNULA OR CATHETER performed by Florentin Will MD at OR [facility] LUMBAR / SACRAL EPIDURAL, SINGLE LEVEL 08/08/2016 INJECTION TRANSFORAMINAL EPIDURAL LUMBAR OR SACRAL performed by Vicente Mcpherson DO at OR [facility] LUMBAR / SACRAL EPIDURAL, SINGLE LEVEL 08/25/2016 INJECTION TRANSFORAMINAL EPIDURAL LUMBAR OR SACRAL performed by Vicente Mcpherson DO at OR [facility] LUMBAR SPINE FUSION W/BONE GRAFT 06/11/2014 Dr Corrales MELANOMA AJCC STAGE 0 OR 1A DOCUMENTED 1999 face NEEDLE/PUNCH BIOPSY OF PROSTATE 11/06/2012 Prostate,Needle/Punch Biopsy OTHER 09/16/2022 Permacath placement for HD @[facility] TX COLOSTOMY/SKIN LEVEL CECOSTOMY 09/09/2022 Dr Jorge [facility] TX EXPLORATORY LAPAROTOMY CELIOTOMY W/WO BIOPSY SPX 09/09/2022 Dr Jorge [facility]. ex lap for SBO/sigmoid colostomy, removal PD catheter. TX REVJ TOT HIP ARTHRP FEM ONLY W/WO ALGRFT Right 12/03/2022 PROSTATECTOMY, RETROPUBIC RADICAL, LAP 01/07/2013 ROBOTIC LAPAROSCOPIC PROSTATECTOMY RETROPUBIC RADICAL performed by Cordell Whitehead MD at OR [facility] REMOVE CATARACT, INSERT LENS PROSTH 2007 bilateral Family History Problem Relation Age of Onset Hypertension Father Hypertension Mother Hypertension Brother X2 Hypertension Sister X6 Heart Disorder Mother RI Heart Disorder Father RI Heart Disorder Brother X2 RI Social History Socioeconomic History Marital status: Spouse name: Not on file Number of children: 1 Years of education: Not on file Highest education level: Not on file Occupational History 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 GENERAL MULTI-SYSTEM PHYSICAL EXAM: VITAL SIGNS: There were no vitals taken for this visit. GENERAL MULTI-SYSTEM PHYSICAL EXAM:GENERAL: Normal grooming habits, no acute distress, and appears stated age. NECK: No masses and Normal Thyroid. RESPIRATORY: respiratory effort normal and breath sounds normal. CHEST: RIJ TDC, covered with DSD CARDIOVASCULAR: no heart murmurs, no edema, and no varicosities. GASTROINTESTINAL: no tenderness, protuberant, and abdominal aorta not palpable. LYMPHATIC: cervical lymph nodes normal and inguinial lymph nodes normal. SKIN: no ulcers, no rash, no induration, capillary refill normal, and no dependent rubor. PSYCHIATRIC: orientation to time, place and person normal and recent and remote memory normal. EYES: conjunctivae normal, eye lids normal, pupils normal, and irises normal. NEUROLOGIC: Cranial nerves intact, Motor function intact, and Sensory exam intact LEFT AVF: incision healed, small incisional scab, strong bruit/thrill, no finger/hand tissue breakdown PULSE SCALE: Carotid Right:----Bruit: No Left:----Bruit: No Radial Right: 3 Left: 0 Posterior Tibial Right: 2 Left: 2 PULSE SCALE: 4=Aneurysmal; 3=Normal; 2=Diminished; 1=Barely Palpable; 0=Absent DIAGNOSTIC STUDIES: 11/22/2022 Pre op HD Access Duplex: No central vein DVT R cephalic vein measures: Proximal upper arm 5.3 mm Mid-upper Arm 5.8 mm Antecubital fossa 6.4 mm Mid-forearm 4.0 mm Wrist 4.0 mm R basilic vein measures: Proximal upper arm 3.2 mm Mid-upper Arm 4.9 mm Antecubital fossa 4.0 mm R brachial artery has triphasic flow with a velocity of 78.0 cm/sec and a diameter of 0.6 mm by 0.6mm. R radial artery has triphasic flow with a velocity of 63.3 cm/sec and a diameter of 0.3 mm by 0.3 mm. Left cephalic vein measures: Proximal upper arm 3.9 mm Mid-upper Arm 3.8 mm Antecubital fossa 3.5 mm Mid-forearm 3.5 mm Wrist 3.9 mm Left basilic vein measures: Proximal upper arm 3.8 mm Mid-upper Arm 4.2 mm Antecubital fossa 2.9 mm Left brachial artery has triphasic flow with a velocity of 89.0 cm/sec and a diameter of 0.6 mm by 0.6 mm. Left radial artery has triphasic flow with a velocity of 60.7 cm/sec and a diameter of 0.4 mm by 0.4 mm. 05/26/22 CT Neck: Moderate nonobstructive calcifications @ B/L carotid bifurcations, mostly of ECAs LABS: Lab Results Component Value Date/Time CREATININE - [facility] 2.5 (H) 01/12/2023 09:37 AM CREATININE - [facility] 5.2 (H) 09/19/2022 05:55 AM CREATININE - [facility] 6.3 (H) 09/01/2022 09:12 AM CREATININE - [facility] 1.8 (H) 02/14/2020 02:41 PM CREATININE - [facility] 1.7 (H) 01/28/2020 09:44 AM CREATININE - [facility] 1.9 (H) 01/20/2020 09:23 AM CREATININE NICOLAS 45 02/14/2020 02:28 PM CREATININE NICOLAS 60 04/01/2019 08:27 AM CREATININE NICOLAS 48 03/29/2018 08:11 AM CREATININE NICOLAS - [facility] 17 02/18/2021 09:54 AM CREATININE, RANDOM URINE - [facility] 49 11/09/2021 09:03 AM CREATININE, RANDOM URINE - [facility] 49 11/09/2021 09:03 AM CREATININE, RANDOM URINE - [facility] 19 03/01/2021 08:49 AM CREATININE, RANDOM URINE - [facility] 54 11/19/2019 12:57 PM CREATININE, RANDOM URINE - [facility] 44 09/24/2019 08:07 AM CREATININE, RANDOM URINE - [facility] 63 04/01/2019 08:27 AM CREATININE-OUTSIDE LAB 4.28 (H) 12/09/2022 12:00 AM Lab Results Component Value Date/Time LDL CHOLESTEROL (CALCULATED) - [facility] 68 08/11/2020 09:49 AM LDL CHOLESTEROL (CALCULATED) - [facility] 73 09/24/2019 08:07 AM LDL CHOLESTEROL (DIRECT MEASURE) - [facility] 64 01/12/2023 09:37 AM LDL CHOLESTEROL (DIRECT MEASURE) - [facility] NOT APPLICABLE 09/24/2019 08:07 AM Lab Results Component Value Date/Time HEMOGLOBIN A1C - [facility] 4.9 01/12/2023 09:37 AM HEMOGLOBIN A1C - [facility] 5.6 11/19/2019 12:56 PM The above clinical labs were reviewed by me on 03/08/23 IMPRESSIONS: S/P creation of LEFT RC AVF on 02/09/[address] Payton ESRD, on HD [facility] TD Previously on PD, catheter removed due to SBO & peritonitis, peritoneal fluid grew pseudomonas For the recent SBO, pt underwent exp lap, sigmoid colostomy creation and removal of PD catheter on 09/09/22 S/P EGD 02/16/23, revealed grade T2N0M0 of the distal esophagus Seen, via TeleMed, by Dr Olivas Patient declined chemo, radiation and surgery (esophagogastrectomy) Dr. Li will not do ostomy reversal, now with a new diagnosis of esophageal cancer. 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 RTC @ [facility] for incision/AVF checks: 04/05/23 Continue ASA 81 mg for platelet inhibition Continue Lipitor 40 mg for dyslipidemia/hyperlipidemia/pleiotropic benefits The patient was seen and examined with Brian Payton MD. ERIK Banuelos-C Section of Vascular [place] [address] [phone] I have reviewed the advanced practitioner's documentation and agree with the plan of care. I acceptthe responsibility for the associated risk. L RCAVF - excellent thrill, easily palpable, maybe a little small yet. Has a scab on the incision that otherwise looks well. Would give it a few more weeks to mature prior to cannulation. Unfortunately has diagnosis of esophageal cancer since last seen. Has had a rough year and is obviously frustrated here. Poor candidate for esophagectomy and unlikely to get ostomy reversal with untreated esophageal cancer. Following up with PCP for next steps. Will plan to see him back in a few weeks for fistula check Brian Payton MD Section of Vascular [place] [address] [phone] documented in this encounter Nursing Notes * Nicole Salcedo LPN - 03/08/2023 11:37 AM EST Reviewed the option of transferring scripts to [facility] pharmacy with patient and / or family. Patient was instructed to not get up on the exam table/exam chair until directed and assisted by their provider; patient is to remain seated in the chair/ wheelchair/ exam table/ exam chair for fall prevention and safety reasons. Patient is aware to have assistance to step down off exam table/exam chair with personnel. Patient voiced full comprehension of instructions. Nicole Salcedo LPN documented in this encounter Plan of Treatment Upcoming Encounters Date Type Department Care Team (Late st Contact Info) Description 03/09/2023 10:40 AM EST Office Visit [facility] [address] [place] [address] Barrett Dacosta MD [address] [place] [address] 04/05/2023 11:30 AM EST Office Visit Vascular Surgery, [facility] [address] [place] [address] Brian Payton MD [address] [place] [address] 06/29/2023 8:00 AM EDT Office Visit [facility] [address] [place] [address] Barrett Dacosta MD [address] [place] [address] 01/23/2024 11:00 AM EST Telemedicine Neurosurgery, [facility] [address] [place] [address] Earle Murphy MD [address], [place] [id number] Scheduled Procedures Name Priority Associated Diagnoses Date/Ti me COLONOSCOPY, FLEXIBLE; WITH ENDOSCOPIC MUCOSAL RESECTION Recall History of colonic polyps Health Maintenance Due Date Last Done Comments DTaP,Tdap,and Td Vaccines (3 - Td or Tdap) 11/18/2020 11/18/2010, 01/05/2010 COLONOSCOPY-EVERY 3 YRS AGES 18-100 05/03/2021 05/03/2018, 05/03/2018, 07/20/2012, Additional history exists Diabetic Foot Exam 03/01/2023 03/01/2022, 1 04/21/2020, 02/14/2020, Additional history exists B-12 03/08/2023 03/08/2022, 12/06, 11/29/2021, Additional history exists HbA1c 07/13/2023 01/12/2023, 05/2022, [...] as of this encounter Visit Diagnoses Diagnosis ESRD on dialysis (HCC)- Primary End stage renal disease AVF (arteriovenous fistula) (HCC) Arteriovenous fistula, acquired documented in this encounter Advance Directives Latest [...] Relationship Healthcare Agent Relationshi p Communication Jacklynmaureen Smithnes Spouse Health Care Repr esentative (appointed verbally by patient or by statute hierarchy) Care Teams Psychosocial Rehabilitation Counselor Relationship Specialty Start Date End Date Barrett Dacosta MD [address] [address] PCP - General Family Medicine 04/11/18 documented as of this encounter
--- OUTSIDE RECORDS SUMMARY | 2023-03-27 18:33 | External Medical Summary | Summary of Care ---
Author Name Unknown Organization [facility] Address [address] [facility] [place] [address] Phone [phone] Care Team Providers Care Flight Readiness Technician Name Role Phone Barrett Dacosta MD Primary Care Provider + Encounter Details Date Type Department Care Team (Late st Contact Info) Description 02/20/2023 Telephone Gastroenterology, [facility] [address] [place] [address] Karlee Buitrago MD [address] [place] [address] Allergies No known active allergiesdocumented as of this encounter (statuses as of 02/20/2023) Medications Medication Sig Dispensed Refills Start Date [...] Oral Tablet Extended Release 24 Hour (toPROL XL)Indications:Essen tial hypertension with goal blood pressure less than [...] Active traMADol HCl 50 MG Oral Tablet (Ultram)Indications: MEDICATION USE AGREEMENT,Status post lumbar spinal fusion,Chronic bilateral [...] 01/23/2023 Active Allopurinol 100 MG Oral Tablet (Zyloprim)Indication s:Gout TAKE 2 TABLETS BY MOUTH EVERY MORNING 180 Tablet 3 01/28/2023 Active Azithromycin 250 MG Oral Tablet (Zithromax Z-James) Take two tablets by mouth on first day, then 1 tablet daily until gone 6 Tablet 0 02/06/2023 Active Sevelamer Carbonate 800 MG Oral Tablet (Renvela) TAKE 1 TABLET BY MOUTH THREE TIMES A DAY WITH MEALS 0 01/31/2023 Active documented as of this encounter (statuses as of 02/20/2023) Active Problems Problem Noted Date Diagnosed Date Hypertensive CKD, ESRD on dialysis 12/16/2022 Altered bowel elimination due to intestinal osto my 12/16/2022 Medical home patient encounter 09/28/2022 Colostomy status 09/26/2022 Overview: Sigmoid colostomy by Dr. Jorge on 09/09/22 SSS (sick sinus syndrome) 09/05/2022 Atrioventricular block, Mobitz type 1, Tanvirbac h 09/05/2022 1st degree AV block 09/05/2022 Anemia due to chronic kidney disease, on chronic dialysis 06/03/2022 Aneurysm of left vertebral artery 06/03/2022 Overview: 05/26 [facility] Type 2 diabetes mellitus wit h chronic [...] + high grade dysplasia (? Cancer--[place] [facility] [place]esophagitis, martha 4 wk. CVA 05/26 [facility]. Left sided weakness. 05/26 TTE [facility] normal EF Grade 2 Farmer Dys. Moderate AV sclerosis and calcified mitral valve--stenosis + mod MR.mild MS. No shunt. 04/24 colon-polyp tubular adenoma. Declined f/u. 2012 adenoma. 08/18 TTE-possilbe vegetation. Mild LVH History of prostate cancer 01/09/2013 Overview: S/p resection Dr Whitehead [facility] HTN, goal below 140/90 06/04/2012 Gout 06/04/2012 Overview: 07/18 indomethicin non-form documented as of this encounter (statuses as of 02/20/2023) Resolved Problems Problem Noted Date Diagnosed Date [...] as of this encounter (statuses as of 02/20/2023) Immunizations Name Administration Dates Next Due COVID-19 mRNA, LNP-s, No Pre serve, 2-Dose Series ([employer] [place]) 02/20/2021,06/17/2020,05/26/2020 Covid-19, Mrna, Lnp-s, Pf, B ivalent, 30 Mcg, IM, 12 yrs and above ([employer] [place]) 12/24/2021 Hepatitis B Vaccine, Recombi nant, Adjuvanted, [...] encounter Miscellaneous Notes * Telephone Encounter - Karlee Buitrago MD - 02/20/2023 12:56 PM EST Repeat path is confirmed adenocarcinoma. Per MDC discussion, if path is malignant he will need esophagectomy. Can you plz arrange referrals to (Thoracic surgery) and (surgical Oncology).Patient also was wondering if they can reverse his colostomy at the same time. Deb YATES documented in this encounter Plan of Treatment Upcoming Encounters Date Type Department Care Team (Late st Contact Info) Description 03/02/2023 10:30 AM EST Office Visit General Surgery, [facility] [address] [place] [address] Josefa Li MD [address] [place] [address] 03/08/2023 11:50 AM EST Office Visit Vascular Surgery, [facility] [address] [place] [address] Brian Payton MD [address] [place] [address] 03/16/2023 2:00 PM EST Office Visit Gastroenterology, [facility] [address] [place] [address] Muriel Broussard CRNP [address] [place] [address] 04/05/2023 11:30 AM EST Office Visit Vascular Surgery, [facility] [address] [place] [address] Brian Payton MD [address] [place] [address] 06/29/2023 8:00 AM EDT Office Visit Family Practice [facility] [address] [place] [address] Barrett Dacosta MD [address] [place] [address] 01/23/2024 11:00 AM EST Telemedicine [facility] [place] [address] [place] [address] Earle Murphy MD [address], [place] [phone] Scheduled Procedures Name Priority Associated Diagnoses Date/Ti [...] patient or by statute hierarchy) Care Teams Flight Readiness Technician Relationship Specialty Start Date End Date Barrett Dacosta MD [address] [place] [address] PCP - General Family Medicine 04/11/18 documented as of this encounter
--- OUTSIDE RECORDS SUMMARY | 2023-03-27 18:33 | External Medical Summary | Summary of Care ---
Author Name Unknown Organization [facility] Address [address] [facility] [place] [address] Phone [phone] Care Team Providers Care Mortgage Specialist Name Role Phone Barrett Dacosta MD Primary Care Provider + Encounter Details Date Type Department Care Team (Late st Contact Info) Description 02/20/2023 Telephone Gastroenterology, [facility] [address] [place] [address] Karlee Buitrago MD [address] [place] [address] Allergies No known active allergiesdocumented as of [...] of left vertebral artery 06/03/2022 Overview: 05/26 [facility] Type 2 diabetes mellitus wit h chronic [...] + high grade dysplasia (? Cancer--sent [place] [facility] for review)/esophagitis, martha 4 wk. CVA 05/26 [facility]. Left sided weakness. 05/26 [facility] normal EF Grade 2 Farmer Dys. Moderate AV sclerosis and calcified mitral valve--stenosis + mod MR.mild MS. No shunt. 04/24 colon-polyp tubular adenoma. Declined f/u. 2012 adenoma. 08/18 TTE-possilbe vegetation. Mild LVH History of prostate cancer 01/09/2013 Overview: S/p [place] Dr [place] [facility] [place], goal below 140/90 06/04/2012 Gout 06/04/2012 [...] mRNA, LNP-s, No Pre serve, 2-Dose Series ([employer]) 02/20/2021,06/17/2020,05/26/2020 Covid-19, Mrna, Lnp-s, Pf, B ivalent, 30 Mcg, IM, 12 yrs and above ([employer]) 12/24/2021 Hepatitis B Vaccine, Recombi nant, Adjuvanted, [...] Buitrago MD - 02/20/2023 12:56 PM EST I spoke to the patient and informed him about oath results. Repeat path is confirmed adenocarcinoma. Per MDC [...] 10:30 AM EST Office Visit General Surgery, [facility] [address] [facility] [place] [address] Josefa Li MD [address] [place] [address] 03/08/2023 11:50 AM EST Office Visit Vascular Surgery, [facility] [address] [place] [address] Brian Payton MD [address] [place] [address] 03/16/2023 2:00 PM EST Office Visit Gastroenterology, [facility] [address] [facility] [place] [address] Muriel Broussard CRNP 132 [place] [address] 04/05/2023 11:30 AM EST Office Visit Vascular Surgery, [facility] [address] [facility] [place] [address] Brian Payton MD [address] [place], [place] [id number] 06/29/2023 8:00 AM EDT Office Visit Family Practice [facility] [address] [facility] [place] [address] Barrett Dacosta MD [address] [place] [address] 01/23/2024 11:00 AM EST Telemedicine [facility] [address] [place] [address] Earle Mruphy MD [address] [place] [address] Scheduled Procedures Name Priority Associated Diagnoses Date/Ti [...] patient or by statute hierarchy) Care Teams Mortgage Specialist Relationship Specialty Start Date End Date Barrett Dacosta MD [address] [place] [address] PCP - General Family Medicine 04/11/18 documented as of this encounter
--- OUTSIDE RECORDS SUMMARY | 2023-03-27 18:33 | External Medical Summary | Summary of Care ---
Author Name Unknown Organization [facility] Address [address] [place] [address] Phone [phone] Care Team Providers Care Retail Store Assistant Name Role Phone Barrett Dacosta MD Primary Care Provider + Reason for Visit * Evaluate & Treat - Unlimited Visits (Within 10 days (routine)) - Authorized Specialty Diagnoses / Procedures Referred By Adali newell Referred To Contact SURGICAL ONCOLOGY / Surgical Oncology Diagnoses Esophageal mass Karlee Buitrago MD [address] [place] [address] Leon Olivas MD [address] [place] [address] Referral ID Status Reason Start Date Expiration Date Visits Requested Visits Authorized [id number] Authorized Specialty Services Required [phone] Encounter Details Date Type Department Care Team (Late st Contact Info) Description 02/23/2023 12:00 PM EST Telemedicine General Surgery, [place] [address], [place] [phone] Leon Olivas MD [address], [place] [phone] Pre-operative examination* Allergies No known active allergiesdocumented as of this encounter (statuses as of 02/23/2023) Medications Medication Sig Dispensed Refills Start Date [...] as of this encounter (statuses as of 02/23/2023) Active Problems Problem Noted Date Diagnosed Date Hypertensive CKD, ESRD on dialysis 12/16/2022 Altered bowel elimination due to intestinal osto my 12/16/2022 Medical home patient encounter 09/28/2022 Colostomy status 09/26/2022 Overview: Sigmoid colostomy by Dr. Jorge on 09/09/22 SSS (sick sinus syndrome) 09/05/2022 Atrioventricular block, Mobitz type 1, Lamontekeba h 09/05/2022 1st degree AV block 09/05/2022 Anemia due to chronic kidney disease, on chronic dialysis 06/03/2022 Aneurysm of left vertebral artery 06/03/2022 Overview: 05/26 [facility] Type 2 diabetes mellitus wit [...] + high grade dysplasia (? Cancer--sent to [facility] for review[place]esophagitis, martha 4 wk. CVA 05/26 [facility]. Left sided weakness. 05/26 TTE [facility] normal EF Grade 2 Farmer Dys. Moderate AV sclerosis and calcified mitral valve--stenosis + mod MR.mild MS. No shunt. 04/24 colon-polyp tubular adenoma. Declined f/u. 2012 adenoma. 08/18 TTE-possilbe vegetation. Mild LVH History of prostate cancer 01/09/2013 Overview: S/p resection Dr Whitehead [facility] HTN, goal below 140/90 06/04/2012 Gout 06/04/2012 Overview: 07/18 indomethicin non-form documented as of this encounter (statuses as of 02/23/2023) Resolved Problems Problem Noted Date Diagnosed Date [...] as of this encounter (statuses as of 02/23/2023) Immunizations Name Administration Dates Next Due COVID-19 mRNA, LNP-s, No Pre serve, 2-Dose Series ([employer]) 02/20/2021,06/17/2020,05/26/2020 Covid-19, Mrna, Lnp-s, Pf, B ivalent, [...] money to buy more. Never true 09/28/19 Within the past 12 months, t he [...] on file documented as of this encounter Progress Notes * Leon Olivas MD - 02/23/2023 12:37 PM EST After connecting to the patient via telephone, the patient was identified by name and date of . Patient was then informed that this was a telephone call only visit. The patient agreed to participate. Visit Disposition: Routine follow-up Total call duration was 25 minutes. 02/16/23 EUS Impression: - A firm distal esophageal mucosal nodule with submucosal invasion into the MP was found, invasion confirmed with direct endoscopic visualization, not a candidate for endoscopic resection. This was staged T2 N0 Mx by endosonographic criteria. The staging applies if malignancy is confirmed. Fine needle biopsy performed. Cytology Final Diagnosis A. Esophagus, EUS guided fine needle aspiration: Adequacy: Satisfactory for evaluation. Category: Malignant. Interpretation: Adenocarcinoma. Other: Cellblock: The histological sections of the cellblock preparation show similar findings. Pathology Final Diagnosis A: Gastroesophageal junction, biopsy: -Invasive adenocarcinoma (moderately differentiated) arising off high-grade dysplasia. Note: Her2 study is being ordered and a report will follow. 01/31/23 PET IMPRESSION 1. Poorly defined probable mass at/just distal to the gastroesophageal junction consistent with outside pathology result noting high-grade glandular dysplasia (12/08/2022 from [facility]). No obvious metastatic disease. 2. Extensive senescent and postsurgical changes as above. A. Esophagus, EUS guided fine needle aspiration: Adequacy: Satisfactory for evaluation. Category: Malignant. Interpretation: Adenocarcinoma. Other: Cellblock: The histological sections of the cellblock preparation show similar findings. SURGICAL ONCOLOGY CONSULTATION [facility], [place], [place] DATE: 02/23/2023 CHIEF COMPLAINT: No chief complaint on file. HISTORY OF PRESENT ILLNESS: I was asked to see Ricky Cason by Dr. Dacosta and Minna This is a 77 year old, male with a history of: Swallowing issues IMAGING: See above Images reviewed by myself with the patient today PATHOLOGY / LABS: See above REVIEW OF SYSTEMS: All systems negative other than noted in HPI CVA in May 2022 SBO and underwent colostomy in September 2022- Pepe Be Prostate cancer s/p prostatectomy PAST MEDICAL HISTORY: Patient Active Problem List Diagnosis Code HTN, goal below 140/90 I10 Gout M10.9 History of prostate cancer Z85.46 Routine general medical examination at a health care facility Z00.00 Status post lumbar spinal fusion Z98.1 MEDICATION USE AGREEMENT [id number] Type 2 diabetes mellitus with hemoglobin A1c goal of less than 8.0% ([facility]) E11.9 Persistent proteinuria R80.1 Primary open-angle glaucoma, bilateral, indeterminate stage H40.1134 Type 2 diabetes mellitus with chronic kidney disease on chronic dialysis ([facility]) E11.22, N18.6, Z99.2 Calcification of aorta ([facility]) I70.0 ESRD on dialysis ([facility]) N18.6, Z99.2 Anemia due to chronic kidney disease, on chronic dialysis ([facility]) N18.6, D63.1, Z99.2 Aneurysm of left vertebral artery ([facility]) I72.6 SSS (sick sinus syndrome) ([facility]) I49.5 Atrioventricular block, Mobitz type 1, Wenckebach I44.1 1st degree AV block I44.0 Colostomy status ([facility]) Z93.3 Medical home patient encounter Z00.8 Hypertensive CKD, ESRD on dialysis ([facility]) I12.0, N18.6, Z99.2 Altered bowel elimination due to intestinal ostomy ([facility]) K94.19 Past Medical History: Diagnosis Date Abnormal echocardiogram 08/19/2014 Anemia due to chronic kidney disease, on chronic dialysis ([facility]) 06/03/2022 Anemia in stage 4 chronic kidney disease 02/19/2021 Aneurysm of left vertebral artery ([facility]) 06/03/2022 Benign neoplasm of colon 07/20/12 COLONOSCOPY FLEXIBLE PROXIMAL DIAGNOSTIC performed by Rukhsana Gunter DO at [facility],ADENOMATOUS POLYPS REPEAT COLONOSCOPY IN 5 YEARS Bilateral low back pain without sciatica 02/19/2015 Cerebrovascular accident (CVA) due to thrombosis of right middle cerebral artery ([facility]) 09/05/2022 Hx - CVA in May 2022 Constipation due to opioid therapy 03/29/2018 Diabetes mellitus with nephropathy ([facility]) 04/09/2018 Dyslipidemia, goal LDL below 100 11/06/2013 Dyslipidemia, goal LDL below 130 11/07/2013 Gout 06/04/2012 High blood pressure HTN, goal below 140/80 06/04/2012 Internal hemorrhoids 06/04/2012 Kidney disease, chronic, stage IV (GFR 15-29 ml/min) ([facility]) 02/19/2021 Malignant melanoma of face ([facility]) 06/04/2012 Malignant melanoma of skin of other and unspecified parts of face MEDICATION USE AGREEMENT 02/19/2015 Microalbuminuria 04/24/2014 OA (osteoarthritis) of knee 11/06/2013 Other and unspecified hyperlipidemia Hypercholesterolemia Prediabetes 07/18/2014 Prostate cancer ([facility]) 11/13/12 marco 7 and 6 Recurrent sinus infections 04/24/2014 Status post lumbar spinal fusion 06/17/2014 06/11/14 Sia Type 2 diabetes mellitus with chronic kidney disease on chronic dialysis ([facility]) 03/01/2022 Type 2 diabetes mellitus with hemoglobin A1c goal of less than 8.0% ([facility]) 11/27/2017 MEDICATIONS: Current Outpatient Medications Medication Sig Dispense Refill [...] No current facility-administered medications for this visit. ALLERGIES TO MEDICATIONS: Review of patient's allergies indicates: No Known Allergies PAST SURGICAL HISTORY: Past Surgical History: Procedure Laterality Date AV ACCESS, DIRECT ANASTOMOSIS Left 02/09/2023 ARTERIOVENOUS ANASTOMOSIS OPEN DIRECT ANY SITE performed by Brian Payton MD at OR [facility] COLONOSCOPY, DIAGNOSTIC (RECTUM) 07/20/2012 COLONOSCOPY FLEXIBLE PROXIMAL DIAGNOSTIC performed by Rukhsana Gunter DO at [facility],ADENOMATOUS POLYPS REPEAT COLONOSCOPY IN 5 YEARS COLONOSCOPY, DIAGNOSTIC (RECTUM) 05/03/2018 diverticulosis sigmoid colon/biopsies show adenomatous polyps/recall 3 years/COLONOSCOPY FLEXIBLE PROXIMAL DIAGNOSTIC performed by Rukhsana Gunter DO at ENDOSCOPY [facility] COLONOSCOPY/REMOVE LESION 2009 EGD, FLEXIBLE, ENDO MUCOSAL RESECTION N/A 02/16/2023 ESOPHAGOGASTRODUODENOSCOPY (EGD), FLEXIBLE, TRANSORAL: MUCOSAL RESECTION performed by Karlee Buitrago MD at OR [facility] EGD, W/ENDOSCOPIC US N/A 01/13/2023 partially obstructing tumor GEJ/one benign appearing enlarged lymph node/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 ric INJECTION LUMBAR/SACRAL 03/28/2014 INJECTION SPINE LUMBAR OR SACRAL performed by Vicente Mcpherson DO at OR [facility] LAPAROSCOPY, W/ INSERT INTRAPERITONEAL CATH N/A 01/12/2022 LAPAROSCOPIC INSERTION INTRAPERITONEAL CANNULA OR CATHETER performed by Florentin Will MD at OR [facility] LUMBAR / SACRAL EPIDURAL, SINGLE LEVEL 08/08/2016 INJECTION TRANSFORAMINAL EPIDURAL LUMBAR OR SACRAL performed by Vicente Mcpherson DO at OR [facility] LUMBAR / SACRAL EPIDURAL, SINGLE LEVEL 08/25/2016 INJECTION TRANSFORAMINAL EPIDURAL LUMBAR OR SACRAL performed by Vicente Mcpherson DO at OR [facility] LUMBAR SPINE FUSION W/BONE GRAFT 06/11/2014 Dr Corrales MELANOMA AJCC STAGE 0 OR 1A DOCUMENTED 1999 face NEEDLE/PUNCH BIOPSY OF PROSTATE 11/06/2012 Prostate,Needle/Punch Biopsy OTHER 09/16/2022 Permacath placement for HD @[facility] ID COLOSTOMY/SKIN LEVEL CECOSTOMY 09/09/2022 Dr Jorge [facility] ID EXPLORATORY LAPAROTOMY CELIOTOMY W/WO BIOPSY SPX 09/09/2022 Dr Jorge [facility]. ex lap for SBO/sigmoid colostomy, removal PD catheter. ID REVJ TOT HIP ARTHRP FEM ONLY W/WO ALGRFT Right 12/03/2022 PROSTATECTOMY, RETROPUBIC RADICAL, LAP 01/07/2013 ROBOTIC LAPAROSCOPIC PROSTATECTOMY RETROPUBIC RADICAL performed by Cordell Whitehead MD at OR 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 He has a T2 N0 M0 tumor and typically we would do chemotherapy and radiation followed by surgery for this. We discussed this and the surgery which would it require esophagectomy with the stay in the hospital feeding tube in follow-up at home. At this point with his decline in health and the surgery he is not interested in pursuing surgery or chemotherapy or radiation and would like to continue on his current regimen of dialysis. He has minimal symptoms from this at this point. He will follow with Dr. Dacosta and states that at some point he may come off dialysis and he has discussed this with his primary care doctor in his bilingual patient support caseworker. We will also cancel his appointment for Dr. Li as he will not get his ostomy reversed with a esophageal cancer. He will call us in the future if there are issues or if he changes his mind. Leon Olivas MD drapery installer Section Head, Surgical Oncology and Endocrine Surgery [facility] [address] [place] [address] Office: [phone] [email or web address] documented in this encounter Plan of Treatment Upcoming Encounters Date Type Department Care Team (Late st Contact Info) Description 03/02/2023 10:30 AM EST Office Visit General Surgery, [facility] [address] [place] [address] Josefa Li MD [address] [place] [address] 03/08/2023 11:50 AM EST Office Visit Vascular Surgery, [facility] [address] [place] [address] Brian Payton MD [address] [place] [address] 03/16/2023 2:00 PM EST Office Visit Gastroenterology, [facility] [address] [place] [address] Muriel Broussard CRNP [address] [place] [address] 04/05/2023 11:30 AM EST Office Visit Vascular Surgery, [facility] [address] [place] [address] Brian Payton MD [address] [place] [address] 06/29/2023 8:00 AM EDT Office Visit Family Practice [facility] [address] [place] [address] Barrett Dacosta MD [address] [place] [address] 01/23/2024 11:00 AM EST [facility] [address] [place] [address] Earle Murphy MD [address] [place] [address] Scheduled Procedures Name Priority Associated Diagnoses Date/Ti me COLONOSCOPY, FLEXIBLE; WITH ENDOSCOPIC MUCOSAL RESECTION Recall History of colonic polyps Scheduled Referrals Name Type Priority Associated Diagnoses Orde r Schedule SURGICAL ONCOLOGY REFERRAL OP Referral Within 10 days (routine) Esophageal mass Ordered: 01/13/2023 Health Maintenance Due Date Last Done Comments [...] as of this encounter Visit Diagnoses Diagnosis Pre-operative examination- Primary Preoperative examination, unspecified documented in this encounter Advance Directives Latest [...] patient or by statute hierarchy) Care Teams Retail Store Assistant Relationship Specialty Start Date End Date Barrett Dacosta MD [address] [place] [address] PCP - General Family Medicine 04/11/18 documented as of this encounter
--- OUTSIDE RECORDS SUMMARY | 2023-03-27 18:33 | External Medical Summary | Summary of Care ---
Author Name Unknown Organization [facility] Address [address] [facility] [place] [address] Phone [phone] Care Team Providers Care Vest Backer Name Role Phone Barrett Dacosta MD Primary Care Provider + Encounter Details Date Type Department Care Team (Late st Contact Info) Description 02/20/2023 Telephone Gastroenterology, [facility] [address] [place] [address] Karlee Buitrago MD [address] [place] [address] Allergies No known active allergiesdocumented as of [...] of left vertebral artery 06/03/2022 Overview: 05/26 [facility] Type 2 diabetes mellitus wit h chronic [...] high grade dysplasia (? Cancer--sent [place] [facility] [place])/esophagitis, martha 4 wk. CVA 05/26 [facility]. Left sided weakness. 05/26 TTE [facility] normal EF Grade 2 Farmer Dys. Moderate AV sclerosis and calcified mitral valve--stenosis + mod MR.mild MS. No shunt. 04/24 colon-polyp tubular adenoma. Declined f/u. 2012 adenoma. 08/18 TTE-possilbe vegetation. Mild LVH History of prostate cancer 01/09/2013 Overview: S/p resection Dr Whitehead [facility] HTN, goal below 140/90 06/04/2012 Gout 06/04/2012 [...] mRNA, LNP-s, No Pre serve, 2-Dose Series ([employer]) 02/20/2021,06/17/2020,05/26/2020 Covid-19, Mrna, Lnp-s, Pf, B ivalent, 30 Mcg, IM, 12 yrs and above ([employer]) 12/24/2021 Hepatitis B Vaccine, Recombi nant, Adjuvanted, [...] Encounter - Karlee Buitrago MD - 02/20/2023 1:26 PM EST I spoke to patient and informed him about path result consistent with adenocarcinoma. documented in this encounter Plan of Treatment Upcoming Encounters Date Type Department Care Team (Late st Contact Info) Description 03/02/2023 10:30 AM EST Office Visit General Surgery, [facility] [address] [place] [address] Josefa Li MD [address] [place], [place] [phone] 03/08/2023 11:50 AM EST Office Visit Vascular Surgery, [facility] [address] [place] [place] [address] Brian Payton MD [address] [place], [place] [phone] 03/16/2023 2:00 PM EST Office Visit Gastroenterology, [facility] [address] [facility] [place] [address] Muriel Broussard CRNP 132 [place] [address] 04/05/2023 11:30 AM EST Office Visit Vascular Surgery, [facility] [address] [place] [address] Brian Payton MD [address] [place], [place] [phone] 06/29/2023 8:00 AM EDT Office Visit Family Practice [facility] 132 [place] [address] Barrett Dacosta MD [address] [facility] [place] [address] 01/23/2024 11:00 AM EST [facility] [address] [place] [address] Earle Murphy MD [address] [facility] [place] [address] Scheduled Procedures Name Priority Associated Diagnoses Date/Ti [...] patient or by statute hierarchy) Care Teams Vest Backer Relationship Specialty Start Date End Date Barrett Dacosta MD [address] [place] [address] PCP - General Family Medicine 04/11/18 documented as of this encounter
--- OUTSIDE RECORDS SUMMARY | 2023-03-27 18:33 | External Medical Summary | Summary of Care ---
Author Name Unknown Organization [facility] Address [address] [facility] [place] [address] Phone [phone] Care Team Providers Care Industrial Gas Servicer Helper Name Role Phone Barrett Dacosta MD Primary Care Provider + Encounter Details Date Type Department Care Team (Late st Contact Info) Description 02/20/2023 Telephone Gastroenterology, [facility] [address] [place] [address] Karlee Buitrago MD [address] [place] [address] Allergies No known active allergiesdocumented as of this encounter (statuses as of 02/21/2023) Medications Medication Sig Dispensed Refills Start Date [...] as of this encounter (statuses as of 02/21/2023) Active Problems Problem Noted Date Diagnosed Date [...] for review)/esophagitis, martha 4 wk. CVA 05/26 [facility]. Left sided weakness. 05/26 TTE [facility] normal EF Grade 2 Farmer Dys. Moderate AV sclerosis and calcified mitral valve--stenosis + mod MR.mild MS. No shunt. 04/24 colon-polyp tubular adenoma. Declined f/u. 2012 adenoma. 08/18 TTE-possilbe vegetation. Mild LVH History of prostate cancer 01/09/2013 Overview: S/p resection Dr Whitehead [facility] HTN, goal below 140/90 06/04/2012 Gout 06/04/2012 Overview: 07/18 indomethicin non-form documented as of this encounter (statuses as of 02/21/2023) Resolved Problems Problem Noted Date Diagnosed Date [...] as of this encounter (statuses as of 02/21/2023) Immunizations Name Administration Dates Next Due COVID-19 mRNA, LNP-s, No Pre serve, 2-Dose Series ([employer]) 02/20/2021,06/17/2020,05/26/2020 Covid-19, Mrna, Lnp-s, Pf, B ivalent, 30 Mcg, IM, 12 yrs and above ([employer]) 12/24/2021 Hepatitis B Vaccine, Recombi nant, Adjuvanted, [...] malignant he will need esophagectomy. Can you pllucinda arrange referrals to (Thoracic surgery) and (surgical Oncology).Patient also was wondering if they can reverse his colostomy at the same time. Deb YATES documented in this encounter Plan of Treatment Upcoming Encounters Date Type Department Care Team (Late st Contact Info) Description 02/23/2023 12:00 PM EST [facility] [address] [place], [place] [phone] Leon Olivas MD [address] [place] [address] 03/02/2023 10:30 AM EST Office Visit General Surgery, [facility] [address] [place] [address] Josefa Li MD [address] [place] [address] 03/08/2023 11:50 AM EST Office Visit Vascular Surgery, [facility] [address] [place] [address] Brian Payton MD [address] [place] [address] 03/16/2023 2:00 PM EST Office Visit Gastroenterology, [facility] 132 [place] [address] Muriel Broussard CRNP 132 [place] [address] 04/05/2023 11:30 AM EST Office Visit Vascular Surgery, [facility] 132 [place] [address] Brian Payton MD [address] [place] [address] 06/29/2023 8:00 AM EDT Office Visit Family Practice [facility] [address] [place] [address] Barrtet Dacosta MD [address] [place] [address] 01/23/2024 11:00 AM EST Telemedicine Neurosurgery, [place] [address] [place] [address] Earle Murphy MD [address] [place], [place] [phone] Scheduled Procedures Name Priority Associated Diagnoses Date/Ti [...] patient or by statute hierarchy) Care Teams Industrial Gas Servicer Helper Relationship Specialty Start Date End Date Barrett Dacosta MD [address] [place] [address] PCP - General Family Medicine 04/11/18 documented as of this encounter
--- OUTSIDE RECORDS SUMMARY | 2023-03-27 18:33 | External Medical Summary | Summary of Care ---
Author Name Unknown Organization [facility] Address [address] [place] [address] Phone [phone] Care Team Providers Care Dipping Machine Operator Name Role Phone Barrett Dacosta MD Primary Care Provider + Reason for Visit * Reason Onset Date Comments Appointment 02/20/2023 Encounter Details Date Type Department Care Team (Late st Contact Info) Description 02/20/2023 Telephone General Surgery, [place] [address] [place] [address] Leon Olivas MD [address] [place] [address] Appointment Allergies No known active allergiesdocumented as [...] left vertebral artery 06/03/2022 Overview: 05/26 [facility] Type 2 diabetes mellitus wit h chronic kidney disease on chronic dialysis 03/01/2022 Calcification of aorta 03/01/2022 ESRD on dialysis 03/01/2022 Primary open-angle glaucoma, bilateral, indeterm inate stage 02/14/2020 Persistent proteinuria 04/18/2018 Type 2 diabetes mellitus wit h hemoglobin A1c goal of less than 8.0% 11/27/2017 MEDICATION USE AGREEMENT 02/19/2015 Status post lumbar spinal fusion 06/17/2014 Overview: 06/11/14 Jimmieetti Routine general medical exam ination at a health care facility 04/24/2014 Overview: 01/26 EGD gastro-esoph mass PATH: 11/26 fall, right hip frx. 12/26 EGD + high grade dysplasia (? Cancer--sent to [facility] for review)/esophagitis, martha 4 wk. CVA 05/26 [facility]. Left sided weakness. 05/26 TTE [facility] normal EF Grade 2 Farmer Dys. Moderate AV sclerosis and calcified mitral valve--stenosis + mod MR.mild MS. No shunt. 04/24 colon-polyp tubular adenoma. Declined f/u. 2012 adenoma. 08/18 TTE-possilbe vegetation. Mild LVH History of prostate cancer 01/09/2013 Overview: S/p resection Dr Whitehead [facility] HTN, goal below 140/90 [...] mRNA, LNP-s, No Pre serve, 2-Dose Series ([employer]) 02/20/2021,06/17/2020,05/26/2020 Covid-19, Mrna, Lnp-s, Pf, B ivalent, 30 Mcg, IM, 12 yrs and above ([employer]) 12/24/2021 Hepatitis B Vaccine, Recombi nant, Adjuvanted, [...] encounter Miscellaneous Notes * Telephone Encounter - Melvi Otero RN - 02/20/2023 3:08 PM EST Please refer also to encounter dated 01/17/23 02/16/23 EUS Impression: - A firm distal [...] result noting high-grade glandular dysplasia (12/08/2022 from [facility]). No obvious metastatic disease. 2. Extensive senescent and postsurgical changes as above. Call to patient. Patient identified by name and date of . Accepted telephone appointment 02/23/[address] Olivas. Patient aware Dr Olivas is in the OR that day and time is an estimate- call may be earlier or later. Reviewed usual process of referrals to HemOnc (in place) and RadOnc. Patient would go to [facility] for RadOnc but he thought since this was early stage he would have surgery. Will hold on referral until after appointment on 02/23/23. documented in this encounter Plan of Treatment Upcoming Encounters Date Type Department Care Team (Late st Contact Info) Description 03/08/2023 11:50 AM EST Office Visit Vascular Surgery, [facility] [address] [facility] [place] [address] Brian Payton MD [address] [place], [place] [phone] 03/16/2023 2:00 PM EST Office Visit Gastroenterology, [address] [place] [address] Muriel Broussard CRNP [address] [place] [address] 04/05/2023 11:30 AM EST Office Visit Vascular Surgery, [facility] [address] [facility] [place] [address] Brian Payton MD [address] [place] [address] 06/29/2023 8:00 AM EDT Office Visit Family Practice [facility] [address] [place] [place] [address] Barrett Dacosta MD [address] [place] [address] 01/23/2024 11:00 AM EST Telemedicine Neurosurgery, [place] [address] [place] [address] Earle Murphy MD [address] [place] [address] Scheduled Procedures Name Priority Associated Diagnoses Date/Ti [...] 11/29/2021, Additional history exists HbA1c 07/13/2023 01/12/2023, 01/0 [...] patient or by statute hierarchy) Care Teams Dipping Machine Operator Relationship Specialty Start Date End Date Barrett Dacosta MD [address] [place] [address] PCP - General Family Medicine 04/11/18 documented as of this encounter
--- OUTSIDE RECORDS SUMMARY | 2023-03-27 18:34 | External Medical Summary ---
Author Name Unknown Address Unknown Organization K01:LABORATORY [facility] - [address] [place] [address] Laboratory Report Ordering Provider Test Date Status ALEENA ROBERTSON 02/09/2023 09:15:32 Final Observation Date Value Abnormality Reference (Units ) Status Potassium, Whole Blood 02/09/2023 09:15:32 4.0 3.5-5.1 (mmol/L) Final Performing Location LABORATORY [facility] - [address] [place] [address]
--- OUTSIDE RECORDS SUMMARY | 2023-03-27 18:34 | External Medical Summary ---
Author Name Unknown Address Unknown Organization K1F:LABORATORY [facility] - [address] [place] [address] Laboratory Report Ordering Provider Test Date Status ROBBRITTANI 02/16/2023 12:28:32 Final Observation Date Value Abnormality Reference (Units ) Status Potassium 02/16/2023 12:28:32 4.6 3.5-5.1 (m mol/L) Final Performing Location LABORATORY [facility] - [address] [place] [address]
--- OUTSIDE RECORDS SUMMARY | 2023-03-27 18:34 | External Medical Summary | Summary of Care ---
Author Name Unknown Organization [facility] Address [address] [place] [address] Phone [phone] Care Team Providers Care Farm Boss Name Role Phone Barrett Dacosta MD Primary Care Provider + Reason for Visit * Reason Comments Research Screening Encounter Details Date Type Department Care Team (Late st Contact Info) Description 02/07/2023 Documentation Hematology Oncology [facility] [address] [place] [address] [facility] Office Hem Onc [address] [place] [address] Allergies No known active allergiesdocumented as of this encounter (statuses as of 02/07/2023) Medications Medication Sig Dispensed Refills Start Date [...] until gone 6 Tablet 0 02/06/2023 Active documented as of this encounter (statuses as of 02/07/2023) Active Problems Problem Noted Date Diagnosed Date [...] + high grade dysplasia (? Cancer--sent to [facility] for review)/esophagitis, martha 4 wk. CVA 05/26 [facility]. Left sided weakness. 05/26 TTE [facility] normal EF Grade 2 Farmer Dys. Moderate AV sclerosis and calcified mitral valve--stenosis + mod MR.mild MS. No shunt. 04/24 colon-polyp tubular adenoma. Declined f/u. 2012 adenoma. 08/18 TTE-possilbe vegetation. Mild LVH History of prostate cancer 01/09/2013 Overview: S/p resection Dr Whitehead [facility] HTN, goal below 140/90 06/04/2012 Gout 06/04/2012 Overview: 07/18 indomethicin non-form documented as of this encounter (statuses as of 02/07/2023) Resolved Problems Problem Noted Date Diagnosed Date [...] as of this encounter (statuses as of 02/07/2023) Immunizations Name Administration Dates Next Due COVID-19 mRNA, LNP-s, No Pre serve, 2-Dose Series ([employer]) 02/20/2021,06/17/2020,05/26/2020 Covid-19, Mrna, Lnp-s, Pf, B ivalent, 30 Mcg, IM, 12 yrs and above ([employer]) 12/24/2021 Hepatitis B Vaccine, Recombi nant, Adjuvanted, 20 mcg/mL ([employer]) 04/11/2022,03/11/2022 Pneumococcal Conjugate Vacc, 13 Valent (Prevnar) 08/05/2015 Pneumococcal Conjugate Vaccine, 7 Valent 011 Pneumococcal Polysaccharide PPV23 (Pneumovax) 11/06/2013,01/05/2010 SEASONAL INFLUENZA, PF, 6 M & Above, IM , (FLULAVAL or FLUZONE) 11/27/2017,01/23/2017 Season Influenza, Quad, PF, Adjuvanted, 65+ Yrs, IM (FLUAD) 11/16/2019 Seasonal Influenza, Quadriva lent Hd (Fluzone Hd) [...] as of this encounter Miscellaneous Notes * Research Note - Barbie Benavidez RN - 02/07/2023 10:01 AM EST At the request of [facility], this patient has been screened for possible clinical trials options for their diagnosis. There are no clinical trials available at this time for this patient. Patient screened by Barbie Benavidez RN CRC II Oncology Clinical Research Coordinator II [facility] Department of Hem/Onc Research [facility] P: [phone] . documented in this encounter Plan of Treatment Upcoming Encounters Date Type Department Care Team (Latest Contact Info) Description 02/09/2023 9:46 AM EST Hospital Encounter OR [facility], OPERATING ROOM [facility], [facility] [address] [place] [address] Brian Payton MD [address] [place] [address] 02/09/2023 9:46 AM EST - 02/09/2023 12:05 PM EST Surgery OR [facility], OPERATING ROOM [facility], [facility] [address] [place] [address] Brian Payton MD [address] [place] [address] ARTERIOVENOUS ANASTOMOSIS OPEN DIRECT ANY SITE 02/16/2023 1:07 PM EST Hospital Encounter OR [facility], Operating Room, [facility] - 4th Floor [address] [place] [address] Karlee Buitrago MD [address] [place] [address] 02/16/2023 1:07 PM EST - 02/16/2023 3:23 PM EST Surgery OR [facility], Operating Room, [facility] - 4th Floor 400 [facility] [address] Karlee Buitrago MD [address] [place] [address] ESOPHAGOGASTRODUODENOSCOPY (EGD), FLEXIBLE, TRANSORAL: MUCOSAL RESECTION 03/02/2023 10:30 AM EST Office Visit General Surgery, [facility] 132 [place] [address] Josefa Li MD [address] [place] [address] 03/08/2023 11:50 AM EST Office Visit Vascular Surgery, [facility] 132 [place] [address] Brian Payton MD [address] [place], [place] [address] 03/16/2023 2:00 PM EST Office Visit Gastroenterolog y, [facility] 132 [place] [address] Muriel Broussard CRNP [address] [place] [address] 04/05/2023 11:30 AM EST Office Visit Vascular Surgery, [facility] [address] [place] [address] Brian Payton MD [address] [place] [address] 06/29/2023 8:00 AM EDT Office Visit Family Practice [facility] [address] [place] [address] Barrett Dacosta MD 132 [facility] [address] 01/23/2024 11:00 AM EST Telemedicine Neurosurgery, [place] [address] [place], [place] [phone] Earle Murphy MD [address] [place], [place] [phone] Scheduled Procedures Name Priority Associated Diagnoses Date/Ti me ARTERIOVENOUS ANASTOMOSIS OP EN DIRECT ANY SITE ESRD on dialysis (HCC) 02/09/2023 9:46 AM EST ESOPHAGOGASTRODUODENOSCOPY ( EGD), FLEXIBLE, TRANSORAL: MUCOSAL RESECTION Abnormal gastrointestinal PET scan 02/16/2023 1:07 PM EST COLONOSCOPY, FLEXIBLE; WITH ENDOSCOPIC MUCOSAL RESECTION Recall [...] patient or by statute hierarchy) Care Teams Farm Boss Relationship Specialty Start Date End Date Barrett Dacosta MD [address] [place] [address] PCP - General Family Medicine 04/11/18 documented as of this encounter
--- OUTSIDE RECORDS SUMMARY | 2023-03-27 18:34 | External Medical Summary | Summary of Care ---
Author Name Unknown Organization [facility] Address [address] [facility] [place] [address] Phone [phone] Care Team Providers Care Plsql Developer Name Role Phone Barrett Dacosta MD Primary Care Provider + Encounter Details Date Type Department Care Team (Late st Contact Info) Description 02/06/2023 Telephone Gastroenterology, [facility] [address] [place] [address] Karlee Buitrago MD [address] [place] [address] Allergies No known active allergiesdocumented as of [...] EVERY MORNING 180 Tablet 3 01/28/2023 Active documented as of this encounter (statuses [...] left vertebral artery 06/03/2022 Overview: 05/26 CTA [facility] Type 2 diabetes mellitus wit [...] for review)/esophagitis, martha 4 wk. CVA 05/26 [facility]. Left sided weakness. 05/26 TTE [facility] normal EF Grade 2 Farmer [...] mRNA, LNP-s, No Pre serve, 2-Dose Series ([employer]) 02/20/2021,06/17/2020,05/26/2020 Covid-19, Mrna, Lnp-s, Pf, B ivalent, [...] encounter Miscellaneous Notes * Telephone Encounter - Mimi Randall OSA - 02/07/2023 9:53 AM EST Proc bonifacio'd 02/16. * Telephone Encounter - Mimi Randall OSA - 02/06/2023 12:48 PM EST Sent email to OR for additional time. * Telephone Encounter - Karlee Buitrago MD - 02/06/2023 12:10 PM EST I spoke to the patient and discussed with him his PET scan results and informed him about the recommendations from Surg Onc and Onc to have a bx proven malignancy prior to taking any action on this. Discussed that we can attempt EMR or ESD and if the is no window then will just take a Bx and he agreed. He is on HD MWF.. I would like to this on 02/16 at [facility] OR. Can you please see if we can add him. It will be a 2 hrs case. documented in this encounter Plan of Treatment Upcoming Encounters Date Type Department Care Team (Latest Contact Info) Description 02/09/2023 9:46 AM EST Hospital Encounter OR [facility], OPERATING ROOM [facility], [facility] [address] [place] [address] Brian Payton MD [address] [place] [address] 02/09/2023 9:46 AM EST - 02/09/2023 12:05 PM EST Surgery OR [facility], OPERATING ROOM [facility], [facility] [address] [place] [address] Brian Payton MD [address] [place] [address] ARTERIOVENOUS ANASTOMOSIS OPEN DIRECT ANY SITE 02/16/2023 1:07 PM EST Hospital Encounter OR [facility], Operating Room, [facility] - 4th Floor [address] [place] [address] Karlee Buitrago MD [address] [place] [address] 02/16/2023 1:07 PM EST - 02/16/2023 3:23 PM EST Surgery OR [facility], Operating Room, [facility] - 4th Floor [address] [place] [place] [address] Karlee Buitrago MD [address] [place] [address] ESOPHAGOGASTRODUODENOSCOPY (EGD), FLEXIBLE, TRANSORAL: MUCOSAL RESECTION 03/02/2023 10:30 AM EST Office Visit General Surgery, [facility] [address] [facility] [place] [address] Josefa Li MD [address] [place], [place] [address] 03/08/2023 11:50 AM EST Office Visit Vascular Surgery, [facility] [address] [place] [address] Brian Payton MD [address] [place], [place] [address] 03/16/2023 2:00 PM EST Office Visit Gastroenterolog y, [facility] [address] [place] [address] Muriel Broussard CRNP [address] [place] [address] 04/05/2023 11:30 AM EST Office Visit Vascular Surgery, [facility] [address] [place] [address] Brian aPyton MD [address] [place], [place] [address] 06/29/2023 8:00 AM EDT Office Visit Family Practice [facility] [address] [place] [address] Barrett Dacosta MD [address] [place] [address] 01/23/2024 11:00 AM EST Telemedicine Neurosurgery, [place] [address] [place] [address] Earle Murphy MD [address] [place] [address] Scheduled Procedures Name Priority Associated Diagnoses Date/Ti [...] 11/29/2021, Additional history exists HbA1c 07/13/2023 01/12/2023, 010 05/2022, 08/16/2021, Additional history exists Diabetic Eye [...] patient or by statute hierarchy) Care Teams Plsql Developer Relationship Specialty Start Date End Date Barrett Dacosta MD [address] [place] [address] PCP - General Family Medicine 04/11/18 documented as of this encounter
--- OUTSIDE RECORDS SUMMARY | 2023-03-27 18:34 | External Medical Summary | Summary of Care ---
Author Name Unknown Organization [facility] Address [address] [place] [address] Phone [phone] Care Team Providers Care Retail Loan Officer Name Role Phone Barrett Dacosta MD Primary Care Provider + Reason for Visit * Auth/Cert Specialty Diagnoses / Procedures Referred By Adali t Referred To Contact Diagnoses Abnormal gastrointestinal PET scan Abnormal gastrointestinal PET scan [R94.8] Procedures EGD, FLEXIBLE, ENDO MUCOSAL RESECTION ESOPHAGOGASTRODUODENOSCOPY (EGD), FLEXIBLE, TRANSORAL: MUCOSAL RESECTION Referral ID Status Reason Start Date Expiration Date Visits Re quested Visits Authorized [id number] Encounter Details Date Type Department Care Team (Latest Contact Info) Description 02/16/2023 11:32 AM EST - 02/16/2023 4:10 PM EST Hospital Encounter OR [facility], Operating Room, [facility] - 4th Floor [address] [place] [id number] Karlee Buitrago MD [address] [place] [address] Various: MESERET SHANKAR Discharge Disposition: Home - Self Care Allergies No known active allergiesdocumented as of this encounter (statuses as of 02/17/2023) Medications Medication Sig Dispensed Refills Start Date [...] as of this encounter (statuses as of 02/17/2023) Active Problems Problem Noted Date Diagnosed Date [...] vertebral artery 06/03/2022 Overview: 05/26 CTA [facility] Type 2 diabetes mellitus wit [...] + high grade dysplasia (? Cancer--sent to [facility] for review)/esophagitis, martha 4 wk. CVA 05/26 [facility]. Left sided weakness. 05/26 TTE [facility] normal EF Grade 2 Farmer Dys. Moderate AV sclerosis and calcified mitral valve--stenosis + mod MR.mild MS. No shunt. 04/24 colon-polyp tubular adenoma. Declined f/u. 2012 adenoma. 08/18 TTE-possilbe vegetation. 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 09/05/2022 09/26/2022 Overview: Hx - CVA in May 2022 Glaucoma 06/03/2022 08/18/2022 End stage renal disease 03/01/2022/10/2022 Kidney disease, chronic, sta ge IV (GFR [...] as of this encounter (statuses as of 02/17/2023) Immunizations Name Administration Dates Next Due COVID-19 mRNA, LNP-s, No Pre serve, 2-Dose Series ([employer]) 02/20/2021,06/17/2020,05/26/2020 Covid-19, Mrna, Lnp-s, Pf, B ivalent, [...] Sign Reading Time Taken Comments Blood Pressure 109/59 02/16/2023 4:08 PM EST Pulse 80 02/16/2023 4:08 PM EST Temperature 36.2 C (97.2 F) 02/16/2023 4:08 PM ES T Respiratory Rate 18 02/16/2023 4:08 PM EST Oxygen Saturation 98% 02/16/2023 4:08 PM EST Inhaled Oxygen Concentration - - Weight 61.2 kg (135 lb) 02/16/2023 12:15 PM EST Height 167.6 cm (5' 6") 02/16/2023 12:15 PM EST Body Mass Index 21.79 02/16/2023 12:15 PM EST documented in this encounter H&P Notes * Karlee Buitrago MD - 02/16/2023 12:51 PM EST Endoscopy Pre-Procedure Assessment Name: Ricky Cason Date: 02/16/2023 Time: 12:51 PM Procedure(s): Upper GI Endoscopy; with Indication(s) of possible resection of GEJ nodule Endoscopic Ultrasound; with Indication(s) of FNA/FNB of lesions/tissue within or outside the GI tract Endoscopy Pre-Procedure Assessment: Prior to the procedure, the patient was identified. The patient's history, medications and allergies were reviewed as per the Anesthesia Assessment. The patient is competent. The risks and benefits of the proposed procedure and the planned sedation were discussed with the patient. All questions were answered and informed consent for the procedure was obtained. BP 97/76 | Pulse 86 | Temp 36.2 C (97.2 F) (Tympanic) | Resp 16 | Ht 1.676 m (5' 6") | Wt 61.2 kg (135 lb) | SpO2 97% | BMI 21.79 kg/m | BSA 1.69 m Review of patient's allergies indicates: No Known Allergies Prior to Admission medications Medication Sig Last Dose Discont. Sevelamer Carbonate 800 MG Oral Tablet (Renvela) TAKE 1 TABLET BY MOUTH THREE TIMES A DAY WITH MEALS 02/15/2023 Allopurinol 100 MG Oral Tablet (Zyloprim) TAKE 2 TABLETS BY MOUTH EVERY MORNING 02/15/2023 traMADol HCl 50 MG Oral Tablet (Ultram) Take 2 Tablets by mouth every 6 hours as needed for Pain, Severe. 02/15/2023 Omeprazole 40 MG Oral Capsule Delayed Release (PriLOSEC) Take 1 Capsule by mouth in the morning. 02/15/2023 Sennosides 8.8 MG/5ML Oral Syrup (Senokot) Take 5 mL by mouth daily as needed for Constipation. 02/15/2023 Torsemide 100 MG Oral Tablet (Demadex) Take 1 Tablet by mouth in the morning. 02/15/2023 Metoprolol Succinate ER 25 MG Oral Tablet Extended Release 24 Hour (toPROL XL) 12.5 mg ( half) tablet daily 02/16/2023 Atorvastatin Calcium 40 MG Oral Tablet (Lipitor) Take 1 Tablet by mouth in the morning. 02/15/2023 Belinda-Moose Oral Tablet Take 1 Tablet by mouth in the morning. 02/15/2023 Acetaminophen 325 MG Oral Tablet Take 1 Tablet by mouth every 6 hours as needed. 02/16/2023 Latanoprost 0.005 % Ophthalmic Solution (Xalatan) Instill 1 Drop into both eyes at bedtime. 02/15/2023 Azithromycin 250 MG Oral Tablet (Zithromax Z-James) Take two tablets by mouth on first day, then 1 tablet daily until gone 02/12/2023 Gabapentin 100 MG Oral Capsule (Neurontin) Take 1 Capsule by mouth in the morning and 1 Capsule at noon and 1 Capsule before bedtime. Over 30 Days Aspirin 81 MG Oral Tablet Delayed Release Take 1 Tablet by mouth daily. 02/12/2023 Physical Exam: Mental Status Examination: alert and oriented. Airway Examination: normal oropharyngeal airway and neck mobility. Respiratory Examination: clear to auscultation. CV Examination: Regular rate and rythm, no murmurs. ASA Grade: III - A patient with severe systemic disease. After reviewing the risks and benefits, the patient was deemed in satisfactory condition to undergothe procedure. The anesthesia plan was to use general anesthesia. Patient was explained in detail regarding risks, benefits, limitations and alternatives of the above endoscopic procedure. Risks of intravenous sedation used for procedure were also explained. Risks include, but not limited to perforation, bleeding, infection, respiratory distress, cardiac arrest and . Risk of acute pancreatitis and necrosis if ERCP is done. Patient is also aware about the possibility of missed lesion. Patient's questions were answered. The patient verbalized understandingthe information and agreed to undergo the procedure. Discussed with the patient that he/she is at an explicit higher risk for complications in comparison to other patients Discussed with patient will try EMR/ESD first, if doable then will resect the lesion, if not then will do EUS FNB. Explained risk of perforation needing surgery and he agreed. Patient said if this is not doable he wants to stop HD. Karlee Buitrago MD 02/16/2023 documented in this encounter Procedure Notes * Barrett Dacosta MD - 02/16/2023 12:59 PM ESTAssociated Order(s): UPPER ENDOSCOPIC U/S [facility] Patient Name: Ricky Cason Procedure Date: 02/16/2023 12:59 PM Date of : 1945 Admit Type: Outpatient Note Status: Finalized Date of : 1945 Admit Type: Outpatient Age: 77 Room: OR 2 Gender: Male Note Status: Finalized Procedure: Upper EUS Indications: Esophageal mucosal mass/polyp found on endoscopy, Suspected esophageal neoplasm Providers: Karlee Buitrago MD (Doctor), Marla Flaherty RN Referring MD: Barrett Dacosta MD Medicines: General Anesthesia Complications: No immediate complications. Procedure: Pre-Anesthesia Assessment: - Prior to the procedure, a History and Physical was performed, and patient medications, allergies and sensitivities were reviewed. The patient's tolerance of previous anesthesia was reviewed. - The risks and benefits of the procedure and the sedation options and risks were discussed with the patient. All questions were answered and informed consent was obtained. - Patient identification and proposed procedure were verified prior to the procedure by the physician and the nurse. The procedure was verified in the procedure room. - Pre-procedure physical examination revealed no contraindications to sedation. After obtaining informed consent, the endoscope was passed under direct vision. All instruments were visually inspected immediately before and after removal from the patient to ensure they are fully intact. Throughout the procedure, the patient's blood pressure, pulse, and oxygen saturations were monitored continuously. The was introduced through the mouth, and advanced to the second part of duodenum. After obtaining informed consent, the endoscope was passed under direct vision. All instruments were visually inspected immediately before and after removal from the patient to ensure they are fully intact. Throughout the procedure, the patient's blood pressure, pulse, and oxygen saturations were monitored continuously. The Endosonoscope was introduced through the mouth, and advanced to the lower third of esophagus. The upper EUS was accomplished without difficulty. The patient tolerated the procedure well. Findings & Specimens: ENDOSONOGRAPHIC FINDING: : A hypoechoic mass was found in the lower third of the esophagus. The lesion was partially circumferential (involving one-half of the lumen circumference). The endosonographic borders were well-defined. The mass measured up to 20 mm in thickness. There was sonographic evidence suggesting invasion into the muscularis propria (Layer 4). Fine needle biopsy was performed. Color Doppler imaging was utilized prior to needle puncture to confirm a lack of significant vascular structures within the needle path. Four passes were made with the 25 gauge ultrasound core biopsy needle using a transesophageal approach. A visible core of tissue was obtained. Touch preps were performed. The cellularity of the specimen was adequate. Final cytology results are pending. Verification of patient identification for the specimen was done by the physician and nurse using the patient's name and date. ENDOSCOPIC FINDING: : A mucosotomy was created 2 cm proximal to the lesion, submucosal tunnel was created, there was clear invasion into the MP layer hence this lesion is not a candidate for any enodscopic resection modalities. Biopsies were taken with a cold forceps for histology. The pathology specimen was placed into Bottle A. Impression: - A firm distal esophageal mucosal nodule with submucosal invasion into the MP was found, invasion confirmed with direct endoscopic visualization, not a candidate for endoscopic resection. This was staged T2 N0 Mx by endosonographic criteria. The staging applies if malignancy is confirmed. Fine needle biopsy performed. Recommendation: - Discharge patient to home. - Await cytology results and await path results. - Will discuss with Thoracic surgery again after path is reviewed. - Return to referring physician. - Clear liquid diet today, then advance as tolerated to full liquid diet for 1 day then soft for 2 days. Karlee Buitrago MD 02/16/2023 3:03:25 PM This report has been signed electronically. Estimated Blood Loss: Estimated blood loss: none. documented in this encounter Nursing Notes * Marla Flaherty RN - 02/16/2023 2:37 PM EST EGD with attempted ESD of GE junction mass and FNA of mass performed. Sedated by [employer]KINDERGARTEN TEACHER. See anesthesia record for VS and medications given. Pt tolerated procedure well with minimal gagging. Abd soft. Airway patent. Pt to recovery on L side with HOB elevated. Report to recovery room nurse. Bedside cleaning done by Jerad Bello . * Marla Flaherty RN - 02/16/2023 2:15 PM EST FNA of GE junction mass completed x 4 passes with cytology. * Marla Flaherty RN - 02/16/2023 1:44 PM EST DDAVP ordered and obtained from pharmacy and given by [employer]KINDERGARTEN TEACHER per Dr. Buitrago. documented in this encounter Miscellaneous Notes * Pt Handout (on AVS) - Heidi Aguilar RN - 02/16/2023 3:25 PM EST Images from the original note were not included. [id number] Full Liquid Diet A full liquid diet is a middle step between a clear liquid diet and eating solid foods. A clear liquid diet allows only liquids you can see through. A full liquid diet allows thicker liquid foods, aslisted below. It can be anything that is liquid at room temperature. The full liquid diet may be used before or after surgery. Or it may be used if you have a digestive illness. It's also used beforesome medical tests. It's easy to digest and leaves little food in the stomach and intestines. A full liquid diet meets calorie and protein needs for your body with liquids only. If it's to be used for more than 5 days, your healthcare provider or dietitian may also order high-protein, high-calorie liquid supplements. These will give you extra vitamins and minerals. You may include the itemsbelow on a full liquid diet. Adults Adults should drink a total of 2 to 3 quarts of liquid per day. It may be easier to drink small frequent servings rather than a few large ones. People with severe kidney or heart disease may need to limit the amount of fluid they take in. Check with your provider. Cereals and soups. Creamy hot breakfast cereals (wheat or rice) thinned with milk, pureed soups (including pureed meats, bland vegetables, and white potatoes), tomato puree. Desserts. Gelatin, whipped topping, custard-style yogurt, pudding, custard, plain ice cream, sherbet, sorbet, frozen fruit juice bars. Drinks. Coffee, tea, cream, milk, milkshakes, fruit and vegetable juices, sodas, mineral water (plain or flavored), liquid gelatin, electrolyte replacement sports drinks. Other items. Salt, mild-flavored seasonings, chocolate flavoring, gravy, margarine, sugar, syrup, jelly, honey, hard candy (to suck on). Children Follow the healthcare provider?s instructions. Young children who are eating solid foods may be able to have the items listed above without problems. Be sure to follow these safety measures: Don't give hard candies to young children. The candies may cause choking. Children under 1 year old. Don't give cow's milk or honey. It may cause illness. Children under 2 years old. Ask your child?s provider if you should supplement your child?s dietwith oral rehydration solutions, which have electrolytes. You can buy these drinks at pharmacies and grocery stores. You don?t need a prescription. Children over 1 year old. Limit milk to 2 or 3 cups per day. Too much milk can make your child less hungry for other foods. Last Reviewed Date: 08/04/202119990772-2365 The [employer]. All rights reserved. This information is not intended as a substitute for professional medical care. Always follow your healthcare professional's instructions. * Pt Handout (on AVS) - Priscilla Cornell RN - 02/16/2023 3:05 PM EST Images from the original note were not included. [id number] Clear Liquid Diet Clear liquids are any liquid that you can see through. They are also very easy to digest. You may be put on a clear liquid diet if you are recovering from irritation or infection of the stomach or digestive tract. This diet may also be used before surgery or special procedures such as a colonoscopy. You shouldn't be on this diet for more than 3 days. Below are some clear liquids you can have on this diet. Adults and children older than 2 years Adults should drink a total of 2 to 3 quarts of liquid per day. It may be easier to drink small frequent servings rather than a few large ones. Clear liquids can include: Clear fruit juices without pulp. Apple, white grape, and cranberry juice; clear fruit drinks. Beverages. Sports drinks, sodas (no cola or root beer), mineral water (plain or flavored), tea, black coffee, liquid gelatin (add twice the advised amount of water). Soups. Clear broth. Desserts. Plain gelatin, frozen fruit juice bars without pulp or fruit pieces. Children younger than 2 years Oral rehydration fluids are available at drugstores and most grocery stores. You don?t need a prescription. Last Reviewed Date: 09/03/202119990753-2926 [employer]. All rights reserved. This information is not intended as a substitute for professional medical care. Always follow your healthcare professional's instructions. documented in this encounter Plan of Treatment Upcoming Encounters Date Type Department Care Team (Late st Contact Info) Description 03/02/2023 10:30 AM EST Office Visit General Surgery, [facility] [address] [place] [address] Josefa Li MD [address] [place] [address] 03/08/2023 11:50 AM EST Office Visit Vascular Surgery, [facility] [address] [place] [address] Brian Payton MD [address] [place] [address] 03/16/2023 2:00 PM EST Office Visit Gastroenterology, [facility] [address] [place] [address] Muriel Broussard CRNP [address] [place] [address] 04/05/2023 11:30 AM EST Office Visit Vascular Surgery, [facility] [address] [place] [address] Brian Payton MD [address] [place] [address] 06/29/2023 8:00 AM EDT Office Visit Family Practice [facility] [address] [place] [address] Barrett Dacosta MD [address] [place] [address] 01/23/2024 11:00 AM EST Telemedicine Neurosurgery, [place] [address] [place] [address] Earle Murphy MD [address], [place] [id number] Pending Results Name Type Priority Associated Diagnoses Date /Time SURGICAL PATHOLOGY Pathology Routine 2022 2:12 PM EST CYTOLOGY Pathology Routine 02/16/2023 2:5 5 PM EST Scheduled Orders Name Type Priority Associated Diagnoses Orde r Schedule SURGICAL PATHOLOGY Pathology Routine One Ti me for 1 Occurrences starting 02/16/2023 until 02/16/2023, 1 completed CYTOLOGY Pathology Routine One Time for 1 Occurrences starting 02/16/2023 until 02/16/2023 Scheduled Procedures Name Priority Associated Diagnoses Date/Ti [...] Not on filedocumented as of this encounter Procedures Procedure Name Priority Date/Time Associated Diagnosis Comments US ENDOSCOPIC Routine 02/16/2023 2:11 PM EST UPPER ENDOSCOPIC U/S 02/16/2023 12:59 PM EST GLUCOSE METER, POINT OF CARE DANIELA 02/16/2023 12:33 PM EST POTASSIUM STAT 02/16/2023 12:28 PM EST documented in this encounter Results * US ENDOSCOPIC (02/16/2023 2:11 PM EST) Narrative Scheduling, Silent - 02/16/2023 2:11 PM EST This is an imaging study not interpreted or resulted by a [facility] or [facility] contracted radiologist. Karlee Buitrago MD RAD ULTRASOUND * UPPER ENDOSCOPIC U/S (02/16/2023 12:59 PM EST) 02/16/2023 12:5 9 PM EST Narrative Procedure Note Barrett Dacosta MD - 02/16/2023 12:59 PM EST [facility] Patient Name: Ricky Cason Procedure Date: 02/16/2023 12:59 PM Date of : 1945 Admit Type: Outpatient Note Status:Finalized Date of : 1945 Admit Type: Outpatient Age: 77 Room: OR 2 Gender: Male Note Status: Finalized Procedure: Upper EUS Indications: Esophageal mucosal mass/polyp found on endoscopy,Suspected esophageal neoplasm Providers: Karlee Buitrago MD (Doctor), Marla Flaherty RN Referring MD: Barrett Dacosta MD Medicines: General Anesthesia Complications: No immediate complications. Procedure: Pre-Anesthesia Assessment: - Prior to the procedure, a History and Physicalwas performed, and patient medications, allergies and sensitivities werereviewed. The patient's tolerance of previous anesthesia was reviewed. - The risks and benefits of the procedure and thesedation options and risks were discussed with the patient. All questions wereanswered and informed consent was obtained. - Patient identification and proposed procedurewere verified prior to the procedure by the physician and the nurse. The procedure wasverified in the procedure room. - Pre-procedure physical examination revealed nocontraindications to sedation. After obtaining informed consent, the endoscope waspassed under direct vision. All instruments were visually inspected immediatelybefore and after removal from the patient to ensure they are fully intact. Throughoutthe procedure, the patient's blood pressure, pulse, and oxygen saturations weremonitored continuously. The was introduced through the mouth, and advanced to thesecond part of duodenum. After obtaining informed consent, the endoscope waspassed under direct vision. All instruments were visually inspected immediatelybefore and after removal from the patient to ensure they are fully intact. Throughoutthe procedure, the patient's blood pressure, pulse, and oxygen saturations weremonitored continuously. The Endosonoscope was introduced through the mouth, andadvanced to the lower third of esophagus. The upper EUS was accomplished withoutdifficulty. The patient tolerated the procedure well. Findings & Specimens: ENDOSONOGRAPHIC FINDING: : A hypoechoic mass was found in the lower third of the esophagus. Thelesion was partially circumferential (involving one-half of the lumen circumference). Theendosonographic borders were well-defined. The mass measured up to 20 mm in thickness. There wassonographic evidence suggesting invasion into the muscularis propria (Layer 4). Fine needle biopsywas performed. Color Doppler imaging was utilized prior to needle puncture to confirm a lack ofsignificant vascular structures within the needle path. Four passes were made with the 25 gauge ultrasound corebiopsy needle using a transesophageal approach. A visible core of tissue was obtained.Touch preps were performed. The cellularity of the specimen was adequate. Final cytology results arepending. Verification of patient identification for the specimen was done by the physician and nurseusing the patient's name and date. ENDOSCOPIC FINDING: : A mucosotomy was created 2 cm proximal to the lesion, submucosaltunnel was created, there was clear invasion into the MP layer hence this lesion is not a candidate forany enodscopic resection modalities. Biopsies were taken with a cold forceps for histology.The pathology specimen was placed into Bottle A. Impression: - A firm distal esophageal mucosal nodule withsubmucosal invasion into the MP was found, invasion confirmed with direct endoscopicvisualization, not a candidate for endoscopic resection. This was staged T2 N0 Mx byendosonographic criteria. The staging applies if malignancy is confirmed. Fineneedle biopsy performed. Recommendation: - Discharge patient to home. - Await cytology results and await path results. - Will discuss with Thoracic surgery again afterpath is reviewed. - Return to referring physician. - Clear liquid diet today, then advance astolerated to full liquid diet for 1 day then soft for 2 days. Karlee Buitrago MD 02/16/2023 3:03:25 PM This report has been signed electronically. Estimated Blood Loss: Estimated blood loss: none. Barrett Dacosta MD GASTRO UPPER * GLUCOSE METER, POINT OF CARE (02/16/2023 12:33 PM EST) Glucose Meter 85 70 - 120 mg/dL 02/16/2023 12:36 PM EST [facility] Blood Whole blood specimen / Unknown 02/16/2023 12:33 PM EST 02/16/2023 12:36 PM EST Karlee Buitrago MD LAB POINT OF CARE T EST DOCKED DEVICE UNSOLICITED RESULTS Performing Organization Address City/[facility]/ZIP Co de Phone Number [facility] [address] [place] [address] * POTASSIUM (02/16/2023 12:28 PM EST) Potassium 4.6 3.5 - 5.1 mmol/L 02/16/2023 12:49 PM EST [facility] Blood Venous blood specimen / Unknown Venipuncture / Unknown 02/16/2023 12:28 PM EST 02/16/2023 12:30 PM EST Karlee Buitrago MD LAB BLOOD ORDERABLE S [address] [address] documented in this encounter Administered Medications Inactive Administered Medications - up to 3 most recent administrations Medication Order MAR Action Action Date Dose Rate Site NSS infusion Intravenous, at 10 mL/hr, CONTINUOUS, Starting on Laura 02/16/23 at 1315, Until Laura 02/16/23 at 2010 Restarted 02/16/2023 2:01 PM EST Rate Change 02/16/2023 1:29 PM EST 100 mL/hr New Bag 02/16/2023 12:57 PM EST 20 mL/hr documented in this encounter Active and Recently Administered Medications Times are shown in EST. Scheduled Medication Order 02/14/2023 02/15/2023 02/16/2023 DESMOpressin (Ddavp) inj 18.36 mcg 18.36 mcg (0.3 mcg/kg 61.2 kg), Subcutaneous, ONCE, On Laura 02/16/23 at 1400, For 1 dose 1400 (Due) Continuous Medication Order 02/14/2023 02/15/2023 02/16/2023 NSS infusion Intravenous, at 10 mL/hr, CONTINUOUS, Starting on Laura 02/16/23 at 1315, Until Laura 02/16/23 at 2010 1257 (New Bag - Prov ider: Saba Cifuentes CRNA)1329 (Rate Change - Provider: Saba Cifuentes CRNA)1400 (Paused - Provider: Saba Cifuentes CRNA - Comment: Switch to gravity)1401 (Restarted - Provider: Saba Cifuentes CRNA - Comment: bolus per dr Blair)1441 (Anes Intra-Op Fluid - Provider: Saba Cifuentes CRNA) documented in this encounter Advance Directives Latest [...] or by statute hierarchy) Care Teams Retail Loan Officer Relationship Specialty Start Date End Date Barrett Dacosta MD [address] [place] [address] PCP - General Family Medicine 04/11/18 documented as of this encounter
--- OUTSIDE RECORDS SUMMARY | 2023-03-27 18:34 | External Medical Summary ---
Author Name Unknown Address Unknown Organization : Laboratory Report Ordering Provider Test Date Status KRIS BRYANT 02/09/2023 09:15:07 Final Observation Date Value Abnormality Reference (Units ) Status Glucose Point of Care 02/09/2023 09:15:07 96 70-120 (mg/dL) Final Performing Location
--- OUTSIDE RECORDS SUMMARY | 2023-03-27 18:34 | External Medical Summary | Summary of Care ---
Author Name Unknown Organization [facility] Address [address] [facility] [place] [address] Phone [phone] Care Team Providers Care Cutter Hot Knife Name Role Phone Barrett Dacosta MD Primary Care Provider + Encounter Details Date Type Department Care Team (Late st Contact Info) Description 02/06/2023 Telephone Gastroenterology, [facility] [address] [place] [phone] Karlee Buitrago MD [address] [place] [phone] Allergies No known active allergiesdocumented as of this encounter (statuses as of 02/06/2023) Medications Medication Sig Dispensed Refills Start Date [...] as of this encounter (statuses as of 02/06/2023) Active Problems Problem Noted Date Diagnosed Date [...] vertebral artery 06/03/2022 Overview: 05/26 CTA [facility] Type 2 diabetes mellitus wit [...] review)/esophagitis, martha 4 wk. CVA 05/26 [facility]. Left sided weakness. 05/26 TTE [facility] normal EF Grade 2 Farmer Dys. Moderate AV sclerosis and calcified mitral valve--stenosis + mod MR.mild MS. No shunt. 04/24 colon-polyp tubular adenoma. Declined f/u. 2012 adenoma. 08/18 TTE-possilbe vegetation. Mild LVH History of prostate cancer 01/09/2013 Overview: S/p resection Dr Whitehead [facility] HTN, goal below 140/90 06/04/2012 Gout 06/04/2012 Overview: 07/18 indomethicin non-form documented as of this encounter (statuses as of 02/06/2023) Resolved Problems Problem Noted Date Diagnosed Date [...] as of this encounter (statuses as of 02/06/2023) Immunizations Name Administration Dates Next Due COVID-19 mRNA, LNP-s, No Pre serve, 2-Dose Series (Jdguanjia) 02/20/2021,06/17/2020,05/26/2020 Covid-19, Mrna, Lnp-s, Pf, B ivalent, 30 Mcg, IM, 12 yrs and above (Jdguanjia) 12/24/2021 Hepatitis B Vaccine, Recombi nant, Adjuvanted, [...] would like to this on 02/16 at [facility] OR. Can you please see if we can add him. It will be a 2 hrs case. documented in this encounter Plan of Treatment Upcoming Encounters Date Type Department Care Team (Latest Contact Info) Description 02/09/2023 10:06 AM EST Hospital Encounter OR [facility], OPERATING ROOM [facility], [place] [address] [place], [place] [phone] Brian Payton MD [address], [place] [phone] 02/09/2023 10:06 AM EST - 02/09/2023 12:25 PM EST Surgery OR [facility], OPERATING ROOM [facility], [facility] [address], [place] [phone] Brian Payton MD [address], [place] [phone] ARTERIOVENOUS ANASTOMOSIS OPEN DIRECT ANY SITE 03/02/2023 10:30 AM EST Office Visit General Surgery, [facility] [address] [place] [address] Josefa Li MD [address] [place] [address] 03/08/2023 11:50 AM EST Office Visit Vascular Surgery, [facility] [address] [place] [address] Brian Payton MD [address] [place] [address] 03/16/2023 2:00 PM EST Office Visit Gastroenterology, [facility] [address] [place] [address] Muriel Broussard CRNP [address] [place] [address] 04/05/2023 11:30 AM EST Office Visit Vascular Surgery, [facility] [address] [place] [address] Brian Payton MD [address] [place] [address] 06/29/2023 8:00 AM EDT Office Visit Family Practice [facility] [address] [place] [address] Barrett Dacosta MD [address] [place] [address] 01/23/2024 11:00 AM EST Telemedicine Neurosurgery, [place] [address], [place] [phone] Earle Murphy MD [address], [place] [phone] Scheduled Procedures Name Priority Associated Diagnoses Date/Ti me ARTERIOVENOUS ANASTOMOSIS OPEN DIRECT ANY SITE ESRD on dialysis (HCC) 02/09/2023 10:06 AM EST COLONOSCOPY FLEXIBLE PROXIMAL DIAGNOSTIC Recall History of colonic polyps Health Maintenance [...] patient or by statute hierarchy) Care Teams Cutter Hot Knife Relationship Specialty Start Date End Date Barrett Dacosta MD [address] [place] [id number] PCP - General Family Medicine 04/11/18 documented as of this encounter
--- OUTSIDE RECORDS SUMMARY | 2023-03-27 18:34 | External Medical Summary | Summary of Care ---
Author Name Unknown Organization [facility] Address [address] [place] [address] Phone [phone] Care Team Providers Care Ophthalmic Dispenser Name Role Phone Barrett Dacosta MD Primary Care Provider + Reason for Visit * Auth/Cert Specialty Diagnoses / Procedures Referred By Adali t Referred To Contact Diagnoses ESRD on dialysis (HCC) ESRD on dialysis (HCC) [N18.6, Z99.2] Procedures AV ACCESS, DIRECT ANASTOMOSIS ARTERIOVENOUS ANASTOMOSIS OPEN DIRECT ANY SITE Referral ID Status Reason Start Date Expiration Date Visits Re quested Visits Authorized [id number] Encounter Details Date Type Department Care Team (Latest Contact Info) Description 02/09/2023 8:33 AM EST - 02/09/2023 1:41 PM EST Hospital Encounter [facility], OPERATING [facility] [address] [place] [address] Brian Payton MD [address], [place] [id number] Discharge Disposition: Home - Self Care Allergies No known active allergiesdocumented as of this encounter (statuses as of 02/10/2023) Medications Medication Sig Dispensed Refills Start Date [...] as of this encounter (statuses as of 02/10/2023) Active Problems Problem Noted Date Diagnosed Date Hypertensive CKD, ESRD on dialysis 12/16/2022 Altered bowel elimination due to intestinal osto my 12/16/2022 Medical home patient encounter 09/28/2022 Colostomy status 09/26/2022 Overview: Sigmoid colostomy by Dr. Bang on 09/09/22 SSS (sick sinus syndrome) 09/05/2022 Atrioventricular block, [facility]itz type 1, [facility] 09/05/2022 1st degree AV block 09/05/2022 Anemia due to chronic kidney disease, on chronic dialysis 06/03/2022 Aneurysm of left vertebral artery 06/03/2022 Overview: 05/26 CTA [facility] Type 2 diabetes mellitus wit h chronic [...] + high grade dysplasia (? Cancer--sent to [facility] for review)/esophagitis, martha 4 wk. CVA 05/26 [facility]. Left sided weakness. 05/26 TTE [facility] normal EF Grade 2 Farmer Dys. Moderate AV sclerosis and calcified mitral valve--stenosis + mod MR.mild MS. No shunt. 04/24 colon-polyp tubular adenoma. Declined f/u. 2012 adenoma. 08/18 TTE-possilbe vegetation. Mild LVH History of prostate cancer 01/09/2013 Overview: S/p resection Dr Whitehead [facility] HTN, goal below 140/90 06/04/2012 Gout 06/04/2012 Overview: 07/18 indomethicin non-form documented as of this encounter (statuses as of 02/10/2023) Resolved Problems Problem Noted Date Diagnosed Date [...] as of this encounter (statuses as of 02/10/2023) Immunizations Name Administration Dates Next Due COVID-19 mRNA, LNP-s, No Pre serve, 2-Dose Series (Ayudarum) 02/20/2021,06/17/2020,05/26/2020 Covid-19, Mrna, Lnp-s, Pf, B ivalent, [...] Sign Reading Time Taken Comments Blood Pressure 116/87 02/09/2023 1:30 PM EST Pulse 78 02/09/2023 1:15 PM EST Temperature 36.5 C (97.7 F) 02/09/2023 1:15 PM ES T Respiratory Rate 19 02/09/2023 1:00 PM EST Oxygen Saturation 99% 02/09/2023 1:30 PM EST Inhaled Oxygen Concentration - - Weight 61.2 kg (135 lb) 02/09/2023 8:47 AM EST Height 167.6 cm (5' 6") 02/09/2023 8:47 AM EST Body Mass Index 21.79 02/09/2023 8:47 AM EST documented in this encounter Discharge Summaries * Anna Huff MD - 02/09/2023 12:45 PM EST [facility] [address] [facility] [id number] OUTPATIENT SURGERY DISCHARGE SUMMARY NOTE Name: Ricky Cason Location: [facility] Date: 02/09/2023 Time: 12:46 PM Date and Time of Procedure: 02/09/2023 at 12:46 PM Surgery Date: 02/09/2023 Procedure(s): ARTERIOVENOUS ANASTOMOSIS OPEN DIRECT ANY SITE (Left) Surgeon: Brian Payton MD Discharge Diagnosis: ESRD on dialysis (HCC) After examination of this patient, I have determined he is ready for discharge to home when the patient meets criteria. Discharge instructions were given to the patient. Anna Huff MD Vascular Surgery Fellow documented in this encounter Discharge Instructions * Discharge Instr - AVS* Anna Huff MD - 02/09/2023 12:45 PM EST Discharge Date: 02/09/2023 You may call Brian Payton MD of the department of Vascular Surgery at the [facility] office in [place] [phone] option 2. After business hours, you may call with emergency questions to [phone] and ask that the on-call Vascular Surgery provider be paged. The information below provides you with the instructions and the list of medications you need to betaking following discharge from the hospital. If you have any questions, please ask before leaving.Please carry this letter with you when you see your doctor in the clinic. If you have questions, you can reach us at the numbers above. Brief summary of your inpatient care: Arteriovenous fistula repair Your primary diagnosis at discharge was end stage renal disease. Your doctors during this hospitalization included: Brian Payton MD Inpatient test results pending: None Complications: none significant Advance Directive Documented: Advance Directive Does the Patient have an Advance Directive? No SUPPLEMENTAL INSTRUCTIONS: Patient Instructions It is normal to have swelling in the surgical area. To help control this swelling you can elevate your arm on a pillow (although, you should not do this if it causes you increased discomfort in your hand). The fistula or graft cannot be used until the MD has given approval. Generally, a graft will be ready to use in 2 weeks, and a fistula will be ready to use in 6-8 weeks If you go home with bandages on your incision, please remove the bandages 2 days after your surgery. All incisions are closed with sutures (stitches), which either dissolve or are removed by a member of your health care team 14-21 days after surgery. Thin adhesive strips may be placed across incisions to help hold them together. The strips normallywill loosen and come off on their own in a few weeks. Do not remove the strips for at least two weeks after surgery. Avoid lifting more than 5-10 pounds with the affected extremity for two weeks following the procedure. You may shower, wash and dry the incision. Do not immerse the incision in water - this includes swimming, hot tubs or bath tubs. You may drive when you no longer are taking narcotic pain medications and you feel you can quickly respond to situations that will not place others in jeopardy. Monitor the incision for signs and symptoms of infection, including redness, drainage or increased pain. If you develop a fever, contact [phone] to schedule an evaluation. It is important that you notify our office if you are having numbness and significant pain in the extremity in which you have just had surgery. Care of the new fistula In order for dialysis personnel to use the fistula it must dilate or enlarge to a size that will accommodate large bore needles. This is best achieved by the patient exercising the access arm. You, the patient, should start learning how to care for your access immediately after surgery by followingthe protocol below. Step 1 Keep arm elevated (above your heart) starting immediately after surgery and for the next 1-2 weeks or until the swelling is diminished. Wiggle your fingers and clinch your fist 10 times every hour, while awake, for the first 5-7 days. Also, bend and straighten at the elbow to regain normal range ofmotion. These exercises are designed to promote circulation in the fingers and aid in draining awaythe excess fluid accumulation in the immediate area. If numbness is present, sensation will return sooner if the exercises are done as prescribed. If symptoms of numbness, tingling, weakness, and or coldness persist, without improvement, a returnvisit to your surgeon is warranted as soon as possible as this can be a sign of a more serious problem. Step 2 Exercising your arm before and after surgery may encourage a fistulas development and maturation. Some physicians believe exercising the fistula helps it strengthen and develop. Once mature, a fistula is easier for the dialysis staff to stick for your treatment. Below is an exercise technique that may be used to help develop your fistula. Ball Squeeze As soon as the pain from surgery has subsided, start forearm exercises by squeezing a rolled-up washcloth or a stress ball. Squeeze, and release rapidly for 10 minutes, 6 times a day. Step 3 Each day, using your opposite hand, feel over fistula for the thrill or vibration that is normally present. Also bring your access arm up to your ear and you may be able to hear the bruitor buzzing-the rushing ocean sound. If either one of these are not present, call the dialysis unit for instructions. This is a sign that your fistula is about to clot or already has clotted and requires medical attention. Healthcare personnel: 1. Avoid blood draws or IV starts in the access arm. 2. Avoid blood pressure readings in the access arm. 3. Avoid use of tourniquets or other pressure holding devices after needle removal when your fistula is brand new (i.e. in the first 6 weeks). Manual pressure is best, preferably by the patient. The patient (you) should : Avoid wearing tight constrictive clothing over that arm. Avoid wearing jewelry that is tight, such as a watch on the access arm. Avoid carrying heavy objects. Avoid purse straps over the fistula. Avoid sleeping on the arm or keeping it bent for extended periods of time. For routine questions, your [facility] Vascular Surgery Team prefers the use of Lender Sentinel. L[employer] Sentinel is an online internet tool to help you meet your health care needs quickly by providing a secure, confidential way to view your health records and communicate with your [facility] Vascular SurgeryTeam. To sign up for [employer]inel go to [email or web address], "Click" Callao Now on the right side of the screen and complete the user registration information. documented in this encounter H&P Notes * Declan Wallace MD - 02/09/2023 9:09 AM EST HISTORY & PHYSICAL EXAMINATION - Vascular Surgery [facility]-[address] [address] Name: Ricky Cason Location: [facility] OR Date: 02/09/2023 Time: 9:09 AM PRESENTING PROBLEM: left AVF creation Interval HPI: Ricky Cason is a 77 year old male history of chronic renal failure on hemodialysis presenting for AVF creation. Today patient reports that he feels well. He has been receiving hemodialysis on M,W,F and received it yesterday. He currently receives dialysis through a right [facility] T[facility]. He endorses some chronic numbness and weakness in his left arm due to a prior stroke. He denies any recent fever, chills, cough, shortness of breath, or chest pain He does not take any anticoagulation, but does take a baby aspirin daily. Per HPI from Clinic Note 01/04/2023: Ricky Cason is a 77 year old male. 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 Miller) @ [facility] Current issues with TDC: No Patient is RIGHT handed No prior ICD/PPM No chronic pain/numbness of fingers/hands/arms He does have residual LUE/LLE weakness, from his stroke Pt broke his RIGHT hip in Nov, underwent ORIF @ [facility] 12/03/22 Still recovering from fracture Using walker Doing PT, has advanced to doing stairs Dr. Srikanth Quan, [facility], is patient's [employer] FAMILY HISTORY: Pertinent family history is listed below. No current facility-administered medications for this encounter. Current Outpatient Medications Medication Sevelamer Carbonate 800 MG Oral Tablet (Renvela) Azithromycin 250 MG Oral Tablet (Zithromax Z-James) Allopurinol 100 MG Oral Tablet (Zyloprim) Gabapentin 100 MG Oral Capsule (Neurontin) traMADol HCl 50 MG Oral Tablet (Ultram) Omeprazole 40 MG Oral Capsule Delayed Release (PriLOSEC) Sennosides 8.8 MG/5ML Oral Syrup (Senokot) Torsemide 100 MG Oral Tablet (Demadex) Metoprolol Succinate ER 25 MG Oral Tablet Extended Release 24 Hour (toPROL XL) Atorvastatin Calcium 40 MG Oral Tablet (Lipitor) Aspirin 81 MG Oral Tablet Delayed Release Belinda-Moose Oral Tablet Acetaminophen 325 MG Oral Tablet Latanoprost 0.005 % Ophthalmic Solution (Xalatan) Review of patient's allergies indicates: No Known Allergies Patient Active Problem List Diagnosis Code HTN, goal below 140/90 I10 Gout M10.9 History of prostate cancer Z85.46 Routine general medical examination at a health care facility Z00.00 Status post lumbar spinal fusion Z98.1 MEDICATION USE AGREEMENT [id number] Type 2 diabetes mellitus with hemoglobin A1c goal of less than 8.0% ([facility]) E11.9 Persistent proteinuria 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.1 Primary open-angle glaucoma, bilateral, indeterminate stage H40.1134 Type 2 diabetes mellitus with chronic kidney disease on chronic dialysis ([facility]) E11.22, N18.6, Z99.2 Calcification of aorta ([facility]) I70.0 ESRD on dialysis ([facility]) N18.6, Z99.2 Anemia due to chronic kidney disease, on chronic dialysis ([facility]) N18.6, D63.1, Z99.2 Aneurysm of left vertebral artery ([facility]) I72.6 SSS (sick sinus syndrome) ([facility]) I49.5 Atrioventricular block, Mobitz type 1, Wenckebach I44.1 1st degree AV block I44.0 Colostomy status ([facility]) Z93.3 Medical home patient encounter Z00.8 Hypertensive CKD, ESRD on dialysis ([facility]) I12.0, N18.6, Z99.2 Altered bowel elimination due to intestinal ostomy ([facility]) K94.19 Past Medical History: Diagnosis Date Abnormal echocardiogram 08/19/2014 Anemia due to chronic kidney disease, on chronic dialysis ([facility]) 06/03/2022 Anemia in stage 4 chronic kidney disease 02/19/2021 Aneurysm of left vertebral artery ([facility]) 06/03/2022 Benign neoplasm of colon 07/20/12 COLONOSCOPY FLEXIBLE PROXIMAL DIAGNOSTIC performed by Rukhsana Gunter DO at [facility],ADENOMATOUS POLYPS REPEAT COLONOSCOPY IN 5 YEARS Bilateral low back pain without sciatica 02/19/2015 Cerebrovascular accident (CVA) due to thrombosis of right middle cerebral artery ([facility]) 09/05/2022 Hx - CVA in May 2022 Constipation due to opioid therapy 03/29/2018 Diabetes mellitus with nephropathy ([facility]) 04/09/2018 Dyslipidemia, goal LDL below 100 11/06/2013 Dyslipidemia, goal LDL below 130 11/07/2013 Gout 06/04/2012 High blood pressure HTN, goal below 140/80 06/04/2012 Internal hemorrhoids 06/04/2012 Kidney disease, chronic, stage IV (GFR 15-29 ml/min) ([facility]) 02/19/2021 Malignant melanoma of face ([facility]) 06/04/2012 Malignant melanoma of skin of other [...] 11/27/2017 Past Surgical History: Procedure Laterality Date COLONOSCOPY, DIAGNOSTIC (RECTUM) 07/20/2012 COLONOSCOPY FLEXIBLE PROXIMAL DIAGNOSTIC performed by Rukhsana Gunter DO at [facility],ADENOMATOUS POLYPS REPEAT COLONOSCOPY IN 5 YEARS COLONOSCOPY, DIAGNOSTIC (RECTUM) 05/03/2018 diverticulosis sigmoid colon/biopsies show adenomatous polyps/recall 3 years/COLONOSCOPY FLEXIBLE PROXIMAL DIAGNOSTIC performed by Rukhsana Gunter DO at END[facility]COPY [facility] COLONOSCOPY/REMOVE LESION 2009 FRAGMENT KIDNEY STONE BY SHOCK WAVE 2008? ric INJECTION LUMBAR/SACRAL 03/28/2014 INJECTION SPINE LUMBAR OR SACRAL performed by Rochelle Latasha Mcpherson DO at OR [facility] LAPAROSCOPY, W/ INSERT INTRAPERITONEAL CATH N/A 01/12/2022 LAPAROSCOPIC INSERTION INTRAPERITONEAL CANNULA OR CATHETER performed by Florentin Will MD at OR [facility] LUMBAR / SACRAL EPIDURAL, SINGLE LEVEL 08/08/2016 INJECTION TRANSFORAMINAL EPIDURAL LUMBAR OR SACRAL performed by Rochelle Latasha Mcpherson DO at OR [facility] LUMBAR / SACRAL EPIDURAL, SINGLE LEVEL 08/25/2016 INJECTION TRANSFORAMINAL EPIDURAL LUMBAR OR SACRAL performed by Vicente Latasha Mcpherson DO at OR [facility] LUMBAR SPINE FUSION W/BONE GRAFT 06/11/2014 Dr Corrales MELANOMA AJCC STAGE 0 OR 1A DOCUMENTED 1999 face NEEDLE/PUNCH BIOPSY OF PROSTATE 11/06/2012 Prostate,Needle/Punch Biopsy OTHER 09/16/2022 Permacath placement for HD @[facility] OR COLOSTOMY/SKIN LEVEL CECOSTOMY 09/09/2022 Dr Bang [facility] OR EXPLORATORY LAPAROTOMY CELIOTOMY W/WO BIOPSY SPX 09/09/2022 Dr Bang [facility]. ex lap for SBO/sigmoid colostomy, removal PD catheter. OR REVJ TOT HIP ARTHRP FEM ONLY W/WO ALGRFT Right 12/03/2022 PROSTATECTOMY, RETROPUBIC RADICAL, LAP 01/07/2013 ROBOTIC LAPAROSCOPIC PROSTATECTOMY RETROPUBIC RADICAL performed by Cordell Whitehead MD at OR [facility] REMOVE CATARACT, INSERT LENS PROSTH 2007 bilateral Family History Problem Relation Age of Onset Hypertension Father Hypertension Mother Hypertension Brother X2 Hypertension Sister X6 Heart Disorder Mother IA Heart Disorder Father IA Heart Disorder Brother X2 IA Social History Socioeconomic History Marital status: Spouse name: Not on file Number of children: 1 Years of education: Not on file Highest education level: Not on file Occupational History 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 GENERAL MULTI-SYSTEM PHYSICAL EXAM: Vital Signs: There were no vitals taken for this visit. GENERAL: Normal grooming habits, no acute distress, and appears stated age. NECK: No masses. RESPIRATORY: respiratory effort normal and breath sounds normal. CARDIOVASCULAR: no heart murmurs and no edema. GASTROINTESTINAL: flat, no masses present, and no tenderness. SKIN: no ulcers, no rash, no induration, and capillary refill normal. PSYCHIATRIC: orientation to time, place and person normal and recent and remote memory normal. EYES: conjunctivae normal, eye lids normal, and pupils normal. NEUROLOGIC: Motor function intact and Sensory exam intact EXTREMITIES : LUE: Palpable radial pulse, SILT over r/u/m distributions, able to make OK, abduct/adduct fingers, give thumbs up. DIAGNOSTIC STUDIES: No imaging results in the last 72 hours IMPRESSIONS: Ricky Cason is a 77 year old male with history of chronic renal failure on hemodialysis who presents today of left AVF creation. Patient was counseled on concept of AVF, maturation times of AVF, failure rates of AVF to fully mature, correction failure rates of AVF, physiologic reality of arterial steal due to AVF, and both concept & need of fistulograms. PLAN: - OR today for left AVF creation - 2 g ancef - NPO - RTC 4 wks & 8 wks post op @ [facility] for incision/AVF checks: 03/08/23 and 04/05/23 -Continue ASA 81 mg for platelet inhibition - Continue Lipitor 40 mg for dyslipidemia/hyperlipidemia/pleiotropic benefits Declan Wallace MD OR [facility], OPERATING ROOM [facility] [address] [address] documented in this encounter Nursing Notes * Adarsh Myles RN - 02/09/2023 12:51 PM EST Dual Licensed Skin Assessment completed by myself and laura kelley. The patient is/has a N/A Skin Breakdown (includes non blanchable erythema): Yes - Surgical/Procedural changes only. * Gwendolyn Cleary RN - 02/09/2023 9:28 AM EST Dual Licensed Skin Assessment completed by self and Amari Barry. The patient is/has a N/A Skin Breakdown (includes non blanchable erythema): No * Genevieve Valle RN - 02/08/2023 10:06 AM EST NO ANESTHESIA EVAL REQUESTED PER CASE DOCUMENTATION. Pre-operative chart review completed. Unable to complete anesthesia evaluation d/t already completed by Bud Moise MD Resident 02/08/23 1115. PREOP PATIENT INFORMATION AND EDUCATION: MEDICATION INSTRUCTIONS: The day of surgery/procedure, you may TAKE the following medications with a sip of water up to 2 hours prior to your arrival time: Please follow the pre-operative instructions provided by your vascular surgeon. If you have any questions regarding these instructions please contact your surgeon's office at [phone]. Per vascular: PATIENT PRE-OP INSTRUCTIONS: Surgical Procedure: Creation of LEFT radiocephalic arteriovenous fistula Surgical Date: 02/09/23 Surgeon: Dr. Fito MD Advanced Practitioner: Elmer Bhatt PA-C Clinic phone number: [phone] You will receive a phone call the night before surgery telling you what time to arrive to the Surgery Check-In Unit on the 1st floor of the hospital, Main Entrance. Nothing to eat or drink by mouth after midnight the night before surgery including no food, no gum/hard candy, coffee, tea, other drink, or tobacco product. Continue all of your normal morning medications with a few sips of water on day of surgery unless otherwise instructed. CONTINUE your ASPIRIN, including morning of surgery. 24 hours prior to surgery/procedure DO NOT consume any alcohol. DO NOT use medical marijuana. DO NOT smoke or use tobacco products of any kind after midnight prior to surgery. *Using any of these products may increase your risks of procedural complications. IF IT IS LESS THAN RECOMMENDED STOPPAGE TIME PLEASE STOP AT TIME OF NOTIFICATION. FASTING RECOMMENDATIONS: To reduce risk, it is important for all elective surgery patients to follow the specific fasting guidelines listed below. If you have received more stringent guidelines, please follow the MOST RESTRICTIVE guidelines that you have been provided. Per vascular: Nothing to eat or drink by mouth after midnight the night before surgery including no food, no gum/hard candy, coffee, tea, other drink, or tobacco product. Any drinks given by your surgical service take as directed. THE DAY BEFORE YOUR SURGERY: -Drink plenty of fluid the day before your surgery. Contact your surgeon's office if you develop any of the following within 2 weeks of surgery: A cold Infection Fever Shingles Chicken pox or exposure to chicken pox Open areas such as scrapes, cuts, cooper or other skin conditions Rashes GENERAL INSTRUCTIONS FOR PREPARING FOR SURGERY: BATHING INSTRUCTIONS: Bathe the evening prior to and the morning of surgery/procedure. Cleanse your body using ONLY anti-bacterial soap (eg, Dial, Safeguard) or any specific soap/cleansers and instructions provided by your surgeon (eg, Chlorhexidine). -You should brush your teeth the morning of surgery. Do NOT apply any lotions, powders, sprays, creams, oils, make-up, or deodorants after bathing. No hairspray, or nail yoruba on fingers or toes. Day of surgery/procedure do not use tampons. If you wear contacts wear your eyeglasses if available otherwise bring your contact supplies with you to remove them prior to your surgery/procedure. If you wear glasses or dentures, please bring cases in which you can store them during your surgery. Please remove all piercings and jewelry and leave them at home. Wear comfortable and loose clothing. -Please leave all valuables at home. -If you use a CPAP and are staying overnight, please bring your mask and tubing with you to the hospital. -If you use an assistive mobility device (walker, cane, etc), please label it with your name and bring to hospital. -An escort team driver is required if you are being discharged the same day of the surgery. You should have a responsible adult over the age of 18 [address] drive you home. This person should be present with youin the hospital at the time of discharge and for the first 24 hours after the surgery to support your needs. If you are taking a taxi home, you must have your responsible alliance party accompany you in the taxi ride home at the time of discharge. OR times subject to change. Please check voicemail messages the day/evening before your surgery forany updates. PRE-OP: You will be taken to the pre-op area where your vital signs (blood pressure, pulse and temperature)will be taken. Any preparations that need to be done will be done there. When it is time for your surgery, you will be taken to the operating room. PARENTS OF PEDIATRIC PATIENTS WILL BE ALLOWED TO STAY WITH THEIR CHILDREN UNTIL THEY ARE ESCORTED TO THE OPERATING ROOM OUTPATIENT SURGERY PATIENTS: After your surgery you will be taken to the Same Day Surgery Unit when you are awake and will go home from there. You will get instructions about your home care before you leave. Arrange to have someone drive you home from the hospital. You may not drive for 24 hours after anesthesia. You must havean adult stay with you at home for 24 hours after your operation. This is very important. If you are not able to comply with these guidelines, your Short Stay surgery cannot be done. ADMISSION PATIENTS: After your stay in the recovery area, you will be taken to your room. Your family may visit you in your room based on current visitation policy. If a next day discharge is expected, it is important to make arrangements for a team driver to take you home. Please be aware our visitation policies are subject to change Professionals, attendants, caregivers or family members are allowable visitors for patients with intellectual, developmental or cognitive disabilities, communication barriers or behavioral concerns. Because patients' and families' needs vary, they will be taken into account when applying visitation restrictions. [facility]: Contact # [phone] Directions to Surgical Suite in from the Curt Entrance The Surgical Waiting Room can be found in the Lobby of [facility]. Enter through Main Lobby Entrance and the Waiting Room is directly in front of you. Proceed to check in and give them your name. Directions to Surgical Suite from the East Entrance Enter the East entrance and follow the hallway to the J elevator. Take the J elevator up to Level 1. Continue down the long hallway to the main [facility] Lobby. The Surgical Waiting Room will be on your Right. Proceed to check in and give them your Name. Directions to Surgical Suite from the Parking Garage Enter the [facility] lobby and proceed down the bang to the left. At the end of the bang, turn right. Continue down the long hallway to the main [facility]. The Surgical Waiting Room will be on your Right. Proceed to check in and give them your Name. THANK YOU FOR CHOOSING [facility]! Spoke with patient and verified name and . Patient then wanted this RN to complete rest of call with his . Patient identified by: name/birthdate Person taught: Patient Optime case procedure confirmed with surgical consent and pt Laterality confirmed as Left Surgery date at time of Pre-Surgery Center Encounter: 02/09/23 What procedure is patient having? Left arm arteriovenous fistula creation In an emergency, is patient willing to accept blood products or blood transfusion? Do you need to place a blood bank order? No Anesthesia consent pool notified? N/A Anesthesia evaluation requested per case documentation? No Preop Evaluation Requested? No PATIENT EDUCATION SCREENING Person taught: Spouse Motivation Level: Asks Questions Language Barrier: No Physical Barrier: N/A METHOD: Lecture-telephone interview Patient Preferred Learning Methods: Lecture-Telephone interview Health History interview completed, questions answered, and the following patient instructions provided via telephone interview: Preoperative bathing instructions General preoperative instructions Medication instructions NPO instructions OUTCOME: State / Describe / Explain and Verbalizes understanding of education TT sent to and stating "Patient: Ricky Cason. . Surgery tomorrow at [facility] [place] (Left arm arteriovenous fistula creation). Patient started on Zithromax Z-James 02/06/23 forongoing sinus pain/pressure and thick mucus (clear per pt ) when blowing his nose and that is running down his throat and at times gagging him. Patient's denies patient with any fevers, sob,or any other respiratory issues. Are we okay yo proceed? Thank you. 12:13 PM" TT from stating "Im ok with proceeding 12:18 PM" TT to and stating "-Thank you. I updated patients medications, since seen by vascular along with the Z-james he is now taking Renvela TID with meals-can he take these DOS? 12:21 PM" TT from stating "Yep ok to keep taking 12:24 PM" Patient is aware if no return call from this RN patient may take Z-james and Renvela DOS. documented in this encounter OR Notes * OR Surgeon - Brian Payton MD - 02/09/2023 12:19 PM EST [facility] [place] [address] [facility] [id number] OPERATIVE REPORT Name: Ricky Cason Date: 02/09/2023 Time: 12:19 PM Location: [facility] Service: Vascular Surgery Date of Operation: 02/09/2023 Pre-op Diagnosis: Chronic kidney disease requiring hemodialysis access Post-op Diagnosis: Same Surgeon: rBian Payton MD Assistants: Anna Huff MD Anesthesia: Monitored Local Anesthesia with Sedation Operation: Left wrist radiocephalic arteriovenous fistula creation for hemodialysis Findings: Good arterial inflow. Vein of adequate size for AV fistula. Specimen and Disposition: None Estimated Blood Loss: 25 ml Fluids: 400 ml crystalloid Urine output: None Drains/Implants: None Complications: None Postoperative Condition: Stable Indications and History: This is a 77 year oldzbe-jgqu-ryd male who presents with chronic kidney disease necessitating hemodialysis access creation. An arteriovenous fistula was chosen to provide access. The patient understandsthe risks, benefits and alternatives of the procedure and agrees to proceed with the fistula creation. Description of Operation: The patient was identified and the procedure verified. A time-out was held and the correct procedure and correct site were confirmed with the consent. The patient was given anesthesia and the patients left arm was prepped and draped in the usual sterile fashion. A longitudinal incision was made adjacent to the radial artery and cephalic vein in the wrist. The cephalic vein was identified. Several small tributaries were ligated with sutures and divided. The vein was mobilized and controlled with silastic loops. Next, the radial artery was identified and dissected. The artery was of adequate caliber and was without significant atherosclerotic disease. The artery was mobilized proximally and distally for a 2-cm segment and several small tributaries were ligated with ties and divided. The patient was systemically heparinized. The vein was then brought adjacent to the artery and appeared to lie comfortably without tension or kinking. The artery was contr olled proximally and distally with silastic vessel loops and an anterolateral arteriotomy was made using a #11 blade scalpel. The distal vein was ligated and the vein divided. The end of the vein was then opened and spatulated . The arteriovenous anastomosis was then performed using a running 6-0 prolene suture. Following completion of the anastomosis, hemostasis was satisfactory. Excellent flow through the fistula was confirmed and the hand was well perfused. Hemostasis was assured. The wound was irrigated and the subcutaneous tissues were re-approximated using interrupted 3-0 Vicryl sutures. The skin was closed with 4-0 subcuticular monocryl sutures. A dry sterile dressing was applied. The patient tolerated the procedure well and was taken to the post anesthesia care unit in stable condition. Sponge count and needle counts were correct. Postoperative pain management per Anesthesia for evaluation and placement of regional anesthesia toreduce the need for opioid pain medication. Attestation: I was present and scrubbed for the entire procedure documented in this encounter Plan of Treatment Upcoming Encounters Date Type Department Care Team (Latest Contact Info) Description 02/16/2023 1:07 PM EST Hospital Encounter [facility], Operating Room, [facility] - 4th Floor [address] [place] [address] Karlee [facility]uitrago MD [address] [facility] [place] [address] 02/16/2023 1:07 PM EST - 02/16/2023 3:23 PM EST Surgery OR [facility], Operating Room, [facility] - [address] [place] [id number] Karlee Buitrago MD [address] [facility] [place] [address] ESOPHAGOGASTRODUODENOSCOPY (EGD), FLEXIBLE, TRANSORAL: MUCOSAL RESECTION 03/02/2023 10:30 AM EST Office Visit General Surgery, [facility] [address] [place] [id number] Josefa Li MD [address] [place] [address] 03/08/2023 11:50 AM EST Office Visit Vascular Surgery, [facility] [address] [place] [address] Brian Payton MD [address] [place] [address] 03/16/2023 2:00 PM EST Office Visit Gastroenterolog y, [facility] [address] [place] [address] Muriel Broussard CRNP [address] [place] [address] 04/05/2023 11:30 AM EST Office Visit Vascular Surgery, [facility] [address] [place] [address] Brian Payton MD [address] [place] [address] 06/29/2023 8:00 AM EDT Office Visit Family Practice [facility] [address] [place] [address] Barrett Dacosta MD [address] [place] [address] 01/23/2024 11:00 AM EST Telemedicine [facility] [address] [place] [address] Earle Murphy MD [address] [place], [place] [id number] Scheduled Procedures Name Priority Associated Diagnoses Date/Ti me ESOPHAGOGASTRODUODENOSCOPY ( EGD), FLEXIBLE, TRANSORAL: MUCOSAL RESECTION [...] Procedure Name Priority Date/Time Associated Diagnosis Comments GLUCOSE METER, POINT OF CARE DANIELA 02/09/2023 9:15 AM EST POTASSIUM, WHOLE BLOOD STAT 02/09/2023 9:15 AM EST documented in this encounter Results * GLUCOSE METER, POINT OF CARE (02/09/2023 9:15 AM EST) Glucose Meter 96 70 - 120 mg/dL 02/09/2023 10:19 AM EST [facility] Whole blood specimen / Unknown 02/09/2023 9:15 AM EST 02/09/2023 10:19 AM EST Brian Payton MD LAB POINT OF CARE TEST DOCKED DEVICE UNSOLICITED RESULTS [facility] [address] [place] [address] * POTASSIUM, WHOLE BLOOD (02/09/2023 9:15 AM EST) Potassium, Whole Blood 4.0 3.5 - 5.1 mmol/L 02/09/2023 9:26 AM EST LABORATORY [facility] [place] Blood Venous blood specimen / Unknown Venipuncture / Unknown 02/09/2023 9:15 AM EST 02/09/2023 9:22 AM EST Elmer Bhatt PA-C LAB BLOOD ORDERA BLES Performing Organization Address City/[facility]/ZIP Co de Phone Number LABORATORY [facility] [place] [address] [place] [address] documented in this encounter Visit Diagnoses Diagnosis ESRD on dialysis (HCC)- Primary End stage renal disease ESRD on dialysis (HCC) End stage renal disease Abnormal gastrointestinal PET scan Nonspecific abnormal results of other specified function study documented in this encounter Administered Medications Inactive Administered Medications - up to 3 most recent administrations Medication Order MAR Action Action Date Dose Rate Site 1/2 NSS infusion Intravenous, at 50 mL/hr, CONTINUOUS, Starting on Laura 02/09/23 at 0930, Until Laura 02/09/23 at 1742, Pre-Op New Bag 02/09/2023 9:23 AM EST 50 mL/hr fentaNYL (PF) inj 25 mcg 25 mcg, IV Push, Q5 MIN PRN Pain, Severe, Pain, Moderate, Starting on Laura 02/09/23 at 1239, Until Laura 02/09/23 at 1742, For 2 doses, Administer up to a total of 50 mcg. Administer only postop in PACU When given IV Push its recommended that the dose be given over 3 to 5 minutes., PACU fentaNYL (PF) inj 50 mcg 50 mcg, IV Push, Q5 MIN PRN Other, sedation for block placement, Starting on Laura 02/09/23 at 0850, Until Laura 02/09/23 at 1742, For 2 doses, Maximum 100 mcg. Preop Anesthesia Block When given IV Push its recommended that the dose be given over 3 to 5 minutes., Pre-Op Given 02/09/2023 9:43 AM EST 25 mcg midazolam (Versed) 2 MG/2ML inj 1 mg 1 mg, IV Push, Q2 MIN PRN sedation for block placement , Starting on Laura 02/09/23 at 0850, Until Laura 02/09/23 at 1742, For 2 doses, Preop Anesthesia Block, Pre-Op Given 02/09/2023 9:55 AM EST 0.5 mg oxygen GAS Inhalation, OXYGEN, First dose on Laura 02/09/23 at 0930, Until Discontinued, Device/Managed by: Low Flow Device, Goal SPO2 (%): 91-95, Starting Device: Nasal Cannula, Initial Flow Rate (LPM): 2, Lowest Support: Nasal Cannula: Flow 0-6 LPM. Titrate up/down by 1 LPM., Titration Interval: Q2 minutes and as needed., Notify Provider: For sudden DECREASE in resting SPO2 to less than 85% and when escalating delivery device., Wean patient off Oxygen when the oxygen saturation is greater than or equal to 93% Oxygen On 02/09/2023 9:40 AM EST 3 L/min(Oxygen) oxygen GAS Inhalation, OXYGEN, First dose on Laura 02/09/23 at 1600, Until Discontinued, Device/Managed by: Low Flow Device, Goal SPO2 (%): Other, Lower-limit SPO2 (%): 88, Upper-limit SPO2 (%): 92, Starting Device: Nasal Cannula, Initial Flow Rate (LPM): 6 LPM for NC; 10 LPM for NRB mask, Lowest Support: Nasal Cannula: Flow 0-6 LPM. Titrate up/down by 1 LPM., Higher Support: Non-Rebreather (NRB) Mask: Minimum of 10 LPM. Titrate to maintain bag inflation., Titration Interval: Q2 minutes and as needed., Notify Provider: Other, Notify Provider [other]: If SpO2 less than 88%, notify provider immediately, If patient is on Room Air in the PACU and SpO2 is greater than 88% but less than 92% place patient on Nasal Cannula If patient is on Room Air in the PACU and SpO2 is less than 88% place patient on NRB Mask sodium chloride 0.9 % flush peripheral lizzie 3 mL 3 mL, IV Push, QSHIFT, First dose on Laura 02/09/23 at 0930, Until Discontinued, Do not flush if lock, PICC, or central line not in place; IV infusing or unable to flush., Pre-Op documented in this encounter Active and Recently Administered Medications Times are shown in EST. Scheduled Medication Order 02/07/2023 02/08/2023 02/09/2023 ceFAZolin in dextrose (Ancef) ivpb 2 g (COMPLETED) 2 g, IV Piggyback, PREOP, 1 dose, First dose on Laura 02/09/23 at 0930, Administer 60 minutes prior to skin incision, Pre-Op 1100 (Given - Provid er: Bud Moise MD) oxygen GAS Inhalation, OXYGEN, First dose on Laura 02/09/23 at 0930, Until Discontinued, Device/Managed by: Low Flow Device, Goal SPO2 (%): 91-95, Starting Device: Nasal Cannula, Initial Flow Rate (LPM): 2, Lowest Support: Nasal Cannula: Flow 0-6 LPM. Titrate up/down by 1 LPM., Titration Interval: Q2 minutes and as needed., Notify Provider: For sudden DECREASE in resting SPO2 to less than 85% and when escalating delivery device., Wean patient off Oxygen when the oxygen saturation is greater than or equal to 93% 0940 (Oxygen On - Pr ovider: Aurea Tapia RN) oxygen GAS Inhalation, OXYGEN, First dose on Laura 02/09/23 at 1600, Until Discontinued, Device/Managed by: Low Flow Device, Goal SPO2 (%): Other, Lower-limit SPO2 (%): 88, Upper-limit SPO2 (%): 92, Starting Device: Nasal Cannula, Initial Flow Rate (LPM): 6 LPM for NC; 10 LPM for NRB mask, Lowest Support: Nasal Cannula: Flow 0-6 LPM. Titrate up/down by 1 LPM., Higher Support: Non-Rebreather (NRB) Mask: Minimum of 10 LPM. Titrate to maintain bag inflation., Titration Interval: Q2 minutes and as needed., Notify Provider: Other, Notify Provider [other]: If SpO2 less than 88%, notify provider immediately, If patient is on Room Air in the PACU and SpO2 is greater than 88% but less than 92% place patient on Nasal Cannula If patient is on Room Air in the PACU and SpO2 is less than 88% place patient on NRB Mask 1240 (Oxygen Off - P rovider: Adarsh Myles, HERMINIO) sodium chloride 0.9 % flush peripheral lizzie 3 mL 3 mL, IV Push, QSHIFT, First dose on Laura 02/09/23 at 0930, Until Discontinued, Do not flush if lock, PICC, or central line not in place; IV infusing or unable to flush., Pre-Op 0930 (Due) Continuous Medication Order 02/07/2023 02/08/2023 02/09/2023 1/2 NSS infusion Intravenous, at 50 mL/hr, CONTINUOUS, Starting on Laura 02/09/23 at 0930, Until Laura 02/09/23 at 1742, Pre-Op 0923 (New Bag - Prov ider: Gwendolyn Cleary, HERMINIO) PRN Medication Order 02/07/2023 02/08/2023 02/09/2023 bupivacaine HCl 30 mL, lidocaine 1 % 30 mL inj (CANCELED) ONCE PRN INTRA PROCEDURE, Starting on Laura 02/09/23 at 1117, Until Laura 02/09/23 at 1231, Intra-Op 1117 (Given - Provid er: Brian Payton MD - Comment: left arm) ceFAZolin 1,000 mg in sodium chloride IR 0.9 % 500 mL irrigation (CANCELED) ONCE PRN INTRA PROCEDURE, Starting on [place] 02/09/23 at 1126, Until Laura 02/09/23 at 1231, Intra-Op 1126 (Given - Provid er: Brian Payton MD - Comment: PRN) fentaNYL (PF) inj 25 mcg 25 mcg, IV Push, Q5 MIN PRN Pain, Severe, Pain, Moderate, Starting on Laura 12/09/25 at 1239, Until Laura 12/23 at 1742, For 2 doses, Administer up to a total of 50 mcg. Administer only postop in PACU When given IV Push its recommended that the dose be given over 3 to 5 minutes., PACU fentaNYL (PF) inj 50 mcg 50 mcg, IV Push, Q5 MIN PRN Other, sedation for block placement, Starting on Laura 02/09/23 at 0850, Until Laura 12 at 1742, For 2 doses, Maximum 100 mcg. Preop Anesthesia Block When given IV Push its recommended that the dose be given over 3 to 5 minutes., Pre-Op 0943 (Given - Provid er: Aurea Tapia RN) hEParin 5,000 Units in NSS 500 mL infusion (CANCELED) ONCE PRN INTRA PROCEDURE, Starting on Laura 12 at 1127, Until Laura 12 at 1231, Intra-Op 1127 (Given - Provid er: Brian Payton MD - Comment: PRN) midazolam (Versed) 2 MG/2ML inj 1 mg 1 mg, IV Push, Q2 MIN PRN sedation for block placement , Starting on Laura 12/09/25 at 0850, Until Laura 02/09/23 at 1742, For 2 doses, Preop Anesthesia Block, Pre-Op 0955 (Given - Provid er: Aurea Tapia RN) documented in this encounter Advance Directives Latest [...] patient or by statute hierarchy) Care Teams Ophthalmic Dispenser Relationship Specialty Start Date End Date Barrett Dacosta MD [address] [place] [address] PCP - General Family Medicine 04/11/18 documented as of this encounter
--- OUTSIDE RECORDS SUMMARY | 2023-03-27 18:34 | External Medical Summary ---
Author Name Unknown Address Unknown Organization : Laboratory Report Ordering Provider Test Date Status BRITTANI RIVAS 02/16/2023 12:33:36 Final Observation Date Value Abnormality Reference (Units ) Status Glucose Point of Care 02/16/2023 12:33:36 85 70-120 (mg/dL) Final Performing Location
--- OUTSIDE RECORDS SUMMARY | 2023-03-27 18:35 | External Medical Summary | Summary of Care ---
Author Name Unknown Organization [facility] Address [address] [facility] [place] [address] Phone [phone] Care Team Providers Care Yard Attendant Name Role Phone Barrett Weathers MD Primary Care Provider + Reason for Visit * Reason Comments eRx-Medication Refill Encounter Details Date Type Department Care Team (Late st Contact Info) Description 01/27/2023 Refill Family Practice [facility] [address] [place] [address] Barrett Weathers MD [address] [place] [address] Gout Allergies No known active allergiesdocumented as of this encounter (statuses as of 01/28/2023) Medications Medication Sig Dispensed Refills Start Date [...] in the morning. 90 Capsule 0 01/13/2023 4 Active traMADol HCl 50 MG Oral Tablet [...] 1 Capsule before bedtime. 0 01/23/2023 Active Amoxicillin-Pot Clavulanate 500-125 MG Oral Tablet (Augmentin)Indicat ions:Acute non-recurrent sinusitis, unspecified location Take 1 Tablet by mouth in the morning and 1 Tablet before bedtime. Do all this for 10 days. 20 Tablet 0 01/23/2023 3 Active Allopurinol 100 MG Oral Tablet (Zyloprim)Indicati ons:Gout TAKE 2 TABLETS BY MOUTH EVERY MORNING 180 Tablet 3 01/28/2023 Active Allopurinol 100 MG Oral Tablet (Zyloprim)Indicati ons:Gout TAKE TWO TABLETS BY MOUTH IN THE MORNING 180 Tablet 1 07/18/2022 3 Discontinued documented as of this encounter (statuses as of 01/28/2023) Active Problems Problem Noted Date Diagnosed Date [...] artery 06/03/2022 Overview: 05/26 [facility] Type 2 diabetes mellitus wit h [...] high grade dysplasia (? Cancer--[place] [facility] [place]esophagitis, martha 4 wk. CVA 05/26 [facility]. Left sided weakness. 05/26 TTE [facility] normal EF Grade 2 Farmer Dys. Moderate AV sclerosis and calcified mitral valve--stenosis + mod MR.mild MS. No shunt. 04/24 colon-polyp tubular adenoma. Declined f/u. 2012 adenoma. 08/18 TTE-possilbe vegetation. Mild LVH History of prostate cancer 01/09/2013 Overview: S/p resection Dr [facility] HTN, goal below 140/90 06/04/2012 Gout 06/04/2012 Overview: 07/18 indomethicin non-form documented as of this encounter (statuses as of 01/28/2023) Resolved Problems Problem Noted Date Diagnosed Date [...] as of this encounter (statuses as of 01/28/2023) Immunizations Name Administration Dates Next Due COVID-19 mRNA, LNP-s, No Pre serve, 2-Dose Series ([employer] 02/20/2021,06/17/2020,05/26/2020 Covid-19, Mrna, Lnp-s, Pf, B ivalent, 30 Mcg, IM, 12 yrs and above ([employer] 12/24/2021 Hepatitis B Vaccine, Recombi nant, Adjuvanted, [...] encounter Miscellaneous Notes * Telephone Encounter - Barrett Martines [facility] - 01/28/2023 11:44 AM EST Signed Prescriptions: Disp Refills Allopurinol 100 MG Oral Tablet (Zyloprim) 180 Ta*3 Sig: TAKE 2 TABLETS BY MOUTH EVERY MORNINGAuthorizing Provider: BARRETT WEATHERS User: BARRETT MARTINES documented in this encounter Plan of Treatment Upcoming Encounters Date Type Department Care Team (Latest Contact Info) Description 01/31/2023 8:45 AM EST [facility] [address] [place] [id number] 02/09/2023 10:06 AM EST Hospital Encounter [place] [facility], OPERATING ROOM [facility] [address] [place] [address] Brian Payton MD [address] [place], [place] [id number] 02/09/2023 10:06 AM EST - 02/09/2023 12:25 PM EST Surgery [facility] [address] [place], [place] [id number] Brian Payton MD [address] [place] [address] ARTERIOVENOUS ANASTOMOSIS OPEN DIRECT ANY SITE 03/02/2023 10:30 AM EST Office Visit General Surgery, [facility] [address] [place] [address] Josefa Li MD [address] [place] [address] 03/08/2023 11:50 AM EST Office Visit Vascular Surgery, [facility] [address] [place] [address] Brian Payton MD [address] [place] [address] 03/16/2023 2:00 PM EST Office Visit Gastroenterology, [facility] [address] [place] [address] Muriel Broussard CRNP 132 [facility] [place] [address] 04/05/2023 11:30 AM EST Office Visit Vascular Surgery, [facility] [address] [place] [address] Brian Payton MD [address] [place] [address] 06/29/2023 8:00 AM EDT Office Visit Family Practice [facility] [address] [place] [address] Barrett Weathers MD [address] [place] [address] 01/23/2024 11:00 AM EST [facility] [address] [place] [address] Earle Murphy MD [address] [place] [address] Scheduled Procedures Name Priority Associated Diagnoses Date/Ti [...] 02/14/2020, Additional history exists B-12 03/08/2023 03/08/2022, 10/03/2021, 11/29/2021, Additional history exists HbA1c 07/13/2023 01/12/2023, [...] on dialysis (HCC) End stage renal disease Gout Gout, unspecified ESRD on dialysis (HCC) End stage renal disease documented in this encounter Advance Directives Latest [...] patient or by statute hierarchy) Care Teams Yard Attendant Relationship Specialty Start Date End Date Barrett Weathers MD [address] [place] [address] PCP - General Family Medicine 04/11/18 documented as of this encounter
--- OUTSIDE RECORDS SUMMARY | 2023-03-27 18:35 | External Medical Summary | Summary of Care ---
Author Name Unknown Organization [facility] Address [address] [place] [address] Phone [phone] Care Team Providers Care Handbag Parts Cutter Name Role Phone Barrett Dacosta MD Primary Care Provider + Reason for Referral * Precert (Within 10 days (routine)) - Pending Review Specialty Diagnoses / Procedures Referred By Contbrian t Referred To Contact Radiology Diagnoses Esophageal mass Procedures PET CT SKULL BASE TO MID-THIGH Karlee Buitrago MD [address] [place] [address] Referral ID Status Reason Start Date Expiration Date V isits Requested Visits Authorized [id number] Pending Review 01/23/2023 999 [id number] Reason for Visit * Reason Onset Date Comments Referral 01/17/2023 Encounter Details Date Type Department Care Team (Late st Contact Info) Description 01/17/2023 Telephone General Surgery, [place] [address], [place] [id number] Leon Olivas MD [address], [place] [id number] Referral Allergies No known active allergiesdocumented as of this encounter (statuses as of 01/23/2023) Medications Medication Sig Dispensed Refills Start Date [...] the morning. 90 Tablet 3 06/03/2022 Active Allopurinol 100 MG Oral Tablet (Zyloprim)Indicati ons:Gout TAKE TWO TABLETS BY MOUTH IN THE MORNING 180 Tablet 1 07/18/2022 Active Metoprolol Succinate ER 25 MG Oral [...] needed for Pain, Severe. 240 Tablet 0 12/13/2022 01/23/2023 Discontinued (Refill) documented as of this encounter (statuses as of 01/23/2023) Active Problems Problem Noted Date Diagnosed Date [...] 06/03/2022 Overview: 05/26 [facility]A [facility] Type 2 diabetes mellitus wit h [...] + high grade dysplasia (? Cancer--sent to [facility] for review)/esophagitis, martha 4 wk. CVA 05/26 [facility]. Left sided weakness. 05/26 TTE [facility] normal EF Grade 2 Farmer Dys. Moderate AV sclerosis and calcified mitral valve--stenosis + mod MR.mild MS. No shunt. 04/24 colon-polyp tubular adenoma. Declined f/u. 2012 adenoma. 08/18 TTE-possilbe vegetation. Mild LVH History of prostate cancer 01/09/2013 Overview: S/p [place] Dr [facility] [place], goal below 140/90 06/04/2012 Gout 06/04/2012 Overview: 07/18 indomethicin non-form documented as of this encounter (statuses as of 01/23/2023) Resolved Problems Problem Noted Date Diagnosed Date [...] as of this encounter (statuses as of 01/23/2023) Immunizations Name Administration Dates Next Due COVID-19 mRNA, LNP-s, No Pre serve, 2-Dose Series ([employer]) 02/20/2021,06/17/2020,05/26/2020 Covid-19, Mrna, Lnp-s, Pf, B ivalent, 30 Mcg, IM, 12 yrs and above ([employer]) 12/24/2021 Hepatitis B Vaccine, Recombi nant, Adjuvanted, [...] Miscellaneous Notes * Telephone Encounter - Barrett Dacosta MD - 01/23/2023 1:29 PM EST Called pt. Reviewed with patient. He agrees on plan for PET & will go from there w/tumor board recs. Also c/o sinus pain / TOMAS x2 weeks, not improving. Augmentin rx sent Cc: Josette Raines * Telephone Encounter - Karlee Buitrago MD - 01/23/2023 11:24 AM EST I spoke to the patient and discussed path results with him in details. He has HGD and possible early carcinoma based on the pathology review from [facility]. Anyhow this is not resectable by endoscopy due to extensive submucosal invasion and needs surgery. I ordered a PET scan and we can present [place] [facility] after the PET and he agreed. Schedulers- please schedule his PET. * Telephone Encounter - Melvi Otero RN - 01/18/2023 2:28 PM EST Images from the original note were not included. From Dr Buitrago - pathology on 12/08/22 was sent to [facility] for expert opinion Consult report Diagnosis 1. Esophagus, distal biopsy([id number]; 12/08/2022): -At least high-grade glandular dysplasia (see comment). Comment: Received outside slides show cytological and architectural atypia of at least high-grade dysplasia;some observers may call it intramucosal carcinoma given the jzux-ic-exux and cribriform architectures of tumor glands. Also, the findings may not be commercial representative for the entire lesion given the relatively superficial and limited biopsy material. Received immunostains of p53 and Ki-67 performed at the outside institution support the dysplastic/neoplastic nature of the lesion. Note from PCP today in separate telephone encounter notes: Reviewed w/Dr Buitrago, path reports. No cancer seen in biopsy of mass at GE junction. but +Valentin's with high grade dysplasia. FNA lymph node was negative for malignancy. He would like him to f/u with Thoracic surgery & he will call him. I will also reach out to pt. Doesn't have to see oncology at this time. 07 * Telephone Encounter - Melvi Otero RN - 01/17/2023 1:41 PM EST Images from the original note were not included. 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 Message to Dr Olivas to review and advise on any additional testing given path was negative foradenocarcinoma. 12/08/22 EGD for dysphagia Impression: - LA Grade D erosive esophagitis with no bleeding. Biopsied. - Normal stomach. - Normal examined duodenum. Pathology 12/29/22 CT CAP IMPRESSION No metastatic disease 3 millimeter calcification in the ampulla with pancreatic duct dilated to 6 millimeters. Recommend clinical correlation. 01/13/23 EUS for staging Impression: - Endoscopically, Partially obstructing, likely malignant esophageal tumor was found at the gastroesophageal junction. Biopsied. - Endosonographically, 3 cm mass was found in the gastroesophageal junction. This was staged T2 N0 Mx by endosonographic criteria. The staging applies if malignancy is confirmed. - One benign appearing enlarged lymph node was visualized in the middle paraesophageal mediastinum (level 8M). Fine needle aspiration performed. - The celiac trunk was endosonographically normal. Pathology documented in this encounter Plan of Treatment Upcoming Encounters Date Type Department Care Team (Latest Contact Info) Description 01/31/2023 8:45 AM EST Imaging Radiology [facility] [facility] [address] [facility] [address] 02/09/2023 10:06 AM EST Hospital En[place] [facility] [facility] [address] [place] [address] Brian Payton MD [address] [place] [address] 02/09/2023 10:06 AM EST - 02/09/2023 12:25 PM EST Surgery [place] [facility] [facility] [address], [place] [id number] Brian Payton MD [address] [place] [address] ARTERIOVENOUS ANASTOMOSIS OPEN DIRECT ANY SITE 03/02/2023 10:30 AM EST Office Visit General Surgery, [facility] [address] [facility] [place] [address] Josefa Li MD [address] [place] [address] 03/08/2023 11:50 AM EST Office Visit Vascular Surgery, [facility] [address] [facility] [place] [address] Biran Payton MD [address], [place] [id number] 03/16/2023 2:00 PM EST Office Visit Gastroenterology, [facility] [address] [facility] [place] [address] Muriel Broussard CRNP [address] [place] [address] 04/05/2023 11:30 AM EST Office Visit Vascular Surgery, [facility] [address] [place] [address] Brian Payton MD [address], [place] [id number] 06/29/2023 8:00 AM EDT Office Visit Family Practice [facility] [address] [place] [address] Barrett Dacosta MD [address] [place] [address] 01/23/2024 11:00 AM EST Telemedicine Neurosurgery, [place] [address] [place] [address] Earle Murphy MD [address] [place] [address] Scheduled Orders Name Type Priority Associated Diagnoses Orde r Schedule PET CT SKULL BASE TO MID-THIGH Medical Imaging Routine Esophageal mass Expected: 01/23/2023, Expires: 02/23/2024 Scheduled Procedures Name Priority Associated Diagnoses Date/Ti [...] on dialysis (HCC) End stage renal disease Esophageal mass- Primary Unspecified disorder of esophagus ESRD on dialysis (HCC) End stage renal [...] patient or by statute hierarchy) Care Teams Handbag Parts Cutter Relationship Specialty Start Date End Date Barrett Dacosta MD [address] [place] [address] PCP - General Family Medicine 04/11/18 documented as of this encounter
--- OUTSIDE RECORDS SUMMARY | 2023-03-27 18:35 | External Medical Summary | Summary of Care ---
Author Name Unknown Organization [facility] Address [address] [place] [address] Phone [phone] Care Team Providers Care Lining Caser Name Role Phone Barrett Dacosta MD Primary Care Provider + Reason for Referral * Evaluate & Treat - Unlimited Visits (Within 10 days (routine)) - Authorized Specialty Diagnoses / Procedures Referred By Adali newell Referred To Contact Hematology/Oncology / Hematology Oncology Diagnoses Esophageal mass Karlee Buitrago MD [address] [place] [address] Referral ID Status Reason Start Date Expiration Date Visits Requested Visits Authorized [id number] Authorized Specialty Services Required 3 [phone] Question Answer Referral Priority Within 10 days (routine) [facility] this appointment be scheduled? [facility] Reason for Referral Malignant Oncology (Solid Organ Cancer) Comments Esophageal cancer * Evaluate & Treat - Unlimited Visits (Within 10 days (routine)) - Authorized Specialty Diagnoses / Procedures Referred By Adali newell Referred To Contact SURGICAL ONCOLOGY / Surgical Oncology Diagnoses Esophageal mass Karlee Buitrago MD [address] [place] [address] Leon Olivas MD [address] [place] [address] Referral ID Status Reason Start Date Expiration Date Visits Requested Visits Authorized [id number] Authorized Specialty Services Required 3 [phone] Question Answer Referral Priority Within 10 days (routine) Where should this appointment be scheduled? 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 Reason for Visit * Reason Onset Date Comments NEW PATIENT 01/13/2023 JAN SEEN SOONER Encounter Details Date Type Department Care Team (Late st Contact Info) Description 01/13/2023 Telephone Gastroenterology, [facility] [address] [place] [address] Karlee Buitrago MD [address] [place] [address] NEW PATIENT (JAN SEEN SOONER) Allergies No known active allergiesdocumented as of this encounter (statuses as of 01/30/2023) Medications Medication Sig Dispensed Refills Start Date [...] Oral Tablet Extended Release 24 Hour (toPROL XL)Indications:Es sential hypertension with goal blood pressure less than 140/90 12.5 mg ( half) tablet daily 45 Tablet 3 08/08/2022 Active Torsemide 100 MG Oral Tablet (Demadex) Take 1 Tablet by mouth in the morning. 0 Active Sennosides 8.8 MG/5ML Oral Syrup (Senokot) Take 5 mL by mouth daily as needed for Constipation . 236 mL 5 12/19/2022 Active Omeprazole 40 MG Oral Capsule Delayed Release ([employer]) Take 1 Capsule by mouth in the morning. 90 Capsule 0 01/13/2023 4 Active Allopurinol 100 MG Oral Tablet (Zyloprim)Indicat ions:Gout TAKE TWO TABLETS BY MOUTH IN THE MORNING 180 Tablet 1 07/18/2022 3 Discontinued traMADol HCl 50 MG Oral Tablet (Ultram)Indicatio ns:MEDICATION USE AGREEMENT,Status post lumbar spinal fusion,Chronic bilateral low back pain, unspecified whether sciatica present Take 2 Tablets by mouth every 6 hours as needed for Pain, Severe. 240 Tablet 0 12/13/2022 3 Discontinued(Ref ill) documented as of this encounter (statuses as of 01/30/2023) Active Problems Problem Noted Date Diagnosed Date [...] of left vertebral artery 06/03/2022 Overview: 05/26 [facility] Type 2 diabetes mellitus wit h chronic [...] + high grade dysplasia (? Cancer--sent to [facility] for review)/esophagitis, martha 4 wk. CVA 05/26 [facility]. Left sided weakness. 05/[address] [facility] normal EF Grade 2 Farmer Dys. Moderate AV sclerosis and calcified mitral valve--stenosis + mod MR.mild MS. No shunt. 04/24 colon-polyp tubular adenoma. Declined f/u. 2012 adenoma. 08/18 TTE-possilbe vegetation. Mild LVH History of prostate cancer 01/09/2013 Overview: S/p resection Dr [facility]head [facility] HTN, goal below 140/90 06/04/2012 Gout 06/04/2012 Overview: 07/18 indomethicin non-form documented as of this encounter (statuses as of 01/30/2023) Resolved Problems Problem Noted Date Diagnosed Date [...] as of this encounter (statuses as of 01/30/2023) Immunizations Name Administration Dates Next Due COVID-19 mRNA, LNP-s, No Pre serve, 2-Dose Series ([employer]) 02/20/2021,06/17/2020,05/26/2020 Covid-19, Mrna, Lnp-s, Pf, B [...] Miscellaneous Notes * Telephone Encounter - Rosalba Sorto CMA - 01/30/2023 8:[address] Roland, NoInvasive Cancer diagnosis Patient does not need oncology services at this time * Telephone Encounter - Rosalba Sorto CMA - 01/17/2023 3:01 PM EST Pathology received but need to have providers review and advise if patient needs appt with Oncologyor additional work up * Telephone Encounter - Rosalba Sorto CMA - 01/17/2023 10:[address] [facility] Medical Records; spoke with Lin; requested the pathology from the esophageal biopsyto be faxed to our office. Awaiting fax * Telephone Encounter - Rosalba Sorto CMA - 01/13/2023 1:32 PM EST Soon as pathology is resulted will contact patient for new oncology consult * Telephone Encounter - Audrey Lieberman RN - 01/13/2023 11:24 AM EST Patient had endoscopy at [facility] 01/13/23, pathology pending. * Telephone Encounter - Karlee Buitrago MD - 01/13/2023 9:17 AM EST Please arrange referral to Surgical Oncology and Medical Oncology for esophageal cancer. documented in this encounter Plan of Treatment Upcoming Encounters Date Type Department Care Team (Latest Contact Info) Description 01/31/2023 8:45 AM EST [facility] [address] [place] [address] 02/09/2023 10:06 AM EST Hospital Encounter OR [facility], OPERATING ROOM [facility] [address] [place] [address] Brian Payton MD [address] [place] [address] 02/09/2023 10:06 AM EST - 02/09/2023 12:25 PM EST Surgery OR [facility], OPERATING ROOM [facility] [address] [place] [address] Brian Payton MD [address] [place] [address] ARTERIOVENOUS ANASTOMOSIS OPEN DIRECT ANY SITE 03/02/2023 10:30 AM EST Office Visit General Surgery, [facility] [address] [place] [address] Josefa Li MD [address] [place], [place] [id number] 03/08/2023 11:50 AM EST Office Visit Vascular Surgery, [facility] [address] [place] [address] Brian Payton MD [address] [place], [place] [id number] 03/16/2023 2:00 PM EST Office Visit Gastroenterology, [facility] [address] [place] [address] Muriel Broussard CRNP [address] [place] [address] 04/05/2023 11:30 AM EST Office Visit Vascular Surgery, [facility] [address] [place] [address] Brian Payton MD [address] [place], [place] [id number] 06/29/2023 8:00 AM EDT Office Visit Family Practice [facility] [address] [place] [address] Barrett Dacosta MD [address] [place] [address] 01/23/2024 11:00 AM EST Telemedicine Neurosurgery, [place] [address] [place], [place] [id number] Earle Murphy MD [address] [place] [address] Scheduled Procedures Name Priority Associated Diagnoses Date/Ti me ARTERIOVENOUS ANASTOMOSIS OPEN DIRECT ANY SITE ESRD on dialysis (HCC) 02/09/2023 10:06 AM EST COLONOSCOPY FLEXIBLE PROXIMAL DIAGNOSTIC Recall History of colonic polyps Scheduled Referrals Name Type Priority Associated Diagnoses Orde r Schedule SURGICAL ONCOLOGY REFERRAL OP Referral Within 10 days (routine) Esophageal mass Ordered: 01/13/2023 HEMATOLOGY/ONCOLOGY REFERRAL OP Referral Within 10 days [...] patient or by statute hierarchy) Care Teams Lining Caser Relationship Specialty Start Date End Date Barrett Dacosta MD [address] [place] [address] PCP - General Family Medicine 04/11/18 documented as of this encounter
--- OUTSIDE RECORDS SUMMARY | 2023-03-27 18:35 | External Medical Summary | Summary of Care ---
Author Name Unknown Organization [facility] Address [address] [facility] [address] Phone [phone] Care Team Providers Care Cookie Padder Name Role Phone Barrett Dacosta MD Primary Care Provider + Encounter Details Date Type Department Care Team (Late st Contact Info) Description 01/27/2023 Documentation Hematology/Oncology [facility] [place] [address] [facility] [place] [address] Werner Roland MD [address] [place] [address] Allergies No known active allergiesdocumented as of this encounter (statuses as of 01/27/2023) Medications Medication Sig Dispensed Refills Start Date [...] 06/03/2022 Active Allopurinol 100 MG Oral Tablet (Zyloprim)Indication s:Gout TAKE TWO TABLETS BY MOUTH IN THE [...] Active Amoxicillin-Pot Clavulanate 500-125 MG Oral Tablet (Augmentin)Indicatio ns:Acute non-recurrent sinusitis, unspecified location Take 1 Tablet by mouth in the morning and 1 Tablet before bedtime. Do all this for 10 days. 20 Tablet 0 01/23/2023 02/02/2023 Active documented as of this encounter (statuses as of 01/27/2023) Active Problems Problem Noted Date Diagnosed Date [...] left vertebral artery 06/03/2022 Overview: 05/26 CTA [facility] Type 2 diabetes mellitus wit [...] + high grade dysplasia (? Cancer--sent to [facility] for review)/esophagitis, martha 4 wk. CVA 05/26 [facility]. Left sided weakness. 05/26 TTE [facility] normal EF Grade 2 Farmer Dys. Moderate AV sclerosis and calcified mitral valve--stenosis + mod MR.mild MS. No shunt. 04/24 colon-polyp tubular adenoma. Declined f/u. 2012 adenoma. 08/18 TTE-possilbe vegetation. Mild LVH History of prostate cancer 01/09/2013 Overview: S/p resection Dr Whitehead [facility] [place]N, goal below 140/90 06/04/2012 Gout 06/04/2012 Overview: 07/18 indomethicin non-form documented as of this encounter (statuses as of 01/27/2023) Resolved Problems Problem Noted Date Diagnosed Date [...] as of this encounter (statuses as of 01/27/2023) Immunizations Name Administration Dates Next Due COVID-19 mRNA, LNP-s, No Pre serve, 2-Dose Series ([employer]) 02/20/2021,06/17/2020,05/26/2020 Covid-19, Mrna, Lnp-s, Pf, B ivalent, 30 Mcg, IM, 12 yrs and above ([employer]) 12/24/2021 Hepatitis B Vaccine, Recombi nant, Adjuvanted, [...] as of this encounter Progress Notes * Werner Roland MD - 01/27/2023 12:16 PM EST Upper GI endoscopic for dysphagia evaluation on 12/08/2022: -esophagitis, no bleeding, stomach normal, duodenum normal. Biopsy showed high-grade glandular dysplasia. Upper GI endoscopic ultrasound evaluation on 01/13/2023: -medium-sized fungating and submucosal mass, 3 cm, at GE junction, stage that T2 N0, 1 benign appearing lymph node in the middle paraesophageal mediastinum, FNA performed Biopsy from the GE junction mass, at least Valentin's esophagus with high-grade dysplasia. No definitive invasive carcinoma identified FNA from the mediastinal lymph node --> negative for malignancy We do not have invasive carcinoma in the pathological specimen. We should repeat endoscopic evaluation documented in this encounter Plan of Treatment Upcoming Encounters Date Type Department Care Team (Latest Contact Info) Description 01/31/2023 8:45 AM EST Imaging Radiology, [facility] [address] [place], [place] [id number] 02/09/2023 10:06 AM EST Hospital Encounter [place] [facility] [facility] [address] [place] [address] Brian Payton MD [address] [place] [address] 02/09/2023 10:06 AM EST - 02/09/2023 12:25 PM EST Surgery [place] [facility] [address] [facility] [place] [address] Brian Payton MD [address] [place] [address] ARTERIOVENOUS ANASTOMOSIS OPEN DIRECT ANY SITE 03/02/2023 10:30 AM EST Office Visit General Surgery, [facility] [address] [place] [address] Josefa Li MD [address], [place] [id number] 03/08/2023 11:50 AM EST Office Visit Vascular Surgery, [facility] [address] [place] [address] Brian Payton MD [address] [place], [place] [id number] 03/16/2023 2:00 PM EST Office Visit Gastroenterology, [facility] [address] [place] [address] Muriel Broussard CRNP [address] [place] [address] 04/05/2023 11:30 AM EST Office Visit Vascular Surgery, [facility] [address] [place] [address] Brian Payton MD [address] [place], [place] [id number] 06/29/2023 8:00 AM EDT Office Visit Family Practice [facility] [address] [place] [address] Barrett Dacosta MD [address] [place] [address] 01/23/2024 11:00 AM EST Telemedicine Neurosurgery, [place] [address], [place] [phone] Earle Murphy MD [address], [place] [phone] Scheduled Procedures Name Priority Associated Diagnoses Date/Ti [...] Name Relationship Healthcare Agent Relationshi p Communication Jacklynvandana Cason Spouse Health Care Repr esentative (appointed verbally by patient or by statute hierarchy) Care Teams Cookie Padder Relationship Specialty Start Date End Date Barrett Dacosta MD [address] [place] [address] PCP - General Family Medicine 04/11/18 documented as of this encounter
--- OUTSIDE RECORDS SUMMARY | 2023-03-27 18:35 | External Medical Summary | Summary of Care ---
Author Name Unknown Organization [facility] Address [address] [facility] [place] [address] Phone [phone] Care Team Providers Care I&C Tech Name Role Phone Barrett Dacosta MD Primary Care Provider + Encounter Details Date Type Department Care Team (Late st Contact Info) Description 02/06/2023 Telephone Gastroenterology, [facility] [address] [place] [address] Karlee Buitrago MD [address] [place] [address] Allergies No known active allergiesdocumented as of [...] left vertebral artery 06/03/2022 Overview: 05/[address] [facility] Type 2 diabetes mellitus wit h [...] + high grade dysplasia (? Cancer--sent [facility] for review)/esophagitis, martha 4 [...] cancer 01/09/2013 Overview: S/p resection Dr Whitehead [facility] HTN, goal below 140/90 06/04/2012 Gout 06/04/2012 [...] mRNA, LNP-s, No Pre serve, 2-Dose Series ([employer]) 02/20/2021,06/17/2020,05/26/2020 Covid-19, Mrna, Lnp-s, Pf, B ivalent, 30 Mcg, IM, 12 yrs and above ([employer]) 12/24/2021 Hepatitis B Vaccine, Recombi nant, Adjuvanted, [...] Randall OSA - 02/06/2023 12:48 PM EST Cindi, please advise if I can ask for additional OR room * Telephone Encounter - Karlee Buitrago MD [...] would like to this on 02/16 at [facility] OR. Can you please see if we can add him. It will be a 2 hrs case. documented in this encounter Plan of Treatment Upcoming Encounters Date Type Department Care Team (Latest Contact Info) Description 02/09/2023 10:06 AM EST Hospital Encounter [place] [facility] [facility]PER[facility] ROOM [facility] [address] [place] [address] Brian Payton MD [address] [place], [place] [id number] 02/09/2023 10:06 AM EST - 02/09/2023 12:25 PM EST Surgery OR [facility] OPERATING ROOM [facility] [address] [place] [address] Brian Payton MD [address] [place], [place] [phone] ARTERIOVENOUS ANASTOMOSIS OPEN DIRECT ANY SITE 03/02/2023 10:30 AM EST Office Visit General Surgery, [facility] [address] [place] [address] Josefa Li MD [address] [place], [place] [phone] 03/08/2023 11:50 AM EST Office Visit Vascular Surgery, [facility] [address] [place] [address] Brian Payton MD [address] [place] [address] 03/16/2023 2:00 PM EST Office Visit Gastroenterology, [facility] [address] [place] [address] Muriel Broussard CRNP [address] [place] [address] 04/05/2023 11:30 AM EST Office Visit Vascular Surgery, [facility] [address] [place] [address] Brian Payton MD [address] [place] [address] 06/29/2023 8:00 AM EDT Office Visit Family Practice [facility] [address] [place] [address] Barrett Dacosta MD 132 [place] [address] 01/23/2024 11:00 AM EST Telemedicine Neurosurgery, [place] [address] [place], [place] [phone] Earle Murphy MD [address] [place], [place] [address] Scheduled Procedures Name Priority Associated Diagnoses Date/Ti [...] patient or by statute hierarchy) Care Teams I&C Tech Relationship Specialty Start Date End Date Barrett Dacosta MD [address] [place] [address] PCP - General Family Medicine 04/11/18 documented as of this encounter
--- OUTSIDE RECORDS SUMMARY | 2023-03-27 18:35 | External Medical Summary | Summary of Care ---
Author Name Unknown Organization [facility] Address [address] [facility] [place] [address] Phone [phone] Care Team Providers Care Operations Lieutenant Name Role Phone Barrett Dacosta MD Primary Care Provider + Encounter Details Date Type Department Care Team (Late st Contact Info) Description 02/06/2023 Telephone Gastroenterology, [facility] [address] [place] [address] Karlee Buitrago MD [address] [place] [address] Allergies No known active allergiesdocumented as of [...] left vertebral artery 06/03/2022 Overview: 05/26 CTA [facility] Type 2 diabetes mellitus wit h chronic [...] + high grade dysplasia (? Cancer--sent to [facility] for review)/esophagitis, martha 4 wk. CVA 05/26 [facility]. Left sided weakness. 05/26 TTE [facility] normal EF Grade 2 Farmer Dys. Moderate AV sclerosis and calcified mitral valve--stenosis + mod MR.mild MS. No shunt. 04/24 colon-polyp tubular adenoma. Declined f/u. 2012 adenoma. 08/18 TTE-possilbe vegetation. Mild LVH History of prostate cancer 01/09/2013 Overview: S/p resection Dr Whitehead [facility] HTN, goal below 140/90 06/04/2012 Gout 06/04/2012 [...] mRNA, LNP-s, No Pre serve, 2-Dose Series ([employer]) 02/20/2021,06/17/2020,05/26/2020 Covid-19, Mrna, Lnp-s, Pf, B ivalent, 30 Mcg, IM, 12 yrs and above ([employer]) 12/24/2021 Hepatitis B Vaccine, Recombi nant, Adjuvanted, [...] would like to this on 02/16 at [facility] OR. Can you please see if we can add him. It will be a 2 hrs case. documented in this encounter Plan of Treatment Upcoming Encounters Date Type Department Care Team (Latest Contact Info) Description 02/09/2023 10:06 AM EST Hospital Encounter [place] [facility] [facility] [facility] [address] [place], [place] [phone] Brian Payton MD [address] [place], [place] [address] 02/09/2023 10:06 AM EST - 02/09/2023 12:25 PM EST Surgery OR [facility] [facility] RO[facility] [address] [place], [place] [phone] Brian Payton MD [address] [place], [place] [phone] ARTERIOVENOUS ANASTOMOSIS OPEN DIRECT ANY SITE 03/02/2023 10:30 AM EST Office Visit General Surgery, [facility] [address] [place] [address] Josefa Li MD [address] [place] [address] 03/08/2023 11:50 AM EST Office Visit Vascular Surgery, [facility] [address] [place] [address] Brian Payton MD [address] [place] [address] 03/16/2023 2:00 PM EST Office Visit Gastroenterology, [facility] [address] [place] [address] Muriel Broussard CRNP [address] [place] [address] 04/05/2023 11:30 AM EST Office Visit Vascular Surgery, [facility] [address] [place] [address] Brian Payton MD [address] [place] [address] 06/29/2023 8:00 AM EDT Office Visit Family Practice [facility] [address] [place] [address] Barrett Dacosta MD [address] [place] [address] 01/23/2024 11:00 AM EST Telemedicine Neurosurgery, [place] [address] [place], [place] [phone] Earle Murphy MD [address], [place] [phone] Scheduled Procedures Name Priority Associated Diagnoses Date/Ti [...] patient or by statute hierarchy) Care Teams Operations Lieutenant Relationship Specialty Start Date End Date Barrett Dacosta MD [address] [place] [address] PCP - General Family Medicine 04/11/18 documented as of this encounter
--- OUTSIDE RECORDS SUMMARY | 2023-03-27 18:36 | External Medical Summary | Summary of Care ---
Author Name Unknown Organization [facility] Address [address] [place] [address] Phone [phone] Care Team Providers Care Culinary Arts Teacher Name Role Phone Barrett Dacosta MD Primary Care Provider + Reason for Visit * Reason Onset Date Comments Follow Up 01/16/2023 Encounter Details Date Type Department Care Team (Late st Contact Info) Description 01/16/2023 Telephone Care Coordination [address] [place] [address] [facility] [employer] Set Up Mechanic [address], [place] [phone] Follow Up Allergies No known active allergiesdocumented as of this encounter (statuses as of 01/19/2023) Medications Medication Sig Dispensed Refills Start Date [...] Oral Tablet Extended Release 24 Hour (toPROL XL)Indications:Dken tial hypertension with goal blood pressure less than 140/90 12.5 mg ( half) tablet daily 45 Tablet 3 08/08/2022 Active Torsemide 100 MG Oral Tablet (Demadex) Take 1 Tablet by mouth in the morning. 0 Active traMADol HCl 50 MG Oral Tablet (Ultram)Indications: MEDICATION USE AGREEMENT,Status post lumbar spinal fusion,Chronic bilateral low back pain, unspecified whether sciatica present Take 2 Tablets by mouth every 6 hours as needed for Pain, Severe. 240 Tablet 0 12/13/2022 Active Sennosides 8.8 MG/5ML Oral Syrup (Senokot) Take 5 mL by mouth daily as needed for Constipation. 236 mL 5 12/19/2022 Active Omeprazole 40 MG Oral Capsule Delayed Release (PriLOSEC) Take 1 Capsule by mouth in the morning. 90 Capsule 0 01/13/2023 04/13/2023 Active documented as of this encounter (statuses as of 01/19/2023) Active Problems Problem Noted Date Diagnosed Date [...] of left vertebral artery 06/03/2022 Overview: 05/26 [facility] Type 2 diabetes mellitus wit [...] + high grade dysplasia (? Cancer--sent [place] [facility] for [place])/esophagitis, martha 4 wk. CVA 05/26 [facility]. Left sided weakness. 05/26 TTE [facility] normal EF Grade 2 Farmer Dys. Moderate AV sclerosis and calcified mitral valve--stenosis + mod MR.mild MS. No shunt. 04/24 colon-polyp tubular adenoma. Declined f/u. 2012 adenoma. 08/18 TTE-possilbe vegetation. Mild LVH History of prostate cancer 01/09/2013 Overview: S/p resection Dr Whitehead [facility] HTN, goal below 140/90 06/04/2012 Gout 06/04/2012 Overview: 07/18 indomethicin non-form documented as of this encounter (statuses as of 01/19/2023) Resolved Problems Problem Noted Date Diagnosed Date [...] as of this encounter (statuses as of 01/19/2023) Immunizations Name Administration Dates Next Due COVID-19 mRNA, LNP-s, No Pre serve, 2-Dose Series ([employer]) 02/20/2021,06/17/2020,05/26/2020 Covid-19, Mrna, Lnp-s, Pf, B ivalent, [...] Telephone Encounter - Barrett Dacosta MD - 01/19/2023 2:26 PM EST No answer again, VM not set up. Josette-could you please try reaching out to him later; ok ot let him know biopsy results do not show cancer, but he does have very abnormal cells & we are worried he may still have cancer in his esophagus. Dr Buitrago will reach out to him as well. Cc: Dr Buitrago * Telephone Encounter - Barrett Dacosta MD - 01/18/2023 8:53 AM EST No answer on mobile or home lines, unable to leave a message , VM not set up * Telephone Encounter - Barrett Dacosta MD - 01/17/2023 9:06 PM EST Reviewed w/Dr Buitrago, path reports. No cancer seen in biopsy of mass at GE junction. but +Valentin's with high grade dysplasia. FNA lymph node was negative for malignancy. He would like him to f/u with Thoracic surgery & he will call him. I will also reach out to pt. Doesn't have to see oncology at this time. * Telephone Encounter - [facility] [employer] Set Up Mechanic - 01/16/2023 4:15 PM EST VANESSA f/u call Spoke with pt's , Jacklyn, she stated he is doing well even though he received bad news from the EGD. Pt. Is questioning what is next? Dr. Buitrago stated oncology surgeon would be contacting them orwere they suppose to contact someone. They haven't heard anything, yet. Asked to have Dr. Dacosta contact him to discuss. Electronically signed by [facility] [employer] Set Up Mechanic at 01/16/2023 4:24 PM EST documented in this encounter Plan of Treatment Upcoming Encounters Date Type Department Care Team (Latest Contact Info) Description 02/09/2023 10:06 AM EST Hospital Encounter OR [facility]PER[facility] [address] [place] [address] Brian Payton MD [address] [place] [address] 02/09/2023 10:06 AM EST - 02/09/2023 12:25 PM EST Surgery OR [facility], OPERATING ROOM [facility] [address] [place] [address] Brian Payton MD [address] [place], [place] [phone] ARTERIOVENOUS ANASTOMOSIS OPEN DIRECT ANY SITE 03/02/2023 10:30 AM EST Office Visit General Surgery, [facility] [address] [place] [address] Josefa Li MD [address] [place], [place] [address] 03/08/2023 11:50 AM EST Office Visit Vascular Surgery, [facility] [address] [place] [address] Brian Payton MD [address] [place], [place] [phone] 03/16/2023 2:00 PM EST Office Visit Gastroenterology, [facility] [address] [place] [address] Muriel Broussard CRNP [address] [facility] [place] [address] 04/05/2023 11:30 AM EST Office Visit Vascular Surgery, [facility] [address] [place] [address] Brian Payton MD [address] [place] [address] 06/29/2023 8:00 AM EDT Office Visit Family Practice [facility] [address] [place] [address] Barrett Dacosta MD 132 [facility] [place] [address] 01/23/2024 11:00 AM EST Telemedicine Neurosurgery, [place] [address] [place] [address] Earle Murphy MD [address] [facility] [place] [address] Scheduled Procedures Name Priority Associated Diagnoses Date/Ti [...] or by statute hierarchy) Care Teams Culinary Arts Teacher Relationship Specialty Start Date End Date Barrett Dacosta MD [address] [place] [address] PCP - General Family Medicine 04/11/18 documented as of this encounter
--- OUTSIDE RECORDS SUMMARY | 2023-03-27 18:36 | External Medical Summary | Summary of Care ---
Author Name Unknown Organization [facility] Address [address] [place] [address] Phone [phone] Care Team Providers Care Shirt Operator Name Role Phone Barrett Dacosta MD Primary Care Provider + Reason for Referral * Evaluate & Treat - Unlimited Visits (Within 10 days (routine)) - Authorized Specialty Diagnoses / Procedures Referred By Adali newell Referred To Contact Hematology/Oncology / Hematology Oncology Diagnoses Esophageal mass Karlee Buitrago MD [address] [employer] [place] [address] Referral ID Status Reason Start Date Expiration Date Visits Requested Visits Authorized [id number] Authorized Specialty Services Required 3 999 999 [...] mass Karlee Buitrago MD [address] [place] [address] Leon Olivas MD [address] [place] [address] Referral ID Status Reason Start Date Expiration Date Visits Requested Visits Authorized [id number] Authorized Specialty Services Required 3 999 999 [...] st Contact Info) Description 01/13/2023 Telephone Gastroenterology, [facility] [address] [place] [address] Karlee Buitrago MD [address] [place] [address] NEW PATIENT (JAN SEEN SOONER) Allergies No [...] of left vertebral artery 06/03/2022 Overview: 05/26 [facility] Type 2 diabetes mellitus wit h [...] high grade dysplasia (? Cancer--sent to [facility] for review)/esophagitis, martha 4 wk. CVA 05/26 [facility]. Left sided weakness. 05/26 TTE [facility] normal EF Grade 2 Farmer Dys. Moderate AV sclerosis and calcified mitral valve--stenosis + mod MR.mild MS. No shunt. 04/24 colon-polyp tubular adenoma. Declined f/u. 2012 adenoma. 08/18 TTE-possilbe vegetation. Mild LVH History of prostate cancer 01/09/2013 Overview: S/p resection Dr Whitehead [facility] HTN, goal below 140/90 06/04/2012 Gout 06/04/2012 [...] mRNA, LNP-s, No Pre serve, 2-Dose Series ([employer]) 02/20/2021,06/17/2020,05/26/2020 Covid-19, Mrna, Lnp-s, Pf, B ivalent, 30 Mcg, IM, 12 yrs and above ([employer]) 12/24/2021 Hepatitis B Vaccine, Recombi nant, Adjuvanted, [...] CMA - 01/17/2023 10:42 AM EST Called [facility] Medical Records; spoke with Lin; requested the pathology from the esophageal biopsyto be faxed to our office. Awaiting fax * Telephone Encounter - Rosalba Sorto CMA - 01/13/2023 1:32 PM EST Soon as pathology is resulted will contact patient for new oncology consult * Telephone Encounter - Audrey Lieberman RN - 01/13/2023 11:24 AM EST Patient had endoscopy at [facility] 01/13/23, pathology pending. * Telephone Encounter - Karlee Buitrago MD - 01/13/2023 9:17 AM EST Please arrange referral to Surgical Oncology and Medical Oncology for esophageal cancer. documented in this encounter Plan of Treatment Upcoming Encounters Date Type Department Care Team (Latest Contact Info) Description 02/09/2023 10:06 AM EST Hospital Encounter [place] [facility] [address] [place] [address] Brian Payton MD [address] [facility] [place] [address] 02/09/2023 10:06 AM EST - 02/09/2023 12:25 PM EST Surgery OR [facility] [address] [place] [address] Brian Payton MD [address] [facility] [place] [address] ARTERIOVENOUS ANASTOMOSIS OPEN DIRECT ANY SITE 03/02/2023 10:30 AM EST Office Visit General Surgery, [facility] [address] [facility] [place] [address] Josefa Li MD [address] [place] [facility] [place] [address] 03/08/2023 11:50 AM EST Office Visit Vascular Surgery, [facility] [address] [facility] [place] [address] Brian Payton MD [address] [place] [address] 03/16/2023 2:00 PM EST Office Visit Gastroenterology, [facility] 132 [place] [address] Muriel Broussard CRNP 132 [place] [address] 04/05/2023 11:30 AM EST Office Visit Vascular Surgery, [facility] [address] [place] [address] Brian Payton MD [address] [place] [address] 06/29/2023 8:00 AM EDT Office Visit Family Practice [facility] [address] [place] [address] Barrett Dacosta MD 132 [place] [address] 01/23/2024 11:00 AM EST [facility] [address] [place] [address] Earle Murphy MD [address], [place] [phone] Scheduled Procedures Name Priority Associated Diagnoses Date/Ti [...] 02/14/2020, Additional history exists B-12 03/08/2023 03/08/2022, 1003/2021, 11/29/2021, Additional history exists HbA1c 07/13/2023 01/12/2023, [...] patient or by statute hierarchy) Care Teams Shirt Operator Relationship Specialty Start Date End Date Barrett Dacosta MD [address] [place] [address] PCP - General Family Medicine 04/11/18 documented as of this encounter
--- OUTSIDE RECORDS SUMMARY | 2023-03-27 18:36 | External Medical Summary | Summary of Care ---
Author Name Unknown Organization [facility] Address [address] [place] [address] Phone [phone] Care Team Providers Care Retoucher Name Role Phone Barrett Dacosta MD Primary Care Provider + Reason for Referral * Precert (Within 10 days (routine)) - Pending Review Specialty Diagnoses / Procedures Referred By Contac t Referred To Contact Radiology Diagnoses Cerebral aneurysm, nonruptured Procedures MRA HEAD WO CONTRAST Earle Murphy MD [address] [place] [address] Referral ID Status Reason Start Date Expiration Date V isits Requested Visits Authorized [id number] Pending Review 01/19/2024 [id number] Reason for Visit * Reason Comments Follow Up Encounter Details Date Type Department Care Team (Late st Contact Info) Description 01/18/2023 12:30 PM EST Telemedicine Neurosurgery, [place] [address] [place] [address] Earle Murphy MD [address], [place] [id number] Cerebral aneurysm, nonruptured* Allergies No known active allergiesdocumented as of [...] left vertebral artery 06/03/2022 Overview: 05/26 [facility] Type 2 diabetes mellitus wit [...] + high grade dysplasia (? Cancer--sent to [facility] for review)/esophagitis, martha 4 wk. CVA 05/26 [facility]. Left sided weakness. 05/26 TTE [facility] normal EF Grade 2 Farmer Dys. Moderate AV sclerosis and calcified mitral valve--stenosis + mod MR.mild MS. No shunt. 04/24 colon-polyp tubular adenoma. Declined f/u. 2012 adenoma. 08/18 TTE-possilbe vegetation. Mild LVH History of prostate cancer 01/09/2013 Overview: S/p resection Dr Whitehead [facility] HTN, goal below 140/90 06/04/2012 Gout 06/04/2012 [...] mRNA, LNP-s, No Pre serve, 2-Dose Series (zoojoo.BE) 02/20/2021,06/17/2020,05/26/2020 Covid-19, Mrna, Lnp-s, Pf, B ivalent, 30 Mcg, IM, 12 yrs and above (zoojoo.BE) 12/24/2021 Hepatitis B Vaccine, Recombi nant, Adjuvanted, [...] as of this encounter Progress Notes * Earle Murphy MD - 01/18/2023 12:37 PM EST Telephone Encounter: Due to Covid-19 it was felt this patient would be best served through a telephone call. After connecting to the patient via telephone, I introduced myself to the patient and let them know that there was no one else in the room with me . The patient was identified by name and date of . Patient was then informed that this was a telephone call only visit and that the encounter was being conducted confidentially. My office door was closed. No one else was in the room with me. Patient acknowledged consent and understanding of privacy and security of the telephone visit and gave permission to participate. Visit Disposition: Routine follow-up Total call duration was 23 minutes. Ricky Cason is a very pleasant 77 year old male who returns to our cerebrovascular clinic for follow up and discussion of further management. 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 He was admitted to [facility] in early September due to SBO. Underwent exp lap, sigmoid colostomy creation and removal of PD catheter on09/09/22. Culture of peritoneal fluid grew pseudomonas. Patient discharged on 3 wks of antibiotics (Levaquin), end date of 10/03/22. He returns to clinic today for follow up of an incidentally found vertebral artery fusiform dilation with significant calcification, noted on imaging in July 2022 for work up of his stroke. Repeat MRAnow (01/12/2023) shows stable appearance of the known fusiform dilatation of the left vertebral artery (V4 segment). He denies repeated ischemic events since July 2022. He denies headaches, nausea or vomiting, numbness/tingling/weakness in arm/leg/face. He denies positional headaches, denies dizziness or double/blurry vision. Surgical history Past Surgical History: Procedure Laterality Date COLONOSCOPY, DIAGNOSTIC (RECTUM) 07/20/2012 COLONOSCOPY FLEXIBLE PROXIMAL DIAGNOSTIC performed by Rukhsana Gunter DO at ENDOSCOPY [facility],ADENOMATOUS POLYPS REPEAT COLONOSCOPY IN 5 YEARS COLONOSCOPY, DIAGNOSTIC (RECTUM) 05/03/2018 diverticulosis sigmoid colon/biopsies show adenomatous polyps/recall 3 years/COLONOSCOPY FLEXIBLE PROXIMAL DIAGNOSTIC performed by Rukhsana Gunter DO at ENDOSCOPY [facility] COLONOSCOPY/REMOVE LESION 2009 FRAGMENT KIDNEY STONE BY SHOCK WAVE 2008? ric INJECTION LUMBAR/SACRAL 03/28/2014 INJECTION SPINE LUMBAR OR SACRAL performed by Vicente Mcpherson DO at OR [facility] LAPAROSCOPY, W/ INSERT INTRAPERITONEAL CATH N/A 01/12/2022 LAPAROSCOPIC INSERTION INTRAPERITONEAL CANNULA OR CATHETER performed by Florentin Will MD at OR [facility] LUMBAR / SACRAL EPIDURAL, SINGLE LEVEL 08/08/2016 INJECTION TRANSFORAMINAL EPIDURAL LUMBAR OR SACRAL performed by Vicente Mcpherson DO at OR [facility] LUMBAR / SACRAL EPIDURAL, SINGLE LEVEL 08/25/2016 INJECTION TRANSFORAMINAL EPIDURAL LUMBAR OR SACRAL performed by Vicente Mcpherson, at OR [facility] LUMBAR SPINE FUSION W/BONE GRAFT 06/11/2014 Dr Corrales 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 ex lap for SBO/sigmoid colostomy, removal PD catheter. [place] REVJ TOT HIP ARTHRP FEM ONLY W/WO ALGRFT Right 12/03/2022 PROSTATECTOMY, RETROPUBIC RADICAL, LAP 01/07/2013 ROBOTIC LAPAROSCOPIC PROSTATECTOMY RETROPUBIC RADICAL performed by Cordell Wihtehead MD at OR [facility] REMOVE CATARACT, INSERT LENS PROSTH 2007 bilateral Problem list Patient Active Problem List Diagnosis Code HTN, goal below 140/90 I10 Gout M10.9 History of prostate cancer Z85.46 Routine general medical examination at a health care facility Z00.00 Status post lumbar spinal fusion Z98.1 MEDICATION USE AGREEMENT [id number] Type 2 diabetes mellitus with hemoglobin A1c goal of less than 8.0% ([facility]) E11.9 Persistent proteinuria R80.1 Primary open-angle glaucoma, bilateral, indeterminate stage H40.1134 Type 2 diabetes mellitus with chronic kidney disease on chronic dialysis (HCC) E11.22, N18.6, Z99.2 Calcification of aorta (HCC) I70.0 ESRD on dialysis (HCC) N18.6, Z99.2 Anemia due to chronic kidney disease, on chronic dialysis (HCC) N18.6, D63.1, Z99.2 Aneurysm of left vertebral artery ([facility]) I72.6 SSS (sick sinus syndrome) ([facility]) I49.5 Atrioventricular block, Mobitz type 1, Wenckebach I44.1 1st degree AV block I44.0 Colostomy status ([facility]) Z93.3 Medical home patient encounter Z00.8 Hypertensive CKD, ESRD on dialysis ([facility]) I12.0, N18.6, Z99.2 Altered bowel elimination due to intestinal ostomy ([facility]) K94.19 Medications Current Outpatient Medications Medication Sig Dispense Refill [...] mouth in the morning. 90 Tablet 3 Allopurinol 100 MG Oral Tablet (Zyloprim) TAKE TWO TABLETS BY MOUTH IN THE MORNING 180 Tablet 1 Metoprolol Succinate ER 25 MG Oral Tablet Extended Release 24 Hour (toPROL XL) 12.5 mg ( half) tablet daily 45 Tablet 3 Torsemide 100 MG Oral Tablet (Demadex) Take 1 Tablet by mouth in the morning. traMADol HCl 50 MG Oral Tablet (Ultram) Take 2 Tablets by mouth every 6 hours as needed for Pain, Severe. 240 Tablet 0 Sennosides 8.8 MG/5ML Oral Syrup (Senokot) Take 5 mL by mouth daily as needed for Constipation. 236mL 5 Omeprazole 40 MG Oral Capsule Delayed Release (PriLOSEC) Take 1 Capsule by mouth in the morning. 90Capsule 0 No current facility-administered medications for this visit. Assessment and plan Return to clinic in one year for follow up with brain MRA w/o contrast. The patient questions were answered thoroughly. The patient expressed understanding and elected to proceed with the above mentioned plan. Earle Murphy MD Director of Open Vascular and Endovascular Neurosurgery at [facility] [employer] Mechanic of Neurosurgery, [employer] [facility] [employer] documented in this encounter Miscellaneous Notes * Addendum Note - Munir Diamond RN - 01/23/2023 1:09 PM ESTAddended by: MUNIR DIAMOND on: 01/23/2023 01:09 PM Modules accepted: Orders documented in this encounter Plan of Treatment Upcoming Encounters Date Type Department Care Team (Latest Contact Info) Description 02/09/2023 10:06 AM EST Hospital Encounter OR [facility], OPERATING ROOM [facility], [facility] [address] [facility] [place] [address] Brian Payton MD [address] [place] [facility] [place] [address] 02/09/2023 10:06 AM EST - 02/09/2023 12:25 PM EST Surgery OR [facility], OPERATING ROOM [facility], [facility] [address] [facility] [place] [address] Brian Payton MD [address] [place] [facility] [place] [address] ARTERIOVENOUS ANASTOMOSIS OPEN DIRECT ANY SITE 03/02/2023 10:30 AM EST Office Visit General Surgery, [facility] [address] [place] [address] Josefa Li MD [address] [place] [facility] [place] [address] 03/08/2023 11:50 AM EST Office Visit Vascular Surgery, [facility] [address] [place] [address] Brian Payton MD [address] [facility], [place] [id number] 03/16/2023 2:00 PM EST Office Visit Gastroenterology, [facility] [address] [place] [address] Muriel Broussard CRNP [address] [place] [address] 04/05/2023 11:30 AM EST Office Visit Vascular Surgery, [facility] [address] [place] [address] Brian Payton MD [address] [place] [address] 06/29/2023 8:00 AM EDT Office Visit Family Practice [facility] [address] [place] [address] Barrett Dacosta MD [address] [place] [address] 01/23/2024 11:00 AM EST Telemedicine Neurosurgery, [place] [address] [place] [address] Earle Murphy MD [address] [place] [address] Scheduled Orders Name Type Priority Associated Diagnoses Orde r Schedule MRA HEAD WO CONTRAST Medical Imaging Routine Cerebral aneurysm, nonruptured Expected: 01/19/2024 (Approximate), Expires: 02/23/2024 Scheduled Procedures Name Priority Associated [...] on dialysis (HCC) End stage renal disease Cerebral aneurysm, nonruptured- Primary ESRD on dialysis (HCC) End stage [...] patient or by statute hierarchy) Care Teams Retoucher Relationship Specialty Start Date End Date Barrett Dacosta MD [address] [place] [address] PCP - General Family Medicine 04/11/18 documented as of this encounter
--- OUTSIDE RECORDS SUMMARY | 2023-03-27 18:36 | External Medical Summary | Summary of Care ---
Author Name Unknown Organization [facility] Address [address] [place] [address] Phone [phone] Care Team Providers Care Burrer Operator Name Role Phone Barrett Dacosta MD Primary Care Provider + Reason for Visit * Reason Comments Follow Up Encounter Details Date Type Department Care Team (Late st Contact Info) Description 01/18/2023 12:30 PM EST Telemedicine Neurosurgery, [place] [address] [place], [place] [id number] Earle Murphy MD [address] [place] [address] Cerebral aneurysm, nonruptured* Allergies No known active allergiesdocumented as of this encounter (statuses as of 01/18/2023) Medications Medication Sig Dispensed Refills Start Date [...] as of this encounter (statuses as of 01/18/2023) Active Problems Problem Noted Date Diagnosed Date [...] + high grade dysplasia (? Cancer--sent to [facility] for review)/esophagitis, martha 4 wk. CVA 05/26 [facility]. Left sided weakness. 05/26 TTE [facility] normal EF Grade 2 Farmer Dys. Moderate AV sclerosis and calcified mitral valve--stenosis + mod MR.mild MS. No shunt. 04/24 colon-polyp tubular adenoma. Declined f/u. 2012 adenoma. 08/18 TTE-possilbe vegetation. Mild LVH History of prostate cancer 01/09/2013 Overview: S/p resection Dr Whitehead [facility] HTN, goal below 140/90 06/04/2012 Gout 06/04/2012 Overview: 07/18 indomethicin non-form documented as of this encounter (statuses as of 01/18/2023) Resolved Problems Problem Noted Date Diagnosed Date [...] as of this encounter (statuses as of 01/18/2023) Immunizations Name Administration Dates Next Due COVID-19 mRNA, LNP-s, No Pre serve, 2-Dose Series (SweetSlap) 02/20/2021,06/17/2020,05/26/2020 Covid-19, Mrna, Lnp-s, Pf, B ivalent, [...] from lumbar stenosis. He was admitted to [facility] in early September due to [...] performed [facility] Rukhsana Gunter [facility],ADENOMATOUS POLYPS REPEAT COLONOSCOPY IN 5 YEARS COLONOSCOPY, DIAGNOSTIC (RECTUM) 05/03/2018 diverticulosis sigmoid colon/biopsies show adenomatous polyps/recall 3 years/COLONOSCOPY FLEXIBLE PROXIMAL DIAGNOSTIC performed by Rukhsana Gunter DO at ENDOSCOPY [facility] COLONOSCOPY/REMOVE LESION 2009 FRAGMENT KIDNEY STONE BY SHOCK WAVE 2008? ric INJECTION LUMBAR/SACRAL 03/28/2014 INJECTION SPINE LUMBAR OR SACRAL performed by Vicente Mcpherson DO at OR [facility] LAPAROSCOPY, W/ INSERT INTRAPERITONEAL CATH N/A 01/12/2022 LAPAROSCOPIC INSERTION INTRAPERITONEAL CANNULA OR CATHETER performed by Florentin Will MD at OR [facility] LUMBAR / SACRAL EPIDURAL, SINGLE LEVEL 08/08/2016 INJECTION TRANSFORAMINAL EPIDURAL LUMBAR OR SACRAL performed by Vicente Mcpherson DO at OR [facility] LUMBAR / SACRAL EPIDURAL, SINGLE LEVEL 08/25/2016 INJECTION TRANSFORAMINAL EPIDURAL LUMBAR OR SACRAL performed by Vicente Mcpherson DO at OR [facility] LUMBAR SPINE FUSION W/BONE GRAFT 06/11/2014 Dr Corrales 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 ex lap for SBO/sigmoid colostomy, removal PD catheter. [place] REVJ TOT HIP ARTHRP FEM ONLY W/WO ALGRFT Right 12/03/2022 PROSTATECTOMY, RETROPUBIC RADICAL, LAP 01/07/2013 ROBOTIC LAPAROSCOPIC PROSTATECTOMY RETROPUBIC RADICAL performed by Cordell hWitehead MD at OR [facility] REMOVE CATARACT, INSERT LENS PROSTH 2007 bilateral Problem list Patient Active Problem List Diagnosis Code HTN, goal below 140/90 I10 Gout M10.9 History of prostate cancer Z85.46 Routine general medical examination at a health care facility Z00.00 Status post lumbar spinal fusion Z98.1 MEDICATION USE AGREEMENT [id number] Type 2 diabetes mellitus with hemoglobin A1c goal of less than 8.0% ([facility]) E11.9 Persistent proteinuria R80.1 Primary open-angle glaucoma, bilateral, indeterminate stage H40.1134 Type 2 diabetes mellitus with chronic kidney disease on chronic dialysis ([facility]) E11.22, N18.6, Z99.2 Calcification of aorta ([facility]) I70.0 ESRD on dialysis ([facility]) N18.6, Z99.2 Anemia due to chronic kidney disease, on chronic dialysis ([facility]) N18.6, D63.1, Z99.2 Aneurysm of left vertebral artery ([facility]) I72.6 SSS (sick sinus syndrome) ([facility]) I49.5 Atrioventricular block, Mobitz type 1, Wenckebach I44.1 1st degree AV block I44.0 Colostomy status ([facility]) Z93.3 Medical home patient encounter Z00.8 Hypertensive CKD, ESRD on dialysis ([facility]) I12.0, N18.6, Z99.2 Altered bowel elimination due to intestinal ostomy ([facility]) K94.19 Medications Current Outpatient Medications Medication Sig [...] of Open Vascular and Endovascular Neurosurgery at [facility] Car [employer] Inspector of Neurosurgery, [facility] [employer] documented in this encounter Plan of Treatment Upcoming Encounters Date Type Department Care Team (Latest Contact Info) Description 02/09/2023 10:06 AM EST Hospital Encounter OR [facility], OPERATING ROOM [facility] [address] [place] [address] Brian Payton MD [address] [place] [address] 02/09/2023 10:06 AM EST - 02/09/2023 12:25 PM EST Surgery OR [facility], OPERATING ROOM [facility], [facility] [address] [place] [address] Brian Payton MD [address] [place] [address] ARTERIOVENOUS ANASTOMOSIS OPEN DIRECT ANY SITE 03/02/2023 10:30 AM EST Office Visit General Surgery, [facility] [address] [place] [address] Josefa Li MD [address] [place] [address] 03/08/2023 11:50 AM EST Office Visit Vascular Surgery, [facility] [address] [place] [address] Brian Payton MD [address] [place] [address] 03/16/2023 2:00 PM EST Office Visit Gastroenterology, [facility] [address] [place] [address] Muriel Broussard CRNP [address] [facility] [address] 04/05/2023 11:30 AM EST Office Visit Vascular Surgery, [facility] [address] [place] [address] Brian Payton MD [address] [place] [address] 06/29/2023 8:00 AM EDT Office Visit Family Practice [facility] [address] [place] [address] Barrett Dacosta MD [address] [place] [address] Scheduled Procedures Name Priority Associated Diagnoses Date/Ti [...] patient or by statute hierarchy) Care Teams Burrer Operator Relationship Specialty Start Date End Date Barrett Dacosta MD [address] [facility] [place] [address] PCP - General Family Medicine 04/11/18 documented as of this encounter
--- OUTSIDE RECORDS SUMMARY | 2023-03-27 18:36 | External Medical Summary | Summary of Care ---
Author Name Unknown Organization [facility] Address [address] [place] [address] Phone [phone] Care Team Providers Care Professional Wrestler Name Role Phone Barrett Dacosta MD Primary Care Provider + Reason for Visit * Reason Onset Date Comments Follow Up 01/16/2023 Encounter Details Date Type Department Care Team (Late st Contact Info) Description 01/16/2023 Telephone Care Coordination [address] [place] [address] [facility] [address] [place], [place] [id number] Follow Up Allergies No known active allergiesdocumented [...] left vertebral artery 06/03/2022 Overview: 05/26 [facility] Type 2 diabetes mellitus wit h chronic kidney disease on chronic dialysis 03/01/2022 Calcification of aorta 03/01/2022 ESRD on dialysis 03/01/2022 Primary open-angle glaucoma, bilateral, indeterm inate stage 02/14/2020 Persistent proteinuria 04/18/2018 Type 2 diabetes mellitus wit h hemoglobin A1c goal of less than 8.0% 11/27/2017 MEDICATION USE AGREEMENT 02/19/2015 Status post lumbar spinal fusion 06/17/2014 Overview: 06/11/14 Sai Routine general medical exam ination at a health care facility 04/24/2014 Overview: 01/26 EGD gastro-esoph mass PATH: 11/26 fall, right hip frx. 12/26 EGD + high grade dysplasia (? Cancer--sent to [facility] for review)/esophagitis, martha 4 wk. CVA 05/26 [facility]. Left sided weakness. 05/26 TTE [facility] normal EF Grade 2 Farmer Dys. Moderate [...] mRNA, LNP-s, No Pre serve, 2-Dose Series (Overdog) 02/20/2021,06/17/2020,05/26/2020 Covid-19, Mrna, Lnp-s, Pf, B ivalent, [...] Encounter - Karlee Buitrago MD - 01/23/2023 11:55 AM EST I was able to speak to him and discuss path results with him and plan forward. Will get PET scan and present him at [facility]. * Telephone Encounter - Barrett Dacosta MD [...] Telephone Encounter - [facility] - 01/16/2023 4:15 PM EST VANESSA f/u call Spoke with pt's , Jacklyn, she stated he is doing well even though he received bad news from the EGD. Pt. Is questioning what is next? Dr. Buitrago stated oncology surgeon would be contacting them orwere they suppose to contact someone. They haven't heard anything, yet. Asked to have Dr. Dacosta contact him to discuss. documented in this encounter Plan of Treatment Upcoming Encounters Date Type Department Care Team (Latest Contact Info) Description 02/09/2023 10:06 AM EST Hospital Encounter [facility], OPERATING [facility] [address] [place] [facility] [place] [address] Brian Payton MD [address] [place] [facility] [address] 02/09/2023 10:06 AM EST - 02/09/2023 12:25 PM EST Surgery OR [facility], OPERATING ROOM [facility], [facility] [address] [place] [facility] [address] Brian Payton MD [address] [place] [facility] [address] ARTERIOVENOUS ANASTOMOSIS OPEN DIRECT ANY SITE 03/02/2023 10:30 AM EST Office Visit General Surgery, [facility] [address] [place] [address] Josefa Li MD [address] [place] [address] 03/08/2023 11:50 AM EST Office Visit Vascular Surgery, [facility] [address] [place] [address] Brian Payton MD [address] [place] [address] 03/16/2023 2:00 PM EST Office Visit Gastroenterology, [facility] [address] [facility] [address] Muriel Broussard CRNP [address] [facility] [place] [address] 04/05/2023 11:30 AM EST Office Visit Vascular Surgery, [facility] [address] [place] [address] Brian Payton MD [address] [place], [place] [address] 06/29/2023 8:00 AM EDT Office Visit Family Practice [facility] [address] [place] [address] Barrett Dacosta MD [address] [place] [address] 01/23/2024 11:00 AM EST Telemedicine [facility] [place] [address] [place] [address] Earle Murphy MD [address] [place] [address] Scheduled Procedures Name Priority Associated Diagnoses Date/Ti [...] patient or by statute hierarchy) Care Teams Professional Wrestler Relationship Specialty Start Date End Date Barrett Dacosta MD [address] [place] [address] PCP - General Family Medicine 04/11/18 documented as of this encounter
--- OUTSIDE RECORDS SUMMARY | 2023-03-27 18:36 | External Medical Summary | Summary of Care ---
Author Name Unknown Organization [facility] Address [address] [facility] [place] [address] Phone [phone] Care Team Providers Care Hydroelectric Plant Technician Name Role Phone Barrett Dacosta MD Primary Care Provider + Reason for Visit * Reason Onset Date Comments Medication Refill 01/23/2023 Encounter Details Date Type Department Care Team (Late st Contact Info) Description 01/23/2023 Refill Family Practice [facility] [address] [place] [address] Barrett Dacosta MD [address] [place] [address] Acute non-recurrent sinusitis, unspecified location*; MEDICATION USE AGREEMENT; Status post lumbar spinal fusion; Chronic bilateral low back pain, unspecified whether sciatica present Allergies No known active allergiesdocumented as of [...] days. 20 Tablet 0 01/23/2023 02/02/2023 Active traMADol HCl 50 MG Oral Tablet [...] syndrome) 09/05/2022 Atrioventricular block, Mobitz type 1, Wemellykeba h 09/05/2022 1st degree AV block 09/05/2022 Anemia due to chronic kidney disease, on chronic dialysis 06/03/2022 Aneurysm of left vertebral artery 06/03/2022 Overview: 05/26 CTA [facility] Type 2 diabetes mellitus wit [...] + high grade dysplasia (? Cancer--sent to [facility] for review)/esophagitis, martha 4 wk. CVA 05/26 [facility]. Left sided weakness. 05/26 TTE [facility] normal EF Grade 2 Farmer Dys. Moderate AV sclerosis and calcified mitral valve--stenosis + mod MR.mild MS. No shunt. 04/24 colon-polyp tubular adenoma. Declined f/u. 2012 adenoma. 08/18 TTE-possilbe vegetation. Mild LVH History of prostate cancer 01/09/2013 Overview: S/p resection Dr Whitehead [facility] HTN, goal below 140/90 [...] mRNA, LNP-s, No Pre serve, 2-Dose Series ([employer]) 02/20/2021,06/17/2020,05/26/2020 Covid-19, Mrna, Lnp-s, Pf, B ivalent, [...] Dacosta MD - 01/23/2023 1:29 PM EST "I have reviewed the patient's controlled substance dispensing history in the Prescription Drug Monitoring Program in compliance with the [facility] regulations before prescribing a controlled substance." * Telephone Encounter - Katiana Starks, delimer - 01/23/2023 11:46 AM EST Did you pend patient's preferred pharmacy and medication before forwarding?yes Pharmacy: [id number] [facility] Pending Prescriptions: Disp Refills traMADol HCl 50 MG Oral Tablet (Ultram) 240 Ta*0 Sig: Take 2 Tablets by mouth every 6 hours as needed for Pain, Severe. Last Visit: 12/16/2022 (in office), 10/02/2019 (telemedicine) Next Visit: 06/29/2023 If no future appointments scheduled, and last appointment is greater than a year ago, please schedule patient for a follow-up appointment Last date the medication was ordered: 12/13/2022 Is this request for a controlled substance?Take 2 Tablets by mouth every 6 hours as needed for Pain, Severe Urine Drug Screen: Results for orders placed or performed in visit on 02/18/21 PAIN MANAGEMENT DRUG PANEL, URINE W/ INTERPRETATION Result Value Compliance Interpretation Based on the medication information provided: The positive oxycodone screening result is CONSISTENT with oxycodone use. Confirmatory testing is available upon request. Amphetamine Negative Benzodiazepines Negative Cannabinoids Negative Cocaine Metabolite Negative Hydrocodone / Hydromorphone Negative Methadone Metabolite Negative Morphine / Codeine Negative Oxycodone / Oxymorphone Positive (A) Valid Interpretation Normal Creatinine NICOLAS 17 Specific Marshall NICOLAS 1.0063 Narrative Cutoff Concentrations: Drug Level Amphetamines 500 ng/mL Benzodiazepines 100 ng/mL Cannabinoids 50 ng/mL Cocaine Metabolite 150 ng/mL Hydrocodone / Hydromorphone 300 ng/mL Methadone Metabolite 100 ng/mL Morphine / Codeine 300 ng/mL Oxycodone / Oxymorphone 100 ng/mL Screening results are presumptive and can only be used for medical purposes. Confirmatory testing is available upon request. Results for orders placed or performed in visit on 04/26/16 OPIOIDS/BENZO COMPLIANCE MONITORING TEST Result Value URINE DRUG SCREEN RESULT Amphetamine NEGATIVE Barbiturates NEGATIVE Benzodiazepines NEGATIVE Cannabinoids NEGATIVE Cocaine Metabolite NEGATIVE METHADONE METABOLITE NEGATIVE Morphine / Codeine NEGATIVE OXYCODONE POSITIVE (A) COMMENT THE ABOVE SCREENING RESULTS ARE PRESUMPTIVE AND CAN ONLY BE USED FOR MEDICAL PURPOSES. CONFIRMATORY TESTING IS AVAILABLE UPON REQUEST. Cutoff Concentration URINE VALID INTERP NORMAL CREATININE NICOLAS 98 NITRITE NICOLAS 6 pH NICOLAS 6.7 Results for orders placed or performed in visit on 02/19/15 TOX SCREEN, URINE, W/ CONFIRMATION Result Value Amphetamine NEGATIVE Barbiturates NEGATIVE Benzodiazepines NEGATIVE Cannabinoids NEGATIVE Cocaine Metabolite NEGATIVE Morphine / Codeine NEGATIVE METHADONE METABOLITE NEGATIVE OXYCODONE NEGATIVE TOX COMMENT THE ABOVE SCREENING RESULTS ARE PRESUMPTIVE AND CAN ONLY BE USED FOR MEDICAL PURPOSES. POSITIVE RESULTS REFLEX TO CONFIRMATORY TESTING. Cutoff Concentration Patient Phone Numbers Labs: Lab Results Component Value Date/Time CREAT 2.5 (H) 01/12/2023 09:37 AM CREAT 4.28 (H) 12/09/2022 12:00 AM CREAT 1.8 (H) 02/14/2020 02:41 PM POTASSIUM 4.2 01/12/2023 09:37 AM POTASSIUM 3.7 12/09/2022 12:00 AM POTASSIUM 5.0 02/14/2020 02:41 PM TSH 1.79 03/08/2022 08:33 AM LDLCALC 68 08/11/2020 09:49 AM LDLCALC 73 09/24/2019 08:07 AM LDLDIRECT 64 01/12/2023 09:37 AM LDLDIRECT NOT APPLICABLE 09/24/2019 08:07 AM ALT 45 09/01/2022 09:12 AM ALT 23 11/19/2019 12:56 PM HGBA1C 4.9 01/12/2023 09:37 AM HGBA1C 5.6 11/19/2019 12:56 PM documented in this encounter Plan of Treatment Upcoming Encounters Date Type Department Care Team (Latest Contact Info) Description 01/31/2023 8:45 AM EST Imaging Radiology [facility] [address] [place] [address] 02/09/2023 10:06 AM EST Hospital Encounter OR [facility], OPERATING ROOM [facility], [facility] [address] [place] [address] Brian Payton MD [address] [place] [address] 02/09/2023 10:06 AM EST - 02/09/2023 12:25 PM EST Surgery OR [facility], OPERATING ROOM [facility], [facility] [address] [place] [address] Brian Payton MD [address] [place] [address] ARTERIOVENOUS ANASTOMOSIS OPEN DIRECT ANY SITE 03/02/2023 10:30 AM EST Office Visit General Surgery, [facility] [address] [place] [address] Josefa Li MD [address] [place] [address] 03/08/2023 11:50 AM EST Office Visit Vascular Surgery, [facility] [address] [place] [address] Brian Payton MD [address] [place], [place] [id number] 03/16/2023 2:00 PM EST Office Visit Gastroenterology, [facility] [address] [place] [address] Muriel Broussard CRNP [address] [place] [address] 04/05/2023 11:30 AM EST Office Visit Vascular Surgery, [facility] [address] [facility] [place] [address] Brian Payton MD [address] [place] [address] 06/29/2023 8:00 AM EDT Office Visit Family Practice [facility] [address] [place] [address] Barrett Dacosta MD [address] [place] [address] 01/23/2024 11:00 AM EST Telemedicine Neurosurgery, [place] [address] [place] [address] Earle Murphy MD [address] [place] [address] Scheduled Procedures Name Priority Associated Diagnoses Date/Ti [...] on dialysis (HCC) End stage renal disease Acute non-recurrent sinusitis, unspecified location- Primary MEDICATION USE AGREEMENT Status post lumbar spinal fusion Arthrodesis status Chronic bilateral low back pain, unspecified whether sciatica present ESRD on dialysis (HCC) End stage renal [...] patient or by statute hierarchy) Care Teams Hydroelectric Plant Technician Relationship Specialty Start Date End Date Barrett Dacosta MD [address] [place] [address] PCP - General Family Medicine 04/11/18 documented as of this encounter
--- NOTE | 2023-03-27 18:43 | Cardiology Consultation ---
Date of Consultation March 27, 2023 Assessment & Plan (1) Closed hip fracture: (2) Preoperative cardiovascular examination: Plan -Patient describes stable cardiac signs and symptoms. He underwent operative intervention for a right sided hip fracture back in December and tolerated the procedure well from cardiology perspective. -The patient denies any symptoms suggestive of unstable angina, worsening arrhythmia, or unstable congestive heart failure. Recommend proceeding to the operating room with an estimated low risk of perioperative cardiac complication. History of Present Illness Attending Physician: Carlie Ennis MD History of Present Illness Mr Cason is a 77 year old male seen in cardiology consultation per the request of Anne-Marie Brito PA-C for preoperative assessment having presented after a mechanical fall with a resultant intertrochanteric fracture of the left femur. The patient has a history of borderline tachycardia-bradycardia syndrome. He has end-stage renal disease and is on hemodialysis through a tunneled catheter. He describes having had a fall after adding wood to his wood burner today. He notes feeling "shaky "and then falling down. He does not believe he lost consciousness. An echocardiogram had been performed in May, with normal ejection fraction in the range of 55 to 60%, normal left ventricular wall motion, grade 2 diastolic dysfunction, aortic valve sclerosis without stenosis, moderate mitral regurgitation. Allergies Allergy/AdvReac Type Severity Reaction Status Date / Time No Known Allergies Allergy Verified 03/27/23 13:20 Home Medications Medication Instructions Recorded Confirmed Type latanoprost 0.005 % eye drops 1 drp OPB HS 03/23/21 03/27/23 History (Xalatan) torsemide 100 mg tablet 100 mg PO QAM 05/26/22 03/27/23 History metoprolol succinate 25 mg 12.5 mg PO QAM 09/03/22 03/27/23 History tablet,extended release 24 hr tramadol 50 mg tablet 50 - 100 mg PO Q6H PRN Pain 09/03/22 03/27/23 History vitamin B complex-vitamin C-folic 1 tab PO QPM 09/05/22 03/27/23 History acid 0.8 mg tablet (Belinda-Moose) sennosides 8.8 mg/5 mL oral syrup 5 ml PO BID PRN Constipation 01/02/23 03/27/23 History (senna) sevelamer carbonate 800 mg tablet 800 mg PO UD 01/02/23 03/27/23 History (Renvela) omeprazole 40 mg capsule,delayed 40 mg PO QAM 03/27/23 03/27/23 History release Patient History Medical History Open-angle glaucoma SSS (sick sinus syndrome) History of stroke 05/25/22, f[facility] GERD (gastroesophageal reflux disease) Constipation due to opioid therapy Stercoral colitis hx Prostate cancer 2012, sx tx only Type 2 diabetes, diet controlled 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 Hx of prostatectomy robotic assisted retropubic 2012 Hx of colonoscopy History of lumbar fusion Family History Mother , at 88 Stroke Father , in 60s Heart disease Social History Smoking Status: Never smoker Tobacco Type: Smokeless Tobacco (Dip or Chew) Second Hand Exposure: No; Do You Dip or Chew Tobacco: Yes (1 can/3 days; advised); Hx Alcohol Use: Yes (hx-not anymore) Hx Substance Use: No Preferred Language: Bruneian Communication Ability: Effective Visual Impairment: No Limitations Hearing Ability: Hard of Hearing Corn Picker Required: No Beliefs That Will Affect Care: None marital status: Current Living Situation: Spouse Feels Safe at Home: Yes Assistive Devices: Cane, Glasses, Hearing Aid - Bilateral and Walker Review of Systems Review of Systems: All systems reviewed & are unremarkable except as noted in HPI & below Physical Exam Constitutional: WD/WN, vitals as above Respiratory: normal respiratory effort, lungs clear to auscultation Cardiovascular: Rate/Rhythm: regular rate and regular rhythm Heart Sounds: + murmur (1/6 systolic murmur) Extremities: no edema Neurologic: PERRL, EOMI, accommodation nl, no face palsy, no dysarthria Results & Data Vital Signs (Past 12 Hours) Vital Signs Temp Pulse Pulse Resp BP BP Pulse Ox 03/27/23 18:00 113/61 03/27/23 18:00 95 03/27/23 17:53 98 03/27/23 17:52 117/66 03/27/23 17:52 75 18 117/66 97 03/27/23 17:13 96 03/27/23 16:30 72 12 132/73 97 03/27/23 16:00 66 16 130/73 98 03/27/23 15:30 65 13 124/66 96 03/27/23 15:26 62 13 128/73 97 03/27/23 14:16 61 18 127/83 95 03/27/23 12:01 62 03/27/23 11:47 62 20 97 03/27/23 11:47 36.8 C 62 20 122/72 99 O2 Del Method 03/27/23 18:00 03/27/23 18:00 03/27/23 17:53 03/27/23 17:52 03/27/23 17:52 Room Air 03/27/23 17:13 03/27/23 16:30 Room Air 03/27/23 16:00 Room Air 03/27/23 15:30 Room Air 03/27/23 15:26 Room Air 03/27/23 14:16 Room Air 03/27/23 12:01 03/27/23 11:47 Room Air 03/27/23 11:47 Room Air Laboratory Results Cardiac Enzymes 03/27/23 Range/Units 11:50 AST 31 (13-39) U/L Coagulation 03/27/23 Range/Units 11:50 PT 10.8 (9.0-12.0) Seconds CBC 03/27/23 Range/Units 11:50 WBC 8.38 (4.8-10.8) K/ul RBC 3.37 L (4.70-6.10) M/uL Hgb 11.0 L (14.0-18.0) g/dl Hct 34.2 L (42.0-52.0) % Plt Count 256 (130-400) K/uL Neut # (Auto) 6.41 (1.40-6.50) K/uL Lymph # (Auto) 0.83 L (1.20-3.40) K/uL [place] # (Auto) 0.61 H (0.11-0.59) K/uL Eos # (Auto) 0.42 (0.00-0.50) K/uL Baso # (Auto) 0.08 (0.00-0.20) K/uL Comprehensive Metabolic Panel 03/27/23 Range/Units 11:50 Sodium 137 (136-145) mmol/L Potassium 4.5 (3.5-5.1) mmol/L Chloride 97 L (98-107) mmol/L Carbon Dioxide 32 (21-32) mmol/L BUN 26 H (6-23) mg/dl Creatinine 3.14 H (0.6-1.4) mg/dl Glucose 77 (70-99(Fasting)) mg/dl Calcium 9.6 (8.6-10.3) mg/dl AST 31 (13-39) U/L ALT 11 (7-52) U/L Alkaline Phosphatase 57 (34-104) U/L Total Protein 7.5 (6.0-8.3) gm/dl Albumin 4.1 (3.4-5.0) gm/dl Intake and Output 03/27/23 03/27/23 03/27/23 06:59 14:59 22:59 Other: Weight 67.6 kg Weight Measurement Method Built in [facility] Patient Weight 03/28/23 06:59 Weight 67.6 kg Diagnostic Findings EKG performed today 03/27/2023 and interpret independently: Sinus bradycardia 59 bpm with borderline first-degree AV block, DE interval 108 ms. Poor R wave progression noted in lead V3 unchanged compared to previous dating back to 12/03/2022 (1) Closed hip fracture Encounter type: initial encounter Laterality: left Qualified Code(s): S72.002A - Fracture of unspecified part of neck of left femur, initial encounter for closed fracture
--- NOTE | 2023-03-27 19:05 | Anesthesiology Consultation ---
Date of Service March 27, 2023 Assessment & Plan Chart Review Chart Review: Acceptable Risk for Surgery and Patient NOT seen in Pre Admission Testing Consults Requested none History Surgery Operation Date: 03/28/23 07:00 Proposed Procedures p Left Hip Open Reduction Internal Fixation - Barrett Sultana MD Height/Weight Height: 5 ft 6 in Weight: 67.6 kg Allergies Allergy/AdvReac Type Severity Reaction Status Date / Time No Known Allergies Allergy Verified 03/27/23 13:20 Medications Home Medications Medication Instructions Recorded Confirmed Last Taken latanoprost 0.005 % eye drops 1 drp OPB HS 03/23/21 03/27/23 01/12/23 21:00 (Xalatan) torsemide 100 mg tablet 100 mg PO QAM 05/26/22 03/27/23 03/27/23 04:00 metoprolol succinate 25 mg 12.5 mg PO QAM 09/03/22 03/27/23 03/27/23 04:00 tablet,extended release 24 hr tramadol 50 mg tablet 50 - 100 mg PO Q6H PRN Pain 09/03/22 03/27/23 01/12/23 16:00 vitamin B complex-vitamin C-folic 1 tab PO QPM 09/05/22 03/27/23 01/12/23 21:00 acid 0.8 mg tablet (Belinda-Moose) sennosides 8.8 mg/5 mL oral syrup 5 ml PO BID PRN Constipation 01/02/23 03/27/23 01/12/23 13:00 (senna) sevelamer carbonate 800 mg tablet 800 mg PO UD 01/02/23 03/27/23 01/12/23 17:00 (Renvela) omeprazole 40 mg capsule,delayed 40 mg PO QAM 03/27/23 03/27/23 Unknown release Active Medications Generic Name Dose Route Start Last Admin Trade Name Freq PRN Reason Stop Dose Admin Acetaminophen 1,000 mg 03/27/23 17:00 03/27/23 17:11 Acetaminophen 500 Mg Tab PO 04/26/23 16:59 1,000 mg Q8H MITZY Administration Oxycodone HCl 10 mg 03/27/23 16:36 03/27/23 17:11 Oxycodone Hcl Ir 5 Mg Tab (Immediate Release) PO 04/10/23 16:35 10 mg Q4H PRN Administration SEVERE Pain (7,8,9,10) Past Medical History Medical History Open-angle glaucoma SSS (sick sinus syndrome) History of stroke 05/25/22, f[facility]u [facility] GERD (gastroesophageal reflux disease) Constipation due to opioid therapy Stercoral colitis hx Prostate cancer 2013, sx tx only Type 2 diabetes, diet controlled 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 History of nephrolithiasis Anemia of renal disease Glaucoma Gout HLD (hyperlipidemia) HTN (hypertension) ESRD (end stage renal disease) on dialysis goes to dialysis 3x per week (M/W/F)>[facility] [place] Permacath present right upper chest Spondylolisthesis of lumbar region Lumbar stenosis with neurogenic claudication Past Family History Family History Mother , at 88 Stroke Father , in 60s Heart disease Past Surgical History Surgical History History of esophagogastroduodenoscopy (EGD) Hx of lithotripsy S/P hip hemiarthroplasty rt hip H/O exploratory laparotomy (09/09/22) Exploratory Laparotomy for Bowel Obstruction - Kishor Jorge MD, FACS Hx of cataract extraction bilat. Hx of prostatectomy robotic assisted retropubic 2013 Hx of colonoscopy History of lumbar fusion Social History Smoking Status: Never smoker tobacco type: smokeless tobacco Do You Dip or Chew Tobacco: Yes (1 can/3 days; advised) Hx Alcohol Use: Yes (hx-not anymore) Hx Substance Use: No substance use type: does not use Physical Exam Vital Signs Last Vital Signs Temp 36.8 C 03/27/23 11:47 Pulse 75 03/27/23 17:52 Resp 18 03/27/23 17:52 BP 113/61 03/27/23 18:00 Pulse Ox 95 03/27/23 18:00 O2 Del Method Room Air 03/27/23 17:52 Testing Laboratory Results 03/27/23 11:50 03/27/23 11:50 PT 10.8 Seconds (9.0-12.0) 03/27/23 11:50 INR 1.0 (0.9-1.1) 03/27/23 11:50 Blood Type A Negative 03/27/23 14:43 Antibody Screen NEGATIVE 03/27/23 14:43 Electrocardiogram Date: 03/27/23 Findings: + NSR @ and + poor R wave progression Chest X-Ray Date: 03/27/23 Findings: + cardiomegaly and + pulmonary vascular congestion Echocardiogram Date: 05/27/22 EF: 55-60 Other Findings: + diastolic dysfunction Valvular Disease: + MS (mild) and + MR (moderate)
[2023-03-27] MEDS: LATANOPROST 0.005% OP SOLN 2.5 ML BTL OPB SCH (20:56)
[2023-03-27] MEDS: NEPHROCAPS PO SCH (20:57)
[2023-03-28] MEDS: ACETAMINOPHEN 500 MG TAB PO SCH ×3 (00:50→18:09)
[2023-03-28 03:54] LABS: Hematocrit (blood only) 33.4 % (42.0-52.0); Hemoglobin 10.6 g/dl (14.0-18.0); Mean Corpuscular Hemoglobin 32.3 pg (25.0-34.0); Mean Corpuscular Hgb Conc 31.7 g/dL (32.0-36.0); Mean Corpuscular Volume 101.8 fL (80.0-100.0); Mean Platelet Volume 9.3 fL (9.4-12.4); Platelet Count 221 K/uL (130-400); RDW Coefficient of Variation 16.2 % (11.5-14.5); RDW Standard Deviation 61.6 fL (36.4-46.3); Red Blood Count 3.28 M/uL (4.70-6.10); White Blood Count 5.17 K/ul (4.8-10.8)
--- OUTSIDE RECORDS SUMMARY | 2023-03-28 04:18 | External Medical Summary | Summary of Care ---
Author Name Unknown Organization [facility] Address [address] [facility] [place] [address] Phone [phone] Care Team Providers Care Music Researcher Name Role Phone Barrett Dacosta MD Primary Care Provider + Reason for Visit * Reason Comments eRx-Medication Refill Encounter Details Date Type Department Care Team (Late st Contact Info) Description 03/27/2023 Refill Nephrology, [facility] [address] [facility] [place] [address] Srikanth Quan MD [address] [place] [address] Allergies No known active allergiesdocumented as of this encounter (statuses as of 03/27/2023) Medications Medication Sig Dispensed Refills Start Date End Date Status Latanoprost 0.005 % Ophthalmic Solution (Xalatan) Instill 1 Drop into both eyes at bedtime. 0 05/27/2020 Active Acetaminophen 325 MG Oral Tablet Take 1 Tablet by mouth every 6 hours as needed. 0 Active Belinda-Moose Oral Tablet Take 1 Tablet by mouth in the morning. 0 04/19/2022 Active Sennosides 8.8 MG/5ML Oral Syrup (Senokot) Take 5 mL by mouth daily as needed for Constipation. 236 mL 5 12/19/2022 Active Omeprazole 40 MG Oral Capsule Delayed Release (PriLOSEC) Take 1 Capsule by mouth in the morning. 90 Capsule 0 01/13/2023 Active traMADol HCl 50 MG Oral Tablet (Ultram)Indicati ons:MEDICATION USE AGREEMENT,Status post lumbar spinal fusion,Chronic bilateral [...] oxyCODONE HCl 5 MG Oral Tablet (Oxy IR)Indications:M alignant neoplasm of esophagus, unspecified location (HCC),Status post lumbar spinal fusion Take 1 Tablet by mouth every 4 hours as needed for Pain, Moderate or Pain, Severe. 1 Tablet 0 03/09/2023 Active Additional Information Patient not taking.Reported on 03/22/2023 Torsemide 100 MG Oral Tablet (Demadex) TAKE 1 TABLET BY MOUTH ONCE DAILY 0 03/27/2023 Active Torsemide 100 MG Oral Tablet (Demadex) Take 1 Tablet by mouth in the morning. 0 Discontinued documented as of this encounter (statuses as of 03/27/2023) Active Problems Problem Noted Date Diagnosed Date [...] left vertebral artery 06/03/2022 Overview: 05/26 CTA [facility] Type 2 diabetes mellitus wit [...] for review)/esophagitis, martha 4 wk. CVA 05/26 [facility]. Left sided weakness. 05/26 TTE [facility] normal EF Grade 2 Farmer [...] as of this encounter (statuses as of 03/27/2023) Resolved Problems Problem Noted Date Diagnosed Date [...] as of this encounter (statuses as of 03/27/2023) Immunizations Name Administration Dates Next Due COVID-19 mRNA, LNP-s, No Pre serve, 2-Dose Series ([employer]) 02/20/2021,06/17/2020,05/26/2020 Covid-19, Mrna, Lnp-s, Pf, B ivalent, 30 Mcg, IM, 12 yrs and above ([employer]) 12/24/2021 Hepatitis B Vaccine, Recombi nant, Adjuvanted, [...] encounter Miscellaneous Notes * Telephone Encounter - Debbie Valadez RN - 03/27/2023 10:01 AM ESTSigned Prescriptions: Disp Refills Torsemide 100 MG Oral Tablet (Demadex) Sig: TAKE 1 TABLET BY MOUTH ONCE DAILYAuthorizing Provider: Ying QUAN User: DEBBIE VALADEZ * Telephone Encounter - Debbie Valadez RN - 03/27/2023 9:53 AM EST Prescription request received from pharmacy pending. Please authorize. Dialysis pt. Order faxed to [facility]. documented in this encounter Plan of Treatment Upcoming Encounters Date Type Department Care Team (Late st Contact Info) Description 03/29/2023 9:00 AM EST Scheduled Telephone Palliative Medicine, [address] [place] [address] Co, Nurse Palliative Medicine [address] [address] 04/05/2023 11:30 AM EST Office Visit Vascular Surgery, [facility] [address] [place] [address] Brian Payton MD [address] [place] [address] 06/29/2023 8:00 AM EDT Office Visit Family Practice [facility] [address] [facility] [place] [address] Barrett Dacosta MD [address] [place] [address] 01/23/2024 11:00 AM EST Telemedicine Neurosurgery, [place] [address] [place] [address] Earle Murphy MD [address] [place] [address] Scheduled Procedures Name Priority Associated Diagnoses Date/Ti [...] filedocumented as of this encounter Advance Directives Documents on File Type Date Recorded Patient 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
[2023-03-28 04:19] LABS: BUN Creatinine Ratio 8.4 (10-20); Creatinine Clr Calc Pharmacy 12.8 ml/min; Est GFR (Non-African American) 12.1 ml/min; Potassium 5.3 mmol/L (3.5-5.1)
[2023-03-28] MEDS ORDERED: GLUCOSE 10 TAB/TUBE PO PRN (04:23)
[2023-03-28] MEDS ORDERED: CARBOHYDRATES FOR HYPOGLYCEMIA PO PRN ×2 (04:23→04:24)
[2023-03-28] MEDS ORDERED: GLUCAGON FOR INJ 1 MG VIAL SQ PRN (04:23)
[2023-03-28] MEDS ORDERED: GLUCOSE 40% GEL 15 GM TUBE PO PRN (04:23)
[2023-03-28] MEDS: DEXTROSE 50% 50 ML SYRINGE IV PRN ×2 (04:30→08:28)
[2023-03-28] MEDS ORDERED: ceFAZolin 2000MG 2,000 MG/15 ML SYR IV SCH ×2 (06:00)
[2023-03-28] MEDS: PANTOprazole 40 MG TAB PO SCH (07:22)
[2023-03-28] MEDS: METOPROLOL SUCC 25MG EXT REL TAB PO SCH (07:23)
[2023-03-28] MEDS ORDERED: DEXTROSE 50% 50 ML SYRINGE IV ONE (08:19)
--- NOTE | 2023-03-28 08:36 | History & Physical Bridge Note ---
Date of Service March 28, 2023 History & Physical Bridge Note I have examined the patient, reviewed the History & Physical and in the interval since the performance of the History & Physical I have noted the following changes of clinical significance: no changes noted
--- NOTE | 2023-03-28 08:49 | Hospitalist Progress Note ---
Date of Service March 28, 2023 Assessment & Plan (1) Fall: (2) Closed hip fracture: Plan: This is a 77yo M with a PMH of ESRD on HD, Mobitz type 1 block, DM II, history of stroke with residual L sided weakness, history of esophageal cancer with some dysphagia, h/o bowel obstruction requiring ex lap and colostomy placement in September 2022, h/o grade II diastolic dysfunction on May 2022 echo and other medical problems listed below who presents after a fall at home. Femur XR with intertrochanteric fracture of the femur with associated soft tissue swelling. Comfortable after dose of IV morphine in ED. Will continue with scheduled tylenol, lidocain patch and PRN oxycodone for severe pain [facility] ortho consulted given previous R hip repair by Dr. Marques Anesthesia consulted, pre-op abx given per hip fracture protocol Pt is now s/p L hip ORIF Per orthopedics - Assessment doing well status post ORIF of four-part intertrochanteric fracture with trochanteric femoral nail. Discussed with hospitalist c2 tactical analysis technician covering the case regarding his need for esophageal follow- up with radiation oncology. Also advised her to extend antibiotic coverage regarding the wound based on the fact that there is close proximity to his stoma bag. Additionally the DVT PE prophylaxis per medicine. Can initiate that starting 24 hours postop so anytime after 11:00 tomorrow morning. Activity level can be bed to chair as tolerated immediately and weightbearing as tolerated with walker immediately. Started ceftriaxone and flagyl, plan to cont. for 48 hrs and will closely monitor. Also discussed w/ RN to pay close attention to colostomy so that we prevent any contamination of surgical area. (3) Mobitz type 1 second degree AV block: Plan: Patient has seen Dr. Amezquita and Dr. Lanza in the past for borderline tachy bebo syndrome and had his Lopressor dose decreased to 12.5mg daily without any further issues Denies any palpitations or CP Cardiology consulted for pre-op eval - Dr. Perez feels patient is stable from cardiac perspective w/o s/sx of unstable angina, worsening arrhythmia or unstable CHF. Okay to proceed with estimated low risk of perioperative cardiac complication (4) Stroke: Plan: R MCA CVA in 2022 with some L sided residual weakness Continue atorvastatin (5) Type 2 diabetes, diet controlled: Plan: Diet controlled, most recent a1c 4.9 in 01/26 Continue diabetic diet Add BSG AC HS if AM glucose elevated (6) ESRD (end stage renal disease) on dialysis: Plan: HD MWF, dialyzed yesterday morning, has a RIJ tunneled catheter Plan to continue Renvela, torsemide following OR Nephrology consulted for HD mgmt during admission (7) HTN (hypertension): Plan: Normotensive. Continue Toprol (8) HLD (hyperlipidemia): Plan: Chronic, stable. Continue statin (9) Lumbar stenosis with neurogenic claudication: Plan: Chronic, stable. Continue pain control (will hold home tramadol while receiving oxycodone here). 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 Recently seen by Dr. Roland med onc. Considering role of chemo after rad onc evaluation. Dr. Olivas does not suggest surgical intervention given comobidities Follow up with Dr. Roland in clinic Follow up with radiation oncology - phone number and instructions written in DC instructions Admission and Anticipated Discharge Date Admission Date: March 27, 2023 Subjective Pt seen in follow up of hip fracture, s/p surg. repair today hx of ESRD on HD seen by cardiology for pre-op eval Currently laying in bed in [facility], RN present at the bedside No fever, chills, chest pain, shortness of breath. + hip pain Review of Systems Review of Systems: All systems reviewed & are unremarkable except as noted in Subjective Physical Exam Physical Exam: General: Elderly man in no acute distress Eyes: PERRL, conjunctivae normal, not pale, anicteric sclerae, EOM intact bilaterally ENMT: External ear and nose normal, oropharynx normal Neck: Normal visual inspection Respiratory: Normal respiratory effort, no respiratory distress, lungs clear to auscultation, no crackles and no wheezes Cardiovascular: RRR S1 S2 Chest (Breasts): Right anterior chest wall HD catheter Gastrointestinal (Abdomen): Abdomen is not distended, soft, non-tender to palpation, +colostomy Musculoskeletal: L hip surg. dressings applied Neurologic: Alert and oriented x 3, No focal weakness, sensation grossly intact Results & Data Results & Data Vital Signs (Past 12 Hours) Vital Signs Temp Pulse Pulse Pulse Resp BP Pulse Ox 03/28/23 08:34 36.9 C 73 20 102/59 L 97 03/28/23 07:14 71 03/28/23 03:54 36.7 C 64 16 L 16 108/59 L 95 03/28/23 00:49 74 16 112/66 94 03/27/23 23:17 72 O2 Del Method 03/28/23 08:34 Room Air 03/28/23 07:14 03/28/23 03:54 Room Air 03/28/23 00:49 Room Air 03/27/23 23:17 Laboratory Results 03/28/23 03/28/23 03/28/23 Range/Units 08:44 08:14 08:12 WBC (4.8-10.8) K/ul RBC (4.70-6.10) M/uL Hgb (14.0-18.0) g/dl Hct (42.0-52.0) % MCV (80.0-100.0) fL MCH (25.0-34.0) pg MCHC (32.0-36.0) g/dL RDW Std Deviation (36.4-46.3) fL RDW Coeff of Bayron (11.5-14.5) % Plt Count (130-400) K/uL MPV (9.4-12.4) fL Immature Gran % (Auto) % Neut % (Auto) % Lymph % (Auto) % [place] % (Auto) % Eos % (Auto) % Baso % (Auto) % Neut # (Auto) (1.40-6.50) K/uL Lymph # (Auto) (1.20-3.40) K/uL [place] # (Auto) (0.11-0.59) K/uL Eos # (Auto) (0.00-0.50) K/uL Baso # (Auto) (0.00-0.20) K/uL Immature Gran # (Auto) (0.01-0.20) K/uL PT (9.0-12.0) Seconds INR (0.9-1.1) Sodium (136-145) mmol/L Potassium (3.5-5.1) mmol/L Chloride (98-107) mmol/L Carbon Dioxide (21-32) mmol/L Anion Gap (3-11) BUN (6-23) mg/dl Creatinine (0.6-1.4) mg/dl Est Cr Clr Drug Dosing ml/min Est GFR ( Amer) ml/min Est GFR (Non-Af Amer) ml/min BUN/Creatinine Ratio (10-20) Glucose (70-99(Fasting)) mg/dl POC Glucose 120 H 70 63 L* (70-99) mg/dl Calcium (8.6-10.3) mg/dl Total Bilirubin (0.2-1.0) mg/dl AST (13-39) U/L ALT (7-52) U/L Alkaline Phosphatase (34-104) U/L Total Protein (6.0-8.3) gm/dl Albumin (3.4-5.0) gm/dl Globulin (2.5-4.0) gm/dl Albumin/Globulin Ratio (0.9-2) Nasal Screen MRSA (PCR) (Negative) Blood Type Antibody Screen 03/28/23 03/28/23 03/28/23 Range/Units 08:03 04:47 04:28 WBC (4.8-10.8) K/ul RBC (4.70-6.10) M/uL Hgb (14.0-18.0) g/dl Hct (42.0-52.0) % MCV (80.0-100.0) fL MCH (25.0-34.0) pg MCHC (32.0-36.0) g/dL RDW Std Deviation (36.4-46.3) fL RDW Coeff of Bayron (11.5-14.5) % Plt Count (130-400) K/uL MPV (9.4-12.4) fL Immature Gran % (Auto) % Neut % (Auto) % Lymph % (Auto) % [place] % (Auto) % Eos % (Auto) % Baso % (Auto) % Neut # (Auto) (1.40-6.50) K/uL Lymph # (Auto) (1.20-3.40) K/uL [place] # (Auto) (0.11-0.59) K/uL Eos # (Auto) (0.00-0.50) K/uL Baso # (Auto) (0.00-0.20) K/uL Immature Gran # (Auto) (0.01-0.20) K/uL PT (9.0-12.0) Seconds INR (0.9-1.1) Sodium (136-145) mmol/L Potassium 4.8 (3.5-5.1) mmol/L Chloride (98-107) mmol/L Carbon Dioxide (21-32) mmol/L Anion Gap (3-11) BUN (6-23) mg/dl Creatinine (0.6-1.4) mg/dl Est Cr Clr Drug Dosing ml/min Est GFR ( Amer) ml/min Est GFR (Non-Af Amer) ml/min BUN/Creatinine Ratio (10-20) Glucose (70-99(Fasting)) mg/dl POC Glucose 161 H 49 L* (70-99) mg/dl Calcium (8.6-10.3) mg/dl Total Bilirubin (0.2-1.0) mg/dl AST (13-39) U/L ALT (7-52) U/L Alkaline Phosphatase (34-104) U/L Total Protein (6.0-8.3) gm/dl Albumin (3.4-5.0) gm/dl Globulin (2.5-4.0) gm/dl Albumin/Globulin Ratio (0.9-2) Nasal Screen MRSA (PCR) (Negative) Blood Type Antibody Screen 03/28/23 03/27/23 03/27/23 Range/Units 03:33 21:00 14:43 WBC 5.17 (4.8-10.8) K/ul RBC 3.28 L (4.70-6.10) M/uL Hgb 10.6 L (14.0-18.0) g/dl Hct 33.4 L (42.0-52.0) % MCV 101.8 H (80.0-100.0) fL MCH 32.3 (25.0-34.0) pg MCHC 31.7 L (32.0-36.0) g/dL RDW Std Deviation 61.6 H (36.4-46.3) fL RDW Coeff of Bayron 16.2 H (11.5-14.5) % Plt Count 221 (130-400) K/uL MPV 9.3 L (9.4-12.4) fL Immature Gran % (Auto) % Neut % (Auto) % Lymph % (Auto) % [place] % (Auto) % Eos % (Auto) % Baso % (Auto) % Neut # (Auto) (1.40-6.50) K/uL Lymph # (Auto) (1.20-3.40) K/uL [place] # (Auto) (0.11-0.59) K/uL Eos # (Auto) (0.00-0.50) K/uL Baso # (Auto) (0.00-0.20) K/uL Immature Gran # (Auto) (0.01-0.20) K/uL PT (9.0-12.0) Seconds INR (0.9-1.1) Sodium 135 L (136-145) mmol/L Potassium 5.3 H (3.5-5.1) mmol/L Chloride 97 L (98-107) mmol/L Carbon Dioxide 27 (21-32) mmol/L Anion Gap 11 (3-11) BUN 37 H (6-23) mg/dl Creatinine 4.42 H D (0.6-1.4) mg/dl Est Cr Clr Drug Dosing 12.8 ml/min Est GFR ( Amer) 14.0 ml/min Est GFR (Non-Af Amer) 12.1 ml/min BUN/Creatinine Ratio 8.4 L (10-20) Glucose 52 L* (70-99(Fasting)) mg/dl POC Glucose (70-99) mg/dl Calcium 9.0 (8.6-10.3) mg/dl Total Bilirubin (0.2-1.0) mg/dl AST (13-39) U/L ALT (7-52) U/L Alkaline Phosphatase (34-104) U/L Total Protein (6.0-8.3) gm/dl Albumin (3.4-5.0) gm/dl Globulin (2.5-4.0) gm/dl Albumin/Globulin Ratio (0.9-2) Nasal Screen MRSA (PCR) Negative (Negative) Blood Type A Negative Antibody Screen NEGATIVE 03/27/23 Range/Units 11:50 WBC 8.38 (4.8-10.8) K/ul RBC 3.37 L (4.70-6.10) M/uL Hgb 11.0 L (14.0-18.0) g/dl Hct 34.2 L (42.0-52.0) % MCV 101.5 H (80.0-100.0) fL MCH 32.6 (25.0-34.0) pg MCHC 32.2 (32.0-36.0) g/dL RDW Std Deviation 61.1 H (36.4-46.3) fL RDW Coeff of Bayron 16.3 H (11.5-14.5) % Plt Count 256 (130-400) K/uL MPV 9.3 L (9.4-12.4) fL Immature Gran % (Auto) 0.4 % Neut % (Auto) 76.4 % Lymph % (Auto) 9.9 % [place] % (Auto) 7.3 % Eos % (Auto) 5.0 % Baso % (Auto) 1.0 % Neut # (Auto) 6.41 (1.40-6.50) K/uL Lymph # (Auto) 0.83 L (1.20-3.40) K/uL [place] # (Auto) 0.61 H (0.11-0.59) K/uL Eos # (Auto) 0.42 (0.00-0.50) K/uL Baso # (Auto) 0.08 (0.00-0.20) K/uL Immature Gran # (Auto) 0.03 (0.01-0.20) K/uL PT 10.8 (9.0-12.0) Seconds INR 1.0 (0.9-1.1) Sodium 137 (136-145) mmol/L Potassium 4.5 (3.5-5.1) mmol/L Chloride 97 L (98-107) mmol/L Carbon Dioxide 32 (21-32) mmol/L Anion Gap 8 (3-11) BUN 26 H (6-23) mg/dl Creatinine 3.14 H (0.6-1.4) mg/dl Est Cr Clr Drug Dosing 18.1 ml/min Est GFR ( Amer) 21.2 ml/min Est GFR (Non-Af Amer) 18.2 ml/min BUN/Creatinine Ratio 8.3 L (10-20) Glucose 77 (70-99(Fasting)) mg/dl POC Glucose (70-99) mg/dl Calcium 9.6 (8.6-10.3) mg/dl Total Bilirubin 0.4 (0.2-1.0) mg/dl AST 31 (13-39) U/L ALT 11 (7-52) U/L Alkaline Phosphatase 57 (34-104) U/L Total Protein 7.5 (6.0-8.3) gm/dl Albumin 4.1 (3.4-5.0) gm/dl Globulin 3.4 (2.5-4.0) gm/dl Albumin/Globulin Ratio 1.2 (0.9-2) Nasal Screen MRSA (PCR) (Negative) Blood Type Antibody Screen Medications Administered Current Inpatient Medications Acetaminophen (Acetaminophen 500 Mg Tab) 1,000 mg PO Q8H MITZY Stop: 04/26/23 16:59 Last Admin: 03/28/23 07:22 Dose: 1,000 mg Bisacodyl (Bisacodyl 10 Mg Supp) 10 mg OR DAILY PRN PRN Reason: Constipation Stop: 04/26/23 16:35 Dextrose (Dextrose 50% 50 Ml Syringe) 25 - 50 ml IV UD PRN; Protocol PRN Reason: Hypoglycemia Protocol Stop: 04/27/23 04:22 Last Admin: 03/28/23 08:28 Dose: 25 ml Glucagon (Glucagon For Inj 1 Mg Vial) 1 mg SQ UD PRN; Protocol PRN Reason: Hypoglycemia Protocol Stop: 04/27/23 04:22 Glucose (Glucose 10 Tab/Tube) 4 - 8 tab PO UD PRN; Protocol PRN Reason: Hypoglycemia Treatment Stop: 04/27/23 04:22 Glucose (Glucose 40% Gel 15 Gm Tube) 15 - 30 gm PO UD PRN; Protocol PRN Reason: Hypoglycemia Protocol Stop: 04/27/23 04:22 Cefazolin Sodium (Ancef 2000mg) 2,000 mg in 15 mls @ 3.75 mls/min IV PREOP MITZY; Protocol Stop: 03/28/23 18:00 Last Admin: 03/28/23 05:47 Dose: 3.75 mls/min Latanoprost (Latanoprost 0.005% Op Soln 2.5 Ml Btl) 1 drops OPB HS MITZY Stop: 04/26/23 20:59 Last Admin: 03/27/23 20:56 Dose: 1 drops Magnesium Hydroxide (Magnesium Hydroxide Susp 30 Ml Udc) 30 ml PO DAILY PRN PRN Reason: Constipation Stop: 04/26/23 16:35 Metoprolol Succinate (Metoprolol Succ 25mg Ext Rel Tab) 12.5 mg PO QAM [facility] Stop: 04/27/23 08:59 Last Admin: 03/28/23 07:23 Dose: 12.5 mg Miscellaneous (Carbohydrates For Hypoglycemia ) 15 - 30 gm PO UD PRN PRN Reason: Hypoglycemia Protocol Stop: 04/27/23 04:23 Naloxone HCl (Naloxone Hcl 0.4 Mg/1 Ml Vial/Carp) 0.1 mg IV UD PRN PRN Reason: Opiate Overdose Stop: 04/26/23 16:35 Ondansetron HCl (Ondansetron Inj 2 Mg/Ml 2 Ml Vial) 4 mg IV Q6H PRN PRN Reason: Nausea And Vomiting Stop: 04/26/23 16:35 Oxycodone HCl (Oxycodone Hcl Ir 5 Mg Tab (Immediate Release)) 10 mg PO Q4H PRN PRN Reason: SEVERE Pain (7,8,9,10) Stop: 04/10/23 16:35 Last Admin: 03/27/23 17:11 Dose: 10 mg Oxycodone HCl (Oxycodone Hcl Ir 5 Mg Tab (Immediate Release)) 5 mg PO Q4H PRN PRN Reason: MODERATE Pain (4,5,6) & Pre PT Stop: 04/10/23 16:35 Pantoprazole Sodium (Pantoprazole 40 Mg Tab) 40 mg PO QAM [facility] Stop: 04/27/23 08:59 Last Admin: 03/28/23 07:22 Dose: 40 mg Sennosides (Sennosides 8.8 Mg/5 Ml Udc) 8.8 mg PO BID PRN PRN Reason: Constipation Stop: 04/26/23 16:35 Vitamin B Complex/Folic Acid (Nephrocaps) 1 cap PO QPM [facility] Stop: 04/26/23 20:59 Last Admin: 03/27/23 20:57 Dose: 1 cap (2) Closed hip fracture Encounter type: initial encounter Laterality: left Qualified Code(s): S72.002A - Fracture of unspecified part of neck of left femur, initial encounter for closed fracture
[2023-03-28] MEDS: LACTATED RINGER'S 1,000 ML IV SCH (09:03)
[2023-03-28] MEDS ORDERED: BUPIVACAINE 0.5 % 5 MG/1 ML MPF 30ML VIAL ONE (09:15)
[2023-03-28] MEDS ORDERED: ceFAZolin 2000MG 2,000 MG/15 ML SYR IV ONE (10:02)
--- NOTE | 2023-03-28 10:17 | Post Operative Brief Note ---
Immediate Post Op Note v1 Date of Surgery March 28, 2023 Pre & Post Diagnosis Operation Date: 03/28/23 07:00 <No data on this case meets the specified criteria> I identified the patient and participated in the time-out.: Yes Procedure Operation Date: 03/28/23 07:00 <No data on this case meets the specified criteria> Surgeon Jaleel Giles MD Venetian Blind Tape Cutter RUBINA Estimated Blood Loss 50 Findings Consistent with Post-Op Diagnosis Drains Vega Catheter
--- NOTE | 2023-03-28 10:21 | Post Operative Brief Note ---
Immediate Post Op Note v1 Date of Surgery March 28, 2023 Pre & Post Diagnosis Operation Date: 03/28/23 07:00 Pre-Op Diagnosis: Hip Fracture left four-part intertrochanteric Post-Op Diagnosis: Hip Fracture left four-part intertrochanteric I identified the patient and participated in the time-out.: Yes Procedure Operation Date: 03/28/23 07:00 Actual Procedures p Left Hip Open Reduction Internal Fixation(Left) with intermediate dynamically loaded troches nail distally locked- Jaleel Giles MD Surgeon Jaleel Giles MD Site Operations Manager RUBINA/ Whit Estimated Blood Loss 50 Findings Consistent with Post-Op Diagnosis Four-part intertrochanteric fracture Drains Vega Catheter Complications None
--- NOTE | 2023-03-28 10:25 | Operative Report ---
Post Operative Report Procedure Date: March 28, 2023 Pre & Post Diagnosis: [Left four-part intertrochanteric fracture hip preop diagnosis Postop diagnosis left four-part informatory fracture hip] Time Out: I identified the patient and participated in the time-out. Procedure: [] Closed reduction internal fixation dynamically proximally locked trope nail distally lock. Surgeon: [Chan] Vat Overhauler: [] RUBINA/Whit Estimated Blood Loss: 50 cc] Findings: [] Four-part fracture Specimens: [] None Description of Procedure: [Hardware is a intertrochanteric troches nail 11 mm diameter] 100 mm blade 38 mm distal screw 5 mm 130 degrees on the angle of the trope nail After the patient was appropriate endophyte site verify consent provide antibiotics for him to be given the patient was carefully placed on the fracture table after he was anesthetized care taken to protect the right hip and the left hip was placed in traction and the fracture reduced with traction adduction and internal rotation slight flexion. An anatomic reduction was obtained. Using fluoroscopic control after the leg was prepped and draped use routine fashion the proximal incision was made and the guidewire placed. It was then reamed appropriately. The guidepin then passed down the shaft of the bone and then the nail passed over this. It was then verified of its appropriate insertion depth and then the hole for the blade plate was then made and the helical blade system was then placed after the wire was passed really in the center of the head on both views. It was then reamed to 100 mm and the 100 mm TFN a fenestrated helical blade was then placed. Once this was done distally the screw was then placed after localizing with fluoroscopy and the 30 screw placed and this was locked well. The screw was then dynamically locked proximally after was fully tightened and backed off half turn. Wound was then irrigated and closed with 0 Vicryl 2-0 Vicryl and standstill clips appropriate dressing applied and patient transferred to cover in satisfactory descending tolerated the procedure well. EBL was 50 cc or less crystalloid per anesthesia. Again summary of implants 11 mm/under 30 degree TFN a Synthes estela TFN is TFN a halo serrated helical screw blade and a locking screw distally 5 mm in diameter 38 mm in length. The prophylaxis and medical care will be complicated he will have appropriate medical service based on his chronic comorbidities. Attestation: I attest to the content of the Intraoperative Record and any orders documented therein. Any exceptions are noted below.
--- NOTE | 2023-03-28 10:27 | Orthopedic Progress Note ---
Date of Service March 28, 2023 Assessment & Plan Admission and Anticipated Discharge Date Admission Date: March 27, 2023 Orthopedic Progress Note Postop check patient is awake alert is moving his toes on both sides his hip is located. His fluoroscopic views reveal anatomic reduction of his four-part intertrochanteric fracture. At this point time of the need care for medical management for his dialysis and his: Colostomy and his newly diagnosed esophageal cancer. DVT prophylaxis per medicine. Antibiotic coverage for at least 72 hours.
--- NOTE | 2023-03-28 10:37 | Operative Report ---
Post Operative Report Pre & Post Diagnosis Operation Date: 03/28/23 07:00 Pre-Op Diagnosis: Hip Fracture Post-Op Diagnosis: Hip Fracture I identified the patient and participated in the time-out.: Yes Procedure Operation Date: 03/28/23 07:00 Actual Procedures p Left Hip Open Reduction Internal Fixation(Left) - Jaleel Giles MD Surgeon JUNIOR Giles MD Radiology Administrator RUBINA/ Whit SELLERS Estimated Blood Loss 50 Findings Consistent with Post-Op Diagnosis see operative report Specimens none Drains none Complications none Disposition Accompanied Patient To Recovery: Yes Indications This 77 year old male presented to the ED with a left hip intertrochanteric fracture. He elected to proceed with surgical intervention after being educated about potential risks and outcomes. Preoperative imaging has been obtained. He has a history of previous right hip fracture requiring hemiarthroplasty 4 months ago. Description of Procedure The patient was taken the operating room where he was given general anesthesia. He was prepped and draped in the usual sterile fashion. Please see Dr. Giles's operative report for specifics of the procedure. I was present for the entire case with this patient positioning through final wound closure. Assistance was provided in patient positioning, hardware placement, and final wound closure. The patient was taken to the recovery room in satisfactory condition. I attest to the content of the Intraoperative Record and any orders documented therein. Any exceptions are noted below.
--- NOTE | 2023-03-28 10:37 | Operative Report ---
Post Operative Report Pre & Post Diagnosis Operation Date: 03/28/23 07:00 Pre-Op Diagnosis: Hip Fracture Post-Op Diagnosis: Hip Fracture I identified the patient and participated in the time-out.: Yes Procedure Operation Date: 03/28/23 07:00 Actual Procedures p Left Hip Open Reduction Internal Fixation(Left) - Jaleel Giles MD Surgeon Jaleel Giles MD Assistant Producer RUBINA/ Whit Estimated Blood Loss 50 Findings Consistent with Post-Op Diagnosis Same as postoperative diagnosis Specimens None Description of Procedure Please see detailed operative note. I attest to the content of the Intraoperative Record and any orders documented therein. Any exceptions are noted below.
[2023-03-28] MEDS ORDERED: NALOXONE HCL 0.4 MG/1 ML VIAL/CARP IV PRN (10:45)
[2023-03-28] MEDS ORDERED: ATROPINE SULFATE 0.1 MG/ML 10ML SYR IV PRN (10:45)
[2023-03-28] MEDS ORDERED: LABETALOL HCL IV 5 MG/ML 20ML IV PRN (10:45)
[2023-03-28] MEDS ORDERED: ONDANSETRON INJ 2 MG/ML 2 ML VIAL IV PRN (10:45)
[2023-03-28] MEDS ORDERED: ePHEDrine sulfate 50 MG/ML AMP IV PRN (10:45)
[2023-03-28] MEDS ORDERED: FLUMAZENIL 0.1 MG/1 ML 10 ML VIAL IV PRN (10:45)
[2023-03-28] MEDS ORDERED: HYDROmorphone INJ 1 MG/ML SYRINGE IV PRN (10:45)
[2023-03-28] MEDS ORDERED: PROMETHAZINE HCL 12.5 MG in SODIUM CHLORIDE 0.9% 50 ML IV PRN (10:45)
[2023-03-28] MEDS: fentaNYL citrate PF 100 MCG/2 ML VIAL IV PRN ×4 (10:50→11:12)
[2023-03-28] MEDS ORDERED: fentaNYL citrate PF 100 MCG/2 ML VIAL ONE (10:50)
--- NOTE | 2023-03-28 11:22 | Fluoroscopy Report ---
FL hip LT 2-3V CLINICAL HISTORY: LT HIP ORIFacute fracture of the left hip COMPARISON STUDY: Radiographs 03/27/2023 FLUOROSCOPY TIME: 106.0 seconds FLUOROSCOPY IMAGES: 4 EXPOSURE DOSE: 13.95 mGy FINDINGS: Status post placement of intratrochanteric nail with medullary estela extending the acute inte rtrochanteric left femoral fracture. There is improved alignment. No dislocation unexpected opaque fo reign body. IMPRESSION: Fluoroscopic assistance as above. ACT 112: Negative or not required by law. Electronically signed by: Velasquez Reveles M.D. 03/28/2023 11:19 AM
--- NOTE | 2023-03-28 11:49 | Anesthesiology Progress Note ---
Date of Service March 28, 2023 Anesthesia Post Procedure Vital Signs Vital Signs: Temp Pulse Pulse Pulse Resp BP BP 03/28/23 11:45 69 12 103/60 03/28/23 11:30 36.5 C 65 15 107/58 L 03/28/23 11:20 70 14 111/60 03/28/23 11:10 68 19 110/67 03/28/23 11:00 69 19 126/66 03/28/23 10:50 66 13 131/71 03/28/23 10:40 65 15 118/75 03/28/23 10:31 36.2 C L 81 16 131/76 03/28/23 08:34 36.9 C 73 20 102/59 L 03/28/23 07:14 71 03/28/23 03:54 36.7 C 64 16 L 16 108/59 L 03/28/23 00:49 74 16 112/66 03/27/23 23:17 72 03/27/23 20:42 36.7 C 70 16 111/62 03/27/23 18:00 113/61 03/27/23 18:00 03/27/23 17:53 03/27/23 17:52 117/66 03/27/23 17:52 75 18 117/66 03/27/23 17:13 03/27/23 16:30 72 12 132/73 03/27/23 16:00 66 16 130/73 03/27/23 15:30 65 13 124/66 03/27/23 15:26 62 13 128/73 03/27/23 14:16 61 18 127/83 03/27/23 12:01 62 Pulse Ox O2 Del Method O2 Flow Rate 03/28/23 11:45 95 Room Air 03/28/23 11:30 94 Room Air 03/28/23 11:20 97 Room Air 03/28/23 11:10 99 Room Air 03/28/23 11:00 97 Room Air 03/28/23 10:50 97 Room Air 03/28/23 10:40 99 Room Air 03/28/23 10:31 99 Oxymask 7 03/28/23 08:34 97 Room Air 03/28/23 07:14 03/28/23 03:54 95 Room Air 03/28/23 00:49 94 Room Air 03/27/23 23:17 03/27/23 20:42 97 Room Air 03/27/23 18:00 03/27/23 18:00 95 03/27/23 17:53 98 03/27/23 17:52 03/27/23 17:52 97 Room Air 03/27/23 17:13 96 03/27/23 16:30 97 Room Air 03/27/23 16:00 98 Room Air 03/27/23 15:30 96 Room Air 03/27/23 15:26 97 Room Air 03/27/23 14:16 95 Room Air 03/27/23 12:01 Pain Intensity Right Leg: Pain Intensity: 2 Left Hip: Pain Intensity: 3 Transfer of Care Handoff Completed per policy Notes Mental Status: alert / awake / arousable Patient Amnestic to Procedure: Yes Nausea / Vomiting: adequately controlled Pain: adequately controlled Airway Patency, RR, SpO2: stable & adequate BP & HR: stable & adequate Hydration State: stable & adequate Anesthetic Complications: no major complications apparent
--- NOTE | 2023-03-28 14:04 | Cardiology Progress Note ---
Date of Service March 28, 2023 Assessment & Plan (1) Closed hip fracture: (2) Preoperative cardiovascular examination: Plan -Patient underwent left open reduction internal fixation of proximal femur fracture on 03/28/2023. -Vital signs stable. -Doing well from a cardiac perspective. Admission and Anticipated Discharge Date Admission Date: March 27, 2023 Subjective Patient seen postoperatively in room 286-2. Spouse was at the bedside. Patient was awake and conversing with the nursing staff at his outpatient dialysis center letting him know that he would not be at dialysis tomorrow as he is hospitalized. Mentating well. Postoperative pain control. Lying supine with stable respiratory status. Physical Exam Constitutional: WD/WN, vitals as above Respiratory: normal respiratory effort, lungs clear to auscultation Cardiovascular: Rate/Rhythm: regular rate and regular rhythm Heart Sounds: + murmur (1/6 systolic murmur) Extremities: no edema Neurologic: PERRL, EOMI, accommodation nl, no face palsy, no dysarthria Results & Data Vital Signs (Past 12 Hours) Vital Signs Temp Pulse Pulse Pulse Resp BP Pulse Ox 03/28/23 13:19 36.4 C L 74 16 94/53 L 98 03/28/23 13:00 73 14 114/64 97 03/28/23 12:30 71 21 113/61 98 03/28/23 12:15 71 13 118/64 97 03/28/23 12:00 68 14 108/62 96 03/28/23 11:45 69 12 103/60 95 03/28/23 11:30 36.5 C 65 15 107/58 L 94 03/28/23 11:20 70 14 111/60 97 03/28/23 11:10 68 19 110/67 99 03/28/23 11:00 69 19 126/66 97 03/28/23 10:50 66 13 131/71 97 03/28/23 10:40 65 15 118/75 99 03/28/23 10:31 36.2 C L 81 16 131/76 99 03/28/23 08:34 36.9 C 73 20 102/59 L 97 03/28/23 07:14 71 03/28/23 03:54 36.7 C 64 16 L 16 108/59 L 95 O2 Del Method O2 Flow Rate 03/28/23 13:19 Room Air 03/28/23 13:00 Room Air 03/28/23 12:30 Room Air 03/28/23 12:15 Room Air 03/28/23 12:00 Room Air 03/28/23 11:45 Room Air 03/28/23 11:30 Room Air 03/28/23 11:20 Room Air 03/28/23 11:10 Room Air 03/28/23 11:00 Room Air 03/28/23 10:50 Room Air 03/28/23 10:40 Room Air 03/28/23 10:31 Oxymask 7 03/28/23 08:34 Room Air 03/28/23 07:14 03/28/23 03:54 Room Air (1) Closed hip fracture Encounter type: initial encounter Laterality: left Qualified Code(s): S72.002A - Fracture of unspecified part of neck of left femur, initial encounter for closed fracture
--- NOTE | 2023-03-28 14:18 | Orthopedic Progress Note ---
Date of Service March 28, 2023 Assessment & Plan Admission and Anticipated Discharge Date Admission Date: March 27, 2023 Orthopedic Progress Note Postop check status post ORIF of the four-part intertrochanteric fracture left hip with trochanteric femoral nail. At this point in time he is doing well is no major issues. He denies any chest pain shortness of breath fever chills nausea vomiting or headache. Vital signs are stable he is afebrile. Neurovascular check of his femoral sciatic nerve is normal. Axial load to his leg manually does not produce pain. He does have some discomfort with active and passive logrolling resulting from stretch on his musculature. Wound dressing clean dry and intact. Calves nontender. Abdomen soft nontender. Post op fluoroscopy well looks good. Assessment doing well status post ORIF of four-part intertrochanteric fracture with trochanteric femoral nail. Discussed with hospitalist liquid yeast supervisor covering the case regarding his need for esophageal follow-up with radiation oncology. Also advised her to extend antibiotic coverage regarding the wound based on the fact that there is close proximity to his stoma bag. Additionally the DVT PE prophylaxis per medicine. Can initiate that starting 24 hours postop so anytime after 11:00 tomorrow morning. Activity level can be bed to chair as tolerated immediately and weightbearing as tolerated with walker immediately.
[2023-03-28] MEDS: metroNIDAZOLE 500 MG/100 ML BAG IV SCH ×2 (15:48→23:06)
[2023-03-28] MEDS: oxyCODONE HCL IR 5 MG TAB (IMMEDIATE RELEASE) PO PRN ×2 (16:00→20:30)
[2023-03-28] MEDS: cefTRIAXone SODIUM 2,000 MG in DEXTROSE 5 % MINI-B 50 ML IV SCH (16:27)
[2023-03-28] MEDS: ACETAMINOPHEN 1,000 MG/100 ML VIAL IV PRN (18:10)
[2023-03-28] MEDS: NEPHROCAPS PO SCH (20:31)
[2023-03-28] MEDS: LATANOPROST 0.005% OP SOLN 2.5 ML BTL OPB SCH (21:45)
[2023-03-29] MEDS: ACETAMINOPHEN 500 MG TAB PO SCH ×3 (00:38→17:04)
[2023-03-29] MEDS: oxyCODONE HCL IR 5 MG TAB (IMMEDIATE RELEASE) PO PRN ×2 (02:07→14:18)
[2023-03-29] MEDS: ACETAMINOPHEN 1,000 MG/100 ML VIAL IV PRN ×2 (05:57→15:07)
[2023-03-29 06:09] LABS: Hematocrit (blood only) 27.3 % (42.0-52.0); Mean Corpuscular Hemoglobin 32.7 pg (25.0-34.0); Mean Corpuscular Volume 99.3 fL (80.0-100.0); Mean Platelet Volume 9.5 fL (9.4-12.4); Platelet Count 207 K/uL (130-400); RDW Coefficient of Variation 16.3 % (11.5-14.5); RDW Standard Deviation 58.8 fL (36.4-46.3); Red Blood Count 2.75 M/uL (4.70-6.10); White Blood Count 5.66 K/ul (4.8-10.8)
[2023-03-29] MEDS: metroNIDAZOLE 500 MG/100 ML BAG IV SCH ×3 (06:16→22:32)
[2023-03-29 06:26] LABS: BUN Creatinine Ratio 8.4 (10-20); Calcium 8.4 mg/dl (8.6-10.3); Creatinine Clr Calc Pharmacy 9.5 ml/min; Est GFR (African American) 9.7 ml/min; Est GFR (Non-African American) 8.4 ml/min; Magnesium 2.2 mg/dl (1.7-2.4); Phosphorus 6.4 mg/dl (2.5-4.9); Potassium 5.5 mmol/L (3.5-5.1)
--- NOTE | 2023-03-29 06:45 | Orthopedic Progress Note ---
Date of Service March 29, 2023 Assessment & Plan Admission and Anticipated Discharge Date Admission Date: March 27, 2023 Orthopedic Progress Note Postop day #1 status post ORIF left four-part intertrochanteric fracture. Patient's pain is well-managed. He is little bit timid to move. He did not have much to eat yesterday. He denies chest pain shortness of breath fever chills nausea vomiting or headache. Vital signs are stable he is afebrile. Neurovascular check femoral sciatic nerve is within normal limits. Wound dressing clean dry and intact. Has no pain with axial compression of the leg has pain with movement indicating muscular soreness. Hematocrit stable at 37. Assessment overall doing reasonably well very frail individual needs PT OT he is to get on his feet needs to get better nutrition needs to get more engaged in his care. Please leave the present dressing in place so as not to get any contamination from his colostomy bag. We will change it when appropriate. DVT PE prophylaxis per medicine. PT OT order placed yesterday. Care management should be involved.
[2023-03-29] MEDS ORDERED: EPOETIN ALFA 10,000 UNITS/ML VIAL IV ONE (07:00)
[2023-03-29] MEDS ORDERED: SODIUM CHLORIDE 0.9% 1,000 ML IV PRN (07:00)
--- NOTE | 2023-03-29 09:40 | Orthopedic Progress Note ---
Date of Service March 29, 2023 Assessment & Plan (1) S/p left hip fracture: Plan: Postop day 1 status post left hip ORIF with Dr. Giles Patient is overall doing well. Weightbearing as tolerated with walker and assistance. PT/OT. Ice to operative site. Continue pain management and DVT prophylaxis per medicine. Leave dressing intact. Case management for discharge needs. Patient will follow-up with [facility] in 2 weeks. We will continue to monitor while patient is here Admission and Anticipated Discharge Date Admission Date: March 27, 2023 Subjective Patient seen and examined at bedside. He is about to go down for dialysis. He says that Dr. Sergio Trujillo saw him this morning. He is doing well. His pain is up-and-down but is controlled with medications. He denies any fevers, chills, chest pain, shortness of breath. Review of Systems 2 Review of Systems: Per HPI Physical Exam Physical Exam: Patient is lying comfortably in bed. No acute distress. His thigh is soft and compressible. His dressing is in place. Results & Data Vital Signs (Past 12 Hours) Vital Signs Temp Pulse Pulse Resp BP Pulse Ox O2 Del Method 03/29/23 08:24 36.6 C 65 20 106/63 95 Room Air 03/29/23 07:20 68 03/29/23 04:08 36.6 C 75 20 100/65 96 Room Air 03/29/23 00:33 36.4 C L 71 20 102/62 95 Room Air 03/28/23 22:04 76 Laboratory Results 03/29/23 03/29/23 03/29/23 Range/Units 08:07 05:41 01:57 WBC 5.66 (4.8-10.8) K/ul RBC 2.75 L (4.70-6.10) M/uL Hgb 9.0 L (14.0-18.0) g/dl Hct 27.3 L (42.0-52.0) % MCV 99.3 (80.0-100.0) fL MCH 32.7 (25.0-34.0) pg MCHC 33.0 (32.0-36.0) g/dL RDW Std Deviation 58.8 H (36.4-46.3) fL RDW Coeff of Bayron 16.3 H (11.5-14.5) % Plt Count 207 (130-400) K/uL MPV 9.5 (9.4-12.4) fL Sodium 135 L (136-145) mmol/L Potassium 5.5 H (3.5-5.1) mmol/L Chloride 97 L (98-107) mmol/L Carbon Dioxide 27 (21-32) mmol/L Anion Gap 11 (3-11) BUN 50 H (6-23) mg/dl Creatinine 5.97 H* D (0.6-1.4) mg/dl Est Cr Clr Drug Dosing 9.5 ml/min Est GFR ( Amer) 9.7 ml/min Est GFR (Non-Af Amer) 8.4 ml/min BUN/Creatinine Ratio 8.4 L (10-20) Glucose 78 (70-99(Fasting)) mg/dl POC Glucose 82 74 (70-99) mg/dl Calcium 8.4 L (8.6-10.3) mg/dl Phosphorus 6.4 H (2.5-4.9) mg/dl Magnesium 2.2 (1.7-2.4) mg/dl 03/28/23 03/28/23 03/28/23 Range/Units 20:42 17:31 17:30 WBC (4.8-10.8) K/ul RBC (4.70-6.10) M/uL Hgb (14.0-18.0) g/dl Hct (42.0-52.0) % MCV (80.0-100.0) fL MCH (25.0-34.0) pg MCHC (32.0-36.0) g/dL RDW Std Deviation (36.4-46.3) fL RDW Coeff of Bayron (11.5-14.5) % Plt Count (130-400) K/uL MPV (9.4-12.4) fL Sodium (136-145) mmol/L Potassium (3.5-5.1) mmol/L Chloride (98-107) mmol/L Carbon Dioxide (21-32) mmol/L Anion Gap (3-11) BUN (6-23) mg/dl Creatinine (0.6-1.4) mg/dl Est Cr Clr Drug Dosing ml/min Est GFR ( Amer) ml/min Est GFR (Non-Af Amer) ml/min BUN/Creatinine Ratio (10-20) Glucose (70-99(Fasting)) mg/dl POC Glucose 131 H 73 66 L* (70-99) mg/dl Calcium (8.6-10.3) mg/dl Phosphorus (2.5-4.9) mg/dl Magnesium (1.7-2.4) mg/dl 03/28/23 Range/Units 10:35 WBC (4.8-10.8) K/ul RBC (4.70-6.10) M/uL Hgb (14.0-18.0) g/dl Hct (42.0-52.0) % MCV (80.0-100.0) fL MCH (25.0-34.0) pg MCHC (32.0-36.0) g/dL RDW Std Deviation (36.4-46.3) fL RDW Coeff of Bayron (11.5-14.5) % Plt Count (130-400) K/uL MPV (9.4-12.4) fL Sodium (136-145) mmol/L Potassium (3.5-5.1) mmol/L Chloride (98-107) mmol/L Carbon Dioxide (21-32) mmol/L Anion Gap (3-11) BUN (6-23) mg/dl Creatinine (0.6-1.4) mg/dl Est Cr Clr Drug Dosing ml/min Est GFR ( Amer) ml/min Est GFR (Non-Af Amer) ml/min BUN/Creatinine Ratio (10-20) Glucose (70-99(Fasting)) mg/dl POC Glucose 85 (70-99) mg/dl Calcium (8.6-10.3) mg/dl Phosphorus (2.5-4.9) mg/dl Magnesium (1.7-2.4) mg/dl
--- NOTE | 2023-03-29 11:38 | Nephrology Consultation ---
Date of Consultation March 29, 2023 Assessment & Plan (1) ESRD (end stage renal disease) on dialysis: Has CVC and a maturing AVF and had dialysis without issue on Monday. has colostomy and we dont need to take much fluid off. Currently no fluid overload or Electrolyte issues. No heparin today. hgb is low and we have been giving DONNA despite Dx of Cancer. risk vs benefit. Cancer treatment plan being devised--He might get lower intensity Treatment as per Notes. Will remove about 1-1.3 kilo today. (2) S/p left hip fracture: with his prior stroke, fall, fracture and weakness he needs to use walker as cane is not enough for him. worth noting that he clearly needs to use Walker but he does not as he feels using that is as good as dying. I have asked him to use walker many times. I again advised about this. History of Present Illness Reason for Consultation: ESRD s/p fall and surgery Attending Physician: Zachary Collado MD History of Present Illness 77/M with ESRD on HD--MWF, Mobitz type 1 block, DM II, history of stroke with residual L sided weakness, history of esophageal cancer with some dysphagia ( treatment plan still being devised), h/o bowel obstruction requiring ex lap and colostomy placement in September 2022, h/o grade II diastolic dysfunction on May 2022 echo and other medical problems listed below who presents after a fall at home. Was in his basement and tripped over a shoe, falling onto left side. worth noting that he clearly needs to use Walker but he does not as he feels using that is as good as dying. I have asked him to use walker many times. he had left hip fracture and is now S/p Left ORIF. He had Dialysis On monday--no major issue. Not much fluid removed usually as he has Colostomy. Otherwise denies any acute changes. History of fall in the past with R sided hip fracture s/p surgical repair by Dr. Joshi. getting dialysis now. has CVC and a maturing AVF. ROS---pain in left hip area. Some issue with Swallowing and also C/o Colostomy issues. otherwise 12 Systems reviewed and negative Physical Exam Physical Exam: General: Elderly Frail man in no acute distress . mentally very sharp ENMT: External ear and nose normal, oropharynx normal Neck: No JVD Respiratory: Normal respiratory effort, no respiratory distress, lungs clear to auscultation, no crackles and no wheezes Cardiovascular: RRR S1 S2 Chest (Breasts): Right anterior chest wall HD catheter Gastrointestinal (Abdomen): Abdomen is not distended, soft, non-tender to palpation, +colostomy Musculoskeletal: L hip surg. dressings applied Neurologic: Alert and oriented x 3, No focal weakness, sensation grossly intact Allergies Allergy/AdvReac Type Severity Reaction Status Date / Time No Known Allergies Allergy Verified 03/27/23 13:20 Home Medications Medication Instructions Recorded Confirmed Type latanoprost 0.005 % eye drops 1 drp OPB HS 03/23/21 03/27/23 History (Xalatan) torsemide 100 mg tablet 100 mg PO QAM 05/26/22 03/27/23 History metoprolol succinate 25 mg 12.5 mg PO QAM 09/03/22 03/27/23 History tablet,extended release 24 hr tramadol 50 mg tablet 50 - 100 mg PO Q6H PRN Pain 09/03/22 03/27/23 History vitamin B complex-vitamin C-folic 1 tab PO QPM 09/05/22 03/27/23 History acid 0.8 mg tablet (Belinda-Moose) sennosides 8.8 mg/5 mL oral syrup 5 ml PO BID PRN Constipation 01/02/23 03/27/23 History (senna) sevelamer carbonate 800 mg tablet 800 mg PO UD 01/02/23 03/27/23 History (Renvela) omeprazole 40 mg capsule,delayed 40 mg PO QAM 03/27/23 03/27/23 History release Patient History Medical History Open-angle glaucoma SSS (sick sinus syndrome) History of stroke 05/25/22, f/u [facility] GERD (gastroesophageal reflux disease) Constipation due to opioid therapy Stercoral colitis hx Prostate cancer 2012, sx tx only Type 2 diabetes, diet controlled 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 Hx of prostatectomy robotic assisted retropubic 2013 Hx of colonoscopy History of lumbar fusion Family History Mother , at 88 Stroke Father , in 60s Heart disease Social History Smoking Status: Never smoker Tobacco Type: Smokeless Tobacco (Dip or Chew) Second Hand Exposure: No; Do You Dip or Chew Tobacco: Yes (1 can/3 days; advised); Hx Alcohol Use: No Hx Substance Use: No Preferred Language: Mauritian Communication Ability: Effective Visual Impairment: No Limitations Hearing Ability: Hard of Hearing Educational Guidance Counselor Required: No Beliefs That Will Affect Care: None marital status: Current Living Situation: Spouse Other Information That Helps Us Care for You: No Feels Safe at Home: Yes Safety Concerns: Feels Safe At This Time Assistive Devices: Cane, Glasses and Walker Results & Data Vital Signs (Past 12 Hours) Vital Signs Temp Pulse Pulse Pulse Resp BP BP 03/29/23 11:00 79 101/60 03/29/23 10:30 79 95/59 L 03/29/23 10:00 72 97/53 L 03/29/23 09:34 37 C 74 108/62 03/29/23 09:30 37.0 C 74 03/29/23 09:10 03/29/23 08:24 36.6 C 65 20 106/63 03/29/23 07:20 68 03/29/23 04:08 36.6 C 75 20 100/65 03/29/23 00:33 36.4 C L 71 20 102/62 Pulse Ox O2 Del Method 03/29/23 11:00 03/29/23 10:30 03/29/23 10:00 03/29/23 09:34 03/29/23 09:30 03/29/23 09:10 Room Air 03/29/23 08:24 95 Room Air 03/29/23 07:20 03/29/23 04:08 96 Room Air 03/29/23 00:33 95 Room Air
[2023-03-29] MEDS: LACTATED RINGER'S 1,000 ML IV SCH (13:13)
[2023-03-29] MEDS: METOPROLOL SUCC 25MG EXT REL TAB PO SCH (14:59)
[2023-03-29] MEDS: PANTOprazole 40 MG TAB PO SCH (15:00)
[2023-03-29] MEDS: SENNOSIDES 8.8 MG/5 ML UDC PO PRN (15:01)
[2023-03-29] MEDS: cefTRIAXone SODIUM 2,000 MG in DEXTROSE 5 % MINI-B 50 ML IV SCH (15:29)
--- NOTE | 2023-03-29 15:34 | Hospitalist Progress Note ---
Date of Service March 29, 2023 Assessment & Plan (1) Fall: (2) Closed hip fracture: Plan: per admitting service: This is a 77yo M with a PMH of ESRD on HD, Mobitz type 1 block, DM II, history of stroke with residual L sided weakness, history of esophageal cancer with some dysphagia, h/o bowel obstruction requiring ex lap and colostomy placement in September 2022, h/o grade II diastolic dysfunction on May 2022 echo and other medical problems listed below who presents after a fall at home. Femur XR with intertrochanteric fracture of the femur with associated soft tissue swelling. Comfortable after dose of IV morphine in ED. Will continue with scheduled tylenol, lidocain patch and PRN oxycodone for severe pain [facility] ortho consulted given previous R hip repair by Dr. Marques Anesthesia consulted, pre-op abx given per hip fracture protocol Pt is now s/p L hip ORIF Per orthopedics - Assessment doing well status post ORIF of four-part intertrochanteric fracture with trochanteric femoral nail. Discussed with hospitalist weed cooking operator covering the case regarding his need for esophageal follow- up with radiation oncology. Also advised her to extend antibiotic coverage regarding the wound based on the fact that there is close proximity to his stoma bag. Additionally the DVT PE prophylaxis per medicine. Can initiate that starting 24 hours postop so anytime after 11:00 tomorrow morning. Activity level can be bed to chair as tolerated immediately and weightbearing as tolerated with walker immediately. Started ceftriaxone and flagyl, plan to cont. for 48 hrs and will closely deep tor. Also discussed w/ RN to pay close attention to colostomy so that we prevent any contamination of surgical area. 03/29 stable overall continue Ceftri + Flagyl continue pain management PT/OT start Heparin SC for DVT prophylaxis (3) Mobitz type 1 second degree AV block: Plan: Patient has seen Dr. Amezquita and Dr. Lanza in the past for borderline tachy bebo syndrome and had his Lopressor dose decreased to 12.5mg daily without any further issues Denies any palpitations or CP Cardiology consulted for pre-op eval - Dr. Perez feels patient is stable from cardiac perspective w/o s/sx of unstable angina, worsening arrhythmia or unstable CHF. Okay to proceed with estimated low risk of perioperative cardiac complication no cardiac symptoms HR 80s (4) Stroke: Plan: R MCA CVA in 2022 with some L sided residual weakness Continue atorvastatin (5) Type 2 diabetes, diet controlled: Plan: Diet controlled, most recent a1c 4.9 in 01/26 Continue diabetic diet (6) ESRD (end stage renal disease) on dialysis: Plan: HD MWF, dialyzed yesterday morning, has a RIJ tunneled catheter Plan to continue Renvela, torsemide following OR Nephrology consulted for HD mgmt during admission (7) HTN (hypertension): Plan: Normotensive. Continue Toprol (8) HLD (hyperlipidemia): Plan: Chronic, stable. Continue statin (9) Lumbar stenosis with neurogenic claudication: Plan: Chronic, stable. Continue pain control (will hold home tramadol while receiving oxycodone here). 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 Recently seen by Dr. Roland med onc. Considering role of chemo after rad onc evaluation. Dr. Olivas does not suggest surgical intervention given comobidities Follow up with Dr. Roland in clinic Follow up with radiation oncology - phone number and instructions written in DC instructions Plan plan of care discussed with patient in detail and at length all questions answered he is understanding, agreeable, comfortable with the plan of care Admission and Anticipated Discharge Date Admission Date: March 27, 2023 Subjective ff up for s/p L hip surgery, etc seen resting in bed, comfortable states he feels ok overall L hip pain increased after PT otherwise, no chest pain, dyspnea, palpitations, dizziness no other new symptoms Review of Systems Review of Systems: all noted and negative except for above Physical Exam Physical Exam: General- oriented x 3, not in distress, speaks in sentences with no effort or accessory muscle use Eyes- anicteric Neck- no JVD Lungs- clear breath sounds bilaterally, no rales/wheezes Heart- normal rate, regular rhythm; no murmurs Abdomen- normal bowel sounds, nondistended, soft, nontender (+) colostomy bag: brown formed stools Extremities- no pretibial edema, no calf tenderness L hip: dressing in place, no bleeding or discharge Neuro- alert, oriented x 3; no gross focal neurologic deficits Skin- warm & dry Results & Data Results & Data Vital Signs (Past 12 Hours) Vital Signs Temp Pulse Pulse Pulse Resp BP BP 03/29/23 15:30 36.8 C 83 20 105/63 03/29/23 15:23 84 03/29/23 13:28 36.4 C L 80 16 109/62 03/29/23 13:15 36.5 C 72 109/53 L 03/29/23 13:10 36.5 C 72 109/53 L 03/29/23 13:04 84 99/54 L 03/29/23 13:00 91 H 98/62 L 03/29/23 12:30 80 102/59 L 03/29/23 12:00 83 102/59 L 03/29/23 11:30 68 108/62 03/29/23 11:00 79 101/60 03/29/23 10:30 79 95/59 L 03/29/23 10:00 72 97/53 L 03/29/23 09:34 37 C 74 108/62 03/29/23 09:30 37.0 C 74 03/29/23 09:10 03/29/23 08:24 36.6 C 65 20 106/63 03/29/23 07:20 68 03/29/23 04:08 36.6 C 75 20 100/65 Pulse Ox O2 Del Method 03/29/23 15:30 97 Room Air 03/29/23 15:23 03/29/23 13:28 97 Room Air 03/29/23 13:15 03/29/23 13:10 03/29/23 13:04 03/29/23 13:00 03/29/23 12:30 03/29/23 12:00 03/29/23 11:30 03/29/23 11:00 03/29/23 10:30 03/29/23 10:00 03/29/23 09:34 03/29/23 09:30 03/29/23 09:10 Room Air 03/29/23 08:24 95 Room Air 03/29/23 07:20 03/29/23 04:08 96 Room Air all noted and reviewed including below (2) Closed hip fracture Encounter type: initial encounter Laterality: left Qualified Code(s): S72.002A - Fracture of unspecified part of neck of left femur, initial encounter for closed fracture
--- NOTE | 2023-03-29 16:45 | Cardiology Progress Note ---
Date of Service March 29, 2023 Assessment & Plan (1) Closed hip fracture: (2) Preoperative cardiovascular examination: Plan -Patient underwent left open reduction internal fixation of proximal femur fracture on 03/28/2023. -Vital signs stable. Remained stable from cardiac standpoint. Agree with increase mobilization and fall precautions No tachycardia or bradycardia arrhythmias. Discussed potential increased orthostasis days of dialysis and avoidance of positional changes, use of walker advised Admission and Anticipated Discharge Date Admission Date: March 27, 2023 Subjective Patient seen and examined, chart, medications, telemetry reviewed. No arrhythmias no cardiac complaints Beginning physical therapy for mobilization Tolerated dialysis today no significant hypotension Notes diagnosis of esophageal cancer with planned possible chemotherapy/radiation Review of Systems Review of Systems: All systems reviewed & are unremarkable except as noted in Subjective Physical Exam Constitutional: + thin; no acute distress Eyes: PERRL, conjunctivae normal, anicteric sclerae Neck: trachea midline, no thyromegaly Respiratory: normal respiratory effort, lungs clear to auscultation Cardiovascular: Rate/Rhythm: regular rate and regular rhythm Heart Sounds: + murmur (1/6 systolic murmur) Extremities: no edema Neurologic: PERRL, EOMI, accommodation nl, no face palsy, no dysarthria Results & Data Vital Signs (Past 12 Hours) Vital Signs Temp Pulse Pulse Pulse Resp BP BP 03/29/23 15:30 36.8 C 83 20 105/63 03/29/23 15:23 84 03/29/23 13:28 36.4 C L 80 16 109/62 03/29/23 13:15 36.5 C 72 109/53 L 03/29/23 13:10 36.5 C 72 109/53 L 03/29/23 13:04 84 99/54 L 03/29/23 13:00 91 H 98/62 L 03/29/23 12:30 80 102/59 L 03/29/23 12:00 83 102/59 L 03/29/23 11:30 68 108/62 03/29/23 11:00 79 101/60 03/29/23 10:30 79 95/59 L 03/29/23 10:00 72 97/53 L 03/29/23 09:34 37 C 74 108/62 03/29/23 09:30 37.0 C 74 03/29/23 09:10 03/29/23 08:24 36.6 C 65 20 106/63 03/29/23 07:20 68 Pulse Ox O2 Del Method 03/29/23 15:30 97 Room Air 03/29/23 15:23 03/29/23 13:28 97 Room Air 03/29/23 13:15 03/29/23 13:10 03/29/23 13:04 03/29/23 13:00 03/29/23 12:30 03/29/23 12:00 03/29/23 11:30 03/29/23 11:00 03/29/23 10:30 03/29/23 10:00 03/29/23 09:34 03/29/23 09:30 03/29/23 09:10 Room Air 03/29/23 08:24 95 Room Air 03/29/23 07:20 Laboratory Results Laboratory Results - last 24 hr 03/28/23 03/28/23 03/28/23 17:30 17:31 20:42 WBC RBC Hgb Hct MCV MCH MCHC RDW Std Deviation RDW Coeff of Bayron Plt Count MPV Sodium Potassium Chloride Carbon Dioxide Anion Gap BUN Creatinine Est Cr Clr Drug Dosing Est GFR ( Amer) Est GFR (Non-Af Amer) BUN/Creatinine Ratio Glucose POC Glucose 66 L* 73 131 H Calcium Phosphorus Magnesium 03/29/23 03/29/23 03/29/23 01:57 05:41 08:07 WBC 5.66 RBC 2.75 L Hgb 9.0 L Hct 27.3 L MCV 99.3 MCH 32.7 MCHC 33.0 RDW Std Deviation 58.8 H RDW Coeff of Bayron 16.3 H Plt Count 207 MPV 9.5 Sodium 135 L Potassium 5.5 H Chloride 97 L Carbon Dioxide 27 Anion Gap 11 BUN 50 H Creatinine 5.97 H* D Est Cr Clr Drug Dosing 9.5 Est GFR ( Amer) 9.7 Est GFR (Non-Af Amer) 8.4 BUN/Creatinine Ratio 8.4 L Glucose 78 POC Glucose 74 82 Calcium 8.4 L Phosphorus 6.4 H Magnesium 2.2 03/29/23 14:18 WBC RBC Hgb Hct MCV MCH MCHC RDW Std Deviation RDW Coeff of Bayron Plt Count MPV Sodium Potassium Chloride Carbon Dioxide Anion Gap BUN Creatinine Est Cr Clr Drug Dosing Est GFR ( Amer) Est GFR (Non-Af Amer) BUN/Creatinine Ratio Glucose POC Glucose 129 H Calcium Phosphorus Magnesium (1) Closed hip fracture Encounter type: initial encounter Laterality: left Qualified Code(s): S72.002A - Fracture of unspecified part of neck of left femur, initial encounter for closed fracture
[2023-03-29] MEDS: LATANOPROST 0.005% OP SOLN 2.5 ML BTL OPB SCH (20:27)
[2023-03-29] MEDS: NEPHROCAPS PO SCH (20:28)
[2023-03-30] MEDS: ACETAMINOPHEN 500 MG TAB PO SCH ×3 (01:14→17:01)
[2023-03-30] MEDS: metroNIDAZOLE 500 MG/100 ML BAG IV SCH (06:15)
--- NOTE | 2023-03-30 06:42 | Orthopedic Progress Note ---
Date of Service March 30, 2023 Assessment & Plan Admission and Anticipated Discharge Date Admission Date: March 27, 2023 Orthopedic Progress Note Postop day #2 status post ORIF 4 part intertrochanteric fracture left hip. Continues to course. Denies any new issues. Vital signs are stable he is afebrile. Neurovascular check femoral sciatic nerve is normal wound dressing clean dry and intact. Assessment continue PT OT placement issues. Consultation with radiation oncology being arranged through hospitalist. Keep wound occluded with dressing secondary to proximity of colostomy at all times. Can be placed/discharged from orthopedic perspective once stable from a medical perspective.
[2023-03-30] MEDS: METOPROLOL SUCC 25MG EXT REL TAB PO SCH (09:31)
[2023-03-30] MEDS: SENNOSIDES 8.8 MG/5 ML UDC PO PRN (09:32)
[2023-03-30] MEDS: oxyCODONE HCL IR 5 MG TAB (IMMEDIATE RELEASE) PO PRN ×2 (09:32→13:53)
[2023-03-30] MEDS: PANTOprazole 40 MG TAB PO SCH (09:35)
--- NOTE | 2023-03-30 10:16 | Orthopedic Progress Note ---
Date of Service March 30, 2023 Assessment & Plan (1) S/p left hip fracture: Plan: The patient was educated regarding today's findings. Conservative care measures were discussed. He states that based on his previous right hip hemiarthroplasty, he thinks he will be ready to go home with home health either over the weekend or on Monday. He does not wish to go to [facility] or a [facility]. Continue to progress PT. Continue with DVT prophylaxis. He will be reassessed tomorrow. Admission and Anticipated Discharge Date Admission Date: March 27, 2023 Subjective This 77-year-old male is seen today in his room. He is 2 days status post left hip ORIF with trochanteric nail. He is working with physical therapy at the time of my encounter. He states he is feeling pretty good this morning. He feels he is able to move better today compared to yesterday. He denies any numbness or tingling. Pain is tolerable. He would like to go home upon discharge so that he can continue with his dialysis regimen. He denies any chest pain, shortness of breath, nausea, or vomiting. Physical Exam Physical Exam: General: Frail, elderly male, in no acute distress. Sitting in a chair. Alert and oriented. Conversive. Skin: Warm and dry with fair turgor. No rashes. Postsurgical dressing is in place on the left hip and thigh. It is dry. Musculoskeletal: The patient is intact active motion of the hip, knee, ankle, and toes. Active hip motion is limited. Passively he has no significant discomfort with hip flexion, hip Ab/adduction, or rotation. He is able to bear weight through the leg using his walker. Transfers require a two-person assist. Neurologic: Gross sensation is intact across the left leg by soft touch. Peripheral pulses are 2+. Results & Data Vital Signs (Past 12 Hours) Vital Signs Temp Pulse Pulse Resp BP Pulse Ox O2 Del Method 03/30/23 07:56 36.6 C 75 20 113/70 97 Room Air 03/30/23 02:29 36.8 C 73 16 111/57 L 96 Room Air 03/29/23 22:50 36.5 C 81 18 109/59 L 97 Room Air
--- NOTE | 2023-03-30 11:36 | Cardiology Progress Note ---
Date of Service March 30, 2023 Assessment & Plan (1) Closed hip fracture: (2) Preoperative cardiovascular examination: Plan -Patient underwent left open reduction internal fixation of proximal femur fracture on 03/28/2023. -Vital signs stable. Remained stable from cardiac standpoint. Agree with increase mobilization and fall precautions No tachycardia or bradycardia arrhythmias. Discussed potential increased orthostasis days of dialysis and avoidance of positional changes, use of walker advised Stable from cardiac standpoint will sign off, contact with questions Admission and Anticipated Discharge Date Admission Date: March 27, 2023 Subjective Patient seen and examined, chart, medications, telemetry reviewed Ambulated 4 steps this morning with the aid No chest pain shortness of breath dizziness or lightheadedness no syncope or near syncope no arrhythmias on telemetry Hip pain controlled Review of Systems Review of Systems: All systems reviewed & are unremarkable except as noted in Subjective Physical Exam Constitutional: WD/WN, vitals as above + thin; no acute distress Eyes: PERRL, conjunctivae normal, anicteric sclerae Neck: trachea midline, no thyromegaly Respiratory: normal respiratory effort, lungs clear to auscultation Cardiovascular: Rate/Rhythm: regular rate and regular rhythm Heart Sounds: + murmur (1/6 systolic murmur) Extremities: no edema Neurologic: PERRL, EOMI, accommodation nl, no face palsy, no dysarthria Results & Data Vital Signs (Past 12 Hours) Vital Signs Temp Pulse Pulse Resp BP Pulse Ox O2 Del Method 03/30/23 07:56 36.6 C 75 20 113/70 97 Room Air 03/30/23 02:29 36.8 C 73 16 111/57 L 96 Room Air Laboratory Results Laboratory Results - last 24 hr 03/29/23 03/29/23 03/29/23 14:18 17:22 20:16 POC Glucose 129 H 169 H 139 H (1) Closed hip fracture Encounter type: initial encounter Laterality: left Qualified Code(s): S72.002A - Fracture of unspecified part of neck of left femur, initial encounter for closed fracture
--- NOTE | 2023-03-30 18:14 | Hospitalist Progress Note ---
Date of Service March 30, 2023 delayed entry date of service noted above Assessment & Plan (1) Fall: (2) Closed hip fracture: Plan: per admitting service: This is a 77yo M with a PMH of ESRD on HD, Mobitz type 1 block, DM II, history of stroke with residual L sided weakness, history of esophageal cancer with some dysphagia, h/o bowel obstruction requiring ex lap and colostomy placement in September 2022, h/o grade II diastolic dysfunction on May 2022 echo and other medical problems listed below who presents after a fall at home. Femur XR with intertrochanteric fracture of the femur with associated soft tissue swelling. Comfortable after dose of IV morphine in ED. Will continue with scheduled tylenol, lidocain patch and PRN oxycodone for severe pain [facility] ortho consulted given previous R hip repair by Dr. Marques Anesthesia consulted, pre-op abx given per hip fracture protocol Pt is now s/p L hip ORIF Per orthopedics - Assessment doing well status post ORIF of four-part intertrochanteric fracture with trochanteric femoral nail. Discussed with hospitalist fan installer covering the case regarding his need for esophageal follow- up with radiation oncology. Also advised her to extend antibiotic coverage reg arding the wound based on the fact that there is close proximity to his stoma bag. Additionally the DVT PE prophylaxis per medicine. Can initiate that starting 24 hours postop so anytime after 11:00 tomorrow morning. Activity level can be bed to chair as tolerated immediately and weightbearing as tolerated with walker immediately. Started ceftriaxone and flagyl, plan to cont. for 48 hrs and will closely monitor. Also discussed w/ RN to pay close attention to colostomy so that we prevent any contamination of surgical area. 03/29 stable overall continue Ceftri + Flagyl continue pain management PT/OT start Heparin SC for DVT prophylaxis 03/30 Remains stable Continue ceftriaxone plus Flagyl Continue pain control, PT/OT (3) Mobitz type 1 second degree AV block: Plan: Patient has seen Dr. Amezquita and Dr. Lanza in the past for borderline tachy bebo syndrome and had his Lopressor dose decreased to 12.5mg daily without any further issues Denies any palpitations or CP Cardiology consulted for pre-op eval - Dr. Perez feels patient is stable from cardiac perspective w/o s/sx of unstable angina, worsening arrhythmia or unstable CHF. Okay to proceed with estimated low risk of perioperative cardiac complication no cardiac symptoms HR 80s (4) Stroke: Plan: R MCA CVA in 2022 with some L sided residual weakness Continue atorvastatin (5) Type 2 diabetes, diet controlled: Plan: Diet controlled, most recent a1c 4.9 in 01/26 Continue diabetic diet (6) ESRD (end stage renal disease) on dialysis: Plan: HD MWF, dialyzed yesterday morning, has a RIJ tunneled catheter Plan to continue Renvela, torsemide following OR Nephrology consulted for HD mgmt during admission (7) HTN (hypertension): Plan: Normotensive. Continue Toprol (8) HLD (hyperlipidemia): Plan: Chronic, stable. Continue statin (9) Lumbar stenosis with neurogenic claudication: Plan: Chronic, stable. Continue pain control (will hold home tramadol while receiving oxycodone here). 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 Recently seen by Dr. Roland med onc. Considering role of chemo after rad onc evaluation. Dr. Olivas does not suggest surgical intervention given comobidities Follow up with Dr. Roland in clinic Follow up with radiation oncology - phone number and instructions written in DC instructions Plan plan of care discussed with patient in detail and at length all questions answered he is understanding, agreeable, comfortable with the plan of care Admission and Anticipated Discharge Date Admission Date: March 27, 2023 Subjective Follow-up for status post hip surgery, etc. Seen resting in bed, comfortable, not in distress In good spirits Still having pain on the left hip, worse with movement Otherwise feels fine overall No other new symptoms Review of Systems Review of Systems: all noted and negative except for above Physical Exam Physical Exam: General- oriented x 3, not in distress, speaks in sentences with no effort or accessory muscle use Eyes- anicteric Neck- no JVD Lungs- clear breath sounds bilaterally, no crackles or wheezing Heart- normal rate, regular rhythm; no murmurs Abdomen- normal bowel sounds, nondistended, soft, no tenderness Extremities- no pretibial edema, no calf tenderness Neuro- alert, oriented x 3; no gross focal neurologic deficits Skin- warm & dry Results & Data Results & Data Vital Signs (Past 12 Hours) Vital Signs Temp Pulse Pulse Resp BP Pulse Ox O2 Del Method 03/30/23 15:04 36.5 C 75 20 120/67 98 Room Air 03/30/23 15:00 81 03/30/23 11:42 36.6 C 75 20 99/60 L 98 Room Air 03/30/23 08:00 72 03/30/23 07:56 36.6 C 75 20 113/70 97 Room Air all noted and reviewed including below (2) Closed hip fracture Encounter type: initial encounter Laterality: left Qualified Code(s): S72.002A - Fracture of unspecified part of neck of left femur, initial encounter for closed fracture
[2023-03-30] MEDS: NEPHROCAPS PO SCH (21:08)
[2023-03-30] MEDS: LATANOPROST 0.005% OP SOLN 2.5 ML BTL OPB SCH (21:08)
[2023-03-31] MEDS: ACETAMINOPHEN 500 MG TAB PO SCH ×2 (03:46→08:24)
[2023-03-31] MEDS ORDERED: EPOETIN ALFA 10,000 UNITS/ML VIAL IV ONE (07:00)
[2023-03-31] MEDS ORDERED: SODIUM CHLORIDE 0.9% 1,000 ML IV PRN (07:00)
[2023-03-31] MEDS: PANTOprazole 40 MG TAB PO SCH (08:24)
--- NOTE | 2023-03-31 10:20 | Orthopedic Progress Note ---
Date of Service March 31, 2023 Assessment & Plan (1) S/p left hip fracture: Plan: The patient was educated regarding today's findings. Patient will continue with participation with PT and OT. Patient is hoping that he can go home either over the weekend or early next week. He does not wish to go to [facility] or a half-way facility. We did discuss his safety with mobility and until he gets stronger may need to consider placement. Continue with DVT prophylaxis. We will continue to follow and monitor case management updates during his stay. Please do not hesitate to reach out to [facility] orthopedics if any questions or concerns. Present on Admission?: Yes Admission and Anticipated Discharge Date Admission Date: March 27, 2023 Subjective Patient is a 77-year-old male who is a patient of Dr. Hahn. He is seen bedside this a.m. sitting upright in bed with his breakfast tray. He is postop day #3 status post a left hip ORIF. He states he feels each day he is getting stronger. He states he has some pain in the left hip especially with movement. He states that he just rest he does not notice much pain. He does rate his pain right now is 3/10. He states he does feel he is still weak and contributes a lot of this due to dialysis. He denies any fever, chills, nausea or vomiting, chest pain, shortness of breath, or calf pain. He offers no concerns Review of Systems Review of Systems: Please refer to HPI Physical Exam Physical Exam: General: Frail, elderly male, in no acute distress. Sitting upright in bed alert and oriented. In good spirits. Skin: Warm and dry with fair turgor. No rashes. Postsurgical dressing is in place on the left hip and thigh. It is dry. Musculoskeletal: Patient is able to tolerate active assist range of motion to the left hip with min discomfort reported with internal and external rotation. He is able to assist with hip flexion with discomfort in the groin. He is able to actively dorsiflex and plantarflex ankle and flex toes without difficulty. He is unable to perform a straight leg raise without assistance Neurologic: Gross sensation is intact across the left leg by soft touch. Peripheral pulses are 2+. Results & Data Vital Signs (Past 12 Hours) Vital Signs Temp Pulse Pulse Pulse Resp BP BP 03/31/23 09:11 75 120/61 03/31/23 09:04 36.5 C 81 03/31/23 08:05 75 03/31/23 07:30 36.5 C 76 16 115/69 03/31/23 03:25 36.6 C 76 18 117/67 03/31/23 00:00 86 03/30/23 23:09 36.5 C 76 18 112/61 Pulse Ox O2 Del Method 03/31/23 09:11 03/31/23 09:04 03/31/23 08:05 03/31/23 07:30 98 Room Air 03/31/23 03:25 97 Room Air 03/31/23 00:00 03/30/23 23:09 96 Room Air
--- NOTE | 2023-03-31 10:38 | Dialysis Progress Note ---
Date of Service March 31, 2023 Assessment & Plan Admission and Anticipated Discharge Date Admission Date: March 27, 2023 Subjective Assessment & Plan (1) ESRD (end stage renal disease) on dialysis: Has CVC and a maturing AVF. has colostomy and we dont need to take much fluid off. Currently no fluid overload or Electrolyte issues. No heparin today. hgb is low and we have been giving DONNA despite Dx of Cancer. risk vs benefit. he is also thinking of quitting Dialysis totally but not decided yet. Cancer treatment plan being devised--He might get lower intensity Treatment as per Notes. Will remove about 1 kilo today. (2) S/p left hip fracture: with his prior stroke, fall, fracture and weakness he needs to use walker as cane is not enough for him. worth noting that he clearly needs to use Walker but he does not as he feels using that is as good as dying. I have asked him to use walker many times. I again advised about this. Again advised that Inpt rehab will be better but he wants to go home S---seen during Dialysis. BP was low so UF goal already lowered. CVC fine. Physical Exam Physical Exam: General: Elderly Frail man in no acute distress . mentally very sharp ENMT: External ear and nose normal, oropharynx normal Neck: No JVD Respiratory: Normal respiratory effort, no respiratory distress, lungs clear to auscultation, no crackles and no wheezes Cardiovascular: RRR S1 S2 Chest (Breasts): Right anterior chest wall HD catheter Gastrointestinal (Abdomen): Abdomen is not distended, soft, non-tender to palpation, +colostomy Musculoskeletal: L hip surg. dressings applied Neurologic: Alert and oriented x 3, No focal weakness, sensation grossly intact Results & Data Vital Signs (Past 12 Hours) Vital Signs Temp Pulse Pulse Pulse Resp BP BP 03/31/23 10:00 89 91/59 L 03/31/23 09:30 84 104/56 L 03/31/23 09:11 75 120/61 03/31/23 09:04 36.5 C 81 03/31/23 08:05 75 03/31/23 07:30 36.5 C 76 16 115/69 03/31/23 03:25 36.6 C 76 18 117/67 03/31/23 00:00 86 03/30/23 23:09 36.5 C 76 18 112/61 Pulse Ox O2 Del Method 03/31/23 10:00 03/31/23 09:30 03/31/23 09:11 03/31/23 09:04 03/31/23 08:05 03/31/23 07:30 98 Room Air 03/31/23 03:25 97 Room Air 03/31/23 00:00 03/30/23 23:09 96 Room Air
[2023-03-31] MEDS: HEPARIN SOD 5,000 UNIT/0.5 ML VIAL SQ SCH ×2 (11:52→20:00)
[2023-03-31] MEDS: oxyCODONE HCL IR 5 MG TAB (IMMEDIATE RELEASE) PO PRN (13:33)
[2023-03-31] MEDS: METOPROLOL SUCC 25MG EXT REL TAB PO SCH (14:53)
[2023-03-31] MEDS ORDERED: HYDROmorphone INJ 0.5 MG/0.5 ML SYR IV PRN (15:38)
[2023-03-31] MEDS: ACETAMINOPHEN 1,000 MG/100 ML VIAL IV SCH ×2 (16:02→23:38)
--- NOTE | 2023-03-31 16:13 | Hospitalist Progress Note ---
Date of Service March 31, 2023 Assessment & Plan (1) Fall: (2) Closed hip fracture: Plan: per admitting service: This is a 77yo M with a PMH of ESRD on HD, Mobitz type 1 block, DM II, history of stroke with residual L sided weakness, history of esophageal cancer with some dysphagia, h/o bowel obstruction requiring ex lap and colostomy placement in September 2022, h/o grade II diastolic dysfunction on May 2022 echo and other medical problems listed below who presents after a fall at home. Femur XR with intertrochanteric fracture of the femur with associated soft tissue swelling. Comfortable after dose of IV morphine in ED. Will continue with scheduled tylenol, lidocain patch and PRN oxycodone for severe pain [facility] consulted given previous R hip repair by Dr. Marques Anesthesia consulted, pre-op abx given per hip fracture protocol Pt is now s/p L hip ORIF Per orthopedics - Assessment doing well status post ORIF of four-part intertrochanteric fracture with trochanteric femoral nail. Discussed with hospitalist affiliate marketing manager covering the case regarding his need for esophageal follow- up with radiation oncology. Also advised her to extend antibiotic coverage regarding the wound based on the fact that there is close proximity to his stoma bag. Additionally the DVT PE prophylaxis per medicine. Can initiate that starting 24 hours postop so anytime after 11:00 tomorrow morning. Activity level can be bed to chair as tolerated immediately and weightbearing as tolerated with walker immediately. Started ceftriaxone and flagyl, plan to cont. for 48 hrs and will closely deep tor. Also discussed w/ RN to pay close attention to colostomy so that we prevent any contamination of surgical area. 03/29 stable overall continue Ceftri + Flagyl continue pain management PT/OT start Heparin SC for DVT prophylaxis 03/30 Remains stable Continue ceftriaxone plus Flagyl Continue pain control, PT/OT 03/31 IV Ofirmev q8h for pain control IV Dilaudid 0.5mg q12h PRN for severe pain Heparin SC for DVT prophylaxis continue PT/OT (3) Mobitz type 1 second degree AV block: Plan: Patient has seen Dr. Amezquita and Dr. Lanza in the past for borderline tachy bebo syndrome and had his Lopressor dose decreased to 12.5mg daily without any further issues Denies any palpitations or CP Cardiology consulted for pre-op eval - Dr. Perez feels patient is stable from cardiac perspective w/o s/sx of unstable angina, worsening arrhythmia or unstable CHF. Okay to proceed with estimated low risk of perioperative cardiac complication no cardiac symptoms HR 80s (4) Stroke: Plan: R MCA CVA in 2022 with some L sided residual weakness Continue atorvastatin (5) Type 2 diabetes, diet controlled: Plan: Diet controlled, most recent a1c 4.9 in 01/26 Continue diabetic diet (6) ESRD (end stage renal disease) on dialysis: Plan: HD MWF, dialyzed yesterday morning, has a RIJ tunneled catheter Plan to continue Renvela, torsemide following OR Nephrology consulted for HD mgmt during admission (7) HTN (hypertension): Plan: Normotensive. Continue Toprol (8) HLD (hyperlipidemia): Plan: Chronic, stable. Continue statin (9) Lumbar stenosis with neurogenic claudication: Plan: Chronic, stable. Continue pain control (will hold home tramadol while receiving oxycodone here). 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 Recently seen by Dr. Roland med onc. Considering role of chemo after rad onc evaluation. Dr. Olivas does not suggest surgical intervention given comobidities Follow up with Dr. Roland in clinic Follow up with radiation oncology - phone number and instructions written in DC instructions Plan plan of care discussed with patient in detail and at length all questions answered he is understanding, agreeable, comfortable with the plan of care Admission and Anticipated Discharge Date Admission Date: March 27, 2023 Subjective ff up for s/p hip surgery, etc seen resting in bed, not in distress having more hip pain today after PT no chest pain, dyspnea, palpitations, dizziness no other new symptoms Review of Systems Review of Systems: all noted and negative except for above Physical Exam Physical Exam: General- oriented x 3, not in distress, speaks in sentences with no effort or accessory muscle use Eyes- anicteric Neck- no JVD Lungs- clear breath sounds bilaterally, no crackles or wheezing Heart- normal rate, regular rhythm; no murmurs Abdomen- normal bowel sounds, nondistended, soft, nontender colostomy bag: brown formed stools Extremities- no pretibial edema, no calf tenderness Hip: dressing in place Neuro- alert, oriented x 3; no gross focal neurologic deficits Skin- warm & dry Results & Data Results & Data Vital Signs (Past 12 Hours) Vital Signs Temp Pulse Pulse Resp BP BP Pulse Ox 03/31/23 15:08 36.3 C L 82 18 126/71 98 03/31/23 14:47 87 03/31/23 12:52 36.5 C 80 116/63 03/31/23 12:30 86 110/63 03/31/23 12:00 89 109/67 03/31/23 11:30 83 111/65 03/31/23 11:00 85 117/61 03/31/23 10:30 95 H 106/69 03/31/23 10:00 89 91/59 L 03/31/23 09:30 84 104/56 L 03/31/23 09:11 75 120/61 03/31/23 09:04 36.5 C 81 03/31/23 08:05 75 03/31/23 07:30 36.5 C 76 16 115/69 98 O2 Del Method 03/31/23 15:08 Room Air 03/31/23 14:47 03/31/23 12:52 03/31/23 12:30 03/31/23 12:00 03/31/23 11:30 03/31/23 11:00 03/31/23 10:30 03/31/23 10:00 03/31/23 09:30 03/31/23 09:11 03/31/23 09:04 03/31/23 08:05 03/31/23 07:30 Room Air all noted and reviewed including below (2) Closed hip fracture Encounter type: initial encounter Laterality: left Qualified Code(s): S72.002A - Fracture of unspecified part of neck of left femur, initial encounter for closed fracture
[2023-03-31] MEDS: SENNOSIDES 8.8 MG/5 ML UDC PO PRN (18:33)
[2023-03-31] MEDS: LATANOPROST 0.005% OP SOLN 2.5 ML BTL OPB SCH (19:58)
[2023-03-31] MEDS: NEPHROCAPS PO SCH (19:59)
[2023-03-31] MEDS ORDERED: GLUCOSE 10 TAB/TUBE PO PRN (23:21)
[2023-03-31] MEDS ORDERED: GLUCOSE 40% GEL 15 GM TUBE PO PRN (23:21)
[2023-03-31] MEDS ORDERED: DEXTROSE 50% 50 ML SYRINGE IV PRN (23:21)
[2023-03-31] MEDS ORDERED: CARBOHYDRATES FOR HYPOGLYCEMIA PO PRN (23:21)
[2023-03-31] MEDS ORDERED: GLUCAGON FOR INJ 1 MG VIAL SQ PRN (23:21)
[2023-03-31] MEDS: INSULIN ASPART PER UNIT CHARGE SC SCH (23:37)
[2023-04-01] MEDS: oxyCODONE HCL IR 5 MG TAB (IMMEDIATE RELEASE) PO PRN ×2 (06:23→11:00)
[2023-04-01] MEDS: ACETAMINOPHEN 1,000 MG/100 ML VIAL IV SCH ×3 (08:21→22:59)
[2023-04-01] MEDS: SENNOSIDES 8.8 MG/5 ML UDC PO PRN (08:22)
[2023-04-01] MEDS: PANTOprazole 40 MG TAB PO SCH (08:23)
[2023-04-01] MEDS: METOPROLOL SUCC 25MG EXT REL TAB PO SCH (08:23)
[2023-04-01] MEDS: HEPARIN SOD 5,000 UNIT/0.5 ML VIAL SQ SCH ×2 (08:23→20:45)
[2023-04-01] MEDS: INSULIN ASPART PER UNIT CHARGE SC SCH (08:24)
[2023-04-01] MEDS: POLYETHYLENE (MIRALAX) 17 GM PACK PO SCH (11:47)
[2023-04-01] MEDS: bisacodyL 5 MG TABEC PO SCH ×2 (11:47→20:45)
--- NOTE | 2023-04-01 17:34 | Hospitalist Progress Note ---
Date of Service April 01, 2023 Assessment & Plan (1) Fall: (2) Closed hip fracture: Plan: per admitting service: This is a 77yo M with a PMH of ESRD on HD, Mobitz type 1 block, DM II, history of stroke with residual L sided weakness, history of esophageal cancer with some dysphagia, h/o bowel obstruction requiring ex lap and colostomy placement in September 2022, h/o grade II diastolic dysfunction on May 2022 echo and other medical problems listed below who presents after a fall at home. Femur XR with intertrochanteric fracture of the femur with associated soft tissue swelling. Comfortable after dose of IV morphine in ED. Will continue with scheduled tylenol, lidocain patch and PRN oxycodone for severe pain [facility] consulted given previous R hip repair by Dr. Marques Anesthesia consulted, pre-op abx given per hip fracture protocol Pt is now s/p L hip ORIF Per orthopedics - Assessment doing well status post ORIF of four-part intertrochanteric fracture with trochanteric femoral nail. Discussed with hospitalist project manager covering the case regarding his need for esophageal follow- up with radiation oncology. Also advised her to extend antibiotic coverage regarding the wound based on the fact that there is close proximity to his stoma bag. Additionally the DVT PE prophylaxis per medicine. Can initiate that starting 24 hours postop so anytime after 11:00 tomorrow morning. Activity level can be bed to chair as tolerated immediately and weightbearing as tolerated with walker immediately. Started ceftriaxone and flagyl, plan to cont. for 48 hrs and will closely deep tor. Also discussed w/ RN to pay close attention to colostomy so that we prevent any contamination of surgical area. 03/29 stable overall continue Ceftri + Flagyl continue pain management PT/OT start Heparin SC for DVT prophylaxis 03/30 Remains stable Continue ceftriaxone plus Flagyl Continue pain control, PT/OT 03/31 IV Ofirmev q8h for pain control IV Dilaudid 0.5mg q12h PRN for severe pain Heparin SC for DVT prophylaxis continue PT/OT 04/01 pain well controlled IV Ofirmev q8h for pain control IV Dilaudid 0.5mg q12h PRN for severe pain Heparin SC for DVT prophylaxis continue PT/OT (3) Mobitz type 1 second degree AV block: Plan: Patient has seen Dr. Amezquita and Dr. Lanza in the past for borderline tachy bebo syndrome and had his Lopressor dose decreased to 12.5mg daily without any further issues Denies any palpitations or CP Cardiology consulted for pre-op eval - Dr. Perez feels patient is stable from cardiac perspective w/o s/sx of unstable angina, worsening arrhythmia or unstable CHF. Okay to proceed with estimated low risk of perioperative cardiac complication no cardiac symptoms HR 80s (4) Stroke: Plan: R MCA CVA in 2022 with some L sided residual weakness Continue atorvastatin (5) Type 2 diabetes, diet controlled: Plan: Diet controlled, most recent a1c 4.9 in 01/26 Continue diabetic diet (6) ESRD (end stage renal disease) on dialysis: Plan: HD MWF, dialyzed yesterday morning, has a RIJ tunneled catheter Plan to continue Renvela, torsemide following OR Nephrology consulted for HD mgmt during admission (7) HTN (hypertension): Plan: Normotensive. Continue Toprol (8) HLD (hyperlipidemia): Plan: Chronic, stable. Continue statin (9) Lumbar stenosis with neurogenic claudication: Plan: Chronic, stable. Continue pain control (will hold home tramadol while receiving oxycodone here). 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 Recently seen by Dr. Roland med onc. Considering role of chemo after rad onc evaluation. Dr. Olivas does not suggest surgical intervention given comobidities Follow up with Dr. Roland in clinic Follow up with radiation oncology - phone number and instructions written in DC instructions Plan plan of care discussed with patient in detail and at length all questions answered he is understanding, agreeable, comfortable with the plan of care Admission and Anticipated Discharge Date Admission Date: March 27, 2023 Subjective ff up for s/p L hip surgery, etc seen resting in bed, comfortable states he feels improved today hip pain improving no abdominal pain colostomy output about the same no other new symptoms Review of Systems Review of Systems: all noted and negative except for above Physical Exam Physical Exam: General- oriented x 3, not in distress, speaks in sentences with no effort or accessory muscle use Eyes- anicteric Neck- no JVD Lungs- clear breath sounds bilaterally, no crackles/wheezing Heart- normal rate, regular rhythm; no murmurs Abdomen- normal bowel sounds, nondistended, soft, nontender colostomy: brown formed stools Extremities- no pretibial edema, no calf tenderness Neuro- alert, oriented x 3; no gross focal neurologic deficits Skin- warm & dry Results & Data Results & Data Vital Signs (Past 12 Hours) Vital Signs Temp Pulse Pulse Resp BP Pulse Ox O2 Del Method 04/01/23 14:27 36.4 C L 77 16 116/68 99 Room Air 04/01/23 10:43 36.6 C 75 15 107/66 95 Room Air 04/01/23 08:00 37.2 C 92 H 16 115/72 95 Room Air all noted and reviewed including below (2) Closed hip fracture Encounter type: initial encounter Laterality: left Qualified Code(s): S72.00 2A - Fracture of unspecified part of neck of left femur, initial encounter for closed fracture
[2023-04-01] MEDS: LATANOPROST 0.005% OP SOLN 2.5 ML BTL OPB SCH (20:44)
[2023-04-01] MEDS: NEPHROCAPS PO SCH (20:45)
[2023-04-02] MEDS: METOPROLOL SUCC 25MG EXT REL TAB PO SCH (08:20)
[2023-04-02] MEDS: POLYETHYLENE (MIRALAX) 17 GM PACK PO SCH (08:20)
[2023-04-02] MEDS: bisacodyL 5 MG TABEC PO SCH ×2 (08:20→21:00)
[2023-04-02] MEDS: PANTOprazole 40 MG TAB PO SCH (08:20)
[2023-04-02] MEDS: HEPARIN SOD 5,000 UNIT/0.5 ML VIAL SQ SCH ×2 (08:21→21:01)
[2023-04-02] MEDS: ACETAMINOPHEN 1,000 MG/100 ML VIAL IV SCH ×2 (08:26→15:33)
[2023-04-02] MEDS: oxyCODONE HCL IR 5 MG TAB (IMMEDIATE RELEASE) PO PRN (09:08)
--- NOTE | 2023-04-02 11:03 | Nephrology Progress Note ---
Date of Service April 02, 2023 Assessment & Plan (1) ESRD (end stage renal disease) on dialysis: Plan: Has CVC and a maturing AVF and had dialysis without issue on Monday. has colostomy and we dont need to take much fluid off. Currently no fluid overload or Electrolyte issues. hgb is low and we have been giving DONNA despite Dx of Cancer. risk vs benefit. Cancer treatment plan being devised- Long discussion with patient today. Patient is conflicted about continuing dialysis given back pain sitting in the dialysis chair. He also has chronic weakness and is frustrated by the lifestyle. He has upcoming radiation for esophageal cancer. On the other hand he is a [employer] and has a and son who want him to be around. We agreed that it is reasonable to try 3 hours of dialysis since patient has severe back pain sitting in the dialysis chair. He should pursue radiation for esophageal cancer since he is not keen about going through major surgery. He will continue physical therapy. I also gave him the option of home hemodialysis although he was not enthusiastic about it. From renal standpoint he can be discharged to rehab. (2) S/p left hip fracture: Plan: with his prior stroke, fall, fracture and weakness he needs to use walker as cane is not enough for him. Admission and Anticipated Discharge Date Admission Date: March 27, 2023 Subjective Seen for ESRD. No shortness of breath but has some hip pain. Patient is conflicted about continuing dialysis given back pain sitting in the dialysis chair. He also has chronic weakness and is frustrated by the lifestyle. He has upcoming radiation for esophageal cancer. On the other hand he is a [employer] and has a and son who want him to be around. Review of Systems Review of Systems: All other systems were reviewed and negative except as noted in HPI Physical Exam Physical Exam: General exam: Appears comfortable, no acute distress HEENT: Pupils are equal and reactive to light Neck: No JVD, neck is supple trachea is midline Respiratory system: Clear breath sounds bilaterally. Gastrointestinal: Abdomen is soft, non distended, non tender, bowel sounds are present CVS: Regular rate and rhythm. No murmurs, rubs or gallops Musculoskeletal: No joint or muscle tenderness Extremities: Non tender, no edema, peripheral pulses are present Neuro: Oriented, no tremors, no focal neurological deficits Skin: No rashes Results & Data Vital Signs (Past 12 Hours) Vital Signs Temp Pulse Resp BP Pulse Ox O2 Del Method 04/02/23 06:45 36.3 C L 78 16 133/72 96 Room Air
--- NOTE | 2023-04-02 11:15 | Hospitalist Progress Note ---
Date of Service April 02, 2023 Assessment & Plan (1) Fall: (2) Closed hip fracture: Plan: per admitting service: This is a 77yo M with a PMH of ESRD on HD, Mobitz type 1 block, DM II, history of stroke with residual L sided weakness, history of esophageal cancer with some dysphagia, h/o bowel obstruction requiring ex lap and colostomy placement in September 2022, h/o grade II diastolic dysfunction on May 2022 echo and other medical problems listed below who presents after a fall at home. Femur XR with intertrochanteric fracture of the femur with associated soft tissue swelling. Comfortable after dose of IV morphine in ED. Will continue with scheduled tylenol, lidocain patch and PRN oxycodone for severe pain [facility] consulted given previous R hip repair by Dr. Marques Anesthesia consulted, pre-op abx given per hip fracture protocol Pt is now s/p L hip ORIF Per orthopedics - Assessment doing well status post ORIF of four-part intertrochanteric fracture with trochanteric femoral nail. Discussed with hospitalist control specialist covering the case regarding his need for esophageal follow- up with radiation oncology. Also advised her to extend antibiotic coverage regarding the wound based on the fact that there is close proximity to his stoma bag. Additionally the DVT PE prophylaxis per medicine. Can initiate that starting 24 hours postop so anytime after 11:00 tomorrow morning. Activity level can be bed to chair as tolerated immediately and weightbearing as tolerated with walker immediately. Started ceftriaxone and flagyl, plan to cont. for 48 hrs and will closely deep tor. Also discussed w/ RN to pay close attention to colostomy so that we prevent any contamination of surgical area. 03/29 stable overall continue Ceftri + Flagyl continue pain management PT/OT start Heparin SC for DVT prophylaxis 03/30 Remains stable Continue ceftriaxone plus Flagyl Continue pain control, PT/OT 03/31 IV Ofirmev q8h for pain control IV Dilaudid 0.5mg q12h PRN for severe pain Heparin SC for DVT prophylaxis continue PT/OT 04/01 pain well controlled IV Ofirmev q8h for pain control IV Dilaudid 0.5mg q12h PRN for severe pain Heparin SC for DVT prophylaxis continue PT/OT 04/02 Pain well-controlled Continue IV Ofirmev for pain control Continue present medication regimen Heparin subcu for DVT prophylaxis PT OT evaluation Anticipate discharge to home in 1 to 2 days Patient declines acute rehab (3) Mobitz type 1 second degree AV block: Plan: Patient has seen Dr. Amezquita and Dr. Lanza in the past for borderline tachy bebo syndrome and had his Lopressor dose decreased to 12.5mg daily without any further issues Denies any palpitations or CP Cardiology consulted for pre-op eval - Dr. Perez feels patient is stable from cardiac perspective w/o s/sx of unstable angina, worsening arrhythmia or unstable CHF. Okay to proceed with estimated low risk of perioperative cardiac complication no cardiac symptoms HR 80s (4) Stroke: Plan: R MCA CVA in 2022 with some L sided residual weakness Continue atorvastatin (5) Type 2 diabetes, diet controlled: Plan: Diet controlled, most recent a1c 4.9 in 01/26 Continue diabetic diet (6) ESRD (end stage renal disease) on dialysis: Plan: HD MWF, dialyzed yesterday morning, has a RIJ tunneled catheter Nephrology consulted for HD mgmt during admission (7) HTN (hypertension): Plan: Normotensive. Continue Toprol (8) HLD (hyperlipidemia): Plan: Chronic, stable. Continue statin (9) Lumbar stenosis with neurogenic claudication: Plan: Chronic, stable. Continue pain control (will hold home tramadol while receiving oxycodone here). 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 Recently seen by Dr. Roland med onc. Considering role of chemo after rad onc evaluation. Dr. Olivas does not suggest surgical intervention given comobidities Follow up with Dr. Roland in clinic Follow up with radiation oncology - phone number and instructions written in DC instructions Plan plan of care discussed with patient in detail and at length all questions answered he is understanding, agreeable, comfortable with the plan of care Admission and Anticipated Discharge Date Admission Date: March 27, 2023 Subjective Follow-up for left hip surgery, etc. Seen resting in bed, comfortable not in distress States he feels fine overall Left hip pain continues to improve No other new symptom Review of Systems Review of Systems: all noted and negative except for above Physical Exam Physical Exam: General- oriented x 3, not in distress, speaks in sentences with no effort or accessory muscle use Eyes- anicteric Neck- no JVD Lungs- clear breath sounds bilaterally, no crackles/wheezing Heart- normal rate, regular rhythm; no murmurs Abdomen- normal bowel sounds, nondistended, soft, nontender Colostomy: Brown formed stools Extremities- no pretibial edema, no calf tenderness Left hip: Dressing in place, no bleeding or discharge Neuro- alert, oriented x 3; no gross focal neurologic deficits Skin- warm & dry Results & Data Results & Data Vital Signs (Past 12 Hours) Vital Signs Temp Pulse Resp BP Pulse Ox O2 Del Method 04/02/23 06:45 36.3 C L 78 16 133/72 96 Room Air all noted and reviewed including below (2) Closed hip fracture Encounter type: initial encounter Laterality: left Qualified Code(s): S72.002A - Fracture of unspecified part of neck of left femur, initial encounter for closed fracture
[2023-04-02] MEDS: NEPHROCAPS PO SCH (21:00)
[2023-04-02] MEDS: LATANOPROST 0.005% OP SOLN 2.5 ML BTL OPB SCH (21:01)
[2023-04-02] MEDS ORDERED: Nursing to Pharmacy Communication SCH (22:15)
[2023-04-02] MEDS: ACETAMINOPHEN 500 MG TAB PO SCH (23:39)
[2023-04-03] MEDS ORDERED: HYDROmorphone INJ 0.5 MG/0.5 ML SYR IV PRN (01:57)
[2023-04-03 02:17] LABS: Appearance Urine Slightly Cloudy (Clear); Bilirubin Urine Negative (Negative); Blood Urine 2+ (Negative); Color Urine Yellow; Glucose Urine UA Negative (Negative); Ketones Urine Negative (Negative); Leukocyte Esterase Urine 3+ (Negative); Nitrite Urine Negative (Negative); Protein Urine 3+ (Negative); Specific Gravity Urine 1.015 (1.000-1.030); Urobilinogen Urine Negative (Negative); pH Urine 8.5 (4.5-7.5)
[2023-04-03 02:30] LABS: Epithelial Cell Urine 0-5 /lpf (0-5); RBC Urine 0-4 /hpf (0-4); WBC Urine >30 /hpf (0-5)
[2023-04-03 02:31] LABS: Bacteria Urine 1+ (Negative)
[2023-04-03 02:42] LABS: Basophils # (auto) 0.06 K/uL (0.00-0.20); Basophils % (auto) 0.8 %; Eosinophils # (auto) 0.59 K/uL (0.00-0.50); Eosinophils % (auto) 7.4 %; Hematocrit (blood only) 27.4 % (42.0-52.0); Hemoglobin 8.7 g/dl (14.0-18.0); Immature Granulocytes # (auto) 0.07 K/uL (0.01-0.20); Immature Granulocytes % (auto) 0.9 %; Lymphocytes # (auto) 1.38 K/uL (1.20-3.40); Lymphocytes % (auto) 17.3 %; Mean Corpuscular Hemoglobin 31.8 pg (25.0-34.0); Mean Corpuscular Hgb Conc 31.8 g/dL (32.0-36.0); Mean Platelet Volume 9.6 fL (9.4-12.4); Monocytes # (auto) 1.18 K/uL (0.11-0.59); Monocytes % (auto) 14.8 %; Neutrophils # (auto) 4.72 K/uL (1.40-6.50); Neutrophils % (auto) 58.8 %; Platelet Count 306 K/uL (130-400); RDW Coefficient of Variation 15.8 % (11.5-14.5); RDW Standard Deviation 58.3 fL (36.4-46.3); Red Blood Count 2.74 M/uL (4.70-6.10)
--- NOTE | 2023-04-03 03:05 | Communication Note ---
Date of Service: April 03, 2023 Patient noted to increasingly confused as per RN with visual hallucinations. UA WBC esterase. AP Delirium secondary to possible UTI No sepsis for now Urine CS, cefepime
[2023-04-03 03:07] LABS: BUN Creatinine Ratio 12.3 (10-20); Creatinine Clr Calc Pharmacy 9.6 ml/min; Est GFR (African American) 9.8 ml/min; Est GFR (Non-African American) 8.5 ml/min; Potassium 4.9 mmol/L (3.5-5.1)
[2023-04-03] MEDS: CEFEPIME 1,000 MG in SYRINGE 0 ML IV SCH (03:24)
[2023-04-03] MEDS ORDERED: HEPARIN SOD (PORCINE) 1000 UNIT/ML IV ONE (07:00)
[2023-04-03] MEDS ORDERED: EPOETIN ALFA 4,000 UNIT/ML VIAL IV ONE (07:00)
[2023-04-03] MEDS ORDERED: SODIUM CHLORIDE 0.9% 1,000 ML IV PRN (07:00)
[2023-04-03] MEDS: POLYETHYLENE (MIRALAX) 17 GM PACK PO SCH (08:02)
[2023-04-03] MEDS: PANTOprazole 40 MG TAB PO SCH (08:02)
[2023-04-03] MEDS: METOPROLOL SUCC 25MG EXT REL TAB PO SCH (08:03)
[2023-04-03] MEDS: bisacodyL 5 MG TABEC PO SCH ×2 (08:03→20:12)
[2023-04-03] MEDS: HEPARIN SOD 5,000 UNIT/0.5 ML VIAL SQ SCH ×2 (08:03→20:13)
[2023-04-03] MEDS: ACETAMINOPHEN 500 MG TAB PO SCH (08:03)
[2023-04-03] MEDS: oxyCODONE HCL IR 5 MG TAB (IMMEDIATE RELEASE) PO PRN (10:45)
--- NOTE | 2023-04-03 15:03 | Orthopedic Progress Note ---
Date of Service April 03, 2023 Assessment & Plan (1) S/p left hip fracture: Plan: The patient and were educated regarding today's findings. Patient will continue with participation with PT and OT. I am recommending patient have placement for rehabilitation to maintain safety and to build strength when he is medically stable for discharge. Dressing was changed today. Incisions look great no concern for infection. Can monitor dressings and change if soiled. Continue with DVT prophylaxis. We will continue to follow and monitor case management updates during his stay. He will follow up in our office for staple removal. Please do not hesitate to reach out to [facility] orthopedics if any questions or concerns. Present on Admission?: Yes Admission and Anticipated Discharge Date Admission Date: March 27, 2023 Subjective Patient is a 77-year-old male who is status post a left hip ORIF with Dr. Giles on 03/28. He is postop day #6. He was seen bedside this afternoon with his present. He is alert and oriented answering questions appropriately. He states he has pain in his left hip in the groin area. He states it is primarily there when he tries to move the leg. He denies any redness or drainage exactly surrounding the incisions. He reports that he is challenged with physical therapy and has a hard time completing this. He often has to stop doing it because of the pain. He does feel his pain is managed with medication. He quantifies his pain in the left hip is more 3/10 currently.He denies any fever, chills, chest pain or shortness of breath. He denies any calf pain. Review of Systems Review of Systems: Please refer to HPI Physical Exam Physical Exam: General: Frail, elderly male, in no acute distress. Sitting upright in bed alert and oriented. Skin: Warm and dry with fair turgor. Resolving ecchymosis over the knee on the left. No rashes. Postsurgical dressing is in place on the left hip and thigh. It is dry.Negative for any soiling. Dressing was removed. Three incisions are well approximated with alessia. Negative for any erythema, fluctuance. New dressing applied with Xeroform, gauze and Tegaderm. Musculoskeletal: Patient is able to tolerate active assist range of motion to the left hip. He continues to have discomfort with internal and external rotation. He is able to assist with hip flexion with discomfort in the groin. He is able to actively dorsiflex and plantarflex ankle and flex toes without difficulty. He remains unable to perform a straight leg raise without assistance Neurologic: Gross sensation is intact across the left leg by soft touch. Peripheral pulses are 2+. Results & Data Vital Signs (Past 12 Hours) Vital Signs Temp Pulse Pulse Pulse Resp BP BP 04/03/23 12:43 37 C 96 H 17 128/69 04/03/23 12:34 36.7 C 90 133/69 04/03/23 12:33 36.5 C 70 85/57 L 04/03/23 12:30 73 120/71 04/03/23 12:00 97 H 113/69 04/03/23 11:30 94 H 117/69 04/03/23 11:00 92 H 127/72 04/03/23 10:30 74 146/78 H 04/03/23 10:00 91 H 140/72 04/03/23 09:30 84 130/78 04/03/23 09:22 36.8 C 85 131/85 04/03/23 09:18 36.8 C 90 04/03/23 07:05 36.8 C 82 15 145/70 H Pulse Ox O2 Del Method 04/03/23 12:43 97 Room Air 04/03/23 12:34 04/03/23 12:33 04/03/23 12:30 04/03/23 12:00 04/03/23 11:30 04/03/23 11:00 04/03/23 10:30 04/03/23 10:00 04/03/23 09:30 04/03/23 09:22 04/03/23 09:18 04/03/23 07:05 98 Room Air Laboratory Results 04/03/23 04/03/23 04/03/23 Range/Units 02:18 02:04 01:58 WBC 8.00 (4.8-10.8) K/ul RBC 2.74 L (4.70-6.10) M/uL Hgb 8.7 L (14.0-18.0) g/dl Hct 27.4 L (42.0-52.0) % MCV 100.0 (80.0-100.0) fL MCH 31.8 (25.0-34.0) pg MCHC 31.8 L (32.0-36.0) g/dL RDW Std Deviation 58.3 H (36.4-46.3) fL RDW Coeff of [place] 15.8 H (11.5-14.5) % Plt Count 306 (130-400) K/uL MPV 9.6 (9.4-12.4) fL Immature Gran % (Auto) 0.9 % Neut % (Auto) 58.8 % Lymph % (Auto) 17.3 % [place] % (Auto) 14.8 % Eos % (Auto) 7.4 % Baso % (Auto) 0.8 % Neut # (Auto) 4.72 (1.40-6.50) K/uL Lymph # (Auto) 1.38 (1.20-3.40) K/uL [place] # (Auto) 1.18 H (0.11-0.59) K/uL Eos # (Auto) 0.59 H (0.00-0.50) K/uL Baso # (Auto) 0.06 (0.00-0.20) K/uL Immature Gran # (Auto) 0.07 (0.01-0.20) K/uL Sodium 131 L (136-145) mmol/L Potassium 4.9 (3.5-5.1) mmol/L Chloride 96 L (98-107) mmol/L Carbon Dioxide 23 (21-32) mmol/L Anion Gap 12 H (3-11) BUN 73 H (6-23) mg/dl Creatinine 5.93 H* (0.6-1.4) mg/dl Est Cr Clr Drug Dosing 9.6 ml/min Est GFR ( Amer) 9.8 ml/min Est GFR (Non-Af Amer) 8.5 ml/min BUN/Creatinine Ratio 12.3 (10-20) Glucose 120 H (70-99(Fasting)) mg/dl POC Glucose 126 H (70-99) mg/dl Calcium 9.0 (8.6-10.3) mg/dl Urine Color Yellow Urine Appearance Slightly Cloudy (Clear) Urine pH 8.5 H (4.5-7.5) Ur Specific [place] 1.015 (1.000-1.030) Urine Protein 3+ H (Negative) Urine Glucose (UA) Negative (Negative) Urine Ketones Negative (Negative) Urine Blood 2+ H (Negative) Urine Nitrite Negative (Negative) Urine Bilirubin Negative (Negative) Urine Urobilinogen Negative (Negative) Ur Leukocyte Esterase 3+ H (Negative) Urine RBC 0-4 (0-4) /hpf Urine WBC >30 H (0-5) /hpf Ur Epithelial Cells 0-5 (0-5) /lpf Urine Bacteria 1+ H (Negative)
--- NOTE | 2023-04-03 15:53 | Hospitalist Progress Note ---
Date of Service April 03, 2023 Assessment & Plan (1) Fall: (2) Closed hip fracture: Plan: per admitting service: This is a 77yo M with a PMH of ESRD on HD, Mobitz type 1 block, DM II, history of stroke with residual L sided weakness, history of esophageal cancer with some dysphagia, h/o bowel obstruction requiring ex lap and colostomy placement in September 2022, h/o grade II diastolic dysfunction on May 2022 echo and other medical problems listed below who presents after a fall at home. Femur XR with intertrochanteric fracture of the femur with associated soft tissue swelling. Comfortable after dose of IV morphine in ED. Will continue with scheduled tylenol, lidocain patch and PRN oxycodone for severe pain [facility] ortho consulted given previous R hip repair by Dr. Marques Anesthesia consulted, pre-op abx given per hip fracture protocol Pt is now s/p L hip ORIF Per orthopedics - Assessment doing well status post ORIF of four-part intertrochanteric fracture with trochanteric femoral nail. Discussed with hospitalist wafer cleaner covering the case regarding his need for esophageal follow- up with radiation oncology. Also advised her to extend antibiotic coverage regarding the wound based on the fact that there is close proximity to his stoma bag. Additionally the DVT PE prophylaxis per medicine. Can initiate that starting 24 hours postop so anytime after 11:00 tomorrow morning. Activity level can be bed to chair as tolerated immediately and weightbearing as tolerated with walker immediately. Started ceftriaxone and flagyl, plan to cont. for 48 hrs and will closely deep tor. Also discussed w/ RN to pay close attention to colostomy so that we prevent any contamination of surgical area. 03/29 stable overall continue Ceftri + Flagyl continue pain management PT/OT start Heparin SC for DVT prophylaxis 03/30 Remains stable Continue ceftriaxone plus Flagyl Continue pain control, PT/OT 03/31 IV Ofirmev q8h for pain control IV Dilaudid 0.5mg q12h PRN for severe pain Heparin SC for DVT prophylaxis continue PT/OT 04/01 pain well controlled IV Ofirmev q8h for pain control IV Dilaudid 0.5mg q12h PRN for severe pain Heparin SC for DVT prophylaxis continue PT/OT 04/02 Pain well-controlled Continue IV Ofirmev for pain control Continue present medication regimen Heparin subcu for DVT prophylaxis PT OT evaluation Anticipate discharge to home in 1 to 2 days Patient declines acute rehab 04/03 reduce Oxy to 5mg, try to avoid as much as possible continue PT/OT eval Confusion possible delirium reduce/avoid Oxy Urine culture: pending on IV Cefepime until UTI ruled out (3) Mobitz type 1 second degree AV block: Plan: Patient has seen Dr. Amezquita and Dr. Lazna in the past for borderline tachy bebo syndrome and had his Lopressor dose decreased to 12.5mg daily without any further issues Denies any palpitations or CP Cardiology consulted for pre-op eval - Dr. Perez feels patient is stable from cardiac perspective w/o s/sx of unstable angina, worsening arrhythmia or unstable CHF. Okay to proceed with estimated low risk of perioperative cardiac complication no cardiac symptoms HR 80s (4) Stroke: Plan: R MCA CVA in 2022 with some L sided residual weakness Continue atorvastatin (5) Type 2 diabetes, diet controlled: Plan: Diet controlled, most recent a1c 4.9 in 01/26 Continue diabetic diet (6) ESRD (end stage renal disease) on dialysis: Plan: HD MWF, dialyzed yesterday morning, has a RIJ tunneled catheter Nephrology consulted for HD mgmt during admission (7) HTN (hypertension): Plan: Normotensive. Continue Toprol (8) HLD (hyperlipidemia): Plan: Chronic, stable. Continue statin (9) Lumbar stenosis with neurogenic claudication: Plan: Chronic, stable. Continue pain control (will hold home tramadol while receiving oxycodone here). 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 Recently seen by Dr. Roland med onc. Considering role of chemo after rad onc evaluation. Dr. Olivas does not suggest surgical intervention given comobidities Follow up with Dr. Roland in clinic Follow up with radiation oncology - phone number and instructions written in DC instructions Plan plan of care discussed with patient in detail and at length all questions answered he is understanding, agreeable, comfortable with the plan of care Admission and Anticipated Discharge Date Admission Date: March 27, 2023 Subjective ff up for s/p hip surgery, etc events overnight noted seen resting in bed, comfortable patient's at bedside patient seems somewhat confused today, irritable does not remember events overnight still having significant hip pain with movement discussed oxycodone dose at length, patient agreeable to lower dose to 5mg po PRN to prevent confusion denies urinary symptoms Review of Systems Review of Systems: all noted and negative except for above Physical Exam Physical Exam: General- oriented x 2, not in distress, speaks in sentences with no effort or accessory muscle use Eyes- anicteric Neck- no JVD Lungs- clear breath sounds bilaterally, no rales/wheezes Heart- normal rate, regular rhythm; no murmurs Abdomen- normal bowel sounds, nondistended, soft, nontender colostomy: (+) formed brown stools Extremities- no pretibial edema, no calf tenderness dressing in place: no bleeding or discharge no hematoma minimal edema no erythema/warmth Neuro- alert, oriented x 2; no gross focal neurologic deficits Skin- warm & dry Results & Data Results & Data Vital Signs (Past 12 Hours) Vital Signs Temp Pulse Pulse Pulse Resp BP BP 04/03/23 12:43 37 C 96 H 17 128/69 04/03/23 12:34 36.7 C 90 133/69 04/03/23 12:33 36.5 C 70 85/57 L 04/03/23 12:30 73 120/71 04/03/23 12:00 97 H 113/69 04/03/23 11:30 94 H 117/69 04/03/23 11:00 92 H 127/72 04/03/23 10:30 74 146/78 H 04/03/23 10:00 91 H 140/72 04/03/23 09:30 84 130/78 04/03/23 09:22 36.8 C 85 131/85 04/03/23 09:18 36.8 C 90 04/03/23 07:05 36.8 C 82 15 145/70 H Pulse Ox O2 Del Method 04/03/23 12:43 97 Room Air 04/03/23 12:34 04/03/23 12:33 04/03/23 12:30 04/03/23 12:00 04/03/23 11:30 04/03/23 11:00 04/03/23 10:30 04/03/23 10:00 04/03/23 09:30 04/03/23 09:22 04/03/23 09:18 04/03/23 07:05 98 Room Air all noted and reviewed including below (2) Closed hip fracture Encounter type: initial encounter Laterality: left Qualified Code(s): S72.002A - Fracture of unspecified part of neck of left femur, initial encounter for closed fracture
--- NOTE | 2023-04-03 18:14 | Nephrology Progress Note ---
Date of Service April 03, 2023 Assessment & Plan (1) ESRD (end stage renal disease) on dialysis: Plan: Has CVC and a maturing AVF and had dialysis without issue on Monday. has colostomy and we dont need to take much fluid off. Currently no fluid overload or Electrolyte issues. hgb is low and we have been giving DONNA despite Dx of Cancer. risk vs benefit. Cancer treatment plan being devised- Dr Quan his OP accounts receivable representative had extensive d/w pt re goals of care. Patient is conflicted about continuing dialysis given back pain sitting in the dialysis chair. He also has chronic weakness and is frustrated by the lifestyle. He has upcoming radiation for esophageal cancer. On the other hand he is a [employer] and has a and son who want him to be around. We agreed that it is reasonable to try 3 hours of dialysis since patient has severe back pain sitting in the dialysis chair. He should pursue radiation for esophageal cancer since he is not keen about going through major surgery. He will continue physical therapy. I also gave him the option of home hemodialysis although he was not enthusiastic about it. From renal standpoint he can be discharged to rehab. -continue TRSa HHD w/ gentle UF >>some confusion today > not knowing where he is exactly; not remembering tx he had 3 mintures pro (2) S/p left hip fracture: Plan: with his prior stroke, fall, fracture and weakness he needs to use walker as cane is not enough for him. Admission and Anticipated Discharge Date Admission Date: March 27, 2023 Subjective pt w/ significant confusion > tells me he's not had HD today (w/in an hour of returning from tx. no sob, no cough Review of Systems 2 Review of Systems: All systems reviewed & are unremarkable except as noted in Subjective Physical Exam 2 Constitutional: well developed, + thin, + frail appearing and cooperative Eyes: EOM intact bilaterally ENMT: Ears: no external ear abnormality Nose: no external nose abnormality Mouth: + dry oral mucous membranes Neck: no nuchal rigidity Respiratory: normal respiratory effort Auscultation: + diminished lung sounds Gastrointestinal (Abdomen): Inspection/Auscultation: normal bowel sounds P ercussion/Palpation: abdomen soft; abdomen nontender Musculoskeletal: Extremities: strength 5/5 throughout Skin: no rashes, warm and dry Neurologic: diego, fluent speech, no tremor Results & Data Vital Signs (Past 12 Hours) Vital Signs Temp Pulse Pulse Pulse Resp BP BP 04/03/23 12:43 37 C 96 H 17 128/69 04/03/23 12:34 36.7 C 90 133/69 04/03/23 12:33 36.5 C 70 85/57 L 04/03/23 12:30 73 120/71 04/03/23 12:00 97 H 113/69 04/03/23 11:30 94 H 117/69 04/03/23 11:00 92 H 127/72 04/03/23 10:30 74 146/78 H 04/03/23 10:00 91 H 140/72 04/03/23 09:30 84 130/78 04/03/23 09:22 36.8 C 85 131/85 04/03/23 09:18 36.8 C 90 04/03/23 07:05 36.8 C 82 15 145/70 H Pulse Ox O2 Del Method 04/03/23 12:43 97 Room Air 04/03/23 12:34 04/03/23 12:33 04/03/23 12:30 04/03/23 12:00 04/03/23 11:30 04/03/23 11:00 04/03/23 10:30 04/03/23 10:00 04/03/23 09:30 04/03/23 09:22 04/03/23 09:18 04/03/23 07:05 98 Room Air Laboratory Results 04/03/23 02:18 04/03/23 02:18
[2023-04-03] MEDS: NEPHROCAPS PO SCH (20:12)
[2023-04-03] MEDS: LATANOPROST 0.005% OP SOLN 2.5 ML BTL OPB SCH (20:13)
[2023-04-04] MEDS: CEFEPIME 1,000 MG in SYRINGE 0 ML IV SCH (04:20)
[2023-04-04] MEDS: bisacodyL 5 MG TABEC PO SCH ×2 (07:54→19:58)
[2023-04-04] MEDS: METOPROLOL SUCC 25MG EXT REL TAB PO SCH (07:54)
[2023-04-04] MEDS: HEPARIN SOD 5,000 UNIT/0.5 ML VIAL SQ SCH ×2 (07:55→19:58)
[2023-04-04] MEDS: POLYETHYLENE (MIRALAX) 17 GM PACK PO SCH (07:55)
[2023-04-04] MEDS: PANTOprazole 40 MG TAB PO SCH (07:55)
--- NOTE | 2023-04-04 10:34 | Orthopedic Progress Note ---
Date of Service April 04, 2023 Assessment & Plan (1) S/p left hip fracture: Plan: The patient was educated regarding today's findings. Patient was able to participate more during the exam today. Patient will continue with participation with PT and OT.Discussed with PT, Thomas, as well as patient, I am recommending patient have placement for rehabilitation to maintain safety and to build strength when he is medically stable for discharge. Dressing was reinforced and new dressing was applied to distal incisions. Incisions look great no concern for infection. Can monitor dressings and change if soiled. Continue with DVT prophylaxis. We will continue to follow and monitor case management updates during his stay. He will follow up in our office for staple removal. Please do not hesitate to reach out to [facility] orthopedics if any questions or concer ns. Admission and Anticipated Discharge Date Admission Date: March 27, 2023 Subjective Patient is a 77-year-old male who is postoperative patient of Dr. Conley. He is postop day #7 status post a left hip ORIF. He was seen bedside this morning. He just completed physical therapy and the therapist was present. He states he is doing well a bit better today compared to yesterday. He states he is discouraged because he is not coming back as fast as what he wo uld like. He states he does have some pain in the hip and rates 45/10. He denies any fevers or chills redness around the incision chest pain or shortness of breath. The hospitalist did come in whenever I was present as well. Patient has a UTI and is treated currently with antibiotic. He currently has a catheter in place. He denies any fever, chills, Chest pain, or shortness of breath. Review of Systems Review of Systems: Please refer to HPI Physical Exam Physical Exam: General: Frail, elderly male, in no acute distress. Laying in bed alert and oriented. Skin: Warm and dry with fair turgor. Resolving ecchymosis over the knee on the left. No rashes. Dressing is intact over proximal incision.Negative for any soiling. The distal incisions are exposed. Dressing has been removed prior to me seeing pt. The two incisions are well approximated with alessia. Negative for any erythema, drainage or fluctuance. New dressing applied with Xeroform, gauze and Tegaderm. Both dressings were reinforced with tegaderm. Musculoskeletal: Patient is able to tolerate active assist range of motion to the left hip better today. He continues to have discomfort with internal and external rotation. He is able to assist with hip flexion and knee flexion. He is able to actively dorsiflex and plantarflex ankle and flex toes without difficulty. He remains unable to perform a straight leg raise without assistance Neurologic: Gross sensation is intact across the left leg by soft touch. Peripheral pulses are 2+. Results & Data Vital Signs (Past 12 Hours) Vital Signs Temp Pulse Pulse Resp BP Pulse Ox O2 Del Method 04/04/23 07:48 36.6 C 85 16 132/65 95 Room Air 04/04/23 04:29 36.4 C L 72 15 136/73 94 Room Air
--- NOTE | 2023-04-04 12:39 | Hospitalist Progress Note ---
Date of Service April 04, 2023 Assessment & Plan (1) Fall: (2) Closed hip fracture: Plan: per admitting service: This is a 77yo M with a PMH of ESRD on HD, Mobitz type 1 block, DM II, history of stroke with residual L sided weakness, history of esophageal cancer with some dysphagia, h/o bowel obstruction requiring ex lap and colostomy placement in September 2022, h/o grade II diastolic dysfunction on May 2022 echo and other medical problems listed below who presents after a fall at home. Femur XR with intertrochanteric fracture of the femur with associated soft tissue swelling. 03/28/23 status post ORIF of four-part intertrochanteric fracture with trochanteric femoral nail. 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 Amezquita and Dr. Lanza in the past for borderline tachy bebo syndrome and had his Lopressor dose decreased to 12.5mg daily without any further issues Denies any palpitations or CP Cardiology consulted for pre-op eval - Dr. Perez feels patient is stable from cardiac perspective w/o s/sx of unstable angina, worsening arrhythmia or unstable CHF. Okay to proceed with estimated low risk of perioperative cardiac complication no cardiac symptoms HR 80s (4) Stroke: Plan: R MCA CVA in 2022 with some L sided residual weakness Continue atorvastatin (5) Type 2 diabetes, diet controlled: Plan: Diet controlled, most recent a1c 4.9 in 01/26 Continue diabetic diet (6) ESRD (end stage renal disease) on dialysis: Plan: HD MWF, dialyzed yesterday morning, has a RIJ tunneled catheter Nephrology consulted for HD mgmt (7) HTN (hypertension): Plan: Normotensive. Continue Toprol (8) HLD (hyperlipidemia): Plan: Chronic, stable. Continue statin (9) Lumbar stenosis with neurogenic claudication: Plan: Chronic, stable. Continue pain control (will hold home tramadol while receiving oxycodone here). 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 Recently seen by Dr. Roland med onc. Considering role of chemo after rad onc evaluation. Dr. Olivas does not suggest surgical intervention given comobidities Follow up with Dr. Roland in clinic Follow up with radiation oncology - phone number and instructions written in DC instructions Plan plan of care discussed with patient in detail and at length all questions answered he is understanding, agreeable, comfortable with the plan of care Admission and Anticipated Discharge Date Admission Date: March 27, 2023 Subjective ff up for s/p L hip surgery, s/p fall, ESRD etc seen resting in bed, comfortable confusion resolved answers all questions appropriately states he feels ok overall still having some pain on the L hip surgical site frustrated that his strength is not returning as quickly as he anticipated denies abdominal pain quezada cath in place, no issues no fever/chills Review of Systems Review of Systems: all noted and negative except for above Physical Exam Physical Exam: General- oriented x 3, not in distress, speaks in sentences with no effort or accessory muscle use Eyes- anicteric Neck- no JVD Lungs- clear breath sounds bilaterally, no rales/wheezes Heart- normal rate, regular rhythm; no murmurs Abdomen- normal bowel sounds, nondistended, soft, nontender colostomy: bag in place, formed brown stools Extremities- no pretibial edema, no calf tenderness L hip: wound healing well, alessia in place, no bleeding or discharge Neuro- alert, oriented x 3; no gross focal neurologic deficits Skin- warm & dry Results & Data Results & Data Vital Signs (Past 12 Hours) Vital Signs Temp Pulse Pulse Resp BP Pulse Ox O2 Del Method 04/04/23 07:48 36.6 C 85 16 132/65 95 Room Air 04/04/23 04:29 36.4 C L 72 15 136/73 94 Room Air all noted and reviewed including below (2) Closed hip fracture Encounter type: initial encounter Laterality: left Qualified Code(s): S72.002A - Fracture of unspecified part of neck of left femur, initial encounter for closed fracture
[2023-04-04] MEDS: NEPHROCAPS PO SCH (19:58)
[2023-04-04] MEDS: LATANOPROST 0.005% OP SOLN 2.5 ML BTL OPB SCH (19:58)
[2023-04-05] MEDS: CEFEPIME 1,000 MG in SYRINGE 0 ML IV SCH (04:35)
[2023-04-05] MEDS ORDERED: SODIUM CHLORIDE 0.9% 1,000 ML IV PRN (07:49)
[2023-04-05] MEDS: HEPARIN SOD 5,000 UNIT/0.5 ML VIAL SQ SCH ×3 (08:04→20:22)
[2023-04-05] MEDS: PANTOprazole 40 MG TAB PO SCH (08:04)
[2023-04-05] MEDS: METOPROLOL SUCC 25MG EXT REL TAB PO SCH (08:05)
[2023-04-05] MEDS: bisacodyL 5 MG TABEC PO SCH ×2 (08:05→20:22)
[2023-04-05] MEDS: POLYETHYLENE (MIRALAX) 17 GM PACK PO SCH (08:05)
[2023-04-05] MEDS ORDERED: ACETAMINOPHEN 1,000 MG/100 ML VIAL IV STA (08:54)
[2023-04-05 09:55] LABS: Hematocrit (blood only) 25.7 % (42.0-52.0); Hemoglobin 8.1 g/dl (14.0-18.0); Mean Corpuscular Hemoglobin 31.4 pg (25.0-34.0); Mean Corpuscular Hgb Conc 31.5 g/dL (32.0-36.0); Mean Corpuscular Volume 99.6 fL (80.0-100.0); Mean Platelet Volume 9.4 fL (9.4-12.4); Platelet Count 364 K/uL (130-400); RDW Coefficient of Variation 15.6 % (11.5-14.5); RDW Standard Deviation 56.4 fL (36.4-46.3); Red Blood Count 2.58 M/uL (4.70-6.10); White Blood Count 10.38 K/ul (4.8-10.8)
[2023-04-05 10:21] LABS: BUN Creatinine Ratio 17.2 (10-20); Calcium 9.1 mg/dl (8.6-10.3); Creatinine Clr Calc Pharmacy 9.9 ml/min; Est GFR (African American) 10.3 ml/min; Est GFR (Non-African American) 8.9 ml/min; Potassium 4.3 mmol/L (3.5-5.1)
[2023-04-05] MEDS ORDERED: IRON SUCROSE 100 MG in SYRINGE 0 ML IV ONE (10:34)
[2023-04-05] MEDS ORDERED: EPOETIN ALFA 20,000 UNITS in SYRINGE 0 ML IV SCH (10:45)
[2023-04-05] MEDS ORDERED: EPOETIN ALFA 20,000 UNITS/ML VIAL IV ONE (11:00)
[2023-04-05] MEDS: CIPROFLOXACIN / D5W 400 MG/200 ML BAG IV SCH (13:44)
--- NOTE | 2023-04-05 14:47 | Hospitalist Progress Note ---
Date of Service April 05, 2023 Assessment & Plan (1) Fall: (2) Closed hip fracture: (3) Mobitz type 1 second degree AV block: (4) Stroke: (5) Type 2 diabetes, diet controlled: Plan: Diet controlled, most recent a1c 4.9 in 01/26 Continue diabetic diet (6) ESRD (end stage renal disease) on dialysis: (7) HTN (hypertension): (8) HLD (hyperlipidemia): (9) Lumbar stenosis with neurogenic claudication: (10) H/O exploratory laparotomy: (11) Dysphagia: Plan Mr. Cason is a 77yo M with a PMH of ESRD on HD, Mobitz type 1 block, DM II, history of stroke with residual L sided weakness, history of esophageal cancer with some dysphagia, h/o bowel obstruction requiring ex lap and colostomy placement in September 2022, h/o grade II diastolic dysfunction on May 2022 echo and other medical problems listed below who presented on 03/27 after a fall at home. Imaging intertrochanteric fracture of the femur with associated soft tissue swelling. [facility] ortho consulted given previous R hip repair by Dr. Marques Anesthesia consulted, pre-op abx given per hip fracture protocol #Acute toxic metabolic encephalopathy iso hospital delirium, underlying UTI -Reorient as able, avoid benzos, schedule tylenol and use opioids sparringly with point to still control pain as this can exacerbate delirium as well -Delirium precautions -Treat infection as follows #Acute cystitis Febrile 04/03, NGTD on blood cultures, UA + pseudomonas resistant to cefepime Vega removed Start Cipro 400mg q24 for renal dosing EOT 04/12 #Intertrochanteric fracture now s/p L hip ORIF 03/28 Orthopedics following patient -Incsions look stable per 04/04 examination -Will need OP follow up for staple removal PT/OT as tolerated Schedule tylenol Oxy 2.5mg q6h #Lower esophageal adenocarcinoma #Dysphagia PET-CT scan negative for distant metastatic disease. Recently seen by Dr. Roland med onc. Considering role of chemo after rad onc evaluation. Dr. Olivas does not suggest surgical intervention given comobidities Follow up with Dr. Roland in clinic Follow up with radiation oncology - phone number and instructions written in DC instructions #ESRD, CVC and AVF HD MWF, dialyzed yesterday morning, has a RIJ tunneled catheter Holding home continue Renvela, torsemide Nephrology consulted for HD mgmt during admission #Tachybrady syndrome Patient has seen Dr. Amezquita and Dr. Lanza in the past for borderline tachy bebo syndrome and had his Lopressor dose decreased to 12.5mg daily without any further issues Denies any palpitations or CP Cardiology consulted for pre-op eval -felt to be stable to proceed, no cardiac concerns at this time Continue metoprolol 12.5mg XL daily #HTN Normotensive. 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 Continue pain control (will hold home tramadol while receiving oxycodone here). Continue bowel regimen #Colostomy In setting of opioid-induced bowel obstruction in September 2022 requiring ex lap and sigmoid colostomy by Dr Jorge Ostomy output currently at baseline per patient DVT ppx Heparin sq Dispo: discussing Rehab with Admission and Anticipated Discharge Date Admission Date: March 27, 2023 Subjective NAEO Watched patient attempt to participate with rehab with no clear success assessed in room, patient states he is in notable pain and feels like pain not addressed, agreeable to IV tylenol and low dose regimen to help Denies chest pain, palpitations, or SOB Notes he recalls episodic confusion but not clear why it happens Plan for HD today Physical Exam Constitutional: WD/WN, vitals as above appears weak and frail upon standing with PT Respiratory: normal respiratory effort, lungs clear to auscultation Cardiovascular: RRR, no murmur, no edema Gastrointestinal (Abdomen): colostomy site, pink nonfriable mucosa Results & Data Results & Data Vital Signs (Past 12 Hours) Vital Signs Temp Pulse Pulse Pulse Resp BP BP 04/05/23 13:48 36.5 C 85 16 121/68 04/05/23 13:15 36.7 C 90 127/67 04/05/23 13:00 83 121/68 04/05/23 12:30 82 110/64 04/05/23 12:00 84 130/75 04/05/23 11:30 83 112/67 04/05/23 11:00 92 H 108/61 04/05/23 10:30 94 H 100/63 04/05/23 10:00 90 119/65 04/05/23 09:41 90 116/67 04/05/23 09:33 36.6 C 87 04/05/23 07:50 36.7 C 83 16 131/67 Pulse Ox O2 Del Method 04/05/23 13:48 95 Room Air 04/05/23 13:15 04/05/23 13:00 04/05/23 12:30 04/05/23 12:00 04/05/23 11:30 04/05/23 11:00 04/05/23 10:30 04/05/23 10:00 04/05/23 09:41 04/05/23 09:33 04/05/23 07:50 97 Room Air Laboratory Results Short CBC 04/05/23 Range/Units 09:34 WBC 10.38 (4.8-10.8) K/ul Hgb 8.1 L (14.0-18.0) g/dl Hct 25.7 L (42.0-52.0) % Plt Count 364 (130-400) K/uL BMP 04/05/23 09:34 Sodium 134 L Potassium 4.3 Chloride 97 L Carbon Dioxide 23 BUN 98 H Creatinine 5.71 H* Glucose 180 H Calcium 9.1 Medications Administered Home Medications Medication Instructions Recorded Confirmed Last Taken latanoprost 0.005 % eye drops 1 drp OPB HS 03/23/21 03/27/23 01/12/23 21:00 (Xalatan) torsemide 100 mg tablet 100 mg PO QAM 05/26/22 03/27/23 03/27/23 04:00 metoprolol succinate 25 mg 12.5 mg PO QAM 09/03/22 03/27/23 03/27/23 04:00 tablet,extended release 24 hr tramadol 50 mg tablet 50 - 100 mg PO Q6H PRN Pain 09/03/22 03/27/23 01/12/23 16:00 vitamin B complex-vitamin C-folic 1 tab PO QPM 09/05/22 03/27/23 01/12/23 21:00 acid 0.8 mg tablet (Belinda-Moose) sennosides 8.8 mg/5 mL oral syrup 5 ml PO BID PRN Constipation 01/02/23 03/27/23 01/12/23 13:00 (senna) sevelamer carbonate 800 mg tablet 800 mg PO UD 01/02/23 03/27/23 01/12/23 17:00 (Renvela) omeprazole 40 mg capsule,delayed 40 mg PO QAM 03/27/23 03/27/23 Unknown release Active Medications Generic Name Dose Route Start Last Admin Trade Name Freq PRN Reason Stop Dose Admin Bisacodyl 5 mg 04/01/23 11:00 04/05/23 08:05 Bisacodyl 5 Mg Tabec PO 05/01/23 10:59 5 mg BID MITZY Administration Heparin Sodium (Porcine) 5,000 units 03/31/23 09:25 04/05/23 08:09 Heparin Sod 5,000 Unit/0.5 Ml Vial SQ 04/30/23 09:24 Not Given Q12 MITZY Ciprofloxacin 400 mg in 200 mls @ 100 mls/hr 04/05/23 09:00 04/05/23 13:44 Cipro / D5w IV 04/10/23 08:59 100 mls/hr DAILY MITZY Administration Protocol Latanoprost 1 drops 03/27/23 21:00 04/04/23 19:58 Latanoprost 0.005% Op Soln 2.5 Ml Btl OPB 04/26/23 20:59 1 drops HS MITZY Administration Metoprolol Succinate 12.5 mg 03/28/23 09:00 04/05/23 08:05 Metoprolol Succ 25mg Ext Rel Tab PO 04/27/23 08:59 Not Given QAM MITZY Pantoprazole Sodium 40 mg 03/28/23 09:00 04/05/23 08:04 Pantoprazole 40 Mg Tab PO 04/27/23 08:59 40 mg QAM MITZY Administration Polyethylene Glycol 17 gm 04/01/23 11:00 04/05/23 08:05 Polyethylene (Miralax) 17 Gm Pack PO 05/01/23 10:59 17 gm DAILY MITZY Administration Sennosides 8.8 mg 03/27/23 16:36 04/01/23 08:22 Sennosides 8.8 Mg/5 Ml Udc PO 04/26/23 16:35 8.8 mg BID PRN Administration Constipation Vitamin B Complex/Folic Acid 1 cap 03/27/23 21:00 04/04/23 19:58 Nephrocaps PO 04/26/23 20:59 1 cap QPM MITZY Administration (2) Closed hip fracture Encounter type: initial encounter Laterality: left Qualified Code(s): S72.002A - Fracture of unspecified part of neck of left femur, initial encounter for closed fracture
[2023-04-05] MEDS: ACETAMINOPHEN 500 MG TAB PO SCH ×2 (15:07→20:23)
--- NOTE | 2023-04-05 16:46 | Nephrology Progress Note ---
Date of Service April 05, 2023 Assessment & Plan (1) ESRD (end stage renal disease) on dialysis: Plan: Has CVC and a maturing AVF and had dialysis without issue. has colostomy and we dont need to take much fluid off. Currently no fluid overload or Electrolyte issues. hgb is low and we have been giving DONNA despite Dx of Cancer. risk vs benefit. Cancer treatment plan being devised- for chemo and XRT, no surgery Dr Quan his OP leak patcher had extensive d/w pt re goals of care. Patient is conflicted about continuing dialysis given back pain sitting in the dialysis chair. He also has chronic weakness and is frustrated by the lifestyle. He has upcoming radiation for esophageal cancer. On the other hand he is a [employer]ism and has a and son who want him to be around. We agreed that it is reasonable to try 3 hours of dialysis since patient has severe back pain sitting in the dialysis chair. He should pursue radiation for esophageal cancer since he is not keen about going through major surgery. He will continue physical therapy. He was not interested in the option of home hemodialysis. From renal standpoint he can be discharged to rehab. -continue MWF HHD w/ gentle UF -will run pt 3 hrs as he has been running to help w/ back pain; I inadvertently ordered 3.5 hrs for him today and did apologize to him and his for that. -continue epo w/ HD (see above re risk/benefit balance) (2) S/p left hip fracture: Plan: with his prior stroke, fall, fracture and weakness he needs to use walker as cane is not enough for him. Admission and Anticipated Discharge Date Admission Date: March 27, 2023 Subjective tolerated HD well today but asking for shorter tx d/t back pain; no sob, no n/v; cramps improving Review of Systems 2 Review of Systems: All systems reviewed & are unremarkable except as noted in Subjective Physical Exam 2 Constitutional: well developed, + cachectic, + frail appearing and cooperative Eyes: EOM intact bilaterally ENMT: Ears: no external ear abnormality Nose: no external nose abnormality Mouth: + dry oral mucous membranes Neck: no nuchal rigidity Respiratory: normal respiratory effort Auscultation: + diminished lung sounds Cardiovascular: Rate/Rhythm: regular rate and regular rhythm Extremities: + AV fistula; no edema Gastrointestinal (Abdomen): Inspection/Auscultation: normal bowel sounds (LLQ colostomy present) Percussion/Palpation: abdomen soft; abdomen nontender Musculoskeletal: Extremities: strength 5/5 throughout Skin: no rashes, warm and dry Results & Data Vital Signs (Past 12 Hours) Vital Signs Temp Pulse Pulse Pulse Resp BP BP 04/05/23 13:48 36.5 C 85 16 121/68 04/05/23 13:15 36.7 C 90 127/67 04/05/23 13:00 83 121/68 04/05/23 12:30 82 110/64 04/05/23 12:00 84 130/75 04/05/23 11:30 83 112/67 04/05/23 11:00 92 H 108/61 04/05/23 10:30 94 H 100/63 04/05/23 10:00 90 119/65 04/05/23 09:41 90 116/67 04/05/23 09:33 36.6 C 87 04/05/23 07:50 36.7 C 83 16 131/67 Pulse Ox O2 Del Method 04/05/23 13:48 95 Room Air 04/05/23 13:15 04/05/23 13:00 04/05/23 12:30 04/05/23 12:00 04/05/23 11:30 04/05/23 11:00 04/05/23 10:30 04/05/23 10:00 04/05/23 09:41 04/05/23 09:33 04/05/23 07:50 97 Room Air Laboratory Results 04/05/23 09:34 04/05/23 09:34
[2023-04-05] MEDS: LATANOPROST 0.005% OP SOLN 2.5 ML BTL OPB SCH (20:23)
[2023-04-05] MEDS: NEPHROCAPS PO SCH (20:23)
[2023-04-06] MEDS: ACETAMINOPHEN 500 MG TAB PO SCH ×6 (03:56→20:06)
[2023-04-06] MEDS: PANTOprazole 40 MG TAB PO SCH (07:31)
[2023-04-06] MEDS: METOPROLOL SUCC 25MG EXT REL TAB PO SCH (07:32)
[2023-04-06] MEDS: ATORVASTATIN 40 MG TAB PO SCH (07:32)
[2023-04-06] MEDS: CIPROFLOXACIN / D5W 400 MG/200 ML BAG IV SCH (07:32)
[2023-04-06] MEDS: bisacodyL 5 MG TABEC PO SCH ×2 (07:32→20:05)
[2023-04-06] MEDS: POLYETHYLENE (MIRALAX) 17 GM PACK PO SCH (07:33)
[2023-04-06] MEDS: HEPARIN SOD 5,000 UNIT/0.5 ML VIAL SQ SCH ×2 (07:33→20:06)
[2023-04-06 07:44] LABS: Hematocrit (blood only) 26.7 % (42.0-52.0); Hemoglobin 8.3 g/dl (14.0-18.0); Mean Corpuscular Hemoglobin 31.2 pg (25.0-34.0); Mean Corpuscular Hgb Conc 31.1 g/dL (32.0-36.0); Mean Corpuscular Volume 100.4 fL (80.0-100.0); Platelet Count 364 K/uL (130-400); RDW Coefficient of Variation 15.7 % (11.5-14.5); RDW Standard Deviation 57.7 fL (36.4-46.3); Red Blood Count 2.66 M/uL (4.70-6.10); White Blood Count 10.37 K/ul (4.8-10.8)
[2023-04-06 07:45] LABS: Mean Platelet Volume 9.2 fL (9.4-12.4)
[2023-04-06 08:26] LABS: BUN Creatinine Ratio 15.4 (10-20); Calcium 9.3 mg/dl (8.6-10.3); Creatinine Clr Calc Pharmacy 13.1 ml/min; Est GFR (African American) 14.3 ml/min; Est GFR (Non-African American) 12.3 ml/min; Magnesium 2.1 mg/dl (1.7-2.4); Phosphorus 5.2 mg/dl (2.5-4.9); Potassium 4.2 mmol/L (3.5-5.1)
[2023-04-06] MEDS: oxyCODONE HCL IR 5 MG TAB (IMMEDIATE RELEASE) PO PRN (08:51)
--- NOTE | 2023-04-06 10:45 | Orthopedic Progress Note ---
Date of Service April 06, 2023 Assessment & Plan (1) S/p left hip fracture: Plan: The patient was educated regarding today's findings. Conservative care measures were discussed. He is adamant that he is going home. He is planning for discharge tomorrow after dialysis. His dressings are currently clean and dry and do not require changing at this time. I did speak with his therapist, and the patient is still max assist for transfers. The patient states his and nephew can help him when he gets home. He is still not ambulating more than 5 feet. The patient states he will recover better at home and insist that his strength will improve. He was encouraged to stay until his strength is appropriate. Follow-up in the office in about a week for staple removal. Admission and Anticipated Discharge Date Admission Date: March 27, 2023 Subjective This 77-year-old male is seen today in his room. He is 9 days status post left hip ORIF with a troches nail. He states he was feeling very good this morning around 5 AM. His pain increased. His nurse has just given him 1/2 tablet of Percocet. The patient states he is going home tomorrow. He feels he is doing well. He feels he can manage himself at home. He states therapy has been going well. He is refusing to go to a [facility] facility and/or [facility], and is steadfast in that. He is scheduled for dialysis tomorrow. No additional new complaints. Physical Exam Physical Exam: General: Frail, elderly male, in no acute distress. Laying in bed. Alert and oriented. Conversive. Skin: Warm and dry with fair turgor. No rashes. No ecchymosis. Postsurgical dressing is in place on the left thigh. The inner gauze is dry and on saturated. His Tegaderm was not removed. Colostomy bag remains present. Musculoskeletal: The patient has intact motor function of the left ankle and toes. There is still considerable difficulty doing a straight leg raise passive motion of the knee and hip is also limited secondary to discomfort. No significant groin pain with rotation. Neurologic: Gross sensation is intact across the left leg by soft touch. Peripheral pulses are 2+. Results & Data Vital Signs (Past 12 Hours) Vital Signs Temp Pulse Resp BP Pulse Ox O2 Del Method 04/06/23 08:00 Room Air 04/06/23 07:57 36.5 C 86 16 119/67 99 Room Air Laboratory Results CBC obtained this morning shows a white count of 10.37. H&H of 8.3 and 26.7. Platelets 364,000. Sodium 137, potassium 4.2, chloride 100, ion gap of 9. BUN of 67 and creatinine 4.34. These are consistent with values from a week ago.
--- NOTE | 2023-04-06 14:21 | Hospitalist Progress Note ---
Date of Service April 06, 2023 Assessment & Plan (1) Fall: (2) Closed hip fracture: (3) Mobitz type 1 second degree AV block: (4) Stroke: (5) Type 2 diabetes, diet controlled: Plan: Diet controlled, most recent a1c 4.9 in 01/26 Continue diabetic diet (6) ESRD (end stage renal disease) on dialysis: (7) HTN (hypertension): (8) HLD (hyperlipidemia): (9) Lumbar stenosis with neurogenic claudication: (10) H/O exploratory laparotomy: (11) Dysphagia: Plan Mr. Cason is a 77yo M with a PMH of ESRD on HD, Mobitz type 1 block, DM II, history of stroke with residual L sided weakness, history of esophageal cancer with some dysphagia, h/o bowel obstruction requiring ex lap and colostomy placement in September 2022, h/o grade II diastolic dysfunction on May 2022 echo and other medical problems listed below who presented on 03/27 after a fall at home. Imaging intertrochanteric fracture of the femur with associated soft tissue swelling. [facility] ortho consulted given previous R hip repair by Dr. Marques Anesthesia consulted, pre-op abx given per hip fracture protocol Patient's course complicated by encephalopathy iso UTI 2/2 quezada. Patient doing much better after antibiotics; however, still notably weak, recommendations continue to be rehab, however patient is decisional and adamant against any rehab/placement at this time. #Acute toxic metabolic encephalopathy *improved iso hospital delirium, underlying UTI -Reorient as able, avoid benzos, schedule tylenol and use opioids sparringly with point to still control pain as this can exacerbate delirium as well -Delirium precautions -Treat infection as follows #Acute cystitis urianry tract infection 2/2 quezada Febrile 04/03, NGTD on blood cultures, UA + pseudomonas resistant to cefepime Quezada removed Start Cipro 400mg q24 for renal dosing EOT 04/12 #Intertrochanteric fracture now s/p L hip ORIF 03/28 Orthopedics following patient -Incsions look stable per 04/04 examination -Will need OP follow up for staple removal PT/OT as tolerated Schedule tylenol Oxy 2.5mg q6h Ortho to follow up in 1 week for staple removal #Lower esophageal adenocarcinoma #Dysphagia PET-CT scan negative for distant metastatic disease. Recently seen by Dr. Roland med onc. Considering role of chemo after rad onc evaluation. Dr. Olivas does not suggest surgical intervention given comobidities Follow up with Dr. Roland in clinic Follow up with radiation oncology - phone number and instructions written in DC instructions #ESRD, CVC and AVF HD MWF, dialyzed yesterday morning, has a RIJ tunneled catheter Holding home continue Renvela, torsemide Nephrology consulted for HD mgmt during admission #Tachybrady syndrome Patient has seen Dr. Amezquita and Dr. Lanza in the past for borderline tachy bebo syndrome and had his Lopressor dose decreased to 12.5mg daily without any further issues Denies any palpitations or CP Cardiology consulted for pre-op eval -felt to be stable to proceed, no cardiac concerns at this time Continue metoprolol 12.5mg XL daily #HTN Normotensive. 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 Continue pain control (will hold home tramadol while receiving oxycodone here). Continue bowel regimen #Colostomy In setting of opioid-induced bowel obstruction in September 2022 requiring ex lap and sigmoid colostomy by Dr Jorge Ostomy output currently at baseline per patient DVT ppx Heparin sq Dispo: discussing Rehab with ; refusing, planning for home tomorrow with [facility] despite reiterated recommendations for rehab Admission and Anticipated Discharge Date Admission Date: March 27, 2023 Subjective NAEO Patient refuses any rehab discussions at this time, stating "[he] has done this multiple times and always gets better at home." Patient more alert and oriented today. Denies any chest pain, palpitations, SOB Physical Exam Constitutional: WD/WN, vitals as above sitting in bedside chair Respiratory: normal respiratory effort, lungs clear to auscultation Cardiovascular: RRR, no murmur, no edema Gastrointestinal (Abdomen): normal bowel sounds, soft, nontender, no hepatosplenomegaly Results & Data Results & Data Vital Signs (Past 12 Hours) Vital Signs Temp Pulse Resp BP Pulse Ox O2 Del Method 04/06/23 08:00 Room Air 04/06/23 07:57 36.5 C 86 16 119/67 99 Room Air Laboratory Results Short CBC 04/06/23 Range/Units 07:23 WBC 10.37 (4.8-10.8) K/ul Hgb 8.3 L (14.0-18.0) g/dl Hct 26.7 L (42.0-52.0) % Plt Count 364 (130-400) K/uL BMP 04/06/23 07:23 Sodium 137 Potassium 4.2 Chloride 100 Carbon Dioxide 28 BUN 67 H D Creatinine 4.34 H D Glucose 107 H Calcium 9.3 Medications Administered Home Medications Medication Instructions Recorded Confirmed Last Taken latanoprost 0.005 % eye drops 1 drp OPB HS 03/23/21 03/27/23 01/12/23 21:00 (Xalatan) torsemide 100 mg tablet 100 mg PO QAM 05/26/22 03/27/23 03/27/23 04:00 metoprolol succinate 25 mg 12.5 mg PO QAM 09/03/22 03/27/23 03/27/23 04:00 tablet,extended release 24 hr tramadol 50 mg tablet 50 - 100 mg PO Q6H PRN Pain 09/03/22 03/27/23 01/12/23 16:00 vitamin B complex-vitamin C-folic 1 tab PO QPM 09/05/22 03/27/23 01/12/23 21:00 acid 0.8 mg tablet (Belinda-Moose) sennosides 8.8 mg/5 mL oral syrup 5 ml PO BID PRN Constipation 01/02/23 03/27/23 01/12/23 13:00 (senna) sevelamer carbonate 800 mg tablet 800 mg PO UD 01/02/23 03/27/23 01/12/23 17:00 (Renvela) omeprazole 40 mg capsule,delayed 40 mg PO QAM 03/27/23 03/27/23 Unknown release Active Medications Generic Name Dose Route Start Last Admin Trade Name Freq PRN Reason Stop Dose Admin Acetaminophen 500 mg 04/05/23 15:30 04/06/23 12:37 Acetaminophen 500 Mg Tab PO 05/05/23 15:29 500 mg Q4 MITZY Administration Atorvastatin Calcium 40 mg 04/06/23 09:00 04/06/23 07:32 Atorvastatin 40 Mg Tab PO 05/06/23 08:59 40 mg QAM MITZY Administration Bisacodyl 5 mg 04/01/23 11:00 04/06/23 07:32 Bisacodyl 5 Mg Tabec PO 05/01/23 10:59 5 mg BID MITZY Administration Heparin Sodium (Porcine) 5,000 units 03/31/23 09:25 04/06/23 07:33 Heparin Sod 5,000 Unit/0.5 Ml Vial SQ 04/30/23 09:24 5,000 units Q12 MITZY Administration Ciprofloxacin 400 mg in 200 mls @ 100 mls/hr 04/05/23 09:00 04/06/23 08:34 Cipro / D5w IV 04/10/23 08:59 Infused DAILY MITZY Infusion Protocol Latanoprost 1 drops 03/27/23 21:00 04/05/23 20:23 Latanoprost 0.005% Op Soln 2.5 Ml Btl OPB 04/26/23 20:59 1 drops HS MITZY Administration Metoprolol Succinate 12.5 mg 03/28/23 09:00 04/06/23 07:32 Metoprolol Succ 25mg Ext Rel Tab PO 04/27/23 08:59 12.5 mg QAM MITZY Administration Oxycodone HCl 2.5 mg 04/05/23 08:54 04/06/23 08:51 Oxycodone Hcl Ir 5 Mg Tab (Immediate Release) PO 04/19/23 08:53 2.5 mg Q6H PRN Administration Pain Pantoprazole Sodium 40 mg 03/28/23 09:00 04/06/23 07:31 Pantoprazole 40 Mg Tab PO 04/27/23 08:59 40 mg QAM MITZY Administration Polyethylene Glycol 17 gm 04/01/23 11:00 04/06/23 07:33 Polyethylene (Miralax) 17 Gm Pack PO 05/01/23 10:59 17 gm DAILY MITZY Administration Sennosides 8.8 mg 03/27/23 16:36 04/01/23 08:22 Sennosides 8.8 Mg/5 Ml Udc PO 04/26/23 16:35 8.8 mg BID PRN Administration Constipation Vitamin B Complex/Folic Acid 1 cap 03/27/23 21:00 04/05/23 20:23 Nephrocaps PO 04/26/23 20:59 1 cap QPM MITZY Administration (2) Closed hip fracture Encounter type: initial encounter Laterality: left Qualified Code(s): S72.002A - Fracture of unspecified part of neck of left femur, initial encounter for closed fracture
[2023-04-06] MEDS: NEPHROCAPS PO SCH (20:05)
[2023-04-06] MEDS: LATANOPROST 0.005% OP SOLN 2.5 ML BTL OPB SCH (20:07)
[2023-04-07] MEDS: ACETAMINOPHEN 500 MG TAB PO SCH ×6 (00:16→21:14)
[2023-04-07] MEDS: oxyCODONE HCL IR 5 MG TAB (IMMEDIATE RELEASE) PO PRN ×2 (06:11→12:45)
[2023-04-07 07:06] LABS: Hematocrit (blood only) 25.3 % (42.0-52.0); Hemoglobin 8.1 g/dl (14.0-18.0); Mean Corpuscular Hemoglobin 31.3 pg (25.0-34.0); Mean Corpuscular Volume 97.7 fL (80.0-100.0); Mean Platelet Volume 9.4 fL (9.4-12.4); Platelet Count 428 K/uL (130-400); RDW Coefficient of Variation 15.6 % (11.5-14.5); RDW Standard Deviation 55.7 fL (36.4-46.3); Red Blood Count 2.59 M/uL (4.70-6.10); White Blood Count 9.96 K/ul (4.8-10.8)
[2023-04-07] MEDS: METOPROLOL SUCC 25MG EXT REL TAB PO SCH (07:34)
[2023-04-07] MEDS: PANTOprazole 40 MG TAB PO SCH (07:35)
[2023-04-07] MEDS: bisacodyL 5 MG TABEC PO SCH ×2 (07:35→21:13)
[2023-04-07] MEDS: CIPROFLOXACIN / D5W 400 MG/200 ML BAG IV SCH (07:35)
[2023-04-07] MEDS: HEPARIN SOD 5,000 UNIT/0.5 ML VIAL SQ SCH ×2 (07:35→21:14)
[2023-04-07] MEDS: ATORVASTATIN 40 MG TAB PO SCH (07:35)
[2023-04-07] MEDS: POLYETHYLENE (MIRALAX) 17 GM PACK PO SCH (07:36)
[2023-04-07 07:49] LABS: BUN Creatinine Ratio 18.8 (10-20); Calcium 9.3 mg/dl (8.6-10.3); Creatinine Clr Calc Pharmacy 10.7 ml/min; Est GFR (African American) 11.2 ml/min; Est GFR (Non-African American) 9.7 ml/min; Magnesium 2.1 mg/dl (1.7-2.4); Phosphorus 5.3 mg/dl (2.5-4.9); Potassium 4.2 mmol/L (3.5-5.1)
[2023-04-07] MEDS ORDERED: SODIUM CHLORIDE 0.9% 1,000 ML IV PRN (08:10)
[2023-04-07] MEDS ORDERED: EPOETIN ALFA 20,000 UNITS/ML VIAL IV ONE (08:20)
[2023-04-07] MEDS ORDERED: IRON SUCROSE 100 MG in SYRINGE 0 ML IV ONE (08:20)
--- NOTE | 2023-04-07 12:11 | Orthopedic Progress Note ---
Date of Service April 07, 2023 Assessment & Plan (1) S/p left hip fracture: Plan: The patient was educated regarding today's findings. Conservative care measures were discussed. He is adamant that he is going home. Patient state that he will probably need to stay in the hospital for 3 more days. His dressings are currently clean and dry and do not require changing at this time. The patient states his and nephew can help him when he gets home. He is still not ambulating more than 5 feet. The patient states he will recover better at home and insist that his strength will improve. He was encouraged to stay until his strength is appropriate. Follow-up in the office in about a week for staple removal. Admission and Anticipated Discharge Date Admission Date: March 27, 2023 Subjective This 77-year-old male is seen for follow-up of a left hip fracture that was repaired by Dr. Giles earlier this week. Patient states that he did do some light physical therapy yesterday and was able to walk out into the bang and across his room but states that he was tired out considerably. Today he refuses to do any PT. He states that he will probably need to stay a few more days to regain his strength before he can be discharged. Patient is adamant that he wants to go home and not to a rehab facility. I advised him against this. States that his hip pain is well-controlled with the medication he has been given. Currently he denies chest pain, shortness of breath, fever, chills, sweats or numbness or tingling in his left lower extremity. He states he is scheduled to have dialysis later this morning. Review of Systems Review of Systems: All systems reviewed & are unremarkable except as noted in Subjective Physical Exam Physical Exam: Left lower extremity: Patient is only able to perform an active straight leg raise test. He is able to actively dorsi and plantarflex his foot. Passive hip range of motion is limited to about 75 degrees. He experiences a pulling sensation with light passive internal and external hip rotation. His surgical incision sites are covered with dressings that are clean dry and intact and left in place. He currently has an ice pack over the proximalmost site. He is neurovascularly intact. Results & Data Vital Signs (Past 12 Hours) Vital Signs Temp Pulse Pulse Pulse Resp BP BP 04/07/23 11:30 76 105/57 L 04/07/23 11:00 82 105/57 L 04/07/23 10:30 89 122/73 04/07/23 10:00 88 117/66 04/07/23 09:30 75 127/65 04/07/23 09:18 82 129/72 04/07/23 09:11 36.5 C 82 04/07/23 08:00 04/07/23 07:47 36.6 C 78 16 133/64 Pulse Ox O2 Del Method 04/07/23 11:30 04/07/23 11:00 04/07/23 10:30 04/07/23 10:00 04/07/23 09:30 04/07/23 09:18 04/07/23 09:11 04/07/23 08:00 Room Air 04/07/23 07:47 98 Room Air Diagnostic Findings Laboratory Results WBC 9.96 K/ul (4.8-10.8) 04/07/23 06:14 RBC 2.59 M/uL (4.70-6.10) L 04/07/23 06:14 Hgb 8.1 g/dl (14.0-18.0) L 04/07/23 06:14 Hct 25.3 % (42.0-52.0) L 04/07/23 06:14 MCV 97.7 fL (80.0-100.0) 04/07/23 06:14 MCH 31.3 pg (25.0-34.0) 04/07/23 06:14 MCHC 32.0 g/dL (32.0-36.0) 04/07/23 06:14 RDW Std Deviation 55.7 fL (36.4-46.3) H 04/07/23 06:14 RDW Coeff of Bayron 15.6 % (11.5-14.5) H 04/07/23 06:14 Plt Count 428 K/uL (130-400) H 04/07/23 06:14 MPV 9.4 fL (9.4-12.4) 04/07/23 06:14 Immature Gran % (Auto) 0.9 % 04/03/23 02:18 Neut % (Auto) 58.8 % 04/03/23 02:18 Lymph % (Auto) 17.3 % 04/03/23 02:18 Angelina % (Auto) 14.8 % 04/03/23 02:18 Eos % (Auto) 7.4 % 04/03/23 02:18 Baso % (Auto) 0.8 % 04/03/23 02:18 Neut # (Auto) 4.72 K/uL (1.40-6.50) 04/03/23 02:18 Lymph # (Auto) 1.38 K/uL (1.20-3.40) 04/03/23 02:18 Angelina # (Auto) 1.18 K/uL (0.11-0.59) H 04/03/23 02:18 Eos # (Auto) 0.59 K/uL (0.00-0.50) H 04/03/23 02:18 Baso # (Auto) 0.06 K/uL (0.00-0.20) 04/03/23 02:18 Immature Gran # (Auto) 0.07 K/uL (0.01-0.20) 04/03/23 02:18 PT 10.8 Seconds (9.0-12.0) 03/27/23 11:50 INR 1.0 (0.9-1.1) 03/27/23 11:50 Sodium 134 mmol/L (136-145) L 04/07/23 06:14 Potassium 4.2 mmol/L (3.5-5.1) 04/07/23 06:14 Chloride 97 mmol/L (98-107) L 04/07/23 06:14 Carbon Dioxide 24 mmol/L (21-32) 04/07/23 06:14 Anion Gap 13 (3-11) H 04/07/23 06:14 BUN 100 mg/dl (6-23) H D 04/07/23 06:14 Creatinine 5.31 mg/dl (0.6-1.4) H* D 04/07/23 06:14 Est Cr Clr Drug Dosing 10.7 ml/min 04/07/23 06:14 Est GFR ( Amer) 11.2 ml/min 04/07/23 06:14 Est GFR (Non-Af Amer) 9.7 ml/min 04/07/23 06:14 BUN/Creatinine Ratio 18.8 (10-20) 04/07/23 06:14 Glucose 100 mg/dl (70-99(Fasting)) H 04/07/23 06:14 POC Glucose 126 mg/dl (70-99) H 04/03/23 01:58 Calcium 9.3 mg/dl (8.6-10.3) 04/07/23 06:14 Phosphorus 5.3 mg/dl (2.5-4.9) H 04/07/23 06:14 Magnesium 2.1 mg/dl (1.7-2.4) 04/07/23 06:14 Iron 24 mcg/dl (35-175) L 04/05/23 09:34 TIBC 159 mcg/dl (250-450) L 04/05/23 09:34 Unsaturated IBC 135 mcg/dl (155-355) L 04/05/23 09:34 Transferrin % Sat 15 % (20-50) L 04/05/23 09:34 Total Bilirubin 0.4 mg/dl (0.2-1.0) 03/27/23 11:50 AST 31 U/L (13-39) 03/27/23 11:50 ALT 11 U/L (7-52) 03/27/23 11:50 Alkaline Phosphatase 57 U/L (34-104) 03/27/23 11:50 Total Protein 7.5 gm/dl (6.0-8.3) 03/27/23 11:50 Albumin 4.1 gm/dl (3.4-5.0) 03/27/23 11:50 Globulin 3.4 gm/dl (2.5-4.0) 03/27/23 11:50 Albumin/Globulin Ratio 1.2 (0.9-2) 03/27/23 11:50 Urine Color Yellow 04/03/23 02:04 Urine Appearance Slightly Cloudy (Clear) 04/03/23 02:04 Urine pH 8.5 (4.5-7.5) H 04/03/23 02:04 Ur Specific Grandy 1.015 (1.000-1.030) 04/03/23 02:04 Urine Protein 3+ (Negative) H 04/03/23 02:04 Urine Glucose (UA) Negative (Negative) 04/03/23 02:04 Urine Ketones Negative (Negative) 04/03/23 02:04 Urine Blood 2+ (Negative) H 04/03/23 02:04 Urine Nitrite Negative (Negative) 04/03/23 02:04 Urine Bilirubin Negative (Negative) 04/03/23 02:04 Urine Urobilinogen Negative (Negative) 04/03/23 02:04 Ur Leukocyte Esterase 3+ (Negative) H 04/03/23 02:04 Urine RBC 0-4 /hpf (0-4) 04/03/23 02:04 Urine WBC >30 /hpf (0-5) H 04/03/23 02:04 Ur Epithelial Cells 0-5 /lpf (0-5) 04/03/23 02:04 Urine Bacteria 1+ (Negative) H 04/03/23 02:04 Nasal Screen MRSA (PCR) Negative (Negative) 03/27/23 21:00 Blood Type A Negative 03/27/23 14:43 Antibody Screen NEGATIVE 03/27/23 14:43 Impressions Chest X-Ray 03/27/23 00:00 XR chest 1V not portable HISTORY: 77 years-old Male LEFT HIP FAX acute chest trauma COMPARISON: 12/02/2022 TECHNIQUE: AP view of the chest FINDINGS: The patient is rotated towards the left. Cardiac silhouette is enlarged. Pulmonary vascular congestion with interstitial coarsening. Atherosclerosis of the aorta. Right IJ dual-lumen hemodialysis catheter distal tip projection in the right atrium. No pneumothorax. Trace pleural effusion suggested with mild bibasilar densities, likely atelectatic. Degenerative changes of the shoulders and spine. IMPRESSION: 1. Cardiomegaly with pulmonary vascular congestion. 2. Probable trace pleural effusions. 3. No acute posttraumatic abnormality of the chest identified. ACT 112: Negative or not required by law. The above report was generated using voice recognition software. It may contain grammatical, syntax or spelling errors. Electronically signed by: Velasquez Reveles M.D. 03/27/2023 12:43 PM Knee X-Ray 03/27/23 11:45 XR knee LT 1 or 2V routine HISTORY: 77 years-old Male fall acute left knee pain status post fall COMPARISON: Left hip and femur radiographs of same day TECHNIQUE: 2 views of the left knee FINDINGS: Limited study secondary to positioning. Arterial calcifications. Demineralized appearance of the bones. No definite acute fracture or dislocation identified. IMPRESSION: Limited exam secondary to positioning. No acute fracture or dislocation identified on the suboptimal images submitted. ACT 112: Negative or not required by law. The above report was generated using voice recognition software. It may contain grammatical, syntax or spelling errors. Electronically signed by: Velasquez Reveles M.D. 03/27/2023 12:42 PM Femur X-Ray 03/27/23 11:48 XR hip LT min 2V, XR femur LT 1V CLINICAL HISTORY: fall TECHNIQUE: 2 views of the left hip and one view of the left femur were obtained. Comparison: None available at the time of this dictation. FINDINGS: Intratrochanteric fracture of the femur is seen with minimal displacement. Hip joint is probably degenerative in appearance. Soft tissue swelling is seen. IMPRESSION: Intertrochanteric fracture of the femur with associated soft tissue swelling. ACT 112: Negative or not required by law. Electronically signed by: Ren Thompson M.D. 03/27/2023 12:[address] 03/27/23 13:11 CT knee LT wo con HISTORY: 77 years-old Male Fall acute left knee pain status post fall COMPARISON: Left knee radiographs 03/27/2023 TECHNIQUE: Multiple axial CT images of the left knee were obtained without the use of IV contrast. A dose lowering technique was used consistent with the principals of ALARA. FINDINGS: Limited exam secondary to positioning. The mineralized appearance of the bones. Chondrocalcinosis with tricompartmental osteoarthritis, mild to moderate the patellofemoral joint and mild within the medial and lateral compartments. No acute fracture or dislocation identified. Trace joint effusion with suprapatellar synovial calcifications. Arterial calcifications are also noted. 3.4 x 1.8 x 4.0 cm mildly complex Newby's cyst. Tendons and ligaments are not well evaluated by CT technique. IMPRESSION: No acute fracture or dislocation. ACT 112: Negative or not required by law. The above report was generated using voice recognition software. It may contain grammatical, syntax or spelling errors. Electronically signed by: Velasquez Reveles M.D. 03/27/2023 3:24 PM Hip X-Ray 03/28/23 12:00 FL hip LT 2-3V CLINICAL HISTORY: LT HIP ORIFacute fracture of the left hip COMPARISON STUDY: Radiographs 03/27/2023 FLUOROSCOPY TIME: 106.0 seconds FLUOROSCOPY IMAGES: 4 EXPOSURE DOSE: 13.95 mGy FINDINGS: Status post placement of intratrochanteric nail with medullary estela extending the acute intertrochanteric left femoral fracture. There is improved alignment. No dislocation unexpected opaque foreign body. IMPRESSION: Fluoroscopic assistance as above. ACT 112: Negative or not required by law. Electronically signed by: Velasquez Reveles M.D. 03/28/2023 11:19 AM
--- NOTE | 2023-04-07 12:16 | Dialysis Progress Note ---
Date of Service April 07, 2023 Assessment & Plan (1) ESRD (end stage renal disease) on dialysis: Plan: Has CVC and a maturing AVF and had dialysis without issue. has colostomy and we dont need to take much fluid off. Currently no fluid overload or Electrolyte issues. hgb is low and we have been giving DONNA despite Dx of Cancer. risk vs benefit. Cancer treatment plan being devised- for chemo and XRT, no surgery Dr Quan his OP lead handler had extensive d/w pt re goals of care. Patient is conflicted about continuing dialysis given back pain sitting in the dialysis chair. He also has chronic weakness and is frustrated by the lifestyle. He has upcoming radiation for esophageal cancer. On the other hand he is a [employer] and has a and son who want him to be around. We agreed that it is reasonable to try 3 hours of dialysis since patient has severe back pain sitting in the dialysis chair. He should pursue radiation for esophageal cancer since he is not keen about going through major surgery. He will continue physical therapy. He was not interested in the option of home hemodialysis. From renal standpoint he can be discharged to rehab. -continue MWF HHD w/ gentle UF -will run pt 3 hrs as he has been running to help w/ back pain; goal 1.3L UF today as we are going into weekend -continue epo w/ HD (risk/benefit balance) (2) S/p left hip fracture: Plan: with his prior stroke, fall, fracture and weakness he needs to use walker as cane is not enough for him. Admission and Anticipated Discharge Date Admission Date: March 27, 2023 Subjective see on dialysis; having some hip pain and feeling less confident than earlier about d/c home today given this. no sob, no dizzyness/lightheadedness. Review of Systems 2 Review of Systems: All systems reviewed & are unremarkable except as noted in Subjective Physical Exam 2 Constitutional: well developed, + thin, + cachectic, + frail appearing and cooperative Eyes: EOM intact bilaterally ENMT: Ears: no external ear abnormality Nose: no external nose abnormality Mouth: + dry oral mucous membranes Neck: no nuchal rigidity Respiratory: normal respiratory effort Auscultation: + diminished lung sounds Cardiovascular: Rate/Rhythm: regular rate and regular rhythm Extremities: + AV fistula; no edema Gastrointestinal (Abdomen): Inspection/Auscultation: normal bowel sounds (LLQ colostomy present) Percussion/Palpation: abdomen soft; abdomen nontender Musculoskeletal: Extremities: strength 5/5 throughout Skin: no rashes, warm and dry Neurologic: fluent speech, no tremor, diego Results & Data Vital Signs (Past 12 Hours) Vital Signs Temp Pulse Pulse Pulse Resp BP BP 04/07/23 12:00 76 108/57 L 04/07/23 11:30 76 105/57 L 04/07/23 11:00 82 105/57 L 04/07/23 10:30 89 122/73 04/07/23 10:00 88 117/66 04/07/23 09:30 75 127/65 04/07/23 09:18 82 129/72 04/07/23 09:11 36.5 C 82 04/07/23 08:00 04/07/23 07:47 36.6 C 78 16 133/64 Pulse Ox O2 Del Method 04/07/23 12:00 04/07/23 11:30 04/07/23 11:00 04/07/23 10:30 04/07/23 10:00 04/07/23 09:30 04/07/23 09:18 04/07/23 09:11 04/07/23 08:00 Room Air 04/07/23 07:47 98 Room Air Laboratory Results 04/07/23 06:14 04/07/23 06:14
--- NOTE | 2023-04-07 16:34 | Hospitalist Progress Note ---
Date of Service April 07, 2023 Assessment & Plan (1) Fall: (2) Closed hip fracture: (3) Mobitz type 1 second degree AV block: (4) Stroke: (5) Type 2 diabetes, diet controlled: (6) ESRD (end stage renal disease) on dialysis: (7) HTN (hypertension): (8) HLD (hyperlipidemia): (9) Lumbar stenosis with neurogenic claudication: (10) H/O exploratory laparotomy: (11) Dysphagia: Plan Mr. Cason is a 77yo M with a PMH of ESRD on HD, Mobitz type 1 block, DM II, history of stroke with residual L sided weakness, history of esophageal cancer with some dysphagia, h/o bowel obstruction requiring ex lap and colostomy placement in September 2022, h/o grade II diastolic dysfunction on May 2022 echo and other medical problems listed below who presented on 03/27 after a fall at home. Imaging intertrochanteric fracture of the femur with associated soft tissue swelling. [facility] ortho consulted given previous R hip repair by Dr. Marques Anesthesia consulted, pre-op abx given per hip fracture protocol Patient's course complicated by encephalopathy iso UTI 2/2 quezada. Patient doing much better after antibiotics; however, still notably weak, recommendations continue to be rehab, however patient is decisional and adamant against any rehab/placement at this time. Patient initially planned for dispo 04/07, however, weakness/pain limiting factor. will receive PT over course of weekend and feels that "just two more days" will suffice. Discussed the need for rehab and patient refused once more. #Acute toxic metabolic encephalopathy *improved iso hospital delirium, underlying UTI -Reorient as able, avoid benzos, schedule tylenol and use opioids sparingly with point to still control pain as this can exacerbate delirium as well -Delirium precautions -Treat infection as follows #Acute cystitis urianry tract infection 2/2 quezada Febrile 04/03, NGTD on blood cultures, UA + pseudomonas resistant to cefepime Quezada removed Start Cipro 400mg q24 for renal dosing EOT 04/12 #Intertrochanteric fracture now s/p L hip ORIF 03/28 Orthopedics following patient -Incsions look stable per 04/04 examination -Will need OP follow up for staple removal PT/OT as tolerated Schedule tylenol Oxy 2.5mg q6h Ortho to follow up in 1 week for staple removal #Lower esophageal adenocarcinoma #Dysphagia PET-CT scan negative for distant metastatic disease. Recently seen by Dr. Roland med onc. Considering role of chemo after rad onc evaluation. Dr. Olivas does not suggest surgical intervention given comobidities Follow up with Dr. Roland in clinic Follow up with radiation oncology - phone number and instructions written in DC instructions #DMTII Diet controlled, most recent a1c 4.9 in 01/26 Diet liberalized to HD diet #ESRD, CVC and AVF HD MWF, dialyzed yesterday morning, has a RIJ tunneled catheter Holding home continue Renvela, torsemide Nephrology consulted for HD mgmt during admission #Tachybrady syndrome Patient has seen Dr. Amezquita and Dr. Lanza in the past for borderline tachy bebo syndrome and had his Lopressor dose decreased to 12.5mg daily without any further issues Denies any palpitations or CP Cardiology consulted for pre-op eval -felt to be stable to proceed, no cardiac concerns at this time Continue metoprolol 12.5mg XL daily #Acute blood loss anemia 2/2 postoperative losses #Anemia of chronic disease -hgb baseline 10, down to 8 postoperatively, remains stable -Repeat CBC EOD , transfuse less than 7 #HTN Normotensive. 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 Continue pain control (will hold home tramadol while receiving oxycodone here). Continue bowel regimen #Colostomy In setting of opioid-induced bowel obstruction in September 2022 requiring ex lap and sigmoid colostomy by Dr Jorge Ostomy output currently at baseline per patient DVT ppx Heparin sq Dispo: discussing Rehab with ; refusing, planning for 04/10 with Replaced by [facility] despite reiterated recommendations for rehab Admission and Anticipated Discharge Date Admission Date: March 27, 2023 Subjective Patient still declining rehab, working with PT here, still too weak for dispo home Reports feeling well over all and would like to discharge on Monday if strength is better Emphasized the need for intensive therapy and rehab, patient still adamant that he will improve over weekend Physical Exam Constitutional: thin, frail gentleman Respiratory: normal respiratory effort, lungs clear to auscultation Cardiovascular: RRR, no murmur, no edema Gastrointestinal (Abdomen): normal bowel sounds, soft, nontender, no hepatosplenomegaly normal ostomy Results & Data Results & Data Vital Signs (Past 12 Hours) Vital Signs Temp Pulse Pulse Pulse Resp BP BP 04/07/23 14:19 36.5 C 81 17 126/63 04/07/23 12:30 36.4 C L 77 128/61 04/07/23 12:00 76 108/57 L 04/07/23 11:30 76 105/57 L 04/07/23 11:00 82 105/57 L 04/07/23 10:30 89 122/73 04/07/23 10:00 88 117/66 04/07/23 09:30 75 127/65 04/07/23 09:18 82 129/72 04/07/23 09:11 36.5 C 82 04/07/23 08:00 04/07/23 07:47 36.6 C 78 16 133/64 Pulse Ox O2 Del Method 04/07/23 14:19 98 Room Air 04/07/23 12:30 04/07/23 12:00 04/07/23 11:30 04/07/23 11:00 04/07/23 10:30 04/07/23 10:00 04/07/23 09:30 04/07/23 09:18 04/07/23 09:11 04/07/23 08:00 Room Air 04/07/23 07:47 98 Room Air Laboratory Results Short CBC 04/07/23 Range/Units 06:14 WBC 9.96 (4.8-10.8) K/ul Hgb 8.1 L (14.0-18.0) g/dl Hct 25.3 L (42.0-52.0) % Plt Count 428 H (130-400) K/uL BMP 04/07/23 06:14 Sodium 134 L Potassium 4.2 Chloride 97 L Carbon Dioxide 24 BUN 100 H D Creatinine 5.31 H* D Glucose 100 H Calcium 9.3 Medications Administered Home Medications Medication Instructions Recorded Confirmed Last Taken latanoprost 0.005 % eye drops 1 drp OPB HS 03/23/21 03/27/23 01/12/23 21:00 (Xalatan) torsemide 100 mg tablet 100 mg PO QAM 0303/27/23 03/27/23 04:00 metoprolol succinate 25 mg 12.5 mg PO QAM 09/03/22 03/27/23 03/27/23 04:00 tablet,extended release 24 hr tramadol 50 mg tablet 50 - 100 mg PO Q6H PRN Pain 09/03/22 03/27/23 01/12/23 16:00 vitamin B complex-vitamin C-folic 1 tab PO QPM 09/05/22 03/27/23 01/12/23 21:00 acid 0.8 mg tablet (Belinda-Moose) sennosides 8.8 mg/5 mL oral syrup 5 ml PO BID PRN Constipation 01/02/23 03/27/23 01/12/23 13:00 (senna) sevelamer carbonate 800 mg tablet 800 mg PO UD 01/02/23 03/27/23 01/12/23 17:00 (Renvela) omeprazole 40 mg capsule,delayed 40 mg PO QAM 03/27/23 03/27/23 Unknown release Active Medications Generic Name Dose Route Start Last Admin Trade Name Freq PRN Reason Stop Dose Admin Acetaminophen 500 mg 04/05/23 15:30 04/07/23 16:00 Acetaminophen 500 Mg Tab PO 05/05/23 15:29 500 mg Q4 MITZY Administration Atorvastatin Calcium 40 mg 04/06/23 09:00 04/07/23 07:35 Atorvastatin 40 Mg Tab PO 05/06/23 08:59 40 mg QAM MITZY Administration Bisacodyl 5 mg 04/01/23 11:00 04/07/23 07:35 Bisacodyl 5 Mg Tabec PO 05/01/23 10:59 5 mg BID MITZY Administration Heparin Sodium (Porcine) 5,000 units 03/31/23 09:25 04/07/23 07:35 Heparin Sod 5,000 Unit/0.5 Ml Vial SQ 04/30/23 09:24 5,000 units Q12 MITZY Administration Latanoprost 1 drops 03/27/23 21:00 04/06/23 20:07 Latanoprost 0.005% Op Soln 2.5 Ml Btl OPB 04/26/23 20:59 1 drops HS MITZY Administration Metoprolol Succinate 12.5 mg 03/28/23 09:00 04/07/23 07:34 Metoprolol Succ 25mg Ext Rel Tab PO 04/27/23 08:59 12.5 mg QAM MITZY Administration Oxycodone HCl 2.5 mg 04/05/23 08:54 04/07/23 12:45 Oxycodone Hcl Ir 5 Mg Tab (Immediate Release) PO 04/19/23 08:53 2.5 mg Q6H PRN Administration Pain Pantoprazole Sodium 40 mg 03/28/23 09:00 04/07/23 07:35 Pantoprazole 40 Mg Tab PO 04/27/23 08:59 40 mg QAM MITZY Administration Polyethylene Glycol 17 gm 04/01/23 11:00 04/07/23 07:36 Polyethylene (Miralax) 17 Gm Pack PO 05/01/23 10:59 17 gm DAILY MITZY Administration Sennosides 8.8 mg 03/27/23 16:36 04/01/23 08:22 Sennosides 8.8 Mg/5 Ml Udc PO 04/26/23 16:35 8.8 mg BID PRN Administration Constipation Vitamin B Complex/Folic Acid 1 cap 03/27/23 21:00 04/06/23 20:05 Nephrocaps PO 04/26/23 20:59 1 cap QPM MITZY Administration (2) Closed hip fracture Encounter type: initial encounter Laterality: left Qualified Code(s): S72.002A - Fracture of unspecified part of neck of left femur, initial encounter for closed fracture
[2023-04-07] MEDS: NEPHROCAPS PO SCH (21:14)
[2023-04-07] MEDS: SENNOSIDES 8.8 MG/5 ML UDC PO PRN (21:14)
[2023-04-07] MEDS: LATANOPROST 0.005% OP SOLN 2.5 ML BTL OPB SCH (21:15)
[2023-04-08] MEDS: ACETAMINOPHEN 500 MG TAB PO SCH ×3 (01:08→08:04)
[2023-04-08] MEDS: PANTOprazole 40 MG TAB PO SCH (08:04)
[2023-04-08] MEDS: ATORVASTATIN 40 MG TAB PO SCH (08:04)
[2023-04-08] MEDS: bisacodyL 5 MG TABEC PO SCH (08:04)
[2023-04-08] MEDS: METOPROLOL SUCC 25MG EXT REL TAB PO SCH (08:04)
[2023-04-08] MEDS: POLYETHYLENE (MIRALAX) 17 GM PACK PO SCH (08:05)
[2023-04-08] MEDS: HEPARIN SOD 5,000 UNIT/0.5 ML VIAL SQ SCH (08:05)
[2023-04-08] MEDS ORDERED: CIPROFLOXACIN 500 MG TAB PO SCH (09:00)
--- NOTE | 2023-04-08 17:49 | Discharge Summary ---
Discharge Summary Date of Service April 08, 2023 Notes For Next Care Provider Medication Changes From Visit Ciprofloaxin 500mg q24 x 3 more days Admission HPI Per Admitting Provider This is a 77yo M with a PMH of ESRD on HD, Mobitz type 1 block, DM II, history of stroke with residual L sided weakness, history of esophageal cancer with some dysphagia, h/o bowel obstruction requiring ex lap and colostomy placement in September 2022, h/o grade II diastolic dysfunction on May 2022 echo and other medical problems listed below who presents after a fall at home. Was in his basement and tripped over a shoe, falling onto left side. Developed acute pain in area of left hip and thigh after fall. Otherwise denies any acute changes. History of fall in the past with R sided hip fracture s/p surgical repair by Dr. Joshi. Also has history of residual L sided weakness following a stroke and ambulates with a cane at baseline. Denies any F/C, lightheadedness, CP, SOB, N/V, abdominal pain, dysuria, colostomy output at baseline. H/o esophageal cancer with some dysphasia but is comfortable swallowing liquids, soft foods and small pills. Was seen in August by Dr. Lanza for concerns regarding sick sinus syndrome and underwent Ziopatch testing. Does not have a pacemaker. Admission Exam Per Admitting Provider On exam, General: Elderly man in no acute distress Eyes: PERRL, conjunctivae normal, not pale, anicteric sclerae, EOM intact bilaterally ENMT: External ear and nose normal, oropharynx normal Neck: Normal visual inspection, no tracheal deviation, no swelling noted Respiratory: Normal respiratory effort, no respiratory distress, lungs clear to auscultation, no crackles and no wheezes Cardiovascular: RRR S1 S2 Chest (Breasts): Right anterior chest wall HD catheter Gastrointestinal (Abdomen): Abdomen is not distended, soft, non-tender to palpation, no guarding, no palpable hepatosplenomegaly, normal bowel sounds, +colostomy Musculoskeletal: LLE abducted and externally rotated Neurologic: Alert and oriented x 3, No focal weakness, sensation grossly intact Principal Dx & Hospital Course #1 = Principal Diagnosis (1) Fall: (2) Closed hip fracture: (3) Mobitz type 1 second degree AV block: (4) Stroke: (5) Type 2 diabetes, diet controlled: (6) ESRD (end stage renal disease) on dialysis: (7) HTN (hypertension): (8) HLD (hyperlipidemia): (9) Lumbar stenosis with neurogenic claudication: (10) H/O exploratory laparotomy: (11) Dysphagia: Plan Mr. Cason is a 77yo M with a PMH of ESRD on HD, Mobitz type 1 block, DM II, history of stroke with residual L sided weakness, history of esophageal cancer with some dysphagia, h/o bowel obstruction requiring ex lap and colostomy placement in September 2022, h/o grade II diastolic dysfunction on May 2022 echo and other medical problems listed below who presented on 03/27 after a fall at home. Imaging intertrochanteric fracture of the femur with associated soft tissue swelling. [facility] ortho consulted given previous R hip repair by Dr. Marques Anesthesia consulted, pre-op abx given per hip fracture protocol Patient's course complicated by encephalopathy iso UTI 2/2 quezada. Patient doing much better after antibiotics; however, still notably weak, recommendations continue to be rehab, however patient is decisional and adamant against any rehab/placement at this time. Patient initially planned for dispo 04/07, however, weakness/pain limiting factor. will receive PT over course of weekend and feels that "just two more days" will suffice. Discussed the need for rehab and patient refused once more. Plan was to keep patient until Monday per patient request for needing "more time with PT," but decided that today would be best. It was greatly emphasized to and patient that rehab would be the greatest benefit; however, both understood and declined. #Acute toxic metabolic encephalopathy *improved iso hospital delirium, underlying UTI -Reorient as able, avoid benzos, schedule tylenol and use opioids sparingly with point to still control pain as this can exacerbate delirium as well -Delirium precautions -Treat infection as follows #Acute cystitis urianry tract infection 2/2 quezada Febrile 04/03, NGTD on blood cultures, UA + pseudomonas resistant to cefepime Quezada removed Continue Cipro 400mg q24 for renal dosing EOT 04/12 #Intertrochanteric fracture now s/p L hip ORIF 03/28 Orthopedics following patient -Incsions look stable per 04/04 examination -Will need OP follow up for staple removal PT/OT as tolerated Schedule tylenol Oxy 2.5mg q6h Ortho to follow up in 1 week for staple removal #Lower esophageal adenocarcinoma #Dysphagia PET-CT scan negative for distant metastatic disease. Recently seen by Dr. Roland med onc. Considering role of chemo after rad onc evaluation. Dr. Olivas does not suggest surgical intervention given comobidities Follow up with Dr. Roland in clinic Follow up with radiation oncology - phone number and instructions written in DC instructions #DMTII Diet controlled, most recent a1c 4.9 in 01/26 Diet liberalized to HD diet #ESRD, CVC and AVF HD MWF, dialyzed yesterday morning, has a RIJ tunneled catheter Resume home continue Renvela, torsemide Nephrology consulted for HD mgmt during admission #Tachybrady syndrome Patient has seen Dr. Amezquita and Dr. Lanza in the past for borderline tachy bebo syndrome and had his Lopressor dose decreased to 12.5mg daily without any further issues Denies any palpitations or CP Cardiology consulted for pre-op eval -felt to be stable to proceed, no cardiac concerns at this time Continue metoprolol 12.5mg XL daily #Acute blood loss anemia 2/2 postoperative losses #Anemia of chronic disease -hgb baseline 10, down to 8 postoperatively, remains stable #HTN Normotensive. 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 Continue pain control (will hold home tramadol while receiving oxycodone here). Continue bowel regimen #Colostomy In setting of opioid-induced bowel obstruction in September 2022 requiring ex lap and sigmoid colostomy by Dr Jorge Ostomy output currently at baseline per patient On day of discharge, patient eager to go home, reports feeling better than admission. Patient still weak and declining placement. Home with home pt/ot established. Discharge Exam Constitutional WD/WN, vitals as above (frail appearance, coherent AO3 ) Respiratory normal respiratory effort, lungs clear to auscultation Cardiovascular RRR, no murmur, no edema Gastrointestinal (Abdomen) normal bowel sounds, soft, nontender, no hepatosplenomegaly Updated Medication List Medication Instructions Recorded Confirmed Type latanoprost 0.005 % eye drops 1 drp OPB HS 03/23/21 03/27/23 History (Xalatan) torsemide 100 mg tablet 100 mg PO QAM 05/26/22 03/27/23 History metoprolol succinate 25 mg 12.5 mg PO QAM 09/03/22 03/27/23 History tablet,extended release 24 hr vitamin B complex-vitamin C-folic 1 tab PO QPM 09/05/22 03/27/23 History acid 0.8 mg tablet (Belinda-Moose) sennosides 8.8 mg/5 mL oral syrup 5 ml PO BID PRN Constipation 01/02/23 03/27/23 History (senna) sevelamer carbonate 800 mg tablet 800 mg PO UD 01/02/23 03/27/23 History (Renvela) omeprazole 40 mg capsule,delayed 40 mg PO QAM 03/27/23 03/27/23 History release ciprofloxacin HCl 500 mg tablet 500 mg PO DAILY #3 tabs 04/08/23 Rx tramadol 50 mg tablet 50 - 100 mg (1 - 2 x 50 mg) PO Q6H 04/08/23 Rx PRN Pain #15 tabs Hospital Stay Data Consultations 03/27/23 12:57 Consult Orthopedic Surgery Routine 03/27/23 13:27 ED Decision to Admit Stat 03/27/23 13:47 Consult Cardiology Routine 03/27/23 13:48 Consult Nephrology Routine 03/27/23 16:36 Consult Anesthesiology Routine Procedures Performed Operation Date: 03/28/23 07:00 Actual Procedures p Left Hip Open Reduction Internal Fixation(Left) - Jaleel Giles MD Diagnostic Imagining Performed 03/27/23 13:11 CT knee LT wo con Stat 03/28/23 12:00 FL hip LT 2-3V Routine Pending Results Patient Have Any Pending Studies at Discharge: No Discharge Instructions Given to Patient (Per Discharging Provider) You were admitted for hip fracture which underwent fixation on 03/28. Your postoperative course was complicated by weakness and urinary infection. You requested to go home with home health, though it is still recommended that rehab would be of benefit. Please participate with PT as much as able and continue your exercises. The final doses of your antibiotic where sent to [place]: -Ciprofloxacin 500mg, 1 tablet in the morning with breakfast. 3 doses, next dose 04/09 Please use tylenol 650mg every 6 hours as needed for pain Please use tramadol 50mg only for severe pain. Please take extreme caution to avoid falls or participate in activities that contribute significant risk to falls. Avoid intensive activities after dialysis as you correlate the number of falls to post-dialysis. Home Health Attestation I certify that this patient is under my care and that I, or a physicians news production assistant working with me, had a face to-face encounter that meets the home health [id number] encounter requirements with this patient. The encounter with the patient was in whole, or in part, for the following medical condition, which is the primary reason for home health care (list medical condition): hip fracture I certify that, based on my findings, the following services are medically necessary home health services: My clinical findings support the need for the above services because: Home Safety Assessment Monitor Incision for Infection OT Assess ADL Status and Restore Function w ADLs PT Assessment for Endurance / Balance / Strength PT Eval for Safety and Mobility PT Eval for Safety, Gait Training, Assistive Devices PT Gait and Balance Training, Strengthening and Safety Further, I certify that my clinical findings support that this patient is homebound (i.e. absences from home require considerable and taxing effort and are for medical reasons or latter-day services or infrequently or of short duration when for other reasons) because: Transportation Assistance/Unable to Leave Home Unassisted Certification for Home Health Services: Based on the above findings, I certify that this patient is confined to the home and needs intermittent mcfp care, physical therapy and/or speech therapy or continues to need occupational therapy. The patient is under my care, and I have initiated the establishment of the plan of care. This patient will be followed by a physician who will periodically review the plan of care. Total Time Total Time Spent Total Time Spent (In Minutes): 45
== END 2023-04-08 12:50 | disposition home health service (06) | DRG 480 ==
LOC: ED 11:38 → EDINP 14:22 → SUATTDRO 14:22 → EDINP 03-28 08:42 → 2N 03-28 13:20 → 3E 04-01 10:44

== ENCOUNTER 2023-07-20 14:13 | Inpatient (IN) ==
--- NOTE | 2023-07-20 14:19 | ED Triage Note ---
Date of Service July 20, 2023 Provider in Triage Author: Nicole Francis History of Present Illness This patient was briefly evaluated while in triage. An abbreviated physical exam was performed. This patient is a 78-year-old Male who presents to the ED for evaluation hx of colostomy-developed mid abdominal pain this morning finished chemotherapy for esophageal cancer about a week ago decreased colostomy output but no change in consistency or color on dialysis M/W/F nausea, nearly vomited Physical Exam GENERAL: NAD CARDIOVASCULAR: RRR RESPIRATORY: CTA ABDOMEN: BS x 4, hypoactive, diffusely TTP, nondistended. Initial orders for labs and / or imaging were placed and patient was placed in the waiting area until a bed is available. Please see further documentation for the full ED course.
[2023-07-20 15:04] LABS: Hematocrit (blood only) 45.3 % (42.0-52.0); Hemoglobin 14.4 g/dl (14.0-18.0); Mean Corpuscular Hemoglobin 33.7 pg (25.0-34.0); Mean Corpuscular Hgb Conc 31.8 g/dL (32.0-36.0); Mean Corpuscular Volume 106.1 fL (80.0-100.0); Mean Platelet Volume 9.4 fL (9.4-12.4); Platelet Count 351 K/uL (130-400); RDW Coefficient of Variation 19.3 % (11.5-14.5); RDW Standard Deviation 75.9 fL (36.4-46.3); Red Blood Count 4.27 M/uL (4.70-6.10); White Blood Count 11.45 K/ul (4.8-10.8)
[2023-07-20 15:13] LABS: Anion Gap 18 (3-11); BUN Creatinine Ratio 12.1 (10-20); Blood Urea Nitrogen 48 mg/dl (6-23); Carbon Dioxide 25 mmol/L (21-32); Chloride 92 mmol/L (98-107); Est GFR (African American) 15.8 ml/min; Est GFR (Non-African American) 13.6 ml/min; Glucose 226 mg/dl (70-99(Fasting)); Potassium 4.7 mmol/L (3.5-5.1); Sodium 135 mmol/L (136-145)
[2023-07-20 15:22] LABS: Alanine Aminotransferase 11 U/L (7-52); Albumin Level 4.1 gm/dl (3.4-5.0); Alkaline Phosphatase 118 U/L (34-104); Aspartate Aminotransferase 23 U/L (13-39); Basophils # (auto) 0.05 K/uL (0.00-0.20); Basophils % (auto) 0.4 %; Bilirubin,Total 0.4 mg/dl (0.2-1.0); Eosinophils # (auto) 0.02 K/uL (0.00-0.50); Eosinophils % (auto) 0.2 %; Globulin 4.3 gm/dl (2.5-4.0); Immature Granulocytes # (auto) 0.08 K/uL (0.01-0.20); Immature Granulocytes % (auto) 0.7 %; Lipase < 3 U/L (11-82); Lymphocytes # (auto) 0.22 K/uL (1.20-3.40); Lymphocytes % (auto) 1.9 %; Monocytes # (auto) 0.46 K/uL (0.11-0.59); Neutrophils # (auto) 10.62 K/uL (1.40-6.50); Neutrophils % (auto) 92.8 %; Polychromasia 1+; Total Protein 8.4 gm/dl (6.0-8.3)
--- NOTE | 2023-07-20 15:43 | Emergency Department Note ---
Impression & Plan SBO (small bowel obstruction), Elevated lactic acid level ED Provider Note HISTORY OF PRESENT ILLNESS: Patient is a 78-year-old male presenting with abdominal pain. Patient reports lower abdominal pain starting this morning. He states that it is very today progressed his pain became more persistent and noticeable. He describes it as a burning sensation. He reports that he has a colostomy in place and his ostomy has been having his normal output. He states that he is currently on chemo and radiation therapy for esophageal cancer. He and his family member report that he last finished his chemo and radiation about 3 weeks ago. He just had a PET scan performed 4 days ago. He reports some associated nausea, but denies any vomiting. He does receive hemodialysis and last received his full session yesterday. He denies any notable fevers at home. Denies any chest pain or shortness of breath. Patient does report he has been taking more of his prescribed pain medication at home. Reports he has a colostomy in place secondary to a small bowel obstruction secondary to his opioid use back in 2022. ROS: as above PHYSICAL EXAM: Constitutional: Patient appears in no acute distress. HENT: Head: Normocephalic and atraumatic. Eyes: EOMI, PERRL Mouth/Throat: Mucous membranes moist. Neck: Trachea midline. Neck supple. Cardiovascular: RRR, No murmurs, rubs or gallops. Intact distal pulses. Pulmonary/Chest: No respiratory distress. Breath sounds clear and equal bilaterally. No wheezes or rales. Abdominal: Abdomen soft, no rebound or guarding. Generalized TTP. Ostomy in place. Musculoskeletal: No edema, tenderness or deformity noted. Skin: Warm and dry. No rash, erythema, pallor or cyanosis Psychiatric: Appropriate mood and affect for situation. Neurological: Alert and keenly responsive. CN II-XII grossly intact, moving all extremities equally and fully. MDM: - Vitals signs showed hypertension - History obtained via patient. History as above. - Chronic conditions affecting care: HTN; HLD; ESRD (on MWF HD); CVA; esophageal carcinoma - Differential diagnoses include, but are not limited to: viral syndrome; bowel obstruction; colitis; dehydration; electrolyte abnormality; UTI - Order placed for continuous cardiac monitoring. At this time, monitor showed rate of 86 bpm with normal sinus rhythm, per my interpretation. - External medical records reviewed. Operative report dated 09/09/2022 was reviewed. Patient had an exploratory laparotomy at that time for a bowel obstruction and he had a sigmoid colostomy placed. - Laboratory workup interpreted by myself showed leukocytosis (WBC 11.45); slight hyponatremia (Na 135); ESRD (Cr 3.98); negative lipase; elevated procalcitonin (1.17) - CT abdomen/pelvis wo contrast showed "high-grade small bowel obstruction, likely secondary to an internal hernia" per radiology. Noted to have "reactive small bowel wall thickening with trace ascites and interloop edema" - Patient given 1L NS, 0.5 mg IV dilaudid and 4 mg IV zofran for symptomatic management. - Lactate noted to be elevated at 5.1 - Message was sent to surgeon environmental health manager, Dr. Rodriguez, at 16:45. She was in the OR and responded to discuss case at 17:10. She agrees with fluid hydration and admission to medicine. She is going to review images and assess patient. - Patient still complaining of pain. Given 50 mcg IV fentanyl. - Discussion was had with returned case inspector about patient's case and need for admission - Hospitalist consulted for admission - Patient admitted to [facility] for further evaluation and management. 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 Stroke (Chronic) Acute left-sided weakness (Acute) Left sided numbness (Acute) Acute right MCA stroke Cerebral infarction due to occlusion of right middle cerebral artery Sepsis associated hypotension (Acute) Sepsis (Acute) Stercoral colitis (Acute) Hypokalemia Hyponatremia Bowel obstruction Status post exploratory laparotomy Colostomy in place ESRD on hemodialysis Peritonitis Displaced fracture of right femoral neck Fall Closed fracture of right hip (Acute) Prediabetes Dysphagia Hyperkalemia Increased anion gap metabolic acidosis Oropharyngeal dysphagia S/P hip hemiarthroplasty rt hip H/O exploratory laparotomy (09/09/22) Exploratory Laparotomy for Bowel Obstruction - Kishor Jorge MD, FACS 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) Stercoral colitis hx ESRD (end stage renal disease) on dialysis (Acute) goes to dialysis 3x per week (M/W/)>[facility] [place] [facility] present right upper chest Anemia of renal disease (Chronic) Glaucoma Gout (Chronic) HLD (hyperlipidemia) (Chronic) HTN (hypertension) (Chronic) Lumbar stenosis with neurogenic claudication (Chronic) Spondylolisthesis of lumbar region (Acute) Medical History (Updated 07/20/23 @ 17:12 by Rani Pryor MD) Preoperative cardiovascular examination Open-angle glaucoma History of stroke 05/25/22, f/u [facility] GERD (gastroesophageal reflux disease) Prostate cancer 2012, sx tx only History of nephrolithiasis Surgical History (Updated 05/09/23 @ 00:07 by Tirso Fish) History of hip surgery (03/28/23) Left Hip Open Reduction Internal Fixation(Left) - Jaleel Giles MD Hx of local excision of skin lesion melanoma removed on face History of esophagogastroduodenoscopy (EGD) Hx of lithotripsy Hx of cataract extraction bilat. Hx of prostatectomy robotic assisted retropubic 2012 Hx of colonoscopy History of lumbar fusion Family History (Updated 04/25/23 @ 09:10 by Charlotte Odell, HERMINIO) Mother , at 88 Stroke Father , in 60s Heart disease Brother Pancreatic cancer Brother No problems noted. Sister No problems noted. Sister No problems noted. Sister No problems noted. Sister No problems noted. Sister No problems noted. Sister No problems noted. Son No problems noted. 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 How many Children do You have: 1 Feels Safe at Home: Yes Childhood Exposure to Second-Hand Smoke: No Diet: regular Diet Comment: high protein, low potassium during the past year weight has: decreased > 10 lbs Dental Care, Regularly: No Assistive Devices: None Allergies Allergies Allergy/AdvReac Type Severity Reaction Status Date / Time No Known Allergies Allergy Verified 06/15/23 09:37 Home Meds Home Medications Medication Instructions Recorded Confirmed latanoprost 0.005 % eye drops 1 drp OPB HS 03/23/21 06/15/23 (Xalatan) torsemide 100 mg tablet 100 mg PO QAM 05/26/22 06/15/23 metoprolol succinate 25 mg 12.5 mg PO QAM 09/03/22 06/15/23 tablet,extended release 24 hr vitamin B complex-vitamin C-folic 1 tab PO QPM 09/05/22 06/15/23 acid 0.8 mg tablet (Belinda-Moose) sennosides 8.8 mg/5 mL oral syrup 5 ml PO BID PRN Constipation 01/02/23 06/15/23 (senna) sevelamer carbonate 800 mg tablet 800 mg PO UD 01/02/23 06/15/23 (Renvela) omeprazole 40 mg capsule,delayed 40 mg PO QAM 03/27/23 06/15/23 release oxycodone 5 mg tablet 7.5 mg PO Q6H PRN 04/25/23 06/15/23 tramadol 50 mg tablet 50 - 100 mg PO Q6H PRN Pain 05/29/23 06/15/23 Previous Rx's Medication Instructions Recorded Magic Mouthwash 300 mL mouthwash 10 ml mucous membrane ACHS 05/22/23 Dysphagia #300 mL Results & Data (ED) Vital Signs Vital Signs - 24 hr 07/20/23 14:15 07/20/23 14:45 07/20/23 14:50 Temperature 36.8 C Temperature Source Temporal Artery Scan Pulse Rate 74 83 82 Pulse Rate [Apical] Pulse Rate from SpO2 Sensor Pulse Rhythm [Apical] Respiratory Rate 18 16 Respiratory Effort / Characteristics Non-Labored Spontaneous Respiratory Depth Normal Respiratory Pattern Blood Pressure 134/93 Blood Pressure [Right Arm] Blood Pressure Mean 106 Blood Pressure Mean [Right Arm] Blood Pressure Position Sitting Pulse Oximetry 96 Oxygen Delivery Method Room Air Sepsis Recent Fever Within 48 Hours No Sepsis New/Unexplained Change in Mental Status No Sepsis Action Taken by Nursing No Action Required 07/20/23 15:00 07/20/23 15:07 07/20/23 15:07 Temperature Temperature Source Pulse Rate 79 92 H Pulse Rate [Apical] 82 Pulse Rate from SpO2 Sensor Pulse Rhythm [Apical] Regular Respiratory Rate 19 20 17 Respiratory Effort / Characteristics Non-Labored Spontaneous Respiratory Depth Normal Respiratory Pattern Regular Blood Pressure Blood Pressure [Right Arm] 160/90 H Blood Pressure Mean Blood Pressure Mean [Right Arm] 113 Blood Pressure Position Pulse Oximetry 95 97 Oxygen Delivery Method Room Air Room Air Sepsis Recent Fever Within 48 Hours Sepsis New/Unexplained Change in Mental Status Sepsis Action Taken by Nursing 07/20/23 15:07 07/20/23 15:07 07/20/23 15:10 Temperature Temperature Source Pulse Rate 79 82 Pulse Rate [Apical] Pulse Rate from SpO2 Sensor 80 83 Pulse Rhythm [Apical] Respiratory Rate 19 23 Respiratory Effort / Characteristics Respiratory Depth Respiratory Pattern Blood Pressure 160/96 H Blood Pressure [Right Arm] Blood Pressure Mean 109 Blood Pressure Mean [Right Arm] Blood Pressure Position Pulse Oximetry 96 94 Oxygen Delivery Method Sepsis Recent Fever Within 48 Hours Sepsis New/Unexplained Change in Mental Status Sepsis Action Taken by Nursing 07/20/23 15:20 07/20/23 15:39 07/20/23 15:40 Temperature Temperature Source Pulse Rate 85 89 90 Pulse Rate [Apical] Pulse Rate from SpO2 Sensor 81 89 Pulse Rhythm [Apical] Respiratory Rate 21 24 14 Respiratory Effort / Characteristics Respiratory Depth Respiratory Pattern Blood Pressure Blood Pressure [Right Arm] Blood Pressure Mean Blood Pressure Mean [Right Arm] Blood Pressure Position Pulse Oximetry 95 96 Oxygen Delivery Method Sepsis Recent Fever Within 48 Hours Sepsis New/Unexplained Change in Mental Status Sepsis Action Taken by Nursing 07/20/23 15:50 07/20/23 16:00 07/20/23 16:02 Temperature Temperature Source Pulse Rate 94 H 91 H Pulse Rate [Apical] Pulse Rate from SpO2 Sensor 92 H 91 H Pulse Rhythm [Apical] Respiratory Rate 18 Respiratory Effort / Characteristics Respiratory Depth Respiratory Pattern Blood Pressure 152/104 H Blood Pressure [Right Arm] Blood Pressure Mean 124 Blood Pressure Mean [Right Arm] Blood Pressure Position Pulse Oximetry 93 97 Oxygen Delivery Method Sepsis Recent Fever Within 48 Hours Sepsis New/Unexplained Change in Mental Status Sepsis Action Taken by Nursing 07/20/23 16:02 07/20/23 16:10 07/20/23 16:20 Temperature Temperature Source Pulse Rate 85 92 H 92 H Pulse Rate [Apical] Pulse Rate from SpO2 Sensor 85 92 H 94 H Pulse Rhythm [Apical] Respiratory Rate 21 22 22 Respiratory Effort / Characteristics Respiratory Depth Respiratory Pattern Blood Pressure Blood Pressure [Right Arm] Blood Pressure Mean Blood Pressure Mean [Right Arm] Blood Pressure Position Pulse Oximetry 98 96 98 Oxygen Delivery Method Sepsis Recent Fever Within 48 Hours Sepsis New/Unexplained Change in Mental Status Sepsis Action Taken by Nursing 07/20/23 16:30 Temperature Temperature Source Pulse Rate 89 Pulse Rate [Apical] Pulse Rate from SpO2 Sensor 88 Pulse Rhythm [Apical] Respiratory Rate 14 Respiratory Effort / Characteristics Respiratory Depth Respiratory Pattern Blood Pressure Blood Pressure [Right Arm] Blood Pressure Mean Blood Pressure Mean [Right Arm] Blood Pressure Position Pulse Oximetry 94 Oxygen Delivery Method Sepsis Recent Fever Within 48 Hours Sepsis New/Unexplained Change in Mental Status Sepsis Action Taken by Nursing Laboratory Data 07/20/23 14:37 07/20/23 14:37 Lab Results 07/20/23 07/20/23 Range/Units 14:37 16:14 WBC 11.45 H (4.8-10.8) K/ul RBC 4.27 L (4.70-6.10) M/uL Hgb 14.4 (14.0-18.0) g/dl Hct 45.3 (42.0-52.0) % MCV 106.1 H (80.0-100.0) fL MCH 33.7 (25.0-34.0) pg MCHC 31.8 L (32.0-36.0) g/dL RDW Std Deviation 75.9 H (36.4-46.3) fL RDW Coeff of Bayron 19.3 H (11.5-14.5) % Plt Count 351 (130-400) K/uL MPV 9.4 (9.4-12.4) fL Immature Gran % (Auto) 0.7 % Neut % (Auto) 92.8 % Lymph % (Auto) 1.9 % Willacy % (Auto) 4.0 % Eos % (Auto) 0.2 % Baso % (Auto) 0.4 % Neut # (Auto) 10.62 H (1.40-6.50) K/uL Lymph # (Auto) 0.22 L (1.20-3.40) K/uL Willacy # (Auto) 0.46 (0.11-0.59) K/uL Eos # (Auto) 0.02 (0.00-0.50) K/uL Baso # (Auto) 0.05 (0.00-0.20) K/uL Immature Gran # (Auto) 0.08 (0.01-0.20) K/uL Polychromasia 1+ Sodium 135 L (136-145) mmol/L Potassium 4.7 (3.5-5.1) mmol/L Chloride 92 L (98-107) mmol/L Carbon Dioxide 25 (21-32) mmol/L Anion Gap 18 H (3-11) BUN 48 H (6-23) mg/dl Creatinine 3.98 H (0.6-1.4) mg/dl Est Cr Clr Drug Dosing Not Reportable Est GFR ( Amer) 15.8 ml/min Est GFR (Non-Af Amer) 13.6 ml/min BUN/Creatinine Ratio 12.1 (10-20) Glucose 226 H (70-99(Fasting)) mg/dl Lactate 5.1 H* (0.4-2.0) mmol/L Calcium 10.0 (8.6-10.3) mg/dl Total Bilirubin 0.4 (0.2-1.0) mg/dl AST 23 (13-39) U/L ALT 11 (7-52) U/L Alkaline Phosphatase 118 H (34-104) U/L Total Protein 8.4 H (6.0-8.3) gm/dl Albumin 4.1 (3.4-5.0) gm/dl Globulin 4.3 H (2.5-4.0) gm/dl Albumin/Globulin Ratio 1.0 (0.9-2) Lipase < 3 L (11-82) U/L Procalcitonin 1.17 H (0-0.5) ng/ml Administered Medications Sodium Chloride (Nss) 1,000 mls @ 999 mls/hr IV .Q1H1M ONE Stop: 07/20/23 17:16 Last Admin: 07/20/23 16:24 Dose: 999 mls/hr Documented By: [facility] Discontinued Medications Fentanyl Citrate (Fentanyl Citrate Pf 100 Mcg/2 Ml Vial) 50 mcg IV NOW STA Stop: 07/20/23 16:56 Last Admin: 07/20/23 17:04 Dose: 50 mcg Documented By: LEIGH Hydromorphone HCl (Hydromorphone Inj 0.5 Mg/0.5 Ml Syr) 0.5 mg IV NOW STA Stop: 07/20/23 16:17 Last Admin: 07/20/23 16:26 Dose: 0.5 mg Documented By: LEIGH Ondansetron HCl (Ondansetron Inj 2 Mg/Ml 2 Ml Vial) 4 mg IV NOW STA Stop: 07/20/23 16:17 Last Admin: 07/20/23 16:25 Dose: 4 mg Documented By: JOSEY Imaging Data Radiologist's Impression: Abdomen/Pelvis CT 07/20/23 14:[address] WITHOUT CONTRAST CT DOSE: 548.65 mGy.cm HISTORY: Acute generalized abdominal pain abdominal pain TECHNIQUE: Multiaxial CT images of the abdomen and pelvis were performed without contrast. A dose lowering technique was utilized adhering to the principles of ALARA. COMPARISON STUDY: PET/CT from outside facility 01/31/2023 without report FINDINGS: Limited exam without the use of IV contrast. Heart is upper limits of normal in size. Extensive coronary artery calcifications. Calcific granuloma in the basal left lower lobe redemonstrated. No pneumatosis or pneumoperitoneum. Diminutive unenhanced spleen is unremarkable. Moderately atrophic pancreas. Unremarkable adrenal glands. Distended gallbladder with wall thickening. Indeterminate 1.7 cm hypodense lesion of the hepatic dome on image 11 series 2, not definitively seen on the prior study. Additional ill-defined hypodense lesion of the posterior right hepatic lobe on image 15 series 2. Cortical thinning of the kidneys, right greater than left with right renal atrophy redemonstrated. Probable simple and complex cysts within the kidneys redemonstrated. These lesions however are incomplete characterized on this study. No hydronephrosis. Decompressed urinary bladder with wall thickening. The pelvic structures are not well evaluated secondary to streak artifact related to the right hip arthroplasty and left proximal femoral ORIF hardware. Atherosclerosis of the aorta. Mild nonspecific periportal lymphadenopathy. Subcentimeter periaortic and pericaval lymph nodes. Distal esophageal wall thickening. Distended air and fluid-filled stomach. The area of hypermetabolic activity within the gastric cardia on the prior study may correlate with an ill-defined area of soft tissue thickening on image 61 series 3. High-grade small bowel obstruction with dilated air and fluid-filled loops of small bowel measuring up to 4.6 cm. There is associated small bowel wall thickening with intraluminal edema. Left lower quadrant descending colostomy redemonstrated. The majority of the large bowel decompressed. A loop of large bowel within the mid lower pelvis demonstrates circumferential wall thickening with hyperemia. There is swirling of the mesentery with transition point noted on image 149 series 3 with marked narrowing of the small bowel distally to this area. No acute fracture. Degenerative and postoperative changes of the spine. IMPRESSION: 1. High-grade small bowel obstruction, likely secondary to an internal hernia. There is associated reactive small bowel wall thickening with trace ascites and interloop edema. Surgical consultation is needed. 2. Hypermetabolic lesion within the region of the gastric cardia seen on the study from 01/31/2023 may correlate with an ill-defined area of soft tissue thickening within the proximal stomach on today's study. 3. Interval development of hepatic metastasis. 4. Gallbladder distention with wall thickening. Findings could be correlated with ultrasound. 5. No pneumatosis or pneumoperitoneum. 6. Left lower quadrant colostomy. 7. Additional findings as above. ACT 112: Negative or not required by law. The above report was generated using voice recognition software. It may contain grammatical, syntax or spelling errors. Electronically signed by: Velasquez Reveles M.D. 07/20/2023 4:26 PM Discharge Plan Visit Data Chief Complaint: Abdominal Pain Stated Complaint: ABD PAIN, DONE WITH CHEMO ED Provider: Rani Pryor Discharge Problem: SBO (small bowel obstruction), Elevated lactic acid level Forms Stand Alone Forms: My Fontself Prescriptions Prescriptions: No Action oxycodone 5 mg tablet 7.5 mg PO Q6H PRN tramadol 50 mg tablet 50 - 100 mg PO Q6H PRN (Reason: Pain) Patient Comments: doesn't take very often, maybe only once per day Magic Mouthwash 300 mL mouthwash 10 ml mucous membrane ACHS Qty: 300 5RF latanoprost [Xalatan] 0.005 % drops 1 drp OPB HS metoprolol succinate 25 mg tablet extended release 24 hr 12.5 mg PO QAM Hold Instructions: Resume on 09/20/22. Was used for HTN, hold until BP improves to high normal. torsemide 100 mg tablet 100 mg PO QAM Belinda-Moose 0.8 mg tablet 1 tab PO QPM sennosides [senna] 8.8 mg/5 mL syrup 5 ml PO BID PRN (Reason: Constipation) sevelamer carbonate [Renvela] 800 mg tablet 800 mg PO UD Patient Comments: usually only takes BID due to only eating 2 meals per day. Rx Instructions: take 1 tablet by mouth TID w/meals omeprazole 40 mg capsule,delayed release(DR/EC) 40 mg PO QAM Referrals Referrals: Barrett Dacosta MD [Primary Care Provider] -
[2023-07-20] MEDS: SODIUM CHLORIDE 0.9% 1,000 ML IV ONE (16:24)
[2023-07-20] MEDS: ONDANSETRON INJ 2 MG/ML 2 ML VIAL IV STA (16:25)
[2023-07-20] MEDS: HYDROmorphone INJ 0.5 MG/0.5 ML SYR IV STA (16:26)
--- NOTE | 2023-07-20 16:27 | CT Scan Report ---
ABDOMEN AND PELVIS CT WITHOUT CONTRAST CT DOSE: 548.65 mGy.cm HISTORY: Acute generalized abdominal pain abdominal pain TECHNIQUE: Multiaxial CT images of the abdomen and pelvis were performed without contrast. A dose lo wering technique was utilized adhering to the principles of ALARA. COMPARISON STUDY: PET/CT from outside facility 01/31/2023 without report FINDINGS: Limited exam without the use of IV contrast. Heart is upper limits of normal in size. Extensive coronary artery calcifications. Calcific granulom a in the basal left lower lobe redemonstrated. No pneumatosis or pneumoperitoneum. Diminutive unenhan jose spleen is unremarkable. Moderately atrophic pancreas. Unremarkable adrenal glands. Distended gall bladder with wall thickening. Indeterminate 1.7 cm hypodense lesion of the hepatic dome on image 11 s eries 2, not definitively seen on the prior study. Additional ill-defined hypodense lesion of the pos terior right hepatic lobe on image 15 series 2. Cortical thinning of the kidneys, right greater than left with right renal atrophy redemonstrated. Pr obable simple and complex cysts within the kidneys redemonstrated. These lesions however are incomple te characterized on this study. No hydronephrosis. Decompressed urinary bladder with wall thickening. The pelvic structures are not well evaluated secondary to streak artifact related to the right hip a rthroplasty and left proximal femoral ORIF hardware. Atherosclerosis of the aorta. Mild nonspecific p eriportal lymphadenopathy. Subcentimeter periaortic and pericaval lymph nodes. Distal esophageal wall thickening. Distended air and fluid-filled stomach. The area of hypermetabolic activity within the gastric cardia on the prior study may correlate with an ill-defined area of soft tissue thickening on image 61 series 3. High-grade small bowel obstruction with dilated air and flui d-filled loops of small bowel measuring up to 4.6 cm. There is associated small bowel wall thickening with intraluminal edema. Left lower quadrant descending colostomy redemonstrated. The majority of th e large bowel decompressed. A loop of large bowel within the mid lower pelvis demonstrates circumfere ntial wall thickening with hyperemia. There is swirling of the mesentery with transition point noted on image 149 series 3 with marked narrowing of the small bowel distally to this area. No acute fracture. Degenerative and postoperative changes of the spine. IMPRESSION: 1. High-grade small bowel obstruction, likely secondary to an internal hernia. There is associated re active small bowel wall thickening with trace ascites and interloop edema. Surgical consultation is n eeded. 2. Hypermetabolic lesion within the region of the gastric cardia seen on the study from 01/31/2023 ma y correlate with an ill-defined area of soft tissue thickening within the proximal stomach on today's study. 3. Interval development of hepatic metastasis. 4. Gallbladder distention with wall thickening. Findings could be correlated with ultrasound. 5. No pneumatosis or pneumoperitoneum. 6. Left lower quadrant colostomy. 7. Additional findings as above. ACT 112: Negative or not required by law. The above report was generated using voice recognition software. It may contain grammatical, syntax o r spelling errors. Electronically signed by: Velasquez Reveles M.D. 07/20/2023 4:26 PM
[2023-07-20] MEDS: fentaNYL citrate PF 100 MCG/2 ML VIAL IV STA (17:04)
[2023-07-20] MEDS ORDERED: fentaNYL citrate PF 100 MCG/2 ML VIAL IV PRN (17:13)
[2023-07-20] MEDS ORDERED: HYDROmorphone INJ 0.5 MG/0.5 ML SYR IV PRN ×3 (17:19→21:30)
[2023-07-20] MEDS ORDERED: oxyCODONE HCL IR 5 MG TAB (IMMEDIATE RELEASE) PO PRN (17:40)
[2023-07-20] MEDS ORDERED: PROCHLORPERAZINE MALEATE 10 MG TAB PO PRN (17:40)
[2023-07-20] MEDS ORDERED: SENNOSIDES 8.8 MG/5 ML UDC PO PRN (17:40)
[2023-07-20] MEDS ORDERED: PROMETHAZINE HCL 12.5 MG in SODIUM CHLORIDE 0.9% 50 ML IV PRN (17:44)
[2023-07-20] MEDS ORDERED: ACETAMINOPHEN 325 MG TAB PO PRN (17:44)
--- NOTE | 2023-07-20 18:06 | History & Physical Report ---
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 Imaging shows high-grade small bowel obstruction. Also patient has significant lactic acidosis and elevated procalcitonin raising possibility of bacterial infection possibly due to his bowel obstruction. Admit to the MedSurg unit N.p.o. except essential oral medications IV fluid resuscitation Consult surgery for surgical evaluation Consult nephrology for ongoing hemodialysis empiric antibiotics for lactic acid and procalcitonin, would suspect GI source for possible bacterial infection Monitor laboratory studies At this time patient denies nausea and has not had any emesis. Would consider holding off on NG tube placement at this time with history of esophageal cancer that recently underwent chemotherapy and radiation. Concerned that passing NG tube could potentially cause significant trauma due to the friable tissue in the esophagus. History of Present Illness Chief Complaint: Abdominal pain some nausea Primary Care Provider: Barrett Dacosta MD Patient is a 78-year-old gentleman with known previous history of small bowel and large bowel obstructions. Previously required laparotomy for bowel obstruction with formation of a colostomy. Patient also has known esophageal cancer. Just completed course of radiation and chemotherapy. He was deemed not a candidate for surgical intervention. Patient also has end-stage renal disease on hemodialysis. Presented to the emergency room with above complaints. Imaging in the emergency room showed a high-grade small bowel obstruction most likely due to internal hernia. CT also noted evidence of liver metastasis. T prince of my evaluation the patient denied nausea. He states he has not had any vomiting. States that his symptoms essentially started earlier this morning. He also noted that his colostomy output has been decreasing over the last 24 hours. He is quite convinced that his abdominal discomfort is due to the fact that he has been a lot his bowels get a little harder. He is on chronic opioids for his cancer pain. He states usually he keeps his bowels fairly soft. He denies any fever or chills. He denies any chest pain or shortness of breath. His at the bedside reports that he did have a PET scan on Monday but does not know the results of the PET scan as of yet. Allergies Allergy/AdvReac Type Severity Reaction Status Date / Time No Known Allergies Allergy Verified 06/15/23 09:37 Home Medications Medication Instructions Recorded Confirmed Type latanoprost 0.005 % eye drops 1 drp OPB HS 03/23/21 07/20/23 History (Xalatan) torsemide 100 mg tablet 100 mg PO QAM 05/26/22 07/20/23 History vitamin B complex-vitamin C-folic 1 tab PO QPM 09/05/22 07/20/23 History acid 0.8 mg tablet (Belinda-Moose) sennosides 8.8 mg/5 mL oral syrup 5 ml PO BID PRN Constipation 01/02/23 07/20/23 History (senna) sevelamer carbonate 800 mg tablet 800 mg PO UD 01/02/23 07/20/23 History (Renvela) omeprazole 40 mg capsule,delayed 40 mg PO QAM 03/27/23 07/20/23 History release metoprolol succinate 25 mg 12.5 mg PO QAM 07/20/23 07/20/23 History tablet,extended release 24 hr oxycodone 10 mg tablet 10 mg PO Q6H PRN Severe Pain 07/20/23 07/20/23 History (Scale Score 7-10) prochlorperazine maleate 10 mg 10 mg PO Q6H PRN Nausea And 07/20/23 07/20/23 History tablet Vomiting Past Med/Surg History Problem List 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 Elevated lactic acid level (Acute) SBO (small bowel obstruction) (Acute) Primary carcinoma of lower third of esophagus (Chronic) S/p left hip fracture Mobitz type 1 second degree AV block SSS (sick sinus syndrome) 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 Status post exploratory laparotomy Colostomy in place Prediabetes Dysphagia Oropharyngeal dysphagia S/P hip hemiarthroplasty rt hip H/O exploratory laparotomy (09/09/22) Exploratory Laparotomy for Bowel Obstruction - Kishor Jorge MD, FACS 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) ESRD (end stage renal disease) on dialysis (Acute) goes to dialysis 3x per week (M/W/F)>[facility] in [place] Permacath present right upper chest Anemia of renal disease (Chronic) Glaucoma Gout (Chronic) HLD (hyperlipidemia) (Chronic) HTN (hypertension) (Chronic) Lumbar stenosis with neurogenic claudication (Chronic) Spondylolisthesis of lumbar region (Acute) Medical History Preoperative cardiovascular examination Open-angle glaucoma History of stroke 05/25/22, f/u [facility] GERD (gastroesophageal reflux disease) Prostate cancer 2013, sx tx only History of nephrolithiasis Surgical History History of hip surgery (03/28/23) Left Hip Open Reduction Internal Fixation(Left) - Jaleel Giles MD Hx of local excision of skin lesion melanoma removed on face History of esophagogastroduodenoscopy (EGD) Hx of lithotripsy Hx of cataract extraction bilat. Hx of prostatectomy robotic assisted retropubic 2012 Hx of colonoscopy History of lumbar fusion Family History Mother , at 88 Stroke Father , in 60s Heart disease Brother Pancreatic cancer Brother No problems noted. Sister No problems noted. Sister No problems noted. Sister No problems noted. Sister No problems noted. Sister No problems noted. Sister No problems noted. Son No problems noted. 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 Sclera clear Neck: Soft, no adenopathy Lungs: Clear to auscultation, decreased, no wheezes rales or rhonchi CV: S1-S2, regular Abdomen: Absent to hyperactive bowel sounds, not overly distended, no tympany, colostomy pink, no significant output Extremities: No significant edema Musculoskeletal: No significant joint tenderness Neuro: chronic left-sided weakness from previous stroke Psych: Cooperative, flat affect, slightly depressed Results & Data Results & Data Vital Signs (Past 12 Hours) Vital Signs Temp Pulse Pulse Resp BP BP Pulse Ox 07/20/23 17:00 97 H 20 159/106 H 97 07/20/23 16:30 89 14 94 07/20/23 16:20 92 H 22 98 07/20/23 16:10 92 H 22 96 07/20/23 16:02 85 21 98 07/20/23 16:02 152/104 H 07/20/23 16:00 91 H 18 97 07/20/23 15:50 94 H 93 07/20/23 15:40 90 14 96 07/20/23 15:39 89 24 07/20/23 15:20 85 21 95 07/20/23 15:10 82 23 94 07/20/23 15:07 160/96 H 07/20/23 15:07 79 19 96 07/20/23 15:07 82 17 160/90 H 97 07/20/23 15:07 92 H 20 95 07/20/23 15:00 79 19 07/20/23 14:50 82 07/20/23 14:45 83 16 07/20/23 14:15 36.8 C 74 18 134/93 96 O2 Del Method 07/20/23 17:00 Room Air 07/20/23 16:30 07/20/23 16:20 07/20/23 16:10 07/20/23 16:02 07/20/23 16:02 07/20/23 16:00 07/20/23 15:50 07/20/23 15:40 07/20/23 15:39 07/20/23 15:20 07/20/23 15:10 07/20/23 15:07 07/20/23 15:07 07/20/23 15:07 Room Air 07/20/23 15:07 Room Air 07/20/23 15:00 07/20/23 14:50 07/20/23 14:45 07/20/23 14:15 Room Air Laboratory Results Reviewed imaging, laboratory and diagnostic studies. Pertinent findings as below. CT scan report reviewed, high-grade small bowel obstruction, metastatic disease in the liver Reviewed PET scan, evidence of metastatic disease in liver WBCs 11.4 Hemoglobin 14.4 BUN 48, creatinine 3.9 Lactic acid 5.1 Procalcitonin 1.1 Code Status & VTE Plan Code Status Conversation with the patient with his at the bedside. He request to be DNR/DNI. He also mentioned that if he would need extensive surgical intervention for his bowel obstruction he may have consider going more palliative/hospice route with stopping hemodialysis and pursuing only comfort measures.
[2023-07-20] MEDS: LACTATED RINGER'S 1,000 ML IV SCH (18:07)
--- NOTE | 2023-07-20 18:12 | Surgery Consultation ---
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 Imaging findings concerning for high-grade obstruction in addition to closed-loop with mesenteric swirling. Clinically the patient does not appear or examined as such. Of note, I have discussed the imaging findings and concerns with Ricky and the significance of these findings if we would note these findings are clinically true. We discussed surgery as the means to treat such an obstruction to prevent catastrophic bowel injury which would lead to if not addressed. I have also made him aware that the CT imaging does appear suspicious for metastatic disease to the liver. Ricky has firmly stated he does not want any further surgery. He has been unhappy with the colostomy bag that he has also had discussions regarding discontinuing dialysis. He is aware that discontinuing dialysis also would lead to . His Isabelle is at the bedside and is aware of this discussion as well. I do believe that there is an opportunity for this SBO to resolve with conservative measures based on his current clinical picture and Ricky is willing to accept an NG tube. Ricky is being admitted to medicine. Recommend NGT to low continuous wall suction and n.p.o. Pain control with analgesics. He will likely require dialysis while he is here unless he refuses. Further medical management will be per the medical decision team. Surgery will follow for now. History of Present Illness Reason for Consultation: SBO History of Present Illness 78-year-old male with a with HTN, end-stage renal disease requiring dialysis (s/p dialysis yesterday), esophageal cancer S/P chemoradiation completed 3 weeks ago and prior bowel obstruction S/P colostomy 1 year ago presented to the ED with abdominal pain that he states began this morning around 7 AM. He describes the pain as a generalized burning at the lower central abdomen which he has experienced in the past after eating or taking medications. Ricky explains that he had not had those pains for a while as it had for the most part been resolved since using a prescribed mouth wash. In this particular case the pain did not resolve and he was unable to continue to tolerate oral intake with the onset of nausea without vomiting. In the emergency department he is mildly tachycardic and hypertensive. He is afebrile with mild leukocytosis to 11.45 and a serum lactate elevated to 5. A CT of the A/P without contrast was performed that revealed a high grade small bowel obstruction with bowel wall thickening, interloop edema and a trace ascites. Interval hepatic mets are also noted on the CT. A general surgery consultation was called. Upon my interview with Ricky, he appears very comfortable, appears cachectic/chronically sickly but not acute appearing and not toxic appearing. He states his abdominal pain is improved with the pain medication but he also has chronic back pain which was bothering him more so than the abdominal pain at the time of medication administration. He denies any current nausea and says his colostomy has continued to function throughout the day filling with both gas and stool requiring him to empty it. Ricky says nausea has resolved, he denies vomiting or any other associated symptoms. Allergies Allergy/AdvReac Type Severity Reaction Status Date / Time No Known Allergies Allergy Verified 06/15/23 09:37 Home Medications Medication Instructions Recorded Confirmed Type latanoprost 0.005 % eye drops 1 drp OPB HS 03/23/21 07/20/23 History (Xalatan) torsemide 100 mg tablet 100 mg PO QAM 05/26/22 07/20/23 History vitamin B complex-vitamin C-folic 1 tab PO QPM 09/05/22 07/20/23 History acid 0.8 mg tablet (Belinda-Moose) sennosides 8.8 mg/5 mL oral syrup 5 ml PO BID PRN Constipation 01/02/23 07/20/23 History (senna) sevelamer carbonate 800 mg tablet 800 mg PO UD 01/02/23 07/20/23 History (Renvela) omeprazole 40 mg capsule,delayed 40 mg PO QAM 03/27/23 07/20/23 History release metoprolol succinate 25 mg 12.5 mg PO QAM 07/20/23 07/20/23 History tablet,extended release 24 hr oxycodone 10 mg tablet 10 mg PO Q6H PRN Severe Pain 07/20/23 07/20/23 History (Scale Score 7-10) prochlorperazine maleate 10 mg 10 mg PO Q6H PRN Nausea And 07/20/23 07/20/23 History tablet Vomiting Patient History Medical History Preoperative cardiovascular examination Open-angle glaucoma History of stroke 05/25/22, f/u [facility] GERD (gastroesophageal reflux disease) Prostate cancer 2012, sx tx only History of nephrolithiasis Surgical History History of hip surgery (03/28/23) Left Hip Open Reduction Internal Fixation(Left) - Jaleel Giles MD Hx of local excision of skin lesion melanoma removed on face History of esophagogastroduodenoscopy (EGD) Hx of lithotripsy Hx of cataract extraction bilat. Hx of prostatectomy robotic assisted retropubic 2012 Hx of colonoscopy History of lumbar fusion Family History Mother , at 88 Stroke Father , in 60s Heart disease Brother Pancreatic cancer Brother No problems noted. Sister No problems noted. Sister No problems noted. Sister No problems noted. Sister No problems noted. Sister No problems noted. Sister No problems noted. Son No problems noted. 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 How many Children do You have: 1 Feels Safe at Home: Yes Childhood Exposure to Second-Hand Smoke: No Diet: regular Diet Comment: high protein, low potassium during the past year weight has: decreased > 10 lbs Dental Care, Regularly: No Assistive Devices: None Review of Systems Constitutional: + body aches (chronic back pain); no fev er, no chills and no sweats Respiratory: no cough, no chest congestion, no hemoptysis and no wheezing Cardiovascular: no chest pain, no dyspnea, no palpitations, no syncope and no edema Gastrointestinal: + nausea (currently feels resolved); no belching, no bloating and no vomiting Physical Exam Constitutional: + cachectic and + frail appearing; no ac jason distress and not diaphoretic Respiratory: normal respiratory effort; no respiratory distress, no labored breathing and does not use accessory muscles Cardiovascular: Rate/Rhythm: + tachycardic Extremities: no edema Gastrointestinal (Abdomen): Inspection/Auscultation: abdomen not distended Percussion/Palpation: + abdomen tender (minimal TTP difusely) and abdomen soft; no guarding and abdomen not rigid Psychiatric: Orientation: alert, oriented x 3 and cooperative; not guarded Results & Data Vital Signs (Past 12 Hours) Vital Signs Temp Pulse Pulse Resp BP BP Pulse Ox 07/20/23 17:00 97 H 20 159/106 H 97 07/20/23 16:30 89 14 94 07/20/23 16:20 92 H 22 98 07/20/23 16:10 92 H 22 96 07/20/23 16:02 85 21 98 07/20/23 16:02 152/104 H 07/20/23 16:00 91 H 18 97 07/20/23 15:50 94 H 93 07/20/23 15:40 90 14 96 07/20/23 15:39 89 24 07/20/23 15:20 85 21 95 07/20/23 15:10 82 23 94 07/20/23 15:07 160/96 H 07/20/23 15:07 79 19 96 07/20/23 15:07 82 17 160/90 H 97 07/20/23 15:07 92 H 20 95 07/20/23 15:00 79 19 07/20/23 14:50 82 07/20/23 14:45 83 16 07/20/23 14:15 36.8 C 74 18 134/93 96 O2 Del Method 07/20/23 17:00 Room Air 07/20/23 16:30 07/20/23 16:20 07/20/23 16:10 07/20/23 16:02 07/20/23 16:02 07/20/23 16:00 07/20/23 15:50 07/20/23 15:40 07/20/23 15:39 07/20/23 15:20 07/20/23 15:10 07/20/23 15:07 07/20/23 15:07 07/20/23 15:07 Room Air 07/20/23 15:07 Room Air 07/20/23 15:00 07/20/23 14:50 07/20/23 14:45 07/20/23 14:15 Room Air Laboratory Results Lactate 5.1 Instructor Nurse [address] A/P without contrast: I have also independently reviewed this image FINDINGS: Limited exam without the use of IV contrast. Heart is upper limits of normal in size. Extensive coronary artery janki cifications. Calcific granuloma in the basal left lower lobe redemonstrated. No pneumatosis or pneumoperitoneum. Diminutive unenhanced spleen is unremarkable. Moderately atrophic pancreas. Unremarkable adrenal glands. Distended gallbladder with wall thickening. Indeterminate 1.7 cm hypodense lesion of the hepatic dome on image 11 series 2, not definitively seen on the prior study. Additional ill-d efined hypodense lesion of the posterior right hepatic lobe on image 15 series 2. Cortical thinning of the kidneys, right greater than left with right renal atrophy redemonstrated. Probable simple and complex cysts within the kidneys redemonstrated. These lesions however are incomplete characterized on this study. No hydronephrosis. Decompressed urinary bladder with wall thickening. The pelvic structures are not well evaluated secondary to streak artifact related to the right hip arthroplasty and left proximal femoral ORIF hardware. Atherosclerosis of the aorta. Mild nonspecific periportal lymphadenopathy. Subcentimeter periaortic and pericaval lymph nodes. Distal esophageal wall thickening. Distended air and fluid-filled stomach. The area of hypermetabolic activity within the gastric cardia on the prior study may correlate with an ill-defined area of soft tissue thickening on image 61 series 3. High-grade small bowel obstruction with dilated air and fluid-filled loops of small bowel measuring up to 4.6 cm. There is associated small bowel wall thickening with intraluminal edema. Left lower quadrant descending colostomy redemonstrated. The majority of the large bowel decompressed. A loop of large bowel within the mid lower pelvis demonstrates circumferential wall thickening with hyperemia. There is swirling of the mesentery with transition point noted on image 149 series 3 with marked narrowing of the small bowel distally to this area. No acute fracture. Degenerative and postoperative changes of the spine. IMPRESSION: 1. High-grade small bowel obstruction, likely secondary to an internal hernia. There is associated reactive small bowel wall thickening with trace ascites and interloop edema. Surgical consultation is needed. 2. Hypermetabolic lesion within the region of the gastric cardia seen on the study from 01/31/2023 may correlate with an ill-defined area of soft tissue thickening within the proximal stomach on today's study. 3. Interval development of hepatic metastasis. 4. Gallbladder distention with wall thickening. Findings could be correlated with ultrasound. 5. No pneumatosis or pneumoperitoneum. 6. Left lower quadrant colostomy. 7. Additional findings as above. Results CBC w Diff Results: RBC 4.27 M/uL (4.70-6.10) L 07/20/23 WBC 11.45 K/ul (4.8-10.8) H 07/20/23 Hgb 14.4 g/dl (14.0-18.0) 07/20/23 Hct 45.3 % (42.0-52.0) 07/20/23 MCV 106.1 fL (80.0-100.0) H 07/20/23 MCH 33.7 pg (25.0-34.0) 07/20/23 MCHC 31.8 g/dL (32.0-36.0) L 07/20/23 RDW Standard Deviation 75.9 fL (36.4-46.3) H 07/20/23 RDW Coefficient of Variation 19.3 % (11.5-14.5) H 07/20/23 Plt Count 351 K/uL (130-400) 07/20/23 MPV 9.4 fL (9.4-12.4) 07/20/23 Nucleated Red Blood Cells % (auto) 0.2 % 09/05 Nucleated RBC Absolute Count (auto) 0.02 K/uL (0-0.12) 05/26 Neutrophils (%) (Auto) 92.8 % 07/20/23 Lymphocytes (%) (Auto) 1.9 % 07/20/23 Monocytes # (Auto) 0.46 K/uL (0.11-0.59) 07/20/23 Eosinophils # (Auto) 0.02 K/uL (0.00-0.50) 07/20/23 Immature Granulocyte % (Auto) 0.7 % 07/20/23 Neutrophils # (Auto) 10.62 K/uL (1.40-6.50) H 07/20/23 Lymphocytes # (Auto) 0.22 K/uL (1.20-3.40) L 07/20/23 Monocytes # (Auto) 0.46 K/uL (0.11-0.59) 07/20/23 Eosinophils # (Auto) 0.02 K/uL (0.00-0.50) 07/20/23 Basophils # (Auto) 0.05 K/uL (0.00-0.20) 07/20/23 Immature Granulocyte # (Auto) 0.08 K/uL (0.01-0.20) 4 Polychromasia 1+ 07/20/23 PG Care Time/CCT Total # of Minutes Spent Total Time Spent with Patient: Total time spent is greater than 50% in coordination of care (as documented) at patient's floor/unit and/or counseling patient: Coding Level of Care Code 21592 INT INP/OBS CARE 40MIN Diagnoses 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
[2023-07-20] MEDS: PIPER/TAZO 4.5g in D5W MINI-B 100 ML IV ONE (19:13)
[2023-07-20] MEDS: SEVELAMER CARBONATE 800 MG TAB PO ONE (20:03)
[2023-07-20] MEDS ORDERED: NON-FORMULARY MEDICATION (B Complex-Vitamin C-Folic Acid [Rena-Vite] 0.8 mg tablet) PO SCH (21:00)
[2023-07-20] MEDS: METOPROLOL SUCC 25MG EXT REL TAB PO ONE (21:21)
--- NOTE | 2023-07-20 21:34 | Communication Note ---
Date of Service: July 20, 2023 Patient noted to be hypotensive, tachycardic, lethargic, hypothermic upon arrival at the floor. Maintenance IVF ordered on admission not yet running at time of floor arrival Ap Severe sepsis SIRS plus lactic acid elevation PCU transfer given hypotension Continue gentle IVF given history ESRD, Zosyn ICU transfer if with persistent hypotension given potential need for pressor Rx Case discussed with patient at bedside. Declines pressor Rx for now.
[2023-07-20 21:53] LABS: Magnesium 2.5 mg/dl (1.7-2.4)
[2023-07-20] MEDS ORDERED: CARBOHYDRATES FOR HYPOGLYCEMIA PO PRN (22:05)
[2023-07-20] MEDS ORDERED: DEXTROSE 50% 50 ML SYRINGE IV PRN (22:05)
[2023-07-20] MEDS ORDERED: GLUCAGON FOR INJ 1 MG VIAL SQ PRN (22:05)
[2023-07-20] MEDS ORDERED: GLUCOSE 40% GEL 15 GM TUBE PO PRN (22:05)
[2023-07-20] MEDS ORDERED: GLUCOSE 10 TAB/TUBE PO PRN (22:05)
[2023-07-20] MEDS: PANTOprazole 40 MG in SYRINGE 0 ML IV SCH (23:00)
[2023-07-20] MEDS: LATANOPROST 0.005% OP SOLN 2.5 ML BTL OPB SCH (23:01)
[2023-07-20] MEDS: HEPARIN SOD 5,000 UNIT/0.5 ML VIAL SQ SCH (23:01)
[2023-07-20] MEDS: INSULIN ASPART PER UNIT CHARGE SC SCH (23:07)
[2023-07-21] MEDS: ACETAMINOPHEN 1,000 MG/100 ML VIAL IV PRN (01:19)
[2023-07-21] MEDS: PIPERACILLIN/TAZOBACTAM 4.5 GM in DEXTROSE 5% MINI-B 100 ML IV SCH (04:27)
[2023-07-21 06:36] LABS: Hematocrit (blood only) 46.1 % (42.0-52.0); Hemoglobin 14.6 g/dl (14.0-18.0); Mean Corpuscular Hgb Conc 31.7 g/dL (32.0-36.0); Mean Corpuscular Volume 107.2 fL (80.0-100.0); Platelet Count 359 K/uL (130-400); RDW Coefficient of Variation 19.9 % (11.5-14.5); RDW Standard Deviation 78.5 fL (36.4-46.3); White Blood Count 9.75 K/ul (4.8-10.8)
[2023-07-21 06:40] LABS: BUN Creatinine Ratio 13.1 (10-20); Calcium 9.9 mg/dl (8.6-10.3); Creatinine Clr Calc Pharmacy 11.1 ml/min; Est GFR (African American) 14.1 ml/min; Est GFR (Non-African American) 12.2 ml/min; Magnesium 2.7 mg/dl (1.7-2.4); Phosphorus 6.6 mg/dl (2.5-4.9); Potassium 5.8 mmol/L (3.5-5.1)
--- NOTE | 2023-07-21 07:45 | Surgery Progress Note ---
Date of Service July 21, 2023 Assessment & Plan (1) SBO (small bowel obstruction): Plan: Pt w/ history of esophageal cancer & ESRD on dialysis here with abdominal pain/nausea/vomiting and CT with concern for internal hernia causing SBO -Discussions yesterday were had between patient and Dr. Rodriguez, please see her consult note for full details -Today's labs reveal WBC 9.7, Lactate 7.6, K 5.8. Vitals show he is hypotensive (last check 82/50), with HRs 100s -On exam pt is ill appearing, abdomen is soft, with diffuse ttp, Ostomy viable with scant stool in bag -Again discussed with patient his options and he does not wish to pursue surgery or NGT. 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 He appears jaundiced, cyanotic at the fingertips, hypotensive, afebrile. On my interview he states he is confused and states he does not know what he wants. At this time his is back at the bedside. This am he has been transferred to the ICU and is on pressors. He is recommended for dialysis today by nephrology and stats he has become confused after speaking with them earlier. He is unsure of whether or not he will continue with dialysis after he spoke with them and may consider doing it at least for today as he feels he needs more time to think. He states he had an NGT in place yesterday but felt as though he could not b reath with it and thus requested it be removed. I have spoken to him and his again and later in the am after refusing surgery earlier this am, he states he is unsure of what he wants and now he feels confused. I have made them aware that at this point, he would not likely survive a surgery and he would likely remain intubated and unconscious during his last moments. Mr. Cason is wiling to try an NGT again to see if there is some potential for relief with that. Otherwise, they are again considering no dialysis and going home with hospice care pending conversation with the medicine team. His Isabelle says their son is on his way. I have urged them to call me back for further discussion should they have more questions from a surgical standpoint. Subjective Patient reports not feeling well this AM. Remains with abdominal pain that is not improved since admission. + nausea. scant liquid stool in ostomy bag. Feels very thirsty and wants to have a drink. Discussed he is thinking about stopping dialysis and has no wishes to undergo surgery even if warranted. Physical Exam Physical Exam: awake/alert. appears ill Constitutional: + ill appearing Respiratory: normal respiratory effort Gastrointestinal (Abdomen): Inspection/Auscultation: abdomen not distended Percussion/Palpation: + abdomen tender (diffusely) and abdomen soft + ostomy, scant amount of liquid stool i n bag Results & Data Vital Signs (Past 12 Hours) Vital Signs Temp Pulse Pulse Resp BP BP Pulse Ox 07/21/23 07:25 98 H 07/21/23 03:56 97.3 F L 102 H 18 82/50 L 96 07/21/23 00:32 97.9 F 109 H 18 115/85 98 07/20/23 22:59 104 H 07/20/23 22:20 07/20/23 22:00 07/20/23 22:00 94.6 F L 104 H 18 94/66 L 96 07/20/23 21:30 94.5 F L 110 H 14 95/61 L 98 07/20/23 20:40 106 H 23 07/20/23 20:30 111 H 20 07/20/23 20:30 110/81 07/20/23 20:20 109 H 19 99 07/20/23 20:15 106 H 18 127/96 98 07/20/23 20:10 106 H 19 99 07/20/23 20:00 107 H 26 H 97 07/20/23 20:00 127/96 07/20/23 19:50 110 H 21 100 07/20/23 19:40 106 H 18 100 Pulse Ox O2 Del Method O2 Del Method 07/21/23 07:25 07/21/23 03:56 Room Air 07/21/23 00:32 Room Air 07/20/23 22:59 07/20/23 22:20 96 Room Air 07/20/23 22:00 Room Air 07/20/23 22:00 Room Air 07/20/23 21:30 Room Air 07/20/23 20:40 07/20/23 20:30 07/20/23 20:30 07/20/23 20:20 07/20/23 20:15 Room Air 07/20/23 20:10 07/20/23 20:00 07/20/23 20:00 07/20/23 19:50 07/20/23 19:40 PG Care Time/CCT Total # of Minutes Spent Total Time Spent with Patient: Total time spent is greater than 50% in coordination of care (as documented) at patient's floor/unit and/or counseling patient: Coding Level of Care Code 02918 SUB INP/OBS CARE 2/35MIN Medical Decision Making Moderate Complexity Diagnoses SBO (small bowel obstruction) K56.609 Primary carcinoma of lower third of esophagus C15.5 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 C78.7
--- NOTE | 2023-07-21 07:48 | XRay Report ---
SINGLE VIEW CHEST CLINICAL HISTORY: Renal failure. FINDINGS: An AP, portable, upright chest radiograph is compared to study dated 03/27/2023. The examina tion is degraded by portable technique and patient rotation. The heart is enlarged noting atheroscle rotic calcification of the thoracic aorta. The pulmonary vasculature is noncongested. Chronic interst itial thickening is similar to previous. There is chronic elevation of the left hemidiaphragm, with b ibasilar scarring/atelectasis. No airspace consolidation or large pleural effusion is identified. A l arge calcified granuloma is seen at the left lung base. No pneumothorax is seen. The skeletal structu res are osteopenic. The bony thorax is grossly intact. IMPRESSION: Cardiomegaly with no acute cardiopulmonary abnormality identified. ACT 112: Negative or not required by law. Electronically signed by: Rayshawn Javed M.D. 07/21/2023 7:46 AM
[2023-07-21] MEDS: SODIUM CHLORIDE 0.9% 500 ML IV ONE (08:12)
[2023-07-21] MEDS: SEVELAMER CARBONATE 800 MG TAB PO SCH (08:16)
[2023-07-21] MEDS: PROMETHAZINE HCL 6.25 MG in SODIUM CHLORIDE 0.9% 50 ML IV PRN (08:25)
[2023-07-21] MEDS ORDERED: Nursing to Pharmacy Communication SCH (08:45)
[2023-07-21] MEDS ORDERED: TORSEMIDE 100 MG TAB PO SCH (09:00)
[2023-07-21] MEDS ORDERED: NON-FORMULARY MEDICATION (Omeprazole 40 mg capsule,delayed release(DR/EC)) PO SCH (09:00)
[2023-07-21] MEDS ORDERED: METOPROLOL SUCC 25MG EXT REL TAB PO SCH (09:00)
--- NOTE | 2023-07-21 09:09 | Critical Care Consultation ---
Date of Consultation July 21, 2023 Assessment & Plan (1) Acute mesenteric ischemia: Reason Critically Ill: 78-year-old male with end-stage renal disease acute bowel obstruction inducing acute mesenteric ischemia. PLAN: Neuro: [] - [] Resp: [] - [] CV: Hypotension -Discussed risk benefits of central venous access, patient declined central access Fluids/Renal: End-stage renal disease on dialysis -Discussed with nephrology, plan for possible ultrafiltration later today Hyperkalemia High gap metabolic acidosis ID: Septic shock secondary to acute mesenteric ischemia GI/Nutrition: Metastatic adenocarcinoma Small bowel obstruction Presumptive acute mesenteric ischemia Heme: Anemia of chronic disease Endocrine: Vascular access: Peripheral IVs Code Status: DNR Disposition: ICU Family presented to the bedside had discussion with them and reevaluated the p atient at 1415. Patient clearly has had progression of disease and has increasing vasoactive requirements. Patient was deemed not suitable surgical candidate. Patient was willing to accept NG tube for hopeful decompression and possible improvement that would allow him to go home with hospice. However, it is increasingly apparent that the patient is now vasoactive medication dependent. Discussing options with family they prefer to stop dialysis as this now appears to be simply a life prolonging procedure. Patient is experiencing moderate abdominal pain however he does not want pain medication at this time. I will notify the nephrology team that the patient is declining dialysis and would transition to comfort measures with expectant management. I anticipate the patient would pass in the next 24 hours. (2) 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: (3) SBO (small bowel obstruction): (4) Primary carcinoma of lower third of esophagus: (5) ESRD (end stage renal disease) on dialysis: (6) Septic shock: Supervising Physician Co-Signing Physician Notes I have personally spent 45 minutes of critical care time in the direct management of this patient. This is a life/limb threatening event. This includes time spent evaluating patient, direct bedside care, chart review, placing orders, interpretation of diagnostic studies, discussion with consultants, patient, and/or family members regarding treatment decisions, as well as other required patient management activities. This time is exclusive of all separately billable procedures, and teaching time and separate from and in addition to any other critical care service time. History of Present Illness Reason for Consultation: Hypotension Attending Physician: Shira العلي MD History of Present Illness Patient is a 78-year-old male with a complex past medical history including esophageal cancer and end-stage renal disease on dialysis. There is concern for a internal hernia causing a small bowel obstruction. The patient has been reluctant to pursue operative management as well as NG tube placement. He was also contemplating whether to discontinue dialysis and transition to comfort. He would like to speak with his family and in the interim became hypotensive, he is agreeable to a limited trial of vasoactive's. I discussed with nephrology their hope is for the patient to undergo ultrafiltration today as he weighs his options. During my evaluation the patient is alert and oriented. Does exhibit insight and appears to rationally manipulate the information/risks and benefits. Allergies Allergy/AdvReac Type Severity Reaction Status Date / Time No Known Allergies Allergy Verified 06/15/23 09:37 Home Medications Medication Instructions Recorded Confirmed Type latanoprost 0.005 % eye drops 1 drp OPB HS 03/23/21 07/20/23 History (Xalatan) torsemide 100 mg tablet 100 mg PO QAM 05/26/22 07/20/23 History vitamin B complex-vitamin C-folic 1 tab PO QPM 09/05/22 07/20/23 History acid 0.8 mg tablet (Belinda-Moose) sennosides 8.8 mg/5 mL oral syrup 5 ml PO BID PRN Constipation 01/02/23 07/20/23 History (senna) sevelamer carbonate 800 mg tablet 800 mg PO UD 01/02/23 07/20/23 History (Renvela) omeprazole 40 mg capsule,delayed 40 mg PO QAM 03/27/23 07/20/23 History release metoprolol succinate 25 mg 12.5 mg PO QAM 07/20/23 07/20/23 History tablet,extended release 24 hr oxycodone 10 mg tablet 10 mg PO Q6H PRN Severe Pain 07/20/23 07/20/23 History (Scale Score 7-10) prochlorperazine maleate 10 mg 10 mg PO Q6H PRN Nausea And 07/20/23 07/20/23 History tablet Vomiting Patient History Medical History Preoperative cardiovascular examination Open-angle glaucoma History of stroke 05/25/22, f/u [facility] GERD (gastroesophageal reflux disease) Prostate cancer 2013, sx tx only History of nephrolithiasis Surgical History History of hip surgery (03/28/23) Left Hip Open Reduction Internal Fixation(Left) - Jaleel Giles MD Hx of local excision of skin lesion melanoma removed on face History of esophagogastroduodenoscopy (EGD) Hx of lithotripsy Hx of cataract extraction bilat. Hx of prostatectomy robotic assisted retropubic 2013 Hx of colonoscopy History of lumbar fusion Family History Mother , at 88 Stroke Father , in 60s Heart disease Brother Pancreatic cancer Brother No problems noted. Sister No problems noted. Sister No problems noted. Sister No problems noted. Sister No problems noted. Sister No problems noted. Sister No problems noted. Son No problems noted. 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 nontoxic, frail in appearance Skin: Warm, dry, pale Head: Atraumatic Ears, nose, mouth and throat: airway patent Cardiovascular: Normal peripheral perfusion Respiratory: no respiratory distress Gastrointestinal: Non distended Musculoskeletal: No deformity Results & Data Results & Data Vital Signs (Past 12 Hours) Vital Signs Temp Pulse Pulse Resp BP Pulse Ox Pulse Ox 07/21/23 09:06 80/40 L 07/21/23 08:50 88 59/54 L 07/21/23 08:37 96 H 21 65/51 L 94 07/21/23 07:25 98 H 07/21/23 03:56 36.3 C L 102 H 18 82/50 L 96 07/21/23 00:32 36.6 C 109 H 18 115/85 98 07/20/23 22:59 104 H 07/20/23 22:20 96 07/20/23 22:00 07/20/23 22:00 34.8 C L 104 H 18 94/66 L 96 07/20/23 21:30 34.7 C L 110 H 14 95/61 L 98 O2 Del Method O2 Del Method 07/21/23 09:06 07/21/23 08:50 07/21/23 08:37 Room Air 07/21/23 07:25 07/21/23 03:56 Room Air 07/21/23 00:32 Room Air 07/20/23 22:59 07/20/23 22:20 Room Air 07/20/23 22:00 Room Air 07/20/23 22:00 Room Air 07/20/23 21:30 Room Air Critical Care Results & Data Vital Signs (Past 12 Hours) Vital Signs Temp Pulse Pulse Resp BP BP Pulse Ox 07/21/23 12:00 96 H 34 H 114/68 86 L 07/21/23 11:46 97 H 87/52 L 07/21/23 11:20 94 H 29 H 95/76 L 07/21/23 11:10 94 H 33 H 85/49 L 59 L 07/21/23 11:00 96 H 29 H 93/59 L 07/21/23 10:30 93 H 31 H 101/67 07/21/23 10:20 91 H 27 H 114/70 89 L 07/21/23 10:10 94 H 37 H 98/59 L 80 L 07/21/23 10:00 97 H 27 H 91/56 L 07/21/23 09:50 93 H 31 H 110/78 95 07/21/23 09:45 92 H 33 H 127/84 97 07/21/23 09:40 89 31 H 89/48 L 100 07/21/23 09:35 70/48 L 07/21/23 09:30 75/49 L 07/21/23 09:06 80/40 L 07/21/23 08:50 88 59/54 L 07/21/23 08:37 96 H 21 65/51 L 94 07/21/23 07:25 98 H 07/21/23 03:56 36.3 C L 102 H 18 82/50 L 96 O2 Del Method 07/21/23 12:00 07/21/23 11:46 07/21/23 11:20 07/21/23 11:10 07/21/23 11:00 07/21/23 10:30 07/21/23 10:20 07/21/23 10:10 07/21/23 10:00 07/21/23 09:50 07/21/23 09:45 07/21/23 09:40 07/21/23 09:35 07/21/23 09:30 07/21/23 09:06 07/21/23 08:50 07/21/23 08:37 Room Air 07/21/23 07:25 07/21/23 03:56 Room Air Lab & Micro Results (Past 24 Hours) RBC 4.30 M/uL (4.70-6.10) L 07/21/23 WBC 9.75 K/ul (4.8-10.8) 07/21/23 Hgb 14.3 g/dl (14.0-18.0) 07/21/23 Hct 46.1 % (42.0-52.0) 07/21/23 MCV 107.2 fL (80.0-100.0) H 07/21/23 MCH 34.0 pg (25.0-34.0) 07/21/23 MCHC 31.7 g/dL (32.0-36.0) L 07/21/23 RDW Standard Deviation 78.5 fL (36.4-46.3) H 07/21/23 RDW Coefficient of Variation 19.9 % (11.5-14.5) H 07/21/23 Plt Count 359 K/uL (130-400) 07/21/23 MPV 10.0 fL (9.4-12.4) 07/21/23 Neutrophils (%) (Auto) 92.8 % 07/20/23 Lymphocytes (%) (Auto) 1.9 % 07/20/23 Monocytes # (Auto) 0.46 K/uL (0.11-0.59) 07/20/23 Eosinophils # (Auto) 0.02 K/uL (0.00-0.50) 07/20/23 Immature Granulocyte % (Auto) 0.7 % 07/20/23 Neutrophils # (Auto) 10.62 K/uL (1.40-6.50) H 07/20/23 Lymphocytes # (Auto) 0.22 K/uL (1.20-3.40) L 07/20/23 Monocytes # (Auto) 0.46 K/uL (0.11-0.59) 07/20/23 Eosinophils # (Auto) 0.02 K/uL (0.00-0.50) 07/20/23 Basophils # (Auto) 0.05 K/uL (0.00-0.20) 07/20/23 Immature Granulocyte # (Auto) 0.08 K/uL (0.01-0.20) 4 Polychromasia 1+ 07/20/23 Na 132 mmol/L (136-145) L 07/21/23 K 6.1 mmol/L (3.5-5.1) H* 07/21/23 Cl 97 mmol/L (98-107) L 07/21/23 CO2 16 mmol/L (21-32) L 07/21/23 Anion Gap 19 (3-11) H 07/21/23 BUN 59 mg/dl (6-23) H 07/21/23 Creatinine 4.49 mg/dl (0.6-1.4) H 07/21/23 Estimated GFR ( Amer) 13.6 ml/min 07/21/23 Estimated GFR (Non-Af Amer) 11.8 ml/min 07/21/23 BUN/Creatinine Ratio 13.1 (10-20) 07/21/23 Glu 121 mg/dl (70-99(Fasting)) H 07/21/23 Ca 9.4 mg/dl (8.6-10.3) 07/21/23 Phosphorus Level 6.6 mg/dl (2.5-4.9) H 07/21/23 Total Bilirubin 0.5 mg/dl (0.2-1.0) 07/21/23 AST 87 U/L (13-39) H 07/21/23 ALT 49 U/L (7-52) 07/21/23 Alkaline Phosphatase 97 U/L (34-104) 07/21/23 TP 7.2 gm/dl (6.0-8.3) 07/21/23 Albumin 3.6 gm/dl (3.4-5.0) 07/21/23 Globulin 3.6 gm/dl (2.5-4.0) 07/21/23 Albumin/Globulin Ratio 1.0 (0.9-2) 07/21/23 Mg 2.7 mg/dl (1.7-2.4) H 07/21/23 05:49 Calcium Level 9.4 mg/dl (8.6-10.3) 07/21/23 12:25 Venous Blood pH 7.10 (7.36-7.41) L 07/21/23 12:25 Venous Blood Partial Pressure CO2 55 mmHg (38-50) H 07/21/23 12 :25 Venous Blood Partial Pressure O2 < 20 mmHg 07/21/23 12:25 Venous Blood HCO3 17 mmol/L 07/21/23 12:25 Venous Blood Base Excess -12.8 mEq/L 07/21/23 12:25 Venous Blood Oxygen Saturation < 60.0 % 07/21/23 12:25 Diagnostic Findings (Past 24 Hours) Abdomen/Pelvis CT 07/20/23 14:[address] WITHOUT CONTRAST CT DOSE: 548.65 mGy.cm HISTORY: Acute generalized abdominal pain abdominal pain TECHNIQUE: Multiaxial CT images of the abdomen and pelvis were performed without contrast. A dose lowering technique was utilized adhering to the principles of ALARA. COMPARISON STUDY: PET/CT from outside facility 01/31/2023 without report FINDINGS: Limited exam without the use of IV contrast. Heart is upper limits of normal in size. Extensive coronary artery calcifications. Calcific granuloma in the basal left lower lobe redemonstrated. No pneumatosis or pneumoperitoneum. Diminutive unenhanced spleen is unremarkable. Moderately atrophic pancreas. Unremarkable adrenal glands. Distended gallbladder with wall thickening. Indeterminate 1.7 cm hypodense lesion of the hepatic dome on image 11 series 2, not definitively seen on the prior study. Additional ill-defined hypodense lesion of the posterior right hepatic lobe on image 15 series 2. Cortical thinning of the kidneys, right greater than left with right renal atrophy redemonstrated. Probable simple and complex cysts within the kidneys redemonstrated. These lesions however are incomplete characterized on this study. No hydronephrosis. Decompressed urinary bladder with wall thickening. The pelvic structures are not well evaluated secondary to streak artifact related to the right hip arthroplasty and left proximal femoral ORIF hardware. Atherosclerosis of the aorta. Mild nonspecific periportal lymphadenopathy. S ubcentimeter periaortic and pericaval lymph nodes. Distal esophageal wall thickening. Distended air and fluid-filled stomach. The area of hypermetabolic activity within the gastric cardia on the prior study may correlate with an ill-defined area of soft tissue thickening on image 61 series 3. High-grade small bowel obstruction with dilated air and fluid-filled loops of small bowel measuring up to 4.6 cm. There is associated small bowel wall thickening with intraluminal edema. Left lower quadrant descending colostomy redemonstrated. The majority of the large bowel decompressed. A loop of large bowel within the mid lower pelvis demonstrates circumferential wall thickening with hyperemia. There is swirling of the mesentery with transition point noted on image 149 series 3 with marked narrowing of the small bowel distally to this area. No acute fracture. Degenerative and postoperative changes of the spine. IMPRESSION: 1. High-grade small bowel obstruction, likely secondary to an internal hernia. There is associated reactive small bowel wall thickening with trace ascites and interloop edema. Surgical consultation is needed. 2. Hypermetabolic lesion within the region of the gastric cardia seen on the study from 01/31/2023 may correlate with an ill-defined area of soft tissue thickening within the proximal stomach on today's study. 3. Interval development of hepatic metastasis. 4. Gallbladder distention with wall thickening. Findings could be correlated with ultrasound. 5. No pneumatosis or pneumoperitoneum. 6. Left lower quadrant colostomy. 7. Additional findings as above. ACT 112: Negative or not required by law. The above report was generated using voice recognition software. It may contain grammatical, syntax or spelling errors. Electronically signed by: Velasquez Reveles M.D. 07/20/2023 4:26 PM Chest X-Ray 07/20/23 22:54 SINGLE VIEW CHEST CLINICAL HISTORY: Renal failure. FINDINGS: An AP, portable, upright chest radiograph is compared to study dated 03/27/2023. The examination is degraded by portable technique and patient rotation. The heart is enlarged noting atherosclerotic calcification of the thoracic aorta. The pulmonary vasculature is noncongested. Chronic interstitial thickening is similar to previous. There is chronic elevation of the left hemidiaphragm, with bibasilar scarring/atelectasis. No airspace consolidation or large pleural effusion is identified. A large calcified granuloma is seen at the left lung base. No pneumothorax is seen. The skeletal structures are osteopenic. The bony thorax is grossly intact. IMPRESSION: Cardiomegaly with no acute cardiopulmonary abnormality identified. ACT 112: Negative or not required by law. Electronically signed by: Rayshawn Javed M.D. 07/21/2023 7:46 AM KUB X-Ray 07/21/23 11:45 KUB HISTORY: Small bowel obstruction NGT Placement COMPARISON: CT 07/20/2023 FINDINGS: Persistent small bowel obstruction with dilated air-filled loops of small bowel measuring up to 5.6 cm. Distended stomach. The right lateral and upper abdomen are excluded from the [id number]. Distal tip of enteric tube projects over the gastric body. No renal calculi. No ureteral calculi. No pneumoperitoneum or pneumatosis. Fusion hardware of the lumbar spine with hardware present within the bilateral proximal femora. No fracture. IMPRESSION: 1. Persistent small bowel obstruction. 2. Distal tip of enteric tube projects over the distended mid gastric body. ACT 112: Negative or not required by law. The above report was generated using voice recognition software. It may contain grammatical, syntax or spelling errors. Electronically signed by: Velasquez Reveles M.D. 07/21/2023 1:40 PM I & O Totals 24 Hours 07/20/23 07/21/23 07/22/23 06:59 06:59 06:59 Intake Total 2200.000 / 2200.000 800.987 / 800.987 Output Total 1325 / 1325 Balance 2200.000 / 2200.000 -524.013 / -524.013 Cumulative 07/20/23 14:13 thru 07/21/23 11:50 Intake Total 3000.987 Output Total 1325 Balance 1675.987 RT Ventilator Mngmt (Last Documented) Ventilator Ordered Settings Respiratory Rate 34 07/21/23 12:00 Ventilator - PT Measurements Respiratory Rate 34 Coding Level of Care Code 95243 CRITICAL CARE 1ST 30-74M Diagnoses Acute mesenteric ischemia K55.059 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 C78.7 SBO (small bowel obstruction) K56.609 Primary carcinoma of lower third of esophagus C15.5 ESRD (end stage renal disease) on dialysis N18.6; Z99.2 Septic shock A41.9; R65.21
[2023-07-21] MEDS: NOREPINEPHRINE/D5W 4 MG/250 ML PLCT IV SCH (09:31)
[2023-07-21] MEDS ORDERED: STAT IV Infusion **Titration per Protocol STA (09:41)
--- NOTE | 2023-07-21 09:49 | Nephrology Consultation ---
Date of Consultation July 21, 2023 Assessment & Plan (1) ESRD (end stage renal disease) on dialysis: has AVF and gets HD --MWF for 3hrs. Currently no e/o fluid overload. In fact he is volume depleted but has lactic acidosis and high K. He is thinking of Stopping dialysis and not doing any further treatment for cancer. However wants more time for this. So will do dialysis 3 hrs today on 2k bath. NO heparin. NO meds and no UF. he is NPO and not eating so no need of renvela. to allow for dialysis patient to be moved to ICU and start on pressors and conitnue that for now. Plan discussed with primary service and also ICU attending. (2) SBO (small bowel obstruction): As per surgery needs surgery but not willing at this time. he is thinking about it. (3) Elevated lactic acid level: Likely from Low BP and SBO. 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 he already had Chemo and XRT for esophageal cancer. History of Present Illness Reason for Consultation: ESRD on dialysis admitted with SBO Attending Physician: Shira العلي MD History of Present Illness 78/M with ESRD on HD--MWF through AVF at [facility] under my care. he has known previous history of small bowel and large bowel obstructions and required laparotomy for bowel obstruction with formation of a colostomy which he still has. Patient also has known esophageal cancer. Just completed course of radiation and chemotherapy. He was deemed not a candidate for surgical intervention. Presented to the emergency room with nausea and abd pain. Imaging in the emergency room showed a high-grade small bowel obstruction most likely due to internal hernia and also evidence of liver metastasis. He states he has not had any vomiting. States that his symptoms essentially started yesterday morning. He also noted that his colostomy output has been decreasing over the last 24 hours. He is on chronic opioids for his cancer pain and also Arthritic pain. He denies any chest pain or shortness of breath. he had very low BP yesterday and even now has low BP. lactic acid is high and K is high this AM. was seen by surgery and he is thinking about what all to do. he may stop everything but wanted to have more time to come to decision. ROS--See HPI +ve for nausea and abd pain and weakness. 12 Systems otherwise negative Physical Exam Physical Exam: Constitutional: Awake Alert, mentally competent But ill in appearance, frail and cachectic HEENT: Mucous membranes slightly dry. Sclera clear Neck: Soft, no adenopathy Lungs: Clear to auscultation, decreased, no wheezes rales or rhonchi CV: S1-S2, regular Abdomen: Absent to hyperactive bowel sounds, not overly distended, no tympany, colostomy pink, no significant output Extremities: No significant edema Musculoskeletal: No significant joint tenderness Neuro: chronic left-sided weakness from previous stroke Allergies Allergy/AdvReac Type Severity Reaction Status Date / Time No Known Allergies Allergy Verified 06/15/23 09:37 Home Medications Medication Instructions Recorded Confirmed Type latanoprost 0.005 % eye drops 1 drp OPB HS 03/23/21 07/20/23 History (Xalatan) torsemide 100 mg tablet 100 mg PO QAM 05/26/22 07/20/23 History vitamin B complex-vitamin C-folic 1 tab PO QPM 09/05/22 07/20/23 History acid 0.8 mg tablet (Belinda-Moose) sennosides 8.8 mg/5 mL oral syrup 5 ml PO BID PRN Constipation 01/02/23 07/20/23 History (senna) sevelamer carbonate 800 mg tablet 800 mg PO UD 01/02/23 07/20/23 History (Renvela) omeprazole 40 mg capsule,delayed 40 mg PO QAM 03/27/23 07/20/23 History release metoprolol succinate 25 mg 12.5 mg PO QAM 07/20/23 07/20/23 History tablet,extended release 24 hr oxycodone 10 mg tablet 10 mg PO Q6H PRN Severe Pain 07/20/23 07/20/23 History (Scale Score 7-10) prochlorperazine maleate 10 mg 10 mg PO Q6H PRN Nausea And 07/20/23 07/20/23 History tablet Vomiting Patient History Medical History Preoperative cardiovascular examination Open-angle glaucoma History of stroke 05/25/22, f/u [facility] GERD (gastroesophageal reflux disease) Prostate cancer 2012, sx tx only History of nephrolithiasis Surgical History History of hip surgery (03/28/23) Left Hip Open Reduction Internal Fixation(Left) - Jaleel Giles MD Hx of local excision of skin lesion melanoma removed on face History of esophagogastroduodenoscopy (EGD) Hx of lithotripsy Hx of cataract extraction bilat. Hx of prostatectomy robotic assisted retropubic 2013 Hx of colonoscopy History of lumbar fusion Family History Mother , at 88 Stroke Father , in 60s Heart disease Brother Pancreatic cancer Brother No problems noted. Sister No problems noted. Sister No problems noted. Sister No problems noted. Sister No problems noted. Sister No problems noted. Sister No problems noted. Son No problems noted. 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 How many Children do You have: 1 Feels Safe at Home: Yes Childhood Exposure to Second-Hand Smoke: No Diet: regular Diet Comment: high protein, low potassium during the past year weight has: decreased > 10 lbs Dental Care, Regularly: No Assistive Devices: Walker Results & Data Vital Signs (Past 12 Hours) Vital Signs Temp Pulse Pulse Resp BP Pulse Ox Pulse Ox 07/21/23 09:06 80/40 L 07/21/23 08:50 88 59/54 L 07/21/23 08:37 96 H 21 65/51 L 94 07/21/23 07:25 98 H 07/21/23 03:56 36.3 C L 102 H 18 82/50 L 96 07/21/23 00:32 36.6 C 109 H 18 115/85 98 07/20/23 22:59 104 H 07/20/23 22:20 96 07/20/23 22:00 07/20/23 22:00 34.8 C L 104 H 18 94/66 L 96 O2 Del Method O2 Del Method 07/21/23 09:06 07/21/23 08:50 07/21/23 08:37 Room Air 07/21/23 07:25 07/21/23 03:56 Room Air 07/21/23 00:32 Room Air 07/20/23 22:59 07/20/23 22:20 Room Air 07/20/23 22:00 Room Air 07/20/23 22:00 Room Air Laboratory Results reviewed Diagnostic Findings Ct abd reviewed---SBO and new hepatic metastasis
[2023-07-21] MEDS: NOREPINEPHRINE/D5W 4 MG/250 ML IV ONE (09:51)
[2023-07-21] MEDS ORDERED: SODIUM CHLORIDE 0.9% 1,000 ML IV PRN (09:52)
[2023-07-21] MEDS: SODIUM CHLORIDE 0.9% 1,000 ML IV SCH (10:11)
--- NOTE | 2023-07-21 12:27 | Hospitalist Progress Note ---
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 Imaging shows high-grade small bowel obstruction. Also patient has significant lactic acidosis and elevated procalcitonin raising possibility of bacterial infection possibly due to his bowel obstruction. Septic Shock SBO ESRD on dialysis CT showing High-grade small bowel obstruction, likely secondary to an internal hernia General surgery was consulted- pt declining surgery Hypotensive requiring pressor support- pt eventually agreeable to ICU transfer for pressors Discussion with Nephrology- would like to stop dialysis Per [facility] discussion, pt and family would like to pursue comfort measures only. 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 DIGITAL COMMENTATOR at this time Continue to monitor Admission and Anticipated Discharge Date Admission Date: July 20, 2023 Subjective Pt was seen multiple times during the day. Initially awake and talking, stating he would like to talk to his family about going the comfort care route. Stated that he was thinking about stopping dialysis and cancer treatment. later family at bedside and had discussion with [facility] about employing comfort measures only. Review of Systems Review of Systems: All systems reviewed & are unremarkable except as noted in Subjective Physical Exam Physical Exam: General: Alert initially. No acute distress Psych: Appropriate mood and affect Neuro: weak, difficulty with movements HEENT: NC/AT CV: RRR Resp: Breath sounds clear bilaterally, no increased effort of breathing. Abdomen: Soft, tender Results & Data Results & Data Vital Signs (Past 12 Hours) Vital Signs Temp Pulse Pulse Resp BP Pulse Ox Pulse Ox 07/21/23 08:37 96 H 21 65/51 L 94 07/21/23 07:25 98 H 07/21/23 03:56 36.3 C L 102 H 18 82/50 L 96 07/21/23 00:32 36.6 C 109 H 18 115/85 98 07/20/23 22:59 104 H 07/20/23 22:20 96 07/20/23 22:00 07/20/23 22:00 34.8 C L 104 H 18 94/66 L 96 07/20/23 21:30 34.7 C L 110 H 14 95/61 L 98 O2 Del Method O2 Del Method 07/21/23 08:37 Room Air 07/21/23 07:25 07/21/23 03:56 Room Air 07/21/23 00:32 Room Air 07/20/23 22:59 07/20/23 22:20 Room Air 07/20/23 22:00 Room Air 07/20/23 22:00 Room Air 07/20/23 21:30 Room Air Diagnostic Findings Abdomen/Pelvis CT 07/20/23 14:[address] WITHOUT CONTRAST CT DOSE: 548.65 mGy.cm HISTORY: Acute generalized abdominal pain abdominal pain TECHNIQUE: Multiaxial CT images of the abdomen and pelvis were performed without contrast. A dose lowering technique was utilized adhering to the principles of ALARA. COMPARISON STUDY: PET/CT from outside facility 01/31/2023 without report FINDINGS: Limited exam without the use of IV contrast. Heart is upper limits of normal in size. Extensive coronary artery calcifications. Calcific granuloma in the basal left lower lobe redemonstrated. No pneumatosis or pneumoperitoneum. Diminutive unenhanced spleen is unremarkable. Moderately atrophic pancreas. Unremarkable adrenal glands. Distended gallbladder with wall thickening. Indeterminate 1.7 cm hypodense lesion of the hepatic dome on image 11 series 2, not definitively seen on the prior study. Additional ill-defined hypodense lesion of the posterior right hepatic lobe on image 15 series 2. Cortical thinning of the kidneys, right greater than left with right renal atrophy redemonstrated. Probable simple and complex cysts within the kidneys redemonstrated. These lesions however are incomplete characterized on this study. No hydronephrosis. Decompressed urinary bladder with wall thickening. The pelvic structures are not well evaluated secondary to streak artifact related to the right hip arthroplasty and left proximal femoral ORIF hardware. Atherosclerosis of the aorta. Mild nonspecific periportal lymphadenopathy. Subcentimeter periaortic and pericaval lymph nodes. Distal esophageal wall thickening. Distended air and fluid-filled stomach. The area of hypermetabolic activity within the gastric cardia on the prior study may correlate with an ill-defined area of soft tissue thickening on image 61 series 3. High-grade small bowel obstruction with dilated air and fluid-filled loops of small bowel measuring up to 4.6 cm. There is associated small bowel wall thickening with intraluminal edema. Left lower quadrant descending colostomy redemonstrated. The majority of the large bowel decompressed. A loop of large bowel within the mid lower pelvis demonstrates circumferential wall thickening with hyperemia. There is swirling of the mesentery with transition point noted on image 149 series 3 with marked narrowing of the small bowel distally to this area. No acute fracture. Degenerative and postoperative changes of the spine. IMPRESSION: 1. High-grade small bowel obstruction, likely secondary to an internal hernia. There is associated reactive small bowel wall thickening with trace ascites and interloop edema. Surgical consultation is needed. 2. Hypermetabolic lesion within the region of the gastric cardia seen on the study from 01/31/2023 may correlate with an ill-defined area of soft tissue thickening within the proximal stomach on today's study. 3. Interval development of hepatic metastasis. 4. Gallbladder distention with wall thickening. Findings could be correlated with ultrasound. 5. No pneumatosis or pneumoperitoneum. 6. Left lower quadrant colostomy. 7. Additional findings as above. ACT 112: Negative or not required by law. The above report was generated using voice recognition software. It may contain grammatical, syntax or spelling errors. Electronically signed by: Velasquez Reveles M.D. 07/20/2023 4:26 PM Chest X-Ray 07/20/23 22:54 SINGLE VIEW CHEST CLINICAL HISTORY: Renal failure. FINDINGS: An AP, portable, upright chest radiograph is compared to study dated 03/27/2023. The examination is degraded by portable technique and patient rotation. The heart is enlarged noting atherosclerotic calcification of the thoracic aorta. The pulmonary vasculature is noncongested. Chronic interstitial thickening is similar to previous. There is chronic elevation of the left hemidiaphragm, with bibasilar scarring/atelectasis. No airspace consolidation or large pleural effusion is identified. A large calcified granuloma is seen at the left lung base. No pneumothorax is seen. The skeletal structures are osteopenic. The bony thorax is grossly intact. IMPRESSION: Cardiomegaly with no acute cardiopulmonary abnormality identified. ACT 112: Negative or not required by law. Electronically signed by: Rayshawn Javed M.D. 07/21/2023 7:46 AM KUB X-Ray 07/21/23 11:45 KUB HISTORY: Small bowel obstruction NGT Placement COMPARISON: CT 07/20/2023 FINDINGS: Persistent small bowel obstruction with dilated air-filled loops of small bowel measuring up to 5.6 cm. Distended stomach. The right lateral and upper abdomen are excluded from the [id number]. Distal tip of enteric tube projects over the gastric body. No renal calculi. No ureteral calculi. No pneumoperitoneum or pneumatosis. Fusion hardware of the lumbar spine with hardware present within the bilateral proximal femora. No fracture. IMPRESSION: 1. Persistent small bowel obstruction. 2. Distal tip of enteric tube projects over the distended mid gastric body. ACT 112: Negative or not required by law. The above report was generated using voice recognition software. It may contain grammatical, syntax or spelling errors. Electronically signed by: Velasquez Reveles M.D. 07/21/2023 1:40 PM Critical Care Time I spent a total of 60 minutes of critical care time managing septic shock, discussing pt's plan of care with pt, family members, nephrology and the [facility] excluding time spent in the performance of separately billed services.
[2023-07-21] MEDS: LIDOCAINE 2% JELLY 5 ML TUBE EXT ONE (12:42)
[2023-07-21 12:46] LABS: Base Excess VBG -12.8 mEq/L; HCO3 VBG 17 mmol/L; Oxygen Saturation VBG < 60.0 %; PCO2 VBG 55 mmHg (38-50); PO2 VBG < 20 mmHg
[2023-07-21 13:21] LABS: Hematocrit (blood only) 46.1 % (42.0-52.0); Hemoglobin 14.3 g/dl (14.0-18.0)
[2023-07-21 13:27] LABS: Albumin Level 3.6 gm/dl (3.4-5.0); BUN Creatinine Ratio 13.1 (10-20); Bilirubin,Total 0.5 mg/dl (0.2-1.0); Calcium 9.4 mg/dl (8.6-10.3); Creatinine Clr Calc Pharmacy 10.7 ml/min; Est GFR (African American) 13.6 ml/min; Est GFR (Non-African American) 11.8 ml/min; Globulin 3.6 gm/dl (2.5-4.0); Potassium 6.1 mmol/L (3.5-5.1); Total Protein 7.2 gm/dl (6.0-8.3)
--- NOTE | 2023-07-21 13:41 | XRay Report ---
KUB HISTORY: Small bowel obstruction NGT Placement COMPARISON: CT 07/20/2023 FINDINGS: Persistent small bowel obstruction with dilated air-filled loops of small bowel measuring u p to 5.6 cm. Distended stomach. The right lateral and upper abdomen are excluded from the field-of-vi ew. Distal tip of enteric tube projects over the gastric body. No renal calculi. No ureteral calculi . No pneumoperitoneum or pneumatosis. Fusion hardware of the lumbar spine with hardware present withi n the bilateral proximal femora. No fracture. IMPRESSION: 1. Persistent small bowel obstruction. 2. Distal tip of enteric tube projects over the distended mid gastric body. ACT 112: Negative or not required by law. The above report was generated using voice recognition software. It may contain grammatical, syntax o r spelling errors. Electronically signed by: Velasquez Reveles M.D. 07/21/2023 1:40 PM
[2023-07-21] MEDS: MoRPHine SULFATE 2 MG/ML CARP IV PRN (17:49)
--- NOTE | 2023-07-21 18:32 | Communication Note ---
Date of Service: July 21, 2023 Received message from that patient is transitioned to comfort measures only. Will transfer patient out of ICU and order comfort care orders as req uested by her primary hospitalist.
[2023-07-21] MEDS ORDERED: ONDANSETRON 4 MG OD TAB SL PRN (18:42)
[2023-07-21] MEDS ORDERED: ONDANSETRON INJ 2 MG/ML 2 ML VIAL IV PRN (18:42)
[2023-07-21] MEDS ORDERED: ACETAMINOPHEN 325 MG TAB PO PRN (18:42)
[2023-07-21] MEDS ORDERED: MoRPHine SULFATE 10 MG/0.5 ML UDP PO PRN (18:42)
[2023-07-21] MEDS ORDERED: LORazepam 0.5 MG TAB PO PRN (18:42)
[2023-07-21] MEDS ORDERED: ATROPINE SULFATE 1% OP SOLN 5 ML BTL SL PRN (18:42)
[2023-07-21] MEDS: MoRPHine SULFATE 4 MG/ML 1 ML CARP\\VIAL IV PRN (20:09)
[2023-07-21] MEDS: LORazepam 0.5 MG in SYRINGE 0.25 ML IV PRN (22:45)
--- NOTE | 2023-07-22 00:59 | Death Pronouncement Note ---
Date of Service July 22, 2023 Pronouncement Note Admission Date July 20, 2023 Date and Time of Date of : 07/22/23 Time of : 01:02 Summary Discharge summary and certificate to be completed by Dr. العلي. Additional Data Confirmation of : no pulse, no respirations, no heart sounds and pupils fixed and dilated Attending physician: Shira العلي MD
--- OUTSIDE RECORDS SUMMARY | 2023-07-22 02:13 | External Medical Summary | Summary of Care ---
Author Name Unknown Organization [facility] Address [address] [place] [facility] [place] [address] Phone [phone] Care Team Providers Care Brush Material Preparer Name Role Phone Barrett Dacosta MD Primary Care Provider + Reason for Visit * Reason Comments Chemotherapy Taxol/Carbo [id number] * Episode Based Medications (Routine) - Closed Specialty Diagnoses / Procedures Referred By Adali t Referred To Contact Diagnoses Encounter for antineoplastic chemotherapy Esophageal adenocarcinoma (HCC) Procedures TN PALONOSETRON HCL TN CARBOPLATIN INJECTION TN PACLITAXEL INJECTION Werner Roland MD [address] [place] [address] [place] [address] Anc Hem/Onc [facility] [address] [place] [address] [place] [address] Referral ID Status Reason Start Date Expiration Date Visits Re quested Visits Authorized [id number] Closed 05/03/2023 05/03/[phone] Encounter Details Date Type Department Care Team (Latest Contact Info) Description 06/06/2023 8:30 AM EDT Hem/Onc Treatment Hematology/Oncolog y Treatment, [address] [place] [address] [place], Chair 9 Hem Onc [address] [place] [address] Encounter for antineoplastic chemotherapy*; Esophageal adenocarcinoma (HCC) Allergies No known active allergiesdocumented as of this encounter (statuses as of 07/19/2023) Medications Medication Sig Dispensed Refills Start Date [...] for Constipation. 236 mL 5 12/19/2022 Active traMADol HCl 50 MG Oral Tablet (Ultram)Indications: MEDICATION USE AGREEMENT,Status post lumbar spinal fusion,Chronic bilateral low back pain, unspecified whether sciatica present Take 2 Tablets by mouth every 6 hours as needed for Pain, Severe. 240 Tablet 0 01/23/2023 Active Sevelamer Carbonate 800 MG Oral Tablet (Renvela) TAKE 1 TABLET BY MOUTH THREE TIMES A DAY WITH MEALS 0 01/31/2023 Active Torsemide 100 MG Oral Tablet (Demadex) Take 1 Tablet by mouth in the morning. 0 03/27/2023 Active Vitamin D3 50 MCG (2000 UT) Oral CapsuleIndications:S /p left hip fracture Take 1 Capsule by mouth in the morning. 90 Capsule 3 04/11/2023 Active Omeprazole 40 MG Oral Capsule Delayed Release (PriLOSEC) Take 1 Capsule by mouth in the morning. 90 Capsule 3 04/11/2023 Active Naproxen Sodium 220 MG Oral Capsule (Aleve) Take 1 Capsule by mouth 2 times a day with morning and evening meals. 0 Active Ondansetron HCl 8 MG Oral Tablet (Zofran)Indications: Esophageal adenocarcinoma (HCC) Take 1 Tablet by mouth every 8 hours as needed for Nausea. 30 Tablet 2 05/03/2023 Active Prochlorperazine Maleate 10 MG Oral Tablet (Compazine)Indicatio ns:Esophageal adenocarcinoma (HCC) Take 1 Tablet by mouth every 6 hours as needed for Nausea. 30 Tablet 2 05/03/2023 Active oxyCODONE HCl 10 MG Oral Tablet (Roxicodone)Indicati ons:S/p left hip fracture,Esophageal adenocarcinoma (HCC) Take 1 Tablet by mouth every 6 hours as needed for Pain, Severe or Pain, Moderate. 120 Tablet 0 05/15/2023 4 Discontinue d(Refill) documented as of this encounter (statuses as of 07/19/2023) Active Problems Problem Noted Date Diagnosed Date Esophageal adenocarcinoma 05/02/2023 Encounter for antineoplastic chemotherapy 2023 Malignant neoplasm of esophagus 04/11/2023 S/p left hip fracture 04/11/2023 Protein-calorie malnutrition 03/09/2023 Hemiplegia and hemiparesis f [...] left vertebral artery 06/03/2022 Overview: 05/26 CTA [facility] Type 2 diabetes mellitus wit h chronic [...] grade dysplasia (? Cancer--sent to [facility] for review)/esophagitis, martha 4 wk. CVA 05/26 [facility]. Left sided weakness. 05/26 TTE [facility] normal EF Grade 2 Farmer Dys. Moderate [...] as of this encounter (statuses as of 07/19/2023) Resolved Problems Problem Noted Date Diagnosed Date [...] as of this encounter (statuses as of 07/19/2023) Immunizations Name Administration Dates Next Due COVID-19 mRNA, LNP-s, No Pre serve, 2-Dose Series ([employer]) 02/20/2021,06/17/2020,05/26/2020 COVID-19, MRNA-LNP, 23-24, P F, 30 MCG/0.3 mL, 12 YRS AND ABOVE, IM ([employer]) 01/06/2023 Covid-19, Mrna, Lnp-s, Pf, B ivalent, 30 Mcg, IM, 12 yrs and above ([employer]) 12/24/2021 Hepatitis B Vaccine, Recombi nant, Adjuvanted, [...] on file documented as of this encounter Nursing Notes * Yari Cobb RN - 06/06/2023 2:55 PM EDT Pt completed treatment without issues. IV removed. Goals: Pt will remain free from injury. Possible barriers to meeting goals: pt is a high fall risk Stability of the patient: Moderately stable - low risk of patient condition declining or worsening Summary regarding today's goals: Met: Pt remained free from injury during treatment today. Discharged in stable condition. JF assisted. * Yari Cobb RN - 06/06/2023 8:52 AM EDT Chair 10 Chemotherapy/Immunotherapy agents: CARBOPLATIN and TAXOL Consent for chemotherapy drug treatment complete, dated, and signed? yes, date - 05/02/23 Treatment lab parameters met? Yes Pt seen by Maribel CENTENO; labs reviewed with martin Lane to proceed with treatment Has treatment weight changed > than 10%? No Treatment preauthorized? Yes VITALS There were no vitals filed for this visit. Urine protein: N/A Patient education completed for treatment? Yes Blood transfusion consent signed and complete? NA Return appointment scheduled? Yes Patient had provider visit today? Yes - Ok to release order and treat per provider PIV established; NSS infusing. Per Maribel CENTENO, pt will be scheduled for 1 more treatment next week (pt has 3 days of RT next week, Mon-Wed). Pt will go for labs day prior; nursing will notify pt if treatment is cancelled due to lab results. Safety and Risk for Injury Patient will remain free from injury. Ensure appropriate safety devices are available. Provide and maintain safe environment. Functional Status: Functional status at today's visit: Capable of only limited selfcare, confined to bed or chair more than 50% of waking hours The drug name, dose, infusion volume, rate and route of administration, expiration date and time, appearance and physical integrity of the drug and rate set on the pump and sequencing of drug administration (as applicable) were verified by me and second sign-in RN. Patient was assessed for symptoms or adverse side effects during treatment. documented in this encounter Plan of Treatment Upcoming Encounters Date Type Department Care Team (Late st Contact Info) Description 07/28/2023 2:15 PM EDT Office Visit Hematology/Oncology [facility] [address] [facility] [address] [phone] Werner Roland MD [address] [facility] [place] [address] 01/11/2024 8:00 AM EST Office Visit [facility] [address] [place] [place] [address] Barrett Dacosta MD [address] [place] [address] 01/23/2024 11:00 AM EST Telemedicine Neurosurgery, [place] [address] [place] [address] Earle Murphy MD [address] [place] [address] 07/18/2024 10:00 AM EDT Office Visit [facility] [address] [place] [address] Barrett Dacosta MD [address] [place] [address] Scheduled Procedures Name Priority Associated Diagnoses Date/Ti me COLONOSCOPY, FLEXIBLE; WITH ENDOSCOPIC MUCOSAL RESECTION Recall History of colonic polyps Health Maintenance Due Date Last Done Comments DTaP,Tdap,and Td Vaccines (3 - Td or Tdap) 11/18/2020 11/18/2010, 01/05/2010 Diabetic Foot Exam 03/01/2023 03/01/2022, 1 04/21/2020, 02/14/2020, Additional history exists HbA1c 07/13/2023 01/12/2023, 05/2022, 08/16/2021, Additional history exists Depression Screening 09/02/2023 09/01/2022, 11/09/2016 (Declined) Diabetic Eye Exam 11/23/2023 11/22/2022 (Do ne elsewhere), 07/26/2022 (Done elsewhere), 07/26/2022, Additional history exists Pneumococcal Vaccine: 65+ Years Completed 08/05/2015, 11/06/2013, 01/05/2010 Colonoscopy Discontinued 05/03/2018, 04/07, 07/20/2012, Additional history exists Zoster Vaccines Completed 08/20/2019, 03/07, 11/19/2011 Albumin/Creatinine [...] as of this encounter Visit Diagnoses Diagnosis Encounter for antineoplastic chemotherapy- Primary Esophageal adenocarcinoma (HCC) Malignant neoplasm of esophagus, unspecified site documented in this encounter Administered Medications Inactive Administered Medications - up to 3 most recent administrations Medication Order MAR Action Action Date Dose Rate Site CARBOplatin (Paraplatin) 101 mg in D5W 250 mL infusion 101 mg (rounded from 100.6 mg, Target AUC = 2), IV Piggyback, at 500 mL/hr Administer over 30 Minutes, PROTECT FROM LIGHT, ONCE, 1 dose, On Mon06/06/23 at 1030 Start Infusion 06/06/2023 10:50 AM EDT 101 mg 500 mL/hr dexAMETHasone (Decadron) tab 12 mg 12 mg, Oral, ONCE, On Mon06/06/23 at 1000, For 1 dose Given 06/06/2023 9:11 AM EDT 12 mg diphenhydrAMINE (Benadryl) 25 mg in NSS 50 mL ivpb 25 mg, IV Piggyback, ONCE, 1 dose, On Mon06/06/23 at 0930 Start Infusion 06/06/2023 9:23 AM EDT 25 mg 200 mL/hr Famotidine (Pepcid) tab 20 mg 20 mg, Oral, ONCE, On Mon06/06/23 at 1000, For 1 dose Given 06/06/2023 9:11 AM EDT 20 mg NSS infusion Intravenous, at 50 mL/hr, PRN, Starting on Mon06/06/23 at 1000, Until Mon06/06/23 at 1857, Maintenance line Start Infusion 06/06/2023 9:01 AM EDT 50 mL/hr PACLitaxel (Taxol) 84 mg in NSS 250 mL infusion 84 mg (50 mg/m2 1.68 m2 Treatment Plan BSA from Recorded weight), IV Piggyback, at 250 mL/hr Administer over 60 Minutes, Administer through 0.22 micron low protein binding filter!, ONCE, 1 dose, On Mon06/06/23 at 1030 Start Infusion 06/06/2023 9:42 AM EDT 84 mg 250 mL/hr Palonosetron (Aloxi) inj SOLN 0.25 mg 0.25 mg, IV Push, ONCE, On Mon06/06/23 at 1000, For 1 dose, Restricted per GHS antiemetic guidelines Given 06/06/2023 9:11 AM EDT 0.25 mg documented in this encounter Advance Directives Documents on File Type Date Recorded Patient Technical Applications Scientist Expl anation POLST 03/23/2023 4:05 PM POLST [...] patient or by statute hierarchy) Care Teams Brush Material Preparer Relationship Specialty Start Date End Date Barrett Dacosta MD [address] [place] [address] PCP - General Family Medicine 04/11/18 documented as of this encounter
--- OUTSIDE RECORDS SUMMARY | 2023-07-22 02:13 | External Medical Summary | Continuity of Care Document ---
Author Name Unknown Organization [id number] Address [address] [place] [phone] Care Team Providers Care Mainframe Programmer Name Role Phone Barrett Dacosta Primary Care Physician [phone] [facility]counter [facility] [id number] Date(s): 07/10/23 - 07/10/23 [facility] [address] [place] [id number] [facility] [address] [place] [id number] Encounter Diagnosis Hip fracture, left(Discharge Diagnosis) - 07/10/23 Left hip pain(Discharge Diagnosis) - 07/10/23 Discharge Disposition: Home or Self Care Attending Physician: MD Giles Wayne J Allergies, Adverse Reactions, Alerts No Known Medication Allergies Medications doxycycline hyclate 100 mg oral capsule Start: 04/13/23 13:57:00 EST, 1 cap, PO, Daily Start Date: 04/13/23 Status: Ordered latanoprost 0.005% ophthalmic solution Start: 12/20/22 15:40:00 EDT Start Date: 12/20/22 Status: Ordered Metoprolol Succinate ER 25 mg oral tablet, extended release Start: 12/20/22 15:40:00 EDT Start Date: 12/20/22 Status: Ordered omeprazole 40 mg oral delayed release capsule Start: 12/20/22 15:40:00 EDT Start Date: 12/20/22 Status: Ordered Belinda-Moose oral tablet Start: 12/20/22 15:40:00 EDT Start Date: 12/20/22 Status: Ordered sevelamer carbonate 800 mg oral tablet Start: 12/20/22 15:42:00 EDT Start Date: 12/20/22 Status: Ordered traMADol 50 mg oral tablet Start: 12/20/22 15:40:00 EDT Start Date: 12/20/22 Status: Ordered Mental Status 07/10/23 Barriers to Learning one year None evide nt Mandatory Health Literacy Documentation Yes Health Literacy Communication Barriers N ever Primary Language Sami Problem List Condition Confirmation Course Effective Dates Status H ealth Status Informant Fracture of left hip due to osteoporosis Confirmed Active S/P hip hemiarthroplasty Confirmed Active Diagnosis Diagnosis Type Effective Dates Health Status Cl inical Service Informant Hip fracture, left Discharge Diagnosis 07/10/23 Non-Specified Left hip pain Discharge Diagnosis 07/10/23 Non-Specified Social History Social History Type Response Smoking Status Never smoked cigaret shahid Sex Male Ortho Outpt Note * Betzaida Serrano: PERFORM, MODIFY Event Display: Ortho Outpt Note Authored Date: [id number] Name:GUILLERMO ALEJANDRO Patient Number:[id number] :1945 Date of Service:07/10/2023 CHIEF COMPLAINT: Follow-up s/p left hip fracture ORIF with a trochanteric nail; DOS: 03/28/2023 HPI: [id number] [facility] presents today forfollow-up s/p the above notedprocedure. Patient reports he continues to ambulate well with a walker. He complains of generalpain and discomfort on the lateral hip around the incision site with walking. He is making sure he hasa diet high in calcium. Hehas chemotherapy and radiationfor his esophagus with upcoming PET scan. PHYSICAL EXAM: Focus on the left lower extremity: Femoral and sciatic nerve function intact. Supple hip rotation 4/5 strength hip flexion and abduction DIAGNOSTIC REVIEW: I obtained and personally interpreted 3 viewsof the pelvis/left hip which shows stable fixation of hip fracture with intertrochanteric nail with good union developing. No sign of hardware loosening. IMPRESSION: 3.5 months s/p left hip fracture ORIF with trochanteric nail w/ history of osteoporosis PLAN: Continue with HEP and strengthening Use ambulatory devices for balance Continue with high calcium diet Follow-up in3 months with x-rays ATTESTATION: Betzaida Godinez, scribing for and in the presence of, Jaleel Giles on this date,07/10/2023 11:01:20. Electronic Signature on File Electronically Reviewed/Signed by: Betzaida Serrano Author Signature Dt/Tm:07/10/2023 11:08 AM Electronically Reviewed/Signed by: MD Penny Woods Signature Dt/Tm: 07/10/2023 11:24 AM Medical Leader for Clinical Affairs, [facility] Alliance Professor in Orthopaedics Manager Alliance, [facility] [place] Patient Care team information Care Team Personnel Name: MD Praneeth, Barrett Fitzpatrick Position: Referring DIRECT Member Role: Primary Care Provider Address: Address: [address] [place] [address]
--- OUTSIDE RECORDS SUMMARY | 2023-07-22 02:13 | External Medical Summary | Summary of Care ---
Author Name Unknown Organization [facility] Address [address] [facility] [place] [address] Phone [phone] Care Team Providers Care Size Stamper Name Role Phone Barrett Weathers MD Primary Care Provider + Reason for Visit * Reason Onset Date Comments Medication Refill 07/19/2023 Encounter Details Date Type Department Care Team (Late st Contact Info) Description 07/19/2023 Refill Family Practice [facility] [address] [place] [address] Barrett Weathers MD [address] [place] [address] S/p left hip fracture; Esophageal adenocarcinoma (HCC) Allergies No known active [...] for Constipation. 236 mL 5 12/19/2022 Active Sevelamer Carbonate 800 MG Oral Tablet (Renvela) TAKE 1 TABLET BY MOUTH THREE TIMES A DAY WITH MEALS 0 01/31/2023 Active Torsemide 100 MG Oral Tablet (Demadex) Take 1 Tablet by mouth in the morning. 0 03/27/2023 Active Vitamin D3 50 MCG (2000 UT) Oral CapsuleIndications: S/p left hip fracture Take 1 Capsule by [...] Active Ondansetron HCl 8 MG Oral Tablet (Zofran)Indications :Esophageal adenocarcinoma (HCC) Take 1 Tablet by mouth every 8 hours as needed for Nausea. 30 Tablet 2 05/03/2023 Active Prochlorperazine Maleate 10 MG Oral Tablet (Compazine)Indicati ons:Esophageal adenocarcinoma (HCC) Take 1 Tablet by mouth every 6 hours as needed for Nausea. 30 Tablet 2 05/03/2023 Active dexAMETHasone 4 MG Oral Tablet (Decadron)Indicatio ns:Esophageal adenocarcinoma (HCC) Take 3 tablets (12mg) the night before and morning of treatment 6 Tablet 0 06/06/2023 Active Fluticasone Propionate 50 MCG/ACT Nasal Suspension (Flonase)Indication s:Sinus congestion Administer 2 Sprays into each nostril in the morning and 2 Sprays before bedtime. 18 g 5 06/29/2023 Active oxyCODONE HCl 10 MG Oral Tablet (Roxicodone)Indicat ions:S/p left hip fracture,Esophageal adenocarcinoma (HCC) Take 1 Tablet by mouth every 6 hours as needed for Pain, Severe or Pain, Moderate. 120 Tablet 0 07/19/2023 Active traMADol HCl 50 MG Oral Tablet (Ultram)Indications :MEDICATION USE AGREEMENT,Status post lumbar spinal fusion,Chronic bilateral low back pain, unspecified whether sciatica present Take 2 Tablets by mouth every 6 hours as needed for Pain, Severe. 240 Tablet 0 01/23/2023 4 Discontinue d(Medicatio n List Clean Up) oxyCODONE HCl 10 MG Oral Tablet (Roxicodone)Indicat ions:S/p left hip fracture,Esophageal adenocarcinoma (HCC) Take 1 Tablet by mouth every 6 hours as needed for Pain, Severe or Pain, Moderate. 120 Tablet 0 06/17/2023 4 Discontinue d(Refill) documented as of this [...] + high grade dysplasia (? Cancer--sent to [facility] for review)/esophagitis, martha 4 wk. CVA 05/26 [facility]. Left sided weakness. 05/26 TTE [facility] normal EF Grade 2 Farmer Dys. Moderate AV sclerosis and calcified mitral valve--stenosis + mod MR.mild MS. No shunt. 04/24 colon-polyp tubular adenoma. Declined f/u. 2012 adenoma. 08/18 TTE-possilbe vegetation. Mild LVH History of prostate cancer 01/09/2013 Overview: S/p resection Dr White[facility] HTN, goal below 140/90 06/04/2012 Gout 06/04/2012 [...] mRNA, LNP-s, No Pre serve, 2-Dose Series ([employer]) 02/20/2021,06/17/2020,05/26/2020 COVID-19, MRNA-LNP, 23-24, P F, 30 MCG/0.3 mL, 12 YRS AND ABOVE, IM ([employer]) 01/06/2023 Covid-19, Mrna, Lnp-s, Pf, B ivalent, 30 Mcg, IM, 12 yrs and above ([employer]) 12/24/2021 Hepatitis B Vaccine, Recombi nant, Adjuvanted, [...] Miscellaneous Notes * Telephone Encounter - Barrett Weathers MD - 07/19/2023 10:35 PM EDT Signed Prescriptions: Disp Refills oxyCODONE HCl 10 MG Oral Tablet (Roxicodon*120 Ta*0 Sig: Take 1 Tablet by mouth every 6 hours as needed for Pain, Severe or Pain, Moderate. Authorizing Provider: BARRETT WEATHERS * Telephone Encounter - Josette Hsu RN - 07/19/2023 4:09 PM EDT Did you pend patient's preferred pharmacy and medication before forwarding?yes Pharmacy: [id number] Pending Prescriptions: Disp Refills oxyCODONE HCl 10 MG Oral Tablet (Roxicodo*120 Ta*0 Sig: Take 1 Tablet by mouth every 6 hours as needed for Pain, Severe or Pain, Moderate. Last Visit: 06/29/2023 (in office), 10/02/2019 (telemedicine) Next Visit: 01/11/2024 If no future appointments scheduled, and last appointment is greater than a year ago, please schedule patient for a follow-up appointment Last date the medication was ordered: Is this request for a controlled substance? yes Urine Drug Screen: Results for orders placed or performed in visit on 02/18/21 PAIN MANAGEMENT DRUG PANEL, URINE W/ INTERPRETATION Result Value Compliance Interpretation Based on the medication information provided: The positive oxycodone screening result is CONSISTENT with oxycodone use. Confirmatory testing is available upon request. Amphetamines Screen, U Negative Benzodiazepines Screen, U Negative Cannabinoids Screen, U Negative Cocaine Metabolite Screen, U Negative Hydrocodone Screen, U Negative Methadone Metabolite Screen, U Negative Morphine/Codeine Screen, U Negative Oxycodone Screen, U Positive (A) Valid Interpretation Normal Creatinine, U 17 Specific [place], U 1.0063 Narrative Cutoff Concentrations: Drug Level Amphetamines [...] RESULTS REFLEX TO CONFIRMATORY TESTING. Cutoff Concentration *Note: Due to a large number of results and/or encounters for the requested time period, some results have not been displayed. A complete set of results can be found in Results Review. Patient Phone Numbers Labs: Lab Results Component Value Date/Time CREAT 1.8 (H) 06/12/2023 08:42 AM CREAT 4.28 (H) 12/09/2022 12:00 AM CREAT 1.8 (H) 02/14/2020 02:41 PM POTASSIUM 3.9 06/12/2023 08:42 AM POTASSIUM 3.7 12/09/2022 12:00 AM POTASSIUM 5.0 02/14/2020 02:41 PM TSH 1.79 03/08/2022 08:33 AM LDLCALC 68 08/11/2020 09:49 AM LDLCALC 73 09/24/2019 08:07 AM LDLDIRECT 64 01/12/2023 09:37 AM LDLDIRECT NOT APPLICABLE 09/24/2019 08:07 AM ALT 6 (L) 06/12/2023 08:42 AM ALT 23 11/19/2019 12:56 PM HGBA1C 4.9 01/12/2023 09:37 AM HGBA1C 5.6 11/19/2019 12:56 PM documented in this encounter Plan of Treatment Upcoming Encounters Date Type Department Care Team (Late st Contact Info) Description 07/28/2023 2:15 PM EDT Office Visit Hematology/Oncology [facility] [address] [place] [address] Werner Roland MD [address] [place] [address] 01/11/2024 8:00 AM EST [facility] [place] [address] Barrett Weathers MD [address] [facility] [place] [address] 01/23/2024 11:00 AM EST Telemedicine [facility] [place] [address] [place] [address] Earle Murphy MD [address] [place] [address] 07/18/2024 10:00 AM EDT Office Visit [facility] [address] [place] [address] Barrett Weathers MD [address] [place] [address] Scheduled Procedures Name Priority Associated Diagnoses Date/Ti me COLONOSCOPY, FLEXIBLE; WITH ENDOSCOPIC MUCOSAL RESECTION Recall History of colonic polyps Health Maintenance Due Date Last Done Comments DTaP,Tdap,and Td Vaccines (3 - Td or Tdap) 11/18/2020 11/18/2010, 01/05/2010 Diabetic Foot Exam 03/01/2023 03/01/2022, 1 04/21/2020, 02/14/2020, Additional history exists HbA1c 07/13/2023 01/12/2023, 0105/2022, 08/16/2021, Additional history exists Depression Screening 09/02/2023 09/01/2022, 11/09/2016 (Declined) Diabetic Eye Exam 11/23/2023 11/22/2022 (Do ne elsewhere), 07/26/2022 (Done elsewhere), 07/26/2022, Additional history exists Pneumococcal Vaccine: 65+ Years Completed 08/05/2015, 11/06/2013, 01/05/2010 Colonoscopy Discontinued 05/03/2018, 04/07, 07/20/2012, Additional history exists Zoster Vaccines Completed 08/20/2019, 03/07, 11/19/2011 Albumin/Creatinine Ratio Discontinued 2 022, 09/24/2019, 04/01/2019, Additional history exists Nephrology [...] as of this encounter Visit Diagnoses Diagnosis S/p left hip fracture Esophageal adenocarcinoma (HCC) Malignant neoplasm of esophagus, unspecified site documented in this encounter Advance Directives Documents on File Type Date Recorded Patient Pig Machine Supervisor Expl anation POLST 03/23/2023 4:05 PM POLST [...] Code 01/07/2013 12:35 PM 01/09/2013 3:16 PM Thi s order reflects the patients wishes and were consensually agreed upon. Question Answer Comments Discussion of Advance Directives occurred with: Not Discussed Healthcare Agents on File Name Relationship Healthcare Agent Relationshi p Communication Jacklyn Cason Spouse Health Care Repr esentative (appointed verbally by patient or by statute hierarchy) Care Teams Size Stamper Relationship Specialty Start Date End Date Barrett Weathers MD [address] [place] [address] PCP - General Family Medicine 04/11/18 documented as of this encounter
--- OUTSIDE RECORDS SUMMARY | 2023-07-22 02:14 | External Medical Summary | Summary of Care ---
Author Name Unknown Organization [facility] Address [address] [place] [address] Phone [phone] Care Team Providers Care Coroner Transport Technician Name Role Phone Barrett Dacosta MD Primary Care Provider + Reason for Visit * Reason Comments Chemotherapy C1/D1 - Taxol/Carbop latin * Episode Based Medications (Routine) - Closed Specialty Diagnoses / Procedures Referred By Adali t Referred To Contact Diagnoses Encounter for antineoplastic chemotherapy Esophageal adenocarcinoma (HCC) Procedures [place] PALONOSETRON HCL [place] CARBOPLATIN INJECTION [place] PACLITAXEL INJECTION Werner Roland MD [address] [place] [address] [place] [address] Anc Hem/Onc [facility] [address] [place] [address] [place] [address] Referral ID Status Reason Start Date Expiration Date Visits Re quested Visits Authorized [id number] Closed 05/03/2023 05/03/[phone] Encounter Details Date Type Department Care Team (Latest Contact Info) Description 05/09/2023 1:00 PM EST Hem/Onc Treatment Hematology/Oncolog y Treatment, [address] [place] [address] [place], Chair 6 Hem Onc [address] [place] [address] Encounter for antineoplastic chemotherapy*; Esophageal adenocarcinoma (HCC) Allergies No known active allergiesdocumented as of this encounter (statuses as of 07/08/2023) Medications Medication Sig Dispensed Refills Start Date [...] 0 03/27/2023 Active Vitamin D3 50 MCG (1999 UT) Oral CapsuleIndications:S /p left hip fracture [...] 05/03/2023 Active dexAMETHasone 4 MG Oral Tablet (Decadron)Indication s:Esophageal adenocarcinoma (HCC) Take 3 tablets (12mg) the night before and morning of treatment 36 Tablet 0 05/03/2023 Discontinue d(Refill) oxyCODONE HCl 5 MG Oral Tablet (Oxy IR)Indications:Malig nant neoplasm of esophagus, unspecified location (HCC),Status post lumbar spinal fusion Take 1 Tablet by mouth every 4 hours as needed for Pain, Moderate or Pain, Severe. 120 Tablet 0 05/03/2023 Discontinue d(Medicatio n/Dose Changed) documented as of this encounter (statuses as of 07/08/2023) Active Problems Problem Noted Date Diagnosed Date [...] + high grade dysplasia (? Cancer--[place] [facility] [place]esophagitis, martha 4 wk. CVA 05/26 [facility]. Left sided weakness. 05/26 TTE [facility] normal EF Grade 2 Farmer Dys. Moderate AV sclerosis and calcified mitral valve--stenosis + mod MR.mild MS. No shunt. 04/24 colon-polyp tubular adenoma. Declined f/u. 2012 adenoma. 08/18 TTE-possilbe vegetation. Mild LVH History of prostate cancer 01/09/2013 Overview: S/p resection Dr [facility] [place], goal below 140/90 06/04/2012 Gout 06/04/2012 Overview: 07/18 indomethicin non-form documented as of this encounter (statuses as of 07/08/2023) Resolved Problems Problem Noted Date Diagnosed Date [...] as of this encounter (statuses as of 07/08/2023) Immunizations Name Administration Dates Next Due COVID-19 mRNA, LNP-s, No Pre serve, 2-Dose Series ([employer]) 02/20/2021,06/17/2020,05/26/2020 COVID-19, MRNA-LNP, 23-24, P F, 30 MCG/0.3 mL, 12 YRS AND ABOVE, IM ([facility]) 01/06/2023 Covid-19, Mrna, Lnp-s, Pf, B ivalent, [...] Sign Reading Time Taken Comments Blood Pressure 153/79 05/09/2023 1:05 PM EST Pulse 80 05/09/2023 1:05 PM EST Temperature 36.6 C (97.8 F) 05/09/2023 1:05 PM ES T Respiratory Rate 18 05/09/2023 1:05 PM EST Oxygen Saturation 95% 05/09/2023 1:05 PM EST Inhaled Oxygen Concentration - - Weight 58.2 kg (128 lb 6.4 oz) 05/09/2023 1:05 P M EST Height - - Body Mass Index 20.72 02/16/2023 12:15 PM EST documented in this encounter Nursing Notes * Bertha Sauceda, RN - 05/09/2023 4:01 PM EST Chair 8. Patient presents today for first cycle of chemotherapy. Patient was educated about establishing IV access, giving premeds, taking PRN home medications, process of getting medication from pharmacy, layout of treatment room, use of call rubio, etc. Patient communicated understanding and denied any further questions, concerns, needs. Chemotherapy/Immunotherapy agents: CARBOPLATIN and TAXOL Consent for chemotherapy drug treatment complete, dated, and signed? yes, date - 05/02/2023 Treatment lab parameters met? Yes Has treatment weight changed > than 10%? No Treatment preauthorized? Yes VITALS Filed Vitals: 05/09/23 1305 BP: 153/79 Pulse: 80 Resp: 18 Temp: 36.6 C (97.8 F) TempSrc: Tympanic SpO2: 95% Weight: 58.2 kg (128 lb 6.4 oz) Urine protein: N/A Patient education completed for treatment? Yes Blood transfusion consent signed and complete? NA Return appointment scheduled? Yes Patient had provider visit today? No - If no provider visit must complete Pretreatment Assessment Functional Status: Functional status at today's visit: Ambulatory and capable of all selfcare but unable to carry out any work activities. Up and about more than 50% of waking hours The drug name, dose, infusion volume, rate and route of administration, expiration date and time, appearance and physical integrity of the drug and rate set on the pump and sequencing of drug administration (as applicable) were verified by me and second sign-in RN. Patient was assessed for symptoms or adverse side effects during treatment. PRE-TREATMENT ASSESSMENT: NEURO: denies symptoms CV/RESP: denies symptoms GI/: decreased appetite: Patient struggles to eat, but does eat softer foods and has founds ways to makecertain dry foods easier to swallow, adds a lot of protein when he is able to in order to get protein and calories into diet -- decreased appetite d/t tumor location OTHER: denies any additional symptoms PAIN: 0 -- took pain meds before coming in here today. RAD/ONC: came from radiation today, daily x5 weeks per patient Patient has dialysis every M, W, F. Patient will get labs done the day before his chemo treatments after his dialysis tx on Mondays. Safety and Risk for Injury Patient will remain free from injury. Ensure appropriate safety devices are available. Provide and maintain safe environment. Goals: Patient will remain free from injury. Possible barriers to meeting goals: ambulating with IV pole, use of wheelchair, hx of stroke Stability of the patient: Moderately stable - low risk of patient condition declining or worsening Summary regarding today's goals: Met: pt remained free of harm today Patient tolerated treatment well without any acute issues or problems. Patient left facility in stable condition and denied any further needs. documented in this encounter Plan of Treatment Upcoming Encounters Date Type Department Care Team (Late st Contact Info) Description 07/17/2023 12:45 PM EDT Imaging Radiology [address] [place] [address] 07/28/2023 2:15 PM EDT Office Visit Hematology/Oncology [facility] [address] [facility] [place] [address] Werner Roland MD [address] [facility] [place] [address] 01/11/2024 8:00 AM EST Office Visit [facility] [address] [place] [address] Barrett Dacosta MD [address] [place] [address] 01/23/2024 11:00 AM EST Telemedicine Neurosurgery, [place] [address] [place] [address] Earle Murphy MD [address] [place] [address] 07/18/2024 10:00 AM EDT Office Visit [facility] [address] [place] [address] Barrett Dacosta MD [address] [place] [address] Scheduled Procedures Name Priority Associated Diagnoses Date/Ti [...] Action Date Dose Rate Site CARBOplatin (Paraplatin) 91 mg in D5W 250 mL infusion 91 mg (Target AUC = 2), IV Piggyback, at 500 mL/hr Administer over 30 Minutes, PROTECT FROM LIGHT, ONCE, 1 dose, On Mon05/09/23 at 1515 Start Infusion 05/09/2023 3:21 PM EST 91 mg 500 mL/hr dexAMETHasone (Decadron) tab 12 mg 12 mg, Oral, ONCE, On Mon05/09/23 at 1445, For 1 dose Given 05/09/2023 1:47 PM EST 12 mg diphenhydrAMINE (Benadryl) 25 mg in NSS 50 mL ivpb 25 mg, IV Piggyback, ONCE, 1 dose, On Mon05/09/23 at 1415 Start Infusion 05/09/2023 1:50 PM EST 25 mg 200 mL/hr Famotidine (Pepcid) tab 20 mg 20 mg, Oral, ONCE, On Mon05/09/23 at 1445, For 1 dose Given 05/09/2023 1:47 PM EST 20 mg NSS infusion Intravenous, at 50 mL/hr, PRN, Starting on Mon05/09/23 at 1445, Until Mon05/09/23 at 2010, Maintenance line Start Infusion 05/09/2023 1:48 PM EST 50 mL/hr PACLitaxel (Taxol) 84 mg in NSS 250 mL infusion 84 mg (50 mg/m2 1.68 m2 Treatment Plan BSA from Recorded weight), IV Piggyback, at 250 mL/hr Administer over 60 Minutes, Administer through 0.22 micron low protein binding filter!, ONCE, 1 dose, On Mon05/09/23 at 1515 Start Infusion 05/09/2023 2:13 PM EST 84 mg 250 mL/hr Palonosetron (Aloxi) inj SOLN 0.25 mg 0.25 mg, IV Push, ONCE, On Mon05/09/23 at 1445, For 1 dose, Restricted per S antiemetic guidelines Given 05/09/2023 1:47 PM EST 0.25 mg documented in this encounter Advance Directives Documents on File Type Date Recorded 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
--- OUTSIDE RECORDS SUMMARY | 2023-07-22 02:14 | External Medical Summary | Summary of Care ---
Author Name Unknown Organization [facility] Address [address] [place] [address] Phone [phone] Care Team Providers Care Chemical Maker Name Role Phone Barrett Dacosta MD Primary Care Provider + Reason for Visit * Reason Comments Chemotherapy C1/D1 - Taxol/Carbop latin * Episode Based Medications (Routine) - Closed Specialty Diagnoses / Procedures Referred By Adali t Referred To Contact Diagnoses Encounter for antineoplastic chemotherapy Esophageal adenocarcinoma (HCC) Procedures [place] PALONOSETRON HCL [place] CARBOPLATIN INJECTION [place] PACLITAXEL INJECTION Werner Roland MD [address] [place] [address] [place] [address] Anc Hem/Onc [facility] [address] [place] [address] [place] [address] Referral ID Status Reason Start Date Expiration Date Visits Re quested Visits Authorized [id number] Closed 05/03/2023 05/03/[phone] Encounter Details Date Type Department Care Team (Latest Contact Info) Description 05/09/2023 1:00 PM EST Hem/Onc Treatment Hematology/Oncolog y Treatment, [address] [place] [address] [place], Chair 6 Hem Onc [address] [place] [address] Encounter for antineoplastic chemotherapy*; Esophageal adenocarcinoma [...] 01/09/2013 Overview: S/p resection Dr [facility] [place], [...] mRNA, LNP-s, No Pre serve, 2-Dose Series ([employer]) 02/20/2021,06/17/2020,05/26/2020 COVID-19, MRNA-LNP, 23-24, P F, 30 MCG/0.3 mL, 12 YRS AND ABOVE, IM ([facility]) 01/06/2023 Covid-19, Mrna, Lnp-s, Pf, B ivalent, [...] Description 07/17/2023 12:45 PM EDT Imaging Radiology [address] [place] [address] 07/28/2023 2:15 PM EDT Office Visit Hematology/Oncology [facility] [address] [facility] [place] [address] Werner Roland MD [address] [facility] [place] [address] 01/11/2024 8:00 AM EST Office Visit [facility] [place] [address] [address] Barrett Dacosta MD [address] [place] [address] 01/23/2024 11:00 AM EST Telemedicine Neurosurgery, [place] [address] [place] [address] Earle Murphy MD [address] [place] [address] 07/18/2024 10:00 AM EDT Office Visit [facility] [place] [address] [place] [address] Barrett Dacosta MD [address] [place] [address] Scheduled Procedures Name Priority Associated Diagnoses Date/Ti [...] Documents on File Type Date Recorded Patient Cytogenetic Technologist Expl anation POLST 03/23/2023 4:05 PM POLST [...] patient or by statute hierarchy) Care Teams Chemical Maker Relationship Specialty Start Date End Date Barrett Dacosta MD [address] [place] [address] PCP - General Family Medicine 04/11/18 documented as of this encounter
--- OUTSIDE RECORDS SUMMARY | 2023-07-22 02:14 | External Medical Summary | Summary of Care ---
Author Name Unknown Organization [facility] Address [address] [place] [address] Phone [phone] Care Team Providers Care Windows Vmware Administrator Name Role Phone Barrett Dacosta MD Primary Care Provider + Reason for Visit * Reason Comments Chemotherapy C1/D1 - Taxol/Carbop latin * Episode Based Medications (Routine) - Closed Specialty Diagnoses / Procedures Referred By Adali t Referred To Contact Diagnoses Encounter for antineoplastic chemotherapy Esophageal adenocarcinoma (HCC) Procedures [place] PALONOSETRON HCL [place] CARBOPLATIN INJECTION [place] PACLITAXEL INJECTION Werner Roland MD [address] [place] [address] [place] [address] Anc Hem/Onc [facility] [address] [place] [address] [place] [address] Referral ID Status Reason Start Date Expiration Date Visits Re quested Visits Authorized [id number] Closed 05/03/2023 05/03/[phone] Encounter Details Date Type Department Care Team (Latest Contact Info) Description 05/09/2023 1:00 PM EST Hem/Onc Treatment Hematology/Oncolog y Treatment, [address] [place] [address] [place], Chair 6 Hem Onc [address] [place] [address] Encounter for antineoplastic chemotherapy*; Esophageal adenocarcinoma [...] review)/esophagitis, martha 4 wk. CVA 05/26 [facility]. Left sided weakness. 05/26 TTE [facility] normal EF Grade 2 Farmer Dys. Moderate AV sclerosis and calcified mitral valve--stenosis + mod MR.mild MS. No shunt. 04/24 colon-polyp tubular adenoma. Declined f/u. 2012 adenoma. 08/18 TTE-possilbe vegetation. Mild LVH History of prostate cancer 01/09/2013 Overview: S/p [place] Dr [place] [facility] [place], goal [place] 140/90 06/04/2012 Gout 06/04/2012 [...] mRNA, LNP-s, No Pre serve, 2-Dose Series ([employer]) 02/20/2021,06/17/2020,05/26/2020 COVID-19, MRNA-LNP, 23-24, P F, 30 MCG/0.3 mL, 12 YRS AND ABOVE, IM ([employer]) 01/06/2023 Covid-19, Mrna, Lnp-s, Pf, B ivalent, [...] Description 07/17/2023 12:45 PM EDT Imaging Radiology [address] [place] [address] 07/28/2023 2:15 PM EDT Office Visit Hematology/Oncology [facility] [address] [facility] [place] [address] Werner Roland MD [address] [facility] [place] [address] 01/11/2024 8:00 AM EST Office Visit [facility] [address] [address] Barrett Dacosta MD [address] [place] [address] 01/23/2024 11:00 AM EST Telemedicine Neurosurgery, [place] [address] [place] [address] Earle Murphy MD [address] [place] [address] 07/18/2024 10:00 AM EDT Office Visit [facility] [address] [place] [address] Barrett Dacosta MD [address] [place] [address] Scheduled Procedures Name Priority Associated Diagnoses Date/Ti [...] Documents on File Type Date Recorded Patient User Interface Developer Expl anation POLST 03/23/2023 4:05 PM POLST [...] patient or by statute hierarchy) Care Teams Windows Vmware Administrator Relationship Specialty Start Date End Date Barrett Dacosta MD [address] [place] [address] PCP - General Family Medicine 04/11/18 documented as of this encounter
--- OUTSIDE RECORDS SUMMARY | 2023-07-22 02:14 | External Medical Summary | Summary of Care ---
Author Name Unknown Organization [facility] Address [address] [place] [address] Phone [phone] Care Team Providers Care Lace Inspector Name Role Phone Barrett Dacosta MD Primary Care Provider + Reason for Visit * Reason Comments Chemotherapy C1/D1 - Taxol/Carbop latin * Episode Based Medications (Routine) - Closed Specialty Diagnoses / Procedures Referred By Adali t Referred To Contact Diagnoses Encounter for antineoplastic chemotherapy Esophageal adenocarcinoma (HCC) Procedures [place] PALONOSETRON HCL [place] CARBOPLATIN INJECTION [place] PACLITAXEL INJECTION Werner Roland MD [address] [place] [address] [place] [address] Anc Hem/Onc [facility] [address] [place] [address] [place] [address] Referral ID Status Reason Start Date Expiration Date Visits Re quested Visits Authorized [id number] Closed 05/03/2023 05/03/[phone] Encounter Details Date Type Department Care Team (Latest Contact Info) Description 05/09/2023 1:00 PM EST Hem/Onc Treatment Hematology/Oncolog y Treatment, [address] [place] [address] [place], Chair 6 Hem Onc [address] [place] [address] Encounter for antineoplastic chemotherapy*; Esophageal adenocarcinoma [...] + high grade dysplasia (? Cancer[place] [facility] [place]esophagitis, martha 4 wk. CVA 05/26 [facility]. Left sided weakness. 05/26 TTE [facility] normal EF Grade 2 Farmer Dys. [...] mRNA, LNP-s, No Pre serve, 2-Dose Series ([employer]) 02/20/2021,06/17/2020,05/26/2020 COVID-19, MRNA-LNP, 23-24, P F, 30 MCG/0.3 mL, 12 YRS AND ABOVE, IM ([employer]) 01/06/2023 Covid-19, Mrna, Lnp-s, Pf, B ivalent, [...] Description 07/17/2023 12:45 PM EDT Imaging Radiology [address] [place] [address] 07/28/2023 2:15 PM EDT Office Visit Hematology/Oncology [facility] [address] [facility] [place] [address] Werner Roland MD [address] [facility] [place] [address] 01/11/2024 8:00 AM EST Office Visit [facility] [address] [place] [address] Barrett Dacosta MD [address] [place] [address] 01/23/2024 11:00 AM EST Telemedicine Neurosurgery, [place] [address] [place] [address] Earle Murphy MD [address] [place] [address] 07/18/2024 10:00 AM EDT Office Visit [facility] [address] [place] [address] Barrett Dacosta MD [address] [place] [address] Scheduled Procedures Name Priority Associated Diagnoses Date/Ti [...] Documents on File Type Date Recorded 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
--- OUTSIDE RECORDS SUMMARY | 2023-07-22 02:14 | External Medical Summary | Summary of Care ---
Author Name Unknown Organization [facility] Address [address] [place] [address] Phone [phone] Care Team Providers Care Wholesale Manager Name Role Phone Barrett Dacosta MD Primary Care Provider + Reason for Visit * Reason Onset Date Comments Mycode Lab Reorder 07/11/2023 Encounter Details Date Type Department Care Team (Late st Contact Info) Description 07/11/2023 Orders Only Outcomes Research Department [address] [place] [address] Isatu Proctor CHRA MyCode Research Other*[id number]* Allergies No known active allergiesdocumented as of this encounter (statuses as of 07/11/2023) Medications Medication Sig Dispensed Refills Start Date [...] Active traMADol HCl 50 MG Oral Tablet (Ultram)Indications:M EDICATION USE AGREEMENT,Status post lumbar spinal fusion,Chronic bilateral [...] Vitamin D3 50 MCG (2000 UT) Oral CapsuleIndications:S/ p left hip fracture Take 1 Capsule by [...] Active Ondansetron HCl 8 MG Oral Tablet (Zofran)Indications:E sophageal adenocarcinoma (HCC) Take 1 Tablet by mouth every 8 hours as needed for Nausea. 30 Tablet 2 05/03/2023 Active Prochlorperazine Maleate 10 MG Oral Tablet (Compazine)Indication s:Esophageal adenocarcinoma (HCC) Take 1 Tablet by mouth every 6 hours as needed for Nausea. 30 Tablet 2 05/03/2023 Active dexAMETHasone 4 MG Oral Tablet (Decadron)Indications :Esophageal adenocarcinoma (HCC) Take 3 tablets (12mg) the night before and morning of treatment 6 Tablet 0 06/06/2023 Active oxyCODONE HCl 10 MG Oral Tablet (Roxicodone)Indicatio ns:S/p left hip fracture,Esophageal adenocarcinoma (HCC) Take 1 Tablet by mouth every 6 hours as needed for Pain, Severe or Pain, Moderate. 120 Tablet 0 06/17/2023 Active Fluticasone Propionate 50 MCG/ACT Nasal Suspension (Flonase)Indications: Sinus congestion Administer 2 Sprays into each nostril in the morning and 2 Sprays before bedtime. 18 g 5 06/29/2023 Active documented as of this encounter (statuses as of 07/11/2023) Active Problems Problem Noted Date Diagnosed Date [...] left vertebral artery 06/03/2022 Overview: 05/26 [facility] Type 2 diabetes mellitus wit h chronic [...] (? Cancer--sent to [facility] for review)/esophagitis, martha 4 wk. CVA 05/26 [facility]. Left sided weakness. 05/26 [facility]TE [facility] normal EF Grade 2 Farmer Dys. Moderate AV sclerosis and calcified mitral valve--stenosis + mod MR.mild MS. No shunt. 04/24 colon-polyp tubular adenoma. Declined f/u. 2012 adenoma. 08/18 TTE-possilbe vegetation. Mild LVH History of prostate cancer 01/09/2013 Overview: S/p resection Dr [facility] [place], goal below 140/90 06/04/2012 Gout 06/04/2012 Overview: 07/18 indomethicin non-form documented as of this encounter (statuses as of 07/11/2023) Resolved Problems Problem Noted Date Diagnosed Date [...] as of this encounter (statuses as of 07/11/2023) Immunizations Name Administration Dates Next Due COVID-19 mRNA, LNP-s, No Pre serve, 2-Dose Series ([employer]) 02/20/2021,06/17/2020,05/26/2020 COVID-19, MRNA-LNP, 23-24, P F, 30 MCG/0.3 mL, 12 YRS AND ABOVE, IM [facility] 01/06/2023 Covid-19, Mrna, Lnp-s, Pf, B ivalent, 30 Mcg, IM, 12 yrs and above ([facility]) 12/24/2021 Hepatitis B Vaccine, Recombi nant, Adjuvanted, [...] as of this encounter Progress Notes * Isatu Proctor CHRA - 07/11/2023 10:06 AM EDT MyCode lab reordered. documented in this encounter Plan of Treatment Upcoming Encounters Date Type Department Care Team (Late st Contact Info) Description 07/17/2023 12:45 PM EDT Imaging Radiology [address] [facility] [place] [address] 07/28/2023 2:15 PM EDT Office Visit Hematology/Oncology [facility] [address] [place] [address] Werner Roland MD [address] [place] [address] 01/11/2024 8:00 AM EST Office Visit Family Practice [facility] [address] [place] [address] Barrett Dacosta MD [address] [place] [address] 01/23/2024 11:00 AM EST Telemedicine Neurosurgery, [place] [address] [place] [address] Earle Murphy MD [address] [place] [address] 07/18/2024 10:00 AM EDT Office Visit Family [facility] [address] [place] [address] Barrett Dacosta MD [address] [place] [address] Scheduled Orders Name Type Priority Associated Diagnoses Orde r Schedule MYCODE SUBSEQUENT ADULT Lab Routine MyCode Research Other*[id number] Every 6 Months for 2 Occurrences starting 07/11/2023 until 07/30/2024 Scheduled Procedures Name Priority Associated Diagnoses Date/Ti [...] as of this encounter Visit Diagnoses Diagnosis MyCode Research Other*[id number]- Primary documented in this encounter Advance Directives Documents on File Type Date Recorded Patient Press Manager Expl anation POLST 03/23/2023 4:05 PM POLST [...] patient or by statute hierarchy) Care Teams Wholesale Manager Relationship Specialty Start Date End Date Barrett Dacosta MD [address] [place] [address] PCP - General Family Medicine 04/11/18 documented as of this encounter
--- OUTSIDE RECORDS SUMMARY | 2023-07-22 02:14 | External Medical Summary | Summary of Care ---
Author Name Unknown Organization [facility] Address [address] [place] [address] Phone [phone] Care Team Providers Care Assistant Professor In Family Studies Name Role Phone Barrett Dacosta MD Primary Care Provider + Reason for Visit * Reason Comments Chemotherapy C1/D1 - Taxol/Carbop latin * Episode Based Medications (Routine) - Closed Specialty Diagnoses / Procedures Referred By Adali t Referred To Contact Diagnoses Encounter for antineoplastic chemotherapy Esophageal adenocarcinoma (HCC) Procedures IN PALONOSETRON HCL IN CARBOPLATIN INJECTION IN PACLITAXEL INJECTION Werner Roland MD [address] [place] [address] [place] [address] Anc Hem/Onc [facility] [address] [place] [address] [place] [address] Referral ID Status Reason Start Date Expiration Date Visits Re quested Visits Authorized [id number] Closed 05/03/2023 05/03/[phone] Encounter Details Date Type Department Care Team (Latest Contact Info) Description 05/09/2023 1:00 PM EST Hem/Onc Treatment Hematology/Oncolog y Treatment, [address] [place] [address] [place], Chair 6 Hem Onc [address] [place] [address] Encounter for antineoplastic chemotherapy*; Esophageal adenocarcinoma [...] + high grade dysplasia (? Cancer--sent to [facility] for review)/esophagitis, martha 4 wk. CVA 05/26 [facility]. Left sided weakness. 05/26 TTE [facility] normal EF Grade 2 Farmer Dys. Moderate AV sclerosis and calcified mitral valve--stenosis + mod MR.mild MS. No shunt. 04/24 colon-polyp tubular adenoma. Declined f/u. 2012 adenoma. 08/18 TTE-possilbe vegetation. Mild LVH History of prostate cancer 01/09/2013 Overview: S/p resection Dr Whitehead [facility] HTN, goal below 140/90 06/04/2012 Gout 06/04/2012 [...] mRNA, LNP-s, No Pre serve, 2-Dose Series ([employer]) 02/20/2021,06/17/2020,05/26/2020 COVID-19, MRNA-LNP, 23-24, P F, 30 MCG/0.3 mL, 12 YRS AND ABOVE, IM ([facility]) 01/06/2023 Covid-19, Mrna, Lnp-s, Pf, B [...] Description 07/17/2023 12:45 PM EDT Imaging Radiology [address] [place] [address] 07/28/2023 2:15 PM EDT Office Visit Hematology/Oncology [facility] [address] [place] [address] Werner Roland MD [address] [facility] [place] [address] 01/11/2024 8:00 AM EST Office Visit [facility] [address] [place] [address] Barrett Dacosta MD [address] [place] [address] 01/23/2024 11:00 AM EST Telemedicine Neurosurgery, [place] [address] [place] [address] Earle Murphy MD [address] [place] [address] 07/18/2024 10:00 AM EDT Office Visit [facility] [address] [place] [address] Barrett Dacosta MD [address] [place] [address] Scheduled Procedures Name Priority Associated Diagnoses Date/Ti [...] Documents on File Type Date Recorded Patient Chief Engineer Production Expl anation POLST 03/23/2023 4:05 PM POLST [...] patient or by statute hierarchy) Care Teams Assistant Professor In Family Studies Relationship Specialty Start Date End Date Barrett Dacosta MD [address] [place] [address] PCP - General Family Medicine 04/11/18 documented as of this encounter
--- OUTSIDE RECORDS SUMMARY | 2023-07-22 02:14 | External Medical Summary | Summary of Care ---
Author Name Unknown Organization [facility] Address [address] [place] [address] Phone [phone] Care Team Providers Care Strategic Partnership Manager Name Role Phone Barrett Dacosta MD Primary Care Provider + Reason for Visit * Reason Comments Chemotherapy C1/D1 - Taxol/Carbop latin * Episode Based Medications (Routine) - Closed Specialty Diagnoses / Procedures Referred By Adali t Referred To Contact Diagnoses Encounter for antineoplastic chemotherapy Esophageal adenocarcinoma (HCC) Procedures [place] PALONOSETRON HCL CA CARBOPLATIN INJECTION CA PACLITAXEL INJECTION Werner Roland MD [address] [place] [address] [place] [address] Anc Hem/Onc [facility] [address] [place] [address] [place] [address] Referral ID Status Reason Start Date Expiration Date Visits Re quested Visits Authorized [id number] Closed 05/03/2023 05/03/[phone] Encounter Details Date Type Department Care Team (Latest Contact Info) Description 05/09/2023 1:00 PM EST Hem/Onc Treatment Hematology/Oncolog y Treatment, [address] [place] [address] [place], Chair 6 Hem Onc [address] [place] [address] Encounter for antineoplastic chemotherapy*; Esophageal adenocarcinoma [...] + high grade dysplasia (? Cancer--sent to [facility] for review)/esophagitis, martha 4 wk. CVA 05/26 [facility]. Left sided weakness. 05/26 TTE [facility] normal EF Grade 2 Farmer Dys. Moderate AV sclerosis and calcified mitral valve--stenosis + mod MR.mild MS. No shunt. 04/24 colon-polyp tubular adenoma. Declined f/u. 2012 adenoma. 08/18 TTE-possilbe vegetation. Mild LVH History of prostate cancer 01/09/2013 Overview: S/p resection Dr Whitehead [facility] HTN, goal below 140/90 [...] mRNA, LNP-s, No Pre serve, 2-Dose Series ([employer]) 02/20/2021,06/17/2020,05/26/2020 COVID-19, MRNA-LNP, 23-24, P F, 30 MCG/0.3 mL, 12 YRS AND ABOVE, IM ([facility]) 01/06/2023 Covid-19, Mrna, Lnp-s, Pf, B [...] Description 07/17/2023 12:45 PM EDT Imaging Radiology [address] [place] [address] 07/28/2023 2:15 PM EDT Office Visit Hematology/Oncology [facility] 200 [facility] [place] [address] Werner Roland MD 200 [facility] [place] [address] 01/11/2024 8:00 AM EST Office Visit [facility] [address] [place] [address] Barrett Dacosta MD [address] [place] [address] 01/23/2024 11:00 AM EST Telemedicine Neurosurgery, [place] [address] [place] [address] Earle Murphy MD [address] [place] [address] 07/18/2024 10:00 AM EDT Office Visit [facility] [address] [place] [address] Barrett Dacosta MD [address] [place] [address] Scheduled Procedures Name Priority Associated Diagnoses Date/Ti [...] Documents on File Type Date Recorded 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
--- OUTSIDE RECORDS SUMMARY | 2023-07-22 02:15 | External Medical Summary | Summary of Care ---
Author Name Unknown Organization [facility] Address [address] [facility] Phone [phone] Care Team Providers Care Equipment Validation Engineer Name Role Phone Barrett Dacosta MD Primary Care Provider + Reason for Visit * Reason Comments Chemotherapy C1D15 Taxol/Carbo * Episode Based Medications (Routine) - Closed Specialty Diagnoses / Procedures Referred By Adali t Referred To Contact Diagnoses Encounter for antineoplastic chemotherapy Esophageal adenocarcinoma (HCC) Procedures [place] PALONOSETRON HCL [place] CARBOPLATIN INJECTION [place] PACLITAXEL INJECTION Werner Roland MD [address] [place] [address] [place] [address] Anc Hem/Onc [address] [place] [id number] Referral ID Status Reason Start Date Expiration Date Visits Re quested Visits Authorized [id number] Closed 05/03/2023 05/03/[phone] Encounter Details Date Type Department Care Team (Latest Contact Info) Description 05/23/2023 8:30 AM EDT Hem/Onc Treatment Hematology/Oncolog y Treatment, [address] [place] [address] [place], Chair 4 Hem Onc [address] [place] [address] Encounter for antineoplastic chemotherapy*; Esophageal adenocarcinoma (HCC) Allergies No known active allergiesdocumented as of this encounter (statuses as of 07/07/2023) Medications Medication Sig Dispensed Refills Start Date [...] Tablet 0 05/03/2023 Discontinue d(Refill) oxyCODONE HCl 10 MG Oral Tablet (Roxicodone)Indicati ons:S/p left hip fracture,Esophageal adenocarcinoma (HCC) Take 1 Tablet by mouth every 6 hours as needed for Pain, Severe or Pain, Moderate. 120 Tablet 0 05/15/2023 Discontinue d(Refill) documented as of this encounter (statuses as of 07/07/2023) Active Problems Problem Noted Date Diagnosed Date [...] + high grade dysplasia (? Cancer--sent to [facility] for review)/esophagitis, martha 4 wk. CVA 05/26 [facility]. Left sided weakness. 05/26 TTE [facility] normal EF Grade 2 Farmer Dys. [...] as of this encounter (statuses as of 07/07/2023) Resolved Problems Problem Noted Date Diagnosed Date [...] as of this encounter (statuses as of 07/07/2023) Immunizations Name Administration Dates Next Due COVID-19 mRNA, LNP-s, No Pre serve, 2-Dose Series ([employer]) 02/20/2021,06/17/2020,05/26/2020 COVID-19, MRNA-LNP, 23-24, P F, 30 MCG/0.3 mL, 12 YRS AND ABOVE, IM ([facility] 01/06/2023 Covid-19, Mrna, Lnp-s, Pf, B ivalent, [...] as of this encounter Nursing Notes * Kadi Bright RN - 05/23/2023 12:38 PM EDT Safety and Risk for Injury Patient will remain free from injury. Ensure appropriate safety devices are available. Provide and maintain safe environment. Goals: Patient will remain free from injury. Possible barriers to meeting goals: ambulation with IV pole, use of wheelchair, benadryl pretreat may cause drowsiness Stability of the patient: Moderately unstable - medium risk of patient condition declining or worsening Summary regarding today's goals: Met: Pt remained free of injury during treatment toay Patient tolerated treatment well and was discharged in stable condition. Coverage by Berenice Nuno RN and Terra Hahn LPN. * Kadi Bright RN - 05/23/2023 9:36 AM EDT Chair 9, present Chemotherapy/Immunotherapy agents: CARBOPLATIN and TAXOL Consent for chemotherapy drug treatment complete, dated, and signed? yes, date - 05/02/23 Treatment lab parameters met? Yes Has treatment weight changed > than 10%? No Treatment preauthorized? Yes VITALS Filed Vitals: Urine protein: N/A Patient education completed for treatment? Yes Blood transfusion consent signed and complete? NA Return appointment scheduled? Yes Patient had provider visit today? Yes - Ok to release order and treat per provider Functional Status: Functional status at today's visit: [...] Description 07/17/2023 12:45 PM EDT Imaging Radiology [facility] 1st [facility] 132 [facility] [place] [address] 07/28/2023 2:15 PM EDT Office Visit Hematology/Oncology [facility] [place] [address] [place] [phone] Werner Roland MD 200 [facility] [place] [address] 01/11/2024 8:00 AM EST Office Visit Family Practice [facility] 132 [facility] [place] [address] Barrett Dacosta MD [address] [place] [address] 01/23/2024 11:00 AM EST Telemedicine [facility] [place] [address] [place] [address] Earle Murphy MD [address] [place], [place] [id number] 07/18/2024 10:00 AM EDT Office Visit Family Practice [facility] [address] [place] [address] Barrett Dacosta MD [address] [facility] [place] [address] Scheduled Procedures Name Priority Associated Diagnoses Date/Ti [...] Action Date Dose Rate Site CARBOplatin (Paraplatin) 98 mg in D5W 250 mL infusion 98 mg (rounded from 98.4 mg, Target AUC = 2), IV Piggyback, at 500 mL/hr Administer over 30 Minutes, PROTECT FROM LIGHT, ONCE, 1 dose, On Mon05/23/23 at 1015 Start Infusion 05/23/2023 10:32 AM EDT 98 mg 500 mL/hr dexAMETHasone (Decadron) tab 12 mg 12 mg, Oral, ONCE, On Mon05/23/23 at 0945, For 1 dose Given 05/23/2023 8:55 AM EDT 12 mg diphenhydrAMINE (Benadryl) 25 mg in NSS 50 mL ivpb 25 mg, IV Piggyback, ONCE, 1 dose, On Mon05/23/23 at 0915 Start Infusion 05/23/2023 9:07 AM EDT 25 mg 200 mL/hr Famotidine (Pepcid) tab 20 mg 20 mg, Oral, ONCE, On Mon05/23/23 at 0945, For 1 dose Given 05/23/2023 8:55 AM EDT 20 mg NSS infusion Intravenous, at 50 mL/hr, PRN, Starting on Mon05/23/23 at 0945, Until Mon05/23/23 at 1641, Maintenance line Start Infusion 05/23/2023 8:45 AM EDT 50 mL/hr PACLitaxel (Taxol) 84 mg in NSS 250 mL infusion 84 mg (50 mg/m2 1.68 m2 Treatment Plan BSA from Recorded weight), IV Piggyback, at 250 mL/hr Administer over 60 Minutes, Administer through 0.22 micron low protein binding filter!, ONCE, 1 dose, On Mon05/23/23 at 1015 Start Infusion 05/23/2023 9:25 AM EDT 84 mg 250 mL/hr Palonosetron (Aloxi) inj SOLN 0.25 mg 0.25 mg, IV Push, ONCE, On Mon05/23/23 at 0945, For 1 dose, Restricted per [facility] antiemetic guidelines Given 05/23/2023 8:55 AM EDT 0.25 mg documented in this encounter Advance Directives Documents on File Type Date Recorded Patient Hospital Admitting Clerk Expl anation POLST 03/23/2023 4:05 PM POLST [...] patient or by statute hierarchy) Care Teams Equipment Validation Engineer Relationship Specialty Start Date End Date Barrett Dacosta MD [address] [place] [address] PCP - General Family Medicine 04/11/18 documented as of this encounter
--- OUTSIDE RECORDS SUMMARY | 2023-07-22 02:15 | External Medical Summary | Summary of Care ---
Author Name Unknown Organization [facility] Address [address] [facility] [place] [address] Phone [phone] Care Team Providers Care Strategy Manager Name Role Phone Barrett Dacosta MD Primary Care Provider + Reason for Visit * Reason Comments Chemotherapy C1D8 Taxol/Carbo * Episode Based Medications (Routine) - Closed Specialty Diagnoses / Procedures Referred By Adali t Referred To Contact Diagnoses Encounter for antineoplastic chemotherapy Esophageal adenocarcinoma (HCC) Procedures [place] PALONOSETRON HCL IA CARBOPLATIN INJECTION [place] PACLITAXEL INJECTION Werner Roland MD [address] [place] [address] [place] [address] Anc Hem/Onc [address] [place] [address] Referral ID Status Reason Start Date Expiration Date Visits Re quested Visits Authorized [id number] Closed 05/03/2023 05/03/[phone] Encounter Details Date Type Department Care Team (Latest Contact Info) Description 05/16/2023 11:45 AM EDT Hem/Onc Treatment Hematology/Oncolog y Treatment, [address] [place] [address] [place], Chair 2 Hem Onc [address] [place] [address] Encounter for antineoplastic chemotherapy*; Esophageal adenocarcinoma [...] of left vertebral artery 06/03/2022 Overview: 05/26 [facility] Type 2 diabetes mellitus wit h chronic [...] for review)/esophagitis, martha 4 wk. CVA 05/26 [facility]. Left sided weakness. 05/26 TTE [facility] normal EF Grade 2 Farmer Dys. [...] mRNA, LNP-s, No Pre serve, 2-Dose Series ([employer]) 02/20/2021,06/17/2020,05/26/2020 COVID-19, MRNA-LNP, 23-24, P F, 30 MCG/0.3 mL, 12 YRS AND ABOVE, IM ([facility]) 01/06/2023 Covid-19, Mrna, Lnp-s, Pf, B [...] Sign Reading Time Taken Comments Blood Pressure 138/64 05/16/2023 11:50 AM EDT Pulse 76 05/16/2023 11:50 AM EDT Temperature 36.4 C (97.6 F) 05/16/2023 11:50 AM E DT Respiratory Rate 18 05/16/2023 11:50 AM EDT Oxygen Saturation 98% 05/16/2023 11:50 AM EDT Inhaled Oxygen Concentration - - Weight 57.9 kg (127 lb 9.6 oz) 05/16/2023 11:50 AM EDT Height - - Body Mass Index 20.6 02/16/2023 12:15 PM EST documented in this encounter Nursing Notes * Kadi Bright RN - 05/16/2023 2:59 PM EDT Goals: Patient will remain free from injury. Possible barriers to meeting goals: use of wheelchair in office, history of falls, benadryl pretreat may cause drowsiness Stability of the patient: Moderately unstable - medium risk of patient condition declining or worsening Summary regarding today's goals: Met: Pt remained free of injury during treatment today Patient tolerated treatment well and was discharged in stable condition. No coverage needed today. * Kadi Bright RN - 05/16/2023 12:15 PM EDT Chair 6 Chemotherapy/Immunotherapy agents: CARBOPLATIN and TAXOL Consent for chemotherapy drug treatment complete, dated, and signed? yes, date - 05/02/23 Treatment lab parameters met? Yes Has treatment weight changed > than 10%? No Treatment preauthorized? Yes VITALS Filed Vitals: 05/16/23 1150 BP: 138/64 Pulse: 76 Resp: 18 Temp: 36.4 C (97.6 F) TempSrc: Tympanic SpO2: 98% Weight: 57.9 kg (127 lb 9.6 oz) Urine protein: N/A Patient education completed [...] NEURO: denies symptoms CV/RESP: denies symptoms GI/: denies symptoms OTHER: denies any additional symptoms PAIN: 0 IV started in the right forearm without difficulty, good blood return noted, flushed with NSS, fluids infusing. Safety and Risk for Injury Patient will remain free from injury. Ensure appropriate safety devices are available. Provide and maintain safe environment. documented in this encounter Plan of Treatment Upcoming Encounters Date Type Department Care Team (Late st Contact Info) Description 07/17/2023 12:45 PM EDT Imaging Radiology [facility] 1st [facility] [address] [place] [address] 07/28/2023 2:15 PM EDT Office Visit Hematology/Oncology [facility] 200 [facility] [place] [phone] Werner Roland MD 200 [facility] [place] [address] 01/11/2024 8:00 AM EST Office Visit [facility] [address] [place] [address] Barrett Dacosta MD [address] [place] [address] 01/23/2024 11:00 AM EST Telemedicine [facility] [address] [place] [address] Earle Murphy MD [address] [place] [address] 07/18/2024 10:00 AM EDT Office Visit [facility] [address] [place] [address] Barrett Dacosta MD [address] [place] [address] Scheduled Procedures Name Priority Associated Diagnoses Date/Ti [...] PROTECT FROM LIGHT, ONCE, 1 dose, On 05/16/23 at 1345 Start Infusion 05/16/2023 1:58 PM EDT 91 mg 500 mL/hr dexAMETHasone (Decadron) tab 12 mg 12 mg, Oral, ONCE, On Mon05/16/23 at 1315, For 1 dose Given 05/16/2023 12:27 PM EDT 12 mg diphenhydrAMINE (Benadryl) 25 mg in NSS 50 mL ivpb 25 mg, IV Piggyback, ONCE, 1 dose, On Mon05/16/23 at 1245 Start Infusion 05/16/2023 12:28 PM EDT 25 mg 200 mL/hr Famotidine (Pepcid) tab 20 mg 20 mg, Oral, ONCE, On Mon05/16/23 at 1315, For 1 dose Given 05/16/2023 12:27 PM EDT 20 mg NSS infusion Intravenous, at 50 mL/hr, PRN, Starting on Mon05/16/23 at 1315, Until Mon05/16/23 at 1902, Maintenance line Start Infusion 05/16/2023 12:20 PM EDT 50 mL/hr PACLitaxel (Taxol) 84 mg in NSS 250 mL infusion 84 mg (50 mg/m2 1.68 m2 Treatment Plan BSA from Recorded weight), IV Piggyback, at 250 mL/hr Administer over 60 Minutes, Administer through 0.22 micron low protein binding filter!, ONCE, 1 dose, On Mon05/16/23 at 1345 Start Infusion 05/16/2023 12:50 PM EDT 84 mg 250 mL/hr Palonosetron (Aloxi) inj SOLN 0.25 mg 0.25 mg, IV Push, ONCE, On Mon05/16/23 at 1315, For 1 dose, Restricted per S antiemetic guidelines Given 05/16/2023 12:27 PM EDT 0.25 mg documented in this encounter Advance Directives Documents on File Type Date Recorded Patient Associate Financial Representative Expl anation POLST 03/23/2023 4:05 PM POLST [...] patient or by statute hierarchy) Care Teams Strategy Manager Relationship Specialty Start Date End Date Barrett Dacosta MD [address] [place] [address] PCP - General Family Medicine 04/11/18 documented as of this encounter
--- OUTSIDE RECORDS SUMMARY | 2023-07-22 02:15 | External Medical Summary | Summary of Care ---
Author Name Unknown Organization [facility] Address [address] [place] [facility] [place] [address] Phone [phone] Care Team Providers Care Sewer Name Role Phone Barrett Dacosta MD Primary Care Provider + Reason for Visit * Reason Comments Chemotherapy C1D15 Taxol/Carbo * Episode Based Medications (Routine) - Closed Specialty Diagnoses / Procedures Referred By Adali t Referred To Contact Diagnoses Encounter for antineoplastic chemotherapy Esophageal adenocarcinoma (HCC) Procedures [place] PALONOSETRON HCL CO CARBOPLATIN INJECTION CO PACLITAXEL INJECTION Werner Roland MD [address] [place] [address] [place] [address] Anc Hem/Onc [address] [place] [address] Referral ID Status Reason Start Date Expiration Date Visits Re quested Visits Authorized [id number] Closed 05/03/2023 05/03/[phone] Encounter Details Date Type Department Care Team (Latest Contact Info) Description 05/23/2023 8:30 AM EDT Hem/Onc Treatment Hematology/Oncolog y Treatment, [address] [place] [address] [place], Chair 4 Hem Onc [address] [place] [address] Encounter for antineoplastic chemotherapy*; Esophageal adenocarcinoma [...] left vertebral artery 06/03/2022 Overview: 05/26 [facility] Type 2 diabetes mellitus wit h chronic [...] + high grade dysplasia (? Cancer--sent to [facility] for review)/esophagitis, martha [...] cancer 01/09/2013 Overview: S/p resection Dr Whitehead [facility] HTN, goal below 140/90 06/04/2012 Gout 06/04/2012 [...] mRNA, LNP-s, No Pre serve, 2-Dose Series ([employer]) 02/20/2021,06/17/2020,05/26/2020 COVID-19, MRNA-LNP, 23-24, P F, 30 MCG/0.3 mL, 12 YRS AND ABOVE, IM ([facility] 01/06/2023 Covid-19, Mrna, Lnp-s, Pf, B ivalent, [...] Description 07/17/2023 12:45 PM EDT Imaging Radiology [facility] 1st [facility] 132 [facility] [place] [address] 07/28/2023 2:15 PM EDT Office Visit Hematology/Oncology Teri Dodson [place] [address] [place] [phone] Werner Roland MD 200 [facility] [place] [address] 01/11/2024 8:00 AM EST Office Visit Family Practice [facility] 132 [facility] [place] [address] Barrett Dacosta MD [address] [place] [address] 01/23/2024 11:00 AM EST Telemedicine [facility] [place] [address] [place] [address] Earle Murphy MD [address] [place], [place] [id number] 07/18/2024 10:00 AM EDT Office Visit Family Practice [facility] [address] [place] [address] Barrett Dacosta MD [address] [facility] [place] [address] Scheduled Procedures Name Priority Associated Diagnoses Date/Ti [...] 0945, For 1 dose, Restricted per [facility] antiemetic guidelines Given 05/23/2023 8:55 AM EDT 0.25 mg documented in this encounter Advance Directives Documents on File Type Date Recorded Patient Plating Equipment Tender Expl anation POLST 03/23/2023 4:05 PM [...] patient or by statute hierarchy) Care Teams Sewer Relationship Specialty Start Date End Date Barrett Dacosta MD [address] [place] [address] PCP - General Family Medicine 04/11/18 documented as of this encounter
--- OUTSIDE RECORDS SUMMARY | 2023-07-22 02:15 | External Medical Summary | Summary of Care ---
Author Name Unknown Organization [facility] Address [address] [facility] [place] [address] Phone [phone] Care Team Providers Care Loss Control Engineer Name Role Phone Barrett Dacosta MD Primary Care Provider + Reason for Visit * Reason Comments Chemotherapy C1D8 Taxol/Carbo * Episode Based Medications (Routine) - Closed Specialty Diagnoses / Procedures Referred By Adali t Referred To Contact Diagnoses Encounter for antineoplastic chemotherapy Esophageal adenocarcinoma (HCC) Procedures [place] PALONOSETRON HCL [place] CARBOPLATIN INJECTION [place] PACLITAXEL INJECTION Werner Roland MD [address] [place] [address] [place] [address] Anc Hem/Onc [address] [place] [address] Referral ID Status Reason Start Date Expiration Date Visits Re quested Visits Authorized [id number] Closed 05/03/2023 05/03/[phone] Encounter Details Date Type Department Care Team (Latest Contact Info) Description 05/16/2023 11:45 AM EDT Hem/Onc Treatment Hematology/Oncolog y Treatment, [address] [place] [address] Ivory, Chair 2 Hem On[address] [place] [address] Encounter for antineoplastic chemotherapy*; Esophageal adenocarcinoma [...] of left vertebral artery 06/03/2022 Overview: 05/26 [facility] Type 2 diabetes mellitus wit h chronic [...] grade dysplasia (? Cancer--sent to [facility] for review)/esophagitis, martha 4 wk. CVA 05/26 [facility]. Left sided weakness. 05/26 TTE [facility] normal EF Grade 2 Farmer Dys. Moderate AV sclerosis and calcified mitral valve--stenosis + mod MR.mild MS. No shunt. 04/24 colon-polyp tubular adenoma. Declined f/u. 2012 adenoma. 08/18 TTE-possilbe vegetation. Mild LVH History of prostate cancer 01/09/2013 Overview: S/p resection Dr Whitehead [facility] HTN, goal below 140/90 [...] mRNA, LNP-s, No Pre serve, 2-Dose Series ([employer]) 02/20/2021,06/17/2020,05/26/2020 COVID-19, MRNA-LNP, 23-24, P F, 30 MCG/0.3 mL, 12 YRS AND ABOVE, IM ([employer] [facility]) 01/06/2023 Covid-19, Mrna, Lnp-s, Pf, B [...] 12:45 PM EDT Imaging Radiology [facility] 1st [facility] [address] [place] [address] 07/28/2023 2:15 PM EDT Office Visit Hematology/Oncology [facility] [address] [facility] [place] [phone] Werner Roland MD [address] [facility] [place] [address] 01/11/2024 8:00 AM EST Office Visit [facility] [address] [place] [address] Barrett Dacosta MD [address] [place] [address] 01/23/2024 11:00 AM EST Telemedicine [facility] [address] [place] [address] Earle Murphy MD [address] [place] [address] 07/18/2024 10:00 AM EDT Office Visit [facility] [address] [place] [address] Barrett Dacosta MD [address] [place] [address] Scheduled Procedures Name Priority Associated Diagnoses Date/Ti [...] Documents on File Type Date Recorded Patient Center Administrator Expl anation POLST 03/23/2023 4:05 PM POLST [...] patient or by statute hierarchy) Care Teams Loss Control Engineer Relationship Specialty Start Date End Date Barrett Dacosta MD [address] [place] [address] PCP - General Family Medicine 04/11/18 documented as of this encounter
--- OUTSIDE RECORDS SUMMARY | 2023-07-22 02:15 | External Medical Summary | Summary of Care ---
Author Name Unknown Organization [facility] Address [address] [place] [facility] [place] [address] Phone [phone] Care Team Providers Care Data Sciences Director Name Role Phone Barrett Dacosta MD Primary Care Provider + Reason for Visit * Reason Comments Chemotherapy C1D15 Taxol/Carbo * Episode Based Medications (Routine) - Closed Specialty Diagnoses / Procedures Referred By Adali t Referred To Contact Diagnoses Encounter for antineoplastic chemotherapy Esophageal adenocarcinoma (HCC) Procedures [place] PALONOSETRON HCL [place] CARBOPLATIN INJECTION [place] PACLITAXEL INJECTION Werner Roland MD [address] [place] [address] [place] [address] Anc Hem/Onc [address] [place] [address] Referral ID Status Reason Start Date Expiration Date Visits Re quested Visits Authorized [id number] Closed 05/03/2023 05/03/[phone] Encounter Details Date Type Department Care Team (Latest Contact Info) Description 05/23/2023 8:30 AM EDT Hem/Onc Treatment Hematology/Oncolog y Treatment, [address] [place] [address] Ivory, Chair 4 Hem On[address] [place] [address] Encounter for antineoplastic chemotherapy*; Esophageal adenocarcinoma [...] + high grade dysplasia (? Cancer--sent to [facility] for review)/esophagitis, martha 4 wk. CVA 05/26 [facility]. Left sided weakness. 05/26 TTE [facility] normal EF Grade 2 Farmer Dys. Moderate AV sclerosis and calcified mitral valve--stenosis + mod MR.mild MS. No shunt. 04/24 colon-polyp tubular adenoma. Declined f/u. 2012 adenoma. 08/18 TTE-possilbe vegetation. Mild LVH History of prostate cancer 01/09/2013 Overview: S/p resection Dr White[facility] HTN, goal below 140/90 06/04/2012 [...] mRNA, LNP-s, No Pre serve, 2-Dose Series ([employer]) 02/20/2021,06/17/2020,05/26/2020 COVID-19, MRNA-LNP, 23-24, P F, 30 MCG/0.3 mL, 12 YRS AND ABOVE, IM ([facility]) 01/06/2023 Covid-19, Mrna, Lnp-s, Pf, B ivalent, [...] RN and Terra Hahn LPN. * Kadi Birght RN - 05/23/2023 9:36 AM EDT Chair [...] Description 07/17/2023 12:45 PM EDT Imaging Radiology [facility] 1st [facility] 132 [facility] [place] [address] 07/28/2023 2:15 PM EDT Office Visit Hematology/Oncology Teri Dodson [place] [address] [place] [place] [phone] Werner Roland MD 200 [facility] [place] [address] 01/11/2024 8:00 AM EST Office Visit Family Practice [facility] 132 [facility] [place] [address] Barrett Dacosta MD [address] [place] [address] 01/23/2024 11:[address] [facility] [place] [address] [place] [address] Earle Murphy MD [address] [place], [place] [id number] 07/18/2024 10:00 AM EDT Office Visit Family Practice [facility] [address] [place] [address] Barrett Dacosta MD [address] [facility] [place] [address] Scheduled Procedures Name Priority Associated Diagnoses Date/Ti [...] 0945, For 1 dose, Restricted per [facility] antiemetic guidelines Given 05/23/2023 8:55 AM EDT 0.25 mg documented in this encounter Advance Directives Documents on File Type Date Recorded Patient Mis Manager Expl anation POLST 03/23/2023 4:05 PM [...] patient or by statute hierarchy) Care Teams Data Sciences Director Relationship Specialty Start Date End Date Barrett Dacosta MD [address] [place] [address] PCP - General Family Medicine 04/11/18 documented as of this encounter
--- OUTSIDE RECORDS SUMMARY | 2023-07-22 02:15 | External Medical Summary | Summary of Care ---
Author Name Unknown Organization [facility] Address [address] [place] [place] [facility] [place] [address] Phone [phone] Care Team Providers Care Weights And Measures Sealer Name Role Phone Barrett Dacosta MD Primary Care Provider + Reason for Visit * Reason Comments Chemotherapy C1D15 Taxol/Carbo * Episode Based Medications (Routine) - Closed Specialty Diagnoses / Procedures Referred By Adali t Referred To Contact Diagnoses Encounter for antineoplastic chemotherapy Esophageal adenocarcinoma (HCC) Procedures [place] PALONOSETRON HCL HI CARBOPLATIN INJECTION HI PACLITAXEL INJECTION Werner Roland MD [address] [place] [address] [place] [address] Anc Hem/Onc [address] [place] [address] Referral ID Status Reason Start Date Expiration Date Visits Re quested Visits Authorized [id number] Closed 05/03/2023 05/03/[phone] Encounter Details Date Type Department Care Team (Latest Contact Info) Description 05/23/2023 8:30 AM EDT Hem/Onc Treatment Hematology/Oncolog y Treatment, [address] [place] [address] Ivory, Chair 4 Hem Onc [address] [place] [address] Encounter for antineoplastic chemotherapy*; Esophageal adenocarcinoma [...] of left vertebral artery 06/03/2022 Overview: 05/26 [facility] Type 2 diabetes mellitus wit h [...] + high grade dysplasia (? Cancer--sent [place] [facility] [place]esophagitis, martha 4 wk. CVA 05/26 [...] Overview: S/p resection Dr Whitehead [facility] [place], goal below 140/90 06/04/2012 Gout 06/04/2012 [...] mRNA, LNP-s, No Pre serve, 2-Dose Series ([employer]) 02/20/2021,06/17/2020,05/26/2020 COVID-19, MRNA-LNP, 23-24, P F, 30 MCG/0.3 mL, 12 YRS AND ABOVE, IM ([facility]) 01/06/2023 Covid-19, Mrna, Lnp-s, Pf, [...] Description 07/17/2023 12:45 PM EDT Imaging Radiology [facility] [address] [facility] 132 [facility] [place] [address] 07/28/2023 2:15 PM EDT Office Visit Hematology/Oncology Teri Dodson [place] [address] [place] [address] [phone] Werner Roland MD [address] [facility] [place] [address] 01/11/2024 8:00 AM EST Office Visit Family Practice [facility] [address] [facility] [place] [address] Barrett Dacosta MD [address] [place] [address] 01/23/2024 11:00 AM EST Telemedicine [facility] [place] [address] [place] [address] Earle Murphy MD [address] [place], [place] [phone] 07/18/2024 10:00 AM EDT Office Visit Family Practice [facility] [address] [place] [address] Barrett Dacosta MD [address] [facility] [place] [address] Scheduled Procedures Name Priority Associated Diagnoses Date/Ti [...] at 0945, For 1 dose, Restricted per [facility] antiemetic guidelines Given 05/23/2023 8:55 AM EDT 0.25 mg documented in this encounter Advance Directives Documents on File Type Date Recorded Patient Recycling Operator Expl anation POLST 03/23/2023 4:05 PM [...] patient or by statute hierarchy) Care Teams Weights And Measures Sealer Relationship Specialty Start Date End Date Barrett Dacosta MD [address] [place] [address] PCP - General Family Medicine 04/11/18 documented as of this encounter
--- OUTSIDE RECORDS SUMMARY | 2023-07-22 02:15 | External Medical Summary | Summary of Care ---
Author Name Unknown Organization [facility] Address [address] [facility] [place] [address] Phone [phone] Care Team Providers Care Serging Machine Operator Name Role Phone Barrett Dacosta MD Primary Care Provider + Reason for Visit * Reason Comments Chemotherapy C1D15 Taxol/Carbo * Episode Based Medications (Routine) - Closed Specialty Diagnoses / Procedures Referred By Adali t Referred To Contact Diagnoses Encounter for antineoplastic chemotherapy Esophageal adenocarcinoma (HCC) Procedures [place] PALONOSETRON HCL ND CARBOPLATIN INJECTION ND PACLITAXEL INJECTION Werner Roland MD [address] [place] [address] [place] [address] Anc Hem/Onc [address] [place] [address] Referral ID Status Reason Start Date Expiration Date Visits Re quested Visits Authorized [id number] Closed 05/03/2023 05/03/[phone] Encounter Details Date Type Department Care Team (Latest Contact Info) Description 05/23/2023 8:30 AM EDT Hem/Onc Treatment Hematology/Oncolog y Treatment, [address] [place] [address] Ivory, Chair 4 Hem Onc [address] [place] [address] Encounter for antineoplastic chemotherapy*; Esophageal adenocarcinoma [...] high grade dysplasia (? Cancer--sent to [facility] for review)/esophagitis, martha 4 wk. [...] cancer 01/09/2013 Overview: S/p resection Dr Whitehead [facility] HTN, goal below 140/90 06/04/2012 [...] mRNA, LNP-s, No Pre serve, 2-Dose Series ([employer]) 02/20/2021,06/17/2020,05/26/2020 COVID-19, MRNA-LNP, 23-24, P F, 30 MCG/0.3 mL, 12 YRS AND ABOVE, IM ([employer]) 01/06/2023 Covid-19, Mrna, Lnp-s, Pf, B [...] 12:45 PM EDT Imaging Radiology [facility]st [facility] 132 [facility] [place] [address] 07/28/2023 2:15 PM EDT Office Visit Hematology/Oncology Teri Dodson [place] [address] [place] [address] [phone] Werner Roland MD 200 [facility] [place] [address] 01/11/2024 8:00 AM EST Office Visit Family Practice [facility] 132 [facility] [place] [address] Barrett Dacosta MD [address] [place] [address] 01/23/2024 11:00 AM EST Telemedicine [facility] [place] [address] [place] [address] Earle Murphy MD [address] [place], [place] [phone] 07/18/2024 10:00 AM EDT Office Visit Family Practice [facility] [address] [place] [address] Barrett Dacosta MD [address] [facility] [place] [address] Scheduled Procedures Name Priority Associated Diagnoses Date/Ti [...] 0945, For 1 dose, Restricted per [facility] antiemetic guidelines Given 05/23/2023 8:55 AM EDT 0.25 mg documented in this encounter Advance Directives Documents on File Type Date Recorded Patient Selling Underwriter Expl anation POLST 03/23/2023 4:05 PM POLST [...] patient or by statute hierarchy) Care Teams Serging Machine Operator Relationship Specialty Start Date End Date Barrett Dacosta MD [address] [address] PCP - General Family Medicine 04/11/18 documented as of this encounter
--- OUTSIDE RECORDS SUMMARY | 2023-07-22 02:16 | External Medical Summary | Summary of Care ---
Author Name Unknown Organization [facility] Address [address] [place] [place] [place] [address] Phone [phone] Care Team Providers Care Restaurant Busser Name Role Phone Barrett Dacosta MD Primary Care Provider + Reason for Visit * Reason Comments Chemotherapy C1D8 Taxol/Carbo * Episode Based Medications (Routine) - Closed Specialty Diagnoses / Procedures Referred By Adali t Referred To Contact Diagnoses Encounter for antineoplastic chemotherapy Esophageal adenocarcinoma (HCC) Procedures [place] PALONOSETRON HCL ME CARBOPLATIN INJECTION ME PACLITAXEL INJECTION Werner Roland MD [address] [place] [address] [place] [address] Anc Hem/Onc [address] [place] [address] Referral ID Status Reason Start Date Expiration Date Visits Re quested Visits Authorized [id number] Closed 05/03/2023 05/03/[phone] Encounter Details Date Type Department Care Team (Latest Contact Info) Description 05/16/2023 11:45 AM EDT Hem/Onc Treatment Hematology/Oncolog y Treatment, [address] [place] [address] Ivory, Chair 2 Hem Onc [address] [place] [address] Encounter for antineoplastic chemotherapy*; Esophageal adenocarcinoma [...] + high grade dysplasia (? Cancer--sent [place] [facility] for [place])/esophagitis, martha 4 wk. CVA 05/26 [facility]. Left sided weakness. 05/26 TTE [facility] normal EF Grade 2 Farmer Dys. Moderate [...] mRNA, LNP-s, No Pre serve, 2-Dose Series (Need) 02/20/2021,06/17/2020,05/26/2020 COVID-19, MRNA-LNP, 23-24, P F, 30 MCG/0.3 mL, 12 YRS AND ABOVE, IM ([facility]) 01/06/2023 Covid-19, Mrna, Lnp-s, Pf, B ivalent, [...] 07/17/2023 12:45 PM EDT Imaging Radiology [facility] 1st [facility] [address] [place] [address] 07/28/2023 2:15 PM EDT Office Visit Hematology/Oncology [facility] [address] [facility] [place] [phone] Werner Roland MD [address] [facility] [place] [address] 01/11/2024 8:00 AM EST Office Visit [facility] [address] [place] [address] Barrett Dacosta MD [address] [place] [address] 01/23/2024 11:00 AM EST Telemedicine [facility] [address] [place] [address] Earle Murphy MD [address] [place] [address] 07/18/2024 10:00 AM EDT Office Visit [facility] [address] [address] Barrett Dacosta MD [address] [place] [address] Scheduled Procedures Name Priority Associated Diagnoses Date/Ti [...] Documents on File Type Date Recorded Patient Mud Car Worker Expl anation POLST 03/23/2023 4:05 PM POLST [...] patient or by statute hierarchy) Care Teams Restaurant Busser Relationship Specialty Start Date End Date Barrett Dacosta MD [address] [place] [address] PCP - General Family Medicine 04/11/18 documented as of this encounter
--- OUTSIDE RECORDS SUMMARY | 2023-07-22 02:16 | External Medical Summary | Summary of Care ---
Author Name Unknown Organization [facility] Address [address] [place] [place] [place] [address] Phone [phone] Care Team Providers Care Wood Floor Layer Name Role Phone Barrett Dacosta MD Primary Care Provider + Reason for Visit * Reason Comments Chemotherapy C1D8 Taxol/Carbo * Episode Based Medications (Routine) - Closed Specialty Diagnoses / Procedures Referred By Adali t Referred To Contact Diagnoses Encounter for antineoplastic chemotherapy Esophageal adenocarcinoma (HCC) Procedures [place] PALONOSETRON HCL [place] CARBOPLATIN INJECTION [place] PACLITAXEL INJECTION Werner Roland MD [address] [place] [address] [place] [address] Anc Hem/Onc [address] [place] [address] Referral ID Status Reason Start Date Expiration Date Visits Re quested Visits Authorized [id number] Closed 05/03/2023 05/03/[phone] Encounter Details Date Type Department Care Team (Latest Contact Info) Description 05/16/2023 11:45 AM EDT Hem/Onc Treatment Hematology/Oncolog y Treatment, [address] [place] [address] Ivory, Chair 2 Hem Onc [address] [place] [address] Encounter for antineoplastic chemotherapy*; Esophageal adenocarcinoma [...] high grade dysplasia (? Cancer--sent to [facility] for review)/esophagitis, martha 4 wk. CVA 05/26 [facility]. Left sided weakness. 05/26 TTE [facility] normal EF Grade 2 Farmer Dys. Moderate AV sclerosis and calcified mitral valve--stenosis + mod MR.mild MS. No shunt. 04/24 colon-polyp tubular adenoma. Declined f/u. 2012 adenoma. 08/18 TTE-possilbe vegetation. Mild LVH History of prostate cancer 01/09/2013 Overview: S/p resection Dr Whitehead [facility] HTN, goal below [...] mRNA, LNP-s, No Pre serve, 2-Dose Series ([employer]) 02/20/2021,06/17/2020,05/26/2020 COVID-19, MRNA-LNP, 23-24, P F, 30 MCG/0.3 mL, 12 YRS AND ABOVE, IM ([facility]) 01/06/2023 Covid-19, Mrna, Lnp-s, Pf, B [...] Description 07/17/2023 12:45 PM EDT Imaging Radiology [facility] 1st [facility] [address] [place] [address] 07/28/2023 2:15 PM EDT Office Visit Hematology/Oncology [facility] [address] [facility] [place] [phone] Werner Roland MD [address] [facility] [place] [address] 01/11/2024 8:00 AM EST Office Visit [facility] [address] [place] [address] Barrett Dacosta MD [address] [place] [address] 01/23/2024 11:00 AM EST Telemedicine [facility] [address] [place] [address] Earle Murphy MD [address] [place] [address] 07/18/2024 10:00 AM EDT Office Visit [facility] [address] [place] [address] Barrett Dacosta MD [address] [place] [address] Scheduled Procedures Name Priority Associated Diagnoses Date/Ti [...] Documents on File Type Date Recorded Patient Mold Maker Helper Expl anation POLST 03/23/2023 4:05 PM POLST [...] patient or by statute hierarchy) Care Teams Wood Floor Layer Relationship Specialty Start Date End Date Barrett Dacosta MD [address] [place] [address] PCP - General Family Medicine 04/11/18 documented as of this encounter
--- OUTSIDE RECORDS SUMMARY | 2023-07-22 02:16 | External Medical Summary | Summary of Care ---
Author Name Unknown Organization [facility] Address [address] [place] [facility] [place] [place] [address] Phone [phone] Care Team Providers Care Agricultural Consultant Name Role Phone Barrett Dacosta MD Primary Care Provider + Reason for Visit * Reason Comments Chemotherapy C1D22 Taxol/Carbo * Episode Based Medications (Routine) - Closed Specialty Diagnoses / Procedures Referred By Adali t Referred To Contact Diagnoses Encounter for antineoplastic chemotherapy Esophageal adenocarcinoma (HCC) Procedures GA PALONOSETRON HCL GA CARBOPLATIN INJECTION GA PACLITAXEL INJECTION Werner Roland MD [address] [place] [address] [place] [address] Anc Hem/Onc [address] [place] [address] Referral ID Status Reason Start Date Expiration Date Visits Re quested Visits Authorized [id number] Closed 05/03/2023 05/03/[phone] Encounter Details Date Type Department Care Team (Latest Contact Info) Description 05/30/2023 11:45 AM EDT Hem/Onc Treatment Hematology/Oncolog y Treatment, [address] [place] [address] Ivory, Chair 8 Hem Onc [address] [place] [address] Encounter for antineoplastic chemotherapy*; Esophageal adenocarcinoma (HCC) Allergies No known active allergiesdocumented as of this encounter (statuses as of 07/06/2023) Medications Medication Sig Dispensed Refills Start Date [...] as of this encounter (statuses as of 07/06/2023) Active Problems Problem Noted Date Diagnosed Date [...] left vertebral artery 06/03/2022 Overview: 05/26 [facility] Type 2 diabetes mellitus wit h chronic [...] + high grade dysplasia (? Cancer--sent to [facility] for review)/esophagitis, amrtha 4 wk. CVA 05/26 [facility]. Left sided weakness. 05/26 TTE [facility] normal EF Grade 2 Farmer [...] as of this encounter (statuses as of 07/06/2023) Resolved Problems Problem Noted Date Diagnosed Date [...] as of this encounter (statuses as of 07/06/2023) Immunizations Name Administration Dates Next Due COVID-19 mRNA, LNP-s, No Pre serve, 2-Dose Series (ID90T) 02/20/2021,06/17/2020,05/26/2020 COVID-19, MRNA-LNP, 23-24, P F, 30 MCG/0.3 mL, 12 YRS AND ABOVE, IM ([facility]) 01/06/2023 Covid-19, Mrna, Lnp-s, Pf, B ivalent, [...] Sign Reading Time Taken Comments Blood Pressure 122/72 05/30/2023 11:45 AM EDT Pulse 108 05/30/2023 11:45 AM EDT Temperature 36.5 C (97.7 F) 05/30/2023 11:45 AM E DT Respiratory Rate 18 05/30/2023 11:45 AM EDT Oxygen Saturation 97% 05/30/2023 11:45 AM EDT Inhaled Oxygen Concentration - - Weight 55.9 kg (123 lb 3.2 oz) 05/30/2023 11:45 AM EDT Height - - Body Mass Index 19.89 02/16/2023 12:15 PM EST documented in this encounter Nursing Notes * Kadi Bright RN - 05/30/2023 2:35 PM EDT Chair 10, present. Chemotherapy/Immunotherapy agents: CARBOPLATIN TAXOL Consent for chemotherapy drug treatment complete, dated, and signed? yes, date - 05/02/23 Treatment lab parameters met? Yes Has treatment weight changed > than 10% NO- Treatment preauthorized? Yes VITALS Filed Vitals: 05/30/23 1145 BP: 122/72 Pulse: 108 Resp: 18 Temp: 36.5 C (97.7 F) TempSrc: Tympanic SpO2: 97% Weight: 55.9 kg (123 lb 3.2 oz) Urine protein: N/A Patient education completed [...] side effects during treatment. PRE-TREATMENT ASSESSMENT: NEURO: fatigue:rests often CV/RESP: denies symptoms GI/: denies symptoms OTHER: [...] to meeting goals: use of wheelchair in clinic, fatigue, IV benadryl pretreat may cause drowsiness Stability of the patient: Moderately unstable - medium risk of patient condition declining or worsening Summary regarding today's goals: Met: Pt remained free of injury during treatment Patient tolerated treatment well and was discharged in stable condition. Coverage by Bernabe Sauceda RN and Terra Coyle RN. documented in this encounter Plan of Treatment Upcoming Encounters Date Type Department Care Team (Late st Contact Info) Description 07/17/2023 12:45 PM EDT Imaging Radiology [facility] 1st [facility] [address] [place] [address] 07/28/2023 2:15 PM EDT Office Visit Hematology/Oncology [facility] [address] [facility] [place] [address] Werner Roland MD [address] [facility] [place] [address] 01/11/2024 8:00 AM EST Office Visit [facility] [address] [place] [address] Barrett Dacosta MD [address] [place] [address] 01/23/2024 11:00 AM EST Telemedicine [facility] [address] [place] [address] Earle Murphy MD [address] [place] [address] 07/18/2024 10:00 AM EDT Office Visit [facility] [address] [place] [address] Barrett Dacosta MD 132 [facility] [place] [address] Scheduled Procedures Name Priority Associated Diagnoses Date/Ti [...] PROTECT FROM LIGHT, ONCE, 1 dose, On Mon05/30/23 at 1345 Start Infusion 05/30/2023 1:45 PM EDT 101 mg 500 mL/hr dexAMETHasone (Decadron) tab 12 mg 12 mg, Oral, ONCE, On Mon05/30/23 at 1315, For 1 dose Given 05/30/2023 12:21 PM EDT 12 mg diphenhydrAMINE (Benadryl) 25 mg in NSS 50 mL ivpb 25 mg, IV Piggyback, ONCE, 1 dose, On Mon05/30/23 at 1245 Start Infusion 05/30/2023 12:21 PM EDT 25 mg 200 mL/hr Famotidine (Pepcid) tab 20 mg 20 mg, Oral, ONCE, On Mon05/30/23 at 1315, For 1 dose Given 05/30/2023 12:21 PM EDT 20 mg NSS infusion Intravenous, at 50 mL/hr, PRN, Starting on Mon05/30/23 at 1315, Until Mon05/30/23 at 1852, Maintenance line Start Infusion 05/30/2023 12:00 PM EDT 50 mL/hr PACLitaxel (Taxol) 84 mg in NSS 250 mL infusion 84 mg (50 mg/m2 1.68 m2 Treatment Plan BSA from Recorded weight), IV Piggyback, at 250 mL/hr Administer over 60 Minutes, Administer through 0.22 micron low protein binding filter!, ONCE, 1 dose, On Mon05/30/23 at 1345 Start Infusion 05/30/2023 12:39 PM EDT 84 mg 250 mL/hr Palonosetron (Aloxi) inj SOLN 0.25 mg 0.25 mg, IV Push, ONCE, On Mon05/30/23 at 1315, For 1 dose, Restricted per S antiemetic guidelines Given 05/30/2023 12:21 PM EDT 0.25 mg documented in this encounter Advance Directives Documents on File Type Date Recorded Patient Menagerie Caretaker Expl anation POLST 03/23/2023 4:05 PM POLST (Torrse ited DNR) Latest Code Status on File [...] patient or by statute hierarchy) Care Teams Agricultural Consultant Relationship Specialty Start Date End Date Barrett Dacosta MD [address] [place] [address] PCP - General Family Medicine 04/11/18 documented as of this encounter
--- OUTSIDE RECORDS SUMMARY | 2023-07-22 02:16 | External Medical Summary | Summary of Care ---
Author Name Unknown Organization [facility] Address [address] [place] [place] [address] Phone [phone] Care Team Providers Care Level Vial Inside Grinder Name Role Phone Barrett Dacosta MD Primary Care Provider + Reason for Visit * Reason Comments Chemotherapy C1D22 Taxol/Carbo * Episode Based Medications (Routine) - Closed Specialty Diagnoses / Procedures Referred By Adali t Referred To Contact Diagnoses Encounter for antineoplastic chemotherapy Esophageal adenocarcinoma (HCC) Procedures MA PALONOSETRON HCL MA CARBOPLATIN INJECTION MA PACLITAXEL INJECTION Werner Roland MD [address] [place] [address] [place] [address] Anc Hem/Onc [address] [place] [address] Referral ID Status Reason Start Date Expiration Date Visits Re quested Visits Authorized [id number] Closed 05/03/2023 05/03/[phone] Encounter Details Date Type Department Care Team (Latest Contact Info) Description 05/30/2023 11:45 AM EDT Hem/Onc Treatment Hematology/Oncolog y Treatment, [address] [place] [address] Ivory, Chair 8 Hem Onc [address] [place] [address] Encounter for antineoplastic chemotherapy*; Esophageal adenocarcinoma [...] 01/09/2013 Overview: S/p resection Dr Whitehead [facility] HTN, goal below 140/90 06/04/2012 Gout 06/04/2012 [...] mRNA, LNP-s, No Pre serve, 2-Dose Series (Solaicx) 02/20/2021,06/17/2020,05/26/2020 COVID-19, MRNA-LNP, 23-24, P F, 30 MCG/0.3 mL, 12 YRS AND ABOVE, IM ([facility]) 01/06/2023 Covid-19, Mrna, Lnp-s, Pf, B [...] Description 07/17/2023 12:45 PM EDT Imaging Radiology [facility] 1st [facility] [address] [place] [address] 07/28/2023 2:15 PM EDT Office Visit Hematology/Oncology [facility] 200 [facility] [place] [address] Werner Roland MD 200 [facility] [place] [address] 01/11/2024 8:00 AM EST Office Visit [facility] [address] [place] [address] Barrett Dacosta MD [address] [place] [address] 01/23/2024 11:00 AM EST Telemedicine [facility] [address] [place] [address] Earle Murphy MD [address] [place] [address] 07/18/2024 10:00 AM EDT Office Visit [facility] [address] [place] [address] Barrett Dacosta MD 132 [facility] [place] [address] Scheduled Procedures Name Priority Associated Diagnoses Date/Ti [...] Documents on File Type Date Recorded Patient Industrial Management Teacher Expl anation POLST 03/23/2023 4:05 PM POLST [...] patient or by statute hierarchy) Care Teams Level Vial Inside Grinder Relationship Specialty Start Date End Date Barrett Dacosta MD [address] [place] [address] PCP - General Family Medicine 04/11/18 documented as of this encounter
--- OUTSIDE RECORDS SUMMARY | 2023-07-22 02:17 | External Medical Summary | Summary of Care ---
Author Name Unknown Organization [facility] Address [address] [facility] [address] Phone [phone] Care Team Providers Care Rate Setter Name Role Phone Barrett Dacosta MD Primary Care Provider + Reason for Visit * Reason Comments Chemotherapy C1D22 Taxol/Carbo * Episode Based Medications (Routine) - Closed Specialty Diagnoses / Procedures Referred By Adali t Referred To Contact Diagnoses Encounter for antineoplastic chemotherapy Esophageal adenocarcinoma (HCC) Procedures [place] PALONOSETRON HCL UT CARBOPLATIN INJECTION UT PACLITAXEL INJECTION Werner Roland MD [address] [place] [address] [place] [address] Anc Hem/Onc [address] [place] [address] Referral ID Status Reason Start Date Expiration Date Visits Re quested Visits Authorized [id number] Closed 05/03/2023 05/03/[phone] Encounter Details Date Type Department Care Team (Latest Contact Info) Description 05/30/2023 11:45 AM EDT Hem/Onc Treatment Hematology/Oncolog y Treatment, [address] [place] [address] Ivory, Chair 8 Hem Onc [address] [place] [address] Encounter for antineoplastic chemotherapy*; Esophageal [...] review)/esophagitis, martha 4 wk. CVA 05/26 [facility]. Left sided weakness. 05/26 TTE [facility] normal EF Grade 2 Farmer Dys. Moderate AV sclerosis and calcified mitral valve--stenosis + mod MR.mild MS. No shunt. 04/24 colon-polyp tubular adenoma. Declined f/u. 2012 adenoma. 08/18 TTE-possilbe vegetation. Mild LVH History of prostate cancer 01/09/2013 Overview: S/p resection Dr Whitehead [facility] HT[place], goal below 140/90 06/04/2012 [...] mRNA, LNP-s, No Pre serve, 2-Dose Series (Scalado) 02/20/2021,06/17/2020,05/26/2020 COVID-19, MRNA-LNP, 23-24, P F, 30 MCG/0.3 mL, 12 YRS AND ABOVE, IM ([facility]) 01/06/2023 Covid-19, Mrna, Lnp-s, Pf, B [...] Description 07/17/2023 12:45 PM EDT Imaging Radiology [facility] 1st [facility] [address] [place] [address] 07/28/2023 2:15 PM EDT Office Visit Hematology/Oncology [facility] 200 [facility] [place] [address] Werner Roland MD 200 [facility] [place] [address] 01/11/2024 8:00 AM EST Office Visit [facility] [address] [place] [address] Barrett Dacosta MD [address] [place] [address] 01/23/2024 11:00 AM EST Telemedicine [facility] [address] [place] [address] Earle Murphy MD [address] [place] [address] 07/18/2024 10:00 AM EDT Office Visit [facility] [address] [place] [address] Barrett Dacosta MD 132 [facility] [place] [address] Scheduled Procedures Name Priority Associated Diagnoses Date/Ti [...] Documents on File Type Date Recorded Patient Entry Level Mechanical Engineer Expl anation POLST 03/23/2023 4:05 PM POLST [...] patient or by statute hierarchy) Care Teams Rate Setter Relationship Specialty Start Date End Date Barrett Dacosta MD [address] [place] [address] PCP - General Family Medicine 04/11/18 documented as of this encounter
--- OUTSIDE RECORDS SUMMARY | 2023-07-22 02:17 | External Medical Summary | Summary of Care ---
Author Name Unknown Organization [facility] Address [address] [facility] [place] [address] Phone [phone] Care Team Providers Care Hydroelectric Production Technician Name Role Phone Barrett Dacosta MD Primary Care Provider + Reason for Visit * Reason Comments Chemotherapy C1D22 Taxol/Carbo * Episode Based Medications (Routine) - Closed Specialty Diagnoses / Procedures Referred By Adali t Referred To Contact Diagnoses Encounter for antineoplastic chemotherapy Esophageal adenocarcinoma (HCC) Procedures [place] PALONOSETRON HCL NH CARBOPLATIN INJECTION [place] PACLITAXEL INJECTION Werner Roland MD [address] [place] [address] [place] [address] Anc Hem/Onc [address] [place] [address] Referral ID Status Reason Start Date Expiration Date Visits Re quested Visits Authorized [id number] Closed 05/03/2023 05/03/[phone] Encounter Details Date Type Department Care Team (Latest Contact Info) Description 05/30/2023 11:45 AM EDT Hem/Onc Treatment Hematology/Oncolog y Treatment, [address] [place] [address] Iovry, Chair 8 Hem Onc [address] [place] [address] Encounter for antineoplastic chemotherapy*; Esophageal adenocarcinoma [...] + high grade dysplasia (? Cancer--sent to [facility] for review)/esophagitis, martha 4 wk. CVA 05/26 [facility]. Left sided weakness. 05/26 TTE [facility] normal EF Grade 2 Farmer Dys. [...] mRNA, LNP-s, No Pre serve, 2-Dose Series ([employer]) 02/20/2021,06/17/2020,05/26/2020 COVID-19, MRNA-LNP, 23-24, P F, 30 MCG/0.3 mL, 12 YRS AND ABOVE, IM ([facility]) 01/06/2023 Covid-19, Mrna, Lnp-s, Pf, B ivalent, [...] Description 07/17/2023 12:45 PM EDT Imaging Radiology [facility] 1st [facility] [address] [place] [address] 07/28/2023 2:15 PM EDT Office Visit Hematology/Oncology [facility] 200 [facility] [place] [address] Werner Roland MD 200 [facility] [place] [address] 01/11/2024 8:00 AM EST Office Visit [facility] [address] [place] [address] Barrett Dacosta MD [address] [place] [address] 01/23/2024 11:00 AM EST Telemedicine [facility] [address] [place] [address] Earle Murphy MD [address] [place] [address] 07/18/2024 10:00 AM EDT Office Visit [facility] [address] [place] [address] Barrett Dacosta MD 132 [facility] [place] [address] Scheduled Procedures Name Priority Associated Diagnoses Date/Ti [...] Documents on File Type Date Recorded Patient Para Professional Expl anation POLST 03/23/2023 4:05 PM POLST [...] or by statute hierarchy) Care Teams Hydroelectric Production Technician Relationship Specialty Start Date End Date Barrett Dacosta MD [address] [place] [address] PCP - General Family Medicine 04/11/18 documented as of this encounter
--- OUTSIDE RECORDS SUMMARY | 2023-07-22 02:17 | External Medical Summary | Summary of Care ---
Author Name Unknown Organization [facility] Address [address] [facility] [place] [address] Phone [phone] Care Team Providers Care Senior Adults Director Name Role Phone Barrett Dacosta MD Primary Care Provider + Encounter Details Date Type Department Care Team (Late st Contact Info) Description 07/01/2023 Orders Only PATIENT PORTAL DO NOT DELETE THIS DEPT USED BY [place] [id number] Allergies No known active allergiesdocumented as of this encounter (statuses as of 07/01/2023) Medications Medication Sig Dispensed Refills Start Date [...] as of this encounter (statuses as of 07/01/2023) Active Problems Problem Noted Date Diagnosed Date [...] syndrome) 09/05/2022 Atrioventricular block, Mobitz type 1, [facility] 09/05/2022 1st degree AV block 09/05/2022 Anemia due to chronic kidney disease, on chronic dialysis 06/03/2022 Aneurysm of left vertebral artery 06/03/2022 Overview: 05/26 [facility] Type 2 diabetes mellitus wit h chronic [...] + high grade dysplasia (? Cancer--sent to [facility] for review)/esophagitis, martha 4 wk. CVA 05/26 [facility]. Left sided weakness. 05/26 TTE [facility] normal EF Grade 2 Farmer Dys. Moderate AV sclerosis and calcified mitral valve--stenosis + mod MR.mild MS. No shunt. 04/24 colon-polyp tubular adenoma. Declined f/u. 2012 adenoma. 08/18 TTE-possilbe vegetation. Mild LVH History of prostate cancer 01/09/2013 Overview: S/p resection Dr Whitehead [facility] HTN, goal below 140/90 06/04/2012 Gout 06/04/2012 Overview: 07/18 indomethicin non-form documented as of this encounter (statuses as of 07/01/2023) Resolved Problems Problem Noted Date Diagnosed Date [...] Hyperlipidemia with target LDL less than 130 06/04/ 3 11/06/2013 Overview: ICD-10 update of inactive term Malignant melanoma of face 06/04/2012 0 10/12/2016 Internal hemorrhoids 06/04/2012 017 documented as of this encounter (statuses as of 07/01/2023) Immunizations Name Administration Dates Next Due COVID-19 mRNA, LNP-s, No Pre serve, 2-Dose Series ([employer]) 02/20/2021,06/17/2020,05/26/2020 COVID-19, MRNA-LNP, 23-24, P F, 30 MCG/0.3 mL, 12 YRS AND ABOVE, IM ([facility]) 01/06/2023 Covid-19, Mrna, Lnp-s, Pf, B ivalent, 30 Mcg, IM, 12 yrs and above ([employer]) 12/24/2021 Hepatitis B Vaccine, Recombi nant, Adjuvanted, [...] on file documented as of this encounter Plan of Treatment Upcoming Encounters Date Type Department Care Team (Late st Contact Info) Description 07/17/2023 12:45 PM EDT Imaging Radiology [address] 132 [facility] [place] [address] 07/28/2023 2:15 PM EDT Office Visit Hematology/Oncology [facility] 200 [place] [address] Werner Roland MD 200 [place] [address] 01/11/2024 8:00 AM EST Office Visit [facility] 132 [facility] [place] [address] Barrett Dacosta MD 132 [facility] [place] [address] 01/23/2024 11:00 AM EST Telemedicine [place], [place] [address] [place] [address] Earle Murphy MD [address] [place] [facility] [place] [address] 07/18/2024 10:00 AM EDT Office Visit [facility] 132 [facility] [place] [address] Barrett Dacosta MD [address] [place] [address] Scheduled Procedures Name Priority Associated Diagnoses Date/Ti [...] Documents on File Type Date Recorded Patient Pocket Cutter Expl anation POLST 03/23/2023 4:05 PM POLST [...] patient or by statute hierarchy) Care Teams Senior Adults Director Relationship Specialty Start Date End Date Barrett Dacosta MD [address] [place] [address] PCP - General Family Medicine 04/11/18 documented as of this encounter
--- OUTSIDE RECORDS SUMMARY | 2023-07-22 02:17 | External Medical Summary | Summary of Care ---
Author Name Unknown Organization [facility] Address [address] [facility] [place] [address] Phone [phone] Care Team Providers Care Scuba Instructor Name Role Phone Barrett Dacosta MD Primary Care Provider + Reason for Visit * Reason Onset Date Comments Home Health 07/05/2023 Encounter Details Date Type Department Care Team (Late st Contact Info) Description 07/05/2023 Telephone Family Practice [facility] [address] [place] [id number] Barrett Dacosta MD [address] [facility] [place] [address] Home Health Allergies No known active allergiesdocumented as of this encounter (statuses as of 07/05/2023) Medications Medication Sig Dispensed Refills Start Date [...] as of this encounter (statuses as of 07/05/2023) Active Problems Problem Noted Date Diagnosed Date [...] high grade dysplasia (? Cancer--[place] [facility] [place]esophagitis, martha 4 [...] as of this encounter (statuses as of 07/05/2023) Resolved Problems Problem Noted Date Diagnosed Date [...] as of this encounter (statuses as of 07/05/2023) Immunizations Name Administration Dates Next Due COVID-19 mRNA, LNP-s, No Pre serve, 2-Dose Series ([employer]) 02/20/2021,06/17/2020,05/26/2020 COVID-19, MRNA-LNP, 23-24, P F, 30 MCG/0.3 mL, 12 YRS AND ABOVE, IM ([employer]Comir[employer]) 01/06/2023 Covid-19, Mrna, Lnp-s, Pf, B ivalent, [...] encounter Miscellaneous Notes * Telephone Encounter - Tg Arevalo LPN - 07/05/2023 2:34 PM EDT Admission/Start of Care Admission/Start of Care: Alejandrina DURHAM, Calling from: [facility] Referral ordered by: Barrtet Dacosta MD Referral received for: [facility] Start of care completed on: 07/05/23 - Plan to see patient once a week for wound care Report/Concerns of:None Symptoms: none Vitals: T 97.7 P 91 RR 18 BP 114/68 SP O2 96% R/A Lung sounds- Clear Weight - 116 lbs Blood sugar - N/A Narrative: Coccyx 1 cm x 1 cm and 0.1 cm depth Calmoseptine appied and then DSD Patient declined his cognitive testing today Next Nursing visit(s) on 07/13/23 They will call with any updates or additional concerns from the upcoming HH visit. Last Office Visit: 06/29/2023 Has patient been scheduled or seen in the office for a follow up visit: Yes 06/29/2023 Advised that orders will be signed by Barrett Dacosta MD and to fax to the office for signature. documented in this encounter Plan of Treatment Upcoming Encounters Date Type Department Care Team (Late st Contact Info) Description 07/17/2023 12:45 PM EDT Imaging Radiology [address] [place] [address] 07/28/2023 2:15 PM EDT Office Visit Hematology/Oncology [facility] [place] [address] Werner Roland MD [address] [facility] [place] [address] 01/11/2024 8:00 AM EST Office Visit [facility] [address] [place] [address] Barrett Dacosta MD [address] [place] [address] 01/23/2024 11:00 AM EST Telemedicine [facility] [address] [place] [address] Earle Murphy MD [address] [place] [address] 07/18/2024 10:00 AM EDT Office Visit [facility] [address] [place] [address] Barrett Dacosta MD 132 [facility] [place] [address] Scheduled Procedures Name Priority Associated Diagnoses Date/Ti [...] Documents on File Type Date Recorded Patient Cdl Program Coordinator Expl anation POLST 03/23/2023 4:05 PM POLST [...] patient or by statute hierarchy) Care Teams Scuba Instructor Relationship Specialty Start Date End Date Barrett Dacosta MD [address] [place] [address] PCP - General Family Medicine 04/11/18 documented as of this encounter
--- OUTSIDE RECORDS SUMMARY | 2023-07-22 02:17 | External Medical Summary | Summary of Care ---
Author Name Unknown Organization [facility] Address [address] [place] [address] Phone [phone] Care Team Providers Care Carton Packaging Machine Operator Name Role Phone Barrett Dacosta MD Primary Care Provider + Reason for Visit * Reason Comments Chemotherapy [id number] Taxol/Carbo * Episode Based Medications (Routine) - Closed Specialty Diagnoses / Procedures Referred By Adali t Referred To Contact Diagnoses Encounter for antineoplastic chemotherapy Esophageal adenocarcinoma (HCC) Procedures AL PALONOSETRON HCL AL CARBOPLATIN INJECTION AL PACLITAXEL INJECTION Werner Roland MD [address] [place] [address] [place] [address] Anc Hem/[place]c [address] [place] [address] Referral ID Status Reason Start Date Expiration Date Visits Re quested Visits Authorized [id number] Closed 05/03/2023 05/03/[phone] Encounter Details Date Type Department Care Team (Latest Contact Info) Description 05/30/2023 11:45 AM EDT Hem/Onc Treatment Hematology/Oncolog y Treatment, [address] [place] [address] [place], Chair 8 Hem Onc [address] [place] [address] Encounter for antineoplastic chemotherapy*; Esophageal adenocarcinoma [...] for review)/esophagitis, martha 4 wk. CVA 05/26 [facility]. Left sided weakness. 05/26 TTE [facility] normal EF Grade 2 Farmer [...] mRNA, LNP-s, No Pre serve, 2-Dose Series ([employer]) 02/20/2021,06/17/2020,05/26/2020 COVID-19, MRNA-LNP, 23-24, P F, 30 MCG/0.3 mL, 12 YRS AND ABOVE, IM ([employer]) 01/06/2023 Covid-19, Mrna, Lnp-s, Pf, B [...] Description 07/17/2023 12:45 PM EDT Imaging Radiology [facility] 1st [facility] [address] [place] [address] 07/28/2023 2:15 PM EDT Office Visit Hematology/Oncology [facility] [address] [facility] [place] [address] Werner Roland MD [address] [facility] [place] [address] 01/11/2024 8:00 AM EST Office Visit [facility] [address] [place] [address] Barrett Dacosta MD [address] [place] [address] 01/23/2024 11:00 AM EST Telemedicine [facility] [address] [place] [address] Earle Murphy MD [address] [place] [address] 07/18/2024 10:00 AM EDT Office Visit [facility] [address] [place] [address] Barrett Dacosta MD [address] [facility] [place] [address] Scheduled Procedures Name Priority Associated Diagnoses Date/Ti [...] Documents on File Type Date Recorded Patient Research Librarian Expl anation POLST 03/23/2023 4:05 PM POLST [...] patient or by statute hierarchy) Care Teams Carton Packaging Machine Operator Relationship Specialty Start Date End Date Barrett Dacosta MD [address] [place] [address] PCP - General Family Medicine 04/11/18 documented as of this encounter
--- OUTSIDE RECORDS SUMMARY | 2023-07-22 02:18 | External Medical Summary | Summary of Care ---
Author Name Unknown Organization [facility] Address [address] [place] [facility] [place] [place] [address] Phone [phone] Care Team Providers Care Casing Runner Name Role Phone Barrett Dacosta MD Primary Care Provider + Reason for Visit * Reason Onset Date Comments Test Results Lab 06/12/2023 Encounter Details Date Type Department Care Team (Late st Contact Info) Description 06/12/2023 Telephone Hematology/Oncology [facility] 200 [facility] [place] [address] Jennifer Houser MD [address] [place] [address] Test Results Lab Allergies No known active allergiesdocumented as of this encounter (statuses as of 06/12/2023) Medications Medication Sig Dispensed Refills Start Date [...] or Pain, Moderate. 120 Tablet 0 05/15/2023 Active dexAMETHasone 4 MG Oral Tablet (Decadron)Indications :Esophageal adenocarcinoma (HCC) Take 3 tablets (12mg) the night before and morning of treatment 6 Tablet 0 06/06/2023 Active documented as of this encounter (statuses as of 06/12/2023) Active Problems Problem Noted Date Diagnosed Date [...] left vertebral artery 06/03/2022 Overview: 05/26 CTA [facility] Type 2 diabetes mellitus [...] + high grade dysplasia (? Cancer--sent to [facility] for [place])/esophagitis, martha 4 wk. CVA 05/26 [facility]. Left sided weakness. 05/26 TTE [facility] normal EF Grade 2 Farmer Dys. Moderate AV sclerosis and calcified mitral valve--stenosis + mod MR.mild MS. No shunt. 04/24 colon-polyp tubular adenoma. Declined f/u. 2012 adenoma. 08/18 TTE-possilbe vegetation. Mild LVH History of prostate cancer 01/09/2013 Overview: S/p resection Dr Whitehead [facility] HTN, goal below 140/90 06/04/2012 Gout 06/04/2012 Overview: 07/18 indomethicin non-form documented as of this encounter (statuses as of 06/12/2023) Resolved Problems Problem Noted Date Diagnosed Date [...] as of this encounter (statuses as of 06/12/2023) Immunizations Name Administration Dates Next Due COVID-19 mRNA, LNP-s, No Pre serve, 2-Dose Series ([employer]) 02/20/2021,06/17/2020,05/26/2020 Covid-19, Mrna, Lnp-s, Pf, B ivalent, [...] as of this encounter Miscellaneous Notes * Addendum Note - Jennifer Houser MD - 06/12/2023 1:58 PM EDTAddended by: JENNIFER HOUSER on: 06/12/2023 01:58 PM Modules accepted: Orders * Telephone Encounter - Audrey Lieberman RN - 06/12/2023 1:39 PM EDT Called Jacklyn, who verbalized understanding that appt tomorrow is being cancelled. She confirmed that last day of radiation is this week, no further chemotherapy needed. Reviewed neutropenic precautions and to call with temp 100.5 or higher or any sign of infection, she verbalized understanding. Dr Houser: please place alteration to cancel last treatment due to low blood counts. Thanks! * Telephone Encounter - Ava Hess OSA - 06/12/2023 1:17 PM EDT Canceled tx for tomorrow per note below * Telephone Encounter - Audrey Lieberman RN - 06/12/2023 1:15 PM EDT Scheduling: please cancel tomorrows appt for treatment. Nursing will notify patient. * Addendum Note - Rommel Calderon RN - 06/12/2023 9:58 AM EDTAddended by: ROMMEL CALDERON on: 06/12/2023 09:58 AM Modules accepted: Orders * Telephone Encounter - Rommel Calderon RN - 06/12/2023 9:[address] Houser- would like to cancel patients last cycle due to neutropenia. [place] updated. Called patient to make him aware. Unable to leave VM on his cell, home, or his 's cell #. Attempted his 's work number, continues to ring with no answer. N:S- please attempt to reach patient later today as I was unable to speak with him or his and I was unable to leave a VM. * Telephone Encounter - Rommel Calderon RN - 06/12/2023 9:11 AM EDT Pt WBC 0.44, due for Taxol/Carbo tomorrow. Awaiting Dr. Houser's review. documented in this encounter Plan of Treatment Upcoming Encounters Date Type Department Care Team (Late st Contact Info) Description 06/22/2023 7:45 AM EDT Office Visit Hematology/Oncology [facility] [place] [address] [place] [phone] Werner Roland MD [address] [place] [address] 06/29/2023 8:00 AM EDT Office Visit [facility] [address] [place] [address] Barrett Dacosta MD [address] [place] [address] 01/23/2024 11:00 AM EST Telemedicine [facility] [place] [address] [place] [address] Earle Murphy MD [address] [place] [address] Scheduled Procedures Name Priority Associated Diagnoses Date/Ti [...] Exam 07/27/2023 07/26/2022 (Do ne elsewhere), 07/26/2022, 10/05/2021, Additional history exists Depression Screening 09/02/2023 09/01/2022, [...] neoplasm of esophagus, unspecified location (HCC)- Primary documented in this encounter Advance Directives Documents on File Type Date Recorded Patient Network Services Project Manager Expl anation POLST 03/23/2023 4:05 PM [...] patient or by statute hierarchy) Care Teams Casing Runner Relationship Specialty Start Date End Date Barrett Dacosta MD [address] [place] [address] PCP - General Family Medicine 04/11/18 documented as of this encounter
--- OUTSIDE RECORDS SUMMARY | 2023-07-22 02:18 | External Medical Summary | Summary of Care ---
Author Name Unknown Organization [facility] Address [address] [place] [facility] [place] [address] Phone [phone] Care Team Providers Care Cement Gun Operator Name Role Phone Barrett Dacosta MD Primary Care Provider + Reason for Visit * Reason Onset Date Comments Test Results Lab 06/12/2023 Encounter Details Date Type Department Care Team (Late st Contact Info) Description 06/12/2023 Telephone Hematology/Oncology [facility] [address] [facility] [place] [address] Olu Pickard MD [address] [place] [address] Test Results Lab Allergies No known active [...] left vertebral artery 06/03/2022 Overview: 05/26 CTA [facility] Type 2 diabetes mellitus wit h chronic [...] for review)/esophagitis, martha 4 wk. CVA 05/26 [facility]. Left sided weakness. 05/26 TTE [facility] normal EF Grade 2 Farmer Dys. Moderate AV sclerosis and calcified mitral valve--stenosis + mod MR.mild MS. No shunt. 04/24 colon-polyp tubular adenoma. Declined f/u. 2012 adenoma. 08/18 TTE-possilbe vegetation. Mild LVH History of prostate cancer 01/09/2013 Overview: S/p resection Dr Whitehead [facility] HTN, goal below 140/90 [...] mRNA, LNP-s, No Pre serve, 2-Dose Series ([employer]) 02/20/2021,06/17/2020,05/26/2020 Covid-19, Mrna, Lnp-s, Pf, B ivalent, [...] encounter Miscellaneous Notes * Telephone Encounter - Ava Hess OSA - 06/12/2023 1:17 PM EDT Canceled tx for tomorrow per note below * Telephone Encounter - Audrey Lieberman RN - 06/12/2023 1:15 PM EDT Scheduling: please cancel tomorrows appt for treatment. Nursing will notify patient. * Addendum Note - Rommel Camejo RN - 06/12/2023 9:58 AM EDTAddended by: ROMMEL CAMEJO on: 06/12/2023 09:58 AM Modules accepted: Orders * Telephone Encounter - Rommel Camejo RN - 06/12/2023 9:[address] Pickard- would like to cancel patients last cycle due to neutropenia. [place] updated. Called patient to make him aware. Unable to leave VM on his cell, home, or his 's cell #. Attempted his 's work number, continues to ring with no answer. N:S- please attempt to reach patient later today as I was unable to speak with him or his and I was unable to leave a VM. * Telephone Encounter - Rommel Camejo RN - 06/12/2023 9:11 AM EDT Pt WBC 0.44, due for Taxol/Carbo tomorrow. Awaiting Dr. Pickard's review. documented in this encounter Plan of Treatment Upcoming Encounters Date Type Department Care Team (Late st Contact Info) Description 06/22/2023 7:45 AM EDT Office Visit Hematology/Oncology [facility] [address] [facility] [place] [address] Werner Roland MD [address] [facility] [place] [address] 06/29/2023 8:00 AM EDT Office Visit Family Practice [facility] [address] [place] [address] Barrett Dacosta MD [address] [place] [address] 01/23/2024 11:00 AM EST Telemedicine [facility] [address] [place] [address] Earle Murphy MD [address] [place], [place] [id number] Scheduled Procedures Name Priority Associated Diagnoses Date/Ti me COLONOSCOPY, FLEXIBLE; WITH ENDOSCOPIC MUCOSAL RESECTION Recall History of colonic polyps Health Maintenance Due Date Last Done Comments DTaP,Tdap,and Td Vaccines (3 - Td or Tdap) 11/18/2020 11/18/2010, 01/05/2010 COLONOSCOPY-EVERY 3 YRS AGES 18-100 05/03/2021 05/03/2018, 05/03/2018, 07/20/2012, Additional history exists Diabetic Foot Exam 03/01/2023 03/01/2022, 1 04/21/2020, 02/14/2020, Additional history exists HbA1c 07/13/2023 01/12/2023, 0 05/2022, 08/16/2021, Additional history exists Diabetic Eye [...] Documents on File Type Date Recorded Patient Rug Scratcher Expl anation POLST 03/23/2023 4:05 PM POLST [...] patient or by statute hierarchy) Care Teams Cement Gun Operator Relationship Specialty Start Date End Date Barrett Dacosta MD [address] [place] [address] PCP - General Family Medicine 04/11/18 documented as of this encounter
--- OUTSIDE RECORDS SUMMARY | 2023-07-22 02:18 | External Medical Summary | Summary of Care ---
Author Name Unknown Organization [facility] Address [address] [facility] [place] [address] Phone [phone] Care Team Providers Care Bottle Tester Name Role Phone Marley Weathers MD Primary Care Provider + Reason for Visit * Reason Onset Date Comments Medication Refill 06/16/2023 Encounter Details Date Type Department Care Team (Late st Contact Info) Description 06/16/2023 Refill Family Practice [facility] [address] [place] [phone] Marley Weathers MD [address] [place] [address] S/p left hip fracture; Esophageal adenocarcinoma (HCC) Allergies No known active allergiesdocumented as of this encounter (statuses as of 06/17/2023) Medications Medication Sig Dispensed Refills Start Date [...] Pain, Moderate. 120 Tablet 0 06/17/2023 Active oxyCODONE HCl 10 MG Oral Tablet (Roxicodone)Indicati ons:S/p left hip fracture,Esophageal adenocarcinoma (HCC) Take 1 Tablet by mouth every 6 hours as needed for Pain, Severe or Pain, Moderate. 120 Tablet 0 05/15/2023 Discontinue d(Refill) documented as of this encounter (statuses as of 06/17/2023) Active Problems Problem Noted Date Diagnosed Date [...] vertebral artery 06/03/2022 Overview: 05/26 CTA [facility] Type 2 diabetes mellitus wit h [...] high grade dysplasia (? Cancer--sent to [facility] for review)/esophagitis, martha 4 wk. CVA 05/26 [facility]. Left sided weakness. 05/26 TTE [facility] normal EF Grade 2 Farmer Dys. Moderate AV sclerosis and calcified mitral valve--stenosis + mod MR.mild MS. No shunt. 04/24 colon-polyp tubular adenoma. Declined f/u. 2012 adenoma. 08/18 TTE-possilbe vegetation. Mild LVH History of prostate cancer 01/09/2013 Overview: S/p resection Dr Whitehead [facility] HTN, goal below 140/90 06/04/2012 Gout 06/04/2012 Overview: 07/18 indomethicin non-form documented as of this encounter (statuses as of 06/17/2023) Resolved Problems Problem Noted Date Diagnosed Date [...] as of this encounter (statuses as of 06/17/2023) Immunizations Name Administration Dates Next Due COVID-19 mRNA, LNP-s, No Pre serve, 2-Dose Series ([employer]) 02/20/2021,06/17/2020,05/26/2020 Covid-19, Mrna, Lnp-s, Pf, B ivalent, [...] encounter Miscellaneous Notes * Telephone Encounter - Marley Weathers MD - 06/17/2023 10:05 AM EDT Signed Prescriptions: Disp Refills oxyCODONE HCl 10 MG Oral Tablet (Roxicodon*120 Ta*0 Sig: Take 1 Tablet by mouth every 6 hours as needed for Pain, Severe or Pain, Moderate.Authorizing Provider: MARLEY WEATHERS * Telephone Encounter - Marley Weathers MD - 06/17/2023 10:05 AM EDT "I have reviewed the patient's controlled substance dispensing history in the Prescription Drug Monitoring Program in compliance with the [facility] regulations before prescribing a controlled substance." * Telephone Encounter - Marley Weathers MD - 06/17/2023 10:05 AM EDT Signed Prescriptions: Disp Refills oxyCODONE HCl 10 MG Oral Tablet (Roxicodon*120 Ta*0 Sig: Take 1 Tablet by mouth every 6 hours as needed for Pain, Severe or Pain, Moderate. Authorizing Provider: MARLEY WEATHERS * Telephone Encounter - Josette Hsu RN - 06/16/2023 11:16 AM EDT Did you pend patient's preferred pharmacy and medication before forwarding?yes Pharmacy: [id number] [facility] Pending Prescriptions: Disp Refills oxyCODONE HCl 10 MG Oral Tablet (Roxicodo*120 Ta*0 Sig: Take 1 Tablet by mouth every 6 hours as needed for Pain, Severe or Pain, Moderate. Last Visit: 04/11/2023 (in office), 10/02/2019 (telemedicine) Next Visit: 06/29/2023 If no future appointments scheduled, and last appointment is greater than a year ago, please schedule patient for a follow-up appointment Last date the medication was ordered: 05/15/23 Is this request for a controlled substance?Yes, What was the last refill date 05/15/23 w/ quantity 120 and dosage 30 day supply and Urine Drug Screen Not completed Urine Drug Screen: Results for orders placed [...] Valid Interpretation Normal Creatinine, U 17 Specific [place], U 1.0063 Narrative Cutoff Concentrations: Drug Level [...] 06/22/2023 7:45 AM EDT Office Visit Hematology/Oncology [facility] [address] [facility] [place] [address] Werner Roland MD [address] [facility] [place] [address] 06/29/2023 8:00 AM EDT Office Visit Family Practice [facility] [address] [place] [address] Marley Weathers MD [address] [facility] [place] [address] 01/23/2024 11:00 AM EST Telemedicine [facility] [address] [place] [address] Earle Murphy MD [address] [place] [address] Scheduled Procedures Name Priority Associated Diagnoses Date/Ti [...] Documents on File Type Date Recorded Patient Art Objects Supervisor Expl anation POLST 03/23/2023 4:05 PM [...] patient or by statute hierarchy) Care Teams Bottle Tester Relationship Specialty Start Date End Date Marley Weathers MD [address] [place] [address] PCP - General Family Medicine 04/11/18 documented as of this encounter
--- OUTSIDE RECORDS SUMMARY | 2023-07-22 02:18 | External Medical Summary | Summary of Care ---
Author Name Unknown Organization [facility] Address [address] [facility] [place] [place] [address] Phone [phone] Care Team Providers Care Interpreter Deaf Name Role Phone Barrett Dacosta MD Primary Care Provider + Reason for Visit * Reason Onset Date Comments Test Results Lab 06/12/2023 Encounter Details Date Type Department Care Team (Late st Contact Info) Description 06/12/2023 Telephone Hematology/Oncology [facility] [address] [facility] [place] [place] [address] Olu Pickard MD [address] [place] [address] Test Results Lab Allergies No known active [...] artery 06/03/2022 Overview: 05/26 CTA [facility] Type 2 diabetes mellitus wit h chronic [...] + high grade dysplasia (? Cancer--[place] [facility] [place]esophagitis, martha 4 wk. CVA 05/26 [facility]. Left sided weakness. 05/26 TTE [facility] normal EF Grade 2 Farmer Dys. Moderate [...] mRNA, LNP-s, No Pre serve, 2-Dose Series ([employer]) 02/20/2021,06/17/2020,05/26/2020 Covid-19, Mrna, Lnp-s, Pf, B ivalent, [...] encounter Miscellaneous Notes * Telephone Encounter - Audrey Lieberman RN [...] cancel patients last cycle due to neutropenia. [place] updated. Called patient to make him aware. [...] Care Team (Late st Contact Info) Description 06/13/2023 8:00 AM EDT Hem/Onc Treatment Hematology/Oncology Treatment, [place] [address] [place] [phone] [place], Chair 5 Hem Onc [facility] [address] [place] [address] 06/22/2023 7:45 AM EDT Office Visit Hematology/Oncology [facility] [address] [facility] [place] [address] Werner Roland MD [address] [facility] [place] [address] 06/29/2023 8:00 AM EDT Office Visit Family [facility] [address] [facility] [place] [address] Barrett Dacosta MD [address] [facility] [place] [address] 01/23/2024 11:00 AM EST Telemedicine [facility] [address] [place] [address] Earle Murphy MD [address] [place], [place] [phone] Scheduled Procedures Name Priority Associated Diagnoses Date/Ti [...] Documents on File Type Date Recorded Patient Speaker Wirer Expl anation POLST 03/23/2023 4:05 PM POLST [...] patient or by statute hierarchy) Care Teams Interpreter Deaf Relationship Specialty Start Date End Date Barrett Dacosta MD [address] [place] [address] PCP - General Family Medicine 04/11/18 documented as of this encounter
--- OUTSIDE RECORDS SUMMARY | 2023-07-22 02:18 | External Medical Summary | Summary of Care ---
Author Name Unknown Organization [facility] Address [address] [place] [address] Phone [phone] Care Team Providers Care Multicultural Internship Name Role Phone Barrett Dacosta MD Primary Care Provider + Reason for Referral * Evaluate & Treat - Unlimited Visits (Within 10 days (routine)) - Authorized Specialty Diagnoses / Procedures Referred By Contac t Referred To Contact HOME CARE / Home Care Diagnoses Pressure injury of sacral region, stage 2 (HCC) Barrett Dacosta MD [address] [place] [address] Referral ID Status Reason Start Date Expiration Date Visits Requested Visits Authorized [id number] Authorized Specialty Services Required 06/29/2023 999 [id number] Question Answer Referral Priority Within 10 days (routine) Where should this appointment be scheduled? [facility] Documentation of [id number] Encounter Addendum Patient Name: Ricky Cason I certify that this patient is under my care and that I, or a nurse practitioner or physician's social research assistant working with me, had a [id number] encounter that meets the physician jarf-ac-inod encounter requirements with this patient on: 06/29/2023 The encounter with the patient was in whole, or in part, for the following medical condition, which is the primary reason for home health care (List medical condition): Wound care I certify that, based on my findings, the following services are medically necessary home health services: Nursing To provide the following care/treatments: (All hospitalists not following the patient after discharge should complete this section): sacral ulcer treatment Primary Care Physician to follow home care plan of care after discharge: Barrett Dacosta MD My clinical findings support the need for the above services because: new ulcer Further, I certify that my clinical findings support that this patient is homebound (i.e. Absences from home require considerable and taxing effort and are for medical reasons or temple services or infrequently or of short duration when for other reason) because: Leaving house requires considerable and taxing effort and are for medical reasons Physician Signature: ____Barrett Dacosta MD Date of Signature: Physician Printed Name: Barrett Dacosta MD Reason for Visit * Reason Comments Return Visit 6 month follow up Encounter Details Date Type Department Care Team (Latest Contact Info) Description 06/29/2023 8:00 AM EDT Office Visit Family [facility] [place] [address] [place] [address] Barrett Dacosta MD [address] [place] [address] Esophageal adenocarcinoma (HCC)*; Primary open-angle glaucoma, bilateral, indeterminate stage; Type 2 diabetes mellitus with chronic kidney disease on chronic dialysis, without long-term current use of insulin (HCC); HTN, goal below 140/90; ESRD on dialysis (HCC); 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 Cancer--[place] [facility] [place]esophagitis, martha 4 wk. CVA 05/26 [facility]. Left sided weakness. 05/26 TTE [facility] normal EF Grade 2 Farmer Dys. Moderate AV sclerosis and calcified mitral valve--stenosis + mod MR.mild MS. No shunt. 04/24 colon-polyp tubular adenoma. Declined f/u. 2012 adenoma. 08/18 TTE-possilbe vegetation. Mild LVH History of prostate cancer 01/09/2013 Overview: S/p resection Dr Whitehead [facility] HTN, goal below 140/90 06/04/2012 Gout 06/04/2012 Overview: 07/18 indomethicin non-form documented as of this encounter (statuses as of 06/29/2023) Resolved Problems Problem Noted Date Diagnosed Date [...] as of this encounter (statuses as of 06/29/2023) Immunizations Name Administration Dates Next Due COVID-19 mRNA, LNP-s, No Pre serve, 2-Dose Series (Pirate3D) 02/20/2021,06/17/2020,05/26/2020 COVID-19, MRNA-LNP, 23-24, P F, 30 MCG/0.3 mL, 12 YRS AND ABOVE, IM ([facility] CSHub-Comirnat) 01/06/2023 Covid-19, Mrna, Lnp-s, Pf, B ivalent, [...] Sign Reading Time Taken Comments Blood Pressure 112/64 06/29/2023 8:01 AM EDT Pulse 81 06/29/2023 8:01 AM EDT Temperature - - Respiratory Rate 16 06/29/2023 8:01 AM EDT Oxygen Saturation 99% 06/29/2023 8:01 AM EDT Inhaled Oxygen Concentration - - Weight - - Height - - Body Mass Index - - documented in this encounter Progress Notes * Barrett Dacosta MD - 06/29/2023 1:47 PM EDT SUBJECTIVE: Ricky W Cason is a 78 year old male here for Return Visit (6 month follow up) . Here for f/u with . Patient completed radiation therapy and the opinion of June 2023. [id number] cGy total. Completed chemotherapy with Dr. Roland. Has 1 month follow-up PET scan, actually about 3 weeks. Overall feeling okay. Some ongoing fatigue. Continues to be frustrated by his ostomy bag blowing off with extra gas. Often happens at night. C/o rhinorrhea x2 weeks, sinus pressure.; Occasionally with some abdominal pain that has resolved with magic mouthwash and honey swallowing. He developed a sore on the top of his buttock cleft about a week ago opened up. No significant drainage. He has not had a pressure ulcer in the past. Admits appetite remains fairly low, using about 2 shakes a day sometimes less. ROS: Negative except above. Past Medical History: Diagnosis Date Abnormal echocardiogram 08/19/2014 Anemia due to chronic kidney disease, on chronic dialysis ([facility]) 06/03/2022 Anemia in stage 4 chronic kidney disease ([facility]) 02/19/2021 Aneurysm of left vertebral artery ([facility]) 06/03/2022 Benign neoplasm of colon 07/20/12 COLONOSCOPY FLEXIBLE PROXIMAL DIAGNOSTIC performed by Rukhsana Gunter DO at [facility],ADENOMATOUS POLYPS REPEAT COLONOSCOPY IN 5 YEARS Bilateral low back pain without sciatica 02/19/2015 Cerebrovascular accident (CVA) due to thrombosis of right middle cerebral artery ([facility]) 09/05/2022 Hx - CVA in May 2022 Constipation due to opioid therapy 03/29/2018 Diabetes mellitus with nephropathy ([facility]) 04/09/2018 Dyslipidemia, goal LDL below [...] Status post lumbar spinal fusion 06/17/2014 06/11/14 Jimmieetti Type 2 diabetes mellitus with chronic kidney disease on chronic dialysis ([facility]) 03/01/2022 Type 2 diabetes mellitus with hemoglobin A1c goal of less than 8.0% ([facility]) 11/27/2017 Past Surgical History: Procedure Laterality Date AV ACCESS, DIRECT ANASTOMOSIS Left 02/09/2023 ARTERIOVENOUS ANASTOMOSIS OPEN DIRECT ANY SITE performed by Brian Payton MD at OR [facility] COLONOSCOPY, DIAGNOSTIC (RECTUM) 07/20/2012 COLONOSCOPY FLEXIBLE PROXIMAL DIAGNOSTIC performed by Rukhsana Gunter DO at ENDOSCOPY [facility],ADENOMATOUS POLYPS REPEAT COLONOSCOPY IN 5 YEARS COLONOSCOPY, DIAGNOSTIC (RECTUM) 05/03/2018 diverticulosis sigmoid colon/biopsies show adenomatous polyps/recall 3 years/COLONOSCOPY FLEXIBLE PROXIMAL DIAGNOSTIC performed by Rukhsana Gunter DO at ENDOSCOPY [facility] COLONOSCOPY/REMOVE LESION 2009 EGD, FLEXIBLE, ENDO MUCOSAL RESECTION N/A 02/16/2023 ESOPHAGOGASTRODUODENOSCOPY (EGD), FLEXIBLE, TRANSORAL: MUCOSAL RESECTION performed by Karlee Buitrago MD at OR [facility] EGD, W/ENDOSCOPIC US N/A 01/13/2023 partially obstructing tumor GEJ/one benign appearing enlarged lymph node/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 ric INJECTION LUMBAR/SACRAL 03/28/2014 INJECTION SPINE LUMBAR OR SACRAL performed by Vicente Mcpherson DO at OR [facility] LAPAROSCOPY, W/ INSERT INTRAPERITONEAL CATH N/A 01/12/2022 LAPAROSCOPIC INSERTION INTRAPERITONEAL CANNULA OR CATHETER performed by Florentin Will MD at OR [facility] LUMBAR / SACRAL EPIDURAL, SINGLE LEVEL 08/08/2016 INJECTION TRANSFORAMINAL EPIDURAL LUMBAR OR SACRAL performed by Vicente Mcpherson DO at OR [facility] LUMBAR / SACRAL EPIDURAL, SINGLE LEVEL 08/25/2016 INJECTION TRANSFORAMINAL EPIDURAL LUMBAR OR SACRAL performed by Vicente Mcpherson DO at OR [facility] LUMBAR SPINE FUSION W/BONE GRAFT 06/11/2014 Dr Corrales M[facility] AJCC STAGE 0 OR 1A DOCUMENTED 1998 face NEEDLE/PUNCH BIOPSY OF PROSTATE 11/06/2012 Prostate,Needle/Punch Biopsy OTHER 09/16/2022 Permacath placement for HD @[facility] SC COLOSTOMY/SKIN LEVEL CECOSTOMY 09/09/2022 Dr Jorge [facility] SC EXPLORATORY LAPAROTOMY CELIOTOMY W/WO BIOPSY SPX 09/09/2022 Dr Jorge [facility]. ex lap for SBO/sigmoid colostomy, removal PD catheter. 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 236mL 5 traMADol HCl 50 MG Oral Tablet (Ultram) Take 2 Tablets by mouth every 6 hours as needed for Pain, Severe. 240 Tablet 0 Sevelamer Carbonate 800 MG Oral Tablet (Renvela) TAKE 1 TABLET BY MOUTH THREE TIMES A DAY WITH MEALS Torsemide 100 MG Oral Tablet (Demadex) Take 1 Tablet by mouth in the morning. Vitamin D3 50 MCG (2000 UT) Oral Capsule Take 1 Capsule by mouth in the morning. 90 Capsule 3 Omeprazole 40 MG Oral Capsule Delayed Release (PriLOSEC) Take 1 Capsule by mouth in the morning. 90Capsule 3 Naproxen Sodium 220 MG Oral Capsule (Aleve) Take 1 Capsule by mouth 2 times a day with morning and evening meals. Ondansetron HCl 8 MG Oral Tablet (Zofran) Take 1 Tablet by mouth every 8 hours as needed for Nausea. 30 Tablet 2 Prochlorperazine Maleate 10 MG Oral Tablet (Compazine) Take 1 Tablet by mouth every 6 hours as needed for Nausea. 30 Tablet 2 dexAMETHasone 4 MG Oral Tablet (Decadron) Take 3 tablets (12mg) the night before and morning of treatment 6 Tablet 0 oxyCODONE HCl 10 MG Oral Tablet (Roxicodone) Take 1 Tablet by mouth every 6 hours as needed for Pain, Severe or Pain, Moderate. 120 Tablet 0 Fluticasone Propionate 50 MCG/ACT Nasal Suspension (Flonase) Administer 2 Sprays into each nostril in the morning and 2 Sprays before bedtime. 18 g 5 No current facility-administered medications for this visit. Physical: BP 112/64 | Pulse 81 | Resp 16 | SpO2 99% General-No apparent Distress, frail appearing, in wheelchair Head, Eyes, Ears, Nose, Throat--Normocephalic, atraumatic +pale boggy nasal mucosa. Neck-Supple Lymph-no lymphadenopathy Lungs-Clear to Auscultation bilaterally Cardiovascular--Regular rate & Rhythm, +s1, s2, no murmur Abdomen-soft, nontender, nondistended + bowel sounds Extremities--no edema Vasc AV fistula LUE Skin +1cm round ulcer stage 2, yellow underneath, no redness, no drainage. Neuro-alert & oriented x3 (C15.9) Esophageal adenocarcinoma (HCC) (primary encounter diagnosis) Plan: f/u onc as scheduled Sinus pressure--suspect allergies--start miki or zyrtec, Flonase 2 sprays BID (H40.1134) Primary open-angle glaucoma, bilateral, indeterminate stage Plan: f/u ophth (E11.22, N18.6, Z99.2) Type 2 diabetes mellitus with chronic kidney disease on chronic dialysis, without long-term current use of insulin ([facility]) Plan: diet controlled. No meds. Normal A1c recently. 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 I spent a total of 40-54 minutes (exact time 44 mins) on the date of service in [...] Nursing Notes * Dang Mota LPN - 06/29/2023 8:01 AM EDT The patient has been properly identified by confirmation of name and date of . Chief Complaint Patient presents with Return Visit 6 month follow up documented in this encounter Plan of Treatment Upcoming Encounters Date Type Department Care Team (Late st Contact Info) Description 07/17/2023 12:45 PM EDT Imaging Radiology [address] [place] [address] 07/28/2023 2:15 PM EDT Office Visit Hematology/Oncology [facility] [address] [facility] [place] [phone] Werner Roland MD [address] [facility] [place] [address] 01/11/2024 8:00 AM EST Office Visit [facility] [address] [place] [address] Barrett Dacosta MD [address] [place] [address] 01/23/2024 11:00 AM EST Telemedicine [facility] [address] [place] [address] Earle Murphy MD [address] [place] [address] 07/18/2024 10:00 AM EDT Office Visit [facility] [address] [place] [address] Barrett Dacosta MD [address] [place] [address] Scheduled Orders Name Type Priority Associated Diagnoses Orde r Schedule HEMOGLOBIN A1C Lab Routine Expected: 06/29/2023 (Approximate), Expires: 07/28/2024 Scheduled Procedures Name Priority Associated Diagnoses Date/Ti me COLONOSCOPY, FLEXIBLE; WITH ENDOSCOPIC MUCOSAL RESECTION Recall History of colonic polyps Scheduled Referrals Name Type Priority Associated Diagnoses Orde r Schedule HOME HEALTH REFERRAL OP Referral Within 10 days (routine) Pressure injury of sacral region, stage 2 (HCC) Ordered: 06/29/2023 Health Maintenance Due Date Last Done Comments [...] Primary Malignant neoplasm of esophagus, unspecified site Primary open-angle glaucoma, bilateral, indeterminate stage Type 2 diabetes mellitus with chronic kidney disease on chronic dialysis, without long-term current use of insulin (HCC) HTN, goal below 140/90 Unspecified essential hypertension ESRD on dialysis (HCC) End stage renal disease Colostomy status (HCC) Colostomy status Sinus congestion Other diseases of nasal cavity and sinuses Pressure injury of sacral region, stage 2 (HCC) documented in this encounter Advance Directives Documents on File Type Date Recorded Patient Medication Aide Expl anation POLST 03/23/2023 4:05 PM POLST [...] patient or by statute hierarchy) Care Teams Multicultural Internship Relationship Specialty Start Date End Date Barrett Dacosta MD [address] [place] [address] PCP - General Family Medicine 04/11/18 documented as of this encounter"
--- OUTSIDE RECORDS SUMMARY | 2023-07-22 02:18 | External Medical Summary | Summary of Care ---
Author Name Unknown Organization [facility] Address [address] [place] [address] Phone [phone] Care Team Providers Care Tawer Name Role Phone Barrett Dacosta MD Primary Care Provider + Reason for Referral * Precert (Within 10 days (routine)) - Pending Review Specialty Diagnoses / Procedures Referred By Contac t Referred To Contact Radiology Diagnoses Esophageal adenocarcinoma (HCC) Procedures PET CT SKULL BASE TO MID-THIGH FDG Werner Roland MD 200 [facility] [place] [address] Referral ID Status Reason Start Date Expiration Date V isits Requested Visits Authorized [id number] Pending Review 06/22/2023 999 999 Reason for Visit * Reason Comments Follow Up Encounter Details Date Type Department Care Team (Latest Contact Info) Description 06/22/2023 7:45 AM EDT Office Visit Hematology/Oncology [facility] [address] [place] [phone] Werner Roland MD 200 [facility] [place] [address] Esophageal adenocarcinoma (HCC)* Allergies No known active allergiesdocumented as of this encounter (statuses as of 06/22/2023) Medications Medication Sig Dispensed Refills Start Date [...] Pain, Moderate. 120 Tablet 0 06/17/2023 Active documented as of this encounter (statuses as of 06/22/2023) Active Problems Problem Noted Date Diagnosed Date [...] Overview: 05/26 [facility] Type 2 diabetes mellitus wit h chronic [...] + high grade dysplasia (? Cancer--sent to [facility] for review)/esophagitis, martha [...] as of this encounter (statuses as of 06/22/2023) Resolved Problems Problem Noted Date Diagnosed Date [...] as of this encounter (statuses as of 06/22/2023) Immunizations Name Administration Dates Next Due COVID-19 mRNA, LNP-s, No Pre serve, 2-Dose Series (Metaps) 02/20/2021,06/17/2020,05/26/2020 Covid-19, Mrna, Lnp-s, Pf, B ivalent, [...] Sign Reading Time Taken Comments Blood Pressure 125/74 06/22/2023 7:45 AM EDT Pulse 103 06/22/2023 7:45 AM EDT Temperature 36.3 C (97.3 F) 06/22/2023 7:45 AM ED T Respiratory Rate 16 06/22/2023 7:45 AM EDT Oxygen Saturation 96% 06/22/2023 7:45 AM EDT Inhaled Oxygen Concentration - - Weight 52.8 kg (116 lb 6.4 oz) 06/22/2023 7:45 A M EDT Height - - Body Mass Index 18.79 02/16/2023 12:15 PM EST documented in this encounter Progress Notes * Werner Roland MD - 06/22/2023 7:45 AM EDT Hematology/Oncology Outpatient [place] [address] [place] [address] Name: Ricky Cason Date: 06/05/2023 CHIEF COMPLAINT: Ricky Cason is a 78 year old male here today for f/u visit today. HEMATOLOGY/ONCOLOGY DIAGNOSIS: Lower esophageal adenocarcinoma Earlier he was seen by Dr. Olivas, because of comorbid conditions, no surgical intervention offered. Cancer Staging T2 N0 M0 DATE OF DIAGNOSIS: 02/16/23 CURRENT TREATMENT: - Obswervation. COMPLETED TREATMENT: Weekly Paclitaxel and carboplatin along with radiation treatment x 5 (05/09/23 - 06/06/2023) 06/15/2023--> Status post completion of combined radiation and chemotherapy. He completed 5040 c Gy DIAGNOSTIC WORKUP: Recently somewhere in November 2022 [...] has oxycodone prescribed by his primary-care provider. OTHER IMPORTANT HISTORY: He is on hemodialysis ( originally started on peritoneal dialysis about a year back, lately change to hemodialysis after complications in the abdomen which required sigmoid colostomy. 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 ( he used NSAID for the chronic back pain). HISTORY OF PRESENT ILLNESS: He has come the clinic for the follow-up, came to clinic in the wheelchair, ambulating with the help of the walker at home, now he completed combined chemotherapy with weekly Paclitaxel carboplatin x5 and radiation treatment. He had a retrosternal discomfort, received magic mouthwash with improvement of the symptoms. He takes oxycodone for the chronic back pain which is unrelated to the esophageal cancer diagnosis. He is having hemodialysis 3 days in a week (Monday, Monday, Monday). No nausea no vomiting, fair appetite, current weight around 116 lb. No fever, no infections, no recent hospitalization. Past Medical History: Diagnosis Date Abnormal echocardiogram 08/19/2014 Anemia due to chronic kidney disease, on chronic dialysis ([facility]) 06/03/2022 Anemia in stage 4 chronic kidney disease ([facility]) 02/19/2021 Aneurysm of left vertebral artery ([facility]) 06/03/2022 Benign neoplasm of colon 07/20/12 COLONOSCOPY FLEXIBLE PROXIMAL DIAGNOSTIC performed by Rukhsana Gunter DO at [facility] [place],ADENOMATOUS POLYPS REPEAT COLONOSCOPY IN 5 YEARS Bilateral low back pain without sciatica 02/19/2015 Cerebrovascular accident (CVA) due to thrombosis of right middle cerebral artery ([facility]) 09/05/2022 Hx - CVA in May 2022 Constipation due to opioid therapy 03/29/2018 Diabetes mellitus with nephropathy ([facility]) 04/09/2018 Dyslipidemia, goal LDL below 100 11/06/2013 Dyslipidemia, goal LDL below 130 11/07/2013 Gout 06/04/2012 High blood pressure HTN, goal below 140/80 06/04/2012 Internal hemorrhoids 06/04/2012 Kidney disease, chronic, stage IV (GFR 15-29 ml/min) ([facility]) 02/19/2021 Malignant melanoma of face ([facility]) 06/04/2012 Malignant melanoma of skin of other and unspecified parts of face MEDICATION USE AGREEMENT 02/19/2015 Microalbuminuria 04/24/2014 OA (osteoarthritis) of knee 11/06/2013 Other and unspecified hyperlipidemia Hypercholesterolemia Prediabetes 07/18/2014 Prostate cancer ([facility]) 11/13/12 marco 7 and 6 Recurrent sinus infections 04/24/2014 Status post lumbar spinal fusion 06/17/2014 06/11/14 Sia Type 2 diabetes mellitus with chronic kidney disease on chronic dialysis ([facility]) 03/01/2022 Type 2 diabetes mellitus with hemoglobin A1c goal of less than 8.0% ([facility]) 11/27/2017 Past Surgical History: Procedure Laterality Date AV ACCESS, DIRECT ANASTOMOSIS Left 02/09/2023 ARTERIOVENOUS ANASTOMOSIS OPEN DIRECT ANY SITE performed by Brian Payton MD at [facility] COLONOSCOPY, DIAGNOSTIC (RECTUM) 07/20/2012 COLONOSCOPY FLEXIBLE PROXIMAL DIAGNOSTIC performed by Rukhsana Gunter DO at [facility] [place],ADENOMATOUS POLYPS REPEAT COLONOSCOPY IN 5 YEARS COLONOSCOPY, DIAGNOSTIC (RECTUM) 05/03/2018 diverticulosis sigmoid colon/biopsies show adenomatous polyps/recall 3 years/COLONOSCOPY FLEXIBLE PROXIMAL DIAGNOSTIC performed by Rukhsana Gunter DO at ENDOSCOPY [facility] COLONOSCOPY/REMOVE LESION 2009 EGD, FLEXIBLE, ENDO MUCOSAL RESECTION N/A 02/16/2023 ESOPHAGOGASTRODUODENOSCOPY (EGD), FLEXIBLE, TRANSORAL: MUCOSAL RESECTION performed by Karlee Buitrago MD at OR [facility] EGD, W/ENDOSCOPIC US N/A 01/13/2023 partially obstructing tumor GEJ/one benign appearing enlarged lymph node/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 ric INJECTION LUMBAR/SACRAL 03/28/2014 INJECTION SPINE LUMBAR OR SACRAL performed by [place] Latasha Mcpherson DO at OR [facility] LAPAROSCOPY, W/ INSERT INTRAPERITONEAL CATH N/A 01/12/2022 LAPAROSCOPIC INSERTION INTRAPERITONEAL CANNULA OR CATHETER performed by Florentin Will MD at OR [facility] LUMBAR / SACRAL EPIDURAL, SINGLE LEVEL 08/08/2016 INJECTION TRANSFORAMINAL EPIDURAL LUMBAR OR SACRAL performed by [place] Latasha Mcpherson DO at OR [facility] LUMBAR / SACRAL EPIDURAL, SINGLE LEVEL 08/25/2016 INJECTION TRANSFORAMINAL EPIDURAL LUMBAR OR SACRAL performed by [facility] DO [place] at OR [facility] LUMBAR SPINE FUSION W/BONE GRAFT 06/11/2014 Dr Corrales MELANOMA AJCC STAGE 0 OR 1A DOCUMENTED 1999 face NEEDLE/PUNCH BIOPSY OF PROSTATE 11/06/2012 Prostate,Needle/Punch Biopsy OTHER 09/16/2022 Permacath placement for HD @[facility] [place] COLOSTOMY/SKIN LEVEL CECOSTOMY 09/09/2022 Dr Jorge [facility] [place] EXPLORATORY LAPAROTOMY CELIOTOMY W/WO BIOPSY SPX 09/09/2022 Dr Jorge [facility]. ex lap for SBO/sigmoid colostomy, removal PD catheter. 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 (Patient not taking: Reported on 06/01/2023) Ondansetron HCl 8 MG Oral Tablet (Zofran) [...] Severe or Pain, Moderate. 120 Tablet 0 No current facility-administered medications for this visit. OBJECTIVE: ECOG: Performance Status 3 = 40-50% Bedtime > 50% General Appearance: No acute distress HEENT: small ulceration noted to left lower lip Lymph Nodes: Normal - No palpable lymph nodes in the neck or supraclavicular areas Lungs/Thorax: Normal - Clear to auscultation Heart: Normal - Regular rate and rhythm, normal S1, S2, no appreciable murmurs Pulses/Extremities: Normal - 2+ throughout and symmetrical, no edema Neurologic: alert and oriented x 4, in wheelchair LABS: IMPRESSION/PLAN: Lower esophageal adenocarcinoma Encounter for chemotherapy Chemotherapy/radiation induced mucositis Now he completed 5 cycles of weekly Paclitaxel carboplatin along with radiation treatment, had someretrosternal discomfort but It has improved after magic mouthwash, currently he has not using that. I am planning for follow-up PET-CT scan in about 1 month and then will see him back in the clinic. Dr. Werner Roalnd Hem/Onc (This note was completed using the dictation program Fluency Direct. As such, there may be misspellings word substitutions, or other variations that should not change the essence of the clinical content of this encounter note. If there is need for further clarification, please direct questions to the provider listed above.) documented in this encounter Nursing Notes * Roberta Oates MED ASSIST - 06/22/2023 7:47 AM EDT Patient identifed by name and birthdate Do you have any concerns about pain management for today's visit? No Living Will or Advance Directive for Health Care as noted on the problem list. [facility] is a way you can talk to your provider on line through e-mail. Would you like to sign up? I can activate it for you? NO Filed Vitals: 06/22/23 0745 BP: 125/74 Pulse: 103 Resp: 16 Temp: 36.3 C (97.3 F) TempSrc: Tympanic SpO2: 96% Weight: 52.8 kg (116 lb 6.4 oz) Patient was instructed to not get [...] Care Team (Late st Contact Info) Description 06/29/2023 8:00 AM EDT Office Visit Family Practice [facility] [address] [place] [address] Barrett Dacosta MD [address] [place] [address] 07/17/2023 12:45 PM EDT Imaging Radiology [address] [facility] [address] [place] [address] 07/28/2023 2:15 PM EDT Office Visit Hematology/Oncology [facility] [address] [facility] [place] [address] Werner Roland MD 200 [facility] [place] [address] 01/23/2024 11:00 AM EST Telemedicine Neurosurgery, [place] [address] [place] [address] Earle Murphy MD [address], [place] [id number] Scheduled Orders Name Type Priority Associated Diagnoses Orde r Schedule PET CT SKULL BASE TO MID-THIGH FDG Medical Imaging Routine Esophageal adenocarcinoma (HCC) Ordered: 06/22/2023 Scheduled Procedures Name Priority Associated Diagnoses Date/Ti me COLONOSCOPY, FLEXIBLE; WITH ENDOSCOPIC MUCOSAL RESECTION Recall History of colonic polyps Health Maintenance Due Date Last Done Comments DTaP,Tdap,and Td Vaccines (3 - Td or Tdap) 11/18/2020 11/18/2010, 01/05/2010 COLONOSCOPY-EVERY 3 YRS AGES 18-100 05/03/2021 05/03/2018, 05/03/2018, 07/20/2012, Additional history exists Diabetic Foot Exam 03/01/2023 03/01/2022, 1 04/21/2020, 02/14/2020, Additional history exists HbA1c 07/13/2023 01/12/2023, 010 [...] Documents on File Type Date Recorded Patient Inspector And Clerk Expl anation POLST 03/23/2023 4:05 PM [...] patient or by statute hierarchy) Care Teams Tawer Relationship Specialty Start Date End Date Barrett Dacosta MD [address] [place] [address] PCP - General Family Medicine 04/11/18 documented as of this encounter
--- OUTSIDE RECORDS SUMMARY | 2023-07-22 02:18 | External Medical Summary | Summary of Care ---
Author Name Unknown Organization [facility] Address [address] [facility] [place] [address] Phone [phone] Care Team Providers Care Senior Systems Software Engineer Name Role Phone Barrett Dacosta MD Primary Care Provider + Reason for Visit * Reason Onset Date Comments Test Results Lab 06/12/2023 Encounter Details Date Type Department Care Team (Late st Contact Info) Description 06/12/2023 Telephone Hematology/Oncology [facility] 200 [facility] [place] [address] Olu Pickard MD [address] [place] [address] Test Results Lab Allergies No known active [...] artery 06/03/2022 Overview: 05/[address] [facility] Type 2 diabetes mellitus wit h [...] high grade dysplasia (? Cancer--[place] [facility] [place]esophagitis, martha 4 wk[address] CVA 05/26 [facility]. Left sided weakness. 05/[address] [facility] normal EF Grade 2 Farmer Dys. [...] mRNA, LNP-s, No Pre serve, 2-Dose Series (Exosect) 02/20/2021,06/17/2020,05/26/2020 Covid-19, Mrna, Lnp-s, Pf, B ivalent, [...] sign of infection, she verbalized understanding. Dr Pickard: please place alteration to cancel last treatment [...] 06/22/2023 7:45 AM EDT Office Visit Hematology/Oncology [facility] 200 [facility] [place] [address] Werner Roland MD 200 [facility] [place] [address] 06/29/2023 8:00 AM EDT Office Visit Family Practice [facility] [address] [place] [address] Barrett Dacosta MD [address] [place] [address] 01/23/2024 11:00 AM EST Telemedicine [facility] [address] [place] [address] Earle Murphy MD [address] [place] [address] Scheduled Procedures Name Priority Associated Diagnoses Date/Ti [...] Documents on File Type Date Recorded Patient Forest Landscape Ecology Professor Expl anation POLST 03/23/2023 4:05 PM POLST [...] or by statute hierarchy) Care Teams Senior Systems Software Engineer Relationship Specialty Start Date End Date Barrett Dacosta MD [address] [facility] [place] [address] PCP - General Family Medicine 04/11/18 documented as of this encounter
--- OUTSIDE RECORDS SUMMARY | 2023-07-22 02:19 | External Medical Summary ---
Author Name Unknown Address Unknown Organization K09[facility] [place] [address] Laboratory Report Ordering Provider Test Date Status KRISTINE SAWYER 06/12/2023 08:42:10 Final Observation Date Value Abnormality Reference (Units ) Status WBC, Total 06/12/2023 08:42:10 0.44 Below lower panic limits 4.00-10.80 (K/uL) Final Results rechecked.
null RBC 06/12/2023 08:42:10 2.75 4.50-5.25 (M/uL) Final Hemoglobin 06/12/2023 08:42:10 8.4 Below low normal 14 .0-16.8 (g/dL) Final HCT 06/12/2023 08:42:10 26.8 Below low normal 40. 0-48.4 (%) Final MCV 06/12/2023 08:42:10 97.5 82.0-99.5 (fL) Final MCH 06/12/2023 08:42:10 30.5 27.0-34.0 (pg) Final MCHC 06/12/2023 08:42:10 31.3 32.0-36.0 (g/dL) Final RDW 06/12/2023 08:42:10 17.1 11.5-15.5 (%) Final Platelets 06/12/2023 08:42:10 131 Below low normal 140 -400 (K/uL) Final MPV 06/12/2023 08:42:10 9.3 6.6-11.1 ( fL) Final Performing Location [facility] [place] [address]
--- OUTSIDE RECORDS SUMMARY | 2023-07-22 02:19 | External Medical Summary | Summary of Care ---
Author Name Unknown Organization [facility] Address [address] [place] [address] Phone [phone] Care Team Providers Care Bow Tacker Name Role Phone Barrett Dacosta MD Primary Care Provider + Encounter Details Date Type Department Care Team (Late st Contact Info) Description 06/11/2023 Orders Only Hematology/Oncology, [facility] [address] [place] [address] Olu Pickard MD [address] [place], [place] [phone] Allergies No known active allergiesdocumented as of this encounter (statuses as of 06/11/2023) Medications Medication Sig Dispensed Refills Start Date [...] as of this encounter (statuses as of 06/11/2023) Active Problems Problem Noted Date Diagnosed Date [...] + high grade dysplasia (? Cancer--[place] [facility] [place])/esophagitis, martha 4 wk. CVA 05/26 [...] cancer 01/09/2013 Overview: S/p resection Dr Whitehead [facility] HTN, goal below 140/90 06/04/2012 Gout 06/04/2012 Overview: 07/18 indomethicin non-form documented as of this encounter (statuses as of 06/11/2023) Resolved Problems Problem Noted Date Diagnosed Date [...] as of this encounter (statuses as of 06/11/2023) Immunizations Name Administration Dates Next Due COVID-19 mRNA, LNP-s, No Pre serve, 2-Dose Series (Storybyte) 02/20/2021,06/17/2020,05/26/2020 Covid-19, Mrna, Lnp-s, Pf, B ivalent, [...] Team (Late st Contact Info) Description 06/12/2023 9:10 AM EDT Laboratory Laboratory [facility] 200 [facility] [place] [phone] [place] [address] [place] [address] 06/13/2023 8:00 AM EDT Hem[facility] [address] [place] [phone] Ivory, Chair [address] Hem On[address] [place] [address] 06/22/2023 7:45 AM EDT Office Visit Hematology/Oncology [facility] [place] [address] [facility] [place] [phone] Werner Roland MD [address] [facility] [place] [address] 06/29/2023 8:00 AM EDT Office Visit Family Practice [facility] [address] [address] Barrett Dacosta MD [address] [place] [address] 01/23/2024 11:00 AM EST Telemedicine [facility] [place] [address] [place], [place] [phone] Earle Murphy MD [address] [place] [address] Scheduled Procedures Name Priority Associated Diagnoses Date/Ti [...] Documents on File Type Date Recorded Patient Heel Buffer Expl anation POLST 03/23/2023 4:05 PM POLST [...] patient or by statute hierarchy) Care Teams Bow Tacker Relationship Specialty Start Date End Date Barrett Dacosta MD [address] [place] [address] PCP - General Family Medicine 04/11/18 documented as of this encounter
--- OUTSIDE RECORDS SUMMARY | 2023-07-22 02:19 | External Medical Summary ---
Author Name Unknown Address Unknown Organization K09[facility] [place] [address] Laboratory Report Ordering Provider Test Date Status KRISTINE SAWYER 06/12/2023 08:42:10 Final Observation Date Value Abnormality Reference (Units ) Status COMMENT 06/12/2023 08:42:10 WBC < 0.60, WBC differential cancelled. Please call Client Services if differential is required. Final Performing Location [facility] [place] [address]
--- OUTSIDE RECORDS SUMMARY | 2023-07-22 02:19 | External Medical Summary | Summary of Care ---
Author Name Unknown Organization [facility] Address [address] [facility] [place] [address] Phone [phone] Care Team Providers Care Heavy Forger Name Role Phone Barrett Dacotsa MD Primary Care Provider + Reason for Visit * Reason Comments Outpatient Testing Encounter Details Date Type Department Care Team (Late st Contact Info) Description 06/05/2023 8:40 AM EDT Laboratory Laboratory [facility] [place] [address] [place] [phone] [facility] [address] [facility] [place] [address] Esophageal adenocarcinoma (HCC) Allergies No known active allergiesdocumented as of this encounter (statuses as of 06/05/2023) Medications Medication Sig Dispensed Refills Start Date [...] morning of treatment 36 Tablet 0 05/03/2023 Active oxyCODONE HCl 10 MG Oral Tablet (Roxicodone)Indicatio ns:S/p left hip fracture,Esophageal adenocarcinoma (HCC) Take 1 Tablet by mouth every 6 hours as needed for Pain, Severe or Pain, Moderate. 120 Tablet 0 05/15/2023 Active documented as of this encounter (statuses as of 06/05/2023) Active Problems Problem Noted Date Diagnosed Date [...] left vertebral artery 06/03/2022 Overview: 05/26 [facility] Type 2 diabetes mellitus wit [...] as of this encounter (statuses as of 06/05/2023) Resolved Problems Problem Noted Date Diagnosed Date [...] as of this encounter (statuses as of 06/05/2023) Immunizations Name Administration Dates Next Due COVID-19 mRNA, LNP-s, No Pre serve, 2-Dose Series ([place]) 02/20/2021,06/17/2020,05/26/2020 Covid-19, Mrna, Lnp-s, Pf, B ivalent, [...] Care Team (Late st Contact Info) Description 06/06/2023 8:00 AM EDT Office Visit Hematology/Oncology [facility] [address] [facility] [place] [phone] Maribel Broussard CRNP [address] [place] [address] 06/06/2023 8:30 AM EDT Hem/Onc Treatment Hematology/Oncology Treatment, [place] [address] [facility] [address] [place] [phone] Ivory, Chair [address] Hem Onc [address] [place] [address] 06/22/2023 7:45 AM EDT Office Visit Hematology/Oncology [address] [place] [phone] Werner Roland MD [address] [facility] [place] [address] 06/29/2023 8:00 AM EDT Office Visit Family [facility] [address] [address] Barrett Dacosta MD [address] [place] [address] 01/23/2024 11:[address] [facility] Telemedicine Neurosurgery, [address] [address] Earle Murphy MD [address] [place] [address] Pending Results Name Type Priority Associated Diagnoses Date /Time CBC WITH WBC DIFFERENTIAL Lab STAT Esophageal adenocarcinoma (HCC) 06/05/2023 8:54 AM EDT COMPREHENSIVE METABOLIC PANEL Lab STAT Esophageal adenocarcinoma (HCC) 06/05/2023 8:54 AM EDT CBC Lab STAT Esophageal adenocarcinoma (HCC) 06/05/2023 8:54 AM EDT DIFFERENTIAL, AUTOMATED Lab STAT Esophageal adenocarcinoma (HCC) 06/05/2023 8:54 AM EDT DIFFERENTIAL, TECHNOLOGIST REVIEW Lab Routine Esophageal adenocarcinoma (HCC) 06/05/2023 8:54 AM EDT Scheduled Procedures Name Priority Associated Diagnoses Date/Ti [...] this encounter Visit Diagnoses Diagnosis Esophageal adenocarcinoma (HCC) Malignant neoplasm of esophagus, unspecified site documented in this encounter Advance Directives Documents on File Type Date Recorded Patient Waterproofing Mixer Expl anation POLST 03/23/2023 4:05 PM POLST [...] patient or by statute hierarchy) Care Teams Heavy Forger Relationship Specialty Start Date End Date Barrett Dacosta MD [address] [place] [address] PCP - General Family Medicine 04/11/18 documented as of this encounter
--- OUTSIDE RECORDS SUMMARY | 2023-07-22 02:19 | External Medical Summary | Summary of Care ---
Author Name Unknown Organization [facility] Address [address] [facility] [place] [address] Phone [phone] Care Team Providers Care Hvac Controls Technician Name Role Phone Barrett Dacosta MD Primary Care Provider + Reason for Visit * Reason Onset Date Comments Health Maintenance 06/09/2023 Encounter Details Date Type Department Care Team (Late st Contact Info) Description 06/09/2023 Telephone Family Practice [facility] [address] [place] [phone] Barrett Dacosta MD [address] [place] [address] Health Maintenance Allergies No known active allergiesdocumented as of this encounter (statuses as of 06/09/2023) Medications Medication Sig Dispensed Refills Start Date [...] as of this encounter (statuses as of 06/09/2023) Active Problems Problem Noted Date Diagnosed Date [...] + high grade dysplasia (? Cancer--sent to [facility] for review)/esophagitis, martha 4 wk. CVA 05/26 [facility]. Left sided weakness. 05/26 TTE [facility] normal EF Grade 2 Farmer Dys. Moderate AV sclerosis and calcified mitral valve--stenosis + mod MR.mild MS. No shunt. 04/24 colon-polyp tubular adenoma. Declined f/u. 2012 adenoma. 08/18 TTE-possilbe vegetation. Mild LVH History of prostate cancer 01/09/2013 Overview: S/p resection Dr Whitehead [facility] HTN, goal below 140/90 06/04/2012 Gout 06/04/2012 Overview: 07/18 indomethicin non-form documented as of this encounter (statuses as of 06/09/2023) Resolved Problems Problem Noted Date Diagnosed Date [...] as of this encounter (statuses as of 06/09/2023) Immunizations Name Administration Dates Next Due COVID-19 mRNA, LNP-s, No Pre serve, 2-Dose Series ([employer]) 02/20/2021,06/17/2020,05/26/2020 Covid-19, Mrna, Lnp-s, Pf, B ivalent, [...] encounter Miscellaneous Notes * Telephone Encounter - Raiza Fagan LPN - 06/09/2023 1:57 PM EDT Care Gaps Comprehensive Care Outreach Last Office/Telemedicine Visit: 04/11/2023 (in office), 10/02/2019 (telemedicine) Next Office Visit: 06/29/2023 Hemoglobin AIC Results: Lab Results Component Value Date/Time HEMOGLOBIN A1C - [facility] 4.9 01/12/2023 09:37 AM HEMOGLOBIN A1C - [facility] 6.0 (H) 03/08/2022 08:33 AM HEMOGLOBIN A1C - [facility] 5.2 08/16/2021 08:17 AM HEMOGLOBIN A1C - [facility] 5.6 11/19/2019 12:56 PM HEMOGLOBIN A1C - [facility] 5.4 09/24/2019 08:07 AM HEMOGLOBIN A1C - [facility] 5.7 (H) 04/01/2019 08:27 AM BP Readings from Last 1 Encounters: 06/06/23 115/64 Reviewed Health Maintenance below: Health Maintenance Topic Date Due DTaP,Tdap,and Td Vaccines (3 - Td or Tdap) 11/18/2020 COLONOSCOPY-EVERY 3 YRS AGES 18-100 05/03/2021 Diabetic Foot Exam 03/01/2023 HbA1c 07/13/2023 Diabetic Eye Exam 07/27/2023 Depression Screening 09/02/2023 Colon currently going through cancer treatment Labs eye Care Gap Outreach Action Taken: Unable to reach documented in this encounter Plan of Treatment Upcoming Encounters Date Type Department Care Team (Late st Contact Info) Description 06/12/2023 9:10 AM EDT Laboratory Laboratory [facility] [place] [address] [place], [place] [phone] Iv[place], Lab [address]en[address] [place], [place] [address] 06/13/2023 8:00 AM EDT Hem/Onc Treatment Hematology/Oncology Treatment, [place] [address] [place], [place] [phone] [place], Chair 5 Hem Onc [facility] [address] [facility] [place], [place] [address] 06/22/2023 7:45 AM EDT Office Visit Hematology/Oncology [facility] [place] [address] [place], [place] [phone] Werner Roland MD [address] [place], [place] [address] 06/29/2023 8:00 AM EDT Office Visit Family Practice [facility] [address] [facility] [place] [address] Barrett Dacosta MD [address] [facility] 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
--- OUTSIDE RECORDS SUMMARY | 2023-07-22 02:19 | External Medical Summary | Summary of Care ---
Author Name Unknown Organization [facility] Address [address] [place] [facility] [place] [address] Phone [phone] Care Team Providers Care Broadcasting Equipment Mechanic Name Role Phone Barrett Dacosta MD Primary Care Provider + Reason for Visit * Reason Onset Date Comments Test Results Lab 06/12/2023 Encounter Details Date Type Department Care Team (Late st Contact Info) Description 06/12/2023 Telephone Hematology/Oncology [facility] [address] [facility] [place] [address] Olu Pickard MD [address] [place] [address] Test Results Lab Allergies No known active [...] left vertebral artery 06/03/2022 Overview: 05/26 CTA [facility] Type 2 diabetes mellitus [...] + high grade dysplasia (? Cancer--[place] [facility] [place]esophagitis, martha 4 wk. CVA 05/26 [facility]. Left sided weakness. 05/26 TTE [facility] normal EF Grade 2 Farmer Dys. Moderate AV sclerosis and calcified mitral valve--stenosis + mod MR.mild MS. No shunt. 04/24 colon-polyp tubular adenoma. Declined f/u. 2012 adenoma. 08/18 TTE-possilbe vegetation. Mild LVH History of prostate cancer 01/09/2013 Overview: S/p resection Dr Whitehead [facility] HTN, goal below 140/90 06/04/2012 Gout 06/04/2012 [...] mRNA, LNP-s, No Pre serve, 2-Dose Series ([employer]) 02/20/2021,06/17/2020,05/26/2020 Covid-19, Mrna, Lnp-s, Pf, B ivalent, [...] encounter Miscellaneous Notes * Addendum Note - Rommel Camejo RN - 06/12/2023 9:58 AM EDTAddended by: ROMMEL CAMEJO on: 06/12/2023 09:58 AM Modules accepted: Orders * Telephone Encounter - Rommel Camejo RN - 06/12/2023 9:[address] Pickard- would like to cancel patients last cycle due to neutropenia. [place] updated. Called patient to make him aware. [...] 8:00 AM EDT Hem/Onc Treatment Hematology/Oncology Treatment, [place] [address] [place] [phone] Park, Chair 5 Hem Onc [facility] [address] [facility] [place] [address] 06/22/2023 7:45 AM EDT Office Visit Hematology/Oncology [facility] [place] [address] [place] [phone] Werner Roland MD [address] [place] [address] 06/29/2023 8:00 AM EDT Office Visit Family [facility] [address] [place] [address] Barrett Dacosta MD [address] [place] [address] 01/23/2024 11:00 AM EST Telemedicine [facility] [address] [place] [address] Earle Murphy MD [address] [place] [address] Scheduled Procedures Name Priority Associated Diagnoses Date/Ti [...] Documents on File Type Date Recorded Patient Capacitor Repairer Expl anation POLST 03/23/2023 4:05 PM POLST [...] patient or by statute hierarchy) Care Teams Broadcasting Equipment Mechanic Relationship Specialty Start Date End Date Barrett Dacosta MD [address] [place] [address] PCP - General Family Medicine 04/11/18 documented as of this encounter
--- OUTSIDE RECORDS SUMMARY | 2023-07-22 02:19 | External Medical Summary | Summary of Care ---
Author Name Unknown Organization [facility] Address [address] [place] [facility] [place] [address] Phone [phone] Care Team Providers Care Motor Runner Name Role Phone Barrett Dacosta MD Primary Care Provider + Reason for Visit * Reason Onset Date Comments Test Results Lab 06/12/2023 Encounter Details Date Type Department Care Team (Late st Contact Info) Description 06/12/2023 Telephone Hematology/Oncology [facility] [address] [facility] [place] [address] Olu Pickard MD [address] [place] [address] Test Results Lab Allergies No known active [...] Overview: 05/26 CTA [facility] Type 2 diabetes mellitus wit h chronic [...] + high grade dysplasia (? Cancer--sent to [facility] for review)/esophagitis, martha [...] cancer 01/09/2013 Overview: S/p resection Dr Whitehead [facility] HTN, goal below 140/90 06/04/2012 Gout 06/04/2012 [...] mRNA, LNP-s, No Pre serve, 2-Dose Series ([employer]) 02/20/2021,06/17/2020,05/26/2020 Covid-19, Mrna, Lnp-s, Pf, B ivalent, [...] cancel patients last cycle due to neutropenia. [place] updated. Called patient to make him aware. [...] 8:00 AM EDT Hem/Onc Treatment Hematology/Oncology Treatment, [place] [address] [place] [phone] [place], Chair 5 Hem Onc [facility] [address] [facility] [place] [address] 06/22/2023 7:45 AM EDT Office Visit Hematology/Oncology [facility] [place] [address] [place] [phone] Werner Roland MD [address] [place] [address] 06/29/2023 8:00 AM EDT Office Visit Family [facility] [address] [place] [address] Barrett Dacosta MD [address] [place] [address] 01/23/2024 11:00 AM EST Telemedicine [facility] [address] [place] [address] Earle Murphy MD [address] [place] [address] Scheduled Procedures Name Priority Associated Diagnoses Date/Ti [...] Documents on File Type Date Recorded Patient Social Services Analyst Expl anation POLST 03/23/2023 4:05 PM POLST [...] patient or by statute hierarchy) Care Teams Motor Runner Relationship Specialty Start Date End Date Barrett Dacosta MD [address] [place] [address] PCP - General Family Medicine 04/11/18 documented as of this encounter
--- OUTSIDE RECORDS SUMMARY | 2023-07-22 02:19 | External Medical Summary | Summary of Care ---
Author Name Unknown Organization [facility] Address [address] [place] [facility] [place] [address] Phone [phone] Care Team Providers Care Sheetfed Press Operator Name Role Phone Barrett Dacosta MD Primary Care Provider + Reason for Visit * Reason Comments Chemotherapy Taxol/Carbo [id number] * Episode Based Medications (Routine) - Authorized Specialty Diagnoses / Procedures Referred By Contbrian t Referred To Contact Diagnoses Encounter for antineoplastic chemotherapy Esophageal adenocarcinoma (HCC) Procedures OK PALONOSETRON HCL OK CARBOPLATIN INJECTION OK PACLITAXEL INJECTION Werner Roland MD [address] [place] [address] [place] [address] Anc Hem/Onc [address] [place] [address] Referral ID Status Reason Start Date Expiration Date V isits Requested Visits Authorized [id number] Authorized 05/03/2023 05/03/2024 [id number] Encounter Details Date Type Department Care Team (Latest Contact Info) Description 06/06/2023 8:30 AM EDT Hem/Onc Treatment Hematology/Oncolog y Treatment, [address] [place] [address] [place], Chair 9 Hem Onc [address] [place] [address] Encounter for antineoplastic chemotherapy*; Esophageal adenocarcinoma (HCC) Allergies No known active allergiesdocumented as of this encounter (statuses as of 06/06/2023) Medications Medication Sig Dispensed Refills Start Date [...] Active traMADol HCl 50 MG Oral Tablet (Ultram)Indications:ME DICATION USE AGREEMENT,Status post lumbar spinal fusion,Chronic bilateral [...] Vitamin D3 50 MCG (2000 UT) Oral CapsuleIndications:S/p left hip fracture Take 1 Capsule by [...] Active Ondansetron HCl 8 MG Oral Tablet (Zofran)Indications:Es ophageal adenocarcinoma (HCC) Take 1 Tablet by mouth every 8 hours as needed for Nausea. 30 Tablet 2 05/03/2023 Active Prochlorperazine Maleate 10 MG Oral Tablet (Compazine)Indications :Esophageal adenocarcinoma (HCC) Take 1 Tablet by mouth every 6 hours as needed for Nausea. 30 Tablet 2 05/03/2023 Active oxyCODONE HCl 10 MG Oral Tablet (Roxicodone)Indication s:S/p left hip fracture,Esophageal adenocarcinoma (HCC) Take 1 Tablet by mouth every 6 hours as needed for Pain, Severe or Pain, Moderate. 120 Tablet 0 05/15/2023 Active documented as of this encounter (statuses as of 06/06/2023) Active Problems Problem Noted Date Diagnosed Date [...] left vertebral artery 06/03/2022 Overview: 05/26 CTA [facility] Type 2 diabetes mellitus [...] for review)/esophagitis, martha 4 wk. CVA 05/26 [facility]. Left sided weakness. 05/26 TTE [facility] normal EF Grade 2 Farmer Dys. Moderate AV sclerosis and calcified mitral valve--stenosis + mod MR.mild MS. No shunt. 04/24 colon-polyp tubular adenoma. Declined f/u. 2012 adenoma. 08/18 TTE-possilbe vegetation. Mild LVH History of prostate cancer 01/09/2013 Overview: S/p resection Dr Whitehead [facility] HTN, goal below 140/90 06/04/2012 Gout 06/04/2012 Overview: 07/18 indomethicin non-form documented as of this encounter (statuses as of 06/06/2023) Resolved Problems Problem Noted Date Diagnosed Date [...] as of this encounter (statuses as of 06/06/2023) Immunizations Name Administration Dates Next Due COVID-19 mRNA, LNP-s, No Pre serve, 2-Dose Series ([employer]) 02/20/2021,06/17/2020,05/26/2020 Covid-19, Mrna, Lnp-s, Pf, B [...] Description 06/12/2023 9:10 AM EDT Laboratory Laboratory [facility] [place] [address] [facility] [place] [phone] Martin, Lab [address] [place] [address] 06/13/2023 8:00 AM EDT Hem/Onc Treatment Hematology/Oncology Treatment, [place] [address] [facility] [place] [phone] Iv[place], Chair 5 Hem Onc [address] [place] [address] 06/22/2023 7:45 AM EDT Office Visit Hematology/Oncology [facility] [place] [address] [facility] [place] [phone] Werner Roland MD [address] [facility] [place] [address] 06/29/2023 8:00 AM EDT Office Visit Family [facility] [address] [place] [address] Barrett Dacosta MD [address] [place] [address] 01/23/2024 11:00 AM EST Telemedicine [facility], [place] [address] [place] [address] Earle Murphy MD [address] [place] [address] Scheduled Procedures Name Priority Associated Diagnoses Date/Ti [...] site documented in this encounter Administered Medications Active Administered Medications - up to 3 most recent administrations Medication Order MAR Action Action Date Dose Rate Site diphenhydrAMINE (Benadryl) inj 50 mg 50 mg, IV Push, ONCE PRN Other, Hypersensitivity Reaction, Starting on Mon06/06/23 at 0851, Until Mon06/07/23 at 0850, For 24 hours EPINEPHrine 1 MG/ML inj 0.3 mg 0.3 mg, Intramuscular, ONCE PRN Other, Hypersensitivity Reaction or Anaphylaxis, Starting on Mon06/06/23 at 0851, Until Mon06/07/23 at 0850, For 24 hours hEParin 100 UNIT/ML Lock Flush inj 500 Units 500 Units (5 mL), IV Lock, PRN Other, IV Flush, Starting on Mon06/06/23 at 0851, Until Mon06/07/23 at 0850, For 24 hours, Do not flush if lock, PICC, or central line not in place; IV infusing or unable to flush. Hydrocortisone Sod Suc (PF) (Solu-Cortef) inj 100 mg 100 mg, IV Push, ONCE PRN Other, Hypersensitivity Reaction, Starting on Mon06/06/23 at 0851, Until Mon06/07/23 at 0850, For 24 hours LORAzepam (Ativan) tab 0.5 mg 0.5 mg, Oral, ONCE PRN Anxiety, Nausea, Starting on Mon06/06/23 at 1000, Until Discontinued NSS infusion Intravenous, at 50 mL/hr, PRN, Starting on Mon06/06/23 at 1000, Until Discontinued, Maintenance line Start Infusion 06/06/2023 9:01 AM EDT 50 mL/hr oxygen GAS Inhalation, OXYGEN, First dose on Mon06/06/23 at 0930, Until Discontinued, Device/Managed by: Low [...] is greater than or equal to 93% sodium chloride 0.9 % flush central line 10 mL 10 mL, IV Push, PRN Other, IV Flush, Starting on Mon06/06/23 at 0851, Until Mon06/07/23 at 0850, For 24 hours, Do not flush if lock, PICC, or central line not in place; IV infusing or unable to flush. Inactive Administered Medications - up to 3 [...] Given 06/06/2023 9:11 AM EDT 20 mg PACLitaxel (Taxol) 84 mg in NSS 250 [...] at 1000, For 1 dose, Restricted per [facility] antiemetic guidelines Given 06/06/2023 9:11 AM EDT 0.25 mg documented in this encounter Advance Directives Documents on File Type Date Recorded Patient Statistical Engineer Expl anation POLST 03/23/2023 4:05 PM [...] patient or by statute hierarchy) Care Teams Sheetfed Press Operator Relationship Specialty Start Date End Date Barrett Dacosta MD [address] [place] [address] PCP - General Family Medicine 04/11/18 documented as of this encounter
--- OUTSIDE RECORDS SUMMARY | 2023-07-22 02:19 | External Medical Summary | Summary of Care ---
Author Name Unknown Organization [facility] Address [address] [facility] [place] [address] Phone [phone] Care Team Providers Care Precision Instrument Maker Name Role Phone Barrett Dacosta MD Primary Care Provider + Reason for Visit * Reason Comments Follow Up Encounter Details Date Type Department Care Team (Late st Contact Info) Description 06/06/2023 8:00 AM EDT Office Visit Hematology/Oncology [facility] [place] [address] [place] [address] Maribel Broussard CRNP [address] [place] [address] Esophageal adenocarcinoma (HCC)*; Encounter for antineoplastic chemotherapy; Mucositis due to chemotherapy Allergies No known active allergiesdocumented as of this encounter (statuses as of 06/07/2023) Medications Medication Sig Dispensed Refills Start Date [...] 05/15/2023 Active dexAMETHasone 4 MG Oral Tablet (Decadron)Indication s:Esophageal adenocarcinoma (HCC) Take 3 tablets (12mg) the night before and morning of treatment 6 Tablet 0 06/06/2023 Active dexAMETHasone 4 MG Oral Tablet (Decadron)Indication s:Esophageal adenocarcinoma (HCC) Take 3 tablets (12mg) the night before and morning of treatment 36 Tablet 0 05/03/2023 Discontinue d(Refill) documented as of this encounter (statuses as of 06/07/2023) Active Problems Problem Noted Date Diagnosed Date [...] Overview: 05/26 CTA [facility] Type 2 diabetes mellitus wit h chronic [...] wk. CVA 05/26 [facility]. Left sided weakness. 05/26 TTE [facility] normal EF Grade 2 Farmer Dys. Moderate AV sclerosis and calcified mitral valve--stenosis + mod MR.mild MS. No shunt. 04/24 colon-polyp tubular adenoma. Declined f/u. 2012 adenoma. 08/18 TTE-possilbe vegetation. Mild LVH History of prostate cancer 01/09/2013 Overview: S/p resection Dr Whitehead [facility] HTN, goal below 140/90 06/04/2012 Gout 06/04/2012 Overview: 07/18 indomethicin non-form documented as of this encounter (statuses as of 06/07/2023) Resolved Problems Problem Noted Date Diagnosed Date [...] as of this encounter (statuses as of 06/07/2023) Immunizations Name Administration Dates Next Due COVID-19 mRNA, LNP-s, No Pre serve, 2-Dose Series (Pfizer) 02/20/2021,06/17/2020,05/26/2020 Covid-19, Mrna, Lnp-s, Pf, B ivalent, [...] Sign Reading Time Taken Comments Blood Pressure 115/64 06/06/2023 7:59 AM EDT Pulse 91 06/06/2023 7:59 AM EDT Temperature 36.7 C (98.1 F) 06/06/2023 7:59 AM ED T Respiratory Rate 16 06/06/2023 7:59 AM EDT Oxygen Saturation 97% 06/06/2023 7:59 AM EDT Inhaled Oxygen Concentration - - Weight 55 kg (121 lb 4.8 oz) 06/06/2023 7:59 AM EDT Height - - Body Mass Index 19.58 02/16/2023 12:15 PM EST documented in this encounter Progress Notes * Maribel Broussard CRNP - 06/06/2023 8:00 AM EDT Hematology/Oncology Outpatient Clinic note [facility] [address] [place] [address] Name: Ricky Cason Date: 06/05/2023 CHIEF COMPLAINT: Ricky Cason is a 78 year old male here today for f/u visit today. Patient of Dr. Werner Roland. From Patient chart confirmed with patient. HEMATOLOGY/ONCOLOGY DIAGNOSIS: Lower esophageal adenocarcinoma Cancer Staging T2 N0 M0 DATE OF DIAGNOSIS: 02/16/23 CURRENT TREATMENT: Earlier he was seen by Dr. Olivas, because of comorbid conditions, no surgical intervention offered. Weekly Paclitaxel carboplatin along with radiation treatment (05/09/23 - ) DIAGNOSTIC WORKUP: Recently somewhere in November 2022 [...] chronic back pain). HISTORY OF PRESENT ILLNESS: Ricky Cason is a 78 year old male with a history as outlined above. Currently here for f/u visit today and consideration for C1D29 of treatment. Patient feels that swallowing is getting easier. Using magic mouthwash and this is helping exponentially. Feels he is getting enough calories. Eating high protein diet. Taking prilosec and dexamethasone as prescribed. Baseline peripheral neuropathy in left foot has not worsened. Bowels are moving normally with senokot. 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) 02/19/2021 Aneurysm of left vertebral artery (HCC) 06/03/2022 Benign neoplasm of colon 07/20/12 COLONOSCOPY FLEXIBLE PROXIMAL DIAGNOSTIC performed by Rukhsana Gunter DO at ENDOSCOPY [facility],ADENOMATOUS POLYPS REPEAT COLONOSCOPY IN 5 YEARS Bilateral low back pain without sciatica 02/19/2015 Cerebrovascular accident (CVA) due to thrombosis of right middle cerebral artery (HCC) 09/05/2022 Hx - CVA in May 2022 Constipation due to opioid therapy 03/29/2018 Diabetes mellitus with nephropathy ([facility]) 04/09/2018 Dyslipidemia, goal LDL below 100 11/06/2013 Dyslipidemia, goal LDL below 130 11/07/2013 Gout 06/04/2012 High blood pressure HTN, goal below 140/80 06/04/2012 Internal hemorrhoids 06/04/2012 Kidney disease, chronic, stage IV (GFR 15-29 ml/min) ([facility]) 02/19/2021 Malignant melanoma of face (HCC) 06/04/2012 [...] goal of less than 8.0% ([facility]) 11/27/2017 Past Surgical History: Procedure Laterality Date AV ACCESS, DIRECT ANASTOMOSIS Left 02/09/2023 ARTERIOVENOUS ANASTOMOSIS OPEN DIRECT ANY SITE performed by Brian Payton MD at OR [facility] COLONOSCOPY, DIAGNOSTIC (RECTUM) 07/20/2012 COLONOSCOPY FLEXIBLE PROXIMAL DIAGNOSTIC performed by Rukhsana Gunter DO at ENDOSCOPY [facility],ADENOMATOUS POLYPS REPEAT COLONOSCOPY IN 5 YEARS COLONOSCOPY, DIAGNOSTIC (RECTUM) 05/03/2018 diverticulosis sigmoid colon/biopsies show adenomatous polyps/recall 3 years/COLONOSCOPY FLEXIBLE PROXIMAL DIAGNOSTIC performed by Rukhsana Gunter DO at ENDOSCOPY [facility] COLONOSCOPY/REMOVE LESION 2009 EGD, FLEXIBLE, ENDO MUCOSAL RESECTION N/A 02/16/2023 ESOPHAGOGASTRODUODENOSCOPY (EGD), FLEXIBLE, TRANSORAL: MUCOSAL RESECTION performed by Karlee Buitrago MD at OR [facility] EGD, W/ENDOSCOPIC US N/A 01/13/2023 partially obstructing tumor GEJ/one benign appearing enlarged lymph node/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 ric INJECTION LUMBAR/SACRAL 03/28/2014 INJECTION SPINE LUMBAR OR SACRAL performed by Vicente Latasha Mcpherson, DO at OR [facility] LAPAROSCOPY, W/ INSERT INTRAPERITONEAL CATH N/A 01/12/2022 LAPAROSCOPIC INSERTION INTRAPERITONEAL CANNULA OR CATHETER performed by Florentin Will MD at OR [facility] LUMBAR / SACRAL EPIDURAL, SINGLE LEVEL 08/08/2016 INJECTION TRANSFORAMINAL EPIDURAL LUMBAR OR SACRAL performed by Florissant Latasha Mcpherson, DO at OR [facility] LUMBAR / SACRAL EPIDURAL, SINGLE LEVEL 08/25/2016 INJECTION TRANSFORAMINAL EPIDURAL LUMBAR OR SACRAL performed by Florissant Latasha Mcpherson, DO at OR [facility] LUMBAR SPINE FUSION W/BONE GRAFT 06/11/2014 Dr Corrales MELANOMA AJCC STAGE 0 OR 1A DOCUMENTED 1999 face NEEDLE/PUNCH BIOPSY OF PROSTATE 11/06/2012 Prostate,Needle/Punch Biopsy OTHER 09/16/2022 Permacath placement for HD @[facility] DC COLOSTOMY/SKIN LEVEL CECOSTOMY 09/09/2022 Dr Jorge [facility] DC EXPLORATORY LAPAROTOMY CELIOTOMY W/WO BIOPSY SPX 09/09/2022 Dr Jorge [facility]. ex lap for SBO/sigmoid colostomy, removal PD catheter. 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 120 Tablet 0 No current facility-administered medications for this visit. REVIEW OF SYSTEMS: See HPI - otherwise negative OBJECTIVE: Filed Vitals: 06/06/23 0759 BP: 115/64 Pulse: 91 Resp: 16 Temp: 36.7 C (98.1 F) TempSrc: Oral SpO2: 97% Weight: 55 kg (121 lb 4.8 oz) Wt Readings from Last 5 Encounters: 06/06/23 55 kg (121 lb 4.8 oz) 05/30/23 55.9 kg (123 lb 3.2 oz) 05/23/23 58.2 kg (128 lb 3.2 oz) 05/16/23 57.9 kg (127 lb 9.6 oz) 05/09/23 58.2 kg (128 lb 6.4 oz) PHYSICAL EXAM: ECOG: Performance Status 3 = 40-50% Bedtime [...] and oriented x 4, in wheelchair LABS: Results for orders placed or performed in visit on 06/05/23 COMPREHENSIVE METABOLIC PANEL Result Value Ref Range BUN 16 6 - 20 mg/dL Creatinine 2.1 (H) 0.6 - 1.2 mg/dL Estimated Glomerular Filtration Rate 33 (L) >=60 mL/min Sodium 137 135 - 146 mmol/L Potassium 3.3 (L) 3.5 - 5.1 mmol/L Chloride 95 (L) 98 - 107 mmol/L CO2 33 (H) 22 - 32 mmol/L Anion Gap 9 7 - 15 mmol/L Glucose 90 70 - 120 mg/dL Albumin 4.0 3.8 - 5.0 g/dL AST 21 10 - 50 U/L Alkaline Phosphatase 93 35 - 130 U/L Bilirubin, Total 0.3 <=1.2 mg/dL Calcium 9.4 8.4 - 10.2 mg/dL Protein 7.5 6.0 - 8.3 g/dL ALT 6 (L) 10 - 50 U/L CBC Result Value Ref Range WBC 1.39 (L) 4.00 - 10.80 K/uL RBC 3.03 4.50 - 5.25 M/uL HGB 9.3 (L) 14.0 - 16.8 g/dL HCT 29.6 (L) 40.0 - 48.4 % MCV 97.7 82.0 - 99.5 fL MCH 30.7 27.0 - 34.0 pg MCHC 31.4 32.0 - 36.0 g/dL RDW 16.2 11.5 - 15.5 % PLT 179 140 - 400 K/uL MPV 8.6 6.6 - 11.1 fL DIFFERENTIAL, AUTOMATED Result Value Ref Range WBC 1.39 (L) 4.00 - 10.80 K/uL Neutrophils % 66.9 40.0 - 75.0 % Lymphocytes % 13.7 (L) 18.0 - 42.0 % Monocytes % 15.8 (H) 1.0 - 11.0 % Eosinophils % 1.4 0.0 - 6.0 % Basophils % 2.2 (H) 0.0 - 2.0 % Absolute Neutrophils 0.93 (L) 1.80 - 7.70 K/uL Absolute Lymphocytes 0.19 (L) 1.00 - 4.80 K/ul Absolute Monocytes 0.22 0.00 - 1.10 K/uL Absolute Eosinophils 0.02 0.00 - 0.70 K/uL Absolute Basophils 0.03 0.00 - 0.20 K/uL DIFFERENTIAL, TECHNOLOGIST REVIEW Result Value Ref Range nRBCs Acanthocytes Moderate (A) None Seen Polychromasia Moderate (A) None Seen Target Cells Moderate (A) None Seen *Note: Due to a large number of results and/or encounters for the requested time period, some results have not been displayed. A complete set of results can be found in Results Review. IMPRESSION/PLAN: Lower esophageal adenocarcinoma Encounter for chemotherapy Chemotherapy/radiation induced mucositis Patient is not a surgical candidate Lab results reviewed: overall stable WBC 1.39, ANC 0.93 Hgb 9.3 Ok for carbo/taxol treatment today as scheduled - tolerating well Confirms taking dexamethasone as prescribed Continue magic swizzle for mild mucositis Last day of radiation therapy tentatively scheduled for June 13 RTC as scheduled JACOBO Tariq documented in this encounter Nursing Notes * Roberta Oates MED ASSIST - 06/06/2023 8:00 AM EDT Patient identifed by name and birthdate Do you have any concerns about pain management for today's visit? No Living Will or Advance Directive for Health Care as noted on the problem list. [facility] is a way you can talk to your provider on line through e-mail. Would you like to sign up? I can activate it for you? NO Filed Vitals: 06/06/23 0759 BP: 115/64 Pulse: 91 Resp: 16 Temp: 36.7 C (98.1 F) TempSrc: Oral SpO2: 97% Weight: 55 kg (121 lb 4.8 oz) Patient was instructed to not get [...] Description 06/12/2023 9:10 AM EDT Laboratory Laboratory [facility] [place] [address] [place] [phone] [place], Lab Scenery [address] [facility] [place], [place] [address] 06/13/2023 8:00 AM EDT Hem/Onc Treatment Hematology/Oncology Treatment, [place] [address] [place], [place] [phone] [place], Chair 5 Hem Onc Scenery [address] [facility] [place], [place] [address] 06/22/2023 7:45 AM EDT Office Visit Hematology/Oncology [facility] [place] [address] [place], [place] [phone] Werner Roland MD [address] [place], [place] [address] 06/29/2023 8:00 AM EDT Office Visit Family Practice [facility] [address] [place] [address] Barrett [facility] [place] [address] 01/23/2024 11:00 AM EST Telemedicine [facility] [address] [place] [address] Earle Murphy MD [address] [place], [place] [phone] Scheduled Procedures Name Priority Associated Diagnoses Date/Ti [...] Primary Malignant neoplasm of esophagus, unspecified site Encounter for antineoplastic chemotherapy Mucositis due to chemotherapy Mucositis (ulcerative) due to antineoplastic therapy documented in this encounter Advance Directives Documents on File Type Date Recorded Patient Miller Kiln Dried Salt Expl anation POLST 03/23/2023 4:05 PM POLST [...] patient or by statute hierarchy) Care Teams Precision Instrument Maker Relationship Specialty Start Date End Date Barrett Dacosta MD [address] [place] [address] PCP - General Family Medicine 04/11/18 documented as of this encounter
--- OUTSIDE RECORDS SUMMARY | 2023-07-22 02:19 | External Medical Summary ---
Author Name Unknown Address Unknown Organization [id number][facility] [place] [address] [address] Laboratory Report Ordering Provider Test Date Status KRISTINE SAWYER 06/12/2023 08:42:10 Final Observation Date Value Abnormality Reference (Units ) Status Nucleated erythrocytes/100 leukocytes [Ratio] in Blood by Automated count 06/12/2023 08:42:10 Final Performing Location [facility] [place] [address]
--- OUTSIDE RECORDS SUMMARY | 2023-07-22 02:19 | External Medical Summary ---
Author Name Unknown Address Unknown Organization [facility] [place] [place] [address] Laboratory Report Ordering Provider Test Date Status KRISTINE SAWYER 06/05/2023 08:54:38 Final Observation Date Value Abnormality Reference (Units ) Status WBC, Total 06/05/2023 08:54:38 1.39 Below low normal 4. 00-10.80 (K/uL) Final RBC 06/05/2023 08:54:38 3.03 4.50-5.25 (M/uL) Final Hemoglobin 06/05/2023 08:54:38 9.3 Below low normal 14 .0-16.8 (g/dL) Final HCT 06/05/2023 08:54:38 29.6 Below low normal 40. 0-48.4 (%) Final MCV 06/05/2023 08:54:38 97.7 82.0-99.5 (fL) Final MCH 06/05/2023 08:54:38 30.7 27.0-34.0 (pg) Final MCHC 06/05/2023 08:54:38 31.4 32.0-36.0 (g/dL) Final RDW 06/05/2023 08:54:38 16.2 11.5-15.5 (%) Final Platelets 06/05/2023 08:54:38 179 140-400 (K /uL) Final MPV 06/05/2023 08:54:38 8.6 6.6-11.1 ( fL) Final Performing Location [facility] [place] [address]
--- OUTSIDE RECORDS SUMMARY | 2023-07-22 02:19 | External Medical Summary | Summary of Care ---
Author Name Unknown Organization [facility] Address [address] [place] [address] Phone [phone] Care Team Providers Care Binder Technician Name Role Phone Barrett Dacosta MD Primary Care Provider + Reason for Visit * Reason Comments Outpatient Testing Encounter Details Date Type Department Care Team (Late st Contact Info) Description 06/12/2023 9:10 AM EDT Laboratory Laboratory [facility] [place] [address] [place] [phone] [facility] Lab Scen[address] [facility] [place] [address] Esophageal adenocarcinoma (HCC) Allergies No known active [...] vertebral artery 06/03/2022 Overview: 05/26 CTA [facility] Type 2 diabetes mellitus wit h [...] + high grade dysplasia (? Cancer--sent to [facility] for review)/esophagitis, martha 4 wk. CVA 05/26 [facility]. Left sided weakness. 05/26 TTE [facility] normal EF Grade 2 Farmer Dys. Moderate AV sclerosis and calcified mitral valve--stenosis + mod MR.mild MS. No shunt. 04/24 colon-polyp tubular adenoma. Declined f/u. 2012 adenoma. 08/18 TTE-possilbe vegetation. Mild LVH History of prostate cancer 01/09/2013 Overview: S/p resection Dr Whitehead [facility] HTN, goal below [...] mRNA, LNP-s, No Pre serve, 2-Dose Series ([employer]) 02/20/2021,06/17/2020,05/26/2020 Covid-19, Mrna, Lnp-s, Pf, B ivalent, [...] 06/13/2023 8:00 AM EDT [facility] [address] [place] [phone] [place], Chair [address] Hem Onc [address] [place] [address] 06/22/2023 7:45 AM EDT Office Visit Hematology/Oncology [facility] [address] [place] [phone] Werner Roland MD [address] [place] [address] 06/29/2023 8:00 AM EDT Office Visit Family Practice [facility] [address] [place] [address] Barrett Dacosta MD [address] [place] [address] 01/23/2024 11:00 AM EST Telemedicine [facility] [place] [address] [place] [address] Earle Murphy MD [address] [place], [place] [phone] Pending Results Name Type Priority Associated Diagnoses Date /Time CBC WITH WBC DIFFERENTIAL Lab STAT Esophageal adenocarcinoma (HCC) 06/12/2023 8:42 AM EDT COMPREHENSIVE METABOLIC PANEL Lab STAT Esophageal adenocarcinoma (HCC) 06/12/2023 8:42 AM EDT CBC Lab STAT Esophageal adenocarcinoma (HCC) 06/12/2023 8:42 AM EDT DIFFERENTIAL, AUTOMATED Lab STAT Esophageal adenocarcinoma (HCC) 06/12/2023 8:42 AM EDT Scheduled Procedures Name Priority Associated [...] Documents on File Type Date Recorded Patient Chemical Engraver Expl anation POLST 03/23/2023 4:05 PM POLST [...] patient or by statute hierarchy) Care Teams Binder Technician Relationship Specialty Start Date End Date Barrett Dacosta MD [address] [place] [address] PCP - General Family Medicine 04/11/18 documented as of this encounter
--- OUTSIDE RECORDS SUMMARY | 2023-07-22 02:19 | External Medical Summary ---
Author Name Unknown Address Unknown Organization K09:[facility] [address] [place] [address] Laboratory Report Ordering Provider Test Date Status KRISTINE SAWYER 06/12/2023 08:42:10 Final Observation Date Value Abnormality Reference (Units ) Status BUN 06/12/2023 08:42:10 17 6-20 (mg/dL) Final Creatinine 06/12/2023 08:42:10 1.8 Above high normal 0.6-1.2 (mg/dL) Final Glomerular filtration rate/1.73 sq M.predicted [Volume Rate/Area] in Serum, Plasma or Blood by Creatinine-based formula (CKD-EPI) 06/12/2023 08:42:10 38 Below low normal >=60 (mL/min) Final eGFR is calculated based on the CKD-EPI 2020 equation Sodium 06/12/2023 08:42:10 138 135-146 (m mol/L) Final Potassium 06/12/2023 08:42:10 3.9 3.5-5.1 (m mol/L) Final Cl 06/12/2023 08:42:10 97 Below low normal 98- 107 (mmol/L) Final CO2 06/12/2023 08:42:10 34 Above high normal 22 -32 (mmol/L) Final Anion gap 06/12/2023 08:42:10 7 7-15 (mmol /L) Final Glucose 06/12/2023 08:42:10 88 70-120 (mg /dL) Final Albumin 06/12/2023 08:42:10 3.6 Below low normal 3.8 -5.0 (g/dL) Final AST (Aspartate aminotransferase) 06/12/2023 08:42:10 20 10-50 (U/L) Fin al Alk Phos 06/12/2023 08:42:10 90 35-130 (U/ L) Final Bilirubin, Total 06/12/2023 08:42:10 0.2 <=1 .2 (mg/dL) Final Calcium 06/12/2023 08:42:10 9.2 8.4-10.2 ( mg/dL) Final Protein 06/12/2023 08:42:10 7.0 6.0-8.3 (g /dL) Final ALT (Alanine aminotransferase) 06/12/2023 08:42:10 6 Below low normal 10-50 (U/L) Final Performing Location [facility] [address] [place] [address]
--- OUTSIDE RECORDS SUMMARY | 2023-07-22 02:20 | External Medical Summary | Summary of Care ---
Author Name Unknown Organization [facility] Address [address] [place] [address] Phone [phone] Care Team Providers Care Software Qa Manager Name Role Phone Barrett Dacosta MD Primary Care Provider + Reason for Visit * Reason Comments Follow Up Encounter Details Date Type Department Care Team (Late st Contact Info) Description 06/01/2023 2:30 PM EDT Office Visit Vascular Surg [facility] [address] [place], [place] [phone] Sohail Alamo CRNP [address] [place] [address] AVF (arteriovenous fistula) ([facility])* Allergies No known active allergiesdocumented as of this encounter (statuses as of 06/01/2023) Medications Medication Sig Dispensed Refills Start Date [...] as of this encounter (statuses as of 06/01/2023) Active Problems Problem Noted Date Diagnosed Date [...] + high grade dysplasia (? Cancer--sent to [facility] [place] for review)/esophagitis, martha 4 wk. CVA 05/26 [facility]. Left sided weakness. 05/26 TTE [facility] normal EF Grade 2 Farmer Dys. Moderate AV sclerosis and calcified mitral valve--stenosis + mod MR.mild MS. No shunt. 04/24 colon-polyp tubular adenoma. Declined f/u. 2012 adenoma. 08/18 TTE-possilbe vegetation. Mild LVH History of prostate cancer 01/09/2013 Overview: S/p resection Dr Whitehead [facility] HTN, goal below 140/90 06/04/2012 Gout 06/04/2012 Overview: 07/18 indomethicin non-form documented as of this encounter (statuses as of 06/01/2023) Resolved Problems Problem Noted Date Diagnosed Date [...] as of this encounter (statuses as of 06/01/2023) Immunizations Name Administration Dates Next Due COVID-19 mRNA, LNP-s, No Pre serve, 2-Dose Series ([email or web address]) 02/20/2021,06/17/2020,05/26/2020 Covid-19, Mrna, Lnp-s, Pf, B ivalent, [...] Sign Reading Time Taken Comments Blood Pressure 134/72 06/01/2023 1:48 PM EDT Pulse - - Temperature - - Respiratory Rate - - Oxygen Saturation - - Inhaled Oxygen Concentration - - Weight - - Height - - Body Mass Index - - documented in this encounter Nursing Notes * Annika Krueger LPN - 06/01/2023 1:51 PM EDT Patient was instructed to not get up on the exam table/exam chair until directed and assisted by their provider; patient is to remain seated in the chair/ wheelchair/ exam table/ exam chair for fall prevention and safety reasons. Patient is aware to have assistance to step down off exam table/exam chair with personnel. Patient voiced full comprehension of instructions. Annika Krueger LPN 06/01/2023 1:51 PM documented in this encounter Plan of Treatment Upcoming Encounters Date Type Department Care Team (Late st Contact Info) Description 06/05/2023 8:40 AM EDT Laboratory [place] [phone] [place] [address] 06/06/2023 8:00 AM EDT Office Visit Hematology/[place] [phone] Maribel Broussard CRNP [address] [facility] [place] [address] 06/06/2023 8:30 AM EDT [facility] [address] [place] [phone] Ivory, Chair 9 Hem Onc Scenery [address] [place] [address] 06/22/2023 7:45 AM EDT Office Visit Hematology/Oncology [facility] [address] [place] [address] Werner Roland MD [address] [place] [address] 06/29/2023 8:00 AM EDT Office Visit Family Practice [facility] [address] [facility] [place] [address] Barrett Dacosta MD [address] [facility] [place] [address] 01/23/2024 11:00 AM EST Telemedicine [facility] [address] [place] [address] Earle Murphy MD [address], [place] [phone] Scheduled Procedures Name Priority Associated Diagnoses Date/Ti [...] as of this encounter Visit Diagnoses Diagnosis AVF (arteriovenous fistula) (HCC)- Primary Arteriovenous fistula, acquired documented in this encounter Advance Directives Documents on File Type Date Recorded Patient Snuff Packing Machine Operator Expl anation POLST 03/23/2023 4:05 PM [...] patient or by statute hierarchy) Care Teams Software Qa Manager Relationship Specialty Start Date End Date Barrett Dacosta MD [address] [place] [address] PCP - General Family Medicine 04/11/18 documented as of this encounter
--- OUTSIDE RECORDS SUMMARY | 2023-07-22 02:20 | External Medical Summary ---
Author Name Unknown Address Unknown Organization [facility] [address] [place] [address] Laboratory Report Ordering Provider Test Date Status KRISTINE SAWYER 06/05/2023 08:54:38 Final Observation Date Value Abnormality Reference (Units ) Status BUN 06/05/2023 08:54:38 16 6-20 (mg/dL) Final Creatinine 06/05/2023 08:54:38 2.1 Above high normal 0.6-1.2 (mg/dL) Final Glomerular filtration rate/1.73 sq M.predicted [Volume Rate/Area] in Serum, Plasma or Blood by Creatinine-based formula (CKD-EPI) 06/05/2023 08:54:38 33 Below low normal >=60 (mL/min) Final eGFR is calculated based on the CKD-EPI 2020 equation Sodium 06/05/2023 08:54:38 137 135-146 (m mol/L) Final Potassium 06/05/2023 08:54:38 3.3 Below low normal 3.5 -5.1 (mmol/L) Final Cl 06/05/2023 08:54:38 95 Below low normal 98- 107 (mmol/L) Final CO2 06/05/2023 08:54:38 33 Above high normal 22 -32 (mmol/L) Final Anion gap 06/05/2023 08:54:38 9 7-15 (mmol /L) Final Glucose 06/05/2023 08:54:38 90 70-120 (mg /dL) Final Albumin 06/05/2023 08:54:38 4.0 3.8-5.0 (g /dL) Final AST (Aspartate aminotransferase) 06/05/2023 08:54:38 21 10-50 (U/L) Fin al Alk Phos 06/05/2023 08:54:38 93 35-130 (U/ L) Final Bilirubin, Total 06/05/2023 08:54:38 0.3 <=1 .2 (mg/dL) Final Calcium 06/05/2023 08:54:38 9.4 8.4-10.2 ( mg/dL) Final Protein 06/05/2023 08:54:38 7.5 6.0-8.3 (g /dL) Final ALT (Alanine aminotransferase) 06/05/2023 08:54:38 6 Below low normal 10-50 (U/L) Final Performing Location [facility] [address] [place] [address]
--- OUTSIDE RECORDS SUMMARY | 2023-07-22 02:20 | External Medical Summary | Summary of Care ---
Author Name Unknown Organization [facility] Address [address] [place] [address] Phone [phone] Care Team Providers Care Special Needs Caregiver Name Role Phone Barrett Dacosta MD Primary Care Provider + Reason for Visit * Reason Onset Date Comments Appointment 05/29/2023 Encounter Details Date Type Department Care Team (Late st Contact Info) Description 05/29/2023 Telephone Vascular Surg [facility] [address] [place], [place] [phone] Services, Scheduling [address] [place] [address] Appointment Allergies No known active allergiesdocumented as of this encounter (statuses as of 05/31/2023) Medications Medication Sig Dispensed Refills Start Date [...] Active Torsemide 100 MG Oral Tablet (Demadex) TAKE 1 TABLET BY MOUTH ONCE DAILY 0 03/27/2023 Active Vitamin D3 50 MCG [...] as of this encounter (statuses as of 05/31/2023) Active Problems Problem Noted Date Diagnosed Date [...] syndrome) 09/05/2022 Atrioventricular block, Mobitz type 1, [facility] 09/05/2022 1st degree AV block 09/05/2022 Anemia due to chronic kidney disease, on chronic dialysis 06/03/2022 Aneurysm of left vertebral artery 06/03/2022 Overview: 05/26 CTA [facility] Type 2 diabetes mellitus wit h [...] review)/esophagitis, martha 4 wk. CVA 05/26 [facility]. Left sided weakness. 05/26 TTE [facility] normal EF Grade 2 Farmer Dys. Moderate AV sclerosis and calcified mitral valve--stenosis + mod MR.mild MS. No shunt. 04/24 colon-polyp tubular adenoma. Declined f/u. 2012 adenoma. 08/18 TTE-possilbe vegetation. Mild LVH History of prostate cancer 01/09/2013 Overview: S/p resection Dr Whitehead [facility] HTN, goal below 140/90 06/04/2012 Gout 06/04/2012 Overview: 07/18 indomethicin non-form documented as of this encounter (statuses as of 05/31/2023) Resolved Problems Problem Noted Date Diagnosed Date [...] as of this encounter (statuses as of 05/31/2023) Immunizations Name Administration Dates Next Due COVID-19 mRNA, LNP-s, No Pre serve, 2-Dose Series ([facility]) 02/20/2021,06/17/2020,05/26/2020 Covid-19, Mrna, Lnp-s, Pf, B ivalent, [...] encounter Miscellaneous Notes * Telephone Encounter - Kb Guidry OSA - 05/31/2023 10:58 AM EDT I called and spoke to patient's Jacklyn and scheduled patient for tomorrow (05/31) for TDC removal. * Telephone Encounter - Laith Lord CRNP - 05/31/2023 6:25 AM EDT Any success speaking with anyone? JACOBO Feliciano 05/31/2023 6:25 AM d * Telephone Encounter - Kb Guidry OSA - 05/30/2023 9:59 AM EDT Attempted to call patient's to schedule but voicemail box was full. I will try again shortly. * Telephone Encounter - Laith Lord CRNP - 05/29/2023 12:45 PM EDT Secretaries, We didn't place TDC (placed at [facility] by Dr. Miller); however, we are willing to remove. If they want us to remove, needs [place] be [place] [facility]. Can offer any day this week or 06/04 JACOBO Feliciano 05/29/2023 12:46 PM * Telephone Encounter - Danita Candelaria OSA - 05/29/2023 12:40 PM EDT Nurse from dialysis calling requesting removal of cath in either [facility] or [place]. Please call pt's on her mobile number [phone] Thank you LAIN Phillips documented in this encounter Plan of Treatment Upcoming Encounters Date Type Department Care Team (Late st Contact Info) Description 06/01/2023 2:30 PM EDT Office Visit Vascular Surg [facility] [address] [place] [address] Sohail Alamo CRNP [address] [place] [address] 06/05/2023 8:40 AM EDT Laboratory Laboratory [address] [place] [phone] Ivory, Lab [address] [facility] [place] [address] 06/06/2023 8:00 AM EDT Office Visit Hematology/Oncology [facility] [address] [place] [phone] Maribel Broussard CRNP [address] [place] [address] [place] [address] 06/06/2023 8:30 AM EDT Hem/Onc Treatment Hematology/Oncology Treatment, [place] 200 [facility] [place] [phone] Ivory, Chair 9 Hem On[address] [place] [address] 06/22/2023 7:45 AM EDT Office Visit Hematology/Oncology [facility] [address] [place] [address] Werner Roland MD [address] [place] [address] 06/29/2023 8:00 AM EDT Office Visit Family Practice [facility] [address] [facility] [place] [address] Barrett Dacosta MD [address] [facility] [place] [address] 01/23/2024 11:00 AM EST [facility] [place] [address] [place] [address] Earle Murphy MD [address] [place] [address] Scheduled Procedures Name Priority Associated Diagnoses Date/Ti [...] 07/13/2023 01/12/2023, 0105/2022, 08/16/2021, Additional history exists Diabetic Eye Exam [...] Documents on File Type Date Recorded Patient Journalism Internship Expl anation POLST 03/23/2023 4:05 PM POLST [...] patient or by statute hierarchy) Care Teams Special Needs Caregiver Relationship Specialty Start Date End Date Barrett Dacosta MD [address] [place] [address] PCP - General Family Medicine 04/11/18 documented as of this encounter
--- OUTSIDE RECORDS SUMMARY | 2023-07-22 02:20 | External Medical Summary ---
Author Name Unknown Address Unknown Organization [facility] [address] Laboratory Report Ordering Provider Test Date Status KRISTINE SAWYER 06/05/2023 08:54:38 Final Observation Date Value Abnormality Reference (Units ) Status Nucleated erythrocytes/100 leukocytes [Ratio] in Blood by Automated count 06/05/2023 08:54:38 Final Acanthocytes [Presence] in Blood by Light microscopy 06/05/2023 08:54:38 Moderate Abnormal None Seen Final Polychromasia [Presence] in Blood by Light microscopy 06/05/2023 08:54:38 Moderate Abnormal None Seen Final Target cells [Presence] in Blood by Light microscopy 06/05/2023 08:54:38 Moderate Abnormal None Seen Final Performing Location [facility] [address]
--- OUTSIDE RECORDS SUMMARY | 2023-07-22 02:20 | External Medical Summary | Summary of Care ---
Author Name Unknown Organization [facility] Address [address] [facility] [place] [address] Phone [phone] Care Team Providers Care Seed Potato Cutter Name Role Phone Barrett Dacosta MD Primary Care Provider + Reason for Visit * Reason Comments Chemotherapy [id number] Taxol/Carbo * Episode Based Medications (Routine) - Authorized Specialty Diagnoses / Procedures Referred By Contbrian t Referred To Contact Diagnoses Encounter for antineoplastic chemotherapy Esophageal adenocarcinoma (HCC) Procedures MI PALONOSETRON HCL MI CARBOPLATIN INJECTION MI PACLITAXEL INJECTION Werner Roland MD [address] [place] [address] [place] [address] Anc Hem/Onc [address] [address] Referral ID Status Reason Start Date Expiration Date V isits Requested Visits Authorized [id number] Authorized 05/03/2023 05/03/2024 999 99 Encounter Details Date Type Department Care Team (Latest Contact Info) Description 05/30/2023 11:45 AM EDT Hem/Onc Treatment Hematology/Oncolog y Treatment, [address] [place] [address] Ivory, Chair [address] [place] [address] Encounter for antineoplastic chemotherapy*; Esophageal adenocarcinoma (HCC) Allergies No known active allergiesdocumented as of this encounter (statuses as of 05/30/2023) Medications Medication Sig Dispensed Refills Start Date [...] Vitamin D3 50 MCG (1999 [place]) Oral CapsuleIndications:S/ p left hip fracture [...] as of this encounter (statuses as of 05/30/2023) Active Problems Problem Noted Date Diagnosed Date [...] + high grade dysplasia (? Cancer--sent to [facility] for review)/esophagitis, martha [...] as of this encounter (statuses as of 05/30/2023) Resolved Problems Problem Noted Date Diagnosed Date [...] as of this encounter (statuses as of 05/30/2023) Immunizations Name Administration Dates Next Due COVID-19 mRNA, LNP-s, No Pre serve, 2-Dose Series ([place]) 02/20/2021,06/17/2020,05/26/2020 Covid-19, Mrna, Lnp-s, Pf, B ivalent, [...] AM EDT Laboratory Laboratory [place] [address] [place] [phone] [address] [place] [address] 06/06/2023 8:00 AM EDT Office Visit Hematology/Oncology [facility] [place] [address] [place] [phone] Maribel Broussard CRNP 400 [facility] [place] [address] 06/06/2023 8:30 AM EDT Hem[facility]c [facility] [address] [place], [place] [phone] Ivroy, Chair 9 Hem Onc [address] [place] [address] 06/22/2023 7:45 AM EDT Office Visit Hematology/Oncology [facility] [place] 200 [facility] [place] [address] Werner Roland MD [address] [facility] [place] [address] 06/29/2023 8:00 AM EDT Office Visit Family [facility] [address] [place] [address] Barrett Dacosta MD 132 [place] [address] 01/23/2024 11:00 AM EST Telemedicine [facility] [address] [place] [address] Earle Murphy MD [address] [place], [place] [phone] Scheduled Procedures Name Priority Associated Diagnoses Date/Ti [...] ONCE PRN Other, Hypersensitivity Reaction, Starting on Mon05/30/23 at 1203, Until Mon05/31/23 at 1202, For 24 hours EPINEPHrine 1 MG/ML inj 0.3 mg 0.3 mg, Intramuscular, ONCE PRN Other, Hypersensitivity Reaction or Anaphylaxis, Starting on Mon05/30/23 at 1203, Until Mon05/31/23 at 1202, For 24 hours hEParin 100 UNIT/ML Lock Flush inj 500 Units 500 Units (5 mL), IV Lock, PRN Other, IV Flush, Starting on Mon05/30/23 at 1203, Until Mon05/31/23 at 1202, For 24 hours, Do not flush if lock, PICC, or central line not in place; IV infusing or unable to flush. Hydrocortisone Sod Suc (PF) (Solu-Cortef) inj 100 mg 100 mg, IV Push, ONCE PRN Other, Hypersensitivity Reaction, Starting on Mon05/30/23 at 1203, Until Mon05/31/23 at 1202, For 24 hours LORAzepam (Ativan) tab 0.5 mg 0.5 mg, Oral, ONCE PRN Anxiety, Nausea, Starting on Mon05/30/23 at 1315, Until Discontinued NSS infusion Intravenous, at 50 mL/hr, PRN, Starting on Mon05/30/23 at 1315, Until Discontinued, Maintenance line Start Infusion 05/30/2023 12:00 PM EDT 50 mL/hr oxygen GAS Inhalation, OXYGEN, First dose on Mon05/30/23 at 1600, Until Discontinued, Device/Managed by: Low [...] Push, PRN Other, IV Flush, Starting on Mon05/30/23 at 1203, Until Mon05/31/23 at 1202, For 24 hours, Do not flush if [...] Given 05/30/2023 12:21 PM EDT 20 mg PACLitaxel (Taxol) 84 mg [...] Documents on File Type Date Recorded Patient Paper Sorter And Counter Expl anation POLST 03/23/2023 4:05 PM POLST [...] patient or by statute hierarchy) Care Teams Seed Potato Cutter Relationship Specialty Start Date End Date Barrett Dacosta MD [address] [place] [address] PCP - General Family Medicine 04/11/18 documented as of this encounter
--- OUTSIDE RECORDS SUMMARY | 2023-07-22 02:20 | External Medical Summary ---
Author Name Unknown Address Unknown Organization [facility] [address] [place] [address] Laboratory Report Ordering Provider Test Date Status KRISTINE SAWYER 06/05/2023 08:54:38 Final Observation Date Value Abnormality Reference (Units ) Status SYNC LEUKOCYTES IN BLOOD BY AUTOMATED COUNT 06/05/2023 08:54:38 1.39 Below low normal 4.00-10.80 (K/uL) Final Segs 06/05/2023 08:54:38 66.9 40.0-75.0 (%) Final Lymphs % 06/05/2023 08:54:38 13.7 Below low normal 18.0-42.0 (%) Final Monos 06/05/2023 08:54:38 15.8 Above high normal 1.0-11.0 (%) Final Eosinophils 06/05/2023 08:54:38 1.4 0.0-6.0 (%) Final Basos 06/05/2023 08:54:38 2.2 Above high normal 0.0-2.0 (%) Final Absolute Segs 06/05/2023 08:54:38 0.93 Below low normal 1.80-7.70 (K/uL) Final Lymphs, absolute 06/05/2023 08:54:38 0.19 Below low normal 1.00-4.80 (K/ul) Final Monos, Abs 06/05/2023 08:54:38 0.22 0.00-1.10 (K/uL) Final Eos, Abs 06/05/2023 08:54:38 0.02 0.00-0.70 (K/uL) Final Basos, Abs 06/05/2023 08:54:38 0.03 0.00-0.20 (K/uL) Final Performing Location [facility] [address] [place] [address]
--- OUTSIDE RECORDS SUMMARY | 2023-07-22 02:20 | External Medical Summary | Summary of Care ---
Author Name Unknown Organization [facility] Address [address] [place] [address] Phone [phone] Care Team Providers Care Orthopedic Shoe Maker Name Role Phone Barrett Dacosta MD Primary Care Provider + Reason for Visit * Reason Onset Date Comments Appointment 05/29/2023 Encounter Details Date Type Department Care Team (Late st Contact Info) Description 05/29/2023 Telephone Vascular Surg [facility] [address] [place], [place] [phone] Services, Scheduling [address] [place] [address] Appointment Allergies No known active allergiesdocumented as [...] 09/05/2022 Atrioventricular block, Mobitz type 1, [facility] 09/05/2022 1st degree AV block 09/05/2022 Anemia due to chronic kidney disease, on chronic dialysis 06/03/2022 Aneurysm of left vertebral artery 06/03/2022 Overview: 05/26 CTA [facility] Type 2 diabetes mellitus wit h chronic [...] + high grade dysplasia (? Cancer--sent [facility] for review)/esophagitis, martha 4 wk. CVA 05/26 [...] cancer 01/09/2013 Overview: S/p resection Dr Whitehead [facility] HTN, goal below [...] mRNA, LNP-s, No Pre serve, 2-Dose Series ([employer]) 02/20/2021,06/17/2020,05/26/2020 Covid-19, Mrna, Lnp-s, Pf, B ivalent, [...] encounter Miscellaneous Notes * Telephone Encounter - Laith Lord CRNP [...] Secretaries, We didn't place TDC (placed at [facility] by Dr. Miller); however, we are willing to remove. If they want us to remove, needs to be done at [facility]. Can offer any day this week or 06/04 JACOBO Feliciano 05/29/2023 12:46 PM * Telephone Encounter - Danita Candelaria OSA - 05/29/2023 12:40 PM EDT Nurse from dialysis calling requesting removal of cath in either [facility] or [place]. Please call pt's on her mobile number [phone] Thank you LIAN Phillips documented in this encounter Plan of Treatment Upcoming Encounters Date Type Department Care Team (Late st Contact Info) Description 06/05/2023 8:40 AM EDT Laboratory Laboratory [facility] [place] [address] [place] [phone] Ivory, Lab [facility] [address] [place] [address] 06/06/2023 8:00 AM EDT Office Visit Hematology/Oncology [facility] [place] [address] [place] [phone] Maribel Broussard CRNP [address] [place], [place] [phone] 06/06/2023 8:30 AM EDT Hem/Onc Treatment Hematology/Oncology Treatment, [place] [address] [place] [phone] Ivory, Chair 9 Hem Onc [address] [place] [address] 06/22/2023 7:45 AM EDT Office Visit Hematology/Oncology [facility] [place] [address] [place] [phone] Werner Roland MD [address] [place] [address] 06/29/2023 8:00 AM EDT Office Visit Family Practice [facility] [address] [address] Barrett Dacosta MD [address] [place] [address] 01/23/2024 11:00 AM EST Telemedicine Neurosurgery, [address] [address] Earle Murphy MD [address] [place] [address] Scheduled Procedures Name Priority Associated Diagnoses Date/Ti [...] on File Type Date Recorded Patient Technical Staff Assistant Expl anation POLST 03/23/2023 4:05 PM POLST [...] patient or by statute hierarchy) Care Teams Orthopedic Shoe Maker Relationship Specialty Start Date End Date Barrett Dacosta MD [address] [place] [address] PCP - General Family Medicine 04/11/18 documented as of this encounter
--- OUTSIDE RECORDS SUMMARY | 2023-07-22 02:21 | External Medical Summary | Summary of Care ---
Author Name Unknown Organization [facility] Address [address] [place] [facility] [place] [address] Phone [phone] Care Team Providers Care Nuclear Criticality Safety Engineer Name Role Phone Barrett Dacosta MD Primary Care Provider + Reason for Visit * Reason Comments Chemotherapy Encounter Details Date Type Department Care Team (Late st Contact Info) Description 05/23/2023 8:00 AM EDT Office Visit Hematology/Oncology [facility] [place] [address] [facility] [address] Maribel Broussard CRNP [address] [facility] [place] [address] Esophageal adenocarcinoma (HCC)*; Encounter for antineoplastic chemotherapy; Mucositis due to chemotherapy Allergies No known active allergiesdocumented as of this encounter (statuses as of 05/24/2023) Medications Medication Sig Dispensed Refills Start Date [...] as of this encounter (statuses as of 05/24/2023) Active Problems Problem Noted Date Diagnosed Date [...] left vertebral artery 06/03/2022 Overview: 05/26 CTA [facility] Type 2 diabetes mellitus wit h [...] Cancer--[place] [facility] [place]esophagitis, martha 4 wk. CVA 05/26 [facility]. Left sided weakness. 05/26 TTE [facility] normal EF Grade 2 Farmer Dys. [...] as of this encounter (statuses as of 05/24/2023) Resolved Problems Problem Noted Date Diagnosed Date [...] as of this encounter (statuses as of 05/24/2023) Immunizations Name Administration Dates Next Due COVID-19 mRNA, LNP-s, No Pre serve, 2-Dose Series ([employer]) 02/20/2021,06/17/2020,05/26/2020 Covid-19, Mrna, Lnp-s, Pf, B ivalent, [...] Sign Reading Time Taken Comments Blood Pressure 111/69 05/23/2023 7:55 AM EDT Pulse 81 05/23/2023 7:55 AM EDT Temperature 36.6 C (97.8 F) 05/23/2023 7:55 AM ED T Respiratory Rate 18 05/23/2023 7:55 AM EDT Oxygen Saturation 93% 05/23/2023 7:55 AM EDT Inhaled Oxygen Concentration - - Weight 58.2 kg (128 lb 3.2 oz) 05/23/2023 7:55 A M EDT Height - - Body Mass Index 20.69 02/16/2023 12:15 PM EST documented in this encounter Progress Notes * Maribel Broussard CRNP - 05/23/2023 8:00 AM EDT Hematology/Oncology Outpatient Clinic note [facility] [address] [place] [address] Name: Ricky Cason Date: 05/22/2023 CHIEF COMPLAINT: Ricky Cason is a 78 year old male here today for f/u visit today. Patient of Dr. Werner Roland. From Patient chart confirmed with patient. From Dr. Werner Roland note 05/02/23. HEMATOLOGY/ONCOLOGY DIAGNOSIS: Lower esophageal adenocarcinoma Cancer Staging [...] for f/u visit today and consideration for C1D15 of treatment. Still has some trouble swallowing soft foods and protein shakes. Denies any issues swallowing water and thin liquids. Difficulty swallowing comes and goes. Feels he is getting enough calories. Eating high protein diet. Swallowing not worse since starting treatment. Taking prilosec and dexamethasone as prescribed. Does get a cold sore on his lip nowand then. Heals with Oragel. Radiation also ordered magic swizzle. Denies nausea/vomiting. Baselineperipheral neuropathy in left foot has not worsened. Bowels are moving normally with senokot. Past Medical History: Diagnosis Date Abnormal echocardiogram 08/19/2014 Anemia due to chronic kidney disease, on chronic dialysis ([facility]) 06/03/2022 Anemia in stage 4 chronic kidney disease (HCC) 02/19/2021 Aneurysm of left vertebral artery ([facility]) 06/03/2022 Benign neoplasm of colon 07/20/12 COLONOSCOPY FLEXIBLE PROXIMAL DIAGNOSTIC performed by Rukhsana Gunter DO at [facility],ADENOMATOUS POLYPS REPEAT COLONOSCOPY IN 5 YEARS Bilateral low back pain without sciatica 02/19/2015 Cerebrovascular accident (CVA) due to thrombosis of right middle cerebral artery ([facility]) 09/05/2022 Hx - CVA in May 2022 Constipation due to opioid therapy 03/29/2018 Diabetes mellitus with nephropathy ([facility]) 04/09/2018 Dyslipidemia, goal LDL below 100 11/06/2013 Dyslipidemia, goal LDL below 130 11/07/2013 Gout 06/04/2012 High blood pressure HTN, goal below 140/80 06/04/2012 Internal hemorrhoids 06/04/2012 Kidney disease, chronic, stage IV (GFR 15-29 ml/min) ([facility]) 02/19/2021 Malignant melanoma of face ([facility]) 06/04/2012 Malignant melanoma of skin of other and unspecified parts of face MEDICATION USE AGREEMENT 02/19/2015 Microalbuminuria 04/24/2014 OA (osteoarthritis) of knee 11/06/2013 Other and unspecified hyperlipidemia Hypercholesterolemia Prediabetes 07/18/2014 Prostate cancer ([facility]) 11/13/12 marco 7 and 6 Recurrent sinus infections 04/24/2014 Status post lumbar spinal fusion 06/17/2014 06/11/14 Sia Type 2 diabetes mellitus with chronic kidney disease on chronic dialysis ([facility]) 03/01/2022 Type 2 diabetes mellitus with hemoglobin A1c goal of less than 8.0% ([facility]) 11/27/2017 Past Surgical History: Procedure Laterality Date AV ACCESS, DIRECT ANASTOMOSIS Left 02/09/2023 ARTERIOVENOUS ANASTOMOSIS OPEN DIRECT ANY SITE performed by Brian Payton MD at [place] [facility] [place] COLONOSCOPY, DIAGNOSTIC (RECTUM) 07/20/2012 COLONOSCOPY FLEXIBLE PROXIMAL DIAGNOSTIC performed by Rukhsana Gunter DO at [facility],ADENOMATOUS POLYPS REPEAT COLONOSCOPY IN 5 YEARS COLONOSCOPY, DIAGNOSTIC (RECTUM) 05/03/2018 diverticulosis sigmoid colon/biopsies show adenomatous polyps/recall 3 years/COLONOSCOPY FLEXIBLE PROXIMAL DIAGNOSTIC performed by Rukhsana Gunter DO at ENDOSCOPY [facility] COLONOSCOPY/REMOVE LESION 2009 EGD, FLEXIBLE, ENDO MUCOSAL RESECTION N/A 02/16/2023 ESOPHAGOGASTRODUODENOSCOPY (EGD), FLEXIBLE, TRANSORAL: MUCOSAL RESECTION performed by Karlee Buitrago MD at OR [facility] EGD, W/ENDOSCOPIC US N/A 01/13/2023 partially obstructing tumor GEJ/one benign appearing enlarged lymph node/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 ric INJECTION LUMBAR/SACRAL 03/28/2014 INJECTION SPINE LUMBAR OR SACRAL performed by [place] Latasha Mcpherson, DO at OR [facility] LAPAROSCOPY, W/ INSERT INTRAPERITONEAL CATH N/A 01/12/2022 LAPAROSCOPIC INSERTION INTRAPERITONEAL CANNULA OR CATHETER performed by Florentin Will MD at OR [facility] LUMBAR / SACRAL EPIDURAL, SINGLE LEVEL 08/08/2016 INJECTION TRANSFORAMINAL EPIDURAL LUMBAR OR SACRAL performed by [facility] [place], DO at OR [facility] LUMBAR / SACRAL EPIDURAL, SINGLE LEVEL 08/25/2016 INJECTION TRANSFORAMINAL EPIDURAL LUMBAR OR SACRAL performed by [facility] DO [place] at OR [facility] LUMBAR SPINE FUSION W/BONE GRAFT 06/11/2014 Dr Corrales MELANOMA AJCC STAGE 0 OR 1A DOCUMENTED 1999 face NEEDLE/PUNCH BIOPSY OF PROSTATE 11/06/2012 Prostate,Needle/Punch Biopsy OTHER 09/16/2022 Permacath placement for HD @[facility] AL COLOSTOMY/SKIN LEVEL CECOSTOMY 09/09/2022 Dr Jorge [facility] AL EXPLORATORY LAPAROTOMY CELIOTOMY W/WO BIOPSY SPX 09/09/2022 Dr Jorge [facility]. ex lap for SBO/sigmoid colostomy, removal PD catheter. 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 Employer: [employer] Comment: [employer] Tobacco [...] MEALS Torsemide 100 MG Oral Tablet (Demadex) TAKE 1 TABLET BY MOUTH ONCE DAILY (Patient not taking: Reported on 04/11/2023) Vitamin D3 50 MCG (1999 UT) Oral Capsule Take 1 Capsule by [...] HPI - otherwise negative OBJECTIVE: Filed Vitals: 05/23/23 0755 BP: 111/69 Pulse: 81 Resp: 18 Temp: 36.6 C (97.8 F) TempSrc: Tympanic SpO2: 93% Weight: 58.2 kg (128 lb 3.2 oz) Wt Readings from Last 5 Encounters: 05/23/23 58.2 kg (128 lb 3.2 oz) 05/16/23 57.9 kg (127 lb 9.6 oz) 05/09/23 58.2 kg (128 lb 6.4 oz) 04/11/23 60.8 kg (134 lb) 03/22/23 63.5 kg (139 lb 14.4 oz) PHYSICAL EXAM: ECOG: Performance Status 3 [...] orders placed or performed in visit on 05/22/23 COMPREHENSIVE METABOLIC PANEL Result Value Ref Range BUN 19 6 - 20 mg/dL Creatinine 2.2 (H) 0.6 - 1.2 mg/dL Estimated Glomerular Filtration Rate 30 (L) >=60 mL/min Sodium 141 135 - 146 mmol/L Potassium 3.9 3.5 - 5.1 mmol/L Chloride 98 98 - 107 mmol/L CO2 33 (H) 22 - 32 mmol/L Anion Gap 10 7 - 15 mmol/L Glucose 85 70 - 120 mg/dL Albumin 3.7 (L) 3.8 - 5.0 g/dL AST 20 10 - 50 U/L Alkaline Phosphatase 96 35 - 130 U/L Bilirubin, Total 0.4 <=1.2 mg/dL Calcium 9.7 8.4 - 10.2 mg/dL Protein 7.6 6.0 - 8.3 g/dL ALT 6 (L) 10 - 50 U/L CBC Result Value Ref Range WBC 2.32 (L) 4.00 - 10.80 K/uL RBC 3.13 4.50 - 5.25 M/uL HGB 9.6 (L) 14.0 - 16.8 g/dL HCT 30.9 (L) 40.0 - 48.4 % MCV 98.7 82.0 - 99.5 fL MCH 30.7 27.0 - 34.0 pg MCHC 31.1 32.0 - 36.0 g/dL RDW 15.6 11.5 - 15.5 % PLT 246 140 - 400 K/uL MPV 9.6 6.6 - 11.1 fL DIFFERENTIAL, AUTOMATED Result Value Ref Range WBC 2.32 (L) 4.00 - 10.80 K/uL Neutrophils % 64.2 40.0 - 75.0 % Lymphocytes % 20.7 18.0 - 42.0 % Monocytes % 9.1 1.0 - 11.0 % Eosinophils % 4.7 0.0 - 6.0 % Basophils % 1.3 0.0 - 2.0 % Absolute Neutrophils 1.49 (L) 1.80 - 7.70 K/uL Absolute Lymphocytes 0.48 (L) 1.00 - 4.80 K/ul Absolute Monocytes 0.21 0.00 - 1.10 K/uL Absolute Eosinophils 0.11 0.00 - 0.70 K/uL Absolute Basophils 0.03 0.00 - 0.20 K/uL DIFFERENTIAL, TECHNOLOGIST REVIEW Result Value Ref Range nRBCs IMPRESSION/PLAN: Lower esophageal adenocarcinoma Encounter for chemotherapy Chemotherapy/radiation induced mucositis Patient is not a surgical candidate Lab results reviewed: WBC 2.32, ANC 1.49 Hgb 9.6 Ok for carbo/taxol treatment today as scheduled - tolerating well Has been ordered magic swizzle by Rad/Onc for mild mucositis Last day of radiation therapy tentatively scheduled for June 08 RTC in two weeks with provider for chemo return RTC in four weeks with physician with cbc/diff and cmp JACOBO Tariq documented in this encounter Nursing Notes * Roberta Oates MED ASSIST - 05/23/2023 7:56 AM EDT Patient identifed by name and birthdate Do you have any concerns about pain management for today's visit? No Living Will or Advance Directive for Health Care as noted on the problem list. [employer] is a way you can talk to your provider on line through e-mail. Would you like to sign up? I can activate it for you? DECLINES Filed Vitals: 05/23/23 0755 BP: 111/69 Pulse: 81 Resp: 18 Temp: 36.6 C (97.8 F) TempSrc: Tympanic SpO2: 93% Weight: 58.2 kg (128 lb 3.2 oz) Patient was instructed to not get [...] Team (Late st Contact Info) Description 05/29/2023 9:20 AM EDT Laboratory [facility] [address] [place] [phone] [place] [facility] [address] [place] [address] 05/30/2023 11:45 AM EDT [facility] [address] [facility] [address], [place] [phone] Ivory, Chair 8 Hem Onc Sc[address] [place], [place] [address] 06/05/2023 8:40 AM EDT Laboratory Laboratory [facility] [place] [address] [place], [place] [phone] Ivory, Lab Scenery [address] [place], [place] [address] 06/06/2023 8:00 AM EDT Office Visit Hematology/Oncology [facility] [address] [place], [place] [phone] Maribel Broussard CRNP [address] [place] [address] 06/06/2023 8:30 AM EDT Hem/Onc Treatment [facility]/Oncology [facility] [address] [facility], [place] [phone] Ivory, Chair 9 Hem Onc [facility] [address] [facility] [place], [place] [address] 06/22/2023 7:45 AM EDT Office Visit Hematology/Oncology [facility] [address] [place], [place] [phone] Werner Roland MD [address] [place] [address] 06/29/2023 8:00 AM EDT Office Visit [facility] [address] [place] [address] Barrett Dacosta MD [address] [place] [address] 01/23/2024 11:00 AM EST Telemedicine Brock, Javon [address] [place] [address] Earle Murphy MD [address] [place] [address] Scheduled Procedures Name Priority Associated Diagnoses Date/Ti [...] Documents on File Type Date Recorded Patient Apron Worker Expl anation POLST 03/23/2023 4:05 PM [...] patient or by statute hierarchy) Care Teams Nuclear Criticality Safety Engineer Relationship Specialty Start Date End Date Barrett Dacosta MD [address] [place] [address] PCP - General Family Medicine 04/11/18 documented as of this encounter
--- OUTSIDE RECORDS SUMMARY | 2023-07-22 02:21 | External Medical Summary ---
Author Name Unknown Address Unknown Organization [id number] [place] [address] Laboratory Report Ordering Provider Test Date Status KRISTINE SAWYER 05/22/2023 08:54:12 Final Observation Date Value Abnormality Reference (Units ) Status WBC, Total 05/22/2023 08:54:12 2.32 Below low normal 4. 00-10.80 (K/uL) Final RBC 05/22/2023 08:54:12 3.13 4.50-5.25 (M/uL) Final Hemoglobin 05/22/2023 08:54:12 9.6 Below low normal 14 .0-16.8 (g/dL) Final HCT 05/22/2023 08:54:12 30.9 Below low normal 40. 0-48.4 (%) Final MCV 05/22/2023 08:54:12 98.7 82.0-99.5 (fL) Final MCH 05/22/2023 08:54:12 30.7 27.0-34.0 (pg) Final MCHC 05/22/2023 08:54:12 31.1 32.0-36.0 (g/dL) Final RDW 05/22/2023 08:54:12 15.6 11.5-15.5 (%) Final Platelets 05/22/2023 08:54:12 246 140-400 (K /uL) Final MPV 05/22/2023 08:54:12 9.6 6.6-11.1 ( fL) Final Performing Location [facility] [place] [address]
--- OUTSIDE RECORDS SUMMARY | 2023-07-22 02:21 | External Medical Summary | Summary of Care ---
Author Name Unknown Organization [facility] Address [address] [place] [address] Phone [phone] Care Team Providers Care Superintendent Fish Hatchery Name Role Phone Barrett Dacosta MD Primary Care Provider + Reason for Visit * Reason Onset Date Comments Appointment 05/29/2023 Encounter Details Date Type Department Care Team (Late st Contact Info) Description 05/29/2023 Telephone Vascular Surg [facility] [address] [place], [place] [phone] Services, Scheduling [address] [place] [address] Appointment Allergies No known active allergiesdocumented as [...] syndrome) 09/05/2022 Atrioventricular block, [facility] 1, [facility] 09/05/2022 1st degree AV [...] mRNA, LNP-s, No Pre serve, 2-Dose Series ([employer]) 02/20/2021,06/17/2020,05/26/2020 Covid-19, Mrna, Lnp-s, Pf, B ivalent, [...] Secretaries, We didn't place TDC (placed at [facility] by Dr. Miller); however, we are willing to remove. If they want us to remove, [place] [facility]. Can offer any day this week or 06/04 JACOBO Feliciano 05/29/2023 12:46 PM * Telephone Encounter - Danita Candelaria OSA - 05/29/2023 12:40 PM EDT Nurse from dialysis calling requesting removal of cath in either [facility] or [place]. Please call pt's on her mobile number [phone] Thank you LIAN Phillips documented in this encounter Plan of Treatment Upcoming Encounters Date Type Department Care Team (Late st Contact Info) Description 05/30/2023 11:45 AM EDT Hem/Onc Treatment Hematology/Oncology Treatment, [place] [address] [place] [phone] Ivory, Chair 8 Hem Onc Scenery [address] [place], [place] [address] 06/05/2023 8:40 AM EDT Laboratory [facility] [place] [place] [address] [place] [phone] Ivory, Lab Scenery [address] [place], [place] [address] 06/06/2023 8:00 AM EDT Office Visit Hematology/Oncology [facility] [place] [address] [place], [place] [phone] Maribel Broussard CRNP [address] [place] [address] 06/06/2023 8:30 AM EDT [facility] [address] [place], [place] [phone] Ivory, Chair 9 Hem Onc Scenery 200 [facility] [place], [place] [address] 06/22/2023 7:45 AM EDT Office Visit Hematology/Oncology [facility] [place] [address] [place], [place] [phone] Werner Roland MD [address] [place], [place] [address] 06/29/2023 8:00 AM EDT Office Visit [facility] [address] [place] [address] Barrett Dacosta MD [address] [place] [address] 01/23/2024 11:00 AM EST Telemedicine [facility] [place] [address] [place] [address] Earle Murphy MD [address] [place], [place] [phone] Scheduled Procedures Name Priority Associated Diagnoses Date/Ti [...] Documents on File Type Date Recorded Patient Radiation Control Health Physicist Expl anation POLST 03/23/2023 4:05 PM POLST [...] patient or by statute hierarchy) Care Teams Superintendent [employer]cher[employer] Relationship Specialty Start Date End Date Barrett Dacosta MD [address] [place] [address] PCP - General Family Medicine 04/11/18 documented as of this encounter
--- OUTSIDE RECORDS SUMMARY | 2023-07-22 02:21 | External Medical Summary ---
Author Name Unknown Address Unknown Organization [facility] [place] [address] Laboratory Report Ordering Provider Test Date Status KRISTINE SAWYER 05/29/2023 08:48:47 Final Observation Date Value Abnormality Reference (Units ) Status SYNC LEUKOCYTES IN BLOOD BY AUTOMATED COUNT 05/29/2023 08:48:47 1.51 Below low normal 4.00-10.80 (K/uL) Final Segs 05/29/2023 08:48:47 65.0 40.0-75.0 (%) Final Lymphs % 05/29/2023 08:48:47 20.5 18.0-42.0 (%) Final Monos 05/29/2023 08:48:47 10.6 1.0-11.0 (%) Final Eosinophils 05/29/2023 08:48:47 2.6 0.0-6.0 (%) Final Basos 05/29/2023 08:48:47 1.3 0.0-2.0 (%) Final Absolute Segs 05/29/2023 08:48:47 0.98 Below low normal 1.80-7.70 (K/uL) Final Lymphs, absolute 05/29/2023 08:48:47 0.31 Below low normal 1.00-4.80 (K/ul) Final Monos, Abs 05/29/2023 08:48:47 0.16 0.00-1.10 (K/uL) Final Eos, Abs 05/29/2023 08:48:47 0.04 0.00-0.70 (K/uL) Final Basos, Abs 05/29/2023 08:48:47 0.02 0.00-0.20 (K/uL) Final Performing Location [facility] [place] [address]
--- OUTSIDE RECORDS SUMMARY | 2023-07-22 02:21 | External Medical Summary ---
Author Name Unknown Address Unknown Organization [facility] [address] [place] [address] Laboratory Report Ordering Provider Test Date Status KRISTINE SAWYER 05/22/2023 08:54:12 Final Observation Date Value Abnormality Reference (Units ) Status BUN 05/22/2023 08:54:12 19 6-20 (mg/dL) Final Creatinine 05/22/2023 08:54:12 2.2 Above high normal 0.6-1.2 (mg/dL) Final Glomerular filtration rate/1.73 sq M.predicted [Volume Rate/Area] in Serum, Plasma or Blood by Creatinine-based formula (CKD-EPI) 05/22/2023 08:54:12 30 Below low normal >=60 (mL/min) Final eGFR is calculated based on the CKD-EPI 2020 equation SODIUM 05/22/2023 08:54:12 141 135-146 (m mol/L) Final Potassium 05/22/2023 08:54:12 3.9 3.5-5.1 (m mol/L) Final Cl 05/22/2023 08:54:12 98 98-107 (mm ol/L) Final CO2 05/22/2023 08:54:12 33 Above high normal 22 -32 (mmol/L) Final Anion gap 05/22/2023 08:54:12 10 7-15 (mmol /L) Final Glucose 05/22/2023 08:54:12 85 70-120 (mg /dL) Final Albumin 05/22/2023 08:54:12 3.7 Below low normal 3.8 -5.0 (g/dL) Final AST (Aspartate aminotransferase) 05/22/2023 08:54:12 20 10-50 (U/L) Fin al Alk Phos 05/22/2023 08:54:12 96 35-130 (U/ L) Final Bilirubin, Total 05/22/2023 08:54:12 0.4 <=1 .2 (mg/dL) Final Calcium 05/22/2023 08:54:12 9.7 8.4-10.2 ( mg/dL) Final Protein 05/22/2023 08:54:12 7.6 6.0-8.3 (g /dL) Final ALT (Alanine aminotransferase) 05/22/2023 08:54:12 6 Below low normal 10-50 (U/L) Final Performing Location [facility] [address] [place] [address]
--- OUTSIDE RECORDS SUMMARY | 2023-07-22 02:21 | External Medical Summary | Summary of Care ---
Author Name Unknown Organization [facility] Address [address] [place] [facility] [place] [address] Phone [phone] Care Team Providers Care Manager Paper Name Role Phone Barrett Dacosta MD Primary Care Provider + Reason for Visit * Reason Comments Chemotherapy [id number] Taxol/Carbo * Episode Based Medications (Routine) - Authorized Specialty Diagnoses / Procedures Referred By Contbrian t Referred To Contact Diagnoses Encounter for antineoplastic chemotherapy Esophageal adenocarcinoma (HCC) Procedures VT PALONOSETRON HCL VT CARBOPLATIN INJECTION VT PACLITAXEL INJECTION Werner Roland MD [address] [place] [address] [place] [address] Anc Hem/Onc [address] [place] [address] Referral ID Status Reason Start Date Expiration Date V isits Requested Visits Authorized [id number] Authorized 05/03/2023 05/03/[phone] Encounter Details Date Type Department Care Team (Latest Contact Info) Description 05/23/2023 8:30 AM EDT Hem/Onc Treatment Hematology/Oncolog y Treatment, [address] [place] [address] Iv[place], Chair 4 Hem Onc [address] [place] [address] Encounter for antineoplastic chemotherapy*; Esophageal adenocarcinoma (HCC) Allergies No known active allergiesdocumented as of this encounter (statuses as of 05/23/2023) Medications Medication Sig Dispensed Refills Start Date [...] as of this encounter (statuses as of 05/23/2023) Active Problems Problem Noted Date Diagnosed Date [...] + high grade dysplasia (? Cancer--sent to [facility] [place]esophagitis, martha 4 wk. CVA 05/26 [facility]. Left sided weakness. 05/26 TTE [facility] normal EF Grade 2 Farmer Dys. Moderate AV sclerosis and calcified mitral valve--stenosis + mod MR.mild MS. No shunt. 04/24 colon-polyp tubular adenoma. Declined f/u. 2012 adenoma. 08/18 TTE-possilbe vegetation. Mild LVH History of prostate cancer 01/09/2013 Overview: S/p resection Dr Whitehead [facility] HTN, goal below 140/90 06/04/2012 Gout 06/04/2012 Overview: 07/18 indomethicin non-form documented as of this encounter (statuses as of 05/23/2023) Resolved Problems Problem Noted Date Diagnosed Date [...] as of this encounter (statuses as of 05/23/2023) Immunizations Name Administration Dates Next Due COVID-19 mRNA, LNP-s, No Pre serve, 2-Dose Series ([employer]mar[employer].) 02/20/2021,06/17/2020,05/26/2020 Covid-19, Mrna, Lnp-s, Pf, B ivalent, [...] Pt remained free of injury during treatment todfay Patient tolerated treatment well and was discharged [...] Description 05/29/2023 9:20 AM EDT Laboratory Laboratory [facility] [place] [address] [place] [phone] Ivory, Lab [facility] [address] [place] [address] 05/30/2023 11:45 AM EDT Hem/Onc Treatment Hematology/Oncology Treatment, [place] [address] [place] [phone] Ivory, Chair 8 Hem Onc [address] [place] [address] 06/05/2023 8:40 AM EDT Laboratory Laboratory [facility] [place] [address] [place] [phone] Iv[place], Lab [facility] [address] [place] [address] 06/06/2023 8:00 AM EDT Office Visit Hematology/Oncology [facility] [address] [place] [address] Maribel Broussard CRNP [facility] [place] [address] 06/06/2023 8:30 AM EDT Hem/Onc Treatment Hematology/Oncology Treatment, [place] [address] [place] [phone] Ivory, Chair [address] [facility] [address] [facility] [place] [address] 06/22/2023 7:45 AM EDT Office Visit Hematology/Oncology [facility] [place] [address] [place] [phone] Werner Roland MD [address] [facility] [place] [address] 06/29/2023 8:00 AM EDT Office Visit Family Practice [facility] [address] [facility] [place] [address] Barrett Dacotsa MD [facility] [place] [address] 01/23/2024 11:00 AM EST Telemedicine [facility] [address] [place] [address] Earle Murphy MD [address] [place] [address] Scheduled Procedures Name Priority Associated Diagnoses Date/Ti [...] ONCE PRN Other, Hypersensitivity Reaction, Starting on Mon05/23/23 at 0837, Until Mon05/24/23 at 0836, For 24 hours EPINEPHrine 1 MG/ML inj 0.3 mg 0.3 mg, Intramuscular, ONCE PRN Other, Hypersensitivity Reaction or Anaphylaxis, Starting on Mon05/23/23 at 0837, Until Mon05/24/23 at 0836, For 24 hours hEParin 100 UNIT/ML Lock Flush inj 500 Units 500 Units (5 mL), IV Lock, PRN Other, IV Flush, Starting on Mon05/23/23 at 0837, Until Mon05/24/23 at 0836, For 24 hours, Do not flush if lock, PICC, or central line not in place; IV infusing or unable to flush. Hydrocortisone Sod Suc (PF) (Solu-Cortef) inj 100 mg 100 mg, IV Push, ONCE PRN Other, Hypersensitivity Reaction, Starting on Mon05/23/23 at 0837, Until Mon05/24/23 at 0836, For 24 hours LORAzepam (Ativan) tab 0.5 mg 0.5 mg, Oral, ONCE PRN Anxiety, Nausea, Starting on Mon05/23/23 at 0945, Until Discontinued NSS infusion Intravenous, at 50 mL/hr, PRN, Starting on Mon05/23/23 at 0945, Until Discontinued, Maintenance line Start Infusion 05/23/2023 8:45 AM EDT 50 mL/hr oxygen GAS Inhalation, OXYGEN, First dose on Mon05/23/23 at 0915, Until Discontinued, Device/Managed by: Low Flow Device, [...] Push, PRN Other, IV Flush, Starting on Mon05/23/23 at 0837, Until Mon05/24/23 at 0836, For 24 hours, Do not flush if [...] Given 05/23/2023 8:55 AM EDT 20 mg PACLitaxel (Taxol) 84 [...] at 0945, For 1 dose, Restricted per S antiemetic guidelines Given 05/23/2023 8:55 AM EDT 0.25 mg documented in this encounter Advance Directives Documents on File Type Date Recorded Patient Merchandise Buyer Expl anation POLST 03/23/2023 4:05 PM POLST (Brian ited DNR) Latest Code Status on File [...] patient or by statute hierarchy) Care Teams Manager Paper Relationship Specialty Start Date End Date Barrett Dacosta MD [address] [place] [address] PCP - General Family Medicine 04/11/18 documented as of this encounter
--- OUTSIDE RECORDS SUMMARY | 2023-07-22 02:21 | External Medical Summary ---
Author Name Unknown Address Unknown Organization [id number][facility] [place] [address] Laboratory Report Ordering Provider Test Date Status KRISTINE SAWYER 05/22/2023 08:54:12 Final Observation Date Value Abnormality Reference (Units ) Status Nucleated erythrocytes/100 leukocytes [Ratio] in Blood by Automated count 05/22/2023 08:54:12 Final Performing Location [facility] [place] [address]
--- OUTSIDE RECORDS SUMMARY | 2023-07-22 02:21 | External Medical Summary ---
Author Name Unknown Address Unknown Organization [id number] [address] [place] [address] Laboratory Report Ordering Provider Test Date Status KRISTINE SAWYER 05/29/2023 08:48:47 Final Observation Date Value Abnormality Reference (Units ) Status BUN 05/29/2023 08:48:47 16 6-20 (mg/dL) Final Creatinine 05/29/2023 08:48:47 2.1 Above high normal 0.6-1.2 (mg/dL) Final Glomerular filtration rate/1.73 sq M.predicted [Volume Rate/Area] in Serum, Plasma or Blood by Creatinine-based formula (CKD-EPI) 05/29/2023 08:48:47 32 Below low normal >=60 (mL/min) Final eGFR is calculated based on the CKD-EPI 2020 equation Sodium 05/29/2023 08:48:47 139 135-146 (m mol/L) Final Potassium 05/29/2023 08:48:47 3.7 3.5-5.1 (m mol/L) Final Cl 05/29/2023 08:48:47 96 Below low normal 98- 107 (mmol/L) Final CO2 05/29/2023 08:48:47 32 22-32 (mmo l/L) Final Anion gap 05/29/2023 08:48:47 11 7-15 (mmol /L) Final Glucose 05/29/2023 08:48:47 87 70-120 (mg /dL) Final Albumin 05/29/2023 08:48:47 3.8 3.8-5.0 (g /dL) Final AST (Aspartate aminotransferase) 05/29/2023 08:48:47 17 10-50 (U/L) Fin al Alk Phos 05/29/2023 08:48:47 101 35-130 (U/ L) Final Bilirubin, Total 05/29/2023 08:48:47 0.4 <=1 .2 (mg/dL) Final Calcium 05/29/2023 08:48:47 9.1 8.4-10.2 ( mg/dL) Final Protein 05/29/2023 08:48:47 7.5 6.0-8.3 (g /dL) Final ALT (Alanine aminotransferase) 05/29/2023 08:48:47 <5 Below low normal 10-50 (U/L) Final Performing Location [facility] [address] [place] [address]
--- OUTSIDE RECORDS SUMMARY | 2023-07-22 02:21 | External Medical Summary | Summary of Care ---
Author Name Unknown Organization [facility] Address [address] [facility] [address] Phone [phone] Care Team Providers Care Registered Public Surveyor Name Role Phone Barrett Dacosta MD Primary Care Provider + Encounter Details Date Type Department Care Team (Late st Contact Info) Description 05/29/2023 Telephone Hematology/Oncology [facility] [place] [address] [facility] [place] [address] Werner Roland MD 200 [place] [address] Allergies No known active allergiesdocumented as of this encounter (statuses as of 05/29/2023) Medications Medication Sig Dispensed Refills Start Date [...] as of this encounter (statuses as of 05/29/2023) Active Problems Problem Noted Date Diagnosed Date [...] artery 06/03/2022 Overview: 05/26 CTA [facility] Type 2 diabetes mellitus wit h chronic [...] + high grade dysplasia (? Cancer--sent [place] [facility] [place]esophagitis, martha 4 wk. CVA 05/26 [facility]. Left sided weakness. 05/26 TTE [facility] normal EF Grade 2 Farmer Dys. Moderate AV sclerosis and calcified mitral valve--stenosis + mod MR.mild MS. No shunt. 04/24 colon-polyp tubular adenoma. Declined f/u. 2012 adenoma. 08/18 TTE-possilbe vegetation. Mild LVH History of prostate cancer 01/09/2013 Overview: S/p resection Dr Whitehead [facility] HTN, goal below 140/90 06/04/2012 Gout 06/04/2012 Overview: 07/18 indomethicin non-form documented as of this encounter (statuses as of 05/29/2023) Resolved Problems Problem Noted Date Diagnosed Date [...] as of this encounter (statuses as of 05/29/2023) Immunizations Name Administration Dates Next Due COVID-19 mRNA, LNP-s, No Pre serve, 2-Dose Series ([employer]) 02/20/2021,06/17/2020,05/26/2020 Covid-19, Mrna, Lnp-s, Pf, B ivalent, [...] encounter Miscellaneous Notes * Telephone Encounter - Marito Calderon RN - 05/29/2023 4:29 PM EDT Pt ANC 0.98. TT sent to Dr. Roland to see if he would like patient to have treatment tomorrow. Per Dr. Roland- ok to proceed with treatment. documented in this encounter Plan of Treatment Upcoming Encounters Date Type Department Care Team (Late st Contact Info) Description 05/30/2023 11:45 AM EDT Hem/Onc Treatment Hematology/Oncology [address] [place] [address] Ivory, Chair 8 Hem Onc [address] [place] [address] 06/05/2023 8:40 AM EDT Laboratory Laboratory [facility] [place] 200 [facility] [place] [phone] Ivory, Lab [facility] 200 [facility] [place] [address] 06/06/2023 8:00 AM EDT Office Visit Hematology/Oncology [facility] [address] [place] [phone] Maribel Broussard CRNP [address] [place] [address] [place] [address] 06/06/2023 8:30 AM EDT Hem/Onc Treatment Hematology/Oncology [address], [address] [phone] [place], Chair 9 Hem Onc [facility] [address] [facility] [place] [address] 06/22/2023 7:45 AM EDT Office Visit Hematology/Oncology [facility] [place] [address] [place] [phone] Werner Roland MD [address] [place] [address] 06/29/2023 8:00 AM EDT Office Visit Family [facility] [address] [place] [address] Barrett Dacosta MD [address] [place] [address] 01/23/2024 11:00 AM EST Telemedicine [facility] [address] [place] [address] Earle Murphy MD [address] [place] [address] Scheduled Procedures Name Priority Associated Diagnoses Date/Ti [...] Documents on File Type Date Recorded 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
--- OUTSIDE RECORDS SUMMARY | 2023-07-22 02:21 | External Medical Summary | Summary of Care ---
Author Name Unknown Organization [facility] Address [address] [place] [address] Phone [phone] Care Team Providers Care Beveler Name Role Phone Barrett Dacosta MD Primary Care Provider + Reason for Visit * Reason Onset Date Comments Appointment 05/29/2023 Encounter Details Date Type Department Care Team (Late st Contact Info) Description 05/29/2023 Telephone Vascular Surg [facility] [address] [place], [place] [phone] Services, Scheduling [address] [place] [address] Appointment Allergies No known active allergiesdocumented as [...] syndrome) 09/05/2022 At[facility]ent[facility] block, [facility], [facility] 09/05/2022 1st degree AV block 09/05/2022 Anemia due to chronic kidney disease, on chronic dialysis 06/03/2022 Aneurysm of left vertebral artery 06/03/2022 Overview: 05/26 CTA [facility] Type 2 diabetes mellitus wit [...] + high grade dysplasia (? Cancer--sent to [facility] for review)/esophagitis, martha 4 wk. CVA 05/26 [facility]. Left sided weakness. 05/26 TTE [facility] normal EF Grade 2 Farmer [...] mRNA, LNP-s, No Pre serve, 2-Dose Series ([employer]) 02/20/2021,06/17/2020,05/26/2020 Covid-19, Mrna, Lnp-s, Pf, B ivalent, [...] Secretaries, We didn't place TDC (placed at [facility] by Dr. Miller); however, we are willing to remove. If they want us to remove, [place] [facility]. Can offer any day this week or 06/04 JACOBO Feliciano 05/29/2023 12:46 PM * Telephone Encounter - Danita Candelaria OSA - 05/29/2023 12:40 PM EDT Nurse from dialysis calling requesting removal of cath in either [facility] or [facility]. Please call pt's on her mobile number [phone] Thank you LIAN Phillips documented in this encounter Plan of Treatment Upcoming Encounters Date Type Department Care Team (Late st Contact Info) Description 05/30/2023 11:45 AM EDT Hem/Onc Treatment Hematology/Oncology Treatment, [place] [address] [place] [address] Ivory, Chair 8 Hem Onc [address] [place] [address] 06/05/2023 8:40 AM EDT Laboratory Laboratory [place] [place] [facility] Dodson [address] [place] [address] Ivory Lab Scenery [address] [place] [address] [address] 06/06/2023 8:00 AM EDT Office Visit Hematology/Oncology [facility] 200 [facility] [place] [phone] Maribel Broussard CRNP 400 [facility] [place] [address] 06/06/2023 8:30 AM EDT [facility] [address] [facility] [place], [place] [phone] Ivory, Chair 9 Hem Onc [address] [place] [address] 06/22/2023 7:45 AM EDT Office Visit Hematology/Oncology [facility] 200 [facility] [place] [address] Werner Roland MD 200 [facility] [place] [address] 06/29/2023 8:00 AM EDT Office Visit Family Practice [facility] 132 [place] [address] Barrett Dacosta MD [address] [place] [address] 01/23/2024 11:00 AM EST Telemedicine [facility] [place] [address] [place] [address] Earle Murphy MD [address] [place], [place] [phone] Scheduled Procedures Name Priority Associated Diagnoses Date/Ti [...] Documents on File Type Date Recorded Patient Bartender Server Expl anation POLST 03/23/2023 4:05 PM POLST [...] patient or by statute hierarchy) Care Teams Beveler Relationship Specialty Start Date End Date Barrett Dacosta MD [address] [place] [address] PCP - General Family Medicine 04/11/18 documented as of this encounter
--- OUTSIDE RECORDS SUMMARY | 2023-07-22 02:21 | External Medical Summary ---
Author Name Unknown Address Unknown Organization K09:[facility] [place] [address] Laboratory Report Ordering Provider Test Date Status KRISTINE SAWYER 05/29/2023 08:48:47 Final Observation Date Value Abnormality Reference (Units ) Status Nucleated erythrocytes/100 leukocytes [Ratio] in Blood by Automated count 05/29/2023 08:48:47 Final Acanthocytes [Presence] in Blood by Light microscopy 05/29/2023 08:48:47 Moderate Abnormal None Seen Final Polychromasia [Presence] in Blood by Light microscopy 05/29/2023 08:48:47 Moderate Abnormal None Seen Final Target cells [Presence] in Blood by Light microscopy 05/29/2023 08:48:47 Moderate Abnormal None Seen Final Performing Location [facility] [place] [address]
--- OUTSIDE RECORDS SUMMARY | 2023-07-22 02:21 | External Medical Summary ---
Author Name Unknown Address Unknown Organization K09:[facility] [place] [address] Laboratory Report Ordering Provider Test Date Status KRISTINE SAWYER 05/29/2023 08:48:47 Final Observation Date Value Abnormality Reference (Units ) Status WBC, Total 05/29/2023 08:48:47 1.51 Below low normal 4. 00-10.80 (K/uL) Final RBC 05/29/2023 08:48:47 3.16 4.50-5.25 (M/uL) Final Hemoglobin 05/29/2023 08:48:47 9.6 Below low normal 14 .0-16.8 (g/dL) Final HCT 05/29/2023 08:48:47 30.9 Below low normal 40. 0-48.4 (%) Final MCV 05/29/2023 08:48:47 97.8 82.0-99.5 (fL) Final MCH 05/29/2023 08:48:47 30.4 27.0-34.0 (pg) Final MCHC 05/29/2023 08:48:47 31.1 32.0-36.0 (g/dL) Final RDW 05/29/2023 08:48:47 15.7 11.5-15.5 (%) Final Platelets 05/29/2023 08:48:47 227 140-400 (K /uL) Final MPV 05/29/2023 08:48:47 8.7 6.6-11.1 ( fL) Final Performing Location [facility] [place] [address]
--- OUTSIDE RECORDS SUMMARY | 2023-07-22 02:21 | External Medical Summary | Summary of Care ---
Author Name Unknown Organization [facility] Address [address] [facility] [place] [address] Phone [phone] Care Team Providers Care Medical Office Technology Instructor Name Role Phone Barrett Dacosta MD Primary Care Provider + Reason for Visit * Reason Comments Outpatient Testing Encounter Details Date Type Department Care Team (Late st Contact Info) Description 05/29/2023 9:40 AM EDT Laboratory Laboratory [facility] [place] [address] [place] [phone] [facility] Lab Scenery [address] [facility] [place] [address] Esophageal adenocarcinoma (HCC) Allergies No known active [...] syndrome) 09/05/2022 Atrioventricular block, Mobitz type 1, [facility] 09/05/2022 1st degree AV [...] + high grade dysplasia (? Cancer--[facility] [place] [facility] [place]esophagitis, martha 4 wk. CVA 05/26 [...] mRNA, LNP-s, No Pre serve, 2-Dose Series ([employer]) 02/20/2021,06/17/2020,05/26/2020 Covid-19, Mrna, Lnp-s, Pf, B ivalent, [...] Description 05/29/2023 9:20 AM EDT Laboratory Laboratory [facility] [place] [address] [place] [phone] Iv[place] Lab [facility] [address] [place] [address] [place] [address] 05/30/2023 11:45 AM EDT Hem/Onc Treatment Hematology/Oncology Treatment [address] [place] [address] Ivory, Chair 8 Hem Onc [facility] [address] [place] [address] [address] 06/05/2023 8:40 AM EDT Laboratory Laboratory [facility] Ivory [place] [address] [place] [phone] Ivory Lab Scenery [address] [place] [address] [address] 06/06/2023 8:00 AM EDT Office Visit Hematology/Oncology [facility] [place] [address] [place] [phone] Maribel Broussard CRNP [address] [place] [address] [place] [id number] 06/06/2023 8:30 AM EDT Hem/Onc Treatment Hematology/Oncology Treatment [place] 200 [facility] [place] [phone] Ivory, Chair 9 Hem Onc [address] [place] [address] 06/22/2023 7:45 AM EDT Office Visit Hematology/Oncology [facility] 200 [facility] [place], [place] [phone] Werner Roland MD 200 [facility] [place], [place] [address] 06/29/2023 8:00 AM EDT Office Visit Family Practice [facility] [address] [facility] [place] [address] Barrett Dacosta MD [address] [facility] [place] [address] 01/23/2024 11:00 AM EST [facility] [address] [place] [address] Earle Murphy MD [address] [place] [address] Pending Results Name Type Priority Associated Diagnoses Date /Time CBC WITH WBC DIFFERENTIAL Lab STAT Esophageal adenocarcinoma (HCC) 05/29/2023 8:48 AM EDT COMPREHENSIVE METABOLIC PANEL Lab STAT Esophageal adenocarcinoma (HCC) 05/29/2023 8:48 AM EDT CBC Lab STAT Esophageal adenocarcinoma (HCC) 05/29/2023 8:48 AM EDT DIFFERENTIAL, AUTOMATED Lab STAT Esophageal adenocarcinoma (HCC) 05/29/2023 8:48 AM EDT Scheduled Procedures Name Priority Associated [...] Documents on File Type Date Recorded Patient Field Account Manager Expl anation POLST 03/23/2023 4:05 PM [...] patient or by statute hierarchy) Care Teams Medical Office Technology Instructor Relationship Specialty Start Date End Date Barrett Dacosta MD [address] [place] [address] PCP - General Family Medicine 04/11/18 documented as of this encounter
--- OUTSIDE RECORDS SUMMARY | 2023-07-22 02:21 | External Medical Summary ---
Author Name Unknown Address Unknown Organization K09:[facility] [place] [address] Laboratory Report Ordering Provider Test Date Status KRISTINE SAWYER 05/22/2023 08:54:12 Final Observation Date Value Abnormality Reference (Units ) Status SYNC LEUKOCYTES IN BLOOD BY AUTOMATED COUNT 05/22/2023 08:54:12 2.32 Below low normal 4.00-10.80 (K/uL) Final Segs 05/22/2023 08:54:12 64.2 40.0-75.0 (%) Final Lymphs % 05/22/2023 08:54:12 20.7 18.0-42.0 (%) Final Monos 05/22/2023 08:54:12 9.1 1.0-11.0 (%) Final Eosinophils 05/22/2023 08:54:12 4.7 0.0-6.0 (%) Final Basos 05/22/2023 08:54:12 1.3 0.0-2.0 (%) Final Absolute Segs 05/22/2023 08:54:12 1.49 Below low normal 1.80-7.70 (K/uL) Final Lymphs, absolute 05/22/2023 08:54:12 0.48 Below low normal 1.00-4.80 (K/ul) Final Monos, Abs 05/22/2023 08:54:12 0.21 0.00-1.10 (K/uL) Final Eos, Abs 05/22/2023 08:54:12 0.11 0.00-0.70 (K/uL) Final Basos, Abs 05/22/2023 08:54:12 0.03 0.00-0.20 (K/uL) Final Performing Location [facility] [place] [address]
--- OUTSIDE RECORDS SUMMARY | 2023-07-22 02:21 | External Medical Summary | Summary of Care ---
Author Name Unknown Organization [facility] Address [address] [place] [address] Phone [phone] Care Team Providers Care Hospitality Job Titles Name Role Phone Barrett Dacosta MD Primary Care Provider + Reason for Visit * Reason Onset Date Comments Appointment 05/29/2023 Encounter Details Date Type Department Care Team (Late st Contact Info) Description 05/29/2023 Telephone Vascular Surg [facility] [address] [place], [place] [phone] Services, Scheduling [address] [place] [address] Appointment Allergies No known active allergiesdocumented as [...] 09/05/2022 Atrioventricular block, [facility]itz [facility] 1, [facility] 09/05/2022 1st degree AV block 09/05/2022 Anemia due to chronic kidney disease, on chronic dialysis 06/03/2022 Aneurysm of left vertebral artery 06/03/2022 Overview: 05/26 CTA [facility] Type 2 diabetes mellitus wit h [...] + high grade dysplasia (? Cancer--sent to [facility] for review)/esophagitis, martha 4 wk. CVA 05/26 [facility]. Left sided weakness. 05/26 TTE [facility] normal EF Grade 2 Farmer Dys. [...] mRNA, LNP-s, No Pre serve, 2-Dose Series ([employer]) 02/20/2021,06/17/2020,05/26/2020 Covid-19, Mrna, Lnp-s, Pf, B [...] Secretaries, We didn't place TDC (placed at [facility] by Dr. Miller); however, we are willing to remove. If they want us to remove, needs to be done at [facility]. Can offer any day this week or 06/04 JACOBO Feliciano 05/29/2023 12:46 PM * Telephone Encounter - Danita Candelaria OSA - 05/29/2023 12:40 PM EDT Nurse from dialysis calling requesting removal of cath in either [facility] or [place]. Please call pt's on her mobile number [phone] Thank you LIAN Phillips documented in this encounter Plan of Treatment Upcoming Encounters Date Type Department Care Team (Late st Contact Info) Description 05/30/2023 11:45 AM EDT Hem/Onc Treatment Hematology/Oncology Treatment, [place] [address] [place] [address] [place], Chair 8 Hem Onc Scenery [address] [place] [address] 06/05/2023 8:40 AM EDT Laboratory Laboratory [place] Leonarda Dodson [address] [place] [address] [address] [place] Lab Scenery [address] [place] [address] [address] 06/06/2023 8:00 AM EDT Office Visit Hematology/Oncology [facility] 200 [facility] [place] [phone] Maribel Broussard CRNP [address] [facility] [place] [address] 06/06/2023 8:30 AM EDT [facility] [address] [facility] [place], [place] [phone] Iv[place], Chair 9 Hem Onc [address] [place] [address] 06/22/2023 7:45 AM EDT Office Visit Hematology/Oncology [facility] 200 [facility] [place] [address] Werner Roland MD 200 [facility] [place] [address] 06/29/2023 8:00 AM EDT Office Visit Family Practice [facility] [address] [place] [address] Barrett Dacosta MD [address] [place] [address] 01/23/2024 11:00 AM EST Telemedicine [facility] [place] [address] [place] [address] Earle Murphy MD [address] [place], [place] [phone] Scheduled Procedures Name Priority Associated Diagnoses Date/Ti [...] Documents on File Type Date Recorded Patient Diaphragm Builder Expl anation POLST 03/23/2023 4:05 PM POLST [...] patient or by statute hierarchy) Care Teams Hospitality Job Titles Relationship Specialty Start Date End Date Barrett Dacosta MD [address] [place] [address] PCP - General Family Medicine 04/11/18 documented as of this encounter
--- OUTSIDE RECORDS SUMMARY | 2023-07-22 02:21 | External Medical Summary | Summary of Care ---
Author Name Unknown Organization [facility] Address [address] [facility] [place] [address] Phone [phone] Care Team Providers Care Supervisor Microfilm Duplicating Unit Name Role Phone Barrett Dacosta MD Primary Care Provider + Reason for Visit * Reason Comments Outpatient Testing Encounter Details Date Type Department Care Team (Late st Contact Info) Description 05/22/2023 8:50 AM EDT Laboratory Laboratory [facility] [place] [address] [place] [phone] [facility] Lab Scenery [address] [facility] [place] [address] Esophageal adenocarcinoma (HCC) Allergies No known active allergiesdocumented as of this encounter (statuses as of 05/22/2023) Medications Medication Sig Dispensed Refills Start Date [...] as of this encounter (statuses as of 05/22/2023) Active Problems Problem Noted Date Diagnosed Date [...] 09/05/2022 Atrioventricular block, Mobitz type 1, [facility] 09/05/2022 1st degree AV block 09/05/2022 Anemia due to chronic kidney disease, on chronic dialysis 06/03/2022 Aneurysm of left vertebral artery 06/03/2022 Overview: 05/26 [facility] Type 2 diabetes mellitus wit h chronic [...] + high grade dysplasia (? Cancer--sent to [facility] for review)/esophagitis, martha 4 wk. CVA 05/26 [facility]. Left sided weakness. 05/26 TTE [facility] normal EF Grade 2 Farmer Dys. Moderate AV sclerosis and calcified mitral valve--stenosis + mod MR.mild MS. No shunt. 04/24 colon-polyp tubular adenoma. Declined f/u. 2012 adenoma. 08/18 TTE-possilbe vegetation. Mild LVH History of prostate cancer 01/09/2013 Overview: S/p resection Dr Whitehead [facility] HTN, goal below 140/90 06/04/2012 Gout 06/04/2012 Overview: 07/18 indomethicin non-form documented as of this encounter (statuses as of 05/22/2023) Resolved Problems Problem Noted Date Diagnosed Date [...] as of this encounter (statuses as of 05/22/2023) Immunizations Name Administration Dates Next Due COVID-19 mRNA, LNP-s, No Pre serve, 2-Dose Series ([employer]) 02/20/2021,06/17/2020,05/26/2020 Covid-19, Mrna, Lnp-s, Pf, B ivalent, [...] 05/23/2023 8:00 AM EDT Office Visit Hematology/Oncology [facility] [place] [address] [place] [phone] Maribel Broussard CRNP 400 [facility] [place] [address] 05/23/2023 8:30 AM EDT Hem/Onc Treatment Hematology/Oncology Treatment, [place] [facility] [phone] Iv[place], Chair 4 Hem Onc Scenery [address] [place] [address] 05/29/2023 9:20 AM EDT Laboratory Laboratory [facility] [place] [address] [place] [address] [address] Iv[place] Lab Scenery [address] [facility] [place] [address] 05/30/2023 11:45 AM EDT Hem/Onc Treatment Hematology/Oncology Treatment, [place] [facility] [phone] Iv[place], Chair 8 Hem Onc Scenery [address] [place] [address] [address] 06/05/2023 8:40 AM EDT Laboratory Laboratory [facility] [place] [address] [place] [address] [phone] [place], Lab Scenery [address] [place] [address] 06/06/2023 11:45 AM EDT Hem/Onc Treatment Hematology/Oncology Treatment, [place] [address] [place] [phone] Ivory, Chair 8 Hem Onc Scenery [address] [place], [place] [address] 06/29/2023 8:00 AM EDT Office Visit Family Practice [facility] [address] [place] [address] Barrett Dacosta MD [address] [place] [address] 01/23/2024 11:00 AM EST Telemedicine [facility] [address] [place] [address] Earle Murphy MD [address] [place], [place] [phone] Pending Results Name Type Priority Associated Diagnoses Date /Time CBC WITH WBC DIFFERENTIAL Lab STAT Esophageal adenocarcinoma (HCC) 05/22/2023 8:54 AM EDT COMPREHENSIVE METABOLIC PANEL Lab STAT Esophageal adenocarcinoma (HCC) 05/22/2023 8:54 AM EDT CBC Lab STAT Esophageal adenocarcinoma (HCC) 05/22/2023 8:54 AM EDT DIFFERENTIAL, AUTOMATED Lab STAT Esophageal adenocarcinoma (HCC) 05/22/2023 8:54 AM EDT Scheduled Procedures Name Priority [...] Documents on File Type Date Recorded Patient Trimmer Sorter Expl anation POLST 03/23/2023 4:05 PM POLST [...] patient or by statute hierarchy) Care Teams Supervisor Microfilm Duplicating Unit Relationship Specialty Start Date End Date Barrett Dacosta MD [address] [place] [address] PCP - General Family Medicine 04/11/18 documented as of this encounter
--- OUTSIDE RECORDS SUMMARY | 2023-07-22 02:22 | External Medical Summary ---
Author Name Unknown Address Unknown Organization K09:[facility] [place] [address] Laboratory Report Ordering Provider Test Date Status KRISTINE SAWYER 05/15/2023 10:33:29 Final Observation Date Value Abnormality Reference (Units ) Status WBC, Total 05/15/2023 10:33:29 5.56 4.00-10.8 0 (K/uL) Final RBC 05/15/2023 10:33:29 3.43 4.50-5.25 (M/uL) Final Hemoglobin 05/15/2023 10:33:29 10.5 Below low normal 14 .0-16.8 (g/dL) Final HCT 05/15/2023 10:33:29 33.6 Below low normal 40. 0-48.4 (%) Final MCV 05/15/2023 10:33:29 98.0 82.0-99.5 (fL) Final MCH 05/15/2023 10:33:29 30.6 27.0-34.0 (pg) Final MCHC 05/15/2023 10:33:29 31.3 32.0-36.0 (g/dL) Final RDW 05/15/2023 10:33:29 15.8 11.5-15.5 (%) Final Platelets 05/15/2023 10:33:29 292 140-400 (K /uL) Final MPV 05/15/2023 10:33:29 9.6 6.6-11.1 ( fL) Final Performing Location [facility] [place] [address]
--- OUTSIDE RECORDS SUMMARY | 2023-07-22 02:22 | External Medical Summary | Summary of Care ---
Author Name Unknown Organization [facility] Address [address] [facility] [place] [address] Phone [phone] Care Team Providers Care Television Script Writer Name Role Phone Barrett Dacosta MD Primary Care Provider + Reason for Visit * Reason Onset Date Comments Advice 05/15/2023 Encounter Details Date Type Department Care Team (Late st Contact Info) Description 05/15/2023 Telephone Family Practice [facility] [address] [place] [phone] Barrett Dacosta MD [address] [place] [address] Advice Allergies No known active allergiesdocumented as of this encounter (statuses as of 05/15/2023) Medications Medication Sig Dispensed Refills Start Date [...] Pain, Moderate. 120 Tablet 0 05/15/2023 Active oxyCODONE HCl 5 MG Oral Tablet (Oxy IR)Indications:Malig nant neoplasm of esophagus, unspecified location (HCC),Status post lumbar spinal fusion Take 1 Tablet by mouth every 4 hours as needed for Pain, Moderate or Pain, Severe. 120 Tablet 0 05/03/2023 4 Discontinue d(Medicatio n/Dose Changed) documented as of this encounter (statuses as of 05/15/2023) Active Problems Problem Noted Date Diagnosed Date [...] vertebral artery 06/03/2022 Overview: 05/26 CTA [facility] Type 2 diabetes mellitus wit h chronic [...] wk. CVA 05/26 [facility]. Left sided weakness. 05/26 TTE [facility] normal EF Grade 2 Farmer Dys. Moderate AV sclerosis and calcified mitral valve--stenosis + mod MR.mild MS. No shunt. 04/24 colon-polyp tubular adenoma. Declined f/u. 2012 adenoma. 08/18 TTE-possilbe vegetation. Mild LVH History of prostate cancer 01/09/2013 Overview: S/p resection Dr Whitehead [facility] HTN, goal below 140/90 06/04/2012 Gout 06/04/2012 Overview: 07/18 indomethicin non-form documented as of this encounter (statuses as of 05/15/2023) Resolved Problems Problem Noted Date Diagnosed Date [...] as of this encounter (statuses as of 05/15/2023) Immunizations Name Administration Dates Next Due COVID-19 [...] encounter Miscellaneous Notes * Telephone Encounter - Josette Hsu RN - 05/15/2023 3:21 PM EDT Patient returned call, he is appreciative and will let CM know if increased dose is not effective. Awaiting tomorrow health determination for walker. Call to [facility] pharmacy, no auth needed for 10mg oxycodone, per Deven in the pharmacy. * Telephone Encounter - Josette Hsu RN - 05/15/2023 3:17 PM EDT Attempted to call patient, no answer. No VM set up. * Telephone Encounter - Barrett Dacosta MD - 05/15/2023 2:13 PM EDT DME signed. Will inc oxycodone to 10mg D6z--ludr encourage to take to try to stay ahead of pain. Watch for constipation. Nursing-please do prior auth, thank you * Telephone Encounter - Josette Hsu RN - 05/15/2023 1:27 PM EDT Patient called in to provide update and ask for advice. He has started chemo and radiation last week. He is having increased difficulties with swallowing since radiation. Was given manuka honey and aloe juice to try from oncology. He is trying to drink protein drinks. He is asking if there is anything stronger her can try for left leg pain. He is exercising and slowly working on using steps since leg surgery, but he is finding that 5mg Oxycodone is not cutting thepain. He has even tried 2 and tries to use very sparingly. Also asking for a new walker "with only the two wheels in the front" as his is "very old" he uses the wheeled rollator while outside of the home, but was told by ortho provider to use standard walkerwhile in the home. Dr. Dacosta, Please advise on pain medication? (Order also placed for walker) Thank you documented in this encounter Plan of Treatment Upcoming Encounters Date Type Department Care Team (Late st Contact Info) Description 05/16/2023 11:45 AM EDT Hem/Onc Treatment Hematology/[address]cology [address] [phone] [place], Chair 2 Hem On[address] [place] [address] 05/22/2023 8:50 AM EDT Laboratory Laboratory [facility] [address] [place] [phone] [place], Lab [address] [place] [address] 05/23/2023 8:00 AM EDT Office Visit Hematology/Oncology [address] [place] [phone] Maribel Broussard CRNP [address] [place], [place] [address] [address] 05/23/2023 8:30 AM EDT Hem/Onc Treatment Hematology/Oncology Treatment, [place] [address] [place] [address] Iv[place], Chair 4 Hem Onc Scenery [address] [place] [address] 05/29/2023 9:20 AM EDT Laboratory Laboratory [facility] [place] [address] [place], [place] [address] Iv[place], Lab Scenery [address] [place] [address] 05/30/2023 11:45 AM EDT Hem/Onc Treatment Hematology/Oncology Treatment, [place] [address] [facility], [place] [address] Iv[place], Chair 8 Hem Onc Scenery [address] [place], [place] [address] 06/05/2023 8:40 AM EDT Laboratory Laboratory [facility] [place] [address] [place], [place] [address] Iv[place], Lab Scenery [address] [place] [address] 06/06/2023 11:45 AM EDT Hem/Onc Treatment Hematology/Oncology Treatment, [place] [address] [facility], [place] [phone] Iv[place], Chair 8 Hem Onc Scenery [address] [place] [address] 06/29/2023 8:00 AM EDT Office Visit Family [facility] [address] [place] [address] Barrett Dacosta MD [address] [place] [address] 01/23/2024 11:00 AM [facility] [address] [place] [address] Earle Murphy MD [address] [place] [address] Scheduled Procedures Name Priority Associated Diagnoses Date/Ti [...] Primary Malignant neoplasm of esophagus, unspecified site S/p left hip fracture documented in this encounter Advance Directives Documents on File Type Date Recorded Patient Trimming Cutter Expl anation POLST 03/23/2023 4:05 PM [...] patient or by statute hierarchy) Care Teams Television Script Writer Relationship Specialty Start Date End Date Barrett Dacosta MD [address] [place] [address] PCP - General Family Medicine 04/11/18 documented as of this encounter
--- OUTSIDE RECORDS SUMMARY | 2023-07-22 02:22 | External Medical Summary | Continuity of Care Document ---
Author Name Unknown Organization [id number] Address [address] [place] [id number] Care Team Providers Care Senior Executive Compensation Analyst Name Role Phone Barrett Dacosta Primary Care Physician [phone] Encounter [facility] [id number] Date(s): 05/08/23 - 05/08/23 [facility] [address] [place] [id number] [facility] [address] [place] [address] Encounter Diagnosis Fracture of left hip due to osteoporosis(Discharge Diagnosis) - 05/08/23 Discharge Disposition: Home or Self Care Attending Physician: MD Jerald, Barrett Holm Allergies, Adverse Reactions, Alerts No Known Medication [...] Start Date: 12/20/22 Status: Ordered Mental Status 05/08/23 Barriers to Learning one year None evide nt Mandatory Health Literacy Documentation Yes Health Literacy Communication Barriers N ever Primary Language Czech Problem List Condition Confirmation Course Effective Dates Status H ealth Status Informant Fracture of left hip due to osteoporosis Confirmed Active S/P hip hemiarthroplasty Confirmed Active Diagnosis Diagnosis Type Effective Dates Health Status Clinical Service Informant Fracture of left hip due to osteoporosis Discharge Diagnosis 05/08/23 Social History Social History Type Response Smoking Status Never smoked cigaret shahid Sex Male Ortho Outpt Note * Betzaida Serrano: PERFORM, MODIFY Event Display: Ortho Outpt Note Authored Date: [id number] Name:GUILLERMO ALEJANDRO Patient Number:[id number] :1945 Date of Service:05/08/2023 CHIEF COMPLAINT: Follow-up s/p left hip fracture ORIF with a trochanteric nail; DOS: 03/28/2023 HPI: [id number] [facility] today forfollow-up s/p the above notedprocedure. Patient reports within the last 2 days he has had marked improvement and has started working on steps. He complains of general irritation and discomfort around the incision site. He is making sure he has a diet high in calcium. He is awaiting treatment for his esophagus. PHYSICAL EXAM: Focus on the left lower extremity: Femoral and sciatic nerve function intact. Incision are healed Hip ROM: Flexion to 110 / Internal rotation 25 /External [id number] No pain with movement DIAGNOSTIC REVIEW: I obtained and personally interpreted 3 viewsof the pelvis/left hip which shows a well-fixed intertrochanteric nail with hip fracture with good healing and progression. Positive callus formation IMPRESSION: 6 weeks s/p left hip fracture ORIF with trochanteric nail w/ history of osteoporosis PLAN: Continue with HEP and strengthening Use ambulatory devices for balance Continue with high calcium diet Follow-up in 2 months with x-rays ATTESTATION: Betzaida Godinez, scribing for and in the presence of, Jaleel Giles, on this date,05/08/2023 14:18:49. Electronic Signature on File Electronically Reviewed/Signed by: Betzaida Serrano Author Signature Dt/Tm:05/08/2023 02:34 PM Electronically Reviewed/Signed by: Jaleel Giles MD Cosigner Signature Dt/Tm: 05/08/2023 02:48 PM Director [place] for Clinical Affairs, [facility] Petra Professor in Orthopaedics Rotary Furnace Operator, [facility] Medicine Patient Care team information Care Team Personnel Name: MD Dacosta Paul R Position: Referring DIRECT Member Role: Primary Care Provider Address: Address: [address] [place] [address]
--- OUTSIDE RECORDS SUMMARY | 2023-07-22 02:22 | External Medical Summary | Summary of Care ---
Author Name Unknown Organization [facility] Address [address] [place] [facility] [place] [place] [address] Phone [phone] Care Team Providers Care Vocal Performer Name Role Phone Barrett Dacosta MD Primary Care Provider + Reason for Visit * Reason Comments Chemotherapy C1D8 Taxol/Carbo * Episode Based Medications (Routine) - Authorized Specialty Diagnoses / Procedures Referred By Contbrian t Referred To Contact Diagnoses Encounter for antineoplastic chemotherapy Esophageal adenocarcinoma (HCC) Procedures RI PALONOSETRON HCL RI CARBOPLATIN INJECTION RI PACLITAXEL INJECTION Werner Roland MD [address] [place] [address] [place] [address] Anc Hem/Onc [address] [place] [address] Referral ID Status Reason Start Date Expiration Date V isits Requested Visits Authorized [id number] Authorized 05/03/2023 05/03/[phone] Encounter Details Date Type Department Care Team (Latest Contact Info) Description 05/16/2023 11:45 AM EDT Hem/Onc Treatment Hematology/Oncolog y Treatment, [address] [place] [address] Ivory, Chair 2 Hem Onc [address] [place] [address] Encounter for antineoplastic chemotherapy*; Esophageal adenocarcinoma (HCC) Allergies No known active allergiesdocumented as of this encounter (statuses as of 05/16/2023) Medications Medication Sig Dispensed Refills Start Date [...] as of this encounter (statuses as of 05/16/2023) Active Problems Problem Noted Date Diagnosed Date [...] left vertebral artery 06/03/2022 Overview: 05/26 [facility] Type 2 diabetes mellitus wit [...] + high grade dysplasia (? Cancer[place] [facility] [place]esophagitis, martha 4 wk. [...] as of this encounter (statuses as of 05/16/2023) Resolved Problems Problem Noted Date Diagnosed Date [...] as of this encounter (statuses as of 05/16/2023) Immunizations Name Administration Dates Next Due COVID-19 mRNA, LNP-s, No Pre serve, 2-Dose Series ([employer]) 02/20/2021,06/17/2020,05/26/2020 Covid-19, Mrna, Lnp-s, Pf, B ivalent, [...] Description 05/22/2023 8:50 AM EDT Laboratory Laboratory [facility] [place] [address] [place], [place] [address] Ivory, Lab Scenery [address] [facility] [place], [place] [address] 05/23/2023 8:00 AM EDT Office Visit Hematology/Oncology Dom[place] Ivory [place] [address] [place], [place] [address] Maribel Broussard CRNP [address] [facility] [place] [address] 05/23/2023 8:30 AM EDT Hem/Onc Treatment Hematology/Oncology Treatment, [address], [place] [address] Ivory, Chair 4 Hem Onc Scenery [address] [place], [place] [address] 05/29/2023 9:20 AM EDT Laboratory Laboratory [place] Iv[place] [address] [place], [place] [address] Ivory, Lab Scenery [address] [facility] [place], [place] [address] 05/30/2023 11:45 AM EDT Hem/Onc Treatment Hematology/Oncology Treatment, [address], [place] [address] Ivory, Chair 8 Hem Onc Scenery [address] [place] [address] 06/05/2023 8:40 AM EDT Laboratory Laboratory [facility] Ivory [place] [address] [place], [place] [address] Ivory, Lab Scenery [address] [facility] [place], [place] [address] 06/06/2023 11:45 AM EDT Hem/Onc Treatment Hematology/Oncology Treatment, [address] [place] [address] [place], Chair 8 Hem Onc Scenery [address] [place] [address] 06/29/2023 8:00 AM EDT Office Visit Family [facility] [address] [place] [address] Barrett Dacosta MD [address] [place] [address] 01/23/2024 11:00 AM EST Telemedicine Neurosurgery, [place] [address] [place] [address] Earle Murphy MD [address] [place] [address] Scheduled Procedures Name Priority Associated Diagnoses Date/Ti [...] ONCE PRN Other, Hypersensitivity Reaction, Starting on Mon05/16/23 at 1213, Until Mon05/17/23 at 1212, For 24 hours EPINEPHrine 1 MG/ML inj 0.3 mg 0.3 mg, Intramuscular, ONCE PRN Other, Hypersensitivity Reaction or Anaphylaxis, Starting on Mon05/16/23 at 1213, Until Mon05/17/23 at 1212, For 24 hours hEParin 100 UNIT/ML Lock Flush inj 500 Units 500 Units (5 mL), IV Lock, PRN Other, IV Flush, Starting on Mon05/16/23 at 1213, Until Mon05/17/23 at 1212, For 24 hours, Do not flush if lock, PICC, or central line not in place; IV infusing or unable to flush. Hydrocortisone Sod Suc (PF) (Solu-Cortef) inj 100 mg 100 mg, IV Push, ONCE PRN Other, Hypersensitivity Reaction, Starting on Mon05/16/23 at 1213, Until Mon05/17/23 at 1212, For 24 hours LORAzepam (Ativan) tab 0.5 mg 0.5 mg, Oral, ONCE PRN Anxiety, Nausea, Starting on Mon05/16/23 at 1315, Until Discontinued NSS infusion Intravenous, at 50 mL/hr, PRN, Starting on Mon05/16/23 at 1315, Until Discontinued, Maintenance line Start Infusion 05/16/2023 12:20 PM EDT 50 mL/hr oxygen GAS Inhalation, OXYGEN, First dose on Mon05/16/23 at 1600, Until Discontinued, Device/Managed by: Low [...] Push, PRN Other, IV Flush, Starting on Mon05/16/23 at 1213, Until Mon05/17/23 at 1212, For 24 hours, Do not flush if [...] PROTECT FROM LIGHT, ONCE, 1 dose, On Mon05/16/23 at 1345 Start Infusion 05/16/2023 1:58 PM [...] Given 05/16/2023 12:27 PM EDT 20 mg PACLitaxel (Taxol) 84 [...] at 1315, For 1 dose, Restricted per [facility] antiemetic guidelines Given 05/16/2023 12:27 PM EDT 0.25 mg documented in this encounter Advance Directives Documents on File Type Date Recorded Patient Senior Mechanical Estimator Expl anation POLST 03/23/2023 4:05 PM POLST [...] patient or by statute hierarchy) Care Teams Vocal Performer Relationship Specialty Start Date End Date Barrett Dacosta MD [address] [place] [address] PCP - General Family Medicine 04/11/18 documented as of this encounter
--- OUTSIDE RECORDS SUMMARY | 2023-07-22 02:22 | External Medical Summary ---
Author Name Unknown Address Unknown Organization [id number]:[facility] [place] [address] Laboratory Report Ordering Provider Test Date Status KRISTINE SAWYER 05/15/2023 10:33:29 Final Observation Date Value Abnormality Reference (Units ) Status SYNC LEUKOCYTES IN BLOOD BY AUTOMATED COUNT 05/15/2023 10:33:29 5.56 4.00-10.80 (K/uL) Final Segs 05/15/2023 10:33:29 76.4 Above high normal 40.0-75.0 (%) Final Lymphs % 05/15/2023 10:33:29 11.2 Below low normal 18.0-42.0 (%) Final Monos 05/15/2023 10:33:29 4.7 1.0-11.0 (%) Final Eosinophils 05/15/2023 10:33:29 7.2 Above high normal 0.0-6.0 (%) Final Basos 05/15/2023 10:33:29 0.5 0.0-2.0 (%) Final Absolute Segs 05/15/2023 10:33:29 4.25 1.80-7.70 (K/uL) Final Lymphs, absolute 05/15/2023 10:33:29 0.62 Below low normal 1.00-4.80 (K/ul) Final Monos, Abs 05/15/2023 10:33:29 0.26 0.00-1.10 (K/uL) Final Eos, Abs 05/15/2023 10:33:29 0.40 0.00-0.70 (K/uL) Final Basos, Abs 05/15/2023 10:33:29 0.03 0.00-0.20 (K/uL) Final Performing Location [facility] [place] [address]
--- OUTSIDE RECORDS SUMMARY | 2023-07-22 02:22 | External Medical Summary | Summary of Care ---
Author Name Unknown Organization [facility] Address [address] [place] [facility] [place] [place] [address] Phone [phone] Care Team Providers Care Boarder Steam Name Role Phone Barrett Dacosta MD Primary Care Provider + Reason for Visit * Reason Comments Chemotherapy C1/D1 - Taxol/Carbop latin * Episode Based Medications (Routine) - Authorized Specialty Diagnoses / Procedures Referred By Contbrian t Referred To Contact Diagnoses Encounter for antineoplastic chemotherapy Esophageal adenocarcinoma (HCC) Procedures MO PALONOSETRON HCL MO CARBOPLATIN INJECTION MO PACLITAXEL INJECTION Werner Roland MD 200 [facility] [place] [address] Anc Hem/Onc [facility] Ivory [address] [place] [address] [place] [address] Referral ID Status Reason Start Date Expiration Date V isits Requested Visits Authorized [id number] Authorized 05/03/2023 05/03/[phone] Encounter Details Date Type Department Care Team (Latest Contact Info) Description 05/09/2023 1:00 PM EST Hem/Onc Treatment Hematology/Oncolog y Treatment, [address] [place] [address] Ivory, Chair 6 Hem Onc [address] [place] [address] Encounter for antineoplastic chemotherapy*; Esophageal adenocarcinoma (HCC) Allergies No known active allergiesdocumented as of this encounter (statuses as of 05/09/2023) Medications Medication Sig Dispensed Refills Start Date [...] 36 Tablet 0 05/03/2023 Active oxyCODONE HCl 5 MG Oral Tablet (Oxy IR)Indications:Malign ant neoplasm of esophagus, unspecified location (HCC),Status post lumbar spinal fusion Take 1 Tablet by mouth every 4 hours as needed for Pain, Moderate or Pain, Severe. 120 Tablet 0 05/03/2023 Active documented as of this encounter (statuses as of 05/09/2023) Active Problems Problem Noted Date Diagnosed Date [...] of left vertebral artery 06/03/2022 Overview: 05/26 [facility] Type 2 diabetes mellitus wit h [...] as of this encounter (statuses as of 05/09/2023) Resolved Problems Problem Noted Date Diagnosed Date [...] as of this encounter (statuses as of 05/09/2023) Immunizations Name Administration Dates Next Due COVID-19 mRNA, LNP-s, No Pre serve, 2-Dose Series ([employer]) 02/20/2021,06/17/2020,05/26/2020 Covid-19, Mrna, Lnp-s, Pf, B ivalent, [...] per patient Patient has dialysis every M, , . Patient will get labs done the day [...] Team (Late st Contact Info) Description 05/15/2023 9:10 AM EDT Laboratory Laboratory [facility] [place] [address] [place] [phone] Iv[place], Lab [facility] [address] [facility] [place] [address] 05/16/2023 11:45 AM EDT Hem/Onc Treatment Hematology/Oncology Treatment, [address] [place] [phone] Ivory, Chair 2 Hem Onc [facility] [address] [place] [address] [address] [address] 05/22/2023 8:50 AM EDT Laboratory Laboratory [facility] Ivory [place] [address] [place] [address] Ivory Lab [facility] [address] [facility] [place] [address] 05/23/2023 8:00 AM EDT Office Visit Hematology/Oncology [facility] Ivory [place] [address] [place] [address] Maribel Broussard CRNP 400 [facility] [place] [address] 05/23/2023 8:30 AM EDT Hem/Onc Treatment Hematology/Oncology Treatment, [address] [phone] Ivory, Chair 4 Hem Onc [facility] [address] [place] [address] [address] [address] 05/29/2023 9:20 AM EDT Laboratory Laboratory [facility] [address] [place], [place] [phone] Park, Lab Scenery [address] [place] [address] 05/30/2023 11:45 AM EDT Hem/Onc Treatment Hematology/Oncology Treatment, [place] 200 [facility], [place] [phone] Ivory, Chair 8 Hem Onc Scenery [address] [place], [place] [address] 06/05/2023 8:40 AM EDT Laboratory Laboratory [facility] [place] [address] [place], [place] [phone] Ivory, Lab Scenery [address] [place], [place] [address] 06/06/2023 11:45 AM EDT Hem/Onc Treatment Hematology/Oncology Treatment, [place] 200 [facility], [place] [address] Ivory, Chair 8 Hem Onc Scenery [address] [place], [place] [address] 06/29/2023 8:00 AM EDT Office Visit Family Practice [facility] 132 [place] [address] Barrett Dacosta MD [facility] [address] 01/23/2024 11:00 AM EST Telemedicine [facility] [place] [address] [place] [address] Earle Murphy MD [address] [place], [place] [id number] Scheduled Procedures Name Priority Associated Diagnoses Date/Ti [...] ONCE PRN Other, Hypersensitivity Reaction, Starting on Mon05/09/23 at 1338, Until Mon05/10/23 at 1337, For 24 hours EPINEPHrine 1 MG/ML inj 0.3 mg 0.3 mg, Intramuscular, ONCE PRN Other, Hypersensitivity Reaction or Anaphylaxis, Starting on Mon05/09/23 at 1338, Until Mon05/10/23 at 1337, For 24 hours hEParin 100 UNIT/ML Lock Flush inj 500 Units 500 Units (5 mL), IV Lock, PRN Other, IV Flush, Starting on Mon05/09/23 at 1338, Until Mon05/10/23 at 1337, For 24 hours, Do not flush if lock, PICC, or central line not in place; IV infusing or unable to flush. Hydrocortisone Sod Suc (PF) (Solu-Cortef) inj 100 mg 100 mg, IV Push, ONCE PRN Other, Hypersensitivity Reaction, Starting on Mon05/09/23 at 1338, Until Mon05/10/23 at 1337, For 24 hours LORAzepam (Ativan) tab 0.5 mg 0.5 mg, Oral, ONCE PRN Anxiety, Nausea, Starting on Mon05/09/23 at 1445, Until Discontinued NSS infusion Intravenous, at 50 mL/hr, PRN, Starting on Mon05/09/23 at 1445, Until Discontinued, Maintenance line Start Infusion 05/09/2023 1:48 PM EST 50 mL/hr oxygen GAS Inhalation, OXYGEN, First dose on Mon05/09/23 at 1600, Until Discontinued, Device/Managed by: Low [...] Push, PRN Other, IV Flush, Starting on Mon05/09/23 at 1338, Until Mon05/10/23 at 1337, For 24 hours, Do not flush if [...] Given 05/09/2023 1:47 PM EST 20 mg PACLitaxel (Taxol) 84 mg in [...] Documents on File Type Date Recorded Patient Tire Mold Tester Expl anation POLST 03/23/2023 4:05 PM POLST [...] patient or by statute hierarchy) Care Teams Boarder Steam Relationship Specialty Start Date End Date Barrett Dacosta MD [address] [place] [address] PCP - General Family Medicine 04/11/18 documented as of this encounter
--- OUTSIDE RECORDS SUMMARY | 2023-07-22 02:22 | External Medical Summary ---
Author Name Unknown Address Unknown Organization K09:[facility]- [address] [place] [address] Laboratory Report Ordering Provider Test Date Status KRISTINE SAWYER 05/15/2023 10:33:29 Final Observation Date Value Abnormality Reference (Units ) Status BUN 05/15/2023 10:33:29 28 Above high normal 6-20 (mg/dL) Final Creatinine 05/15/2023 10:33:29 2.6 Above high normal 0.6-1.2 (mg/dL) Final Glomerular filtration rate/1.73 sq M.predicted [Volume Rate/Area] in Serum, Plasma or Blood by Creatinine-based formula (CKD-EPI) 05/15/2023 10:33:29 25 Below low normal >=60 (mL/min) Final eGFR is calculated based on the CKD-EPI 2020 equation SODIUM 05/15/2023 10:33:29 139 135-146 (m mol/L) Final Potassium 05/15/2023 10:33:29 4.6 3.5-5.1 (m mol/L) Final Cl 05/15/2023 10:33:29 96 Below low normal 98- 107 (mmol/L) Final CO2 05/15/2023 10:33:29 31 22-32 (mmo l/L) Final Anion gap 05/15/2023 10:33:29 12 7-15 (mmol /L) Final Glucose 05/15/2023 10:33:29 102 70-120 (mg /dL) Final Albumin 05/15/2023 10:33:29 4.1 3.8-5.0 (g /dL) Final AST (Aspartate aminotransferase) 05/15/2023 10:33:29 20 10-50 (U/L) Fin al Alk Phos 05/15/2023 10:33:29 119 35-130 (U/ L) Final Bilirubin, Total 05/15/2023 10:33:29 0.4 <=1 .2 (mg/dL) Final Calcium 05/15/2023 10:33:29 10.0 8.4-10.2 ( mg/dL) Final Protein 05/15/2023 10:33:29 8.3 6.0-8.3 (g /dL) Final ALT (Alanine aminotransferase) 05/15/2023 10:33:29 <5 Below low normal 10-50 (U/L) Final Performing Location [facility] [address] [place] [address]
--- OUTSIDE RECORDS SUMMARY | 2023-07-22 02:22 | External Medical Summary | Summary of Care ---
Author Name Unknown Organization [facility] Address [address] [facility] [place] [address] Phone [phone] Care Team Providers Care Manager Traffic Name Role Phone Barrett Dacosta MD Primary Care Provider + Reason for Visit * Reason Comments Outpatient Testing Encounter Details Date Type Department Care Team (Late st Contact Info) Description 05/15/2023 9:10 AM EDT Laboratory Laboratory [facility] [place] [address] [place] [phone] [facility] Lab Scenery [address] [facility] [place] [address] Esophageal adenocarcinoma (HCC) Allergies No known active [...] Overview: 05/26 [facility] Type 2 diabetes mellitus wit h chronic [...] wk. CVA 05/26 [facility]. Left sided weakness. 05/26 [facility] normal EF Grade 2 Farmer Dys. Moderate [...] mRNA, LNP-s, No Pre serve, 2-Dose Series ([employer]) 02/20/2021,06/17/2020,05/26/2020 Covid-19, Mrna, Lnp-s, Pf, B [...] 05/16/2023 11:45 AM EDT Hem[facility] [address] [facility] [place] [phone] Ivory, Chair 2 Hem Onc Scenery [address] [place] [address] 05/22/2023 8:50 AM EDT Laboratory Laboratory [facility] [place] [address] [place] [address] Ivory Lab [facility] [address] [facility] [place] [address] 05/23/2023 8:00 AM EDT Office Visit Hematology/Oncology [facility] [place] [address] [place] [address] [phone] Maribel Broussard CRNP [address] [place], [place] [address] [address] 05/23/2023 8:30 AM EDT Hem/Onc Treatment Hematology/Oncology Treatment, [place] [facility] [phone] Ivory, Chair 4 Hem Onc Scenery [address] [place] [address] 05/29/2023 9:20 AM EDT Laboratory Laboratory [facility] [place] [address] [phone] Ivory Lab Scenery [address] [place] [address] 05/30/2023 11:45 AM EDT Hem/Onc Treatment Hematology/Oncology Treatment, [place] 200 [place] [phone] Ivory, Chair 8 Hem Onc [address]en[address] [place], [place] [address] 06/05/2023 8:40 AM EDT Laboratory Laboratory Scenery [place] [address] [place], [place] [phone] Ivory, Lab Scenery [address] [place], [place] [address] 06/06/2023 11:45 AM EDT Hem/Onc Treatment Hematology/Oncology Treatment, [place] 200 [place] [phone] Ivory, Chair 8 Hem Onc Scenery [address] [place], [place] [address] 06/29/2023 8:00 AM EDT Office Visit Family Practice [facility] 132 [facility] [place] [address] Barrett Dacosta MD 132 [facility] [place] [address] 01/23/2024 11:00 AM EST Telemedicine [facility] [address] [place] [address] Earle Murphy MD [address] [place] [address] Pending Results Name Type Priority Associated Diagnoses Date /Time COMPREHENSIVE METABOLIC PANEL Lab STAT Esophageal adenocarcinoma (HCC) 05/15/2023 10:33 AM EDT Scheduled Procedures Name Priority Associated [...] Procedure Name Priority Date/Time Associated Diagnosis Comments DIFFERENTIAL, AUTOMATED STAT 05/15/2023 10:33 AM EDT Esophageal adenocarcinoma (HCC) CBC STAT 05/15/2023 10:33 AM EDT Esophageal adenocarcinoma (HCC) CBC STAT 05/15/2023 10:33 AM EDT Esophageal adenocarcinoma (HCC) documented in this encounter Results * (ABNORMAL) DIFFERENTIAL, AUTOMATED (05/15/2023 10:33 AM EDT) WBC 5.56 4.00 - 10.80 K/uL 05/15/2023 10:41 AM EDT [facility] 56-02 Neutrophils % 76.4(H) 40.0 - 75.0 % 05/15/2023 10:41 AM EDT [facility] 56-02 Lymphocytes % 11.2(L) 18.0 - 42.0 % 05/15/2023 10:41 AM EDT [facility] 56-02 Monocytes % 4.7 1.0 - 11.0 % 05/15/2023 10:41 AM EDT [facility] 56-02 Eosinophils % 7.2(H) 0.0 - 6.0 % 05/15/2023 10:41 AM EDT [facility] 56-02 Basophils % 0.5 0.0 - 2.0 % 05/15/2023 10:41 AM EDT [facility] 56-02 Absolute Neutrophils 4.25 1.80 - 7.70 K/uL 05/15/2023 10:41 AM EDT [facility] 56-02 Absolute Lymphocytes 0.62(L) 1.00 - 4.80 K/ul 05/15/2023 10:41 AM EDT [facility] 56-02 Absolute Monocytes 0.26 0.00 - 1.10 K/uL 05/15/2023 10:41 AM EDT [facility] 56-02 Absolute Eosinophils 0.40 0.00 - 0.70 K/uL 05/15/2023 10:41 AM EDT [facility] 56-02 Absolute Basophils 0.03 0.00 - 0.20 K/uL 05/15/2023 10:41 AM EDT [facility] 56-02 Blood Venous blood specimen / Unknown Venipuncture / Unknown 05/15/2023 10:33 AM EDT 05/15/2023 10:33 AM EDT Werner Roland MD LAB BLOOD ORDERABLES [facility] [address] [place] [address] * (ABNORMAL) CBC (05/15/2023 10:33 AM EDT) WBC 5.56 4.00 - 10.80 K/uL 05/15/2023 10:41 AM EDT [facility] 56- RBC 3.43 4.50 - 5.25 M/uL 05/15/2023 10:41 AM EDT [facility] 56 HGB 10.5(L) 14.0 - 16.8 g/dL 05/15/2023 10:41 AM EDT [facility] 56 HCT 33.6(L) 40.0 - 48.4 % 05/15/2023 10:41 AM EDT [facility] 56 MCV 98.0 82.0 - 99.5 fL 05/15/2023 10:41 AM EDT [address] MCH 30.6 27.0 - 34.0 pg 05/15/2023 10:41 AM EDT [facility] 56 MCHC 31.3 32.0 - 36.0 g/dL 05/15/2023 10:41 AM EDT [facility] 56 RDW 15.8 11.5 - 15.5 % 05/15/2023 10:41 AM EDT [facility] 56 PLT 292 140 - 400 K/uL 05/15/2023 10:41 AM EDT [facility] 5602 MPV 9.6 6.6 - 11.1 fL 05/15/2023 10:41 AM EDT [facility] 5602 Blood Venous blood specimen / Unknown Venipuncture / Unknown 05/15/2023 10:33 AM EDT 05/15/2023 10:33 AM EDT Werner Roland MD LAB BLOOD ORDERABLES [facility] [address] [place] [address] documented in this encounter Visit Diagnoses Diagnosis Esophageal adenocarcinoma (HCC) Malignant neoplasm of esophagus, unspecified site documented in this encounter Advance Directives Documents on File Type Date Recorded Patient Lobby Attendant Expl anation POLST 03/23/2023 4:05 PM POLST [...] or by statute hierarchy) Care Teams Manager Traffic Relationship Specialty Start Date End Date Barrett Dacosta MD [address] [place] [address] PCP - General Family Medicine 04/11/18 documented as of this encounter
--- NOTE | 2023-07-22 07:43 | Discharge Summary ---
Discharge Summary Date of Service July 22, 2023 Notes For Next Care Provider Pt after being transitioned to comfort measures only in the ICU. Medication Changes From Visit None, pt Admission HPI Per Admitting Provider Patient is a 78-year-old gentleman with known previous history of small bowel and large bowel obstructions. Previously required laparotomy for bowel obstruction with formation of a colostomy. Patient also has known esophageal cancer. Just completed course of radiation and chemotherapy. He was deemed not a candidate for surgical intervention. Patient also has end-stage renal disease on hemodialysis. Presented to the emergency room with above complaints. Imaging in the emergency room showed a high-grade small bowel obstruction most likely due to internal hernia. CT also noted evidence of liver metastasis. Time of my evaluation the patient denied nausea. He states he has not had any vomiting. States that his symptoms essentially started earlier this morning. He also noted that his colostomy output has been decreasing over the last 24 hours. He is quite convinced that his abdominal discomfort is due to the fact that he has been a lot his bowels get a little harder. He is on chronic opioids for his cancer pain. He states usually he keeps his bowels fairly soft. He denies any fever or chills. He denies any chest pain or shortness of breath. His at the bedside reports that he did have a PET scan on Monday but does not know the results of the PET scan as of yet. Admission Exam Per Admitting Provider Constitutional: Alert, ill in appearance, nontoxic, frail somewhat cachectic HEENT: Mucous membranes slightly dry. Sclera clear Neck: Soft, no adenopathy Lungs: Clear to auscultation, decreased, no wheezes rales or rhonchi CV: S1-S2, regular Abdomen: Absent to hyperactive bowel sounds, not overly distended, no tympany, colostomy pink, no significant output Extremities: No significant edema Musculoskeletal: No significant joint tenderness Neuro: chronic left-sided weakness from previous stroke Psych: Cooperative, flat affect, slightly depressed Principal Dx & Hospital Course #1 = Principal Diagnosis (1) SBO (small bowel obstruction): (2) Elevated lactic acid level: (3) 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: (4) Primary carcinoma of lower third of esophagus: (5) ESRD (end stage renal disease) on dialysis: Plan Patient is a 78-year-old gentleman with metastatic esophageal adenocarcinoma to the liver, end-stage renal disease on hemodialysis, history of chronic left- sided weakness from previous stroke and previous bowel obstructions presenting to the emergency room with abdominal pain. Imaging shows high-grade small bowel obstruction. Also patient has significant lactic acidosis and elevated procalcitonin raising possibility of bacterial infection possibly due to his bowel obstruction. Septic Shock Metastatic Esophageal adenocarcinoma SBO ESRD on dialysis CT showing High-grade small bowel obstruction, likely secondary to an internal hernia General surgery was consulted- pt declining surgery Hypotensive requiring pressor support- pt eventually agreeable to ICU transfer for pressors Discussion with Nephrology- pt would like to stop dialysis and other treatments after further discussion with his family members. Per Launch Steward discussion with patient and family, pt and family would like to pursue comfort measures only. Pressors were eventually discontinued. Pt was transitioned to comfort measures only on 07/21/23 and in the early AM of 07/22/23 at 1:02 AM. called and updated on 07/22/23. Discharge Exam Pt was not seen by this provider on the day of discharge. Updated Medication List Medication Instructions Recorded Confirmed Type latanoprost 0.005 % eye drops 1 drp OPB HS 03/23/21 07/20/23 History (Xalatan) torsemide 100 mg tablet 100 mg PO QAM 05/26/22 07/20/23 History vitamin B complex-vitamin C-folic 1 tab PO QPM 09/05/22 07/20/23 History acid 0.8 mg tablet (Belinda-Moose) sennosides 8.8 mg/5 mL oral syrup 5 ml PO BID PRN Constipation 01/02/23 07/20/23 History (senna) sevelamer carbonate 800 mg tablet 800 mg PO UD 01/02/23 07/20/23 History (Renvela) omeprazole 40 mg capsule,delayed 40 mg PO QAM 03/27/23 07/20/23 History release metoprolol succinate 25 mg 12.5 mg PO QAM 07/20/23 07/20/23 History tablet,extended release 24 hr oxycodone 10 mg tablet 10 mg PO Q6H PRN Severe Pain 07/20/23 07/20/23 History (Scale Score 7-10) prochlorperazine maleate 10 mg 10 mg PO Q6H PRN Nausea And 07/20/23 07/20/23 History tablet Vomiting Hospital Stay Data Consultations 07/20/23 17:10 Consult General Surgery Routine ED Decision to Admit Stat 07/20/23 17:41 Consult Nephrology Routine 07/21/23 09:07 Consult Launch Steward Routine Diagnostic Imagining Performed 07/20/23 14:57 CT Abd and Pelvis [CT abd pelvis wo con] Stat Abdomen/Pelvis CT 07/20/23 14:[address] WITHOUT CONTRAST CT DOSE: 548.65 mGy.cm HISTORY: Acute generalized abdominal pain abdominal pain TECHNIQUE: Multiaxial CT images of the abdomen and pelvis were performed without contrast. A dose lowering technique was utilized adhering to the principles of ALARA. COMPARISON STUDY: PET/CT from outside facility 01/31/2023 without report FINDINGS: Limited exam without the use of IV contrast. Heart is upper limits of normal in size. Extensive coronary artery calcifications. Calcific granuloma in the basal left lower lobe redemonstrated. No pneumatosis or pneumoperitoneum. Diminutive unenhanced spleen is unremarkable. Moderately atrophic pancreas. Unremarkable adrenal glands. Distended gallbladder with wall thickening. Indeterminate 1.7 cm hypodense lesion of the hepatic dome on image 11 series 2, not definitively seen on the prior study. Additional ill-defined hypodense lesion of the posterior right hepatic lobe on image 15 series 2. Cortical thinning of the kidneys, right greater than left with right renal atrophy redemonstrated. Probable simple and complex cysts within the kidneys redemonstrated. These lesions however are incomplete characterized on this study. No hydronephrosis. Decompressed urinary bladder with wall thickening. The pelvic structures are not well evaluated secondary to streak artifact related to the right hip arthroplasty and left proximal femoral ORIF hardware. Atherosclerosis of the aorta. Mild nonspecific periportal lymphadenopathy. Subcentimeter periaortic and pericaval lymph nodes. Distal esophageal wall thickening. Distended air and fluid-filled stomach. The area of hypermetabolic activity within the gastric cardia on the prior study may correlate with an ill-defined area of soft tissue thickening on image 61 series 3. High-grade small bowel obstruction with dilated air and fluid-filled loops of small bowel measuring up to 4.6 cm. There is associated small bowel wall thickening with intraluminal edema. Left lower quadrant descending colostomy redemonstrated. The majority of the large bowel decompressed. A loop of large bowel within the mid lower pelvis demonstrates circumferential wall thickening with hyperemia. There is swirling of the mesentery with transition point noted on image 149 series 3 with marked narrowing of the small bowel distally to this area. No acute fracture. Degenerative and postoperative changes of the spine. IMPRESSION: 1. High-grade small bowel obstruction, likely secondary to an internal hernia. There is associated reactive small bowel wall thickening with trace ascites and interloop edema. Surgical consultation is needed. 2. Hypermetabolic lesion within the region of the gastric cardia seen on the study from 01/31/2023 may correlate with an ill-defined area of soft tissue thickening within the proximal stomach on today's study. 3. Interval development of hepatic metastasis. 4. Gallbladder distention with wall thickening. Findings could be correlated with ultrasound. 5. No pneumatosis or pneumoperitoneum. 6. Left lower quadrant colostomy. 7. Additional findings as above. ACT 112: Negative or not required by law. The above report was generated using voice recognition software. It may contain grammatical, syntax or spelling errors. Electronically signed by: Velasquez Reveles M.D. 07/20/2023 4:26 PM Chest X-Ray 07/20/23 22:54 SINGLE VIEW CHEST CLINICAL HISTORY: Renal failure. FINDINGS: An AP, portable, upright chest radiograph is compared to study dated 03/27/2023. The examination is degraded by portable technique and patient rotation. The heart is enlarged noting atherosclerotic calcification of the thoracic aorta. The pulmonary vasculature is noncongested. Chronic interstitial thickening is similar to previous. There is chronic elevation of the left hemidiaphragm, with bibasilar scarring/atelectasis. No airspace consolidation or large pleural effusion is identified. A large calcified granuloma is seen at the left lung base. No pneumothorax is seen. The skeletal structures are osteopenic. The bony thorax is grossly intact. IMPRESSION: Cardiomegaly with no acute cardiopulmonary abnormality identified. ACT 112: Negative or not required by law. Electronically signed by: Rayshawn Javed M.D. 07/21/2023 7:46 AM KUB X-Ray 07/21/23 11:45 KUB HISTORY: Small bowel obstruction NGT Placement COMPARISON: CT 07/20/2023 FINDINGS: Persistent small bowel obstruction with dilated air-filled loops of small bowel measuring up to 5.6 cm. Distended stomach. The right lateral and upper abdomen are excluded from the [id number]. Distal tip of enteric tube projects over the gastric body. No renal calculi. No ureteral calculi. No pneumoperitoneum or pneumatosis. Fusion hardware of the lumbar spine with hardware present within the bilateral proximal femora. No fracture. IMPRESSION: 1. Persistent small bowel obstruction. 2. Distal tip of enteric tube projects over the distended mid gastric body. ACT 112: Negative or not required by law. The above report was generated using voice recognition software. It may contain grammatical, syntax or spelling errors. Electronically signed by: Velasquez Reveles M.D. 07/21/2023 1:40 PM Discharge Instructions Given to Patient (Per Discharging Provider) Pt Total Time Total Time Spent Total Time Spent (In Minutes): 60
== END 2023-07-22 01:37 | disposition expired | DRG 871 ==
LOC: ED 14:13 → 3W 17:42 → SUATTDRO 17:42 → 3W 20:15 → 2S 22:03 → 1E 07-21 09:40 → 3E 07-21 21:31